=== PATIENT | male | born 1945 | race Hispanic/Latino ===

== ENCOUNTER 2017-05-14 04:53 | Inpatient (IN) | payer MEDICAID, OTHER ==
[2017-05-14] MEDS ORDERED: Sodium Chloride 0.9% 1,000 ML IV STA (05:19)
--- NOTE | 2017-05-14 05:25 | ED PDOC ---
Arrival/HPI - General Chief Complaint: Abdominal Pain Time Seen by Provider: 05/14/17 04:58 - History of Present Illness Narrative History of Present Illness (Text): 05/14/17 05:21 72 yo male, hx of htn, dm, stent, presetns witha bdominal pain x 2 weeks. son states pt visiting from [place]. pt was noticed to be jaundice. no fevers, no diarrhea, no urinary changes Past Medical History - Cardiac Hx Hypertension: Yes - Pulmonary Hx Respiratory Disorders: No - Neurological Hx Neurological Disorder: No - HEENT Hx HEENT Disorder: No - Renal Hx Renal Disorder: No - Endocrine/Metabolic Hx Diabetes Mellitus Type 2: Yes Other/Comment: goiter - Hematological/Oncological Hx Blood Disorders: No - Integumentary Hx Dermatological Disorder: No - Musculoskeletal/Rheumatological Hx Musculoskeletal Disorders: No - Gastrointestinal Hx Gastrointestinal Disorders: No - Genitourinary/Gynecological Hx Prostate Problems: Yes - Psychiatric Hx Psychophysiologic Disorder: No Hx Substance Use: No - Surgical History Hx Coronary Stent: Yes (x1 2011) Other/Comment: prostate Family/Social History - Physician Review Nursing Documentation Reviewed: Yes Family/Social History: Unknown Family HX Smoking Status: Never Smoked Hx Alcohol Use: No Hx Substance Use: No Allergies/Home Meds Allergies/Adverse Reactions: Allergies No Known Allergies Allergy (Verified 05/14/17 05:11) Home Medications: Home Meds Medication Instructions Recorded Confirmed Aspirin [Aspirin Chewable] 100 mg PO DAILY 05/14/17 05/14/17 Levothyroxine [Synthroid] 100 mcg PO DAILY 05/14/17 05/14/17 Review of Systems - Review of Systems Constitutional: Normal Eyes: Normal ENT: Normal Respiratory: Normal Cardiovascular: Normal Gastrointestinal: Abdominal Pain Genitourinary Male: Normal Musculoskeletal: Normal Skin: Other (jaundice) Neurological: Normal Endocrine: Normal Hemo/Lymphatic: Normal Psychiatric: Normal Physical Exam Vital Signs Temp Pulse Resp BP Pulse Ox 05/14/17 12:05 62 18 111/62 99 05/14/17 10:43 62 18 100/66 99 05/14/17 07:25 56 L 18 112/66 98 05/14/17 05:11 98.9 F 67 18 124/67 96 Temperature: Afebrile Blood Pressure: Normal Pulse: Regular Respiratory Rate: Normal Appearance: Positive for: Well-Appearing, Non-Toxic, Comfortable Pain Distress: None Mental Status: Positive for: Alert and Oriented X 3 - Systems Exam Head: Present: Atraumatic, Normocephalic Pupils: Present: PERRL Extroacular Muscles: Present: EOMI Conjunctiva: Present: Icteric Mouth: Present: Moist Mucous Membranes Neck: Present: Normal Range of Motion Respiratory/Chest: Present: Clear to Auscultation, Good Air Exchange. No: Respiratory Distress, Accessory Muscle Use Cardiovascular: Present: Regular Rate and Rhythm, Normal S1, S2. No: Murmurs Abdomen: Present: Tenderness (mild non focal, worse lower). No: Distention, Peritoneal Signs, Rebound, Guarding Back: Present: Normal Inspection Upper Extremity: Present: Normal Inspection. No: Cyanosis, Edema Lower Extremity: Present: Normal Inspection. No: Edema Neurological: Present: GCS=15, CN II-XII Intact, Speech Normal Skin: Present: Warm, Dry, Other (jaundice). No: Rashes Psychiatric: Present: Alert, Oriented x 3, Normal Insight, Normal Concentration Medical Decision Making ED Course and Treatment: 05/14/17 05:24 jaundice- suspect post post hepatic- r/o malcignacy, vs less likely prehepatic - hemolysis - Lab Interpretations Lab Results: 05/14/17 05:28 05/14/17 05:28 Lab Results 05/14/17 06:11: Urine Color Yellow, Urine Appearance Sl cloudy, Urine pH 6.5, Ur Specific [place] 1.010, Urine Protein Trace H, Urine Glucose (UA) Negative, Urine Ketones Negative, Urine Blood Negative, Urine Nitrate Positive H, Urine Bilirubin Large H, Urine Urobilinogen 0.2, Ur Leukocyte Esterase Small H, Urine RBC 0 - 2, Urine WBC 2 - 5, Ur Epithelial Cells 0 - 2, Urine Bacteria Many 05/14/17 05:28: PT 11.5, INR 1.00, APTT 25.4 05/14/17 05:28: WBC 10.0, RBC 4.24, Hgb 12.4 L, Hct 34.3 L, MCV 80.9, MCH 29.2, MCHC 36.2, RDW 16.9 H, Plt Count 265, MPV 10.2, Gran % 77.7 H, Lymph % (Auto) 12.9 L, [place] % (Auto) 8.5 H, Eos % (Auto) 0.8 L, Baso % (Auto) 0.1, Gran # 7.74 H, Lymph # (Auto) 1.3, [place] # (Auto) 0.9 H, Eos # (Auto) 0.1, Baso # (Auto) 0.01 05/14/17 05:28: Ammonia < 9 L 05/14/17 05:28: Sodium 136, Potassium 3.3 L, Chloride 99, Carbon Dioxide 27, Anion Gap 13, BUN 30 H, Creatinine 1.1, Est GFR ( Amer) > 60, Est GFR ( Non-Af Amer) > 60, Random Glucose 103, Calcium 9.5, Total Bilirubin 18.5 H*, Direct Bilirubin 16.4 H, AST 63 H, ALT 60 H, Alkaline Phosphatase 246 H, Total Protein 7.5, Albumin 3.7, Globulin 3.8, Albumin/Globulin Ratio 1.0 L, Lipase 451 H 05/14/17 05:00: Hepatitis A IgM Ab Negative, Hep Bs Antigen Negative, Hep B Core IgM Ab Negative, Hepatitis C Antibody Negative 05/14/17 05:00: Alpha Fetoprotein < 0.8 05/14/17 05:00: Procalcitonin 0.34 05/14/17 05:00: Magnesium 2.4 H - RAD Interpretation Radiology Orders: 05/14/17 05:59 ABD & PELVIS IV CONTRAST ONLY [CT] Stat - Medication Orders Current Medication Orders: Sodium Chloride (Sodium Chloride 0.9%) 1,000 mls @ 100 mls/hr IV .Q10H [facility] Last Admin: 05/14/17 11:23 Dose: 100 mls/hr eMAR Start Stop Document 05/14/17 11:23 [facility] (Rec: 05/14/17 11:24 [facility]-[id number]) Intravenous Solution Start Date 05/14/17 Start Time 11:23 Insulin Human Regular (Humulin R Low) 0 units SC Q6H NINA PRN Reason: Protocol Last Admin: 05/14/17 17:00 Dose: Not Given Non-Admin Reason: Blood Sugar Parameter MAR Blood Glucose Document 05/14/17 17:00 LMN (Rec: 05/14/17 18:43 [place]N [facility] [id number] Blood Glucose Finger Stick Blood Glucose (70-120) 56 Levothyroxine Sodium (Synthroid) 50 mcg IVP DAILY NINA Last Admin: 05/14/17 18:43 Dose: 50 mcg IVP Administration Document 05/14/17 18:43 LMN (Rec: 05/14/17 18:46 LMN [facility] [id number] Charges for Administration # of IVP Administrations 1 Pantoprazole Sodium (Protonix Inj) 40 mg IVP DAILY NINA Discontinued Medications Sodium Chloride (Sodium Chloride 0.9%) 1,000 mls @ 1,000 mls/hr IV .Q1H STA Stop: 05/14/17 06:18 Last Admin: 05/14/17 05:33 Dose: 1,000 mls/hr eMAR Start Stop Document 05/14/17 05:33 AD (Rec: 05/14/17 05:33 AD [id number]) Intravenous Solution Start Date 05/14/17 Start Time 05:33 Ceftriaxone Sodium (Rocephin 1 Gram Ivpb) 1 gm in 100 mls @ 100 mls/hr IVPB DAILY NINA PRN Reason: Protocol Last Admin: 05/14/17 11:22 Dose: 100 mls/hr eMAR Start Stop Document 05/14/17 11:22 INSTRUMENT REPAIR TECHNICIAN (Rec: 05/14/17 11:23 INSTRUMENT REPAIR TECHNICIAN [id number]) Intravenous Solution Start Date 05/14/17 Start Time 11:23 Potassium Chloride (K-Dur 20 Meq Er Tab) 40 meq PO STAT STA Stop: 05/14/17 06:02 Last Admin: 05/14/17 07:04 Dose: 40 meq Potassium Chloride (K-Dur 20 Meq Er Tab) 40 meq PO STAT STA Stop: 05/14/17 18:43 Disposition/Present on Arrival - Present on Arrival Any Indicators Present on Arrival: No History of DVT/PE: No History of Uncontrolled Diabetes: No Urinary Catheter: No History of Decub. Ulcer: No History Surgical Site Infection Following: None - Disposition Have Diagnosis and Disposition been Completed?: Yes Diagnosis: Liver mass, Hyperbilirubinemia, Hypokalemia Disposition: HOSPITALIZED Disposition Time: 07:00 Patient Problems: Current Active Problems Problem Status Onset Anemia Acute Hyperbilirubinemia Acute Hypokalemia Acute Liver mass Acute Condition: FAIR
[2017-05-14 05:56] LABS: PARTIAL THROMBOPLASTIN TIME 25.4 Seconds (25.1-36.5); PROTHROMBIN TIME 11.5 SECONDS (9.4-12.5)
[2017-05-14 05:58] LABS: ALT/SGPT 60 U/L (7-56); AST/SGOT 63 U/L (17-59); BILIRUBIN,DIRECT 16.4 mg/dL (0.0-0.4); BLOOD UREA NITROGEN 30 mg/dL (7-21); CALCIUM 9.5 mg/dL (8.4-10.5); GFR AFRICAN-AMERICAN > 60; GFR NON-AFRICAN AMERICAN > 60; LIPASE 451 U/L (23-300)
[2017-05-14] MEDS ORDERED: Potassium Chloride 20 mEq ER Tab PO STA ×3 (06:01→18:42)
[2017-05-14 06:12] LABS: BASO # 0.01 K/mm3 (0.0-2.0); BASO % 0.1 % (0.0-3.0); EOS # 0.1 (0.0-0.7); EOS % 0.8 % (1.5-5.0); GRAN # 7.74 (1.4-6.5); GRAN % 77.7 % (50.0-68.0); HEMOGLOBIN 12.4 g/dL (14.0-18.0); LYMPH # 1.3 (1.2-3.4); LYMPH % 12.9 % (22.0-35.0); MEAN CELL VOLUME 80.9 fl (80.0-105.0); MEAN CORPUSCULAR HEMOGLOBIN 29.2 pg (25.0-35.0); MEAN CORPUSCULAR HGB CONC 36.2 g/dl (31.0-37.0); MEAN PLATELET VOLUME 10.2 fl (7.0-11.0); MONO # 0.9 (0.1-0.6); MONO % 8.5 % (1.0-6.0); RBC 4.24 10^6/uL (3.5-6.1); RED CELL DISTRIBUTION WIDTH 16.9 % (11.5-14.5)
[2017-05-14 06:13] LABS: ALBUMIN 3.7 g/dL (3.0-4.8)
[2017-05-14 06:26] LABS: PH,URINE 6.5 (4.7-8.0); URINE BILIRUBIN LARGE (NEGATIVE); URINE BLOOD NEGATIVE (NEGATIVE); URINE GLUCOSE (UA) NEGATIVE (NEGATIVE); URINE LEUKOCYTE ESTERASE SMALL Leu/uL (NEGATIVE); URINE PROTEIN TRACE mg/dL (<30 mg/dL); URINE UROBILINOGEN 0.2 E.U./dL (<1 E.U./dL)
[2017-05-14] MEDS ORDERED: Iohexol 350 MG/100 ML VIAL ONE (06:29)
[2017-05-14 06:49] LABS: URINE COLOR YELLOW (YELLOW)
[2017-05-14 06:50] LABS: URINE APPEARANCE SL CLOUDY (CLEAR)
[2017-05-14 06:52] LABS: URINE BACTERIA MANY (NEG); URINE EPITHELIAL CELLS 0 - 2 /hpf (0-5); URINE RBC 0 - 2 /hpf (0-2)
--- NOTE | 2017-05-14 07:28 | ED PDOC ---
Physical Exam Vital Signs Temp Pulse Resp BP Pulse Ox 05/14/17 07:25 56 L 18 112/66 98 05/14/17 05:11 98.9 F 67 18 124/67 96 Medical Decision Making ED Course and Treatment: 05/14/17 07:13 Patient transferred to ms by Dr. Tarango. Patient awaiting follow-up CT scan and to be admitted. 05/14/2017 08:09 Abd/Pelvis CT IMPRESSION: 1. There is nodular airspace disease at the right lung base posteriorly. This could represent pneumonia. Followup imaging is recommended. 2. There is severe intrahepatic biliary dilatation. The common bile duct is not dilated which suggests an obstructing lesion in the region of the alfred hepatis. Surgical consultation is recommended. 3. There is a poorly defined mass in the right hepatic lobe bordering the falciform ligament concerning for malignancy. 4. There is nodularity and induration throughout the mesentery which may reflect peritoneal implants. 5. There is narrowing of the main portal vein. Minimal thrombus within the main portal vein cannot be excluded. Dictator: Rhett Shepard MD 05/14/17 09:[address] Morales, whom recommends Dr. Garcia for GI. Patient to be admitted to med surgical floor. 05/14/17 10:[address] Garcia, GI, who recommends an MRCP +/- contrast and an IR consult, Duarte Guerra. He will follow. Dr. Morales made aware and she will f /u with MRCP. - Lab Interpretations Lab Results: 05/14/17 05:28 05/14/17 05:28 Lab Results 05/14/17 06:11: Urine Color Yellow, Urine Appearance Sl cloudy, Urine pH 6.5, Ur Specific [place] 1.010, Urine Protein Trace H, Urine Glucose (UA) Negative, Urine Ketones Negative, Urine Blood Negative, Urine Nitrate Positive H, Urine Bilirubin Large H, Urine Urobilinogen 0.2, Ur Leukocyte Esterase Small H, Urine RBC 0 - 2, Urine WBC 2 - 5, Ur Epithelial Cells 0 - 2, Urine Bacteria Many 05/14/17 05:28: PT 11.5, INR 1.00, APTT 25.4 05/14/17 05:28: WBC 10.0, RBC 4.24, Hgb 12.4 L, Hct 34.3 L, MCV 80.9, MCH 29.2, MCHC 36.2, RDW 16.9 H, Plt Count 265, MPV 10.2, Gran % 77.7 H, Lymph % (Auto) 12.9 L, [place] % (Auto) 8.5 H, Eos % (Auto) 0.8 L, Baso % (Auto) 0.1, Gran # 7.74 H, Lymph # (Auto) 1.3, [place] # (Auto) 0.9 H, Eos # (Auto) 0.1, Baso # (Auto) 0.01 05/14/17 05:28: Ammonia < 9 L 05/14/17 05:28: Sodium 136, Potassium 3.3 L, Chloride 99, Carbon Dioxide 27, Anion Gap 13, BUN 30 H, Creatinine 1.1, Est GFR ( Amer) > 60, Est GFR ( Non-Af Amer) > 60, Random Glucose 103, Calcium 9.5, Total Bilirubin 18.5 H*, Direct Bilirubin 16.4 H, AST 63 H, ALT 60 H, Alkaline Phosphatase 246 H, Total Protein 7.5, Albumin 3.7, Globulin 3.8, Albumin/Globulin Ratio 1.0 L, Lipase 451 H - RAD Interpretation Radiology Orders: 05/14/17 05:59 ABD & PELVIS IV CONTRAST ONLY [CT] Stat - Medication Orders Current Medication Orders: Ceftriaxone Sodium (Rocephin 1 Gram Ivpb) 1 gm in 100 mls @ 100 mls/hr IVPB DAILY NINA PRN Reason: Protocol Discontinued Medications Sodium Chloride (Sodium Chloride 0.9%) 1,000 mls @ 1,000 mls/hr IV .Q1H STA Stop: 05/14/17 06:18 Last Admin: 05/14/17 05:33 Dose: 1,000 mls/hr eMAR Start Stop Document 05/14/17 05:33 AD (Rec: 05/14/17 05:33 AD [id number]) Intravenous Solution Start Date 05/14/17 Start Time 05:33 Potassium Chloride (K-Dur 20 Meq Er Tab) 40 meq PO STAT STA Stop: 05/14/17 06:02 Last Admin: 05/14/17 07:04 Dose: 40 meq - Scribe Statement The provider has reviewed the documentation as recorded by the Manuel Andrea Provider Scribe Attestation: All medical record entries made by the Scribe were at my direction and personally dictated by me. I have reviewed the chart and agree that the record accurately reflects my personal performance of the history, physical exam, medical decision making, and the department course for this patient. I have also personally directed, reviewed, and agree with the discharge instructions and disposition. Disposition/Present on Arrival - Present on Arrival Any Indicators Present on Arrival: No History of DVT/PE: No History of Uncontrolled Diabetes: No Urinary Catheter: No History of Decub. Ulcer: No History Surgical Site Infection Following: None - Disposition Have Diagnosis and Disposition been Completed?: Yes Diagnosis: Liver mass, Hyperbilirubinemia, Hypokalemia Disposition Time: 10:08 Condition: FAIR Referrals: PCP,NO [Primary Care Provider] - Follow up with primary Forms: [employer] (Slovak)
--- NOTE | 2017-05-14 08:09 | CT ---
EXAM: CT Abdomen and Pelvis With Intravenous Contrast CLINICAL HISTORY: 72 years old, male; Pain; Abdominal pain; Generalized; Additional info: Abd pain, jaundice TECHNIQUE: Axial computed tomography images of the abdomen and pelvis with intravenous contrast. All CT scans at this facility use one or more dose reduction techniques, viz.: automated exposure control; ma/kV adjustment per patient size (including targeted exams where dose is matched to indication; i.e. head); or iterative reconstruction technique. Coronal and sagittal reformatted images were created and reviewed. CONTRAST: 100 mL of [id number] administered intravenously. COMPARISON: No relevant prior studies available. FINDINGS: Lung bases: There is nodular airspace disease at the right lung base posteriorly. This could represent pneumonia. Followup imaging is recommended. ABDOMEN: Liver: There is a poorly defined mass in the right hepatic lobe bordering the falciform ligament concerning for malignancy. Gallbladder and bile ducts: There is severe intrahepatic biliary dilatation. The common bile duct is not dilated which suggests an obstructing lesion in the region of the alfred hepatis. Surgical consultation is recommended. Pancreas: Unremarkable. No mass. No ductal dilation. Spleen: Unremarkable. No splenomegaly. Adrenals: Unremarkable. No mass. Kidneys and ureters: There is moderate right-sided hydronephrosis. There is fullness of the left renal collecting system. Stomach and bowel: There is a moderate amount of stool throughout the colon. No obstruction. No mucosal thickening. Appendix: No findings to suggest acute appendicitis. PELVIS: Bladder: The urinary bladder is moderately distended, please correlate clinically. Reproductive: Unremarkable as visualized. ABDOMEN and PELVIS: Intraperitoneal space: There is nodularity and induration throughout the mesentery which may reflect peritoneal implants. No free air. No significant fluid collection. Bones/joints: No acute fracture. No dislocation. Soft tissues: Unremarkable. Vasculature: There is narrowing of the main portal vein. Minimal thrombus within the main portal vein cannot be excluded. There are calcified atherosclerotic changes of the aorta. No abdominal aortic aneurysm. Lymph nodes: Unremarkable. No enlarged lymph nodes. IMPRESSION: 1. There is nodular airspace disease at the right lung base posteriorly. This could represent pneumonia. Followup imaging is recommended. 2. There is severe intrahepatic biliary dilatation. The common bile duct is not dilated which suggests an obstructing lesion in the region of the alfred hepatis. Surgical consultation is recommended. 3. There is a poorly defined mass in the right hepatic lobe bordering the falciform ligament concerning for malignancy. 4. There is nodularity and induration throughout the mesentery which may reflect peritoneal implants. 5. There is narrowing of the main portal vein. Minimal thrombus within the main portal vein cannot be excluded.
[2017-05-14] MEDS ORDERED: cefTRIAXone 1 gm 1 GM/100 ML BAG IVPB SCH (10:00)
--- NOTE | 2017-05-14 10:12 | CP.PCM.CON ---
History of Present Illness - History of Present Illness History of Present Illness: General Surgery Consult: Dr Bright Re: liver mass, hyperbilirubinemia, jaundice Pt is a 72M with PMH of DM, HTN, and CAD s/p 1 stent. Pt is visiting his son from [place] and does not speak malaysian. Son is bedside to assist with translation. Pt reports that for the past 2 weeks he has been having worsening dull abdominal pain. His pain is diffuse with no specific location, non- radiating, not exarcerbated by movement, positioning or PO intake. He reports normal BMs throughout this time. Denies any N/V, f/c, hemoptysis, hematochezia. He does state that the yellowing of his skin has coincided with his abdominal pain. Pt denies any night sweats or significant recent weight loss PMH: DM2, HTN PSH: PCI (1 stent), ? of prostate biopsy non-smoker, no EtOH use Review of Systems - Review of Systems All systems: reviewed and no additional remarkable complaints except (as per hpi ) Past Patient History - Past Social History Smoking Status: Never Smoked - CARDIAC Hx Hypertension: Yes - PULMONARY Hx Respiratory Disorders: No - NEUROLOGICAL Hx Neurological Disorder: No - HEENT Hx HEENT Problems: No - RENAL Hx Chronic Kidney Disease: No - ENDOCRINE/METABOLIC Hx Diabetes Mellitus Type 2: Yes Other/Comment: goiter - HEMATOLOGICAL/ONCOLOGICAL Hx Blood Disorders: No - INTEGUMENTARY Hx Dermatological Problems: No - MUSCULOSKELETAL/RHEUMATOLOGICAL Hx Musculoskeletal Disorders: No - GASTROINTESTINAL Hx Gastrointestinal Disorders: No - GENITOURINARY/GYNECOLOGICAL Hx Prostate Problems: Yes - PSYCHIATRIC Hx Psychophysiologic Disorder: No Hx Substance Use: No - SURGICAL HISTORY Hx Coronary Stent: Yes (x1 2011) Other/Comment: prostate Meds Allergies/Adverse Reactions: Allergies Allergy/AdvReac Type Severity Reaction Status Date / Time No Known Allergies Allergy Verified 05/14/17 05:11 - Medications Medications: Current Medications Ceftriaxone Sodium (Rocephin 1 Gram Ivpb) 1 gm in 100 mls @ 100 mls/hr IVPB DAILY NINA PRN Reason: Protocol Physical Exam - Constitutional Appears: Non-toxic, No Acute Distress - Head Exam Head Exam: ATRAUMATIC - Eye Exam Eye Exam: Normal appearance, Scleral icterus Pupil Exam: NORMAL ACCOMODATION - ENT Exam ENT Exam: Mucous Membranes Moist - Neck Exam Neck exam: Positive for: Normal Inspection. Negative for: Lymphadenopathy, Tenderness - Respiratory Exam Respiratory Exam: NORMAL BREATHING PATTERN. absent: Accessory Muscle Use, Respiratory Distress - Cardiovascular Exam Cardiovascular Exam: REGULAR RHYTHM. absent: Tachycardia - GI/Abdominal Exam GI & Abdominal Exam: Distended, Soft. absent: Firm, Guarding, Hernia, Mass, Organomegaly, Pulsatile Mass, Rebound, Rigid, Tenderness (pt states pain has resolved after medication) - Rectal Exam Rectal Exam: Deferred - Extremities Exam Extremities exam: Negative for: pedal edema - Neurological Exam Neurological exam: Alert - Psychiatric Exam Psychiatric exam: Normal Affect, Normal Mood - Skin Skin Exam: Dry, Warm Additional comments: jaundice Results - Vital Signs Recent Vital Signs: Last Vital Signs Temp 98.9 F 05/14/17 05:11 Pulse 56 L 05/14/17 07:25 Resp 18 05/14/17 07:25 BP 112/66 05/14/17 07:25 Pulse Ox 98 05/14/17 07:25 - Labs Result Diagrams: 05/14/17 05:28 05/14/17 05:28 Assessment & Plan - Assessment and Plan (Free Text) Assessment: 72[address] evidence of obstructive liver mass w/ jaundice and hyperbilirubinemia Plan: MRCP of abdomen ordered f/u tumor markers and work-up Perc drainage with IR - possible biopsy simultaneously will f/u results initial CT with obstructive liver mass and peritoneal mets will d/w Dr Deangelo Stoner, PGY3
[2017-05-14] MEDS ORDERED: Sodium Chloride 0.9% 1,000 ML IV SCH (11:00)
[2017-05-14] MEDS ORDERED: Gadodiamide 287 MG/ML VIAL (15ML) IV ONE (13:33)
[2017-05-14 15:02] VITALS: BMI 24.0
--- NOTE | 2017-05-14 15:09 | MRI ---
PROCEDURE: MRI Abdomen with and without contrast plus MRCP imaging HISTORY: Elevated bili, liver mass, abdominal pain COMPARISON: None available. TECHNIQUE: Multisequence, multiplanar MR images of the abdomen with and without gadolinium contrast enhancement. 15 cc of Omniscan FINDINGS: LIVER: There is a 3 cm nonenhancing mass in the medial segment of the left lobe of the liver. GALLBLADDER: There is severe intrahepatic ductal dilatation. The level of obstruction is in the region of the alfred hepatis. This is most likely secondary to cholangiocarcinoma especially in considering the adjacent hepatic mass. The common duct is normal in caliber and there is no evidence of a pancreatic mass. . SPLEEN: Unremarkable. PANCREAS: Unremarkable. ADRENALS: Unremarkable. KIDNEYS: Unremarkable. AORTA: No aneurysm. ASCITES: None. PERITONEUM: Unremarkable. LYMPH NODES: Unremarkable. OTHER FINDINGS: None. IMPRESSION: There is severe intrahepatic ductal dilatation. The level of obstruction is in the region of the alfred hepatis. This is most likely secondary to cholangiocarcinoma especially in considering the adjacent hepatic mass. The common duct is normal in caliber and there is no evidence of a pancreatic mass. .
--- NOTE | 2017-05-14 15:17 | RAD ---
PROCEDURE: CHEST RADIOGRAPH, 1 VIEW HISTORY: r/o pneumonia COMPARISON: None available. FINDINGS: LUNGS: Clear. PLEURA: No pneumothorax or pleural fluid seen. CARDIOVASCULAR: Normal. OSSEOUS STRUCTURES: No significant abnormalities. VISUALIZED UPPER ABDOMEN: Normal. OTHER FINDINGS: None. IMPRESSION: No active disease.
--- NOTE | 2017-05-14 15:24 | CP.PCM.CON ---
<Rajesh Schrader - Last Filed: 05/14/17 17:14> History of Present Illness - History of Present Illness History of Present Illness: PGY4 Initial GI Consult Note Mark Lynch is a 72M w/ hx of HTN, DM, HL who presents to the ER for jaundice. Pt returned recently from [place] and his family noticed that he was turning yellow. His family states that it has been occurring for the past 2 weeks. Family also noticed that he was loosing weight, but cannot quantify. Pt also had abd pain, which started yesterday. He stated that it was in the epigastric area and radiated to the lower abdomen. He notes that the pain was at least a 7 out 10. He noted resolution of his pain after pain medication. Pt denies any fever, chills or diaphoresis. Denies any previous colonoscopy or endoscopy. He denies any BRBPR, melena, hematemesis or coffee-ground emesis PMH: DM2, HTN PSH: PCI (1 stent), ? of prostate biopsy non-smoker, no EtOH use Family hx: reviewed and denies any hx of colon ca, liver or cancreas Endo hx: none ROS: 12 point ROS conducted, neg other than above Past Patient History - Past Social History Smoking Status: Former Smoker - CARDIAC Hx Cardiac Disorders: Yes Hx Hypertension: Yes Hx Peripheral Edema: Yes (at times) - PULMONARY Hx Respiratory Disorders: No - NEUROLOGICAL Hx Neurological Disorder: No - HEENT Hx HEENT Problems: No - RENAL Hx Chronic Kidney Disease: No - ENDOCRINE/METABOLIC Other/Comment: hx of surgical removal of goiter. fasting glucose around 125 per son - HEMATOLOGICAL/ONCOLOGICAL Hx Blood Disorders: No - INTEGUMENTARY Hx Dermatological Problems: No - MUSCULOSKELETAL/RHEUMATOLOGICAL Hx Back Pain: Yes Hx Falls: No - GASTROINTESTINAL Hx Gastrointestinal Disorders: No Other/Comment: onset of abd pain 2 weeks ago - GENITOURINARY/GYNECOLOGICAL Hx Prostate Problems: Yes - PSYCHIATRIC Hx Substance Use: No - SURGICAL HISTORY Hx Surgeries: Yes Hx Cardiac Catheterization: Yes Hx Coronary Stent: Yes (2011) Other/Comment: surgery for goiter and prostate Meds Allergies/Adverse Reactions: Allergies Allergy/AdvReac Type Severity Reaction Status Date / Time No Known Allergies Allergy Verified 05/14/17 05:11 - Medications Medications: Current Medications Ceftriaxone Sodium (Rocephin 1 Gram Ivpb) 1 gm in 100 mls @ 100 mls/hr IVPB DAILY NINA PRN Reason: Protocol Last Admin: 05/14/17 11:22 Dose: 100 mls/hr Sodium Chloride (Sodium Chloride 0.9%) 1,000 mls @ 100 mls/hr IV .Q10H NINA Last Admin: 05/14/17 11:23 Dose: 100 mls/hr Insulin Human Regular (Humulin R Low) 0 units SC Q6H NINA PRN Reason: Protocol Levothyroxine Sodium (Synthroid) 50 mcg IVP DAILY NINA Pantoprazole Sodium (Protonix Inj) 40 mg IVP DAILY NINA Physical Exam - Constitutional Appears: Older Than Stated Age, Chronically Ill - Head Exam Head Exam: ATRAUMATIC, NORMOCEPHALIC - Eye Exam Eye Exam: Scleral icterus - ENT Exam ENT Exam: Mucous Membranes Moist, Normal Exam - Neck Exam Neck exam: Positive for: Normal Inspection - Respiratory Exam Respiratory Exam: Clear to Auscultation Bilateral, NORMAL BREATHING PATTERN. absent: Rales, Rhonchi, Wheezes, Respiratory Distress - Cardiovascular Exam Cardiovascular Exam: REGULAR RHYTHM, +S1, +S2 - GI/Abdominal Exam GI & Abdominal Exam: Normal Bowel Sounds, Soft. absent: Diminished Bowel Sounds , Distended, Firm, Guarding, Hernia, Organomegaly, Rebound, Rigid, Tenderness - Extremities Exam Extremities exam: Negative for: joint swelling, pedal edema - Back Exam Back exam: NORMAL INSPECTION - Neurological Exam Neurological exam: Alert, Oriented x3 - Psychiatric Exam Psychiatric exam: Normal Affect, Normal Mood - Skin Skin Exam: Dry, Intact, Normal Color, Warm Results - Vital Signs Recent Vital Signs: Last Vital Signs Temp 99.2 F 05/14/17 14:23 Pulse 60 05/14/17 14:23 Resp 20 05/14/17 14:23 BP 112/65 05/14/17 14:23 Pulse Ox 98 05/14/17 12:20 - Labs Result Diagrams: 05/14/17 05:28 05/14/17 05:28 Labs: Laboratory Results - last 24 hr 05/14/17 11:53 TSH 3rd Generation 1.59 Assessment & Plan - Assessment and Plan (Free Text) Assessment: Mark Lynch is a 72M w/ hx of DM, HTN, HL who presents to the ER with jd. MRI revealed a mass at the alfred hepatitis, and suspicion of cholangiocarcinoma. 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 Shankar (IR) and primary team, will try to setup procedure -surgery on board -send for viral hepatitis work-up, automimmine, CEA, Ca-19-9 D/W Dr. bennett <Dre Bennett - Last Filed: 05/14/17 19:23> Meds - Medications Medications: Current Medications Sodium Chloride (Sodium Chloride 0.9%) 1,000 mls @ 100 mls/hr IV .Q10H NINA Last Admin: 05/14/17 11:23 Dose: 100 mls/hr Insulin Human Regular (Humulin R Low) 0 units SC Q6H NINA PRN Reason: Protocol Last Admin: 05/14/17 17:00 Dose: Not Given Levothyroxine Sodium (Synthroid) 50 mcg IVP DAILY NINA Last Admin: 05/14/17 18:43 Dose: 50 mcg Pantoprazole Sodium (Protonix Inj) 40 mg IVP DAILY NINA Results - Vital Signs Recent Vital Signs: Last Vital Signs Temp 99.2 F 05/14/17 14:23 Pulse 60 05/14/17 14:23 Resp 20 05/14/17 14:23 BP 112/65 05/14/17 14:23 Pulse Ox 96 05/14/17 14:00 - Labs Result Diagrams: 05/14/17 05:28 05/14/17 05:28 Labs: Laboratory Results - last 24 hr 05/14/17 05/14/17 11:53 17:15 POC Glucose (mg/dL) 56 L TSH 3rd Generation 1.59 Attending/Attestation - Attestation I have personally seen and examined this patient.: Yes I have fully participated in the care of the patient.: Yes I have reviewed all pertinent clinical information: Yes Notes (Text): 05/14/17 19:22 72 year old male with DM, HTN who presents with jaundice found to have mine- hilar mass suspicious for cholangiocarcinoma. Recommend surgery evaluation. If patient is not a surgical candidate, which seems unlikely due to portal vein involvement and peritoneal implants, then would recommend IR guided biopsy and biliary drainage. Eval for chronic liver disease and tumor markers.
--- NOTE | 2017-05-14 15:54 | CP.PCM.HP ---
<Jak Mckinneynatalia - Last Filed: 05/14/17 16:11> History of Present Illness - History of Present Illness History of Present Illness: Medicine H/P note for Dr. Morales - Jak Mckinney DO, PGY - 1 Chief Complaint: Abdominal Pain HPI: 72 year old albanian speaking male with past medical history significant for hypertension, diabetes, hypothyroidism 2/2 thyroidectomy, CAD s/p stent in 2011 with completed plavix presents to [facility] two week duration of abdominal pain. Patient is originally from [place], came here to visit his family a week ago. 15 days ago, patient states that he went from his baseline of no pain to having severe abdominal pain. He went to his doctor in [facility], who did a RUQ abdominal ultrasound, which showed some obstruction but no gall bladder disease. Patient then came to the [place], where he began seeing changes in his urine color (dark) and stool (white stools). Throughout this time, patient was intermittently unable to tolerate PO intake, and was having nausea and vomiting. Patient's son noticed color changes (jaundice), and brought his father in today because the abdominal pain has become much more severe. Of note , patient has lost 12 kg (84 kg to 72 kg) over the last two weeks. Patient denies any other symptoms including chest pain, shortness of breath, diarrhea Past Surgical History: Oral surgery removing abscess; Prostate surgery with biopsy showing benign disease; Coronary stent; Thyroidectomy Past Medical History: Hypertension, Diabetes, Hypothyroidism, CAD Allergies: NKDA Social History: Quit smoking 25 years ago; Denies alcohol, illicits Hospitalizations: Recently in [place] with abdominal ultrasound for same complaint Family History: Patient denies Medications: Reviewed, See MAR Review of Systems: 12 point ROS obtained and negative, except as per HPI PMD: None, patient from [place] Present on Admission - Present on Admission Any Indicators Present on Admission: No Past Patient History - Past Social History Smoking Status: Former Smoker - CARDIAC Hx Cardiac Disorders: Yes Hx Hypertension: Yes Hx Peripheral Edema: Yes (at times) - PULMONARY Hx Respiratory Disorders: No - NEUROLOGICAL Hx Neurological Disorder: No - HEENT Hx HEENT Problems: No - RENAL Hx Chronic Kidney Disease: No - ENDOCRINE/METABOLIC Other/Comment: hx of surgical removal of goiter. fasting glucose around 125 per son - HEMATOLOGICAL/ONCOLOGICAL Hx Blood Disorders: No - INTEGUMENTARY Hx Dermatological Problems: No - MUSCULOSKELETAL/RHEUMATOLOGICAL Hx Back Pain: Yes Hx Falls: No - GASTROINTESTINAL Hx Gastrointestinal Disorders: No Other/Comment: onset of abd pain 2 weeks ago - GENITOURINARY/GYNECOLOGICAL Hx Prostate Problems: Yes - PSYCHIATRIC Hx Substance Use: No - SURGICAL HISTORY Hx Surgeries: Yes Hx Cardiac Catheterization: Yes Hx Coronary Stent: Yes (2011) Other/Comment: surgery for goiter and prostate Meds Allergies/Adverse Reactions: Allergies Allergy/AdvReac Type Severity Reaction Status Date / Time No Known Allergies Allergy Verified 05/14/17 05:11 Physical Exam - Constitutional Appears: Well - Head Exam Head Exam: ATRAUMATIC, NORMAL INSPECTION, NORMOCEPHALIC - Eye Exam Eye Exam: EOMI, Normal appearance, PERRL Pupil Exam: NORMAL ACCOMODATION, PERRL - ENT Exam ENT Exam: Mucous Membranes Moist, Normal Exam - Neck Exam Neck exam: Positive for: Normal Inspection - Respiratory Exam Respiratory Exam: Clear to Auscultation Bilateral, NORMAL BREATHING PATTERN - Cardiovascular Exam Cardiovascular Exam: REGULAR RHYTHM - GI/Abdominal Exam GI & Abdominal Exam: Normal Bowel Sounds, Soft. absent: Tenderness - Extremities Exam Extremities exam: Positive for: normal inspection - Back Exam Back exam: NORMAL INSPECTION - Neurological Exam Neurological exam: Alert, CN II-XII Intact, Normal Gait, Oriented x3, Reflexes Normal - Psychiatric Exam Psychiatric exam: Normal Affect, Normal Mood - Skin Skin Exam: Dry, Intact, Normal Color, Warm Results - Vital Signs Recent Vital Signs: Last Vital Signs Temp 99.2 F 05/14/17 14:23 Pulse 60 05/14/17 14:23 Resp 20 05/14/17 14:23 BP 112/65 05/14/17 14:23 Pulse Ox 98 05/14/17 12:20 - Labs Result Diagrams: 05/14/17 05:28 05/14/17 05:28 Labs: Laboratory Results - last 24 hr 05/14/17 11:53 TSH 3rd Generation 1.59 Assessment & Plan - Assessment and Plan (Free Text) Assessment: Assessment 72 year old albanian speaking male with past medical history significant for hypertension, diabetes, hypothyroidism 2/2 thyroidectomy, CAD s/p stent in 2011 with completed plavix presents to [facility] two week duration of abdominal pain. CT Abdomen pelvis shows mild dilation of common bile duct (not in official read) , and shows obstructing lesion in the region of the alfred hepatis as well as mass in the right hepatic lobe concerning for malignancy. Direct bilirubin and Total bilirubin are grossly elevated with elevation in Alk Phos; however, given CT Abdomen pelvis findings, less likely a picture of biliary sludge or gall bladder etiology and most likely hyperbilirubinemia due to obstruction by mass. Patient also has a UTI with pos nitrates and small leuk esterase. Plan Abdominal pain, possibly 2/2 to hepatic malignancy VS biliary obstruction - Surgery consult: Dr. Bright MRCP of abdomen ordered f/u tumor markers and work-up Perc drainage with IR - possible biopsy simultaneously - GI Consult: Dr. Garcia - CT Abd/Pelvis findings as above - Possible Percutaneous Transhepatic Cholangiography Hyperbilirubinemia, likely 2/2 Biliary Obstruction due to Hepatic malignancy - As above - Hepatitis panel, AFP, IGG, KAUSHIK IFA, Hep BE Ag, Mitochondrial Ab, Smooth Muscle Ab UTI - Rocephin History of CAD s/p Stents - Daily ASA History of Hypertension - Patient is normotensive right now - Patient takes medication from [place] - will address if patient's blood pressure changes History of Diabetes - RISS Low - Accuchecks History of Hypothyroidism - 50 mcg IVP GI and DVT Prophylaxis - Protonix, Heparin <Rangasamy,Ajantha - Last Filed: 05/15/17 14:00> Results - Vital Signs Recent Vital Signs: Last Vital Signs Temp 98.4 F 05/15/17 06:00 Pulse 68 05/15/17 06:00 Resp 20 05/15/17 06:00 BP 119/72 05/15/17 06:00 Pulse Ox 96 05/15/17 06:00 - Labs Result Diagrams: 05/15/17 06:45 05/15/17 07:00 Labs: Laboratory Results - last 24 hr 05/14/17 05/15/17 05/15/17 17:15 00:12 05:59 WBC RBC Hgb Hct MCV MCH MCHC RDW Plt Count MPV Gran % Lymph % (Auto) [place] % (Auto) Eos % (Auto) Baso % (Auto) Gran # Lymph # (Auto) [place] # (Auto) Eos # (Auto) Baso # (Auto) Retic Count Sodium Potassium Chloride Carbon Dioxide Anion Gap BUN Creatinine Est GFR ( Amer) Est GFR (Non-Af Amer) POC Glucose (mg/dL) 56 L 70 71 Random Glucose Calcium Ferritin Total Bilirubin Direct Bilirubin AST ALT Alkaline Phosphatase Total Protein Albumin Globulin Albumin/Globulin Ratio Carcinoembryonic Ag CA 19-9 Antigen Vitamin B12 Folate IgG Hepatitis A IgM Ab Hep Bs Antigen Hep B Core IgM Ab Hepatitis C Antibody 05/15/17 05/15/17 05/15/17 06:45 06:45 06:45 WBC RBC Hgb Hct MCV MCH MCHC RDW Plt Count MPV Gran % Lymph % (Auto) [place] % (Auto) Eos % (Auto) Baso % (Auto) Gran # Lymph # (Auto) [place] # (Auto) Eos # (Auto) Baso # (Auto) Retic Count Sodium Potassium Chloride Carbon Dioxide Anion Gap BUN Creatinine Est GFR ( Amer) Est GFR (Non-Af Amer) POC Glucose (mg/dL) Random Glucose Calcium Ferritin 235.0 Total Bilirubin Direct Bilirubin AST ALT Alkaline Phosphatase Total Protein Albumin Globulin Albumin/Globulin Ratio Carcinoembryonic Ag 7.4 H CA 19-9 Antigen 6510 H Vitamin B12 900 Folate 14.8 IgG 731.3 Hepatitis A IgM Ab Negative Hep Bs Antigen Negative Negative Hep B Core IgM Ab Negative Negative Hepatitis C Antibody Negative 05/15/17 05/15/17 05/15/17 06:45 06:45 07:00 WBC 6.2 D RBC 3.82 Hgb 10.9 L Hct 31.2 L MCV 81.7 MCH 28.5 MCHC 34.9 RDW 17.4 H Plt Count 284 MPV 10.6 Gran % 70.1 H Lymph % (Auto) 21.3 L [place] % (Auto) 6.5 H Eos % (Auto) 1.9 Baso % (Auto) 0.2 Gran # 4.34 Lymph # (Auto) 1.3 [place] # (Auto) 0.4 Eos # (Auto) 0.1 Baso # (Auto) 0.01 Retic Count 1.55 H Sodium 142 Potassium 4.2 Chloride 107 Carbon Dioxide 27 Anion Gap 13 BUN 18 Creatinine 0.8 Est GFR ( Amer) > 60 Est GFR (Non-Af Amer) > 60 POC Glucose (mg/dL) Random Glucose 81 Calcium 9.2 Ferritin Total Bilirubin 17.4 H Direct Bilirubin 15.4 H AST 91 H D ALT 65 H Alkaline Phosphatase 192 H D Total Protein 6.5 Albumin 3.1 Globulin 3.4 Albumin/Globulin Ratio 0.9 L Carcinoembryonic Ag CA 19-9 Antigen Vitamin B12 Folate IgG Hepatitis A IgM Ab Hep Bs Antigen Hep B Core IgM Ab Hepatitis C Antibody Attending/Attestation - Attestation I have personally seen and examined this patient.: Yes I have fully participated in the care of the patient.: Yes I have reviewed all pertinent clinical information: Yes Notes (Text): 05/15/17 13:52 Attending note; Patient seen and examined with resident in ER. Patient's son by the bedside helping with history. Patient is a 72 year old Russian speaking male from [place] with past medical history significant for hypertension, diabetes, hypothyroidism 2/2 thyroidectomy , CAD s/p stent in 2011 with completed plavix, recently diagnosed liver problem in [place] presents to [facility] with abdominal pain. Patient's son also noticed yellow skin. Patient also complaining of occasional nausea. Currently not in any acute distress. Apparently the patient was told by physician in [place] that he has a liver problem. Further information not available. Currently with obstructive jaundice. CT abdomen and pelvis showed dilated intra- ductal dilatation and liver mass and nodularity in the mesentery suggesting metastatic disease. MRCP is negative for CBD stone. 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 There is adjacent liver mass. Results reviewed with GI and surgery. Case discussed with oncology in detail. AFP is negative. CEA, CA 199 ordered. Case discussed with interventional radiologist in detail. Plan for biliary stent and liver biopsy tomorrow. 05/15/17 13:57
[2017-05-14 16:51] LABS: HEPATITIS B SURFACE AG Negative (NEGATIVE)
[2017-05-14 16:57] LABS: HEPATITIS A IGM NEGATIVE (NEGATIVE); HEPATITIS B CORE AB NEGATIVE (NEGATIVE)
[2017-05-14] MEDS: Insulin Reg-LOW-Coverage SC SCH (17:00)
[2017-05-14 17:09] LABS: HEPATITIS C ANTIBODY NEGATIVE (NEGATIVE)
--- NOTE | 2017-05-14 17:26 | CP.PCM.CON ---
History of Present Illness - History of Present Illness History of Present Illness: 72 year old male with a history of hypothyroid, cAD s/p stent, DM, HTN, admitted with obstructive jaundice secondary to liver mass. The patient recently traveled from [place]. He apparently was found to have a liver mass by ultrasound in his country. He does note to darkening of his skin and yellowing of his eyes. He denies fevers and chills. Imaging shows intrahepatic ductal dilatation, liver mass, and mesenteric nodularity suggestive of peritoneal implants. Past medical history: hypothyroid, cAD s/p stent, DM, HTN Past surgical history: Thyroidectomy Family history: Denies hematologic and oncologic problems Social history: Former tobacco abuse Allergies: NKA Review of systems: All remaining review of systems including HEENT, cardiovascular, respiratory, gastrointestinal, genitourinary, musculoskeletal, dermatologic, neurologic, and psychiatric are negative unless mentioned in the HPI. Past Patient History - Past Social History Smoking Status: Former Smoker - CARDIAC Hx Cardiac Disorders: Yes Hx Hypertension: Yes Hx Peripheral Edema: Yes (at times) - PULMONARY Hx Respiratory Disorders: No - NEUROLOGICAL Hx Neurological Disorder: No - HEENT Hx HEENT Problems: No - RENAL Hx Chronic Kidney Disease: No - ENDOCRINE/METABOLIC Other/Comment: hx of surgical removal of goiter. fasting glucose around 125 per son - HEMATOLOGICAL/ONCOLOGICAL Hx Blood Disorders: No - INTEGUMENTARY Hx Dermatological Problems: No - MUSCULOSKELETAL/RHEUMATOLOGICAL Hx Back Pain: Yes Hx Falls: No - GASTROINTESTINAL Hx Gastrointestinal Disorders: No Other/Comment: onset of abd pain 2 weeks ago - GENITOURINARY/GYNECOLOGICAL Hx Prostate Problems: Yes - PSYCHIATRIC Hx Substance Use: No - SURGICAL HISTORY Hx Surgeries: Yes Hx Cardiac Catheterization: Yes Hx Coronary Stent: Yes (2011) Other/Comment: surgery for goiter and prostate Meds Allergies/Adverse Reactions: Allergies Allergy/AdvReac Type Severity Reaction Status Date / Time No Known Allergies Allergy Verified 05/14/17 05:11 - Medications Medications: Current Medications Sodium Chloride (Sodium Chloride 0.9%) 1,000 mls @ 100 mls/hr IV .Q10H NINA Last Admin: 05/14/17 11:23 Dose: 100 mls/hr Insulin Human Regular (Humulin R Low) 0 units SC Q6H NINA PRN Reason: Protocol Levothyroxine Sodium (Synthroid) 50 mcg IVP DAILY NINA Pantoprazole Sodium (Protonix Inj) 40 mg IVP DAILY NINA Physical Exam - Head Exam Head Exam: ATRAUMATIC - Eye Exam Eye Exam: Scleral icterus - ENT Exam ENT Exam: Mucous Membranes Dry - Respiratory Exam Respiratory Exam: NORMAL BREATHING PATTERN - Cardiovascular Exam Cardiovascular Exam: +S1, +S2 - GI/Abdominal Exam GI & Abdominal Exam: Normal Bowel Sounds - Neurological Exam Neurological exam: Oriented x3 - Psychiatric Exam Psychiatric exam: Normal Affect, Normal Mood - Skin Skin Exam: Warm Results - Vital Signs Recent Vital Signs: Last Vital Signs Temp 99.2 F 05/14/17 14:23 Pulse 60 05/14/17 14:23 Resp 20 05/14/17 14:23 BP 112/65 05/14/17 14:23 Pulse Ox 96 05/14/17 14:00 - Labs Result Diagrams: 05/14/17 05:28 05/14/17 05:28 Labs: Laboratory Results - last 24 hr 05/14/17 05/14/17 11:53 17:15 POC Glucose (mg/dL) 56 L TSH 3rd Generation 1.59 Assessment & Plan (1) Liver mass Assessment and Plan: suspicious for malignancy ? cholangiocarcinoma AFP normal, will add CA 19-[address] chest to complete staging peritoneal implants on imaging suggestive of stage IV disease intervention for obstructive jaundice recommend liver lesion biopsy or brushing if ERCP to be done for pathologic determination Status: Acute (2) Anemia Assessment and Plan: will check ferritin, retic count, b12, folate to further characterize Thank you for this interesting consult. Status: Acute
[2017-05-14] MEDS: Levothyroxine 100 mcg (0.1 mg) Inj IVP SCH (18:43)
--- NOTE | 2017-05-14 19:09 | CARD ---
APPROVED REPORT EKG Measurement Heart [id number] <Conclusion> Sinus rhythm with 1st degree AV block Left anterior fascicular block Abnormal ECG
[2017-05-15] MEDS: Insulin Reg-LOW-Coverage SC SCH ×2 (00:27→06:23)
[2017-05-15] MEDS ORDERED: Morphine 2 mg/2 mL syringe IVP STA (03:09)
--- NOTE | 2017-05-15 07:08 | CP.PCM.PN ---
<RacielRajesh - Last Filed: 05/15/17 08:26> Subjective - Date & Time of Evaluation Date of Evaluation: 05/15/17 Time of Evaluation: 06:45 - Subjective Subjective: PGY4 GI Progress NOte Pt seen and examined bedside No complaints NPO denies any abd pain ROS: 12 point ROS conducted, neg other than above Objective - Vital Signs/Intake and Output Vital Signs (last 24 hours): Temp Pulse Resp BP Pulse Ox 99.8 F H 67 20 103/51 L 95 05/14/17 22:00 05/14/17 22:00 05/14/17 22:00 05/14/17 22:00 05/14/17 22:00 Intake and Output: 05/15/17 05/15/17 06:59 18:59 Intake Total 1740 Output Total 1150 Balance 590 - Medications Medications: Current Medications Sodium Chloride (Sodium Chloride 0.9%) 1,000 mls @ 100 mls/hr IV .Q10H [facility] Last Admin: 05/14/17 11:23 Dose: 100 mls/hr Insulin Human Regular (Humulin R Low) 0 units SC Q6H [facility] PRN Reason: Protocol Last Admin: 05/15/17 06:23 Dose: Not Given Levothyroxine Sodium (Synthroid) 50 mcg IVP DAILY [facility] Last Admin: 05/14/17 18:43 Dose: 50 mcg Pantoprazole Sodium (Protonix Inj) 40 mg IVP DAILY [facility] - Labs Labs: PT 11.5 SECONDS (9.4-12.5) 05/14/17 05:28 INR 1.00 (0.93-1.08) 05/14/17 05:28 APTT 25.4 Seconds (25.1-36.5) 05/14/17 05:28 - Constitutional Appears: Well, No Acute Distress - Head Exam Head Exam: ATRAUMATIC, NORMOCEPHALIC - Eye Exam Eye Exam: Scleral icterus - ENT Exam ENT Exam: Mucous Membranes Moist, Normal Exam - Neck Exam Neck Exam: Normal Inspection - Respiratory Exam Respiratory Exam: Clear to Ausculation Bilateral, NORMAL BREATHING PATTERN. absent: Rales, Rhonchi, Wheezes, Respiratory Distress - Cardiovascular Exam Cardiovascular Exam: REGULAR RHYTHM, +S1, +S2 - GI/Abdominal Exam GI & Abdominal Exam: Soft, Normal Bowel Sounds. absent: Firm, Guarding, Rigid, Tenderness, Mass, Organomegaly, Rebound - Extremities Exam Extremities Exam: absent: Joint Swelling, Pedal Edema - Neurological Exam Neurological Exam: Alert, Awake, Oriented x3 - Psychiatric Exam Psychiatric exam: Normal Affect, Normal Mood - Skin Skin Exam: Dry, Intact (juandiced), Warm Assessment and Plan - Assessment and Plan (Free Text) Assessment: Mark Lynch is a 72M w/ hx of DM, HTN, HL who presents to the ER with jd. MRI revealed a mass at the alfred hepatitis, and suspicion of cholangiocarcinoma. Jd Intrahepatic duct dilatation/obstruction Mass in the alfred hepatitis likely cholangiocarcinoma Plan: -oncology recommendations notes -will need a percutaneous drain, mass and liver biopsy -scheduled for procedure at [facility], transport plans pending -CEA: WNL -can add cholestyramine for purititis -surgery on board -send for viral hepatitis work-up, automimmine, Ca-19-9 Will D/W Dr. Dugan <Cristino Dugan - Last Filed: 05/15/17 09:26> Objective - Vital Signs/Intake and Output Vital Signs (last 24 hours): Temp Pulse Resp BP Pulse Ox 98.4 F 68 20 119/72 96 05/15/17 06:00 05/15/17 06:00 05/15/17 06:00 05/15/17 06:00 05/15/17 06:00 Intake and Output: 05/15/17 05/15/17 06:59 18:59 Intake Total 1740 Output Total 1150 Balance 590 - Medications Medications: Current Medications Cholestyramine Resin (Questran) 4 gm PO DAILY [facility] Dextrose/Sodium Chloride (Dextrose 5%/0.45% Ns 1000 Ml) 1,000 mls @ 100 mls/hr IV .Q10H [facility] Insulin Human Regular (Humulin R Low) 0 units SC Q6H [facility] PRN Reason: Protocol Last Admin: 05/15/17 06:23 Dose: Not Given Levothyroxine Sodium (Synthroid) 50 mcg IVP DAILY [facility] Last Admin: 05/14/17 18:43 Dose: 50 mcg Pantoprazole Sodium (Protonix Inj) 40 mg IVP DAILY [facility] - Labs Labs: 05/15/17 06:45 05/15/17 07:00 PT 11.5 SECONDS (9.4-12.5) 05/14/17 05:28 INR 1.00 (0.93-1.08) 05/14/17 05:28 APTT 25.4 Seconds (25.1-36.5) 05/14/17 05:28 Attending/Attestation - Attestation I have personally seen and examined this patient.: Yes I have fully participated in the care of the patient.: Yes I have reviewed all pertinent clinical information, including history, physical exam and plan: Yes Notes (Text): 05/15/17 09:23 I have seen and examined patient with GI fellow. No acute events overnight, patient resting in bed comfortably, son at bedside. He denies abdominal pain, nausea, vomiting, fever/chills. Tolerating PO diet without difficulty. 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 Overall poor patient prognosis. Will sign off case, please reconsult as necessary, thank you.
[2017-05-15 07:26] LABS: BASO # 0.01 K/mm3 (0.0-2.0); BASO % 0.2 % (0.0-3.0); EOS # 0.1 (0.0-0.7); EOS % 1.9 % (1.5-5.0); GRAN # 4.34 (1.4-6.5); GRAN % 70.1 % (50.0-68.0); HEMOGLOBIN 10.9 g/dL (14.0-18.0); LYMPH # 1.3 (1.2-3.4); LYMPH % 21.3 % (22.0-35.0); MEAN CELL VOLUME 81.7 fl (80.0-105.0); MEAN CORPUSCULAR HEMOGLOBIN 28.5 pg (25.0-35.0); MEAN CORPUSCULAR HGB CONC 34.9 g/dl (31.0-37.0); MEAN PLATELET VOLUME 10.6 fl (7.0-11.0); MONO # 0.4 (0.1-0.6); MONO % 6.5 % (1.0-6.0); RBC 3.82 10^6/uL (3.5-6.1); RED CELL DISTRIBUTION WIDTH 17.4 % (11.5-14.5); WHITE BLOOD COUNT 6.2 10^3/ul (4.5-11.0)
[2017-05-15] MEDS ORDERED: Iohexol 350 MG/100 ML VIAL ONE (07:26)
--- NOTE | 2017-05-15 07:37 | CP.PCM.PN ---
Subjective - Date & Time of Evaluation Date of Evaluation: 05/15/17 Time of Evaluation: 07:33 - Subjective Subjective: General Surgery: Dr Bright Pt S&E. Denies pain. LIBERTY per nursing. Pt is scheduled for procedure at [facility] today ( liver biopsy, liver mass biopsy, and percutaneous drain). Objective - Vital Signs/Intake and Output Vital Signs (last 24 hours): Temp Pulse Resp BP Pulse Ox 99.8 F H 67 20 103/51 L 95 05/14/17 22:00 05/14/17 22:00 05/14/17 22:00 05/14/17 22:00 05/14/17 22:00 Intake and Output: 05/15/17 05/15/17 06:59 18:59 Intake Total 1740 Output Total 1150 Balance 590 - Medications Medications: Current Medications Cholestyramine Resin (Questran) 4 gm PO DAILY [facility] Sodium Chloride (Sodium Chloride 0.9%) 1,000 mls @ 100 mls/hr IV .Q10H [facility] Last Admin: 05/14/17 11:23 Dose: 100 mls/hr Insulin Human Regular (Humulin R Low) 0 units SC Q6H [facility] PRN Reason: Protocol Last Admin: 05/15/17 06:23 Dose: Not Given Levothyroxine Sodium (Synthroid) 50 mcg IVP DAILY [facility] Last Admin: 05/14/17 18:43 Dose: 50 mcg Pantoprazole Sodium (Protonix Inj) 40 mg IVP DAILY [facility] - Labs Labs: 05/15/17 06:45 PT 11.5 SECONDS (9.4-12.5) 05/14/17 05:28 INR 1.00 (0.93-1.08) 05/14/17 05:28 APTT 25.4 Seconds (25.1-36.5) 05/14/17 05:28 - Constitutional Appears: Non-toxic, No Acute Distress - Eye Exam Eye Exam: Normal appearance, Scleral icterus - ENT Exam ENT Exam: Mucous Membranes Moist - Respiratory Exam Respiratory Exam: absent: Accessory Muscle Use, Respiratory Distress - Cardiovascular Exam Cardiovascular Exam: REGULAR RHYTHM. absent: Tachycardia - GI/Abdominal Exam GI & Abdominal Exam: Soft. absent: Distended, Firm, Tenderness, Hernia, Mass - Neurological Exam Neurological Exam: Alert, Awake - Psychiatric Exam Psychiatric exam: Normal Affect - Skin Skin Exam: Warm. absent: Normal Color (jaundice) Assessment and Plan - Assessment and Plan (Free Text) Assessment: 72M with obstructive jaundice highly suspicious for cholangiocarcinoma Plan: onc/GI recs noted agree with today's plan for biopsy/perc drainage/staging further recommendations to follow pending work-up will d/w Dr Deangelo Stoner, PGY3
[2017-05-15] MEDS ORDERED: Dextrose 5%/0.45% NS 1,000 ML IV SCH (08:30)
[2017-05-15 08:37] LABS: ALB/GLOB RATIO 0.9 (1.1-1.8); ALBUMIN 3.1 g/dL (3.0-4.8); ALT/SGPT 65 U/L (7-56); AST/SGOT 91 U/L (17-59); BILIRUBIN,DIRECT 15.4 mg/dL (0.0-0.4); BLOOD UREA NITROGEN 18 mg/dL (7-21); CALCIUM 9.2 mg/dL (8.4-10.5); GFR AFRICAN-AMERICAN > 60; GFR NON-AFRICAN AMERICAN > 60
[2017-05-15] MEDS: Cholestyramine 4 gm/Pkt UD PO SCH (10:47)
[2017-05-15] MEDS: Levothyroxine 100 mcg (0.1 mg) Inj IVP SCH (10:47)
[2017-05-15 11:51] LABS: IMMUNOGLOBULIN G 731.3 mg/dL (700.0-1600.0)
[2017-05-15 12:17] LABS: HEPATITIS B SURFACE AG Negative (NEGATIVE)
[2017-05-15 12:18] LABS: HEPATITIS B SURFACE AG Negative (NEGATIVE)
[2017-05-15 12:23] LABS: HEPATITIS A IGM NEGATIVE (NEGATIVE); HEPATITIS B CORE AB NEGATIVE (NEGATIVE)
[2017-05-15 12:35] LABS: HEPATITIS C ANTIBODY NEGATIVE (NEGATIVE)
[2017-05-15 12:52] LABS: FOLATE 14.8 ng/mL
--- NOTE | 2017-05-15 13:37 | CP.PCM.PN ---
<HankJak Benavidez - Last Filed: 05/15/17 13:28> Subjective - Date & Time of Evaluation Date of Evaluation: 05/15/17 Time of Evaluation: 13:37 - Subjective Subjective: Medicine progress note: Dr. Morales Patient seen and examined at bedside. Patient denies any complaints, son at bedside, is aware of the procedure today. States that pain is better today. Patient apparently had work up in [place] in which his doctor told him that he would have to get a drain and a tumor removal. Objective - Vital Signs/Intake and Output Vital Signs (last 24 hours): Temp Pulse Resp BP Pulse Ox 98.4 F 68 20 119/72 96 05/15/17 06:00 05/15/17 06:00 05/15/17 06:00 05/15/17 06:00 05/15/17 06:00 Intake and Output: 05/15/17 05/15/17 06:59 18:59 Intake Total 1740 Output Total 1150 Balance 590 - Medications Medications: Current Medications Cholestyramine Resin (Questran) 4 gm PO DAILY [facility] Last Admin: 05/15/17 10:47 Dose: Not Given Dextrose/Sodium Chloride (Dextrose 5%/0.45% Ns 1000 Ml) 1,000 mls @ 100 mls/hr IV .Q10H [facility] Last Admin: 05/15/17 10:45 Dose: 100 mls/hr Insulin Human Regular (Humulin R Low) 0 units SC Q6H [facility] PRN Reason: Protocol Last Admin: 05/15/17 06:23 Dose: Not Given Levothyroxine Sodium (Synthroid) 50 mcg IVP DAILY [facility] Last Admin: 05/15/17 10:47 Dose: 50 mcg Pantoprazole Sodium (Protonix Inj) 40 mg IVP DAILY [facility] Last Admin: 05/15/17 10:48 Dose: 40 mg - Labs Labs: 05/15/17 06:45 05/15/17 07:00 PT 11.5 SECONDS (9.4-12.5) 05/14/17 05:28 INR 1.00 (0.93-1.08) 05/14/17 05:28 APTT 25.4 Seconds (25.1-36.5) 05/14/17 05:28 - Constitutional Appears: Well - Head Exam Head Exam: ATRAUMATIC, NORMAL INSPECTION, NORMOCEPHALIC - Eye Exam Eye Exam: EOMI, Normal appearance, PERRL Pupil Exam: NORMAL ACCOMODATION, PERRL - ENT Exam ENT Exam: Mucous Membranes Moist, Normal Exam - Neck Exam Neck Exam: Full ROM, Normal Inspection. absent: Lymphadenopathy - Respiratory Exam Respiratory Exam: Clear to Ausculation Bilateral, NORMAL BREATHING PATTERN - Cardiovascular Exam Cardiovascular Exam: REGULAR RHYTHM, +S1, +S2. absent: Murmur - GI/Abdominal Exam GI & Abdominal Exam: Soft, Normal Bowel Sounds. absent: Tenderness - Extremities Exam Extremities Exam: Full ROM, Normal Capillary Refill, Normal Inspection. 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 CT Abdomen pelvis shows mild dilation of common bile duct (not in official read) , and shows obstructing lesion in the region of the alfred hepatis as well as mass in the right hepatic lobe concerning for malignancy. Direct bilirubin and Total bilirubin are grossly elevated with elevation in Alk Phos; however, given CT Abdomen pelvis findings, less likely a picture of biliary sludge or gall bladder etiology and most likely hyperbilirubinemia due to obstruction by mass. Patient also has a UTI with pos nitrates and small leuk esterase. Plan Abdominal pain, possibly 2/2 to hepatic malignancy VS biliary obstruction - Surgery consult: Dr. Bright MRCP of abdomen ordered f/u tumor markers and work-up - CEA highly elevated; CA 19-9 elevated. Likely CholangioCA Perc drainage with IR - possible biopsy simultaneously - GI Consult: Dr. Garcia - CT Abd/Pelvis findings as above - Percutaneous Transhepatic Cholangiography - Patient being transferred to [facility] for procedure, then will come back to [place] Hyperbilirubinemia, likely 2/2 Biliary Obstruction due to Hepatic malignancy - As above - Retic count: 1.55; - Hepatitis panel: negative - AFP, IGG, KAUSHIK IFA, Hep BE Ag, Mitochondrial Ab, Smooth Muscle Ab UTI - Rocephin History of CAD s/p Stents - Daily ASA History of Hypertension - Patient is normotensive right now - Patient takes medication from [place] - will address if patient's blood pressure changes History of Diabetes - RISS Low - Accuchecks History of Hypothyroidism - 50 mcg IVP GI and DVT Prophylaxis - Protonix, Heparin Dispo: Patient getting biopsy and PTC at [facility] <Gómez Morales - Last Filed: 05/15/17 17:38> Objective - Vital Signs/Intake and Output Vital Signs (last 24 hours): Temp Pulse Resp BP Pulse Ox 98.4 F 68 20 119/72 96 05/15/17 06:00 05/15/17 06:00 05/15/17 06:00 05/15/17 06:00 05/15/17 06:00 Intake and Output: 05/15/17 05/15/17 06:59 18:59 Intake Total 1740 Output Total 1150 Balance 590 - Medications Medications: Current Medications Cholestyramine Resin (Questran) 4 gm PO DAILY [facility] Last Admin: 05/15/17 10:47 Dose: Not Given Dextrose/Sodium Chloride (Dextrose 5%/0.45% Ns 1000 Ml) 1,000 mls @ 100 mls/hr IV .Q10H [facility] Last Admin: 05/15/17 10:45 Dose: 100 mls/hr Insulin Human Regular (Humulin R Low) 0 units SC Q6H [facility] PRN Reason: Protocol Last Admin: 05/15/17 06:23 Dose: Not Given Levothyroxine Sodium (Synthroid) 50 mcg IVP DAILY [facility] Last Admin: 05/15/17 10:47 Dose: 50 mcg Pantoprazole Sodium (Protonix Inj) 40 mg IVP DAILY [facility] Last Admin: 05/15/17 10:48 Dose: 40 mg - Labs Labs: 05/15/17 06:45 05/15/17 07:00 PT 11.5 SECONDS (9.4-12.5) 05/14/17 05:28 INR 1.00 (0.93-1.08) 05/14/17 05:28 APTT 25.4 Seconds (25.1-36.5) 05/14/17 05:28 Attending/Attestation - Attestation I have personally seen and examined this patient.: Yes I have fully participated in the care of the patient.: Yes I have reviewed all pertinent clinical information, including history, physical exam and plan: Yes Notes (Text): 05/15/17 17:36 Attending note; Patient seen and examined with resident. Patient's son by the bedside. 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 Currently with obstructive jaundice. CT abdomen and pelvis showed dilated intra- ductal dilatation and liver mass and nodularity in the mesentery suggesting metastatic disease. MRCP is negative for CBD stone. 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 There is adjacent liver mass. GI and surgery evaluation appreciated. Plan for biliary stent and liver biopsy today by DR. Shankar. Patient will be transferred to [facility] for the procedure. Case discussed with oncology in detail. AFP is negative. CEA is elevated. CA 19-9 is elevated. Follow up biopsy results. The diagnosis and follow-up plan discussed with patient and patient's son in detail.
[2017-05-16] MEDS: Insulin Reg-LOW-Coverage SC SCH ×5 (03:02→22:01)
[2017-05-16 07:58] LABS: GRAN # 8.05 (1.4-6.5); GRAN % 82.9 % (50.0-68.0); HEMOGLOBIN 10.5 g/dL (14.0-18.0); LYMPH % 10.5 % (22.0-35.0); MEAN CELL VOLUME 81.4 fl (80.0-105.0); MEAN CORPUSCULAR HEMOGLOBIN 28.7 pg (25.0-35.0); MEAN CORPUSCULAR HGB CONC 35.2 g/dl (31.0-37.0); MEAN PLATELET VOLUME 10.4 fl (7.0-11.0); MONO # 0.6 (0.1-0.6); MONO % 6.6 % (1.0-6.0); RBC 3.66 10^6/uL (3.5-6.1); RED CELL DISTRIBUTION WIDTH 17.8 % (11.5-14.5); WHITE BLOOD COUNT 9.7 10^3/ul (4.5-11.0)
[2017-05-16 08:15] LABS: ALB/GLOB RATIO 0.9 (1.1-1.8); ALBUMIN 3.3 g/dL (3.0-4.8); ALT/SGPT 592 U/L (7-56); BILIRUBIN,DIRECT 18.6 mg/dL (0.0-0.4); BLOOD UREA NITROGEN 25 mg/dL (7-21); CALCIUM 9.2 mg/dL (8.4-10.5); GFR AFRICAN-AMERICAN > 60; GFR NON-AFRICAN AMERICAN > 60
[2017-05-16 08:23] LABS: AST/SGOT 880 U/L (17-59)
[2017-05-16] MEDS: Levothyroxine 100 mcg (0.1 mg) Inj IVP SCH (09:35)
[2017-05-16] MEDS: Cholestyramine 4 gm/Pkt UD PO SCH (09:35)
[2017-05-16] MEDS ORDERED: Morphine 4 mg/ml ISec IVP PRN (10:09)
[2017-05-16] MEDS: Sodium Chloride 0.9% 1,000 ML IV SCH (10:30)
--- NOTE | 2017-05-16 12:23 | CP.PCM.PN ---
Subjective - Date & Time of Evaluation Date of Evaluation: 05/16/17 Time of Evaluation: 12:18 - Subjective Subjective: Surgery: DR. Bright Patient reports some discomfort at tube insertion site otherwise no complaints. Objective - Vital Signs/Intake and Output Vital Signs (last 24 hours): Temp Pulse Resp BP Pulse Ox 98.6 F 77 20 124/73 97 05/16/17 07:59 05/16/17 07:59 05/16/17 07:59 05/16/17 07:59 05/16/17 07:59 - Medications Medications: Current Medications Cholestyramine Resin (Questran) 4 gm PO DAILY [facility] Last Admin: 05/16/17 09:35 Dose: 4 gm Docusate Sodium (Colace) 100 mg PO DAILY [facility] Sodium Chloride (Sodium Chloride 0.9%) 1,000 mls @ 50 mls/hr IV .Q20H [facility] Last Admin: 05/16/17 10:30 Dose: 50 mls/hr Insulin Human Regular (Humulin R Low) 0 units SC A[facility]S [facility] PRN Reason: Protocol Last Admin: 05/16/17 11:54 Dose: 2 units Levothyroxine Sodium (Synthroid) 100 mcg PO ACB [facility] Morphine Sulfate (Morphine) 1 mg IVP Q4H [facility]N PRN Reason: Pain, moderate (4-7) Ondansetron HCl (Zofran Inj) 4 mg IVP Q6H PRN PRN Reason: Nausea/Vomiting Pantoprazole Sodium (Protonix Ec Tab) 40 mg PO 0600 [facility] - Labs Labs: 05/16/17 07:50 05/16/17 07:50 PT 11.5 SECONDS (9.4-12.5) 05/14/17 05:28 INR 1.00 (0.93-1.08) 05/14/17 05:28 APTT 25.4 Seconds (25.1-36.5) 05/14/17 05:28 - Constitutional Appears: Cachectic, Chronically Ill - Head Exam Head Exam: ATRAUMATIC, NORMOCEPHALIC - Eye Exam Eye Exam: Scleral icterus - ENT Exam ENT Exam: Mucous Membranes Moist - Respiratory Exam Respiratory Exam: absent: Respiratory Distress - Cardiovascular Exam Cardiovascular Exam: REGULAR RHYTHM. absent: Tachycardia - GI/Abdominal Exam GI & Abdominal Exam: Distended, Soft. absent: Tenderness - Skin Skin Exam: absent: Normal Color Additional comments: Jaundice Assessment and Plan - Assessment and Plan (Free Text) Assessment: 72 y/o male with biliary obstruction 2/2 mass, concern for cholangiocarcinoma Plan: -s/p PTC with drain placement and biopsies -review of CT scan shows nodularity through mesentery concerning for peritoneal implants- poor surgical candidate -f/u final pathology -ok for diet -no surgical intervention -recommending heme/onc evaluation -will follow peripherally -d/w Dr. Deangelo Headley PGY3
--- NOTE | 2017-05-16 15:41 | CP.PCM.PN ---
<Leonardo Allen - Last Filed: 05/16/17 15:19> Subjective - Date & Time of Evaluation Date of Evaluation: 05/16/17 Time of Evaluation: 15:19 - Subjective Subjective: Medicine Progress Note: Patient seen and assessed at bedside. Patient had PTC drain and tissue biopsy done at [facility] yesterday afternoon without complication. Patient returned overnight and complained of nausea multiple times overnight with resolution noted with PRN nausea medication. Patient is without further complaints at this time and denies fevers, chills, headache, changes in his vision, chest pain, SOB, cough, abdominal pain, V/D/C, changes in urinary color/ frequency, dysuria, or any numbness/tingling/weakness of any extremity. Objective - Vital Signs/Intake and Output Vital Signs (last 24 hours): Temp Pulse Resp BP Pulse Ox 98.6 F 77 20 124/73 97 05/16/17 07:59 05/16/17 07:59 05/16/17 07:59 05/16/17 07:59 05/16/17 07:59 - Medications Medications: Current Medications Cholestyramine Resin (Questran) 4 gm PO DAILY [facility] Last Admin: 05/16/17 09:35 Dose: 4 gm Docusate Sodium (Colace) 100 mg PO DAILY [facility] Sodium Chloride (Sodium Chloride 0.9%) 1,000 mls @ 50 mls/hr IV .Q20H [facility] Last Admin: 05/16/17 10:30 Dose: 50 mls/hr Insulin Human Regular (Humulin R Low) 0 units SC ACHS [facility] PRN Reason: Protocol Last Admin: 05/16/17 11:54 Dose: 2 units Levothyroxine Sodium (Synthroid) 100 mcg PO ACB [facility] Morphine Sulfate (Morphine) 1 mg IVP Q4H PRN PRN Reason: Pain, moderate (4-7) Ondansetron HCl (Zofran Inj) 4 mg IVP Q6H PRN PRN Reason: Nausea/Vomiting Pantoprazole Sodium (Protonix Ec Tab) 40 mg PO 0600 [facility] - Labs Labs: 05/16/17 07:50 05/16/17 07:50 PT 11.5 SECONDS (9.4-12.5) 05/14/17 05:28 INR 1.00 (0.93-1.08) 05/14/17 05:28 APTT 25.4 Seconds (25.1-36.5) 05/14/17 05:28 - Constitutional Appears: No Acute Distress - Head Exam Head Exam: ATRAUMATIC, NORMOCEPHALIC - Eye Exam Eye Exam: EOMI, PERRL Pupil Exam: NORMAL ACCOMODATION, PERRL - ENT Exam ENT Exam: Mucous Membranes Moist - Neck Exam Neck Exam: Full ROM, Normal Inspection. absent: Lymphadenopathy, Tenderness - Respiratory Exam Respiratory Exam: Clear to Ausculation Bilateral, NORMAL BREATHING PATTERN. absent: Rales, Rhonchi, Wheezes - Cardiovascular Exam Cardiovascular Exam: REGULAR RHYTHM - GI/Abdominal Exam GI & Abdominal Exam: Soft, Normal Bowel Sounds. absent: Distended, Firm, Guarding, Rigid, Tenderness, Rebound Additional comments: Wound dressings clean, dry and intact; PTC drainage of approximately 100mls of hemorrhagic fluid - Extremities Exam Extremities Exam: Full ROM, Normal Capillary Refill, Normal Inspection. absent : Calf Tenderness, Joint Swelling, Pedal Edema, Tenderness - Back Exam Back Exam: NORMAL INSPECTION - Neurological Exam Neurological Exam: Alert, Awake, Oriented x3 - Psychiatric Exam Psychiatric exam: Normal Affect, Normal Mood - Skin Skin Exam: Dry, Intact, Warm. absent: Normal Color (Jaundice) Assessment and Plan - Assessment and Plan (Free Text) Assessment: 72 year old male with a past medical history significant for DM2, HTN, and HLD who presented with juandice. An MRI revealed a mass at the alfred hepatitis. 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 Patient s/p PTC and tissue biopsies at [facility] on . GI, Surgery and Heme/Onc were consulted. Plan: 1. Alfred Hepatitis Mass suspicious for Cholangiocarcinoma -MRCP showed severe intrahepatic ductal dilatation secondary to obstructing cholangiocarcinoma with adjacent hepatic mass at the level of the alfred hepatitis and a normal caliber CBD -CT Abdomen/Pelvis showed findings suggestive of obstructive malignant mass of alfred hepatitis with peritoneal metastasis -S/P PTC placement at [facility] on 05/15/2017 with tissue biopsies pending -CA19-9 elevated at 6510 -Viral and Autoimmune Hepatitis work up pending -Continue Questran -Continue Morphine PRN for pain control -Continue Zofran PRN for N/V -Continue Normal Saline at 50mls/hr -Will need to obtain CT Chest for complete staging -GI, Surgery, and Heme/Onc consulted, all recommendations appreciated 2. History of Hypothyroidism -Continue home Synthroid 3. History of DM2 -ISS-Low and Accuchecks ACHS -Carbohydrate Consistent Diet 4. History of Constipation -Continue Colace GI Prophylaxis: Protonix DVT Prophylaxis: SCD's Diet: Heart Healthy (2gm Sodium and Carbohydrate Consistent) Patient seen and case discussed with attending, Dr. Morales. <Gómez Morales - Last Filed: 05/17/17 14:02> Objective - Vital Signs/Intake and Output Vital Signs (last 24 hours): Temp Pulse Resp BP Pulse Ox 98.6 F 77 20 124/73 97 05/16/17 07:59 05/16/17 07:59 05/16/17 07:59 05/16/17 07:59 05/16/17 07:59 - Medications Medications: Current Medications Cholestyramine Resin (Questran) 4 gm PO DAILY [facility] Last Admin: 05/16/17 09:35 Dose: 4 gm Docusate Sodium (Colace) 100 mg PO DAILY [facility] Sodium Chloride (Sodium Chloride 0.9%) 1,000 mls @ 50 mls/hr IV .Q20H [facility] Last Admin: 05/16/17 10:30 Dose: 50 mls/hr Insulin Human Regular (Humulin R Low) 0 units SC ACHS NINA PRN Reason: Protocol Last Admin: 05/16/17 11:54 Dose: 2 units Levothyroxine Sodium (Synthroid) 100 mcg PO ACB [facility] Morphine Sulfate (Morphine) 1 mg IVP Q4H PRN PRN Reason: Pain, moderate (4-7) Ondansetron HCl (Zofran Inj) 4 mg IVP Q6H PRN PRN Reason: Nausea/Vomiting Pantoprazole Sodium (Protonix Ec Tab) 40 mg PO 0600 [facility] - Labs Labs: 05/16/17 07:50 05/16/17 07:50 PT 11.5 SECONDS (9.4-12.5) 05/14/17 05:28 INR 1.00 (0.93-1.08) 05/14/17 05:28 APTT 25.4 Seconds (25.1-36.5) 05/14/17 05:28 Attending/Attestation - Attestation I have personally seen and examined this patient.: Yes I have fully participated in the care of the patient.: Yes I have reviewed all pertinent clinical information, including history, physical exam and plan: Yes Notes (Text): 05/16/17 16:33 Attending note; Patient seen and examined with resident. Patient's son by the bedside. Patient is a 72 year old Ukrainian speaking male from [place] with past medical history significant for hypertension, diabetes, hypothyroidism 2/2 thyroidectomy , CAD s/p stent in 2011 with completed plavix, recently diagnosed liver problem in [place] presents [place] [facility] with abdominal pain. Currently with obstructive jaundice. CT abdomen and pelvis showed dilated intra- ductal dilatation and liver mass and nodularity in the mesentery suggesting metastatic disease. MRCP is negative for CBD stone. 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 There is adjacent liver mass. GI and surgery evaluation appreciated. s/p biliary stent and liver biopsy today by DR. Shankar. Elevated LFTs and bilirubin post procedure. Monitor closely. Continue to monitor biliary output. Abdominal pain; continue IV morphine. Advance liquid diet to soft diet as tolerated. Case discussed with oncology in detail. AFP is negative. CEA is elevated. CA 19-9 is elevated. Follow up biopsy results. The diagnosis and follow-up plan discussed with patient and patient's son in detail.
[2017-05-17] MEDS: Sodium Chloride 0.9% 1,000 ML IV SCH (05:59)
[2017-05-17] MEDS: Pantoprazole 40 mg EC Tab PO SCH (05:59)
[2017-05-17 07:20] LABS: BASO # 0.01 K/mm3 (0.0-2.0); BASO % 0.1 % (0.0-3.0); EOS # 0.1 (0.0-0.7); EOS % 0.5 % (1.5-5.0); GRAN # 7.44 (1.4-6.5); GRAN % 76.8 % (50.0-68.0); LYMPH # 1.1 (1.2-3.4); LYMPH % 10.9 % (22.0-35.0); MEAN CELL VOLUME 80.5 fl (80.0-105.0); MEAN CORPUSCULAR HEMOGLOBIN 28.8 pg (25.0-35.0); MEAN CORPUSCULAR HGB CONC 35.7 g/dl (31.0-37.0); MEAN PLATELET VOLUME 10.1 fl (7.0-11.0); MONO # 1.1 (0.1-0.6); MONO % 11.7 % (1.0-6.0); RBC 3.13 10^6/uL (3.5-6.1); RED CELL DISTRIBUTION WIDTH 17.6 % (11.5-14.5); WHITE BLOOD COUNT 9.7 10^3/ul (4.5-11.0)
[2017-05-17 07:48] LABS: ALB/GLOB RATIO 0.9 (1.1-1.8); ALBUMIN 2.8 g/dL (3.0-4.8); ALT/SGPT 595 U/L (7-56); AST/SGOT 634 U/L (17-59); BLOOD UREA NITROGEN 20 mg/dL (7-21); CALCIUM 8.4 mg/dL (8.4-10.5); GFR AFRICAN-AMERICAN > 60; GFR NON-AFRICAN AMERICAN > 60
[2017-05-17] MEDS: Insulin Reg-LOW-Coverage SC SCH ×4 (08:52→21:51)
[2017-05-17] MEDS: Cholestyramine 4 gm/Pkt UD PO SCH (09:33)
[2017-05-17] MEDS: Levothyroxine 100 MCG TAB PO SCH (09:34)
--- NOTE | 2017-05-17 10:54 | CP.PCM.PN ---
<Leonardo Allen - Last Filed: 05/17/17 10:51> Subjective - Date & Time of Evaluation Date of Evaluation: 05/17/17 Time of Evaluation: 10:51 - Subjective Subjective: Medicine Progress Note: Patient seen and assessed at bedside. No acute events overnight noted by patient or nursing staff. Patient reports that he is tolerating his diet well and is currently without abdominal pain or nausea. He does endorse that he has had only one BM since admission. 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 Patient is without further complaints at this time and denies fevers , chills, headache, changes in his vision, chest pain, SOB, cough, abdominal pain, N/V/D, changes in urinary color/frequency, dysuria, or any numbness/ tingling/weakness of any extremity. Objective - Vital Signs/Intake and Output Vital Signs (last 24 hours): Temp Pulse Resp BP Pulse Ox 98 F 98 H 19 116/75 95 05/17/17 06:00 05/17/17 06:00 05/17/17 06:00 05/17/17 06:00 05/17/17 06:00 Intake and Output: 05/17/17 05/17/17 06:59 18:59 Intake Total 520 Output Total 1020 Balance -500 - Medications Medications: Current Medications Cholestyramine Resin (Questran) 4 gm PO DAILY [facility] Last Admin: 05/17/17 09:33 Dose: 4 gm Docusate Sodium (Colace) 100 mg PO DAILY [facility] Last Admin: 05/17/17 09:33 Dose: 100 mg Sodium Chloride (Sodium Chloride 0.9%) 1,000 mls @ 50 mls/hr IV .Q20H [facility] Last Admin: 05/17/17 05:59 Dose: 50 mls/hr Insulin Human Regular (Humulin R Low) 0 units SC ACHS NINA PRN Reason: Protocol Last Admin: 05/17/17 08:52 Dose: 1 units Levothyroxine Sodium (Synthroid) 100 mcg PO ACB [facility] Last Admin: 05/17/17 09:34 Dose: 100 mcg Ondansetron HCl (Zofran Inj) 4 mg IVP Q6H PRN PRN Reason: Nausea/Vomiting Pantoprazole Sodium (Protonix Ec Tab) 40 mg PO 0600 [facility] Last Admin: 05/17/17 05:59 Dose: 40 mg - Labs Labs: 05/17/17 07:00 05/17/17 07:00 PT 11.5 SECONDS (9.4-12.5) 05/14/17 05:28 INR 1.00 (0.93-1.08) 05/14/17 05:28 APTT 25.4 Seconds (25.1-36.5) 05/14/17 05:28 - Constitutional Appears: No Acute Distress - Head Exam Head Exam: ATRAUMATIC, NORMOCEPHALIC - Eye Exam Eye Exam: EOMI, Scleral icterus. absent: Normal appearance Pupil Exam: NORMAL ACCOMODATION, PERRL - ENT Exam ENT Exam: Mucous Membranes Moist, Normal Exam - Neck Exam Neck Exam: Full ROM, Normal Inspection. absent: Lymphadenopathy, Tenderness - Respiratory Exam Respiratory Exam: Clear to Ausculation Bilateral, NORMAL BREATHING PATTERN. absent: Accessory Muscle Use, Rales, Rhonchi, Wheezes - Cardiovascular Exam Cardiovascular Exam: REGULAR RHYTHM, RRR, +S1, +S2. absent: Bradycardia, Tachycardia, Clicks, Diastolic murmur, Gallop, Irregular Rhythm, JVD, Rubs, +S4 , Murmur - GI/Abdominal Exam GI & Abdominal Exam: Soft, Normal Bowel Sounds. absent: Distended, Firm, Guarding, Rigid, Tenderness, Rebound Additional comments: PTC wound dressings clean, dry and intact; PTC drain with approximately 50- 100mls of hemorrhagic drainage - Extremities Exam Extremities Exam: Full ROM, Normal Capillary Refill, Normal Inspection. absent : Calf Tenderness, Joint Swelling, Pedal Edema, Tenderness - Back Exam Back Exam: NORMAL INSPECTION - Neurological Exam Neurological Exam: Alert, Awake, CN II-XII Intact, Normal Gait, Oriented x3 - Psychiatric Exam Psychiatric exam: Normal Affect, Normal Mood - Skin Skin Exam: Dry, Intact, Warm Additional comments: Jaundiced Assessment and Plan - Assessment and Plan (Free Text) Assessment: 72 year old male with a past medical history significant for DM2, HTN, and HLD who presented with juandice. An MRI revealed a mass at the alfred hepatitis. 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 Patient s/p PTC and tissue biopsies at [facility] on . GI, Surgery and Heme/Onc were consulted. Plan: 1. Alfred Hepatitis Mass suspicious for Cholangiocarcinoma -MRCP showed severe intrahepatic ductal dilatation secondary to obstructing cholangiocarcinoma with adjacent hepatic mass at the level of the alfred hepatitis and a normal caliber CBD -CT Abdomen/Pelvis showed findings suggestive of obstructive malignant mass of alfred hepatitis with peritoneal metastasis -S/P PTC placement at [facility] on 05/15/2017 with tissue biopsies pending -Viral and Autoimmune Hepatitis work up negative -CA19-9 elevated at 6510 -Liver function tests elevated but continue to trend downwards -Started Oxycodone 5mg PO Q6H PRN for pain control -Continue Questran -Continue Zofran PRN for N/V -Continue Normal Saline at 50mls/hr -Will need to obtain CT Chest for complete staging -GI, Surgery, and Heme/Onc consulted, all recommendations appreciated 2. History of Hypothyroidism -Continue home Synthroid 3. History of DM2 -ISS-Low and Accuchecks ACHS -Carbohydrate Consistent Diet 4. History of Constipation -Started Lactulose 10mg PO daily PRN -Continue Colace GI Prophylaxis: Protonix DVT Prophylaxis: SCD's Diet: Heart Healthy (2gm Sodium and Carbohydrate Consistent) with Glucerna supplementation (2 per day) Patient seen and case discussed with attending, Dr. Morales. <Gómez Morales - Last Filed: 05/17/17 14:05> Objective - Vital Signs/Intake and Output Vital Signs (last 24 hours): Temp Pulse Resp BP Pulse Ox 98 F 98 H 19 116/75 95 05/17/17 06:00 05/17/17 06:00 05/17/17 06:00 05/17/17 06:00 05/17/17 06:00 Intake and Output: 05/17/17 05/17/17 06:59 18:59 Intake Total 520 Output Total 1020 Balance -500 - Medications Medications: Current Medications Cholestyramine Resin (Questran) 4 gm PO DAILY [facility] Last Admin: 05/17/17 09:33 Dose: 4 gm Docusate Sodium (Colace) 100 mg PO DAILY [facility] Last Admin: 05/17/17 09:33 Dose: 100 mg Sodium Chloride (Sodium Chloride 0.9%) 1,000 mls @ 50 mls/hr IV .Q20H [facility] Last Admin: 05/17/17 05:59 Dose: 50 mls/hr Insulin Human Regular (Humulin R Low) 0 units SC ACHS NINA PRN Reason: Protocol Last Admin: 05/17/17 12:48 Dose: 1 units Lactulose (Enulose) 10 gm PO DAILY PRN PRN Reason: Constipation Levothyroxine Sodium (Synthroid) 100 mcg PO ACB [facility] Last Admin: 05/17/17 09:34 Dose: 100 mcg Ondansetron HCl (Zofran Inj) 4 mg IVP Q6H PRN PRN Reason: Nausea/Vomiting Oxycodone HCl (Oxycodone Immediate Release Tab) 5 mg PO Q6H PRN PRN Reason: Pain, severe (8-10) Pantoprazole Sodium (Protonix Ec Tab) 40 mg PO 0600 [facility] Last Admin: 05/17/17 05:59 Dose: 40 mg - Labs Labs: 05/17/17 07:00 05/17/17 07:00 PT 11.5 SECONDS (9.4-12.5) 05/14/17 05:28 INR 1.00 (0.93-1.08) 05/14/17 05:28 APTT 25.4 Seconds (25.1-36.5) 05/14/17 05:28 Attending/Attestation - Attestation I have personally seen and examined this patient.: Yes I have fully participated in the care of the patient.: Yes I have reviewed all pertinent clinical information, including history, physical exam and plan: Yes Notes (Text): 05/17/17 14:02 Attending note; Patient seen and examined with resident. Patient is a 72 year old [place]dean speaking male from [place] with past medical history significant for hypertension, diabetes, hypothyroidism 2/2 thyroidectomy , CAD s/p stent in 2011 with completed plavix, recently diagnosed liver problem in [place] presents to [facility] with abdominal pain. Currently with obstructive jaundice. CT abdomen and pelvis showed dilated intra- ductal dilatation and liver mass and nodularity in the mesentery suggesting metastatic disease. MRCP is negative for CBD stone. 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 There is adjacent liver mass. GI and surgery evaluation appreciated. s/p biliary stent and liver biopsy by DR. Shankar. LFT and bilirubin improving. Drop in hemoglobin. Monitor closely. Continue to monitor biliary output. Abdominal pain; continue IV morphine. Started on by mouth oxycodone. Continue soft diet as tolerated. Case discussed with oncology in detail. AFP is negative. CEA is elevated. CA 19-9 is elevated. Follow up biopsy results. Possible discharge tomorrow with close follow-up with [facility] clinic. The diagnosis and follow-up plan discussed with patient and patient's son in detail. 05/17/17 14:04
[2017-05-18] MEDS: Sodium Chloride 0.9% 1,000 ML IV SCH (01:48)
[2017-05-18] MEDS: oxyCODONE 5 mg Immediate Release Tab PO PRN (05:18)
[2017-05-18] MEDS: Pantoprazole 40 mg EC Tab PO SCH (05:18)
[2017-05-18] MEDS: Insulin Reg-LOW-Coverage SC SCH ×3 (08:14→16:35)
[2017-05-18] MEDS: Levothyroxine 100 MCG TAB PO SCH (09:42)
[2017-05-18] MEDS: Cholestyramine 4 gm/Pkt UD PO SCH (09:43)
--- NOTE | 2017-05-18 11:39 | CP.PCM.PN ---
<Jaime Schrader - Last Filed: 05/18/17 11:27> Subjective - Date & Time of Evaluation Date of Evaluation: 05/18/17 Time of Evaluation: 10:40 - Subjective Subjective: Subjective: Patient seen and examined at beside. No acute events overnight. States abdominal pain has resolved. Tolerating diet. Offers no new complaints at this time. 12 point ROS negative except as indicated in HPI Physical Examination: - Constitutional Appears: No Acute Distress - Head Exam Head Exam: ATRAUMATIC, NORMOCEPHALIC - Eye Exam Eye Exam: EOMI, Scleral icterus. - ENT Exam ENT Exam: Mucous Membranes Moist, Normal Exam - Respiratory Exam Respiratory Exam: Clear to Ausculation Bilateral, NORMAL BREATHING PATTERN. absent: Accessory Muscle Use, Rales, Rhonchi, Wheezes - Cardiovascular Exam Cardiovascular Exam: REGULAR RHYTHM, RRR, +S1, +S2. - GI/Abdominal Exam GI & Abdominal Exam: Soft, Normal Bowel Sounds. absent: Distended, Firm, Guarding, Rigid, Tenderness, Rebound Additional comments: PTC wound dressings clean, dry and intact; PTC drain with approximately 50- 100mls of richard colored drainage - Extremities Exam Extremities Exam: Full ROM, Normal Capillary Refill, Normal Inspection. absent : Calf Tenderness, Joint Swelling, Pedal Edema, Tenderness - Neurological Exam Neurological Exam: Alert, Awake, Oriented x3 - Psychiatric Exam Psychiatric exam: Normal Affect, Normal Mood - Skin Skin Exam: Dry, Warm,Jaundiced Assessment and Plan: 72 year old male with a past medical history significant for DM2, HTN, and HLD who presented with juandice. An MRI revealed a mass at the alfred hepatitis. 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 Patient s/p PTC and tissue biopsies at [facility] on . GI, Surgery and Heme/Onc were consulted Alfred Hepatitis Mass suspicious for Cholangiocarcinoma -MRCP showed severe intrahepatic ductal dilatation secondary to obstructing cholangiocarcinoma with adjacent hepatic mass at the level of the alfred hepatitis and a normal caliber CBD -CT Abdomen/Pelvis showed findings suggestive of obstructive malignant mass of alfred hepatitis with peritoneal metastasis -S/P PTC placement at [facility] on 05/15/2017 with tissue biopsies pending , will consider palliative care consult pending biopsy results -Viral and Autoimmune Hepatitis work up negative -CA19-9 elevated at 6510, AFP WNL and CEA elevated -Liver function tests elevated but continue to trend downwards -c/w Oxycodone 5mg PO Q6H PRN for pain control -Continue Questran -Continue Zofran PRN for N/V -Continue Normal Saline at 50mls/hr -GI, Surgery, and Heme/Onc consulted, all recommendations appreciated History of Hypothyroidism -Continue home Synthroid History of DM2 -ISS-Low and Accuchecks ACHS -Carbohydrate Consistent Diet History of Constipation -Started Lactulose 10mg PO daily PRN -Continue Colace Prophylaxis - GI Prophylaxis: Protonix - DVT Prophylaxis: SCD's Patient seen, case reviewed with, and plan approved by attending physician, Dr. Coombs. Objective - Vital Signs/Intake and Output Vital Signs (last 24 hours): Temp Pulse Resp BP Pulse Ox 99.2 F 78 20 123/71 98 05/18/17 07:45 05/18/17 07:45 05/18/17 07:45 05/18/17 07:45 05/18/17 07:45 Intake and Output: 05/18/17 05/18/17 06:59 18:59 Intake Total 480 Output Total 240 Balance 240 - Medications Medications: Current Medications Cholestyramine Resin (Questran) 4 gm PO DAILY [facility] Last Admin: 05/18/17 09:43 Dose: 4 gm Docusate Sodium (Colace) 100 mg PO DAILY [facility] Last Admin: 05/18/17 09:42 Dose: 100 mg Sodium Chloride (Sodium Chloride 0.9%) 1,000 mls @ 50 mls/hr IV .Q20H [facility] Last Admin: 05/18/17 01:48 Dose: 50 mls/hr Insulin Human Regular (Humulin R Low) 0 units SC ACHS [facility] PRN Reason: Protocol Last Admin: 05/18/17 08:14 Dose: 1 units Lactulose (Enulose) 10 gm PO DAILY PRN PRN Reason: Constipation Levothyroxine Sodium (Synthroid) 100 mcg PO ACB [facility] Last Admin: 05/18/17 09:42 Dose: 100 mcg Ondansetron HCl (Zofran Inj) 4 mg IVP Q6H PRN PRN Reason: Nausea/Vomiting Oxycodone HCl (Oxycodone Immediate Release Tab) 5 mg PO Q6H PRN PRN Reason: Pain, severe (8-10) Last Admin: 05/18/17 05:18 Dose: 5 mg Pantoprazole Sodium (Protonix Ec Tab) 40 mg PO 0600 [facility] Last Admin: 05/18/17 05:18 Dose: 40 mg - Labs Labs: 05/17/17 07:00 05/17/17 07:00 PT 11.5 SECONDS (9.4-12.5) 05/14/17 05:28 INR 1.00 (0.93-1.08) 05/14/17 05:28 APTT 25.4 Seconds (25.1-36.5) 05/14/17 05:28 <Osvaldo Coombs - Last Filed: 05/18/17 17:29> Objective - Vital Signs/Intake and Output Vital Signs (last 24 hours): Temp Pulse Resp BP Pulse Ox 99.2 F 78 20 123/71 98 05/18/17 07:45 05/18/17 07:45 05/18/17 07:45 05/18/17 07:45 05/18/17 07:45 Intake and Output: 05/18/17 05/18/17 06:59 18:59 Intake Total 480 600 Output Total 240 Balance 240 600 - Medications Medications: Current Medications Cholestyramine Resin (Questran) 4 gm PO DAILY [facility] Last Admin: 05/18/17 09:43 Dose: 4 gm Docusate Sodium (Colace) 100 mg PO DAILY [facility] Last Admin: 05/18/17 09:42 Dose: 100 mg Sodium Chloride (Sodium Chloride 0.9%) 1,000 mls @ 50 mls/hr IV .Q20H [facility] Last Admin: 05/18/17 01:48 Dose: 50 mls/hr Insulin Human Regular (Humulin R Low) 0 units SC ACHS [facility] PRN Reason: Protocol Last Admin: 05/18/17 11:30 Dose: Not Given Lactulose (Enulose) 10 gm PO DAILY PRN PRN Reason: Constipation Last Admin: 05/18/17 15:19 Dose: 10 gm Levothyroxine Sodium (Synthroid) 100 mcg PO ACB [facility] Last Admin: 05/18/17 09:42 Dose: 100 mcg Ondansetron HCl (Zofran Inj) 4 mg IVP Q6H PRN PRN Reason: Nausea/Vomiting Oxycodone HCl (Oxycodone Immediate Release Tab) 5 mg PO Q6H PRN PRN Reason: Pain, severe (8-10) Last Admin: 05/18/17 05:18 Dose: 5 mg Pantoprazole Sodium (Protonix Ec Tab) 40 mg PO 0600 [facility] Last Admin: 05/18/17 05:18 Dose: 40 mg - Labs Labs: 05/17/17 07:00 05/17/17 07:00 PT 11.5 SECONDS (9.4-12.5) 05/14/17 05:28 INR 1.00 (0.93-1.08) 05/14/17 05:28 APTT 25.4 Seconds (25.1-36.5) 05/14/17 05:28 Attending/Attestation - Attestation I have personally seen and examined this patient.: Yes I have fully participated in the care of the patient.: Yes I have reviewed all pertinent clinical information, including history, physical exam and plan: Yes Notes (Text): I have seen and examined the patient at bedside. Agree with the above note with the following additions/ exceptions: Briefly this is 72 year old Malay speaking male from [place] with past medical history significant for hypertension, DM-2, hypothyroidism 2/2 thyroidectomy, CAD s/p stent in 2011 with completed plavix, recently diagnosed liver problem in [place] presents to [facility] with abdominal pain, obstructive jaundice, conjugate hyperbilirubinemia and transaminitis. CT abdomen and pelvis showed dilated intra-ductal dilatation and liver mass and nodularity in the mesentery suggesting metastatic disease. MRCP is negative for CBD stone. 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 There is adjacent liver mass. Patient is s/p biliary stent and liver biopsy by Dr. Shankar. LFT and bilirubin improving. Continue to monitor biliary output. Patient reports that abdominal pain has improved. Continue oxycodone. CEA and C19-9 elevated. AFP is negative. Follow up biopsy results. Possible discharge tomorrow. Upon discharge patient will follow up with Dr Pires. Dr Osvaldo Coombs
[2017-05-18] MEDS: POLYETHYLENE GLYCOL 3350 17 GM/Dose PACKET PO SCH (19:33)
[2017-05-19] MEDS: oxyCODONE 5 mg Immediate Release Tab PO PRN (00:11)
--- NOTE | 2017-05-19 04:52 | CP.PCM.PN ---
<Jaime Schrader - Last Filed: 05/19/17 09:36> Subjective - Date & Time of Evaluation Date of Evaluation: 05/19/17 Time of Evaluation: 08:50 - Subjective Subjective: Subjective: Patient seen and examined at beside. No acute events overnight. States abdominal pain has resolved. Tolerating diet. Ambulating without overt difficulty. Offers no new complaints at this time. 12 point ROS negative except as indicated in HPI Physical Examination: - Constitutional Appears: No Acute Distress - Head Exam Head Exam: ATRAUMATIC, NORMOCEPHALIC - Eye Exam Eye Exam: EOMI, Scleral icterus. - ENT Exam ENT Exam: Mucous Membranes Moist, Normal Exam - Respiratory Exam Respiratory Exam: Clear to Ausculation Bilateral, NORMAL BREATHING PATTERN. absent: Accessory Muscle Use, Rales, Rhonchi, Wheezes - Cardiovascular Exam Cardiovascular Exam: REGULAR RHYTHM, RRR, +S1, +S2. - GI/Abdominal Exam GI & Abdominal Exam: Soft, Normal Bowel Sounds. absent: Distended, Firm, Guarding, Rigid, Tenderness, Rebound Additional comments: PTC wound dressings clean, dry and intact; PTC drain with approximately 50- 100mls of richard colored drainage - Extremities Exam Extremities Exam: Full ROM, Normal Capillary Refill, Normal Inspection. absent : Calf Tenderness, Joint Swelling, Pedal Edema, Tenderness - Neurological Exam Neurological Exam: Alert, Awake, Oriented x3 - Psychiatric Exam Psychiatric exam: Normal Affect, Normal Mood - Skin Skin Exam: Dry, Warm,Jaundiced Assessment and Plan: 72 year old male with a past medical history significant for DM2, HTN, and HLD who presented with juandice. An MRI revealed a mass at the alfred hepatitis. 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 Patient s/p PTC and tissue biopsies at [facility] on . GI, Surgery and Heme/Onc were consulted Anemia - Hemoglobin reviewed, trended, and appreciated- downtrending - Iron, TIBC, ferritin - B12 and folate - Type and screen Alfred Hepatitis Mass suspicious for Cholangiocarcinoma -MRCP showed severe intrahepatic ductal dilatation secondary to obstructing cholangiocarcinoma with adjacent hepatic mass at the level of the alfred hepatitis and a normal caliber CBD -CT Abdomen/Pelvis showed findings suggestive of obstructive malignant mass of alfred hepatitis with peritoneal metastasis -S/P PTC placement at [facility] on 05/15/2017 with tissue biopsies pending , will consider palliative care consult pending biopsy results -Viral and Autoimmune Hepatitis work up negative -CA19-9 elevated at 6510, AFP WNL and CEA elevated -Liver function tests elevated but continue to trend downwards -c/w Oxycodone 5mg PO Q6H PRN for pain control -Continue Questran -Continue Zofran PRN for N/V -Continue Normal Saline at 50mls/hr -GI, Surgery, and Heme/Onc consulted, all recommendations appreciated -awaiting official path report History of Hypothyroidism -Continue home Synthroid History of DM2 -ISS-Low and Accuchecks ACHS -Carbohydrate Consistent Diet History of Constipation -Started Lactulose 10mg PO daily PRN -Continue Colace Prophylaxis - GI Prophylaxis: Protonix - DVT Prophylaxis: SCD's Patient seen, case reviewed with, and plan approved by attending physician, Dr. Coombs. Objective - Vital Signs/Intake and Output Vital Signs (last 24 hours): Temp Pulse Resp BP Pulse Ox 99.6 F 81 20 115/73 97 05/18/17 14:00 05/18/17 14:00 05/18/17 14:00 05/18/17 14:00 05/18/17 14:00 Intake and Output: 05/18/17 05/19/17 18:59 06:59 Intake Total 600 Balance 600 - Medications Medications: Current Medications Cholestyramine Resin (Questran) 4 gm PO DAILY [facility] Last Admin: 05/18/17 09:43 Dose: 4 gm Docusate Sodium (Colace) 100 mg PO DAILY [facility] Last Admin: 05/18/17 09:42 Dose: 100 mg Sodium Chloride (Sodium Chloride 0.9%) 1,000 mls @ 50 mls/hr IV .Q20H [facility] Last Admin: 05/18/17 01:48 Dose: 50 mls/hr Insulin Human Regular (Humulin R Low) 0 units SC ACHS [facility] PRN Reason: Protocol Last Admin: 05/18/17 16:35 Dose: Not Given Lactulose (Enulose) 10 gm PO DAILY PRN PRN Reason: Constipation Last Admin: 05/18/17 15:19 Dose: 10 gm Levothyroxine Sodium (Synthroid) 100 mcg PO ACB [facility] Last Admin: 05/18/17 09:42 Dose: 100 mcg Ondansetron HCl (Zofran Inj) 4 mg IVP Q6H PRN PRN Reason: Nausea/Vomiting Oxycodone HCl (Oxycodone Immediate Release Tab) 5 mg PO Q6H PRN PRN Reason: Pain, severe (8-10) Last Admin: 05/19/17 00:11 Dose: 5 mg Pantoprazole Sodium (Protonix Ec Tab) 40 mg PO 0600 [facility] Last Admin: 05/18/17 05:18 Dose: 40 mg Polyethylene Glycol (Miralax) 17 gm PO BID [facility] Last Admin: 05/18/17 19:33 Dose: 17 gm - Labs Labs: 05/17/17 07:00 05/17/17 07:00 PT 11.5 SECONDS (9.4-12.5) 05/14/17 05:28 INR 1.00 (0.93-1.08) 05/14/17 05:28 APTT 25.4 Seconds (25.1-36.5) 05/14/17 05:28 <Osvaldo Coombs - Last Filed: 05/20/17 17:33> Objective - Vital Signs/Intake and Output Vital Signs (last 24 hours): Temp Pulse Resp BP Pulse Ox 98.6 F 72 14 128/77 95 05/20/17 15:23 05/20/17 15:23 05/20/17 15:23 05/20/17 15:23 05/20/17 14:00 Intake and Output: 05/20/17 05/20/17 06:59 18:59 Intake Total 360 1075 Balance 360 1075 - Medications Medications: Current Medications Cholestyramine Resin (Questran) 4 gm PO DAILY [facility] Last Admin: 05/20/17 09:42 Dose: 4 gm Docusate Sodium (Colace) 100 mg PO DAILY [facility] Last Admin: 05/20/17 09:42 Dose: 100 mg Sodium Chloride (Sodium Chloride 0.9%) 1,000 mls @ 50 mls/hr IV .Q20H [facility] Last Admin: 05/18/17 01:48 Dose: 50 mls/hr Insulin Human Regular (Humulin R Low) 0 units SC ACHS [facility] PRN Reason: Protocol Last Admin: 05/20/17 11:50 Dose: 1 units Lactulose (Enulose) 10 gm PO DAILY PRN PRN Reason: Constipation Last Admin: 05/18/17 15:19 Dose: 10 gm Levothyroxine Sodium (Synthroid) 100 mcg PO ACB [facility] Last Admin: 05/20/17 08:18 Dose: 100 mcg Ondansetron HCl (Zofran Inj) 4 mg IVP Q6H PRN PRN Reason: Nausea/Vomiting Oxycodone HCl (Oxycodone Immediate Release Tab) 5 mg PO Q6H PRN PRN Reason: Pain, severe (8-10) Last Admin: 05/20/17 09:42 Dose: 5 mg Pantoprazole Sodium (Protonix Ec Tab) 40 mg PO 0600 [facility] Last Admin: 05/20/17 05:29 Dose: 40 mg Polyethylene Glycol (Miralax) 17 gm PO BID [facility] Last Admin: 05/20/17 09:42 Dose: 17 gm - Labs Labs: 05/20/17 06:45 05/20/17 06:45 PT 11.5 SECONDS (9.4-12.5) 05/14/17 05:28 INR 1.00 (0.93-1.08) 05/14/17 05:28 APTT 25.4 Seconds (25.1-36.5) 05/14/17 05:28 Attending/Attestation - Attestation I have personally seen and examined this patient.: Yes I have fully participated in the care of the patient.: Yes I have reviewed all pertinent clinical information, including history, physical exam and plan: Yes Notes (Text): I have seen and examined the patient at bedside. Agree with the above note with the following additions/ exceptions: Briefly this is 72 year old [place] speaking male from [place] with past medical history significant for hypertension, DM-2, hypothyroidism 2/2 thyroidectomy, CAD s/p stent in 2011 with completed plavix, recently diagnosed liver problem in [place] presents to [facility] with abdominal pain, obstructive jaundice, conjugate hyperbilirubinemia and transaminitis. CT abdomen and pelvis showed dilated intrahepatic-ductal dilatation and liver mass and nodularity in the mesentery suggesting metastatic disease. MRCP is negative for CBD stone. 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 There is adjacent liver mass. Patient is s/p biliary stent and liver biopsy by Dr. Shankar. LFT and bilirubin improving. Continue to monitor biliary output. Patient reports that abdominal pain has improved. CEA and C19-9 elevated. AFP is negative. Follow up biopsy results. Hemoglobin continues to drop. There is no obvious blood loss. Will do anemia work up. Possible discharge tomorrow. Upon discharge patient will follow up with Dr Pires. Dr Osvaldo Coombs
[2017-05-19] MEDS: Pantoprazole 40 mg EC Tab PO SCH (06:15)
[2017-05-19 08:01] LABS: BASO # 0.01 K/mm3 (0.0-2.0); BASO % 0.1 % (0.0-3.0); EOS # 0.2 (0.0-0.7); GRAN # 5.36 (1.4-6.5); GRAN % 72.7 % (50.0-68.0); HEMOGLOBIN 8.2 g/dL (14.0-18.0); LYMPH % 13.7 % (22.0-35.0); MEAN CELL VOLUME 82.3 fl (80.0-105.0); MEAN CORPUSCULAR HGB CONC 35.2 g/dl (31.0-37.0); MEAN PLATELET VOLUME 9.3 fl (7.0-11.0); MONO # 0.9 (0.1-0.6); MONO % 11.5 % (1.0-6.0); RBC 2.83 10^6/uL (3.5-6.1); RED CELL DISTRIBUTION WIDTH 18.1 % (11.5-14.5); WHITE BLOOD COUNT 7.4 10^3/ul (4.5-11.0)
[2017-05-19] MEDS: Insulin Reg-LOW-Coverage SC SCH ×3 (08:05→17:07)
[2017-05-19] MEDS: Levothyroxine 100 MCG TAB PO SCH (08:07)
[2017-05-19 08:14] LABS: ALB/GLOB RATIO 0.9 (1.1-1.8); ALBUMIN 2.8 g/dL (3.0-4.8); ALT/SGPT 269 U/L (7-56); AST/SGOT 125 U/L (17-59); BLOOD UREA NITROGEN 19 mg/dL (7-21); CALCIUM 8.3 mg/dL (8.4-10.5); GFR AFRICAN-AMERICAN > 60; GFR NON-AFRICAN AMERICAN > 60
[2017-05-19] MEDS: Cholestyramine 4 gm/Pkt UD PO SCH (09:28)
[2017-05-19] MEDS: POLYETHYLENE GLYCOL 3350 17 GM/Dose PACKET PO SCH ×2 (09:28→17:04)
[2017-05-19 10:40] LABS: IRON 22 ug/dL (45-180)
[2017-05-19 10:50] LABS: % IRON SATURATION 8 % (20-55); TOTAL IRON BINDING CAPACITY 277 ug/dL (261-462)
[2017-05-19 17:29] LABS: FOLATE 13.2 ng/mL
[2017-05-20] MEDS: Pantoprazole 40 mg EC Tab PO SCH (05:29)
[2017-05-20 07:23] LABS: BASO # 0.01 K/mm3 (0.0-2.0); BASO % 0.1 % (0.0-3.0); EOS # 0.1 (0.0-0.7); EOS % 1.5 % (1.5-5.0); GRAN # 5.4 (1.4-6.5); GRAN % 71.9 % (50.0-68.0); HEMOGLOBIN 7.8 g/dL (14.0-18.0); LYMPH % 12.9 % (22.0-35.0); MEAN CELL VOLUME 83.2 fl (80.0-105.0); MEAN CORPUSCULAR HEMOGLOBIN 29.1 pg (25.0-35.0); MEAN PLATELET VOLUME 10.5 fl (7.0-11.0); MONO % 13.6 % (1.0-6.0); RBC 2.68 10^6/uL (3.5-6.1); RED CELL DISTRIBUTION WIDTH 18.8 % (11.5-14.5); WHITE BLOOD COUNT 7.5 10^3/ul (4.5-11.0)
[2017-05-20 07:56] LABS: ALB/GLOB RATIO 0.8 (1.1-1.8); ALBUMIN 2.6 g/dL (3.0-4.8); ALT/SGPT 197 U/L (7-56); AST/SGOT 83 U/L (17-59); BLOOD UREA NITROGEN 17 mg/dL (7-21); CALCIUM 8.1 mg/dL (8.4-10.5); GFR AFRICAN-AMERICAN > 60; GFR NON-AFRICAN AMERICAN > 60
[2017-05-20] MEDS: Levothyroxine 100 MCG TAB PO SCH (08:18)
[2017-05-20] MEDS: Insulin Reg-LOW-Coverage SC SCH ×3 (09:36→17:56)
[2017-05-20] MEDS: oxyCODONE 5 mg Immediate Release Tab PO PRN (09:42)
[2017-05-20] MEDS: Cholestyramine 4 gm/Pkt UD PO SCH (09:42)
[2017-05-20] MEDS: POLYETHYLENE GLYCOL 3350 17 GM/Dose PACKET PO SCH ×2 (09:42→18:00)
--- NOTE | 2017-05-20 12:38 | CP.PCM.PN ---
<Jaime Schrader - Last Filed: 05/20/17 12:14> Subjective - Date & Time of Evaluation Date of Evaluation: 05/20/17 Time of Evaluation: 09:45 - Subjective Subjective: Subjective: Patient seen and examined at beside. No acute events overnight. Tolerating diet. Ambulating without overt difficulty. Offers no new complaints at this time. Spoke with son at beside. All questions were addressed. 12 point ROS negative except as indicated in HPI Physical Examination: - Constitutional Appears: No Acute Distress - Head Exam Head Exam: ATRAUMATIC, NORMOCEPHALIC - Eye Exam Eye Exam: EOMI, Scleral icterus. - ENT Exam ENT Exam: Mucous Membranes Moist, Normal Exam - Respiratory Exam Respiratory Exam: Clear to Ausculation Bilateral, NORMAL BREATHING PATTERN. absent: Accessory Muscle Use, Rales, Rhonchi, Wheezes - Cardiovascular Exam Cardiovascular Exam: REGULAR RHYTHM, RRR, +S1, +S2. - GI/Abdominal Exam GI & Abdominal Exam: Soft, Normal Bowel Sounds. absent: Distended, Firm, Guarding, Rigid, Tenderness, Rebound Additional comments: PTC wound dressings clean, dry and intact; PTC drain with approximately 50- 100mls of richard colored drainage - Extremities Exam Extremities Exam: Full ROM, Normal Capillary Refill, Normal Inspection. absent : Calf Tenderness, Joint Swelling, Pedal Edema, Tenderness - Neurological Exam Neurological Exam: Alert, Awake, Oriented x3 - Psychiatric Exam Psychiatric exam: Normal Affect, Normal Mood - Skin Skin Exam: Dry, Warm,Jaundiced Assessment and Plan: 72 year old male with a past medical history significant for DM2, HTN, and HLD who presented with [facility]. An MRI revealed a mass at the alfred hepatitis. 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 Patient s/p PTC and tissue biopsies at [facility] on . GI, Surgery and Heme/Onc were consulted Anemia - Hemoglobin reviewed, trended, and appreciated- downtrending - Iron, TIBC, ferritin reviewed- Iron supplementation started - Type and screen- transfusing 2 units pRBCs, repeat CBC 4 hours after 2nd unit completed Alfred Hepatitis Mass suspicious for Cholangiocarcinoma -MRCP showed severe intrahepatic ductal dilatation secondary to obstructing cholangiocarcinoma with adjacent hepatic mass at the level of the alfred hepatitis and a normal caliber CBD -CT Abdomen/Pelvis showed findings suggestive of obstructive malignant mass of alfred hepatitis with peritoneal metastasis -S/P PTC placement at [facility] on 05/15/2017 with tissue biopsies pending , will consider palliative care consult pending biopsy results -Viral and Autoimmune Hepatitis work up negative -CA19-9 elevated at 6510, AFP WNL and CEA elevated -Liver function tests elevated but continue to trend downwards -c/w Oxycodone 5mg PO Q6H PRN for pain control -Continue Questran -Continue Zofran PRN for N/V -Continue Normal Saline at 50mls/hr -GI, Surgery, and Heme/Onc consulted,- no acute intervention at this time, follow up in outpatient setting -awaiting official path report History of Hypothyroidism -Continue home Synthroid History of DM2 -ISS-Low and Accuchecks ACHS -Carbohydrate Consistent Diet History of Constipation -Started Lactulose 10mg PO daily PRN -Continue Colace Prophylaxis - GI Prophylaxis: Protonix - DVT Prophylaxis: SCD's Patient seen, case reviewed with, and plan approved by attending physician, Dr. Coombs. Objective - Vital Signs/Intake and Output Vital Signs (last 24 hours): Temp Pulse Resp BP Pulse Ox 98.1 F 76 20 120/80 95 05/20/17 06:00 05/20/17 06:00 05/20/17 06:00 05/20/17 06:00 05/20/17 06:00 Intake and Output: 05/20/17 05/20/17 06:59 18:59 Intake Total 360 Balance 360 - Medications Medications: Current Medications Cholestyramine Resin (Questran) 4 gm PO DAILY [facility] Last Admin: 05/20/17 09:42 Dose: 4 gm Docusate Sodium (Colace) 100 mg PO DAILY [facility] Last Admin: 05/20/17 09:42 Dose: 100 mg Sodium Chloride (Sodium Chloride 0.9%) 1,000 mls @ 50 mls/hr IV .Q20H [facility] Last Admin: 05/18/17 01:48 Dose: 50 mls/hr Insulin Human Regular (Humulin R Low) 0 units SC ACHS [facility] PRN Reason: Protocol Last Admin: 05/20/17 11:50 Dose: 1 units Lactulose (Enulose) 10 gm PO DAILY PRN PRN Reason: Constipation Last Admin: 05/18/17 15:19 Dose: 10 gm Levothyroxine Sodium (Synthroid) 100 mcg PO ACB [facility] Last Admin: 05/20/17 08:18 Dose: 100 mcg Ondansetron HCl (Zofran Inj) 4 mg IVP Q6H PRN PRN Reason: Nausea/Vomiting Oxycodone HCl (Oxycodone Immediate Release Tab) 5 mg PO Q6H PRN PRN Reason: Pain, severe (8-10) Last Admin: 05/20/17 09:42 Dose: 5 mg Pantoprazole Sodium (Protonix Ec Tab) 40 mg PO 0600 [facility] Last Admin: 05/20/17 05:29 Dose: 40 mg Polyethylene Glycol (Miralax) 17 gm PO BID [facility] Last Admin: 05/20/17 09:42 Dose: 17 gm - Labs Labs: 05/20/17 06:45 05/20/17 06:45 PT 11.5 SECONDS (9.4-12.5) 05/14/17 05:28 INR 1.00 (0.93-1.08) 05/14/17 05:28 APTT 25.4 Seconds (25.1-36.5) 05/14/17 05:28 <Osvaldo Coombs B - Last Filed: 05/21/17 13:14> Objective - Vital Signs/Intake and Output Vital Signs (last 24 hours): Temp Pulse Resp BP Pulse Ox 98.6 F 72 14 128/77 95 05/20/17 15:23 05/20/17 15:23 05/20/17 15:23 05/20/17 15:23 05/20/17 14:00 Intake and Output: 05/20/17 05/20/17 06:59 18:59 Intake Total 360 1075 Balance 360 1075 - Medications Medications: Current Medications Cholestyramine Resin (Questran) 4 gm PO DAILY [facility] Last Admin: 05/20/17 09:42 Dose: 4 gm Docusate Sodium (Colace) 100 mg PO DAILY [facility] Last Admin: 05/20/17 09:42 Dose: 100 mg Insulin Human Regular (Humulin R Low) 0 units SC ACHS [facility] PRN Reason: Protocol Last Admin: 05/20/17 11:50 Dose: 1 units Lactulose (Enulose) 10 gm PO DAILY PRN PRN Reason: Constipation Last Admin: 05/18/17 15:19 Dose: 10 gm Levothyroxine Sodium (Synthroid) 100 mcg PO ACB [facility] Last Admin: 05/20/17 08:18 Dose: 100 mcg Ondansetron HCl (Zofran Inj) 4 mg IVP Q6H PRN PRN Reason: Nausea/Vomiting Pantoprazole Sodium (Protonix Ec Tab) 40 mg PO 0600 [facility] Last Admin: 05/20/17 05:29 Dose: 40 mg Polyethylene Glycol (Miralax) 17 gm PO BID [facility] Last Admin: 05/20/17 09:42 Dose: 17 gm - Labs Labs: 05/20/17 06:45 05/20/17 06:45 PT 11.5 SECONDS (9.4-12.5) 05/14/17 05:28 INR 1.00 (0.93-1.08) 05/14/17 05:28 APTT 25.4 Seconds (25.1-36.5) 05/14/17 05:28 Attending/Attestation - Attestation I have personally seen and examined this patient.: Yes I have fully participated in the care of the patient.: Yes I have reviewed all pertinent clinical information, including history, physical exam and plan: Yes Notes (Text): I have seen and examined the patient at bedside. Agree with the above note with the following additions/ exceptions: Briefly this is 72 year old [place] speaking male from [place] with past medical history significant for hypertension, DM-2, hypothyroidism 2/2 thyroidectomy, CAD s/p stent in 2011 with completed plavix, recently diagnosed liver problem in [place] presents to [facility] with abdominal pain, obstructive jaundice, conjugate hyperbilirubinemia and transaminitis. CT abdomen and pelvis showed dilated intrahepatic-ductal dilatation and liver mass and nodularity in the mesentery suggesting metastatic disease. MRCP is negative for CBD stone. 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 There is adjacent liver mass. Patient is s/p biliary stent and liver biopsy by Dr. Shankar. LFT and bilirubin improving. Continue to monitor biliary output. Patient reports that abdominal pain has improved. CEA and C19-9 elevated. AFP is negative. Follow up biopsy results. Hemoglobin continues to drop. There is no obvious blood loss. Anemia work up pending. 2 units of prbc will be given. Upon discharge patient will follow up with Dr Pires. Dr Osvaldo Coombs
[2017-05-21 03:45] LABS: BASO # 0.02 K/mm3 (0.0-2.0); BASO % 0.3 % (0.0-3.0); EOS # 0.2 (0.0-0.7); EOS % 2.4 % (1.5-5.0); GRAN # 5.35 (1.4-6.5); GRAN % 68.1 % (50.0-68.0); LYMPH # 1.7 (1.2-3.4); LYMPH % 21.6 % (22.0-35.0); MEAN CORPUSCULAR HEMOGLOBIN 29.4 pg (25.0-35.0); MEAN CORPUSCULAR HGB CONC 35.4 g/dl (31.0-37.0); MEAN PLATELET VOLUME 9.8 fl (7.0-11.0); MONO # 0.6 (0.1-0.6); MONO % 7.6 % (1.0-6.0); RBC 3.47 10^6/uL (3.5-6.1); WHITE BLOOD COUNT 7.9 10^3/ul (4.5-11.0)
[2017-05-21] MEDS: Insulin Reg-LOW-Coverage SC SCH ×2 (03:54→12:04)
[2017-05-21 04:03] LABS: HEMOGLOBIN 10.2 g/dL (14.0-18.0)
[2017-05-21 04:47] LABS: ALB/GLOB RATIO 0.8 (1.1-1.8); ALBUMIN 2.6 g/dL (3.0-4.8); ALT/SGPT 154 U/L (7-56); AST/SGOT 62 U/L (17-59); BLOOD UREA NITROGEN 15 mg/dL (7-21); CALCIUM 8.4 mg/dL (8.4-10.5); GFR AFRICAN-AMERICAN > 60; GFR NON-AFRICAN AMERICAN > 60
--- NOTE | 2017-05-21 04:55 | CP.PCM.DIS ---
<Jaime Schrader - Last Filed: 05/21/17 16:00> Provider - Provider Date of Admission: 05/14/17 09:53 Attending physician: Osvaldo Coombs MD Primary care physician: NO PRIMARY CARE PROVIDER Time Spent in preparation of Discharge (in minutes): 45 Hospital Course - Lab Results Lab Results: Micro Results 05/14/17 11:35 Blood-Venous Blood Culture - Final NO GROWTH AFTER 5 DAYS 05/14/17 11:35 Blood-Venous Gram Stain - Final TEST NOT PERFORMED 05/14/17 11:00 Blood-Venous Blood Culture - Final NO GROWTH AFTER 5 DAYS 05/14/17 11:00 Blood-Venous Gram Stain - Final TEST NOT PERFORMED Most Recent Lab Values WBC 7.9 10^3/ul (4.5-11.0) 05/21/17 03:35 RBC 3.47 10^6/uL (3.5-6.1) L 05/21/17 03:35 Hgb 10.2 g/dL (14.0-18.0) L D 05/21/17 03:35 Hct 28.8 % (42.0-52.0) L 05/21/17 03:35 MCV 83.0 fl (80.0-105.0) 05/21/17 03:35 MCH 29.4 pg (25.0-35.0) 05/21/17 03:35 MCHC 35.4 g/dl (31.0-37.0) 05/21/17 03:35 RDW 18.0 % (11.5-14.5) H 05/21/17 03:35 Plt Count 308 10^3/uL (120.0-450.0) 05/21/17 03:35 MPV 9.8 fl (7.0-11.0) 05/21/17 03:35 Gran % 68.1 % (50.0-68.0) H 05/21/17 03:35 Lymph % (Auto) 21.6 % (22.0-35.0) L 05/21/17 03:35 Kane % (Auto) 7.6 % (1.0-6.0) H 05/21/17 03:35 Eos % (Auto) 2.4 % (1.5-5.0) 05/21/17 03:35 Baso % (Auto) 0.3 % (0.0-3.0) 05/21/17 03:35 Gran # 5.35 (1.4-6.5) 05/21/17 03:35 Lymph # (Auto) 1.7 (1.2-3.4) 05/21/17 03:35 Kane # (Auto) 0.6 (0.1-0.6) 05/21/17 03:35 Eos # (Auto) 0.2 (0.0-0.7) 05/21/17 03:35 Baso # (Auto) 0.02 K/mm3 (0.0-2.0) 05/21/17 03:35 Retic Count 1.55 % (0.5-1.5) H 05/15/17 06:45 PT 11.5 SECONDS (9.4-12.5) 05/14/17 05:28 INR 1.00 (0.93-1.08) 05/14/17 05:28 APTT 25.4 Seconds (25.1-36.5) 05/14/17 05:28 Sodium 138 mmol/L (132-148) 05/21/17 03:35 Potassium 4.1 mmol/L (3.6-5.0) 05/21/17 03:35 Chloride 105 mmol/L (98-107) 05/21/17 03:35 Carbon Dioxide 23 mmol/L (21-33) 05/21/17 03:35 Anion Gap 14 (10-20) 05/21/17 03:35 BUN 15 mg/dL (7-21) 05/21/17 03:35 Creatinine 0.8 mg/dl (0.8-1.5) 05/21/17 03:35 Est GFR ( Amer) > 60 05/21/17 03:35 Est GFR (Non-Af Amer) > 60 05/21/17 03:35 POC Glucose (mg/dL) 145 mg/dL (65-110) H 05/20/17 21:51 Random Glucose 138 mg/dL (70-110) H 05/21/17 03:35 Hemoglobin A1c 5.9 % (4.2-6.5) 05/19/17 06:45 Calcium 8.4 mg/dL (8.4-10.5) 05/21/17 03:35 Magnesium 2.4 mg/dL (1.7-2.2) H 05/14/17 05:00 Iron 22 ug/dL (45-180) L 05/19/17 10:00 TIBC 277 ug/dL (261-462) 05/19/17 10:00 % Saturation 8 % (20-55) L 05/19/17 10:00 Ferritin 335.0 ng/mL 05/19/17 09:50 Total Bilirubin 10.8 mg/dL (0.2-1.3) H 05/21/17 03:35 Direct Bilirubin 18.6 mg/dL (0.0-0.4) H 05/16/17 07:50 AST 62 U/L (17-59) H D 05/21/17 03:35 ALT 154 U/L (7-56) H 05/21/17 03:35 Alkaline Phosphatase 135 U/L (38-126) H 05/21/17 03:35 Ammonia < 9 umol/L (9-33) L 05/14/17 05:28 Total Protein 5.7 g/dL (5.8-8.3) L 05/21/17 03:35 Albumin 2.6 g/dL (3.0-4.8) L 05/21/17 03:35 Globulin 3.1 gm/dL 05/21/17 03:35 Albumin/Globulin Ratio 0.8 (1.1-1.8) L 05/21/17 03:35 Lipase 451 U/L (23-300) H 05/14/17 05:28 Alpha Fetoprotein < 0.8 ng/mL (0.0-7.5) 05/14/17 05:00 Carcinoembryonic Ag 7.4 ng/mL (0.0-3.0) H 05/15/17 06:45 CA 19-9 Antigen 6510 U/mL (0-37) H 05/15/17 06:45 Vitamin B12 985 pg/mL (239-931) H 05/19/17 09:50 Folate 13.2 ng/mL 05/19/17 09:50 Procalcitonin 0.34 NG/ML (0.19-0.49) 05/14/17 05:00 TSH 3rd Generation 1.59 mIU/mL (0.46-4.68) 05/14/17 11:53 Urine Color Yellow (YELLOW) 05/14/17 06:11 Urine Appearance Sl cloudy (CLEAR) 05/14/17 06:11 Urine pH 6.5 (4.7-8.0) 05/14/17 06:11 Ur Specific [place] 1.010 (1.005-1.035) 05/14/17 06:11 Urine Protein Trace mg/dL (<30 mg/dL) H 05/14/17 06:11 Urine Glucose (UA) Negative mg/dL (NEGATIVE) 05/14/17 06:11 Urine Ketones Negative mg/dL (NEGATIVE) 05/14/17 06:11 Urine Blood Negative (NEGATIVE) 05/14/17 06:11 Urine Nitrate Positive (NEGATIVE) H 05/14/17 06:11 Urine Bilirubin Large (NEGATIVE) H 05/14/17 06:11 Urine Urobilinogen 0.2 E.U./dL (<1 E.U./dL) 05/14/17 06:11 Ur Leukocyte Esterase Small Missy/uL (NEGATIVE) H 05/14/17 06:11 Urine RBC 0 - 2 /hpf (0-2) 05/14/17 06:11 Urine WBC 2 - 5 /hpf (0-6) 05/14/17 06:11 Ur Epithelial Cells 0 - 2 /hpf (0-5) 05/14/17 06:11 Urine Bacteria Many (NEG) 05/14/17 06:11 IgG 731.3 mg/dL (700.0-1600.0) 05/15/17 06:45 KAUSHIK Screen Negative (Negative) 05/15/17 06:45 KAUSHIK Titer TEST NOT PERFORMED 05/15/17 06:45 KAUSHIK Titer 2 TEST NOT PERFORMED 05/15/17 06:45 KAUSHIK Pattern TEST NOT PERFORMED 05/15/17 06:45 KAUSHIK Pattern 2 TEST NOT PERFORMED 05/15/17 06:45 Anti-Mitochondrial Ab Negative (Negative) 05/15/17 06:45 Smooth Muscle Ab Titer TEST NOT PERFORMED 05/15/17 06:45 Anti-Smooth Muscle Ab Negative (Negative) 05/15/17 06:45 Hepatitis A IgM Ab Negative (NEGATIVE) 05/15/17 06:45 Hep Bs Antigen Negative (NEGATIVE) 05/15/17 06:45 Hep B Core IgM Ab Negative (NEGATIVE) 05/15/17 06:45 Hepatitis Be Antigen Nonreactive (Nonreactive) 05/15/17 06:45 Hepatitis C Antibody Negative (NEGATIVE) 05/15/17 06:45 Blood Type B POSITIVE 05/19/17 10:10 Blood Type Confirm B POSITIVE 05/19/17 10:35 Antibody Screen Negative 05/19/17 10:10 Crossmatch See Detail 05/19/17 10:10 BBK History Checked No verified bt 05/19/17 10:10 - Hospital Course Hospital Course: Patient is a 72 year old male with a past medical history significant for DM2, HTN, and HLD who was admitted for evaluation and treatment of [facility]. With the use of physical examinations, lab work, and imaging the patient was diagnosed with and treated for cholangiocarcinoma along with the patients chronic medical conditions. During their hospital stay the patient was seen by gastroenterology (Dr. Dugan), surgery (Dr. Bright), and hematology/oncology ( Dr. Pires) and their recommendations were both appreciated and utilized in the care for this patient. During their hospital stay the patient underwent abdominal/pevlic CT, MRCP, and CXR which were reviewed, appreciated, and utilized in the management of the patients clinical course. Abdominal/pelvic CT revealed nodular airspace disease at the right lung base posteriorly, severe intrahepatic biliary dilatation, poorly defined mass in the right hepatic lobe bordering the falciform ligament concerning for malignancy, there is nodularity and induration throughout the mesentery which may reflect peritoneal implants, and narrowing of the main portal vein. MRCP revealed severe intrahepatic ductal dilatation with obstruction at the level of obstruction is in the region of the alfred hepatis most likely secondary to cholangiocarcinoma. 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 Patient is s/p PTC and tissue biopsies at [facility] on 05/15/17. Patient was treated with questran, lactulose, colace, synthroid amongst other empiric/ therapeutic medications. At this time the patient is medically stable for discharge. Patient understands and appreciates discharge plan. Patient instructed to follow up with primary care physicians and referrals within three to five days from discharge. Furthermore, the patient is instructed to take medications as prescribed and to return to emergency room for evaluation of intractable headache, fever, chills, dizziness, chest pain, shortness of breath , abdominal pain, nausea, vomiting, diarrhea, constipation, and urinary symptoms. This is a brief summary of the patients hospital course. Please see patient chart for full details. Discharge Exam - Head Exam Head Exam: ATRAUMATIC, NORMOCEPHALIC - Additional Findings Additional findings: - Constitutional Appears: No Acute Distress - Head Exam Head Exam: ATRAUMATIC, NORMOCEPHALIC - Eye Exam Eye Exam: EOMI, Scleral icterus. - ENT Exam ENT Exam: Mucous Membranes Moist, Normal Exam - Respiratory Exam Respiratory Exam: Clear to Ausculation Bilateral, NORMAL BREATHING PATTERN. absent: Accessory Muscle Use, Rales, Rhonchi, Wheezes - Cardiovascular Exam Cardiovascular Exam: REGULAR RHYTHM, RRR, +S1, +S2. - GI/Abdominal Exam GI & Abdominal Exam: Soft, Normal Bowel Sounds. absent: Distended, Firm, Guarding, Rigid, Tenderness, Rebound Additional comments: PTC wound dressings clean, dry and intact; PTC drain with richard colored drainage - Extremities Exam Extremities Exam: Full ROM, Normal Capillary Refill, Normal Inspection. absent : Calf Tenderness, Joint Swelling, Pedal Edema, Tenderness - Neurological Exam Neurological Exam: Alert, Awake, Oriented x3 - Psychiatric Exam Psychiatric exam: Normal Affect, Normal Mood - Skin Skin Exam: Dry, Warm,Jaundiced Discharge Plan - Discharge Medications Prescriptions: Cholestyramine [Questran] 4 gm PO DAILY #14 packet Ciprofloxacin [Cipro] 500 mg PO Q12 7 Days tab Docusate [Colace] 100 mg PO DAILY PRN #14 cap PRN Reason: Constipation Ferrous Sulfate [Feosol] 325 mg PO DAILY #14 tab Lactulose [Enulose] 10 gm PO DAILY PRN #14 udc PRN Reason: Constipation - Follow Up Plan Condition: FAIR Disposition: HOME/ ROUTINE Instructions: Liver Cancer, High Blood Pressure in Adults, Hypokalemia, Anemia of Chronic Disease (DC) Additional Instructions: Patient Instructions: Take medications as prescribed. Follow up with PMD and referrals within three to five days from discharge. Return to the emergency room for evaluation of intractable headache, fever, chills, dizziness, chest pain, shortness of breath, abdominal pain, nausea, vomiting, diarrhea, constipation, and urinary symptoms. Referrals: Rahul Oreilly MD [Medical Doctor] - Michael Headley MD [Staff Provider] - PCP,NO [Primary Care Provider] - <Osvaldo Coombs B - Last Filed: 05/21/17 17:22> Provider - Provider Date of Admission: 05/14/17 09:53 Attending physician: Osvaldo Coombs MD Primary care physician: OTTO PRIMARY CARE PROVIDER Hospital Course - Lab Results Lab Results: Micro Results 05/14/17 11:35 Blood-Venous Blood Culture - Final NO GROWTH AFTER 5 DAYS 05/14/17 11:35 Blood-Venous Gram Stain - Final TEST NOT PERFORMED 05/14/17 11:00 Blood-Venous Blood Culture - Final NO GROWTH AFTER 5 DAYS 05/14/17 11:00 Blood-Venous Gram Stain - Final TEST NOT PERFORMED Most Recent Lab Values WBC 7.9 10^3/ul (4.5-11.0) 05/21/17 03:35 RBC 3.47 10^6/uL (3.5-6.1) L 05/21/17 03:35 Hgb 10.2 g/dL (14.0-18.0) L D 05/21/17 03:35 Hct 28.8 % (42.0-52.0) L 05/21/17 03:35 MCV 83.0 fl (80.0-105.0) 05/21/17 03:35 MCH 29.4 pg (25.0-35.0) 05/21/17 03:35 MCHC 35.4 g/dl (31.0-37.0) 05/21/17 03:35 RDW 18.0 % (11.5-14.5) H 05/21/17 03:35 Plt Count 308 10^3/uL (120.0-450.0) 05/21/17 03:35 MPV 9.8 fl (7.0-11.0) 05/21/17 03:35 Gran % 68.1 % (50.0-68.0) H 05/21/17 03:35 Lymph % (Auto) 21.6 % (22.0-35.0) L 05/21/17 03:35 Kane % (Auto) 7.6 % (1.0-6.0) H 05/21/17 03:35 Eos % (Auto) 2.4 % (1.5-5.0) 05/21/17 03:35 Baso % (Auto) 0.3 % (0.0-3.0) 05/21/17 03:35 Gran # 5.35 (1.4-6.5) 05/21/17 03:35 Lymph # (Auto) 1.7 (1.2-3.4) 05/21/17 03:35 Kane # (Auto) 0.6 (0.1-0.6) 05/21/17 03:35 Eos # (Auto) 0.2 (0.0-0.7) 05/21/17 03:35 Baso # (Auto) 0.02 K/mm3 (0.0-2.0) 05/21/17 03:35 Retic Count 1.55 % (0.5-1.5) H 05/15/17 06:45 PT 11.5 SECONDS (9.4-12.5) 05/14/17 05:28 INR 1.00 (0.93-1.08) 05/14/17 05:28 APTT 25.4 Seconds (25.1-36.5) 05/14/17 05:28 Sodium 138 mmol/L (132-148) 05/21/17 03:35 Potassium 4.1 mmol/L (3.6-5.0) 05/21/17 03:35 Chloride 105 mmol/L (98-107) 05/21/17 03:35 Carbon Dioxide 23 mmol/L (21-33) 05/21/17 03:35 Anion Gap 14 (10-20) 05/21/17 03:35 BUN 15 mg/dL (7-21) 05/21/17 03:35 Creatinine 0.8 mg/dl (0.8-1.5) 05/21/17 03:35 Est GFR ( Amer) > 60 05/21/17 03:35 Est GFR (Non-Af Amer) > 60 05/21/17 03:35 POC Glucose (mg/dL) 110 mg/dL (65-110) 05/21/17 15:47 Random Glucose 138 mg/dL (70-110) H 05/21/17 03:35 Hemoglobin A1c 5.9 % (4.2-6.5) 05/19/17 06:45 Calcium 8.4 mg/dL (8.4-10.5) 05/21/17 03:35 Magnesium 2.4 mg/dL (1.7-2.2) H 05/14/17 05:00 Iron 22 ug/dL (45-180) L 05/19/17 10:00 TIBC 277 ug/dL (261-462) 05/19/17 10:00 % Saturation 8 % (20-55) L 05/19/17 10:00 Ferritin 335.0 ng/mL 05/19/17 09:50 Total Bilirubin 10.8 mg/dL (0.2-1.3) H 05/21/17 03:35 Direct Bilirubin 18.6 mg/dL (0.0-0.4) H 05/16/17 07:50 AST 62 U/L (17-59) H D 05/21/17 03:35 ALT 154 U/L (7-56) H 05/21/17 03:35 Alkaline Phosphatase 135 U/L (38-126) H 05/21/17 03:35 Ammonia < 9 umol/L (9-33) L 05/14/17 05:28 Total Protein 5.7 g/dL (5.8-8.3) L 05/21/17 03:35 Albumin 2.6 g/dL (3.0-4.8) L 05/21/17 03:35 Globulin 3.1 gm/dL 05/21/17 03:35 Albumin/Globulin Ratio 0.8 (1.1-1.8) L 05/21/17 03:35 Lipase 451 U/L (23-300) H 05/14/17 05:28 Alpha Fetoprotein < 0.8 ng/mL (0.0-7.5) 05/14/17 05:00 Carcinoembryonic Ag 7.4 ng/mL (0.0-3.0) H 05/15/17 06:45 CA 19-9 Antigen 6510 U/mL (0-37) H 05/15/17 06:45 Vitamin B12 985 pg/mL (239-931) H 05/19/17 09:50 Folate 13.2 ng/mL 05/19/17 09:50 Procalcitonin 0.34 NG/ML (0.19-0.49) 05/14/17 05:00 TSH 3rd Generation 1.59 mIU/mL (0.46-4.68) 05/14/17 11:53 Urine Color Dark yellow (YELLOW) 05/21/17 12:05 Urine Appearance Sl cloudy (CLEAR) 05/21/17 12:05 Urine pH 6.5 (4.7-8.0) 05/21/17 12:05 Ur Specific [place] 1.025 (1.005-1.035) 05/21/17 12:05 Urine Protein 30 mg/dL (<30 mg/dL) H 05/21/17 12:05 Urine Glucose (UA) 100 mg/dL (NEGATIVE) H 05/21/17 12:05 Urine Ketones 15 mg/dL (NEGATIVE) H 05/21/17 12:05 Urine Blood Negative (NEGATIVE) 05/21/17 12:05 Urine Nitrate Positive (NEGATIVE) H 05/21/17 12:05 Urine Bilirubin Large (NEGATIVE) H 05/21/17 12:05 Urine Urobilinogen 1.0 E.U./dL (<1 E.U./dL) H 05/21/17 12:05 Ur Leukocyte Esterase Trace Missy/uL (NEGATIVE) H 05/21/17 12:05 Urine RBC 0 - 2 /hpf (0-2) 05/21/17 12:05 Urine WBC 2 - 5 /hpf (0-6) 05/21/17 12:05 Ur Epithelial Cells None /hpf (0-5) 05/21/17 12:05 Urine Bacteria Many (NEG) 05/21/17 12:05 IgG 731.3 mg/dL (700.0-1600.0) 05/15/17 06:45 KAUSHIK Screen Negative (Negative) 05/15/17 06:45 KAUSHIK Titer TEST NOT PERFORMED 05/15/17 06:45 KAUSHIK Titer 2 TEST NOT PERFORMED 05/15/17 06:45 KAUSHIK Pattern TEST NOT PERFORMED 05/15/17 06:45 KAUSHIK Pattern 2 TEST NOT PERFORMED 05/15/17 06:45 Anti-Mitochondrial Ab Negative (Negative) 05/15/17 06:45 Smooth Muscle Ab Titer TEST NOT PERFORMED 05/15/17 06:45 Anti-Smooth Muscle Ab Negative (Negative) 05/15/17 06:45 Hepatitis A IgM Ab Negative (NEGATIVE) 05/15/17 06:45 Hep Bs Antigen Negative (NEGATIVE) 05/15/17 06:45 Hep B Core IgM Ab Negative (NEGATIVE) 05/15/17 06:45 Hepatitis Be Antigen Nonreactive (Nonreactive) 05/15/17 06:45 Hepatitis C Antibody Negative (NEGATIVE) 05/15/17 06:45 Blood Type B POSITIVE 05/19/17 10:10 Blood Type Confirm B POSITIVE 05/19/17 10:35 Antibody Screen Negative 05/19/17 10:10 Crossmatch See Detail 05/19/17 10:10 BBK History Checked No verified bt 05/19/17 10:10 Attending/Attestation - Attestation I have personally seen and examined this patient.: Yes I have fully participated in the care of the patient.: Yes I have reviewed all pertinent clinical information, including history, physical exam and plan: Yes Notes (Text): I have seen and examined the patient at bedside. Agree with the above note with the following additions/ exceptions: Briefly this is 72 year old [place] speaking male from [place] with past medical history significant for hypertension, DM-2, hypothyroidism 2/2 thyroidectomy, CAD s/p stent in 2011 with completed plavix, recently diagnosed liver problem in [place] presents to [facility] with abdominal pain, obstructive jaundice, conjugate hyperbilirubinemia and transaminitis. CT abdomen and pelvis showed dilated intrahepatic ductal dilatation and liver mass and nodularity in the mesentery suggesting metastatic disease. MRCP is negative for CBD stone. 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 There is adjacent liver mass. Patient is s/p biliary stent and liver biopsy by Dr. Shankar. LFT and bilirubin improving. Continue to monitor biliary output. Patient reports that abdominal pain has improved however he does have dysuria and frequency. UA suggestive of UTI. Will start cipro and f/u urine culture for sensitivities. CEA and C19-9 elevated. AFP is negative. Biopsy is suggestive of cholangio vs UGI vs pancreatic. Path results were relayed to Oncologist. Hemoglobin continued to drop until yesterday. There is no obvious source of bleeding. Drainage is brownish in color. Discussed with Dr Oreilly. Outpatient EGD and colonoscopy recommended. Upon discharge patient will follow up with Dr Pires and Dr Shankar (IR). Dr Osvaldo Coombs
[2017-05-21] MEDS: Pantoprazole 40 mg EC Tab PO SCH (05:54)
[2017-05-21] MEDS: Levothyroxine 100 MCG TAB PO SCH (08:27)
[2017-05-21] MEDS: POLYETHYLENE GLYCOL 3350 17 GM/Dose PACKET PO SCH (10:06)
[2017-05-21] MEDS: Cholestyramine 4 gm/Pkt UD PO SCH (10:06)
[2017-05-21 12:19] LABS: PH,URINE 6.5 (4.7-8.0); URINE BILIRUBIN LARGE (NEGATIVE); URINE BLOOD NEGATIVE (NEGATIVE); URINE GLUCOSE (UA) 100 mg/dL (NEGATIVE); URINE LEUKOCYTE ESTERASE TRACE Leu/uL (NEGATIVE); URINE PROTEIN 30 mg/dL (<30 mg/dL)
[2017-05-21 12:23] LABS: URINE APPEARANCE SL CLOUDY (CLEAR); URINE COLOR DARK YELLOW (YELLOW)
[2017-05-21 12:33] LABS: URINE BACTERIA MANY (NEG); URINE RBC 0 - 2 /hpf (0-2)
[2017-05-21 15:55] VITALS: BP 122/84; PULSE 80; RESP 18; TEMP 97.8; O2SAT 100
== END 2017-05-21 18:25 | disposition home or self-care (01) | DRG 435 ==
LOC: ED 04:53 → ERH 09:53 → 5RSO 13:07
PROVIDERS: ADMIT Internal Medicine; ATTEND Hospitalist
PROC: 30233N1 Transfusion of Nonautologous Red Blood Cells into Peripheral Vein, Percutaneous Approach (ICD-10-PCS; principal; 2017-05-20)
DX: C22.1 Intrahepatic bile duct carcinoma (principal); K83.1 Obstruction of bile duct; C78.6 Secondary malignant neoplasm of retroperitoneum and peritoneum; N39.0 Urinary tract infection, site not specified; I25.10 Atherosclerotic heart disease of native coronary artery without angina pectoris; I10 Essential (primary) hypertension; E89.0 Postprocedural hypothyroidism; K75.9 Inflammatory liver disease, unspecified; E11.9 Type 2 diabetes mellitus without complications; E78.5 Hyperlipidemia, unspecified; D64.9 Anemia, unspecified; E87.6 Hypokalemia; K59.00 Constipation, unspecified; Z95.5 Presence of coronary angioplasty implant and graft; Z87.891 Personal history of nicotine dependence

== ENCOUNTER 2017-05-21 20:39 | Emergency (ER) | payer MEDICAID, OTHER ==
[2017-05-21 20:50] VITALS: BMI 26.6
--- NOTE | 2017-05-22 00:04 | ED PDOC ---
Arrival/HPI - General Chief Complaint: Male Genitourinary Time Seen by Provider: 05/21/17 20:57 Historian: Patient - History of Present Illness Narrative History of Present Illness (Text): 05/21/17 23:58 A 72 year old male, whose past medical history includes hypertension, diabetes, and stents, CAD, obstructive jaundice, liver mass, intrahepatic ducal dilatation , s/p biliary stent, biliary drain in place presents to the emergency department with complaint of malfunctioning of the stop-cock of his drain. Patient has had to close the stop-cock because of leakage at the site of the drain. It is draining without any problem when opened. The patient denies fevers, chills, headache, dizziness, chest pain, shortness of breath, dyspnea on exertion, cough, abdominal pain, nausea, vomiting, diarrhea, back pain, neck pain, urinary/bowel changes, or any other complaint. Time/Duration: Other (Today) Symptom Onset: Sudden Symptom Course: Unchanged Activities at Onset: Rest, Light Context: Home Past Medical History - Provider Review Nursing Documentation Reviewed: Yes - Cardiac Hx Cardiac Disorders: Yes - Pulmonary Hx Respiratory Disorders: No - Neurological Hx Neurological Disorder: No - HEENT Hx HEENT Disorder: No - Renal Hx Renal Disorder: No - Endocrine/Metabolic Hx Diabetes Mellitus Type 2: Yes - Hematological/Oncological Hx Blood Disorders: No - Integumentary Hx Dermatological Disorder: No - Musculoskeletal/Rheumatological Hx Musculoskeletal Disorders: No - Gastrointestinal Hx Gastrointestinal Disorders: No - Genitourinary/Gynecological Hx Prostate Problems: Yes - Psychiatric Hx Psychophysiologic Disorder: No Hx Substance Use: No - Surgical History Hx Coronary Stent: Yes (x1 2011) Other/Comment: prostate Family/Social History - Physician Review Nursing Documentation Reviewed: Yes Family/Social History: No Known Family HX Smoking Status: Never Smoked Hx Alcohol Use: No Hx Substance Use: No Allergies/Home Meds Allergies/Adverse Reactions: Allergies No Known Allergies Allergy (Verified 05/21/17 20:50) Home Medications: Home Meds Medication Instructions Recorded Confirmed Aspirin [Aspirin Chewable] 100 mg PO DAILY 05/14/17 05/21/17 Levothyroxine [Synthroid] 100 mcg PO DAILY 05/14/17 05/21/17 Review of Systems - Physician Review All systems were reviewed & negative as marked: Yes - Review of Systems Constitutional: absent: Fevers, Night Sweats Respiratory: absent: SOB, Cough Cardiovascular: absent: Chest Pain Gastrointestinal: Other (Leaking from stop-cock site. ). absent: Abdominal Pain , Stool Changes, Diarrhea, Nausea, Vomiting Genitourinary Male: absent: Urinary Output Changes Musculoskeletal: absent: Back Pain, Neck Pain Neurological: absent: Headache, Dizziness Physical Exam Vital Signs Reviewed: Yes Vital Signs Temp Pulse Resp BP Pulse Ox 05/21/17 20:52 98.6 F 89 18 120/78 97 Temperature: Afebrile Blood Pressure: Normal Pulse: Regular Respiratory Rate: Normal Appearance: Positive for: Well-Appearing, Non-Toxic, Comfortable Pain Distress: None Mental Status: Positive for: Alert and Oriented X 3 - Systems Exam Head: Present: Atraumatic, Normocephalic Pupils: Present: PERRL Extroacular Muscles: Present: EOMI Conjunctiva: Present: Normal Mouth: Present: Moist Mucous Membranes Neck: Present: Normal Range of Motion Respiratory/Chest: Present: Clear to Auscultation, Good Air Exchange. No: Respiratory Distress, Accessory Muscle Use Cardiovascular: Present: Regular Rate and Rhythm, Normal S1, S2. No: Murmurs Abdomen: Present: Other (Right bilary draining in place on the right abdomen. Draining brown-like fluid. When the stop-cock is open, leakage at the site which needs to be replaced. The stop- cock is temporarily closed. ). No: Tenderness, Distention, Peritoneal Signs Back: Present: Normal Inspection Upper Extremity: Present: Normal Inspection. No: Cyanosis, Edema Lower Extremity: Present: Normal Inspection. No: Edema Neurological: Present: GCS=15, CN II-XII Intact, Speech Normal Skin: Present: Warm, Dry, Normal Color. No: Rashes Psychiatric: Present: Alert, Oriented x 3, Normal Insight, Normal Concentration Medical Decision Making ED Course and Treatment: 05/22/17 00:06 Impression: Patient present to the emergency department with complaint of drain not functioning. Fluid is leaking from stop-cock site. Plan: -- Reassess and disposition Progress Notes: - The drain is functioning when open. Because of leakage, it is currently closed and will need replacement from surgical supply. 05/22/17 01:26: Replacement was finally found for the patient's stop-cock replaced now functioning properly. - Scribe Statement The provider has reviewed the documentation as recorded by the Scribe Vesna Bravoz Provider Scribe Attestation: All medical record entries made by the Scribe were at my direction and personally dictated by me. I have reviewed the chart and agree that the record accurately reflects my personal performance of the history, physical exam, medical decision making, and the department course for this patient. I have also personally directed, reviewed, and agree with the discharge instructions and disposition. Disposition/Present on Arrival - Present on Arrival Any Indicators Present on Arrival: No History of DVT/PE: No History of Uncontrolled Diabetes: No Urinary Catheter: No History of Decub. Ulcer: No History Surgical Site Infection Following: None - Disposition Have Diagnosis and Disposition been Completed?: Yes Diagnosis: Equipment malfunction Disposition: HOME/ ROUTINE Disposition Time: 01:27 Patient Plan: Discharge Patient Problems: Current Active Problems Problem Status Onset Equipment malfunction Acute Condition: GOOD Additional Instructions: Follow up with your doctor this week Referrals: Lucina Encarnacion, [Primary Care Provider] - Follow up with primary Forms: [employer] (Turkish)
[2017-05-22 15:21] VITALS: BP 142/66; PULSE 82; RESP 16; TEMP 98; O2SAT 99
== END 2017-05-22 02:00 | disposition home or self-care (01) ==
LOC: ED 20:39
DX: T85.618A Breakdown (mechanical) of other specified internal prosthetic devices, implants and grafts, initial encounter (principal); E11.9 Type 2 diabetes mellitus without complications; I10 Essential (primary) hypertension; I25.10 Atherosclerotic heart disease of native coronary artery without angina pectoris

== ENCOUNTER 2017-06-11 23:09 | Inpatient (IN) | payer MEDICAID, OTHER ==
[2017-06-11 23:10] VITALS: BMI 22.4
--- NOTE | 2017-06-12 00:08 | ED PDOC ---
Arrival/HPI - General Chief Complaint: Medical Clearance Time Seen by Provider: 06/12/17 00:04 Historian: Family (Son) - History of Present Illness Narrative History of Present Illness (Text): 06/12/17 00:05 A 72 year old male, whose past medical history includes liver CA, hypertension, diabetes, and stents, CAD, obstructive jaundice, liver mass, intrahepatic ducal dilatation, s/p biliary drain placement, presents to the emergency department for evaluation of the drainage site. As per the son, the patient's biliary drain looks as if it is infected and has been pulled about about 1 cm. The patient's son states that the last time he checked the drain was 4-5 days ago. The drain was placed about 1 month ago. The patient denies fevers, chills, headache, dizziness, chest pain, shortness of breath, dyspnea on exertion, cough , abdominal pain, nausea, vomiting, diarrhea, back pain, neck pain, urinary/ bowel changes, or any other complaint. PMD: Dr. Headley Time/Duration: Other (Today) Symptom Onset: Sudden Symptom Course: Unchanged Activities at Onset: Rest, Light Context: Home Past Medical History - Provider Review Nursing Documentation Reviewed: Yes - Infectious Disease Hx of Infectious Diseases: None - Cardiac Hx Cardiac Disorders: Yes - Pulmonary Hx Respiratory Disorders: No - Neurological Hx Neurological Disorder: No - HEENT Hx HEENT Disorder: No - Renal Hx Renal Disorder: No - Endocrine/Metabolic Hx Diabetes Mellitus Type 2: Yes - Hematological/Oncological Hx Blood Disorders: No - Integumentary Hx Dermatological Disorder: No - Musculoskeletal/Rheumatological Hx Musculoskeletal Disorders: No - Gastrointestinal Hx Gastrointestinal Disorders: No - Genitourinary/Gynecological Hx Prostate Problems: Yes - Psychiatric Hx Psychophysiologic Disorder: No Hx Substance Use: No - Surgical History Hx Coronary Stent: Yes (x1 2011) Other/Comment: prostate Family/Social History - Physician Review Nursing Documentation Reviewed: Yes Family/Social History: No Known Family HX Smoking Status: Never Smoked Hx Alcohol Use: No Hx Substance Use: No Allergies/Home Meds Allergies/Adverse Reactions: Allergies No Known Allergies Allergy (Verified 06/11/17 23:34) Home Medications: Home Meds Medication Instructions Recorded Confirmed Aspirin [Aspirin Chewable] 81 mg PO DAILY 05/14/17 06/11/17 Levothyroxine [Synthroid] 100 mcg PO DAILY 05/14/17 06/11/17 Home Med [Home Med] 30 mg PO DAILY 06/04/17 06/11/17 Polyethylene Glycol 3350 [Miralax] 17 gm PO DAILY PRN 06/11/17 06/11/17 Review of Systems - Physician Review All systems were reviewed & negative as marked: Yes - Review of Systems Constitutional: absent: Fevers Gastrointestinal: absent: Abdominal Pain Physical Exam - Physical Exam Narrative Physical Exam (Text): 06/12/17 00:08 Constitutional: No acute distress. Head: Normocephalic. Atraumatic. Eyes: PERRL. ENT: Moist mucous membranes. Neck: Supple. Cardiovascular: Regular rate. Chest: No tenderness. Respiratory: Clear to auscultation bilaterally. GI: Soft. Nontender. Nondistended. Biliary drain in place. There is bloody puss and dark discoloration on the bandage. Back: No CVA tenderness. Musculoskeletal: No tenderness or swelling of extremities. Skin: No rash. Neurologic: Alert, no focal deficit. Vital Signs Reviewed: Yes Vital Signs Temp Pulse Resp BP Pulse Ox 06/12/17 04:17 73 18 135/83 99 06/11/17 23:30 98.6 F 79 18 143/88 98 Temperature: Afebrile Blood Pressure: Normal Pulse: Regular Respiratory Rate: Normal Appearance: Positive for: Well-Appearing, Non-Toxic, Comfortable Pain Distress: None Mental Status: Positive for: Alert and Oriented X 3 Medical Decision Making ED Course and Treatment: 06/12/17 00:09 Impression: A 72 year old male is brought into the emergency department by son for further evaluation of his biliary drainage site. Plan: -- Abdomen/Pelvis CT -- EKG -- Labs -- Urinalysis -- Urine Culture -- Reassess and disposition Prior Visits: Notes and results from previous visits were reviewed. Patient was last seen in the emergency department on 05/21/17. The patient was seen for the malfunctioning of the stop-cock of his drain. Progress Notes: 06/12/17 01:02 EKG: Ordered, reviewed, and independently interpreted the EKG. Rate : 77 BPM Rhythm : NSR Interpretation : No ST-T wave changes. CT Abdomen and Pelvis Without Intravenous Contrast EXAM DATE/TIME: 06/12/2017 12:07 AM Dictated and Authenticated by: Lyly Philip MD 06/12/2017 2:29 AM Eastern Time ([place] & [place]) IMPRESSION: New right pleural effusion with atelectasis. Percutaneous biliary catheter unchanged in position. Complex right hepatic fluid collection. Abscess cannot be excluded. Free fluid in the pelvis slightly increased. 06/12/17 03:20: Case discussed with medical science liaison. Dr. Plata accepts patient to hospitalist service. - Lab Interpretations Lab Results: 06/12/17 00:20 06/12/17 00:20 Lab Results 06/12/17 01:13: Urine Color Yellow, Urine Appearance Clear, Urine pH 6.0, Ur Specific [place] 1.025, Urine Protein Trace H, Urine Glucose (UA) Negative, Urine Ketones Negative, Urine Blood Negative, Urine Nitrate Negative, Urine Bilirubin Negative, Urine Urobilinogen 0.2, Ur Leukocyte Esterase Negative, Urine RBC 0 - 2, Urine WBC 0 - 2, Ur Epithelial Cells 0 - 2 06/12/17 00:20: PT 12.1, INR 1.06, APTT 24.8 L 06/12/17 00:20: WBC 7.6, RBC 3.72, Hgb 11.1 L, Hct 34.0 L, MCV 91.4, MCH 29.8, MCHC 32.6, RDW 16.7 H, Plt Count 346, MPV 9.3, Gran % 68.0, Lymph % (Auto) 20.9 L, [place] % (Auto) 9.6 H, Eos % (Auto) 1.4 L, Baso % (Auto) 0.1, Gran # 5.16, Lymph # (Auto) 1.6, [place] # (Auto) 0.7 H, Eos # (Auto) 0.1, Baso # (Auto) 0.01 06/12/17 00:20: Blood Type B POSITIVE, Antibody Screen Negative, BBK History Checked Patient has bt 06/12/17 00:20: Sodium 140, Potassium 4.0, Chloride 103, Carbon Dioxide 28, Anion Gap 14, BUN 26 H, Creatinine 1.0, Est GFR ( Amer) > 60, Est GFR ( Non-Af Amer) > 60, Random Glucose 104, Calcium 8.6, Total Bilirubin 3.0 H, Direct Bilirubin 2.7 H, AST 57, ALT 90 H, Alkaline Phosphatase 107, Total Protein 6.4, Albumin 3.4, Globulin 2.9, Albumin/Globulin Ratio 1.2, Lipase 507 H I have reviewed the lab results: Yes - RAD Interpretation Radiology Orders: 06/12/17 00:07 ABD & PELVIS W/O PO OR IV CONT [CT] Stat - EKG Interpretation Interpreted by ED Physician: Yes Type: 12 lead EKG - Scribe Statement The provider has reviewed the documentation as recorded by the Viktoriaibjohn Brambila Provider Scribe Attestation: All medical record entries made by the Viktoriaibjohn were at my direction and personally dictated by me. I have reviewed the chart and agree that the record accurately reflects my personal performance of the history, physical exam, medical decision making, and the department course for this patient. I have also personally directed, reviewed, and agree with the discharge instructions and disposition. Disposition/Present on Arrival - Present on Arrival Any Indicators Present on Arrival: No History of DVT/PE: No History of Uncontrolled Diabetes: No Urinary Catheter: No History of Decub. Ulcer: No History Surgical Site Infection Following: None - Disposition Have Diagnosis and Disposition been Completed?: Yes Diagnosis: Intraabdominal fluid collection, Biliary drain displacement Disposition: HOSPITALIZED Disposition Time: 02:59 Patient Plan: Observation Condition: FAIR
[2017-06-12 00:46] LABS: BASO # 0.01 K/mm3 (0.0-2.0); BASO % 0.1 % (0.0-3.0); EOS # 0.1 (0.0-0.7); EOS % 1.4 % (1.5-5.0); GRAN # 5.16 (1.4-6.5); HEMOGLOBIN 11.1 g/dL (14.0-18.0); LYMPH # 1.6 (1.2-3.4); LYMPH % 20.9 % (22.0-35.0); MEAN CELL VOLUME 91.4 fl (80.0-105.0); MEAN CORPUSCULAR HEMOGLOBIN 29.8 pg (25.0-35.0); MEAN CORPUSCULAR HGB CONC 32.6 g/dl (31.0-37.0); MEAN PLATELET VOLUME 9.3 fl (7.0-11.0); MONO # 0.7 (0.1-0.6); MONO % 9.6 % (1.0-6.0); RBC 3.72 10^6/uL (3.5-6.1); RED CELL DISTRIBUTION WIDTH 16.7 % (11.5-14.5); WHITE BLOOD COUNT 7.6 10^3/ul (4.5-11.0)
[2017-06-12 00:51] LABS: INR 1.06 (0.93-1.08); PARTIAL THROMBOPLASTIN TIME 24.8 Seconds (25.1-36.5); PROTHROMBIN TIME 12.1 SECONDS (9.4-12.5)
[2017-06-12 00:59] LABS: ALB/GLOB RATIO 1.2 (1.1-1.8); ALBUMIN 3.4 g/dL (3.0-4.8); ALT/SGPT 90 U/L (7-56); AST/SGOT 57 U/L (17-59); BILIRUBIN,DIRECT 2.7 mg/dL (0.0-0.4); BLOOD UREA NITROGEN 26 mg/dL (7-21); CALCIUM 8.6 mg/dL (8.4-10.5); GFR AFRICAN-AMERICAN > 60; GFR NON-AFRICAN AMERICAN > 60; LIPASE 507 U/L (23-300)
[2017-06-12 01:22] LABS: URINE BILIRUBIN NEGATIVE (NEGATIVE); URINE BLOOD NEGATIVE (NEGATIVE); URINE GLUCOSE (UA) NEGATIVE (NEGATIVE); URINE LEUKOCYTE ESTERASE NEGATIVE Leu/uL (NEGATIVE); URINE PROTEIN TRACE mg/dL (<30 mg/dL); URINE UROBILINOGEN 0.2 E.U./dL (<1 E.U./dL)
[2017-06-12 01:24] LABS: URINE COLOR YELLOW (YELLOW)
[2017-06-12 01:25] LABS: URINE APPEARANCE CLEAR (CLEAR)
[2017-06-12 01:35] LABS: URINE EPITHELIAL CELLS 0 - 2 /hpf (0-5); URINE RBC 0 - 2 /hpf (0-2); URINE WBC 0 - 2 /hpf (0-6)
--- NOTE | 2017-06-12 02:29 | CT ---
EXAM: CT Abdomen and Pelvis Without Intravenous Contrast EXAM DATE/TIME: 06/12/2017 12:07 AM CLINICAL HISTORY: 72 years old, male; Signs and symptoms; Other: Pus out of biliary drain; Prior surgery; Additional info: Biliary drain displaced, bleeding, pus from site TECHNIQUE: Axial computed tomography images of the abdomen and pelvis without intravenous contrast. All CT scans at this facility use one or more dose reduction techniques, viz.: automated exposure control; ma/kV adjustment per patient size (including targeted exams where dose is matched to indication; i.e. head); or iterative reconstruction technique. Coronal and sagittal reformatted images were created and reviewed. COMPARISON: CT - ABD PELVIS PO IV CONTRAST 2017-06-05 14:50 FINDINGS: There is a small right pleural effusion with associated compressive atelectasis both new since prior study. There is a percutaneous biliary catheter are unchanged in position. The previously seen pneumobilia has resolved. Otherwise, the biliary ducts appear unchanged. There is probable periportal edema. There is a complex appearing fluid collection along the posterior aspect of the right hepatic lobe. Evaluation is limited due to lack of contrast however there is a small amount of adjacent stranding suggesting ot may represent an abscess. The collection is similar in size measuring 9.5 x 5.5 cm. There are 2 hypoattenuating lesions (one in the posterior right lobe and the other in the regional left lobe) that are better seen on the prior to the administration of contrast. The appearance is concerning for metastatic disease. The spleen and pancreas are grossly normal on noncontrast study. Stable left renal cyst. Slight mass effect upon the right kidney by the right hepatic fluid collection. There is free fluid in the pelvis slightly increased since prior. It would be difficult to exclude a walled off component of the fluid without intravenous contrast. Moderate amount of stool throughout the colon. IMPRESSION: New right pleural effusion with atelectasis. Percutaneous biliary catheter unchanged in position. Complex right hepatic fluid collection. Abscess cannot be excluded. Free fluid in the pelvis slightly increased.
[2017-06-12] MEDS ORDERED: POLYETHYLENE GLYCOL 3350 17 GM/Dose PACKET PO PRN (04:26)
[2017-06-12] MEDS ORDERED: Sodium Chloride 0.9% 1,000 ML IV SCH ×2 (04:30→04:32)
[2017-06-12] MEDS ORDERED: Enoxaparin 40 mg Syringe SC STA (04:44)
--- NOTE | 2017-06-12 05:34 | CP.PCM.HP ---
<Jagdish Brooks - Last Filed: 06/12/17 07:18> History of Present Illness - History of Present Illness History of Present Illness: IM H&P for Hospitalist Service CC: yellow discharge in bandages of biliary drain This is a 72 yo Maltese-speaking M with PMH of cholangiocarcinoma with liver mets , hypertension, diabetes, CAD s/p stents, obstructive jaundice, liver mass, and intrahepatic ducal dilatation s/p biliary drain placement, presents to the emergency department for evaluation of the drainage site for possible purulent drainage. As per Son at bedside, he first noted drainage on the bandages covering the drain today when changing it. The bandage was light yellow with edge covering the site of suturing darkly discolored, scant serosanguinous fluids. Patient and son denies bloody discharge, kemar pus, warmth at site, or fevers/chills, nausea, emesis. Denies any other systemic symptoms, denies any pain. Does admit to chronic leg edema, unchanged from baseline, no asymmetrical swelling or pain. All other ROS in 12-system review negative. PMH: as above PSH: biliary stent/drain placement (~1 month prior), prostate surgery, thyroidectomy, cardiac stenting Fam Hx: Unknown Soc Hx: Lives with son, former smoker (quit > 25 yr ago), denies EtOH/IVDA/ illicits PMD: Dr. Headley Present on Admission - Present on Admission Any Indicators Present on Admission: No History of DVT/PE: No History of Uncontrolled Diabetes: No Urinary Catheter: No Review of Systems - Review of Systems All systems: reviewed and no additional remarkable complaints except (as per HPI ) Past Patient History - Infectious Disease Hx of Infectious Diseases: None - Past Social History Smoking Status: Never Smoked - CARDIAC Hx Cardiac Disorders: Yes - PULMONARY Hx Respiratory Disorders: No - NEUROLOGICAL Hx Neurological Disorder: No - HEENT Hx HEENT Problems: No - RENAL Hx Chronic Kidney Disease: No - ENDOCRINE/METABOLIC Hx Diabetes Mellitus Type 2: Yes - HEMATOLOGICAL/ONCOLOGICAL Hx Blood Disorders: No - INTEGUMENTARY Hx Dermatological Problems: No - MUSCULOSKELETAL/RHEUMATOLOGICAL Hx Musculoskeletal Disorders: No - GASTROINTESTINAL Hx Gastrointestinal Disorders: No - GENITOURINARY/GYNECOLOGICAL Hx Prostate Problems: Yes - PSYCHIATRIC Hx Psychophysiologic Disorder: No Hx Substance Use: No - SURGICAL HISTORY Hx Coronary Stent: Yes (x1 2011) Other/Comment: prostate - ANESTHESIA Hx Anesthesia: Yes Hx Anesthesia Reactions: Yes Hx Malignant Hyperthermia: No Meds Allergies/Adverse Reactions: Allergies Allergy/AdvReac Type Severity Reaction Status Date / Time No Known Allergies Allergy Verified 06/11/17 23:34 Physical Exam - Constitutional Appears: Well, Non-toxic, No Acute Distress - Head Exam Head Exam: ATRAUMATIC, NORMAL INSPECTION, NORMOCEPHALIC - Eye Exam Eye Exam: EOMI, Normal appearance, PERRL. absent: Conjunctival injection, Scleral icterus Pupil Exam: NORMAL ACCOMODATION, PERRL. absent: Fixed, Irregular, Unequal - ENT Exam ENT Exam: Mucous Membranes Moist, Normal Exam - Neck Exam Neck exam: Positive for: Full Rom, Normal Inspection - Respiratory Exam Respiratory Exam: Clear to Auscultation Bilateral, NORMAL BREATHING PATTERN. absent: Accessory Muscle Use, Chest Wall Tenderness, Decreased Breath Sounds, Rales, Rhonchi, Wheezes - Cardiovascular Exam Cardiovascular Exam: REGULAR RHYTHM, RRR, +S1, +S2. absent: Bradycardia, Tachycardia, Irregular Rhythm, JVD, +S4 - GI/Abdominal Exam GI & Abdominal Exam: Normal Bowel Sounds, Soft. absent: Diminished Bowel Sounds , Distended, Firm, Guarding, Hyperactive Bowel Sounds, Hypoactive Bowel Sounds, Rigid, Tenderness Additional comments: right upper quadrant has biliary drain (secured by stitch) emerging, light- yellow discharge staining dressing, no active bleeding from site, no expressed blood/pus/discharge with pressure at site. - Extremities Exam Extremities exam: Positive for: normal capillary refill, normal inspection, pedal pulses present. Negative for: calf tenderness, pedal edema, tenderness - Back Exam Back exam: absent: CVA tenderness (L), CVA tenderness (R) - Neurological Exam Neurological exam: Alert, Oriented x3 Additional comments: awake and alert, following all commands appropriately, motor appears grossly intact and equal - Psychiatric Exam Psychiatric exam: Normal Affect, Normal Mood - Skin Skin Exam: Dry, Intact, Normal Color, Warm Results - Vital Signs Recent Vital Signs: Last Vital Signs Temp 98.6 F 06/11/17 23:30 Pulse 73 06/12/17 04:17 Resp 18 06/12/17 04:17 BP 135/83 06/12/17 04:17 Pulse Ox 99 06/12/17 04:17 - Labs Result Diagrams: 06/12/17 00:20 06/12/17 00:20 Assessment & Plan - Assessment and Plan (Free Text) Assessment: This is a 72 yo Maltese-speaking M with PMH of cholangiocarcinoma with liver mets , hypertension, diabetes, CAD s/p stents, obstructive jaundice, liver mass, and intrahepatic ducal dilatation s/p biliary drain placement, presents to the emergency department for evaluation of the drainage site for possible purulent drainage. He also had CT abd/pelvis findings concerning for possible hepatic abscess.. Plan: 1) Suspected purulent drainage from biliary drain site -bile leak vs purulent discharge vs serosanguinous discharge -no induration or purulence appreciated at site of drain, clear/light yellow fluid staining inner portion of dressing, no bleed-through to other side of dressing -no expressed blood or discharge when applying pressure to site of drain insertion into abdomen, no fluctuance or induration appreciated at site, no fevers/chills, so less likely infectious process -lack of leukocytosis also suggestive of non-infectious process, although actively on chemo, so may be lack of leukocytosis 2/2 immunosuppresion -empirically covering with Zosyn, pending ID eval and recs -still draining actively into bag, reports emptying 3x per day 2) possible hepatic abscess -given lack of systemic symptoms, lack of fever/leukocytosis, stable mildly- elevated LFTs; unlikely hepatic abscess -prior CT with PO/IV contrast notable for hepatic mets, 6x10cm posterior right lobe; again noted on admission CT but read as possible abscess, still 6x10cm -empiric coverage with cefepime pending ID recs -IR consulted for possible tap of fluid collection vs abscess 3) Cholangiocarcinoma with liver mets -Heme-onc consulted, appreciate all recs 4) Hx Thyroidectomy -continue synthroid 5) DM -Lispro low sliding scale with ACHS Dispo: Med/Surg obs, pending ID/IR/Heme-onc eval and recs, continue IV abx FEN: NPO pending possible procedure, NS 75cc/hr Access: Peripheral IV, Biliary drain Consults: IR, ID, Heme-onc Ppx: Protonix for GI, SCD for DVT Patient seen, reviewed, and discussed with attending, Dr. Plata. Decision To Admit - Pt Status Changed To: Hospital Disposition Of: Observation - . Bed Request Type: Med/Surg <Gómez Morales - Last Filed: 06/13/17 15:01> Results - Vital Signs Recent Vital Signs: Last Vital Signs Temp 97.4 F L 06/13/17 07:45 Pulse 74 06/13/17 07:45 Resp 20 06/13/17 07:45 BP 130/77 06/13/17 07:45 Pulse Ox 98 06/13/17 07:45 - Labs Result Diagrams: 06/13/17 05:30 06/13/17 05:30 Labs: Laboratory Results - last 24 hr 06/12/17 06/12/17 06/12/17 16:33 17:38 21:24 WBC RBC Hgb Hct MCV MCH MCHC RDW Plt Count MPV Gran % Lymph % (Auto) [place] % (Auto) Eos % (Auto) Baso % (Auto) Gran # Lymph # (Auto) [place] # (Auto) Eos # (Auto) Baso # (Auto) Sodium Potassium Chloride Carbon Dioxide Anion Gap BUN Creatinine Est GFR ( Amer) Est GFR (Non-Af Amer) POC Glucose (mg/dL) 77 83 99 Random Glucose Calcium Total Bilirubin Direct Bilirubin AST ALT Alkaline Phosphatase Total Protein Albumin Globulin Albumin/Globulin Ratio 06/13/17 06/13/17 06/13/17 05:30 05:30 07:16 WBC 5.5 D RBC 3.85 Hgb 11.3 L Hct 34.9 L MCV 90.6 MCH 29.4 MCHC 32.4 RDW 16.5 H Plt Count 279 MPV 9.6 Gran % 68.7 H Lymph % (Auto) 23.6 [place] % (Auto) 6.2 H Eos % (Auto) 1.5 Baso % (Auto) 0.0 Gran # 3.76 Lymph # (Auto) 1.3 [place] # (Auto) 0.3 Eos # (Auto) 0.1 Baso # (Auto) 0.00 Sodium 142 Potassium 4.5 Chloride 109 H Carbon Dioxide 23 Anion Gap 15 BUN 18 Creatinine 0.8 Est GFR ( Amer) > 60 Est GFR (Non-Af Amer) > 60 POC Glucose (mg/dL) 102 Random Glucose 94 Calcium 8.4 Total Bilirubin 2.6 H Direct Bilirubin 2.2 H AST 85 H D ALT 78 H Alkaline Phosphatase 86 Total Protein 6.1 Albumin 3.1 Globulin 3.0 Albumin/Globulin Ratio 1.0 L 05/05/18 12:00 WBC RBC Hgb Hct MCV MCH MCHC RDW Plt Count MPV Gran % Lymph % (Auto) [place] % (Auto) Eos % (Auto) Baso % (Auto) Gran # Lymph # (Auto) [place] # (Auto) Eos # (Auto) Baso # (Auto) Sodium Potassium Chloride Carbon Dioxide Anion Gap BUN Creatinine Est GFR ( Amer) Est GFR (Non-Af Amer) POC Glucose (mg/dL) 79 Random Glucose Calcium Total Bilirubin Direct Bilirubin AST ALT Alkaline Phosphatase Total Protein Albumin Globulin Albumin/Globulin Ratio Attending/Attestation - Attestation I have personally seen and examined this patient.: Yes I have fully participated in the care of the patient.: Yes I have reviewed all pertinent clinical information: Yes Notes (Text): 06/13/17 14:44 Attending note; patient seen and examined with resident. This is a 72 year old Maltese-speaking [place] male with PMH of cholangiocarcinoma with liver mets, hypertension, diabetes, CAD s/p stents, obstructive jaundice, liver mass, and intrahepatic ducal dilatation s/p biliary drain placement is admitted for biliary drain leak. Denies any fevers, chills. Denies any nausea, vomiting. Patient is getting chemotherapy with cisplatin for the past 2 weeks.Last dose was 2 days ago. IR evaluation with Dr. Duarte Guerra requested. no signs of infection; continue IV Zosyn. Culture sent. The diagnosis and follow-up plan discussed with patient in detail.
[2017-06-12] MEDS: Piperacillin/Tazobact 3.375 gm 100 ML IVPB SCH ×3 (06:58→17:45)
[2017-06-12] MEDS: Levothyroxine 100 MCG TAB PO SCH (06:58)
[2017-06-12] MEDS: Pantoprazole 20 mg EC Tab PO SCH (06:58)
[2017-06-12 08:03] LABS: BASO # 0.01 K/mm3 (0.0-2.0); BASO % 0.1 % (0.0-3.0); EOS # 0.1 (0.0-0.7); EOS % 1.8 % (1.5-5.0); GRAN # 5.04 (1.4-6.5); GRAN % 65.5 % (50.0-68.0); HEMOGLOBIN 10.9 g/dL (14.0-18.0); LYMPH # 1.9 (1.2-3.4); LYMPH % 24.2 % (22.0-35.0); MEAN CELL VOLUME 90.6 fl (80.0-105.0); MEAN CORPUSCULAR HGB CONC 33.1 g/dl (31.0-37.0); MEAN PLATELET VOLUME 9.2 fl (7.0-11.0); MONO # 0.7 (0.1-0.6); MONO % 8.4 % (1.0-6.0); RBC 3.63 10^6/uL (3.5-6.1); RED CELL DISTRIBUTION WIDTH 16.5 % (11.5-14.5); WHITE BLOOD COUNT 7.7 10^3/ul (4.5-11.0)
[2017-06-12 08:15] LABS: ALB/GLOB RATIO 1.2 (1.1-1.8); ALT/SGPT 78 U/L (7-56); AST/SGOT 59 U/L (17-59); BILIRUBIN,DIRECT 2.3 mg/dL (0.0-0.4); BLOOD UREA NITROGEN 21 mg/dL (7-21); CALCIUM 8.3 mg/dL (8.4-10.5); GFR AFRICAN-AMERICAN > 60; GFR NON-AFRICAN AMERICAN > 60
[2017-06-12 08:18] LABS: INR 1.1 (0.93-1.08); PARTIAL THROMBOPLASTIN TIME 27.5 Seconds (25.1-36.5); PROTHROMBIN TIME 12.7 SECONDS (9.4-12.5)
[2017-06-12] MEDS: Insulin Lispro (humaLOG) LOW Coverage SC SCH ×3 (08:43→17:39)
--- NOTE | 2017-06-12 11:11 | CP.PCM.CON ---
History of Present Illness - History of Present Illness History of Present Illness: PGY-[address] Headley's service 72 yo [place]ian-speaking Male with PMH of cholangiocarcinoma with liver mets, hypertension, diabetes, CAD s/p stents, obstructive jaundice, and intrahepatic ducal dilatation s/p biliary drain placement, presents to the emergency department for evaluation of the drainage site for possible purulent drainage. Drainage was noted to be on the bandages covering the drain yesterday when family was changing it. Denies bloody discharge, kemar pus, warmth at site, or fevers/chills, nausea, emesis. Patient denies any abd pain or pain in other location. He admits to leg edema bilaterally. Patient was recent in infusion clinic for treatment with cicplatin and fosaprepitant and IV hydration. Recent triphasic liver protocol CT of abd and pelvis with oral and IV contrast reviewed , showed 3 cm lesion in the posterior segment of the right lobe and hypodense lesion in medical segment of left lobe, subcapsular fluid collection. PMH: cholangiocarcinoma with liver mets, hypertension, diabetes, CAD s/p stents , obstructive jaundice, and intrahepatic ducal dilatation PSH: biliary stent/drain placement (~1 month prior), prostate surgery, thyroidectomy, cardiac stenting Fam Hx: Unknown Soc Hx: Lives with son, former smoker (quit > 25 yr ago), denies alcohol, illicit drug use Review of Systems - Review of Systems All systems: reviewed and no additional remarkable complaints except Past Patient History - Infectious Disease Hx of Infectious Diseases: None - Past Social History Smoking Status: Never Smoked - CARDIAC Hx Cardiac Disorders: Yes Hx Cardia Arrhythmia: Yes Hx Circulatory Problems: Yes Hx Hypercholesterolemia: Yes Hx Hypertension: Yes Hx Peripheral Edema: Yes - PULMONARY Hx Respiratory Disorders: No - NEUROLOGICAL Hx Neurological Disorder: No - HEENT Hx HEENT Problems: Yes - RENAL Hx Chronic Kidney Disease: No - ENDOCRINE/METABOLIC Hx Endocrine Disorders: Yes Hx Diabetes Mellitus Type 2: Yes - HEMATOLOGICAL/ONCOLOGICAL Hx Cancer: Yes Hx Chemotherapy: Yes - INTEGUMENTARY Hx Dermatological Problems: No - MUSCULOSKELETAL/RHEUMATOLOGICAL Hx Musculoskeletal Disorders: Yes Hx Back Pain: Yes Hx Falls: No - GASTROINTESTINAL Hx Gastrointestinal Disorders: Yes Hx Liver Failure: Yes Other/Comment: Biliary Drain placed one month ago 05/2017 - GENITOURINARY/GYNECOLOGICAL Hx Prostate Problems: Yes - PSYCHIATRIC Hx Psychophysiologic Disorder: No Hx Substance Use: No - SURGICAL HISTORY Hx Surgeries: No Hx Cardiac Catheterization: Yes Hx Coronary Stent: Yes - ANESTHESIA Hx Anesthesia: Yes Hx Anesthesia Reactions: Yes Hx Malignant Hyperthermia: No Meds Allergies/Adverse Reactions: Allergies Allergy/AdvReac Type Severity Reaction Status Date / Time No Known Allergies Allergy Verified 06/11/17 23:34 - Medications Medications: Current Medications Ferrous Sulfate (Feosol) 324 mg PO DAILY [facility] Last Admin: 06/12/17 09:38 Dose: Not Given Piperacillin Sod/Tazobactam Sod (Zosyn 3.375 In Ns 100ml) 100 mls @ 200 mls/hr IVPB Q6 [facility] PRN Reason: Protocol Stop: 06/12/17 12:29 Last Admin: 06/12/17 06:58 Dose: 200 mls/hr Sodium Chloride (Sodium Chloride 0.9%) 1,000 mls @ 75 mls/hr IV .[id number] [facility] Last Admin: 06/12/17 05:20 Dose: 75 mls/hr Insulin Human Lispro (Humalog Low) 0 units SC ACHS [facility] PRN Reason: Protocol Last Admin: 06/12/17 08:43 Dose: Not Given Levothyroxine Sodium (Synthroid) 100 mcg PO 0600 [facility] Last Admin: 06/12/17 06:58 Dose: 100 mcg Ondansetron HCl (Zofran Inj) 4 mg IVP Q6H PRN PRN Reason: Nausea/Vomiting Pantoprazole Sodium (Protonix Ec Tab) 20 mg PO 0600 [facility] Last Admin: 06/12/17 06:58 Dose: 20 mg Polyethylene Glycol (Miralax) 17 gm PO DAILY PRN PRN Reason: Constipation Physical Exam - Constitutional Appears: No Acute Distress - Head Exam Head Exam: ATRAUMATIC, NORMOCEPHALIC - Eye Exam Eye Exam: EOMI, Normal appearance - Respiratory Exam Respiratory Exam: Clear to Auscultation Bilateral, NORMAL BREATHING PATTERN. absent: Decreased Breath Sounds, Rales, Rhonchi, Wheezes, Respiratory Distress - Cardiovascular Exam Cardiovascular Exam: REGULAR RHYTHM, +S1, +S2. absent: Bradycardia, Tachycardia , Systolic Murmur - GI/Abdominal Exam GI & Abdominal Exam: Normal Bowel Sounds, Soft. absent: Distended, Firm, Tenderness - Extremities Exam Additional comments: +1 pitting edema - Neurological Exam Neurological exam: Alert, Oriented x3 - Skin Skin Exam: Dry, Intact, Normal Color, Warm Results - Vital Signs Recent Vital Signs: Last Vital Signs Temp 98.4 F 06/12/17 08:43 Pulse 76 06/12/17 08:43 Resp 18 06/12/17 10:24 BP 142/92 H 06/12/17 08:43 Pulse Ox 98 06/12/17 08:43 - Labs Result Diagrams: 06/12/17 07:50 06/12/17 07:50 Labs: Laboratory Results - last 24 hr 06/12/17 06/12/17 06/12/17 07:50 07:50 07:50 WBC 7.7 RBC 3.63 Hgb 10.9 L Hct 32.9 L MCV 90.6 MCH 30.0 MCHC 33.1 RDW 16.5 H Plt Count 305 MPV 9.2 Gran % 65.5 Lymph % (Auto) 24.2 [place] % (Auto) 8.4 H Eos % (Auto) 1.8 Baso % (Auto) 0.1 Gran # 5.04 Lymph # (Auto) 1.9 [place] # (Auto) 0.7 H Eos # (Auto) 0.1 Baso # (Auto) 0.01 PT 12.7 H INR 1.10 H APTT 27.5 Sodium 139 Potassium 3.5 L Chloride 105 Carbon Dioxide 24 Anion Gap 13 BUN 21 Creatinine 0.9 Est GFR ( Amer) > 60 Est GFR (Non-Af Amer) > 60 Random Glucose 73 Calcium 8.3 L Phosphorus 3.5 Magnesium 1.9 Total Bilirubin 2.6 H Direct Bilirubin 2.3 H AST 59 ALT 78 H Alkaline Phosphatase 104 Total Protein 5.6 L Albumin 3.0 Globulin 2.6 Albumin/Globulin Ratio 1.2 Assessment & Plan - Assessment and Plan (Free Text) Assessment: 72 yo [place]ian-speaking M with PMH of cholangiocarcinoma with liver mets, hypertension, diabetes, CAD s/p stents, obstructive jaundice, and intrahepatic ducal dilatation s/p biliary drain placement, presents to the emergency department for evaluation of the drainage site for possible purulent drainage. Plan: Suspected purulent drainage from biliary drain site most likely bile leak afebrile without leukocytosis empirically treated with Zosyn pending ID eval and recs IR consulted for possible internalization of drain total bilirubin is trending down consider port cath placement as well continue synthroid Lispro low sliding scale with ACHS case reviewed, and discussed with Dr. Headley
[2017-06-12] MEDS ORDERED: Midazolam 2 MG/2 ML VIAL ONE ×2 (12:15→14:50)
[2017-06-12] MEDS ORDERED: Lidocaine 1% Inj (20ml) ONE (12:56)
[2017-06-12] MEDS ORDERED: Lidocaine 2% Inj (20ml) ONE (14:50)
[2017-06-12] MEDS ORDERED: Iodixanol 320 MG/ML 100 ML BOTTLE IV ONE (14:51)
--- NOTE | 2017-06-12 15:54 | CP.PCM.CON ---
History of Present Illness - History of Present Illness History of Present Illness: Infectious Disease Consultation: June 12, 2017 72 yo male with findings of yellow discharge on bandages around the biliary drain. His PMHx includes cholangiocarcinoma with liver mets, hypertension, diabetes, CAD s/p stents, obstructive jaundice, liver mass, and intrahepatic ducal dilatation s/p biliary drain placement. The patient with no fever or chills. Discharge was not bloody and did not appear to have pus. Site is NOT tender or erythematous. PMHx: cholangiocarcinoma with liver mets, hypertension, diabetes, CAD s/p stents, obstructive jaundice, liver mass, and intrahepatic ducal dilatation s/p biliary drain placement PSHx: Biliary drain placement by IR at [facility], Prostate surgery, Thyroidectomy, cardiac stenting Allergies: NKDA Social Hx: lives with son Ex-smoker stopped 25 years ago No EtOH or illicit drug use Active Medications Ferrous Sulfate (Feosol) 324 mg PO DAILY [facility] Last Admin: 06/12/17 09:38 Dose: Not Given Sodium Chloride (Sodium Chloride 0.9%) 1,000 mls @ 75 mls/hr IV .[id number] [facility] Last Admin: 06/12/17 05:20 Dose: 75 mls/hr Insulin Human Lispro (Humalog Low) 0 units SC ACHS [facility] PRN Reason: Protocol Last Admin: 06/12/17 11:30 Dose: Not Given Levothyroxine Sodium (Synthroid) 100 mcg PO 0600 [facility] Last Admin: 06/12/17 06:58 Dose: 100 mcg Ondansetron HCl (Zofran Inj) 4 mg IVP Q6H PRN PRN Reason: Nausea/Vomiting Pantoprazole Sodium (Protonix Ec Tab) 20 mg PO 0600 [facility] Last Admin: 06/12/17 06:58 Dose: 20 mg Polyethylene Glycol (Miralax) 17 gm PO DAILY PRN PRN Reason: Constipation Family Hx: none given ROS: No fevers, chills, nausea, vomiting, diarrhea, headaches, dizziness, chest pain , abdominal pain, melena, hematuria, hematemesis, hematochezia, depression, anxiety, diarrhea. Past Patient History - Infectious Disease Hx of Infectious Diseases: None - Past Social History Smoking Status: Never Smoked - CARDIAC Hx Cardiac Disorders: Yes Hx Cardia Arrhythmia: Yes Hx Circulatory Problems: Yes Hx Hypercholesterolemia: Yes Hx Hypertension: Yes Hx Peripheral Edema: Yes - PULMONARY Hx Respiratory Disorders: No - NEUROLOGICAL Hx Neurological Disorder: No - HEENT Hx HEENT Problems: Yes - RENAL Hx Chronic Kidney Disease: No - ENDOCRINE/METABOLIC Hx Endocrine Disorders: Yes Hx Diabetes Mellitus Type 2: Yes - HEMATOLOGICAL/ONCOLOGICAL Hx Cancer: Yes Hx Chemotherapy: Yes - INTEGUMENTARY Hx Dermatological Problems: No - MUSCULOSKELETAL/RHEUMATOLOGICAL Hx Musculoskeletal Disorders: Yes Hx Back Pain: Yes Hx Falls: No - GASTROINTESTINAL Hx Gastrointestinal Disorders: Yes Hx Liver Failure: Yes Other/Comment: Biliary Drain placed one month ago 05/2017 - GENITOURINARY/GYNECOLOGICAL Hx Prostate Problems: Yes - PSYCHIATRIC Hx Psychophysiologic Disorder: No Hx Substance Use: No - SURGICAL HISTORY Hx Surgeries: No Hx Cardiac Catheterization: Yes Hx Coronary Stent: Yes - ANESTHESIA Hx Anesthesia: Yes Hx Anesthesia Reactions: Yes Hx Malignant Hyperthermia: No Meds Allergies/Adverse Reactions: Allergies Allergy/AdvReac Type Severity Reaction Status Date / Time No Known Allergies Allergy Verified 06/11/17 23:34 - Medications Medications: Current Medications Ferrous Sulfate (Feosol) 324 mg PO DAILY [facility] Last Admin: 06/12/17 09:38 Dose: Not Given Sodium Chloride (Sodium Chloride 0.9%) 1,000 mls @ 75 mls/hr IV .[id number] [facility] Last Admin: 06/12/17 05:20 Dose: 75 mls/hr Insulin Human Lispro (Humalog Low) 0 units SC ACHS [facility] PRN Reason: Protocol Last Admin: 06/12/17 11:30 Dose: Not Given Levothyroxine Sodium (Synthroid) 100 mcg PO 0600 [facility] Last Admin: 06/12/17 06:58 Dose: 100 mcg Ondansetron HCl (Zofran Inj) 4 mg IVP Q6H PRN PRN Reason: Nausea/Vomiting Pantoprazole Sodium (Protonix Ec Tab) 20 mg PO 0600 [facility] Last Admin: 06/12/17 06:58 Dose: 20 mg Polyethylene Glycol (Miralax) 17 gm PO DAILY PRN PRN Reason: Constipation Physical Exam - Constitutional Appears: Non-toxic, No Acute Distress, Chronically Ill - Head Exam Head Exam: ATRAUMATIC, NORMOCEPHALIC - Eye Exam Eye Exam: EOMI, PERRL Pupil Exam: NORMAL ACCOMODATION, PERRL - ENT Exam ENT Exam: Mucous Membranes Moist, Normal External Ear Exam, TM's Normal Bilaterally - Neck Exam Neck exam: Positive for: Full Rom, Normal Inspection - Respiratory Exam Respiratory Exam: Clear to Auscultation Bilateral, NORMAL BREATHING PATTERN. absent: Rales, Rhonchi, Wheezes - Cardiovascular Exam Cardiovascular Exam: REGULAR RHYTHM, RRR, +S1, +S2 - GI/Abdominal Exam GI & Abdominal Exam: Normal Bowel Sounds, Soft. absent: Distended, Tenderness Additional comments: right upper quadrant has biliary drain (secured by stitch) emerging, light- yellow discharge staining dressing, no active bleeding from site, no expressed blood/pus/discharge with pressure at site. - Extremities Exam Extremities exam: Positive for: full ROM, normal inspection. Negative for: joint swelling, pedal edema - Neurological Exam Neurological exam: Alert, CN II-XII Intact, Oriented x3 - Psychiatric Exam Psychiatric exam: Normal Affect, Normal Mood - Skin Skin Exam: Intact, Normal Color Results - Vital Signs Recent Vital Signs: Last Vital Signs Temp 98.5 F 06/12/17 14:10 Pulse 65 06/12/17 14:10 Resp 14 06/12/17 14:10 BP 111/71 06/12/17 14:10 Pulse Ox 99 06/12/17 14:10 - Labs Result Diagrams: 06/12/17 07:50 06/12/17 07:50 Labs: Laboratory Results - last 24 hr 06/12/17 06/12/17 06/12/17 07:50 07:50 07:50 WBC 7.7 RBC 3.63 Hgb 10.9 L Hct 32.9 L MCV 90.6 MCH 30.0 MCHC 33.1 RDW 16.5 H Plt Count 305 MPV 9.2 Gran % 65.5 Lymph % (Auto) 24.2 [place] % (Auto) 8.4 H Eos % (Auto) 1.8 Baso % (Auto) 0.1 Gran # 5.04 Lymph # (Auto) 1.9 [place] # (Auto) 0.7 H Eos # (Auto) 0.1 Baso # (Auto) 0.01 PT 12.7 H INR 1.10 H APTT 27.5 Sodium 139 Potassium 3.5 L Chloride 105 Carbon Dioxide 24 Anion Gap 13 BUN 21 Creatinine 0.9 Est GFR ( Amer) > 60 Est GFR (Non-Af Amer) > 60 Random Glucose 73 Calcium 8.3 L Phosphorus 3.5 Magnesium 1.9 Total Bilirubin 2.6 H Direct Bilirubin 2.3 H AST 59 ALT 78 H Alkaline Phosphatase 104 Total Protein 5.6 L Albumin 3.0 Globulin 2.6 Albumin/Globulin Ratio 1.2 Procalcitonin 06/12/17 07:50 WBC RBC Hgb Hct MCV MCH MCHC RDW Plt Count MPV Gran % Lymph % (Auto) [place] % (Auto) Eos % (Auto) Baso % (Auto) Gran # Lymph # (Auto) [place] # (Auto) Eos # (Auto) Baso # (Auto) PT INR APTT Sodium Potassium Chloride Carbon Dioxide Anion Gap BUN Creatinine Est GFR ( Amer) Est GFR (Non-Af Amer) Random Glucose Calcium Phosphorus Magnesium Total Bilirubin Direct Bilirubin AST ALT Alkaline Phosphatase Total Protein Albumin Globulin Albumin/Globulin Ratio Procalcitonin 0.13 L Assessment & Plan - Assessment and Plan (Free Text) Assessment: 72 yo male with yellow drainage from biliary drain site. The patient denies any other symptoms that includes fevers, pain, chills, fatigue at this time. There is no leukocytosis. He is actively being treated with chemotherapy. Possible tap of a mass vs absces of the posterior right lobe of the liver. Started on Zosyn for antibiotic coverage at this time. Given lack of objective symptoms, would maintain on Zosyn for now. Cultures of the drainage with awareness that skin organism can growth from those cultures and would not necessarily mean that the patient has a fulminate infection. Monitor WBC. Noted that the patient's immune response can be altered as he is on chemotherapy. Supportive care. Thank you for allowing me to participate in the care of the this patient, we will follow with you.
--- NOTE | 2017-06-12 18:55 | CARD ---
APPROVED REPORT EKG Measurement Heart [id number] <Conclusion> Normal sinus rhythm Left axis deviation Abnormal ECG
--- NOTE | 2017-06-12 20:58 | CT ---
PROCEDURE: CT-guided hepatic abscess drainage. HISTORY: Cholangiocarcinoma. Biliary obstruction. Recent external drain placement. New subhepatic collection and perihepatic fluid. Evaluate for biloma-abscess PHYSICIAN(S): Duarte Guerra MD. TECHNIQUE: The relative risks and indications for the procedure were explained to the patient through an spanish interpreter/translator and informed consent obtained. The patient was placed in a slight left decubitus position on the CT scanner preliminary images the upper abdomen performed. This revealed a small amount of perihepatic fluid and a 5.5 x 9 cm fluid collection in the subhepatic fossa. A right lateral approach was selected the area prepped and draped usual sterile fashion. Conscious sedation monitoring were provided throughout the procedure by a nurse. A 19 gauge needle was advanced into the collection and 3 cc of bloody fluid aspirated. A 0.035 guidewire was coiled in the collection. Sequential dilatation was performed with subsequent placement of 14 Yoruba pigtail drain. Approximately 40 cc oval blood were aspirated. A specimen was sent for culture. IMPRESSION: 1. CT-guided subhepatic hematoma drainage. A specimen was sent for culture.
--- NOTE | 2017-06-12 21:02 | VASCULAR ---
PROCEDURE: 1. Biliary tube revision. HISTORY: Cholangiocarcinoma with biliary obstruction. Previously placed external biliary drain at outside institution. Bile leak with subhepatic hematoma. Change to internal/external biliary drain. PHYSICIAN(S): Duarte Guerra MD. TECHNIQUE: The relative risks and indications of the procedure were explained to the patient through an shirt folder and consent obtained. The patient was placed supine on the arteriogram table and the external biliary drain prepped and draped usual sterile fashion. Conscious sedation monitoring were provided throughout the procedure by a nurse. Contrast was injected via the external biliary drain a cholangiogram performed. A 0.035 glidewire was coiled in the intrahepatic biliary system. The old drain was removed. A 5 Indian bearing sting catheter advanced over the Glidewire. There is a malignant appearing obstruction 2-3 cm from the confluence. The obstruction is 2-3 cm in length. CBD is otherwise normal in appearance. The malleolus structure was crossed with angled glidewire and 5 Indian catheter. Exchange is made for 0.035 Amplatz wire in the duodenum. Sequential dilatation was performed with subsequent placement of a 14 Indian internal/external biliary drain. This extends from the right intrahepatic bile ducts to the duodenum. The catheter was flushed and secured. The patient tolerated the procedure well. FINDINGS: There is severe intrahepatic bile dilatation. A malignant obstruction 3 cm from the confluence is seen. This is short obstruction 2-3 cm in length. The CBD distally is normal. IMPRESSION: 1.Focal malignant obstruction 3 cm beneath the confluence. 2. Successful conversion to a 14 Indian internal/external biliary drain.
[2017-06-13] MEDS: Insulin Lispro (humaLOG) LOW Coverage SC SCH ×5 (00:02→21:33)
[2017-06-13] MEDS: Piperacillin/Tazobact 3.375 gm 100 ML IVPB SCH ×5 (00:11→23:01)
[2017-06-13] MEDS: Pantoprazole 20 mg EC Tab PO SCH (05:42)
[2017-06-13] MEDS: Levothyroxine 100 MCG TAB PO SCH (05:42)
[2017-06-13 06:57] LABS: EOS # 0.1 (0.0-0.7); EOS % 1.5 % (1.5-5.0); GRAN # 3.76 (1.4-6.5); GRAN % 68.7 % (50.0-68.0); HEMOGLOBIN 11.3 g/dL (14.0-18.0); LYMPH # 1.3 (1.2-3.4); LYMPH % 23.6 % (22.0-35.0); MEAN CELL VOLUME 90.6 fl (80.0-105.0); MEAN CORPUSCULAR HEMOGLOBIN 29.4 pg (25.0-35.0); MEAN CORPUSCULAR HGB CONC 32.4 g/dl (31.0-37.0); MEAN PLATELET VOLUME 9.6 fl (7.0-11.0); MONO # 0.3 (0.1-0.6); MONO % 6.2 % (1.0-6.0); RBC 3.85 10^6/uL (3.5-6.1); RED CELL DISTRIBUTION WIDTH 16.5 % (11.5-14.5); WHITE BLOOD COUNT 5.5 10^3/ul (4.5-11.0)
[2017-06-13 07:01] LABS: ALBUMIN 3.1 g/dL (3.0-4.8); ALT/SGPT 78 U/L (7-56); AST/SGOT 85 U/L (17-59); BILIRUBIN,DIRECT 2.2 mg/dL (0.0-0.4); BLOOD UREA NITROGEN 18 mg/dL (7-21); CALCIUM 8.4 mg/dL (8.4-10.5); GFR AFRICAN-AMERICAN > 60; GFR NON-AFRICAN AMERICAN > 60
[2017-06-13] MEDS ORDERED: HYDROmorphone 0.5 mg/0.5 ml ISec IVP PRN (08:19)
[2017-06-13] MEDS ORDERED: HYDROmorphone 0.5 mg/0.5 ml ISec IVP STA (08:21)
[2017-06-13] MEDS: Dextrose 5%/0.9% NS 1,000 ML IV SCH ×3 (08:41→20:00)
[2017-06-13] MEDS ORDERED: Enoxaparin 40 mg Syringe SC SCH (10:00)
--- NOTE | 2017-06-13 11:02 | CP.PCM.PN ---
<Howard Maddox - Last Filed: 06/13/17 10:59> Subjective - Date & Time of Evaluation Date of Evaluation: 06/13/17 Time of Evaluation: 10:59 - Subjective Subjective: Medicine Progress Note Pt seen and examined at bedside. No acute overnight events. Pt complaining of lower back pain. Pt had successful biliary tube revision yesterday. Pt denies CP , SOB, n/v/d, abdominal pain, fever, chills, HALL, or dizziness. Objective - Vital Signs/Intake and Output Vital Signs (last 24 hours): Temp Pulse Resp BP Pulse Ox 97.4 F L 74 20 130/77 98 06/13/17 07:45 06/13/17 07:45 06/13/17 07:45 06/13/17 07:45 06/13/17 07:45 Intake and Output: 06/13/17 06/13/17 06:59 18:59 Intake Total 0 Balance 0 - Medications Medications: Current Medications Ferrous Sulfate (Feosol) 324 mg PO DAILY [facility] Last Admin: 06/13/17 10:25 Dose: Not Given Hydromorphone HCl (Dilaudid) 1 mg IVP Q6H PRN PRN Reason: Pain, severe (8-10) Dextrose/Sodium Chloride (Dextrose 5%/0.9% Ns 1000 Ml) 1,000 mls @ 75 mls/hr IV .[id number] [facility] Last Admin: 06/13/17 08:44 Dose: 75 mls/hr Piperacillin Sod/Tazobactam Sod (Zosyn 3.375 In Ns 100ml) 100 mls @ 200 mls/hr IVPB Q6 [facility] PRN Reason: Protocol Last Admin: 06/13/17 05:42 Dose: 200 mls/hr Insulin Human Lispro (Humalog Low) 0 units SC ACHS [facility] PRN Reason: Protocol Last Admin: 06/13/17 08:42 Dose: Not Given Levothyroxine Sodium (Synthroid) 100 mcg PO 0600 [facility] Last Admin: 06/13/17 05:42 Dose: 100 mcg Ondansetron HCl (Zofran Inj) 4 mg IVP Q6H PRN PRN Reason: Nausea/Vomiting Pantoprazole Sodium (Protonix Ec Tab) 20 mg PO 0600 [facility] Last Admin: 06/13/17 05:42 Dose: 20 mg Polyethylene Glycol (Miralax) 17 gm PO DAILY PRN PRN Reason: Constipation - Labs Labs: 06/13/17 05:30 06/13/17 05:30 PT 12.7 SECONDS (9.4-12.5) H 06/12/17 07:50 INR 1.10 (0.93-1.08) H 06/12/17 07:50 APTT 27.5 Seconds (25.1-36.5) 06/12/17 07:50 - Constitutional Appears: No Acute Distress - Head Exam Head Exam: NORMAL INSPECTION - Eye Exam Eye Exam: Normal appearance - ENT Exam ENT Exam: Normal Exam - Neck Exam Neck Exam: Normal Inspection - Respiratory Exam Respiratory Exam: Clear to Ausculation Bilateral. absent: Rales, Rhonchi, Wheezes - Cardiovascular Exam Cardiovascular Exam: RRR, +S1, +S2. absent: Gallop, Rubs, Murmur - GI/Abdominal Exam GI & Abdominal Exam: Soft. absent: Distended, Guarding, Tenderness, Rebound Additional comments: right upper quadrant has biliary drain, no active bleed, hematoma, erythema, discharge, or tenderness to site - Extremities Exam Extremities Exam: Normal Inspection - Back Exam Back Exam: paraspinal tenderness - Neurological Exam Neurological Exam: Alert, Awake, Oriented x3 - Psychiatric Exam Psychiatric exam: Normal Affect, Normal Mood - Skin Skin Exam: Dry, Intact, Normal Color, Warm Assessment and Plan - Assessment and Plan (Free Text) Assessment: This is a 72 yo [place]-speaking M with PMH of cholangiocarcinoma with liver mets , hypertension, diabetes, CAD s/p stents, obstructive jaundice, liver mass, and intrahepatic ducal dilatation s/p biliary drain placement, presents to the emergency department for evaluation of the drainage site for possible purulent drainage. He also had CT abd/pelvis findings concerning for possible hepatic abscess. Plan: 1. Biliary drain site leak - bile leak vs purulent discharge vs serosanguinous discharge - given lack of systemic symptoms, lack of fever/leukocytosis, stable mildly- elevated LFTs; unlikely hepatic abscess - prior CT with PO/IV contrast notable for hepatic mets, 6x10cm posterior right lobe; again noted on admission CT but read as possible abscess, still 6x10cm - F/u cultures - IR consulted - CT guided drainage of hematoma and successful biliary tube revision - ID consulted - maintain Zosyn for now 2. Cholangiocarcinoma with liver mets - Heme-onc consulted, appreciate all recs 3. Lower back pain - Dilaudid prn 4. Hx Thyroidectomy - continue synthroid 5. DM - Lispro low sliding scale with ACHS GI/DVT PPx - Protonix - Lovenox Patient seen, reviewed, and discussed with attending, Dr. Morales. Oneil Maddox, PGY1 <Gómez Morales - Last Filed: 06/13/17 15:04> Objective - Vital Signs/Intake and Output Vital Signs (last 24 hours): Temp Pulse Resp BP Pulse Ox 97.4 F L 74 20 130/77 98 06/13/17 07:45 06/13/17 07:45 06/13/17 07:45 06/13/17 07:45 06/13/17 07:45 Intake and Output: 06/13/17 06/13/17 06:59 18:59 Intake Total 0 Output Total 600 Balance 0 -600 - Medications Medications: Current Medications Ferrous Sulfate (Feosol) 324 mg PO DAILY [facility] Last Admin: 06/13/17 10:25 Dose: Not Given Hydromorphone HCl (Dilaudid) 1 mg IVP Q6H PRN PRN Reason: Pain, severe (8-10) Dextrose/Sodium Chloride (Dextrose 5%/0.9% Ns 1000 Ml) 1,000 mls @ 75 mls/hr IV .[id number] [facility] Last Admin: 06/13/17 08:44 Dose: 75 mls/hr Piperacillin Sod/Tazobactam Sod (Zosyn 3.375 In Ns 100ml) 100 mls @ 200 mls/hr IVPB Q6 [facility] PRN Reason: Protocol Last Admin: 06/13/17 12:54 Dose: 200 mls/hr Insulin Human Lispro (Humalog Low) 0 units SC ACHS [facility] PRN Reason: Protocol Last Admin: 06/13/17 12:44 Dose: Not Given Levothyroxine Sodium (Synthroid) 100 mcg PO 0600 [facility] Last Admin: 06/13/17 05:42 Dose: 100 mcg Ondansetron HCl (Zofran Inj) 4 mg IVP Q6H PRN PRN Reason: Nausea/Vomiting Pantoprazole Sodium (Protonix Ec Tab) 20 mg PO 0600 [facility] Last Admin: 06/13/17 05:42 Dose: 20 mg Polyethylene Glycol (Miralax) 17 gm PO DAILY PRN PRN Reason: Constipation - Labs Labs: 06/13/17 05:30 06/13/17 05:30 PT 12.7 SECONDS (9.4-12.5) H 06/12/17 07:50 INR 1.10 (0.93-1.08) H 06/12/17 07:50 APTT 27.5 Seconds (25.1-36.5) 06/12/17 07:50 Attending/Attestation - Attestation I have personally seen and examined this patient.: Yes I have fully participated in the care of the patient.: Yes I have reviewed all pertinent clinical information, including history, physical exam and plan: Yes Notes (Text): 06/13/17 15:03 Attending note; patient seen and examined with resident. This is a 72 year old [place]-speaking [place] male with PMH of cholangiocarcinoma with liver mets, hypertension, diabetes, CAD s/p stents, obstructive jaundice, liver mass, and intrahepatic ducal dilatation s/p biliary drain placement is admitted for biliary drain leak. Denies any fevers, chills. Denies any nausea, vomiting. Patient is getting chemotherapy with cisplatin for the past 2 weeks.Last dose was 2 days ago. status post hematoma evacuation and drainage. Drain has reddish fluid. status post biliary stent replacement. drain has greenish bile. no signs of infection; continue IV Zosyn. Culture sent. ID evaluation appreciated. Pain; continue IV Dilaudid for pain management. Started on diet. Monitor closely. Prognosis poor. The diagnosis and follow-up plan discussed with patient in detail.
[2017-06-13] MEDS: HYDROmorphone 1 mg/ml ISec IVP PRN (17:42)
--- NOTE | 2017-06-13 20:14 | CP.PCM.PN ---
Subjective - Date & Time of Evaluation Date of Evaluation: 06/13/17 Time of Evaluation: 17:00 - Subjective Subjective: Infectious Disease Follow Up: June 13, 2017 72 yo male with findings of yellow discharge on bandages around the biliary drain. His PMHx includes cholangiocarcinoma with liver mets, hypertension, diabetes, CAD s/p stents, obstructive jaundice, liver mass, and intrahepatic ducal dilatation s/p biliary drain placement. The patient with no fever or chills. Discharge was not bloody and did not appear to have pus. Site is NOT tender or erythematous. Cultures taken to date negative at 24 hours. Patient appears comfortable currently. Objective - Vital Signs/Intake and Output Vital Signs (last 24 hours): Temp Pulse Resp BP Pulse Ox 98.1 F 47 L 20 121/76 99 06/13/17 16:00 06/13/17 16:00 06/13/17 16:00 06/13/17 16:00 06/13/17 16:00 Intake and Output: 06/13/17 06/14/17 18:59 06:59 Intake Total 680 Output Total 1000 Balance -320 - Medications Medications: Current Medications Ferrous Sulfate (Feosol) 324 mg PO DAILY [facility] Last Admin: 06/13/17 10:25 Dose: Not Given Hydromorphone HCl (Dilaudid) 1 mg IVP Q6H PRN PRN Reason: Pain, severe (8-10) Last Admin: 06/13/17 17:42 Dose: 1 mg Dextrose/Sodium Chloride (Dextrose 5%/0.9% Ns 1000 Ml) 1,000 mls @ 75 mls/hr IV .[id number] [facility] Last Admin: 06/13/17 08:44 Dose: 75 mls/hr Piperacillin Sod/Tazobactam Sod (Zosyn 3.375 In Ns 100ml) 100 mls @ 200 mls/hr IVPB Q6 [facility] PRN Reason: Protocol Last Admin: 06/13/17 17:36 Dose: 200 mls/hr Insulin Human Lispro (Humalog Low) 0 units SC ACHS [facility] PRN Reason: Protocol Last Admin: 06/13/17 17:13 Dose: Not Given Levothyroxine Sodium (Synthroid) 100 mcg PO 0600 [facility] Last Admin: 06/13/17 05:42 Dose: 100 mcg Ondansetron HCl (Zofran Inj) 4 mg IVP Q6H PRN PRN Reason: Nausea/Vomiting Pantoprazole Sodium (Protonix Ec Tab) 20 mg PO 0600 [facility] Last Admin: 06/13/17 05:42 Dose: 20 mg Polyethylene Glycol (Miralax) 17 gm PO DAILY PRN PRN Reason: Constipation - Labs Labs: 06/13/17 05:30 06/13/17 05:30 PT 12.7 SECONDS (9.4-12.5) H 06/12/17 07:50 INR 1.10 (0.93-1.08) H 06/12/17 07:50 APTT 27.5 Seconds (25.1-36.5) 06/12/17 07:50 - Constitutional Appears: Non-toxic, No Acute Distress, Chronically Ill - Head Exam Head Exam: ATRAUMATIC, NORMOCEPHALIC - Eye Exam Eye Exam: EOMI, PERRL Pupil Exam: NORMAL ACCOMODATION, PERRL - ENT Exam ENT Exam: Mucous Membranes Moist, Normal External Ear Exam, TM's Normal Bilaterally - Neck Exam Neck Exam: Full ROM, Normal Inspection - Respiratory Exam Respiratory Exam: Clear to Ausculation Bilateral, NORMAL BREATHING PATTERN. absent: Rales, Rhonchi, Wheezes - Cardiovascular Exam Cardiovascular Exam: REGULAR RHYTHM, RRR, +S1, +S2 - GI/Abdominal Exam GI & Abdominal Exam: Soft, Normal Bowel Sounds. absent: Distended, Tenderness Additional comments: right upper quadrant has biliary drain (secured by stitch) emerging, no active bleeding from site, no expressed blood/pus/discharge with pressure at site. - Extremities Exam Extremities Exam: Full ROM, Normal Inspection - Neurological Exam Neurological Exam: Alert, Awake, CN II-XII Intact, Oriented x3 - Psychiatric Exam Psychiatric exam: Normal Affect, Normal Mood - Skin Skin Exam: Intact, Normal Color Assessment and Plan - Assessment and Plan (Free Text) Assessment: 72 yo male with yellow drainage from biliary drain site. The patient denies any other symptoms that includes fevers, pain, chills, fatigue at this time. There is no leukocytosis. He is actively being treated with chemotherapy. Possible tap of a mass vs absces of the posterior right lobe of the liver. Started on Zosyn for antibiotic coverage at this time. Given lack of objective symptoms, would maintain on Zosyn for now. Cultures of the drainage with awareness that skin organism can growth from those cultures and would not necessarily mean that the patient has a fulminate infection. Monitor WBC. Noted that the patient's immune response can be altered as he is on chemotherapy. Subhepatic hematoma drainage by Dr. Duarte Guerra yesterday. Supportive care. Local wound care. Thank you for allowing me to participate in the care of the this patient, we will follow with you.
--- NOTE | 2017-06-14 00:29 | PN ---
DATE: 06/13/2017 ONCOLOGY PROGRESS NOTE LOCATION: The patient is in room 361, bed 2. SUBJECTIVE: A 72-year-old male, well known to us from prior visits to the office, has a diagnosis of metastatic locally-advanced cholangiocarcinoma with main disease in the common bile duct above the bifurcation in the hepatic duct with liver metastasis without any overt metastasis outside the liver in the intraabdominal cavity based on the CAT scan, had a drain which was inadequate and was leaking. The patient was admitted to the hospital to drain a subcapsular hematoma beneath the liver from the prior drain along with exchange of the drain that was there which was an 8-Russian catheter, was converted to an internal-external drain which was 14-Russian and bigger, larger with multiple holes so that drainage will be more appropriate and complete and allow us to continue to treat the patient and eventually cap off the external drain once it is draining completely internally. The patient is currently on outpatient chemotherapy with single agent nikolai. Plan is to add drugs such as gemcitabine plus or minus drug such as or oxaliplatin based upon his creatinine improving and more importantly his total bilirubin going down to less than 2.4. Objectively, the patient was thanking me profusely that he has been feeling better. He was examined at bedside. He had no acute events, still complains of some lower back pain, but he is feeling more comfortable with drains in place. Denies any chest pain, shortness of breath, nausea, vomiting, fevers, chills, headaches or dizziness. PHYSICAL EXAMINATION GENERAL: The patient is examined in bed. VITAL SIGNS: Stable. T-max is 97.4, pulse is 74, respirations 20, blood pressure 130/77, pulse ox is 98% on room air. HEENT: Head is normocephalic and atraumatic. Conjunctivae pale. Sclerae is icteric. Examination of the oropharynx reveals no oropharyngeal lesions. Tongue is coated and dry. NECK: Supple. There is no adenopathy. LUNGS: Clear to percussion and auscultation. CARDIOVASCULAR: Examination of cardiovascular system reveals S1, S2 to be normal. No gallop or murmurs heard. ABDOMEN: Soft, nontender. The patient has 2 drains coming out from the right upper quadrant, one is the drain which is the drain from where the subcapsular hematoma was with very minimal drainage. The other one is the internal-external drain with clear greenish biliary drainage at this time. No other masses are felt on abdominal exam. EXTREMITIES: Reveal no cyanosis, clubbing, or edema. Examination of the back reveals some paraspinal tenderness. NEUROLOGIC: Higher functions are normal. No focal deficits are noted on neurologic exam. SKIN: Skin turgor is normal. No skin lesions are noted. MEDICATIONS: The patient's medications were reviewed, is on iron, ferrous sulfate 324 mg daily, Dilaudid 1 mg every 6 hours p.r.n. He is on IV fluids of normal saline and D5 half normal saline at 75 mL/hour. He is on piperacillin as per protocol every 6 hours and insulin coverage. He is on Synthroid 100 mcg daily, Zofran 4 mg p.o. every 6 hours p.r.n., pantoprazole 20 mg p.o. once a day, MiraLax 17 g p.o. daily. LABORATORY DATA: Reveals a white count of 5.5, hemoglobin 11.3, hematocrit 34.9, platelet count of 279,000. Sodium is 142, K is 4.5, chloride is 109, CO2 is 23, BUN is 18, creatinine 0.9. Blood sugar is 94. PT INR within normal limits. ASSESSMENT NOTES AND PLAN: A 72-year-old Russian speaking [place] male with history of stage IV cholangiocarcinoma with liver metastasis, status post drainage of a subcapsular hematoma, status post conversion to a 14-gauge internal-external drain draining into the duodenum, coronary artery disease, status post stents, history of hypertension. He has now creatinine improving. Plan is to assess the patient for continuation of his chemotherapy as an outpatient. The patient has also been set up to see Dr. Murphy Barillas in the [facility], who is the head of Hepatology to see any other guidelines for the management of his metastatic hepatobiliary cancer. At this point in time, our plan is to continue nikolai, add gemcitabine plus or minus any of the other drugs that may be feasible including Erlotinib. We need to sent the tumor tissue for further testing for next generation sequencing including testing for small molecular inhibitor such as Imatinib to check for EGFR wild type mutation. I have discussed all findings in detail with the patient. I spoke to the family attending, Dr. Morales in detail as well. Will continue to follow the patient while the patient is in the hospital. Overall prognosis is guarded, but I am trying to be optimistic with the patient's family. Time spent with the patient greater than 45 minutes; correlating all the information,talking to the patient's son and reviewing all the images. Michael Headley MD
[2017-06-14] MEDS: HYDROmorphone 1 mg/ml ISec IVP PRN ×3 (03:56→21:04)
[2017-06-14] MEDS: Piperacillin/Tazobact 3.375 gm 100 ML IVPB SCH ×3 (05:28→17:51)
[2017-06-14] MEDS: Levothyroxine 100 MCG TAB PO SCH (05:28)
[2017-06-14] MEDS: Pantoprazole 20 mg EC Tab PO SCH (05:29)
[2017-06-14 08:26] LABS: BASO # 0.01 K/mm3 (0.0-2.0); BASO % 0.1 % (0.0-3.0); EOS # 0.1 (0.0-0.7); EOS % 1.4 % (1.5-5.0); GRAN # 7.24 (1.4-6.5); GRAN % 77.5 % (50.0-68.0); HEMOGLOBIN 11.5 g/dL (14.0-18.0); LYMPH # 1.4 (1.2-3.4); LYMPH % 15.2 % (22.0-35.0); MEAN CELL VOLUME 90.5 fl (80.0-105.0); MEAN CORPUSCULAR HEMOGLOBIN 29.5 pg (25.0-35.0); MEAN CORPUSCULAR HGB CONC 32.6 g/dl (31.0-37.0); MEAN PLATELET VOLUME 9.4 fl (7.0-11.0); MONO # 0.5 (0.1-0.6); MONO % 5.8 % (1.0-6.0); RBC 3.9 10^6/uL (3.5-6.1); RED CELL DISTRIBUTION WIDTH 16.4 % (11.5-14.5); WHITE BLOOD COUNT 9.3 10^3/ul (4.5-11.0)
[2017-06-14] MEDS: Insulin Lispro (humaLOG) LOW Coverage SC SCH ×4 (08:29→21:49)
[2017-06-14 08:50] LABS: ALBUMIN 2.9 g/dL (3.0-4.8); ALT/SGPT 84 U/L (7-56); AST/SGOT 52 U/L (17-59); BLOOD UREA NITROGEN 13 mg/dL (7-21); CALCIUM 8.3 mg/dL (8.4-10.5); GFR AFRICAN-AMERICAN > 60; GFR NON-AFRICAN AMERICAN > 60
[2017-06-14] MEDS: POLYETHYLENE GLYCOL 3350 17 GM/Dose PACKET PO SCH (09:36)
--- NOTE | 2017-06-14 12:20 | CP.PCM.PN ---
<Howard Maddox - Last Filed: 06/14/17 12:16> Subjective - Date & Time of Evaluation Date of Evaluation: 06/14/17 Time of Evaluation: 12:16 - Subjective Subjective: Medicine Progress Note Pt seen and examined at bedside. No acute overnight events. Patient states that back pain is improved with medications. Pt denied CP, SOB, n/v/d, abdominal pain , fever, chills, HALL, or dizziness. Objective - Vital Signs/Intake and Output Vital Signs (last 24 hours): Temp Pulse Resp BP Pulse Ox 98 F 85 20 114/76 97 06/14/17 07:36 06/14/17 07:36 06/14/17 07:36 06/14/17 07:36 06/14/17 07:36 Intake and Output: 06/14/17 06/14/17 06:59 18:59 Intake Total 240 Output Total 1625 Balance -1385 - Medications Medications: Current Medications Docusate Sodium (Colace) 100 mg PO BID [facility] Last Admin: 06/14/17 09:36 Dose: 100 mg Ferrous Sulfate (Feosol) 324 mg PO DAILY [facility] Last Admin: 06/14/17 09:36 Dose: 324 mg Hydromorphone HCl (Dilaudid) 1 mg IVP Q6H PRN PRN Reason: Pain, severe (8-10) Last Admin: 06/14/17 03:56 Dose: 1 mg Piperacillin Sod/Tazobactam Sod (Zosyn 3.375 In Ns 100ml) 100 mls @ 200 mls/hr IVPB Q6 [facility] PRN Reason: Protocol Last Admin: 06/14/17 05:28 Dose: 200 mls/hr Insulin Human Lispro (Humalog Low) 0 units SC ACHS [facility] PRN Reason: Protocol Last Admin: 06/14/17 08:29 Dose: Not Given Levothyroxine Sodium (Synthroid) 100 mcg PO 0600 [facility] Last Admin: 06/14/17 05:28 Dose: 100 mcg Ondansetron HCl (Zofran Inj) 4 mg IVP Q6H PRN PRN Reason: Nausea/Vomiting Oxycodone HCl (Oxycodone Immediate Release Tab) 5 mg PO Q6H PRN PRN Reason: Pain, moderate (4-7) Pantoprazole Sodium (Protonix Ec Tab) 20 mg PO 0600 [facility] Last Admin: 06/14/17 05:29 Dose: 20 mg Polyethylene Glycol (Miralax) 17 gm PO DAILY [facility] Last Admin: 06/14/17 09:36 Dose: 17 gm - Labs Labs: 06/14/17 08:22 06/14/17 08:22 PT 12.7 SECONDS (9.4-12.5) H 06/12/17 07:50 INR 1.10 (0.93-1.08) H 06/12/17 07:50 APTT 27.5 Seconds (25.1-36.5) 06/12/17 07:50 - Constitutional Appears: No Acute Distress, Chronically Ill - Head Exam Head Exam: NORMAL INSPECTION - Eye Exam Eye Exam: Normal appearance Pupil Exam: NORMAL ACCOMODATION - ENT Exam ENT Exam: Normal Exam - Neck Exam Neck Exam: Normal Inspection - Respiratory Exam Respiratory Exam: Clear to Ausculation Bilateral. absent: Decreased Breath Sounds, Rales, Rhonchi, Wheezes, Respiratory Distress - Cardiovascular Exam Cardiovascular Exam: RRR, +S1, +S2. absent: Gallop, Rubs, Murmur - GI/Abdominal Exam GI & Abdominal Exam: Soft. absent: Distended, Guarding, Tenderness, Rebound Additional comments: right upper quadrant has biliary drain, no active bleed, hematoma, erythema, discharge, or tenderness to site - Extremities Exam Extremities Exam: Normal Inspection - Back Exam Back Exam: NORMAL INSPECTION - Neurological Exam Neurological Exam: Alert, Awake, CN II-XII Intact, Oriented x3 - Psychiatric Exam Psychiatric exam: Normal Affect, Normal Mood - Skin Skin Exam: Dry, Intact, Normal Color, Warm Assessment and Plan - Assessment and Plan (Free Text) Assessment: This is a 72 yo Dominican-speaking M with PMH of cholangiocarcinoma with liver mets , hypertension, diabetes, CAD s/p stents, obstructive jaundice, liver mass, and intrahepatic ducal dilatation s/p biliary drain placement, presents to the emergency department for evaluation of the drainage site for possible purulent drainage. Plan: 1. Biliary drain site leak - bile leak vs purulent discharge vs serosanguinous discharge - given lack of systemic symptoms, lack of fever/leukocytosis, stable mildly- elevated LFTs; unlikely hepatic abscess - prior CT with PO/IV contrast notable for hepatic mets, 6x10cm posterior right lobe; again noted on admission CT but read as possible abscess, still 6x10cm - Cultures negative after 48 hrs - IR consulted - CT guided drainage of hematoma and successful biliary tube revision - ID consulted - maintain Zosyn for now 2. Cholangiocarcinoma with liver mets - Heme-onc consulted, appreciate all recs 3. Lower back pain - Dilaudid and oxycodone prn - Colace and Miralax 4. Hx Thyroidectomy - continue synthroid 5. DM - Lispro low sliding scale with ACHS GI/DVT PPx - Protonix - Lovenox Patient seen, reviewed, and discussed with attending, Dr. Morales. Oneil Maddox, PGY1 <Gómez Morales - Last Filed: 06/14/17 12:22> Objective - Vital Signs/Intake and Output Vital Signs (last 24 hours): Temp Pulse Resp BP Pulse Ox 98 F 85 20 114/76 97 06/14/17 07:36 06/14/17 07:36 06/14/17 07:36 06/14/17 07:36 06/14/17 07:36 Intake and Output: 06/14/17 06/14/17 06:59 18:59 Intake Total 240 Output Total 1625 Balance -1385 - Medications Medications: Current Medications Docusate Sodium (Colace) 100 mg PO BID [facility] Last Admin: 06/14/17 09:36 Dose: 100 mg Ferrous Sulfate (Feosol) 324 mg PO DAILY [facility] Last Admin: 06/14/17 09:36 Dose: 324 mg Hydromorphone HCl (Dilaudid) 1 mg IVP Q6H PRN PRN Reason: Pain, severe (8-10) Last Admin: 06/14/17 03:56 Dose: 1 mg Piperacillin Sod/Tazobactam Sod (Zosyn 3.375 In Ns 100ml) 100 mls @ 200 mls/hr IVPB Q6 [facility] PRN Reason: Protocol Last Admin: 06/14/17 05:28 Dose: 200 mls/hr Insulin Human Lispro (Humalog Low) 0 units SC ACHS [facility] PRN Reason: Protocol Last Admin: 06/14/17 08:29 Dose: Not Given Levothyroxine Sodium (Synthroid) 100 mcg PO 0600 [facility] Last Admin: 06/14/17 05:28 Dose: 100 mcg Ondansetron HCl (Zofran Inj) 4 mg IVP Q6H PRN PRN Reason: Nausea/Vomiting Oxycodone HCl (Oxycodone Immediate Release Tab) 5 mg PO Q6H PRN PRN Reason: Pain, moderate (4-7) Pantoprazole Sodium (Protonix Ec Tab) 20 mg PO 0600 [facility] Last Admin: 06/14/17 05:29 Dose: 20 mg Polyethylene Glycol (Miralax) 17 gm PO DAILY [facility] Last Admin: 06/14/17 09:36 Dose: 17 gm - Labs Labs: 06/14/17 08:22 06/14/17 08:22 PT 12.7 SECONDS (9.4-12.5) H 06/12/17 07:50 INR 1.10 (0.93-1.08) H 06/12/17 07:50 APTT 27.5 Seconds (25.1-36.5) 06/12/17 07:50 Attending/Attestation - Attestation I have personally seen and examined this patient.: Yes I have fully participated in the care of the patient.: Yes I have reviewed all pertinent clinical information, including history, physical exam and plan: Yes Notes (Text): 06/14/17 12:21 Attending note; patient seen and examined with resident. This is a 72 year old [place]-speaking [place] male with PMH of cholangiocarcinoma with liver mets, hypertension, diabetes, CAD s/p stents, obstructive jaundice, liver mass, and intrahepatic ducal dilatation s/p biliary drain placement is admitted for biliary drain leak status post hematoma evacuation and drainage. Drain has reddish fluid. status post biliary stent replacement. drain has greenish bile. blood culture, urine culture is negative. Culture from the biliary drain is negative. continue IV Zosyn. Culture sent. ID evaluation appreciated. Pain; continue IV Dilaudid for pain management. pain has improved significantly. started on by mouth oxycodone. Started on diet. Monitor closely. possible discharge home if clinically stable. Prognosis poor. The diagnosis and follow-up plan discussed with patient in detail.
--- NOTE | 2017-06-14 17:25 | CP.PCM.PN ---
Subjective - Date & Time of Evaluation Date of Evaluation: 06/14/17 Time of Evaluation: 12:00 - Subjective Subjective: Infectious Disease Follow Up: June 14, 2017 72 yo male with findings of yellow discharge on bandages around the biliary drain. His PMHx includes cholangiocarcinoma with liver mets, hypertension, diabetes, CAD s/p stents, obstructive jaundice, liver mass, and intrahepatic ducal dilatation s/p biliary drain placement. The patient with no fever or chills. Discharge was not bloody and did not appear to have pus. Site is NOT tender or erythematous. Cultures taken to date negative at 48 hours. Patient appears comfortable currently. Less back pain given medications. Objective - Vital Signs/Intake and Output Vital Signs (last 24 hours): Temp Pulse Resp BP Pulse Ox 99.2 F 82 20 108/59 L 97 06/14/17 16:00 06/14/17 16:00 06/14/17 16:00 06/14/17 16:00 06/14/17 16:00 Intake and Output: 06/14/17 06/14/17 06:59 18:59 Intake Total 240 1100 Output Total 1625 325 Balance -1385 775 - Medications Medications: Current Medications Docusate Sodium (Colace) 100 mg PO BID [facility] Last Admin: 06/14/17 09:36 Dose: 100 mg Ferrous Sulfate (Feosol) 324 mg PO DAILY [facility] Last Admin: 06/14/17 09:36 Dose: 324 mg Hydromorphone HCl (Dilaudid) 1 mg IVP Q6H PRN PRN Reason: Pain, severe (8-10) Last Admin: 06/14/17 13:24 Dose: 1 mg Piperacillin Sod/Tazobactam Sod (Zosyn 3.375 In Ns 100ml) 100 mls @ 200 mls/hr IVPB Q6 [facility] PRN Reason: Protocol Last Admin: 06/14/17 13:23 Dose: 200 mls/hr Insulin Human Lispro (Humalog Low) 0 units SC ACHS [facility] PRN Reason: Protocol Last Admin: 06/14/17 13:00 Dose: Not Given Levothyroxine Sodium (Synthroid) 100 mcg PO 0600 [facility] Last Admin: 06/14/17 05:28 Dose: 100 mcg Ondansetron HCl (Zofran Inj) 4 mg IVP Q6H PRN PRN Reason: Nausea/Vomiting Oxycodone HCl (Oxycodone Immediate Release Tab) 5 mg PO Q6H PRN PRN Reason: Pain, moderate (4-7) Pantoprazole Sodium (Protonix Ec Tab) 20 mg PO 0600 [facility] Last Admin: 06/14/17 05:29 Dose: 20 mg Polyethylene Glycol (Miralax) 17 gm PO DAILY [facility] Last Admin: 06/14/17 09:36 Dose: 17 gm - Labs Labs: 06/14/17 08:22 06/14/17 08:22 PT 12.7 SECONDS (9.4-12.5) H 06/12/17 07:50 INR 1.10 (0.93-1.08) H 06/12/17 07:50 APTT 27.5 Seconds (25.1-36.5) 06/12/17 07:50 - Constitutional Appears: Non-toxic, No Acute Distress, Chronically Ill - Head Exam Head Exam: ATRAUMATIC, NORMOCEPHALIC - Eye Exam Eye Exam: EOMI, PERRL Pupil Exam: NORMAL ACCOMODATION, PERRL - ENT Exam ENT Exam: Mucous Membranes Moist, Normal External Ear Exam, TM's Normal Bilaterally - Neck Exam Neck Exam: Full ROM, Normal Inspection - Respiratory Exam Respiratory Exam: Clear to Ausculation Bilateral, NORMAL BREATHING PATTERN. absent: Rales, Rhonchi, Wheezes - Cardiovascular Exam Cardiovascular Exam: REGULAR RHYTHM, RRR, +S1, +S2 - GI/Abdominal Exam GI & Abdominal Exam: Soft, Normal Bowel Sounds. absent: Distended, Tenderness Additional comments: right upper quadrant has biliary drain (secured by stitch) emerging, no active bleeding from site, no expressed blood/pus/discharge with pressure at site. Drain has been repaired. - Extremities Exam Extremities Exam: Full ROM, Normal Inspection - Neurological Exam Neurological Exam: Alert, Awake, CN II-XII Intact, Oriented x3 - Psychiatric Exam Psychiatric exam: Normal Affect, Normal Mood - Skin Skin Exam: Intact, Normal Color Assessment and Plan - Assessment and Plan (Free Text) Assessment: 72 yo male with yellow drainage from biliary drain site. The patient denies any other symptoms that includes fevers, pain, chills, fatigue at this time. There is no leukocytosis. He is actively being treated with chemotherapy. Possible tap of a mass vs absces of the posterior right lobe of the liver. Started on Zosyn for antibiotic coverage at this time. Given lack of objective symptoms, would maintain on Zosyn for now. Cultures of the drainage with awareness that skin organism can growth from those cultures and would not necessarily mean that the patient has a fulminate infection. Monitor WBC. Noted that the patient's immune response can be altered as he is on chemotherapy. Subhepatic hematoma drainage by Dr. Duarte Guerra. Supportive care. Local wound care. Remains on Zosyn IV. Cultures have been negative. Very poor usp survival. Thank you for allowing me to participate in the care of the this patient, we will follow with you.
[2017-06-15] MEDS: Piperacillin/Tazobact 3.375 gm 100 ML IVPB SCH ×4 (00:16→18:20)
[2017-06-15] MEDS: Levothyroxine 100 MCG TAB PO SCH (05:31)
[2017-06-15] MEDS: Pantoprazole 20 mg EC Tab PO SCH (05:31)
[2017-06-15 06:44] LABS: EOS # 0.2 (0.0-0.7); GRAN # 8.74 (1.4-6.5); GRAN % 81.3 % (50.0-68.0); LYMPH # 1.1 (1.2-3.4); LYMPH % 10.2 % (22.0-35.0); MEAN CELL VOLUME 89.2 fl (80.0-105.0); MEAN CORPUSCULAR HEMOGLOBIN 29.7 pg (25.0-35.0); MEAN CORPUSCULAR HGB CONC 33.3 g/dl (31.0-37.0); MEAN PLATELET VOLUME 9.8 fl (7.0-11.0); MONO # 0.7 (0.1-0.6); MONO % 6.5 % (1.0-6.0); RBC 3.7 10^6/uL (3.5-6.1); RED CELL DISTRIBUTION WIDTH 16.3 % (11.5-14.5); WHITE BLOOD COUNT 10.8 10^3/ul (4.5-11.0)
[2017-06-15 07:38] LABS: ALBUMIN 2.7 g/dL (3.0-4.8); ALT/SGPT 64 U/L (7-56); AST/SGOT 52 U/L (17-59); BILIRUBIN,DIRECT 1.7 mg/dL (0.0-0.4); BLOOD UREA NITROGEN 15 mg/dL (7-21); CALCIUM 7.9 mg/dL (8.4-10.5); GFR AFRICAN-AMERICAN > 60; GFR NON-AFRICAN AMERICAN > 60
[2017-06-15] MEDS ORDERED: Potassium Chloride 20 mEq ER Tab PO ONE (08:15)
[2017-06-15] MEDS: Insulin Lispro (humaLOG) LOW Coverage SC SCH ×4 (08:21→22:04)
[2017-06-15] MEDS: POLYETHYLENE GLYCOL 3350 17 GM/Dose PACKET PO SCH (09:08)
[2017-06-15] MEDS: oxyCODONE 5 mg Immediate Release Tab PO PRN ×3 (09:08→22:24)
--- NOTE | 2017-06-15 12:45 | CP.PCM.PN ---
<Gabrielle Cano - Last Filed: 06/15/17 12:42> Subjective - Date & Time of Evaluation Date of Evaluation: 06/15/17 Time of Evaluation: 12:42 - Subjective Subjective: IM progress note for Dr. Ha-Gabrielle Cano, PGY-1 Pt S & E at bedside at 0720. Pt w/o complaints. Per nursing - pt is very stoic, does not complain of pain much, given Dilaudid once overnight due to moaning. Denies CP, SOB, N & V, F & C, other complaints. Objective - Vital Signs/Intake and Output Vital Signs (last 24 hours): Temp Pulse Resp BP Pulse Ox 99 F 83 20 102/63 95 06/15/17 07:40 06/15/17 07:40 06/15/17 07:40 06/15/17 07:40 06/15/17 07:40 Intake and Output: 06/15/17 06/15/17 06:59 18:59 Intake Total 960 Output Total 625 Balance 335 - Medications Medications: Current Medications Docusate Sodium (Colace) 100 mg PO BID [facility] Last Admin: 06/15/17 09:07 Dose: 100 mg Ferrous Sulfate (Feosol) 324 mg PO DAILY [facility] Last Admin: 06/15/17 09:07 Dose: 324 mg Hydromorphone HCl (Dilaudid) 1 mg IVP Q6H PRN PRN Reason: Pain, severe (8-10) Last Admin: 06/14/17 21:04 Dose: 1 mg Piperacillin Sod/Tazobactam Sod (Zosyn 3.375 In Ns 100ml) 100 mls @ 200 mls/hr IVPB Q6 [facility] PRN Reason: Protocol Last Admin: 06/15/17 05:24 Dose: 200 mls/hr Insulin Human Lispro (Humalog Low) 0 units SC ACHS [facility] PRN Reason: Protocol Last Admin: 06/15/17 08:21 Dose: Not Given Levothyroxine Sodium (Synthroid) 100 mcg PO 0600 [facility] Last Admin: 06/15/17 05:31 Dose: 100 mcg Ondansetron HCl (Zofran Inj) 4 mg IVP Q6H PRN PRN Reason: Nausea/Vomiting Oxycodone HCl (Oxycodone Immediate Release Tab) 5 mg PO Q6H PRN PRN Reason: Pain, moderate (4-7) Last Admin: 06/15/17 09:08 Dose: 5 mg Pantoprazole Sodium (Protonix Ec Tab) 20 mg PO 0600 [facility] Last Admin: 06/15/17 05:31 Dose: 20 mg Polyethylene Glycol (Miralax) 17 gm PO DAILY [facility] Last Admin: 06/15/17 09:08 Dose: 17 gm - Labs Labs: 06/15/17 05:30 06/15/17 05:30 PT 12.7 SECONDS (9.4-12.5) H 06/12/17 07:50 INR 1.10 (0.93-1.08) H 06/12/17 07:50 APTT 27.5 Seconds (25.1-36.5) 06/12/17 07:50 - Constitutional Appears: Non-toxic, No Acute Distress, Cachectic - Head Exam Head Exam: ATRAUMATIC, NORMAL INSPECTION, NORMOCEPHALIC - Eye Exam Eye Exam: EOMI, Normal appearance - ENT Exam ENT Exam: Mucous Membranes Moist, Normal Exam - Neck Exam Neck Exam: Full ROM, Normal Inspection - Respiratory Exam Respiratory Exam: Clear to Ausculation Bilateral, NORMAL BREATHING PATTERN - Cardiovascular Exam Cardiovascular Exam: REGULAR RHYTHM, +S1, +S2 - GI/Abdominal Exam GI & Abdominal Exam: Soft, Normal Bowel Sounds. absent: Distended, Firm, Guarding, Rigid, Tenderness - Extremities Exam Extremities Exam: Normal Inspection. absent: Pedal Edema, Tenderness - Neurological Exam Neurological Exam: Alert, Awake, CN II-XII Intact, Oriented x3 - Psychiatric Exam Psychiatric exam: Normal Affect, Normal Mood - Skin Skin Exam: Dry, Intact, Normal Color, Warm Assessment and Plan - Assessment and Plan (Free Text) Assessment: 72 yo Indian-speaking M with PMH of cholangiocarcinoma with liver mets, HTN, DM , CAD s/p stents, obstructive jaundice, liver mass, and intrahepatic ducal dilatation s/p biliary drain placement, admitted for evaluation of purulent drainage from biliary drain Plan: Biliary drain site leak prior CT with PO/IV contrast notable for hepatic mets, 6x10cm posterior right lobe; again noted on admission CT but read as possible abscess, still 6x10cm Cultures negative x [address] guided hematom drain & biliary tube revision, recommended repeat CT for evaluation FU CT ab ID following- Zosyn in patient, Keflex out Cholangiocarcinoma with liver mets Heme-onc recs- consider portacath placement, continue diomede, add gemcitabine , &/- any other drugs including Erlotinib, need to sent tumor tissue for testing & genotyping- guarded prognosis Lower back pain Dilaudid and oxycodone prn Colace and Miralax Hx Thyroidectomy continue synthroid DM Lispro low sliding scale with ACHS GI/DVT PPx Protonix Lovenox Ambulate OOBTC DW attending Rachael, PGY-1 <Nieves Ha - Last Filed: 06/15/17 13:06> Objective - Vital Signs/Intake and Output Vital Signs (last 24 hours): Temp Pulse Resp BP Pulse Ox 99 F 83 20 102/63 95 06/15/17 07:40 06/15/17 07:40 06/15/17 07:40 06/15/17 07:40 06/15/17 07:40 Intake and Output: 06/15/17 06/15/17 06:59 18:59 Intake Total 960 Output Total 625 Balance 335 - Medications Medications: Current Medications Docusate Sodium (Colace) 100 mg PO BID [facility] Last Admin: 06/15/17 09:07 Dose: 100 mg Ferrous Sulfate (Feosol) 324 mg PO DAILY [facility] Last Admin: 06/15/17 09:07 Dose: 324 mg Hydromorphone HCl (Dilaudid) 1 mg IVP Q6H PRN PRN Reason: Pain, severe (8-10) Last Admin: 06/14/17 21:04 Dose: 1 mg Piperacillin Sod/Tazobactam Sod (Zosyn 3.375 In Ns 100ml) 100 mls @ 200 mls/hr IVPB Q6 [facility] PRN Reason: Protocol Last Admin: 06/15/17 12:50 Dose: 200 mls/hr Insulin Human Lispro (Humalog Low) 0 units SC ACHS [facility] PRN Reason: Protocol Last Admin: 06/15/17 12:49 Dose: 2 units Levothyroxine Sodium (Synthroid) 100 mcg PO 0600 [facility] Last Admin: 06/15/17 05:31 Dose: 100 mcg Ondansetron HCl (Zofran Inj) 4 mg IVP Q6H PRN PRN Reason: Nausea/Vomiting Oxycodone HCl (Oxycodone Immediate Release Tab) 5 mg PO Q6H PRN PRN Reason: Pain, moderate (4-7) Last Admin: 06/15/17 09:08 Dose: 5 mg Pantoprazole Sodium (Protonix Ec Tab) 20 mg PO 0600 [facility] Last Admin: 06/15/17 05:31 Dose: 20 mg Polyethylene Glycol (Miralax) 17 gm PO DAILY [facility] Last Admin: 06/15/17 09:08 Dose: 17 gm - Labs Labs: 06/15/17 05:30 06/15/17 05:30 PT 12.7 SECONDS (9.4-12.5) H 06/12/17 07:50 INR 1.10 (0.93-1.08) H 06/12/17 07:50 APTT 27.5 Seconds (25.1-36.5) 06/12/17 07:50 Attending/Attestation - Attestation I have personally seen and examined this patient.: Yes I have fully participated in the care of the patient.: Yes I have reviewed all pertinent clinical information, including history, physical exam and plan: Yes Notes (Text): 06/15/17 13:02 72 year old male with past medical history of cholangiocarcinoma with liver mets , hypertension, diabetes, CAD s/p stents, and intrahepatic ductal dilatation s/ p biliary drain placement presented with biliary drain leak. He was seen by IR and is s/p hematoma evacuation and drainage. He is also s/p biliary stent replacement. He is on iv antibiotics. ID and oncology are following the patient as well. Case was discussed with Dr. Guerra today; will repeat CT abd/ pelvis today. Nieves Ha MD Hospitalist.
--- NOTE | 2017-06-15 14:29 | CT ---
PROCEDURE: CT Abdomen and Pelvis without intravenous contrast HISTORY: evaluation COMPARISON: None. TECHNIQUE: Without contrast.. Contrast Dose: Radiation dose: Total exam DLP = Total exam DLP = 432 mGy-cm. This CT exam was performed using one or more of the following dose reduction techniques: Automated exposure control, adjustment of the mA and/or kV according to patient size, and/or use of iterative reconstruction technique. FINDINGS: LOWER THORAX: Small right pleural effusion LIVER: There is a pigtail drainage catheter in the posterior subcapsular fluid collection. The collection has decreased in size. There is a percutaneous biliary catheter that terminates in the duodenum GALLBLADDER AND BILE DUCTS: Unremarkable. PANCREAS: Unremarkable. No gross lesion or ductal dilatation. SPLEEN: Unremarkable. ADRENALS: Unremarkable. No mass. KIDNEYS AND URETERS: Unremarkable. No hydronephrosis. No solid mass. VASCULATURE: Unremarkable. No aortic aneurysm. BOWEL: Unremarkable. No obstruction. No gross mural thickening. APPENDIX: Unremarkable. Normal appendix. PERITONEUM: Unremarkable. No free fluid. No free air. There is subcutaneous edema. LYMPH NODES: Unremarkable. No enlarged lymph nodes. BLADDER: Unremarkable. REPRODUCTIVE: Unremarkable. BONES: No acute fracture. OTHER FINDINGS: None. IMPRESSION: Small right pleural effusion Drainage catheter in the right posterior subcapsular fluid collection. This has decreased in size. Percutaneous biliary drainage catheter terminating in the duodenum. There is decompression of the biliary tree
--- NOTE | 2017-06-15 18:18 | CP.PCM.PN ---
Subjective - Date & Time of Evaluation Date of Evaluation: 06/15/17 Time of Evaluation: 15:00 - Subjective Subjective: Infectious Disease Follow Up: June 15, 2017 72 yo male with findings of yellow discharge on bandages around the biliary drain. His PMHx includes cholangiocarcinoma with liver mets, hypertension, diabetes, CAD s/p stents, obstructive jaundice, liver mass, and intrahepatic ducal dilatation s/p biliary drain placement. The patient with no fever or chills. Discharge was not bloody and did not appear to have pus. Site is NOT tender or erythematous. Cultures taken are negative for growth. Patient appears comfortable currently. Less back pain given medications. No additional complaints. Awaiting Port-A-Cath placement. Objective - Vital Signs/Intake and Output Vital Signs (last 24 hours): Temp Pulse Resp BP Pulse Ox 98.3 F 81 20 102/65 99 06/15/17 16:22 06/15/17 16:22 06/15/17 16:22 06/15/17 16:22 06/15/17 16:22 Intake and Output: 06/15/17 06/15/17 06:59 18:59 Intake Total 960 420 Output Total 625 Balance 335 420 - Medications Medications: Current Medications Docusate Sodium (Colace) 100 mg PO BID [facility] Last Admin: 06/15/17 09:07 Dose: 100 mg Ferrous Sulfate (Feosol) 324 mg PO DAILY [facility] Last Admin: 06/15/17 09:07 Dose: 324 mg Hydromorphone HCl (Dilaudid) 1 mg IVP Q6H PRN PRN Reason: Pain, severe (8-10) Last Admin: 06/14/17 21:04 Dose: 1 mg Insulin Human Lispro (Humalog Low) 0 units SC ACHS [facility] PRN Reason: Protocol Last Admin: 06/15/17 16:36 Dose: Not Given Levothyroxine Sodium (Synthroid) 100 mcg PO 0600 [facility] Last Admin: 06/15/17 05:31 Dose: 100 mcg Ondansetron HCl (Zofran Inj) 4 mg IVP Q6H PRN PRN Reason: Nausea/Vomiting Oxycodone HCl (Oxycodone Immediate Release Tab) 5 mg PO Q6H PRN PRN Reason: Pain, moderate (4-7) Last Admin: 06/15/17 16:24 Dose: 5 mg Pantoprazole Sodium (Protonix Ec Tab) 20 mg PO 0600 [facility] Last Admin: 06/15/17 05:31 Dose: 20 mg Polyethylene Glycol (Miralax) 17 gm PO DAILY [facility] Last Admin: 06/15/17 09:08 Dose: 17 gm - Labs Labs: 06/15/17 05:30 06/15/17 05:30 PT 12.7 SECONDS (9.4-12.5) H 06/12/17 07:50 INR 1.10 (0.93-1.08) H 06/12/17 07:50 APTT 27.5 Seconds (25.1-36.5) 06/12/17 07:50 - Constitutional Appears: Non-toxic, No Acute Distress, Chronically Ill - Head Exam Head Exam: ATRAUMATIC, NORMOCEPHALIC - Eye Exam Eye Exam: EOMI, PERRL Pupil Exam: NORMAL ACCOMODATION, PERRL - ENT Exam ENT Exam: Mucous Membranes Moist, Normal External Ear Exam, TM's Normal Bilaterally - Neck Exam Neck Exam: Full ROM, Normal Inspection - Respiratory Exam Respiratory Exam: Clear to Ausculation Bilateral, NORMAL BREATHING PATTERN. absent: Rales, Rhonchi, Wheezes - Cardiovascular Exam Cardiovascular Exam: REGULAR RHYTHM, RRR, +S1, +S2 - GI/Abdominal Exam GI & Abdominal Exam: Soft, Normal Bowel Sounds. absent: Distended, Tenderness Additional comments: right upper quadrant has biliary drain (secured by stitch) emerging, no active bleeding from site, no expressed blood/pus/discharge with pressure at site. Drain has been repaired. - Extremities Exam Extremities Exam: Full ROM, Normal Inspection - Neurological Exam Neurological Exam: Alert, Awake, CN II-XII Intact, Oriented x3 - Psychiatric Exam Psychiatric exam: Normal Affect, Normal Mood - Skin Skin Exam: Intact, Normal Color Assessment and Plan - Assessment and Plan (Free Text) Assessment: 72 yo male with yellow drainage from biliary drain site. The patient denies any other symptoms that includes fevers, pain, chills, fatigue at this time. There is no leukocytosis. He is actively being treated with chemotherapy. Possible tap of a mass vs absces of the posterior right lobe of the liver. Started on Zosyn for antibiotic coverage at this time. Given lack of objective symptoms, would maintain on Zosyn for now. Cultures of the drainage with awareness that skin organism can growth from those cultures and would not necessarily mean that the patient has a fulminate infection. Monitor WBC. Noted that the patient's immune response can be altered as he is on chemotherapy. Subhepatic hematoma drainage by Dr. Duarte Guerra. Supportive care. Local wound care. Remains on Zosyn IV. Can convert to Keflex when ready for discharge. Cultures have been negative. 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 Patient awaiting Port-A-Cath placement. Thank you for allowing me to participate in the care of the this patient, we will follow with you.
[2017-06-16] MEDS: Piperacillin/Tazobact 3.375 gm 100 ML IVPB SCH ×4 (01:25→17:23)
[2017-06-16] MEDS: Pantoprazole 20 mg EC Tab PO SCH (06:41)
[2017-06-16] MEDS: Levothyroxine 100 MCG TAB PO SCH (06:41)
[2017-06-16 08:37] LABS: HEMOGLOBIN 11.6 g/dL (14.0-18.0); MEAN CELL VOLUME 89.1 fl (80.0-105.0); MEAN CORPUSCULAR HGB CONC 33.6 g/dl (31.0-37.0); MEAN PLATELET VOLUME 9.6 fl (7.0-11.0); RBC 3.87 10^6/uL (3.5-6.1); RED CELL DISTRIBUTION WIDTH 16.1 % (11.5-14.5); WHITE BLOOD COUNT 8.9 10^3/ul (4.5-11.0)
[2017-06-16] MEDS: Insulin Lispro (humaLOG) LOW Coverage SC SCH ×4 (08:39→21:20)
[2017-06-16 09:07] LABS: BLOOD UREA NITROGEN 14 mg/dL (7-21); GFR AFRICAN-AMERICAN > 60; GFR NON-AFRICAN AMERICAN > 60
[2017-06-16 09:08] LABS: ALBUMIN 3.1 g/dL (3.0-4.8); ALT/SGPT 77 U/L (7-56); AST/SGOT 58 U/L (17-59); CALCIUM 8.3 mg/dL (8.4-10.5)
--- NOTE | 2017-06-16 09:10 | CP.PCM.PN ---
Subjective - Date & Time of Evaluation Date of Evaluation: 06/16/17 Time of Evaluation: 08:00 - Subjective Subjective: Heme/Onc Progress Note - Dr. Headley Patient was seen and examined at bedside. Pt is swedish speaking. As per nursing staff, no acute or adverse events overnight. Pt denied fever, chills, shortness of breath, chest pains, abdominal pains, nausea, vomiting, diarrhea, constipation or dysuria. Objective - Vital Signs/Intake and Output Vital Signs (last 24 hours): Temp Pulse Resp BP Pulse Ox 98.8 F 77 18 119/72 97 06/16/17 07:44 06/16/17 07:44 06/16/17 07:44 06/16/17 07:44 06/16/17 07:44 Intake and Output: 06/16/17 06/16/17 06:59 18:59 Intake Total 520 Output Total 310 Balance 210 - Medications Medications: Current Medications Docusate Sodium (Colace) 100 mg PO BID [facility] Last Admin: 06/15/17 18:19 Dose: 100 mg Ferrous Sulfate (Feosol) 324 mg PO DAILY [facility] Last Admin: 06/15/17 09:07 Dose: 324 mg Hydromorphone HCl (Dilaudid) 1 mg IVP Q6H PRN PRN Reason: Pain, severe (8-10) Last Admin: 06/14/17 21:04 Dose: 1 mg Sodium Chloride (Sodium Chloride 0.45%) 1,000 mls @ 80 mls/hr IV .[id number] [facility] Stop: 06/18/17 08:00 Piperacillin Sod/Tazobactam Sod (Zosyn 3.375 In Ns 100ml) 100 mls @ 200 mls/hr IVPB Q6 [facility] PRN Reason: Protocol Stop: 06/19/17 23:59 Last Admin: 06/16/17 06:42 Dose: 200 mls/hr Insulin Human Lispro (Humalog Low) 0 units SC ACHS [facility] PRN Reason: Protocol Last Admin: 06/16/17 08:39 Dose: Not Given Levothyroxine Sodium (Synthroid) 100 mcg PO 0600 [facility] Last Admin: 06/16/17 06:41 Dose: 100 mcg Ondansetron HCl (Zofran Inj) 4 mg IVP Q6H PRN PRN Reason: Nausea/Vomiting Oxycodone HCl (Oxycodone Immediate Release Tab) 5 mg PO Q6H PRN PRN Reason: Pain, moderate (4-7) Last Admin: 06/15/17 22:24 Dose: 5 mg Pantoprazole Sodium (Protonix Ec Tab) 20 mg PO 0600 [facility] Last Admin: 06/16/17 06:41 Dose: 20 mg Polyethylene Glycol (Miralax) 17 gm PO DAILY [facility] Last Admin: 06/15/17 09:08 Dose: 17 gm Sucralfate (Carafate Oral Susp) 1 gm PO BID [facility] - Labs Labs: 06/16/17 07:59 06/15/17 05:30 PT 12.7 SECONDS (9.4-12.5) H 06/12/17 07:50 INR 1.10 (0.93-1.08) H 06/12/17 07:50 APTT 27.5 Seconds (25.1-36.5) 06/12/17 07:50 - Constitutional Appears: No Acute Distress - Head Exam Head Exam: ATRAUMATIC, NORMAL INSPECTION, NORMOCEPHALIC - Eye Exam Eye Exam: EOMI, Normal appearance, PERRL Pupil Exam: NORMAL ACCOMODATION, PERRL - ENT Exam ENT Exam: Mucous Membranes Moist, Normal Exam - Respiratory Exam Respiratory Exam: Clear to Ausculation Bilateral, NORMAL BREATHING PATTERN - Cardiovascular Exam Cardiovascular Exam: REGULAR RHYTHM, +S1, +S2. absent: Murmur - GI/Abdominal Exam GI & Abdominal Exam: Soft, Tenderness, Normal Bowel Sounds - Neurological Exam Neurological Exam: Alert, Awake, CN II-XII Intact, Normal Gait, Oriented x3 - Psychiatric Exam Psychiatric exam: Normal Affect, Normal Mood - Skin Skin Exam: Dry, Intact, Normal Color, Warm Assessment and Plan - Assessment and Plan (Free Text) Assessment: 72 M with a PMHx of stage 4 cholangiocarcinoma with liver mets, hypertension, diabetes, CAD s/p stents, obstructive jaundice, liver mass, and intrahepatic ducal dilatation s/p biliary drain placement admitted for evaluation of purulent drainage from biliary drain. ID Dr Rodriguez following, cultures taken are negative for growth. We will recommend consulting IR for internalized stent, will send specimen to [facility] for next gen sequencing. Chemotherapy planned for 11/26. Continue management as per medicine team.
[2017-06-16] MEDS: POLYETHYLENE GLYCOL 3350 17 GM/Dose PACKET PO SCH (09:52)
[2017-06-16] MEDS: Sucralfate 1 gm/10 ml Oral Susp UD PO SCH ×2 (09:52→17:22)
[2017-06-16] MEDS ORDERED: Bisacodyl 5mg EC Tab PO ONE (10:47)
[2017-06-16] MEDS ORDERED: Potassium Chloride 20 mEq ER Tab PO ONE (10:54)
--- NOTE | 2017-06-16 11:07 | CP.PCM.PN ---
<Gabrielle Cano - Last Filed: 06/16/17 11:04> Subjective - Date & Time of Evaluation Date of Evaluation: 06/16/17 Time of Evaluation: 11:04 - Subjective Subjective: IM progress note for Dr. Ha-Gabrielle Cano, PGY-1 Pt S & E at bedside at 0710. No acute events overnight per nursing. No pain. Spoke with son extensively yesterday regarding plan of care - need for portacath and CT evaluation with IR review for drain recommendations. Objective - Vital Signs/Intake and Output Vital Signs (last 24 hours): Temp Pulse Resp BP Pulse Ox 98.8 F 77 18 119/72 97 06/16/17 07:44 06/16/17 07:44 06/16/17 07:44 06/16/17 07:44 06/16/17 07:44 Intake and Output: 06/16/17 06/16/17 06:59 18:59 Intake Total 520 Output Total 310 Balance 210 - Medications Medications: Current Medications Docusate Sodium (Colace) 100 mg PO BID [facility] Last Admin: 06/16/17 09:52 Dose: 100 mg Ferrous Sulfate (Feosol) 324 mg PO DAILY [facility] Last Admin: 06/16/17 09:52 Dose: 324 mg Hydromorphone HCl (Dilaudid) 1 mg IVP Q6H PRN PRN Reason: Pain, severe (8-10) Last Admin: 06/14/17 21:04 Dose: 1 mg Sodium Chloride (Sodium Chloride 0.45%) 1,000 mls @ 80 mls/hr IV .[id number] [facility] Stop: 06/18/17 08:00 Piperacillin Sod/Tazobactam Sod (Zosyn 3.375 In Ns 100ml) 100 mls @ 200 mls/hr IVPB Q6 [facility] PRN Reason: Protocol Stop: 06/19/17 23:59 Last Admin: 06/16/17 06:42 Dose: 200 mls/hr Insulin Human Lispro (Humalog Low) 0 units SC ACHS [facility] PRN Reason: Protocol Last Admin: 06/16/17 08:39 Dose: Not Given Levothyroxine Sodium (Synthroid) 100 mcg PO 0600 [facility] Last Admin: 06/16/17 06:41 Dose: 100 mcg Ondansetron HCl (Zofran Inj) 4 mg IVP Q6H PRN PRN Reason: Nausea/Vomiting Oxycodone HCl (Oxycodone Immediate Release Tab) 5 mg PO Q6H PRN PRN Reason: Pain, moderate (4-7) Last Admin: 06/15/17 22:24 Dose: 5 mg Pantoprazole Sodium (Protonix Ec Tab) 20 mg PO 0600 [facility] Last Admin: 06/16/17 06:41 Dose: 20 mg Polyethylene Glycol (Miralax) 17 gm PO DAILY [facility] Last Admin: 06/16/17 09:52 Dose: 17 gm Sucralfate (Carafate Oral Susp) 1 gm PO BID [facility] Last Admin: 06/16/17 09:52 Dose: 1 gm - Labs Labs: 06/16/17 07:59 06/16/17 08:00 PT 12.7 SECONDS (9.4-12.5) H 06/12/17 07:50 INR 1.10 (0.93-1.08) H 06/12/17 07:50 APTT 27.5 Seconds (25.1-36.5) 06/12/17 07:50 - Constitutional Appears: Non-toxic, No Acute Distress, Cachectic, Chronically Ill - Head Exam Head Exam: ATRAUMATIC, NORMAL INSPECTION, NORMOCEPHALIC - Eye Exam Eye Exam: EOMI, Normal appearance - ENT Exam ENT Exam: Mucous Membranes Moist, Normal Exam - Neck Exam Neck Exam: Full ROM, Normal Inspection - Respiratory Exam Respiratory Exam: Clear to Ausculation Bilateral, NORMAL BREATHING PATTERN. absent: Rales, Rhonchi, Wheezes, Respiratory Distress - Cardiovascular Exam Cardiovascular Exam: REGULAR RHYTHM, +S1, +S2 - GI/Abdominal Exam GI & Abdominal Exam: Soft. absent: Distended, Firm, Guarding, Rigid, Tenderness Additional comments: Right flank with drains x 2; one with dark red output, the other with brownish yellow output; dressing in place- clean/dry/intact - Extremities Exam Extremities Exam: Pedal Edema (bilateral, mild) - Back Exam Back Exam: NORMAL INSPECTION - Neurological Exam Neurological Exam: Alert, Awake, CN II-XII Intact - Psychiatric Exam Psychiatric exam: Normal Affect, Normal Mood - Skin Skin Exam: Dry, Intact, Normal Color, Warm Assessment and Plan - Assessment and Plan (Free Text) Assessment: 72 yo [place]er-speaking M with PMH of cholangiocarcinoma with liver mets, HTN, DM , CAD s/p stents, obstructive jaundice, liver mass, and intrahepatic ducal dilatation s/p biliary drain placement, admitted for evaluation of purulent drainage from biliary drain Plan: Cholangiocarcinoma with liver mets & Cachexia Heme-onc recs- consider portacath placement, continue [place], add gemcitabine , &/- any other drugs including Erlotinib, need to sent tumor tissue for testing & genotyping- guarded prognosis FU IR for portcath placement 1/2 NS @80 per IR Sulcralfate as per Onc Supplements Biliary drain site leak prior CT with PO/IV contrast notable for hepatic mets, 6x10cm posterior right lobe; again noted on admission CT but read as possible abscess, still 6x10cm Cultures negative x [address] guided hematom drain & biliary tube revision, recommended repeat CT for evaluation CT ab w/small R pleural effusion, decreased right posterior subcapsular fluid collection, decompressed biliary system with drain in duodenum ID following- Zosyn in patient, Keflex upon discharge Dressing changes PRN by nursing Lower back pain Dilaudid and oxycodone prn Hx Thyroidectomy continue synthroid DM Lispro low sliding scale with ACHS Zofran PRN nausea Hx anemia Cont home med- Feosol Constipation Miralax Colace Dulcolax x 1 Monitor for bowel function Hypokalemia K 3.3 Replaced 60mEq Monitor GI/DVT PPx Protonix Lovenox Ambulate OOBTC PT DW attending Rachael, PGY-1 <Nieves Ha - Last Filed: 06/16/17 12:36> Objective - Vital Signs/Intake and Output Vital Signs (last 24 hours): Temp Pulse Resp BP Pulse Ox 98.8 F 77 18 119/72 97 06/16/17 07:44 06/16/17 07:44 06/16/17 07:44 06/16/17 07:44 06/16/17 07:44 Intake and Output: 06/16/17 06/16/17 06:59 18:59 Intake Total 520 Output Total 310 Balance 210 - Medications Medications: Current Medications Docusate Sodium (Colace) 100 mg PO BID [facility] Last Admin: 06/16/17 09:52 Dose: 100 mg Ferrous Sulfate (Feosol) 324 mg PO DAILY [facility] Last Admin: 05/08/18 09:52 Dose: 324 mg Hydromorphone HCl (Dilaudid) 1 mg IVP Q6H PRN PRN Reason: Pain, severe (8-10) Last Admin: 06/14/17 21:04 Dose: 1 mg Sodium Chloride (Sodium Chloride 0.45%) 1,000 mls @ 80 mls/hr IV .[id number] [facility] Stop: 06/18/17 08:00 Piperacillin Sod/Tazobactam Sod (Zosyn 3.375 In Ns 100ml) 100 mls @ 200 mls/hr IVPB Q6 [facility] PRN Reason: Protocol Stop: 06/19/17 23:59 Last Admin: 06/16/17 12:06 Dose: 200 mls/hr Insulin Human Lispro (Humalog Low) 0 units SC ACHS [facility] PRN Reason: Protocol Last Admin: 06/16/17 08:39 Dose: Not Given Levothyroxine Sodium (Synthroid) 100 mcg PO 0600 [facility] Last Admin: 06/16/17 06:41 Dose: 100 mcg Ondansetron HCl (Zofran Inj) 4 mg IVP Q6H PRN PRN Reason: Nausea/Vomiting Oxycodone HCl (Oxycodone Immediate Release Tab) 5 mg PO Q6H PRN PRN Reason: Pain, moderate (4-7) Last Admin: 06/15/17 22:24 Dose: 5 mg Pantoprazole Sodium (Protonix Ec Tab) 20 mg PO 0600 [facility] Last Admin: 06/16/17 06:41 Dose: 20 mg Polyethylene Glycol (Miralax) 17 gm PO DAILY [facility] Last Admin: 06/16/17 09:52 Dose: 17 gm Sucralfate (Carafate Oral Susp) 1 gm PO BID [facility] Last Admin: 06/16/17 09:52 Dose: 1 gm - Labs Labs: 06/16/17 07:59 06/16/17 08:00 PT 12.7 SECONDS (9.4-12.5) H 06/12/17 07:50 INR 1.10 (0.93-1.08) H 06/12/17 07:50 APTT 27.5 Seconds (25.1-36.5) 06/12/17 07:50 Attending/Attestation - Attestation I have personally seen and examined this patient.: Yes I have fully participated in the care of the patient.: Yes I have reviewed all pertinent clinical information, including history, physical exam and plan: Yes Notes (Text): 06/16/17 12:34 72 year old male with past medical history of cholangiocarcinoma with liver mets , hypertension, diabetes, CAD s/p stents, and intrahepatic ductal dilatation s/ p biliary drain placement presented with biliary drain leak. He was seen by IR and is s/p hematoma evacuation and drainage. He is also s/p biliary stent replacement. He is on iv antibiotics. Repeat CT abd/pelvis yesterday was reviewed. IR follow up requested for portacath placement as per hematology recommendations in addition to drain care recommendations after reviewing his CT. Will replete and repeat lytes. Nieves Ha MD Hospitalist.
--- NOTE | 2017-06-16 18:23 | CP.PCM.PN ---
Subjective - Date & Time of Evaluation Date of Evaluation: 06/16/17 Time of Evaluation: 16:00 - Subjective Subjective: Infectious Disease Follow Up: June 16, 2017 72 yo male with findings of yellow discharge on bandages around the biliary drain. His PMHx includes cholangiocarcinoma with liver mets, hypertension, diabetes, CAD s/p stents, obstructive jaundice, liver mass, and intrahepatic ducal dilatation s/p biliary drain placement. The patient with no fever or chills. Discharge was not bloody and did not appear to have pus. Site is NOT tender or erythematous. Cultures taken are negative for growth. Patient appears comfortable currently. Less back pain given medications. No additional complaints. Awaiting Port-A-Cath placement. For chemotherapy on . Objective - Vital Signs/Intake and Output Vital Signs (last 24 hours): Temp Pulse Resp BP Pulse Ox 98.8 F 77 18 119/72 97 06/16/17 07:44 06/16/17 07:44 06/16/17 07:44 06/16/17 07:44 06/16/17 07:44 Intake and Output: 06/16/17 06/16/17 06:59 18:59 Intake Total 520 950 Output Total 310 Balance 210 950 - Medications Medications: Current Medications Aspirin (Aspirin Chewable) 81 mg PO DAILY [facility] Last Admin: 06/16/17 17:22 Dose: 81 mg Docusate Sodium (Colace) 100 mg PO BID [facility] Last Admin: 06/16/17 17:22 Dose: 100 mg Ferrous Sulfate (Feosol) 324 mg PO DAILY [facility] Last Admin: 06/16/17 09:52 Dose: 324 mg Hydromorphone HCl (Dilaudid) 1 mg IVP Q6H PRN PRN Reason: Pain, severe (8-10) Last Admin: 06/14/17 21:04 Dose: 1 mg Sodium Chloride (Sodium Chloride 0.45%) 1,000 mls @ 80 mls/hr IV .[id number] [facility] Stop: 06/18/17 08:00 Piperacillin Sod/Tazobactam Sod (Zosyn 3.375 In Ns 100ml) 100 mls @ 200 mls/hr IVPB Q6 [facility] PRN Reason: Protocol Stop: 06/19/17 23:59 Last Admin: 06/16/17 17:23 Dose: 200 mls/hr Insulin Human Lispro (Humalog Low) 0 units SC ACHS [facility] PRN Reason: Protocol Last Admin: 06/16/17 17:09 Dose: Not Given Levothyroxine Sodium (Synthroid) 100 mcg PO 0600 [facility] Last Admin: 06/16/17 06:41 Dose: 100 mcg Ondansetron HCl (Zofran Inj) 4 mg IVP Q6H PRN PRN Reason: Nausea/Vomiting Oxycodone HCl (Oxycodone Immediate Release Tab) 5 mg PO Q6H PRN PRN Reason: Pain, moderate (4-7) Last Admin: 06/15/17 22:24 Dose: 5 mg Pantoprazole Sodium (Protonix Ec Tab) 20 mg PO 0600 [facility] Last Admin: 06/16/17 06:41 Dose: 20 mg Polyethylene Glycol (Miralax) 17 gm PO DAILY [facility] Last Admin: 06/16/17 09:52 Dose: 17 gm Sucralfate (Carafate Oral Susp) 1 gm PO BID [facility] Last Admin: 06/16/17 17:22 Dose: 1 gm - Labs Labs: 06/16/17 07:59 06/16/17 08:00 PT 12.7 SECONDS (9.4-12.5) H 06/12/17 07:50 INR 1.10 (0.93-1.08) H 06/12/17 07:50 APTT 27.5 Seconds (25.1-36.5) 06/12/17 07:50 - Constitutional Appears: Non-toxic, No Acute Distress, Chronically Ill - Head Exam Head Exam: ATRAUMATIC, NORMOCEPHALIC - Eye Exam Eye Exam: EOMI, PERRL Pupil Exam: NORMAL ACCOMODATION, PERRL - ENT Exam ENT Exam: Mucous Membranes Moist, Normal External Ear Exam, TM's Normal Bilaterally - Neck Exam Neck Exam: Full ROM, Normal Inspection - Respiratory Exam Respiratory Exam: Clear to Ausculation Bilateral, NORMAL BREATHING PATTERN. absent: Rales, Rhonchi, Wheezes - Cardiovascular Exam Cardiovascular Exam: REGULAR RHYTHM, RRR, +S1, +S2 - GI/Abdominal Exam GI & Abdominal Exam: Soft, Normal Bowel Sounds. absent: Distended, Tenderness Additional comments: right upper quadrant has biliary drain (secured by stitch) emerging, no active bleeding from site, no expressed blood/pus/discharge with pressure at site. Drain has been repaired. - Extremities Exam Extremities Exam: Full ROM, Normal Inspection - Neurological Exam Neurological Exam: Alert, Awake, CN II-XII Intact, Oriented x3 - Psychiatric Exam Psychiatric exam: Normal Affect, Normal Mood - Skin Skin Exam: Intact, Normal Color Assessment and Plan - Assessment and Plan (Free Text) Assessment: 72 yo male with yellow drainage from biliary drain site. The patient denies any other symptoms that includes fevers, pain, chills, fatigue at this time. There is no leukocytosis. He is actively being treated with chemotherapy. Possible tap of a mass vs absces of the posterior right lobe of the liver. Started on Zosyn for antibiotic coverage at this time. Given lack of objective symptoms, would maintain on Zosyn for now. Cultures of the drainage with awareness that skin organism can growth from those cultures and would not necessarily mean that the patient has a fulminate infection. Monitor WBC. Noted that the patient's immune response can be altered as he is on chemotherapy. Subhepatic hematoma drainage by Dr. Duarte Guerra. Supportive care. Local wound care. Remains on Zosyn IV. Can convert to Keflex when ready for discharge. Cultures have been negative. Very poor detention survival. Patient awaiting Port-A-Cath placement. To start chemotherapy on . Thank you for allowing me to participate in the care of the this patient, we will follow with you.
[2017-06-16] MEDS: Sodium Chloride 0.45% 1,000 ML IV SCH (19:51)
[2017-06-16] MEDS: oxyCODONE 5 mg Immediate Release Tab PO PRN (20:19)
[2017-06-17] MEDS: Piperacillin/Tazobact 3.375 gm 100 ML IVPB SCH ×5 (00:10→23:33)
[2017-06-17] MEDS: oxyCODONE 5 mg Immediate Release Tab PO PRN (02:30)
[2017-06-17] MEDS: Pantoprazole 20 mg EC Tab PO SCH (05:22)
[2017-06-17] MEDS: Levothyroxine 100 MCG TAB PO SCH (05:23)
[2017-06-17] MEDS ORDERED: Heparin 0 ML IV ONE (07:06)
[2017-06-17] MEDS ORDERED: Lidocaine 2% Inj (20ml) ONE (07:06)
[2017-06-17] MEDS ORDERED: Midazolam 2 MG/2 ML VIAL ONE (08:41)
[2017-06-17] MEDS: Insulin Lispro (humaLOG) LOW Coverage SC SCH ×4 (08:45→22:00)
[2017-06-17] MEDS ORDERED: Iodixanol 320 MG/ML 100 ML BOTTLE IV ONE (08:51)
--- NOTE | 2017-06-17 10:55 | VASCULAR ---
PROCEDURE: Ultrasound and fluoroscopic right internal jugular venous access port. CLINICAL HISTORY: Cholangiocarcinoma.Venous port for chemotherapy. PHYSICIAN(S): Duarte Guerra M.D. TECHNIQUE: The relative risks and indications of the procedure were explained to the patient through a sprigger and consent obtained. The patient was placed supine on the arteriogram table and the right neck and chest prepped and draped in the usual sterile fashion. Conscious sedation monitoring was provided throughout the procedure by a nurse. Antibiotics were given prior to the procedure. Under direct ultrasound guidance, the right internal jugular vein was punctured with a micro-puncture set. A 0.035 angled Glidewire was advanced into the IVC. A 4 cm incision was made below the right clavicle and the pocket blunted dissected. A 8 Maori single-lumen catheter, 23 cm long, was advanced to the SVC/RA junction. The catheter was trimmed and attached to the port. The port aspirates and injects easily. The port was placed in the pocket and closed in 2 layers. The patient tolerated the procedure well. IMPRESSION: Ultrasound and fluoroscopically placed right internal jugular venous access port.
[2017-06-17] MEDS ORDERED: Oxycodone/Acetaminophen 5/325 mg Tab ONE (11:20)
[2017-06-17] MEDS: Oxycodone/Acetaminophen 5/325 mg Tab PO PRN ×2 (11:25→20:19)
[2017-06-17] MEDS: Sucralfate 1 gm/10 ml Oral Susp UD PO SCH ×2 (12:23→18:08)
[2017-06-17] MEDS: POLYETHYLENE GLYCOL 3350 17 GM/Dose PACKET PO SCH (12:23)
[2017-06-17] MEDS: Sodium Chloride 0.45% 1,000 ML IV SCH (12:35)
--- NOTE | 2017-06-17 13:00 | CP.PCM.PN ---
<Gabrielle Cano - Last Filed: 06/17/17 12:57> Subjective - Date & Time of Evaluation Date of Evaluation: 06/17/17 Time of Evaluation: 12:58 - Subjective Subjective: IM progress note for Dr. Ha-Gabrielle Cano, PGY-1 Pt S & E at bedside at 1140. No acute events overnight per nursing. Pt just returned from having portacath placed and one drain removed by IR. Denies pain. Dressing saturated at bedside. Objective - Vital Signs/Intake and Output Vital Signs (last 24 hours): Temp Pulse Resp BP Pulse Ox 99.2 F 83 16 118/65 98 06/17/17 11:25 06/17/17 11:25 06/17/17 11:25 06/17/17 11:25 06/17/17 11:25 Intake and Output: 06/17/17 06/17/17 06:59 18:59 Intake Total 1050 120 Output Total 845 995 Balance 205 -875 - Medications Medications: Current Medications Acetaminophen (Tylenol 325mg Tab) 650 mg PO Q4 PRN PRN Reason: Pain, Mild (1-3) Aspirin (Aspirin Chewable) 81 mg PO DAILY [facility] Last Admin: 06/17/17 12:23 Dose: 81 mg Docusate Sodium (Colace) 100 mg PO BID [facility] Last Admin: 06/17/17 12:23 Dose: 100 mg Ferrous Sulfate (Feosol) 324 mg PO DAILY [facility] Last Admin: 06/17/17 12:23 Dose: 324 mg Sodium Chloride (Sodium Chloride 0.45%) 1,000 mls @ 80 mls/hr IV .[id number] [facility] Stop: 06/18/17 08:00 Last Admin: 06/17/17 12:35 Dose: 80 mls/hr Piperacillin Sod/Tazobactam Sod (Zosyn 3.375 In Ns 100ml) 100 mls @ 200 mls/hr IVPB Q6 [facility] PRN Reason: Protocol Stop: 06/19/17 23:59 Last Admin: 06/17/17 12:23 Dose: 200 mls/hr Insulin Human Lispro (Humalog Low) 0 units SC ACHS [facility] PRN Reason: Protocol Last Admin: 06/17/17 11:59 Dose: Not Given Levothyroxine Sodium (Synthroid) 100 mcg PO 0600 [facility] Last Admin: 06/17/17 05:23 Dose: 100 mcg Ondansetron HCl (Zofran Inj) 4 mg IVP Q6H PRN PRN Reason: Nausea/Vomiting Oxycodone/Acetaminophen (Percocet 5/325 Mg Tab) 1 tab PO Q4H PRN PRN Reason: Pain, moderate (4-7) Stop: 06/20/17 09:29 Last Admin: 06/17/17 11:25 Dose: 1 tab Pantoprazole Sodium (Protonix Ec Tab) 20 mg PO 0600 [facility] Last Admin: 06/17/17 05:22 Dose: 20 mg Polyethylene Glycol (Miralax) 17 gm PO DAILY [facility] Last Admin: 06/17/17 12:23 Dose: 17 gm Sucralfate (Carafate Oral Susp) 1 gm PO BID [facility] Last Admin: 06/17/17 12:23 Dose: 1 gm - Labs Labs: 06/16/17 07:59 06/16/17 08:00 PT 12.7 SECONDS (9.4-12.5) H 06/12/17 07:50 INR 1.10 (0.93-1.08) H 06/12/17 07:50 APTT 27.5 Seconds (25.1-36.5) 06/12/17 07:50 - Constitutional Appears: Non-toxic, No Acute Distress, Cachectic - Head Exam Head Exam: ATRAUMATIC, NORMAL INSPECTION, NORMOCEPHALIC - Eye Exam Eye Exam: EOMI, Normal appearance - ENT Exam ENT Exam: Mucous Membranes Moist, Normal Exam - Neck Exam Neck Exam: Full ROM, Normal Inspection - Respiratory Exam Respiratory Exam: Clear to Ausculation Bilateral, NORMAL BREATHING PATTERN. absent: Rales, Rhonchi, Wheezes, Respiratory Distress - Cardiovascular Exam Cardiovascular Exam: REGULAR RHYTHM, +S1, +S2 - GI/Abdominal Exam GI & Abdominal Exam: Soft, Normal Bowel Sounds. absent: Distended, Firm, Guarding, Tenderness Additional comments: Right flank with one drain in place- dressing saturated with serous output- changed at bedside. - Extremities Exam Extremities Exam: Normal Inspection - Back Exam Back Exam: NORMAL INSPECTION - Neurological Exam Neurological Exam: Alert, Awake, CN II-XII Intact - Psychiatric Exam Psychiatric exam: Normal Affect, Normal Mood - Skin Skin Exam: Dry, Intact, Normal Color, Warm Assessment and Plan - Assessment and Plan (Free Text) Assessment: 72 yo [place]-speaking M with PMH of cholangiocarcinoma with liver mets, HTN, DM , CAD s/p stents, obstructive jaundice, liver mass, and intrahepatic ducal dilatation s/p biliary drain placement, admitted for evaluation of purulent drainage from biliary drain, now also for portacath placement for chemo Plan: Cholangiocarcinoma with liver mets & Cachexia Heme-onc recs- consider portacath placement, continue lower [place], add gemcitabine , &/- any other drugs including Erlotinib, need to sent tumor tissue for testing & genotyping- guarded prognosis portcath placed Tylenol PRN 1/2 NS @80 per IR Sulcralfate as per Onc Supplements To have chemo tomorrow To be prehydrated today as per onc Biliary drain site leak prior CT with PO/IV contrast notable for hepatic mets, 6x10cm posterior right lobe; again noted on admission CT but read as possible abscess, still 6x10cm Cultures negative x [address] ab w/small R pleural effusion, decreased right posterior subcapsular fluid collection, decompressed biliary system with drain in duodenum ID following- Zosyn in patient, Keflex upon discharge Dressing changes PRN IR recs- d/c w/drain in place- may be ok to remove in 2-3 days Lower back pain Percocet prn Hx Thyroidectomy continue synthroid DM Lispro low sliding scale with ACHS Zofran PRN nausea Hx anemia Cont home med- Feosol Constipation Miralax Colace Will consider more dulcolax if not moving bowels Monitor Hypokalemia FU BMP Replaced PRN GI/DVT PPx Protonix Lovenox Ambulate OOBTC PT DW attending Rachael, PGY-1 <Nieves Ha - Last Filed: 06/17/17 16:46> Objective - Vital Signs/Intake and Output Vital Signs (last 24 hours): Temp Pulse Resp BP Pulse Ox 99.2 F 83 16 118/65 98 06/17/17 11:25 06/17/17 11:25 06/17/17 11:25 06/17/17 11:25 06/17/17 11:25 Intake and Output: 06/17/17 06/17/17 06:59 18:59 Intake Total 1050 480 Output Total 845 995 Balance 205 -515 - Medications Medications: Current Medications Acetaminophen (Tylenol 325mg Tab) 650 mg PO Q4 PRN PRN Reason: Pain, Mild (1-3) Aspirin (Aspirin Chewable) 81 mg PO DAILY [facility] Last Admin: 06/17/17 12:23 Dose: 81 mg Docusate Sodium (Colace) 100 mg PO BID [facility] Last Admin: 06/17/17 12:23 Dose: 100 mg Ferrous Sulfate (Feosol) 324 mg PO DAILY [facility] Last Admin: 06/17/17 12:23 Dose: 324 mg Sodium Chloride (Sodium Chloride 0.45%) 1,000 mls @ 80 mls/hr IV .[id number] [facility] Stop: 06/18/17 08:00 Last Admin: 06/17/17 12:35 Dose: 80 mls/hr Piperacillin Sod/Tazobactam Sod (Zosyn 3.375 In Ns 100ml) 100 mls @ 200 mls/hr IVPB Q6 [facility] PRN Reason: Protocol Stop: 06/19/17 23:59 Last Admin: 06/17/17 12:23 Dose: 200 mls/hr Insulin Human Lispro (Humalog Low) 0 units SC ACHS [facility] PRN Reason: Protocol Last Admin: 06/17/17 11:59 Dose: Not Given Levothyroxine Sodium (Synthroid) 100 mcg PO 0600 [facility] Last Admin: 06/17/17 05:23 Dose: 100 mcg Ondansetron HCl (Zofran Inj) 4 mg IVP Q6H PRN PRN Reason: Nausea/Vomiting Oxycodone/Acetaminophen (Percocet 5/325 Mg Tab) 1 tab PO Q4H PRN PRN Reason: Pain, moderate (4-7) Stop: 06/20/17 09:29 Last Admin: 06/17/17 11:25 Dose: 1 tab Pantoprazole Sodium (Protonix Ec Tab) 20 mg PO 0600 [facility] Last Admin: 06/17/17 05:22 Dose: 20 mg Polyethylene Glycol (Miralax) 17 gm PO DAILY [facility] Last Admin: 06/17/17 12:23 Dose: 17 gm Sucralfate (Carafate Oral Susp) 1 gm PO BID [facility] Last Admin: 06/17/17 12:23 Dose: 1 gm - Labs Labs: 06/16/17 07:59 06/17/17 13:00 PT 12.7 SECONDS (9.4-12.5) H 06/12/17 07:50 INR 1.10 (0.93-1.08) H 06/12/17 07:50 APTT 27.5 Seconds (25.1-36.5) 06/12/17 07:50 Attending/Attestation - Attestation I have personally seen and examined this patient.: Yes I have fully participated in the care of the patient.: Yes I have reviewed all pertinent clinical information, including history, physical exam and plan: Yes Notes (Text): 06/17/17 16:44 72 year old male with past medical history of cholangiocarcinoma with liver mets , hypertension, diabetes, CAD s/p stents, and intrahepatic ductal dilatation s/ p biliary drain placement presented with biliary drain leak. He was seen by IR and is s/p hematoma evacuation and drainage. He is also s/p biliary stent replacement. He is on iv antibiotics. Repeat CT abd/pelvis yesterday was reviewed. She was seen by IR today with one drain removed and also s/p portacath placement. Case discussed with Dr. Guerra who recommended to continue with drain flushes and possible discharge in 1-2 days with outpatient follow up. Patient to start chemotherapy soon as per oncology. Nieves Ha MD Hospitalist.
[2017-06-17 13:31] LABS: ALT/SGPT 66 U/L (7-56); AST/SGOT 49 U/L (17-59); BLOOD UREA NITROGEN 11 mg/dL (7-21); CALCIUM 8.3 mg/dL (8.4-10.5); GFR AFRICAN-AMERICAN > 60; GFR NON-AFRICAN AMERICAN > 60
--- NOTE | 2017-06-17 15:38 | CP.PCM.PN ---
Subjective - Date & Time of Evaluation Date of Evaluation: 06/17/17 Time of Evaluation: 14:00 - Subjective Subjective: Infectious Disease Follow Up: June 17, 2017 72 yo male with findings of yellow discharge on bandages around the biliary drain. His PMHx includes cholangiocarcinoma with liver mets, hypertension, diabetes, CAD s/p stents, obstructive jaundice, liver mass, and intrahepatic ducal dilatation s/p biliary drain placement. The patient with no fever or chills. Discharge was not bloody and did not appear to have pus. Site is NOT tender or erythematous. Cultures taken are negative for growth. Patient appears comfortable currently. Less back pain given medications. No additional complaints. Had Port-A-Cath placement today. For chemotherapy on . Objective - Vital Signs/Intake and Output Vital Signs (last 24 hours): Temp Pulse Resp BP Pulse Ox 99.2 F 83 16 118/65 98 06/17/17 11:25 06/17/17 11:25 06/17/17 11:25 06/17/17 11:25 06/17/17 11:25 Intake and Output: 06/17/17 06/17/17 06:59 18:59 Intake Total 1050 480 Output Total 845 995 Balance 205 -515 - Medications Medications: Current Medications Acetaminophen (Tylenol 325mg Tab) 650 mg PO Q4 PRN PRN Reason: Pain, Mild (1-3) Aspirin (Aspirin Chewable) 81 mg PO DAILY [facility] Last Admin: 06/17/17 12:23 Dose: 81 mg Docusate Sodium (Colace) 100 mg PO BID [facility] Last Admin: 06/17/17 12:23 Dose: 100 mg Ferrous Sulfate (Feosol) 324 mg PO DAILY [facility] Last Admin: 06/17/17 12:23 Dose: 324 mg Sodium Chloride (Sodium Chloride 0.45%) 1,000 mls @ 80 mls/hr IV .[id number] [facility] Stop: 06/18/17 08:00 Last Admin: 06/17/17 12:35 Dose: 80 mls/hr Piperacillin Sod/Tazobactam Sod (Zosyn 3.375 In Ns 100ml) 100 mls @ 200 mls/hr IVPB Q6 [facility] PRN Reason: Protocol Stop: 06/19/17 23:59 Last Admin: 06/17/17 12:23 Dose: 200 mls/hr Insulin Human Lispro (Humalog Low) 0 units SC ACHS [facility] PRN Reason: Protocol Last Admin: 06/17/17 11:59 Dose: Not Given Levothyroxine Sodium (Synthroid) 100 mcg PO 0600 [facility] Last Admin: 06/17/17 05:23 Dose: 100 mcg Ondansetron HCl (Zofran Inj) 4 mg IVP Q6H PRN PRN Reason: Nausea/Vomiting Oxycodone/Acetaminophen (Percocet 5/325 Mg Tab) 1 tab PO Q4H PRN PRN Reason: Pain, moderate (4-7) Stop: 06/20/17 09:29 Last Admin: 06/17/17 11:25 Dose: 1 tab Pantoprazole Sodium (Protonix Ec Tab) 20 mg PO 0600 [facility] Last Admin: 06/17/17 05:22 Dose: 20 mg Polyethylene Glycol (Miralax) 17 gm PO DAILY [facility] Last Admin: 06/17/17 12:23 Dose: 17 gm Sucralfate (Carafate Oral Susp) 1 gm PO BID [facility] Last Admin: 06/17/17 12:23 Dose: 1 gm - Labs Labs: 06/16/17 07:59 06/17/17 13:00 PT 12.7 SECONDS (9.4-12.5) H 06/12/17 07:50 INR 1.10 (0.93-1.08) H 06/12/17 07:50 APTT 27.5 Seconds (25.1-36.5) 06/12/17 07:50 - Constitutional Appears: Non-toxic, No Acute Distress, Chronically Ill - Head Exam Head Exam: ATRAUMATIC, NORMOCEPHALIC - Eye Exam Eye Exam: EOMI, PERRL Pupil Exam: NORMAL ACCOMODATION, PERRL - ENT Exam ENT Exam: Mucous Membranes Moist, Normal External Ear Exam, TM's Normal Bilaterally - Neck Exam Neck Exam: Full ROM, Normal Inspection - Respiratory Exam Respiratory Exam: Clear to Ausculation Bilateral, NORMAL BREATHING PATTERN. absent: Rales, Rhonchi, Wheezes - Cardiovascular Exam Cardiovascular Exam: REGULAR RHYTHM, RRR, +S1, +S2 - GI/Abdominal Exam GI & Abdominal Exam: Soft, Normal Bowel Sounds. absent: Distended, Tenderness Additional comments: right upper quadrant has biliary drain (secured by stitch) emerging, no active bleeding from site, no expressed blood/pus/discharge with pressure at site. Drain has been repaired. - Extremities Exam Extremities Exam: Full ROM, Normal Inspection - Neurological Exam Neurological Exam: Alert, Awake, CN II-XII Intact, Oriented x3 - Psychiatric Exam Psychiatric exam: Normal Affect, Normal Mood - Skin Skin Exam: Intact, Normal Color Assessment and Plan - Assessment and Plan (Free Text) Assessment: 72 yo male with yellow drainage from biliary drain site. The patient denies any other symptoms that includes fevers, pain, chills, fatigue at this time. There is no leukocytosis. He is actively being treated with chemotherapy. Possible tap of a mass vs absces of the posterior right lobe of the liver. Started on Zosyn for antibiotic coverage at this time. Given lack of objective symptoms, would maintain on Zosyn for now. Cultures of the drainage with awareness that skin organism can grow from those cultures and would not necessarily mean that the patient has a fulminate infection. Monitor WBC. Noted that the patient's immune response can be altered as he is on chemotherapy. Subhepatic hematoma drainage by Dr. Duarte Guerra. Supportive care. Local wound care. Remains on Zosyn IV. Can convert to Keflex when ready for discharge. Cultures have been negative. Very poor long term care administrator survival. Patient had Port-A-Cath placement. To start chemotherapy on . Thank you for allowing me to participate in the care of the this patient, we will follow with you.
--- NOTE | 2017-06-17 16:07 | CP.PCM.PN ---
Subjective - Date & Time of Evaluation Date of Evaluation: 06/17/17 Time of Evaluation: 10:00 - Subjective Subjective: Heme/Onc Progress Note - Dr. Headley Patient was seen and examined at bedside. Pt is uruguayan speaking. As per nursing staff, no acute or adverse events overnight. Pt denied fever, chills, shortness of breath, chest pains, abdominal pains, nausea, vomiting, diarrhea, constipation or dysuria. Objective - Vital Signs/Intake and Output Vital Signs (last 24 hours): Temp Pulse Resp BP Pulse Ox 99.2 F 83 16 118/65 98 06/17/17 11:25 06/17/17 11:25 06/17/17 11:25 06/17/17 11:25 06/17/17 11:25 Intake and Output: 06/17/17 06/17/17 06:59 18:59 Intake Total 1050 480 Output Total 845 995 Balance 205 -515 - Medications Medications: Current Medications Acetaminophen (Tylenol 325mg Tab) 650 mg PO Q4 PRN PRN Reason: Pain, Mild (1-3) Aspirin (Aspirin Chewable) 81 mg PO DAILY [facility] Last Admin: 06/17/17 12:23 Dose: 81 mg Docusate Sodium (Colace) 100 mg PO BID [facility] Last Admin: 06/17/17 12:23 Dose: 100 mg Ferrous Sulfate (Feosol) 324 mg PO DAILY [facility] Last Admin: 06/17/17 12:23 Dose: 324 mg Sodium Chloride (Sodium Chloride 0.45%) 1,000 mls @ 80 mls/hr IV .[id number] [facility] Stop: 06/18/17 08:00 Last Admin: 06/17/17 12:35 Dose: 80 mls/hr Piperacillin Sod/Tazobactam Sod (Zosyn 3.375 In Ns 100ml) 100 mls @ 200 mls/hr IVPB Q6 [facility] PRN Reason: Protocol Stop: 06/19/17 23:59 Last Admin: 06/17/17 12:23 Dose: 200 mls/hr Insulin Human Lispro (Humalog Low) 0 units SC ACHS [facility] PRN Reason: Protocol Last Admin: 06/17/17 11:59 Dose: Not Given Levothyroxine Sodium (Synthroid) 100 mcg PO 0600 [facility] Last Admin: 05/09/18 05:23 Dose: 100 mcg Ondansetron HCl (Zofran Inj) 4 mg IVP Q6H PRN PRN Reason: Nausea/Vomiting Oxycodone/Acetaminophen (Percocet 5/325 Mg Tab) 1 tab PO Q4H PRN PRN Reason: Pain, moderate (4-7) Stop: 06/20/17 09:29 Last Admin: 06/17/17 11:25 Dose: 1 tab Pantoprazole Sodium (Protonix Ec Tab) 20 mg PO 0600 [facility] Last Admin: 06/17/17 05:22 Dose: 20 mg Polyethylene Glycol (Miralax) 17 gm PO DAILY [facility] Last Admin: 06/17/17 12:23 Dose: 17 gm Sucralfate (Carafate Oral Susp) 1 gm PO BID [facility] Last Admin: 06/17/17 12:23 Dose: 1 gm - Labs Labs: 06/16/17 07:59 06/17/17 13:00 PT 12.7 SECONDS (9.4-12.5) H 06/12/17 07:50 INR 1.10 (0.93-1.08) H 06/12/17 07:50 APTT 27.5 Seconds (25.1-36.5) 06/12/17 07:50 - Constitutional Appears: No Acute Distress - Head Exam Head Exam: ATRAUMATIC, NORMAL INSPECTION, NORMOCEPHALIC - Eye Exam Eye Exam: EOMI, Normal appearance, PERRL Pupil Exam: NORMAL ACCOMODATION, PERRL - ENT Exam ENT Exam: Mucous Membranes Moist, Normal Exam - Respiratory Exam Respiratory Exam: Clear to Ausculation Bilateral, NORMAL BREATHING PATTERN - Cardiovascular Exam Cardiovascular Exam: REGULAR RHYTHM, +S1, +S2. absent: Murmur - GI/Abdominal Exam GI & Abdominal Exam: Soft, Normal Bowel Sounds. absent: Tenderness - Neurological Exam Neurological Exam: Alert, Awake, CN II-XII Intact, Normal Gait, Oriented x3 - Psychiatric Exam Psychiatric exam: Normal Affect, Normal Mood - Skin Skin Exam: Dry, Intact, Normal Color, Warm Assessment and Plan - Assessment and Plan (Free Text) Assessment: 72 M with a PMHx of stage 4 cholangiocarcinoma with liver mets, hypertension, diabetes, CAD s/p stents, obstructive jaundice, liver mass, and intrahepatic ducal dilatation s/p biliary drain placement admitted for evaluation of purulent drainage from biliary drain. ID Dr Michael vincent, cultures taken are negative for growth. We will recommend consulting IR for internalized stent, will send specimen to [facility] for next gen sequencing. Chemotherapy planned for 11/26. To be prehydrated today. Biliary drain site leak. Prior CT with PO/IV contrast notable for hepatic mets, 6x10cm posterior right lobe; again noted on admission CT but read as possible abscess, still 6x10cm Cultures negative x [address] ab w/small R pleural effusion, decreased right posterior subcapsular fluid collection, decompressed biliary system with drain in duodenum. ID following- Zosyn in patient, Keflex upon discharge. IR recs- d/ c w/drain in place- may be ok to remove in 2-3 days.
[2017-06-18] MEDS: Oxycodone/Acetaminophen 5/325 mg Tab PO PRN (00:35)
[2017-06-18] MEDS: Sodium Chloride 0.45% 1,000 ML IV SCH (02:21)
[2017-06-18] MEDS: Levothyroxine 100 MCG TAB PO SCH (05:40)
[2017-06-18] MEDS: Piperacillin/Tazobact 3.375 gm 100 ML IVPB SCH (05:40)
[2017-06-18] MEDS: Pantoprazole 20 mg EC Tab PO SCH (05:41)
[2017-06-18 07:46] VITALS: BP 117/78; PULSE 73; RESP 19; TEMP 98; O2SAT 99
[2017-06-18 08:15] LABS: BASO # 0.01 K/mm3 (0.0-2.0); BASO % 0.2 % (0.0-3.0); EOS # 0.1 (0.0-0.7); GRAN # 3.32 (1.4-6.5); GRAN % 71.1 % (50.0-68.0); LYMPH # 0.8 (1.2-3.4); LYMPH % 17.1 % (22.0-35.0); MEAN CELL VOLUME 89.8 fl (80.0-105.0); MEAN CORPUSCULAR HEMOGLOBIN 29.4 pg (25.0-35.0); MEAN CORPUSCULAR HGB CONC 32.7 g/dl (31.0-37.0); MEAN PLATELET VOLUME 9.5 fl (7.0-11.0); MONO # 0.4 (0.1-0.6); MONO % 8.6 % (1.0-6.0); RBC 3.74 10^6/uL (3.5-6.1); WHITE BLOOD COUNT 4.7 10^3/ul (4.5-11.0)
[2017-06-18 08:43] LABS: ALBUMIN 2.7 g/dL (3.0-4.8); ALT/SGPT 59 U/L (7-56); AST/SGOT 38 U/L (17-59); BLOOD UREA NITROGEN 9 mg/dL (7-21); CALCIUM 8.1 mg/dL (8.4-10.5); GFR AFRICAN-AMERICAN > 60; GFR NON-AFRICAN AMERICAN > 60
[2017-06-18] MEDS ORDERED: Potassium Chloride 40 mEq/30 ml LIQ UD PO ONE (08:57)
--- NOTE | 2017-06-18 13:47 | CP.PCM.PN ---
Subjective - Date & Time of Evaluation Date of Evaluation: 06/18/17 Time of Evaluation: 09:00 - Subjective Subjective: Infectious Disease Follow Up: June 18, 2017 72 yo male with findings of yellow discharge on bandages around the biliary drain. His PMHx includes cholangiocarcinoma with liver mets, hypertension, diabetes, CAD s/p stents, obstructive jaundice, liver mass, and intrahepatic ducal dilatation s/p biliary drain placement. The patient with no fever or chills. Discharge was not bloody and did not appear to have pus. Site is NOT tender or erythematous. Cultures taken are negative for growth. Patient appears comfortable currently. Less back pain given medications. No additional complaints. Had Port-A-Cath placement. Chemotherapy done on (today) in Infusion clinic. Objective - Vital Signs/Intake and Output Vital Signs (last 24 hours): Temp Pulse Resp BP Pulse Ox 98 F 73 19 117/78 99 06/18/17 07:46 06/18/17 07:46 06/18/17 07:46 06/18/17 07:46 06/18/17 07:46 Intake and Output: 06/18/17 06/18/17 06:59 18:59 Intake Total 1080 Output Total 1675 Balance -595 - Labs Labs: 06/18/17 08:00 06/18/17 08:00 PT 12.7 SECONDS (9.4-12.5) H 06/12/17 07:50 INR 1.10 (0.93-1.08) H 06/12/17 07:50 APTT 27.5 Seconds (25.1-36.5) 06/12/17 07:50 - Constitutional Appears: Non-toxic, No Acute Distress, Chronically Ill - Head Exam Head Exam: ATRAUMATIC, NORMOCEPHALIC - Eye Exam Eye Exam: EOMI, PERRL Pupil Exam: NORMAL ACCOMODATION, PERRL - ENT Exam ENT Exam: Mucous Membranes Moist, Normal External Ear Exam, TM's Normal Bilaterally - Neck Exam Neck Exam: Full ROM, Normal Inspection - Respiratory Exam Respiratory Exam: Clear to Ausculation Bilateral, NORMAL BREATHING PATTERN. absent: Rales, Rhonchi, Wheezes - Cardiovascular Exam Cardiovascular Exam: REGULAR RHYTHM, RRR, +S1, +S2 - GI/Abdominal Exam GI & Abdominal Exam: Soft, Normal Bowel Sounds. absent: Distended, Tenderness Additional comments: right upper quadrant has biliary drain (secured by stitch) emerging, no active bleeding from site, no expressed blood/pus/discharge with pressure at site. Drain has been repaired. - Extremities Exam Extremities Exam: Full ROM, Normal Inspection - Neurological Exam Neurological Exam: Alert, Awake, CN II-XII Intact, Oriented x3 - Psychiatric Exam Psychiatric exam: Normal Affect, Normal Mood - Skin Skin Exam: Intact, Normal Color Assessment and Plan - Assessment and Plan (Free Text) Assessment: 72 yo male with yellow drainage from biliary drain site. The patient denies any other symptoms that includes fevers, pain, chills, fatigue at this time. There is no leukocytosis. He is actively being treated with chemotherapy. Possible tap of a mass vs absces of the posterior right lobe of the liver. Started on Zosyn for antibiotic coverage at this time. Given lack of objective symptoms, would maintain on Zosyn for now. Cultures of the drainage with awareness that skin organism can grow from those cultures and would not necessarily mean that the patient has a fulminate infection. Monitor WBC. Noted that the patient's immune response can be altered as he is on chemotherapy. Subhepatic hematoma drainage by Dr. Duarte Guerra. Supportive care. Local wound care. Remains on Zosyn IV. Can convert to Keflex when ready for discharge. Cultures have been negative. Very poor jail survival. Patient had Port-A-Cath placement. To start chemotherapy on in infusion center. Thank you for allowing me to participate in the care of the this patient, we will follow with you.
--- NOTE | 2017-06-18 15:34 | CP.PCM.DIS ---
<Maynor Simpson - Last Filed: 06/18/17 15:24> Provider - Provider Date of Admission: 06/12/17 15:13 Attending physician: Nieves Ha MD Consults: Hem/Onc - Dr. Kayode HORVATH - Dr. Michael TOBIAS - Dr. Duarte Guerra Time Spent in preparation of Discharge (in minutes): 60 Hospital Course - Lab Results Lab Results: Most Recent Lab Values WBC 4.7 10^3/ul (4.5-11.0) D 06/18/17 08:00 RBC 3.74 10^6/uL (3.5-6.1) 06/18/17 08:00 Hgb 11.0 g/dL (14.0-18.0) L 06/18/17 08:00 Hct 33.6 % (42.0-52.0) L 06/18/17 08:00 MCV 89.8 fl (80.0-105.0) 06/18/17 08:00 MCH 29.4 pg (25.0-35.0) 06/18/17 08:00 MCHC 32.7 g/dl (31.0-37.0) 06/18/17 08:00 RDW 16.0 % (11.5-14.5) H 06/18/17 08:00 Plt Count 228 10^3/uL (120.0-450.0) 06/18/17 08:00 MPV 9.5 fl (7.0-11.0) 06/18/17 08:00 Gran % 71.1 % (50.0-68.0) H 06/18/17 08:00 Lymph % (Auto) 17.1 % (22.0-35.0) L 06/18/17 08:00 Har[place] % (Auto) 8.6 % (1.0-6.0) H 06/18/17 08:00 Eos % (Auto) 3.0 % (1.5-5.0) 06/18/17 08:00 Baso % (Auto) 0.2 % (0.0-3.0) 06/18/17 08:00 Gran # 3.32 (1.4-6.5) 06/18/17 08:00 Lymph # (Auto) 0.8 (1.2-3.4) L 06/18/17 08:00 Harlan # (Auto) 0.4 (0.1-0.6) 06/18/17 08:00 Eos # (Auto) 0.1 (0.0-0.7) 06/18/17 08:00 Baso # (Auto) 0.01 K/mm3 (0.0-2.0) 06/18/17 08:00 PT 12.7 SECONDS (9.4-12.5) H 06/12/17 07:50 INR 1.10 (0.93-1.08) H 06/12/17 07:50 APTT 27.5 Seconds (25.1-36.5) 06/12/17 07:50 Sodium 140 mmol/L (132-148) 06/18/17 08:00 Potassium 3.5 mmol/L (3.6-5.0) L 06/18/17 08:00 Chloride 105 mmol/L (98-107) 06/18/17 08:00 Carbon Dioxide 25 mmol/L (21-33) 06/18/17 08:00 Anion Gap 14 (10-20) 06/18/17 08:00 BUN 9 mg/dL (7-21) 06/18/17 08:00 Creatinine 0.9 mg/dl (0.8-1.5) 06/18/17 08:00 Est GFR ( Amer) > 60 06/18/17 08:00 Est GFR (Non-Af Amer) > 60 06/18/17 08:00 POC Glucose (mg/dL) 167 mg/dL (65-110) H 06/18/17 07:33 Random Glucose 177 mg/dL (70-110) H 06/18/17 08:00 Calcium 8.1 mg/dL (8.4-10.5) L 06/18/17 08:00 Phosphorus 2.7 mg/dL (2.5-4.5) 06/18/17 08:00 Magnesium 2.0 mg/dL (1.7-2.2) 06/18/17 08:00 Total Bilirubin 1.9 mg/dL (0.2-1.3) H 06/18/17 08:00 Direct Bilirubin 1.7 mg/dL (0.0-0.4) H 06/15/17 05:30 AST 38 U/L (17-59) 06/18/17 08:00 ALT 59 U/L (7-56) H 06/18/17 08:00 Alkaline Phosphatase 183 U/L (38-126) H 06/18/17 08:00 Total Protein 5.4 g/dL (5.8-8.3) L 06/18/17 08:00 Albumin 2.7 g/dL (3.0-4.8) L 06/18/17 08:00 Globulin 2.6 gm/dL 06/18/17 08:00 Albumin/Globulin Ratio 1.0 (1.1-1.8) L 06/18/17 08:00 Lipase 507 U/L (23-300) H 06/12/17 00:20 Procalcitonin 0.13 NG/ML (0.19-0.49) L 06/12/17 07:50 Urine Color Yellow (YELLOW) 06/12/17 01:13 Urine Appearance Clear (CLEAR) 06/12/17 01:13 Urine pH 6.0 (4.7-8.0) 06/12/17 01:13 Ur Specific [place] 1.025 (1.005-1.035) 06/12/17 01:13 Urine Protein Trace mg/dL (<30 mg/dL) H 06/12/17 01:13 Urine Glucose (UA) Negative mg/dL (NEGATIVE) 06/12/17 01:13 Urine Ketones Negative mg/dL (NEGATIVE) 06/12/17 01:13 Urine Blood Negative (NEGATIVE) 06/12/17 01:13 Urine Nitrate Negative (NEGATIVE) 06/12/17 01:13 Urine Bilirubin Negative (NEGATIVE) 06/12/17 01:13 Urine Urobilinogen 0.2 E.U./dL (<1 E.U./dL) 06/12/17 01:13 Ur Leukocyte Esterase Negative Missy/uL (NEGATIVE) 06/12/17 01:13 Urine RBC 0 - 2 /hpf (0-2) 06/12/17 01:13 Urine WBC 0 - 2 /hpf (0-6) 06/12/17 01:13 Ur Epithelial Cells 0 - 2 /hpf (0-5) 06/12/17 01:13 Blood Type B POSITIVE 06/12/17 00:20 Antibody Screen Negative 06/12/17 00:20 BBK History Checked Patient has bt 06/12/17 00:20 - Hospital Course Hospital Course: As per admission documentation 72 yo Czech-speaking M with PMH of cholangiocarcinoma with liver mets, hypertension, diabetes, CAD s/p stents, obstructive jaundice, liver mass, and intrahepatic ducal dilatation s/p biliary drain placement, presents to the emergency department for evaluation of the drainage site for possible purulent drainage. As per Son at bedside, he first noted drainage on the bandages covering the drain today when changing it. The bandage was light yellow with edge covering the site of suturing darkly discolored, scant serosanguinous fluids. Patient and son denies bloody discharge, kemar pus, warmth at site, or fevers/chills, nausea, emesis. Denies any other systemic symptoms, denies any pain. Does admit to chronic leg edema, unchanged from baseline, no asymmetrical swelling or pain. All other ROS in 12-system review negative. Hospital course Seen/evaluted by ID with recommendations for Antibiotics. Patient was treated with Zosyn IVPB while he was inpatient. He was discharged home on Keflex 500mg PO TID for 10 days. Pt seen/evaluted by oncology with recommendations for portacath. Pt seen/evaluted by IR with portacath insertion, revision of biliary tube and subsequent removal of secondary tube. He was instructed by IR to follow up within 2 to 3 days after discharge for re-evaluation and possible removal of primary biliary drain. Pt was stable and ready for discharge directly to chemotherapy on hospital day 6. Discharge Instructions 1. Follow up with Dr. Headley next week 2. Please change the drain dressing as needed - as instructed in person yesterday 3. Take medications as prescribed 4. Return to ED, if symptoms worsen 5. Please go to chemotherapy 6. follow up with Dr. Guerra in 2-3 days to evaluate whether the drain could be removed. Discharge Prescriptions Keflex 500mg PO TID x 10 days - disp 30 cap Colace 100mg PO BID prn - disp 10 cap Percocet 5/325mg PO q6h prn - disp 12 tab Protonix EC tab 20mg PO daily - disp 30 ect This is just a brief summary of the patient's hospital course. Please see EMR for complete detail of patient's hospital stay. Discharge Exam - Head Exam Head Exam: ATRAUMATIC, NORMOCEPHALIC - Eye Exam Eye Exam: EOMI, Normal appearance - ENT Exam ENT Exam: Mucous Membranes Moist - Neck Exam Neck exam: Full Rom, Normal Inspection - Respiratory Exam Respiratory Exam: Clear to PA & Lateral, NORMAL BREATHING PATTERN, UNREMARKABLE. absent: Accessory Muscle Use, Rales, Rhonchi, Wheezes, Respiratory Distress - Cardiovascular Exam Cardiovascular Exam: REGULAR RHYTHM, +S1, +S2. absent: JVD - GI/Abdominal Exam GI & Abdominal Exam: Normal Bowel Sounds, Soft. absent: Distended, Firm, Guarding, Rebound, Rigid, Tenderness Additional comments: Right flank with one drain in place - dressing c/d/i - Extremities Exam Extremities exam: normal inspection - Neurological Exam Neurological exam: Alert, Oriented x3 - Psychiatric Exam Psychiatric exam: Normal Affect, Normal Mood - Skin Skin Exam: Dry, Warm Discharge Plan - Discharge Medications Prescriptions: Cephalexin [Keflex] 500 mg PO TID #30 capsule Docusate [Colace] 100 mg PO BID PRN #10 cap PRN Reason: Constipation oxyCODONE [oxyCODONE Immediate Release Tab] 5 mg PO Q6H PRN #12 tab PRN Reason: Pain, Moderate (4-7) Pantoprazole [Protonix EC Tab] 20 mg PO DAILY #30 ect - Follow Up Plan Condition: FAIR Disposition: HOME/ ROUTINE Instructions: Percutaneous Transhepatic Cholangiogram (DC) Additional Instructions: 1. Follow up with Dr. Headley next week 2. Please change the drain dressing as needed - as instructed in person yesterday 3. Take medications as prescribed 4. Return to ED, if symptoms worsen 5. Please go to chemotherapy 6. follow up with Dr. Guerra in 2-3 days to evaluate whether the drain could be removed. Referrals: Michael Headley MD [Family Provider] - <Nieves Ha - Last Filed: 06/18/17 16:00> Provider - Provider Date of Admission: 06/12/17 15:13 Attending physician: Nieves Ha MD Hospital Course - Lab Results Lab Results: Most Recent Lab Values WBC 4.7 10^3/ul (4.5-11.0) D 06/18/17 08:00 RBC 3.74 10^6/uL (3.5-6.1) 06/18/17 08:00 Hgb 11.0 g/dL (14.0-18.0) L 06/18/17 08:00 Hct 33.6 % (42.0-52.0) L 06/18/17 08:00 MCV 89.8 fl (80.0-105.0) 06/18/17 08:00 MCH 29.4 pg (25.0-35.0) 06/18/17 08:00 MCHC 32.7 g/dl (31.0-37.0) 06/18/17 08:00 RDW 16.0 % (11.5-14.5) H 06/18/17 08:00 Plt Count 228 10^3/uL (120.0-450.0) 06/18/17 08:00 MPV 9.5 fl (7.0-11.0) 06/18/17 08:00 Gran % 71.1 % (50.0-68.0) H 06/18/17 08:00 Lymph % (Auto) 17.1 % (22.0-35.0) L 06/18/17 08:00 Harlan % (Auto) 8.6 % (1.0-6.0) H 06/18/17 08:00 Eos % (Auto) 3.0 % (1.5-5.0) 06/18/17 08:00 Baso % (Auto) 0.2 % (0.0-3.0) 06/18/17 08:00 Gran # 3.32 (1.4-6.5) 06/18/17 08:00 Lymph # (Auto) 0.8 (1.2-3.4) L 06/18/17 08:00 Harlan # (Auto) 0.4 (0.1-0.6) 06/18/17 08:00 Eos # (Auto) 0.1 (0.0-0.7) 06/18/17 08:00 Baso # (Auto) 0.01 K/mm3 (0.0-2.0) 06/18/17 08:00 PT 12.7 SECONDS (9.4-12.5) H 06/12/17 07:50 INR 1.10 (0.93-1.08) H 06/12/17 07:50 APTT 27.5 Seconds (25.1-36.5) 06/12/17 07:50 Sodium 140 mmol/L (132-148) 06/18/17 08:00 Potassium 3.5 mmol/L (3.6-5.0) L 06/18/17 08:00 Chloride 105 mmol/L (98-107) 06/18/17 08:00 Carbon Dioxide 25 mmol/L (21-33) 06/18/17 08:00 Anion Gap 14 (10-20) 06/18/17 08:00 BUN 9 mg/dL (7-21) 06/18/17 08:00 Creatinine 0.9 mg/dl (0.8-1.5) 06/18/17 08:00 Est GFR ( Amer) > 60 06/18/17 08:00 Est GFR (Non-Af Amer) > 60 06/18/17 08:00 POC Glucose (mg/dL) 167 mg/dL (65-110) H 06/18/17 07:33 Random Glucose 177 mg/dL (70-110) H 06/18/17 08:00 Calcium 8.1 mg/dL (8.4-10.5) L 06/18/17 08:00 Phosphorus 2.7 mg/dL (2.5-4.5) 06/18/17 08:00 Magnesium 2.0 mg/dL (1.7-2.2) 06/18/17 08:00 Total Bilirubin 1.9 mg/dL (0.2-1.3) H 06/18/17 08:00 Direct Bilirubin 1.7 mg/dL (0.0-0.4) H 06/15/17 05:30 AST 38 U/L (17-59) 06/18/17 08:00 ALT 59 U/L (7-56) H 06/18/17 08:00 Alkaline Phosphatase 183 U/L (38-126) H 06/18/17 08:00 Total Protein 5.4 g/dL (5.8-8.3) L 06/18/17 08:00 Albumin 2.7 g/dL (3.0-4.8) L 06/18/17 08:00 Globulin 2.6 gm/dL 06/18/17 08:00 Albumin/Globulin Ratio 1.0 (1.1-1.8) L 06/18/17 08:00 Lipase 507 U/L (23-300) H 06/12/17 00:20 Procalcitonin 0.13 NG/ML (0.19-0.49) L 06/12/17 07:50 Urine Color Yellow (YELLOW) 06/12/17 01:13 Urine Appearance Clear (CLEAR) 06/12/17 01:13 Urine pH 6.0 (4.7-8.0) 06/12/17 01:13 Ur Specific [place] 1.025 (1.005-1.035) 06/12/17 01:13 Urine Protein Trace mg/dL (<30 mg/dL) H 06/12/17 01:13 Urine Glucose (UA) Negative mg/dL (NEGATIVE) 06/12/17 01:13 Urine Ketones Negative mg/dL (NEGATIVE) 06/12/17 01:13 Urine Blood Negative (NEGATIVE) 06/12/17 01:13 Urine Nitrate Negative (NEGATIVE) 06/12/17 01:13 Urine Bilirubin Negative (NEGATIVE) 06/12/17 01:13 Urine Urobilinogen 0.2 E.U./dL (<1 E.U./dL) 06/12/17 01:13 Ur Leukocyte Esterase Negative Missy/uL (NEGATIVE) 06/12/17 01:13 Urine RBC 0 - 2 /hpf (0-2) 06/12/17 01:13 Urine WBC 0 - 2 /hpf (0-6) 06/12/17 01:13 Ur Epithelial Cells 0 - 2 /hpf (0-5) 06/12/17 01:13 Blood Type B POSITIVE 06/12/17 00:20 Antibody Screen Negative 06/12/17 00:20 BBK History Checked Patient has bt 06/12/17 00:20 Attending/Attestation - Attestation I have personally seen and examined this patient.: Yes I have fully participated in the care of the patient.: Yes I have reviewed all pertinent clinical information, including history, physical exam and plan: Yes Notes (Text): 06/18/17 15:58 72 year old male with past medical history of cholangiocarcinoma with liver mets , hypertension, diabetes, CAD s/p stents, and intrahepatic ductal dilatation s/ p biliary drain placement presented with biliary drain leak. He was seen by IR and is s/p hematoma evacuation and drainage. He is also s/p biliary stent replacement. He was on iv antibiotics. Repeat CT abd/pelvis showed decreased collection. He was seen by IR yesterday with one drain removal and also s/p portacath placement. Dr. Guerra recommended to continue with drain flushes and follow up in 2-3 days for possible drain removal. Patient is discharged home to follow up with her pmd. Follow up with hematology/oncology for chemotherapy. Follow up with IR for drain care / removal. Continue with po antibiotics as prescribed. Nieves Ha MD Hospitalist.
== END 2017-06-18 10:04 | disposition home or self-care (01) | DRG 919 ==
LOC: ED 23:09 → ERH 06-12 03:54 → 3RNO 06-12 08:56 → OBSVTOIN 06-12 15:13
PROVIDERS: ADMIT Internal Medicine; ATTEND Internal Medicine
PROC: 0F2BX0Z Change Drainage Device in Hepatobiliary Duct, External Approach (ICD-10-PCS; 2017-06-12)
PROC: 0F9030Z Drainage of Liver with Drainage Device, Percutaneous Approach (ICD-10-PCS; principal; 2017-06-12 12:00)
PROC: 0JH63WZ Insertion of Totally Implantable Vascular Access Device into Chest Subcutaneous Tissue and Fascia, Percutaneous Approach (ICD-10-PCS; 2017-06-17)
PROC: 05HM33Z Insertion of Infusion Device into Right Internal Jugular Vein, Percutaneous Approach (ICD-10-PCS; 2017-06-17)
PROC: B543ZZA Ultrasonography of Right Jugular Veins, Guidance (ICD-10-PCS; 2017-06-17)
DX: T85.638A Leakage of other specified internal prosthetic devices, implants and grafts, initial encounter (principal); K83.1 Obstruction of bile duct; C22.1 Intrahepatic bile duct carcinoma; C78.7 Secondary malignant neoplasm of liver and intrahepatic bile duct; J90 Pleural effusion, not elsewhere classified; J98.11 Atelectasis; R64 Cachexia; I25.10 Atherosclerotic heart disease of native coronary artery without angina pectoris; I10 Essential (primary) hypertension; E11.9 Type 2 diabetes mellitus without complications; E78.00 Pure hypercholesterolemia, unspecified; M54.5 Low back pain; D64.9 Anemia, unspecified; E87.6 Hypokalemia; K59.00 Constipation, unspecified; Y83.8 Other surgical procedures as the cause of abnormal reaction of the patient, or of later complication, without mention of misadventure at the time of the procedure; Z68.22 Body mass index [BMI] 22.0-22.9, adult; Z87.891 Personal history of nicotine dependence; Z95.5 Presence of coronary angioplasty implant and graft

== ENCOUNTER 2017-06-21 00:41 | Emergency (ER) | payer MEDICAID, OTHER ==
[2017-06-21 00:41] VITALS: BMI 22.4
[2017-06-21 01:00] VITALS: RESP 18; TEMP 97.8
--- NOTE | 2017-06-21 01:01 | ED PDOC ---
"Arrival/HPI <Stefano Cartwright - Last Filed: 06/21/17 03:40> - General Historian: Patient <Saroj Sargent - Last Filed: 06/22/17 00:15> - General Chief Complaint: Male Genitourinary Time Seen by Provider: 06/21/17 00:44 - History of Present Illness Narrative History of Present Illness (Text): 06/21/17 00:57 72yo male with PMhx of choleangiocarcinoma with liver mets, hypertension, Diabetes, CAD with stents, biliary dilatation who present with c/o b/l LE edema and genital swelling. the son states pain is currently getting chemotherapy and gets liver flush. States he usually gets retained fluid secondary to the flush for the liver mets, will get diuretics. Notes that the last time he had the flush was on Thursday and he was given Lasix for the LE edema. The son report that pt started complaining of worsening lower extremity edema with genital swelling. He denies pain to the legs and scrotum/penis. States he had lower back pain, which is chronic for him. He denies chest pain, SOB, diaphoresis, nausea, vomiting, any otehr complaint. (Saroj Sargent) Past Medical History - Provider Review Nursing Documentation Reviewed: Yes - Infectious Disease Hx of Infectious Diseases: None - Cardiac Hx Cardiac Disorders: Yes Hx Hypertension: Yes - Pulmonary Hx Respiratory Disorders: No - Neurological Hx Neurological Disorder: No - HEENT Hx HEENT Disorder: Yes - Renal Hx Renal Disorder: No - Endocrine/Metabolic Hx Diabetes Mellitus Type 2: Yes - Hematological/Oncological Hx Cancer: Yes Hx Chemotherapy: Yes - Integumentary Hx Dermatological Disorder: No - Musculoskeletal/Rheumatological Hx Musculoskeletal Disorders: Yes Hx Back Pain: Yes Hx Falls: No - Gastrointestinal Hx Gastrointestinal Disorders: Yes Hx Liver Failure: Yes Other/Comment: Biliary Drain placed one month ago 05/2017. Liver cancer- Chemotherapy - Genitourinary/Gynecological Hx Prostate Problems: Yes - Psychiatric Hx Psychophysiologic Disorder: No Hx Substance Use: No - Surgical History Hx Cardiac Catheterization: Yes Hx Coronary Stent: Yes - Anesthesia Hx Anesthesia: Yes Hx Anesthesia Reactions: Yes Hx Malignant Hyperthermia: No <Saroj Sargent - Last Filed: 06/22/17 00:15> Family/Social History - Physician Review Nursing Documentation Reviewed: Yes Family/Social History: Unknown Family HX Smoking Status: Never Smoked Hx Alcohol Use: No Hx Substance Use: No <Saroj Sargent A - Last Filed: 06/22/17 00:15> Allergies/Home Meds <Stefano Cartwright - Last Filed: 06/21/17 03:40> <Saroj Sargent A - Last Filed: 06/22/17 00:15> Allergies/Adverse Reactions: Allergies No Known Allergies Allergy (Verified 06/21/17 00:56) Home Medications: Home Meds Medication Instructions Recorded Confirmed Levothyroxine [Synthroid] 100 mcg PO DAILY 05/14/17 06/21/17 Home Med 30 mg PO DAILY 06/04/17 06/21/17 Review of Systems - Physician Review All systems were reviewed & negative as marked: Yes - Review of Systems Constitutional: Normal Eyes: Normal ENT: Normal Respiratory: Normal Cardiovascular: Edema. absent: Chest Pain, Palpitations, Calf Pain, ESCUDERO Gastrointestinal: Normal Genitourinary Male: Other (Genital swelling) Musculoskeletal: Normal Skin: Normal Neurological: Normal Endocrine: Normal Hemo/Lymphatic: Normal Psychiatric: Normal <Saroj Sargent A - Last Filed: 06/22/17 00:15> Physical Exam Vital Signs Reviewed: Yes Temperature: Afebrile Blood Pressure: Normal Pulse: Regular Respiratory Rate: Normal Appearance: Positive for: Well-Appearing, Non-Toxic, Comfortable Pain Distress: None Mental Status: Positive for: Alert and Oriented X 3 - Systems Exam Head: Present: Atraumatic, Normocephalic Pupils: Present: PERRL Extroacular Muscles: Present: EOMI Conjunctiva: Present: Normal Mouth: Present: Moist Mucous Membranes Neck: Present: Normal Range of Motion Respiratory/Chest: Present: Clear to Auscultation, Good Air Exchange. No: Respiratory Distress, Accessory Muscle Use Cardiovascular: Present: Regular Rate and Rhythm, Normal S1, S2. No: Murmurs Abdomen: No: Tenderness, Distention, Peritoneal Signs Genitourinary Male: Present: Penile Swelling, Testicle Swelling Back: Present: Normal Inspection Upper Extremity: Present: Normal Inspection. No: Cyanosis, Edema Lower Extremity: Present: Edema (4+ bipedal edema), Normal ROM. No: CALF TENDERNESS, Dominic's Sign, Tenderness Neurological: Present: GCS=15, CN II-XII Intact, Speech Normal Skin: Present: Warm, Dry, Normal Color. No: Rashes Psychiatric: Present: Alert, Oriented x 3, Normal Insight, Normal Concentration <Saroj Sargent A - Last Filed: 06/22/17 00:15> Vital Signs Temp Pulse Resp BP Pulse Ox 06/21/17 04:20 75 18 117/75 100 06/21/17 03:57 75 18 117/75 98 06/21/17 01:38 109/70 06/21/17 01:00 97.8 F 82 18 112/71 97 Medical Decision Making <Stefano Cartwright - Last Filed: 06/21/17 03:40> <Saroj Sargent A - Last Filed: 06/22/17 00:15> ED Course and Treatment: 06/21/17 01:39 Patient signed out to me by Saroj, pending blood work and ultrasound. Patient complaining of chronic back pain, usually takes Oxycodone. Patient given a dose of Oxycodone. 06/21/17 02:35 Ultrasound Scrotum reviewed, shows: Right testicle: Within normal limits in appearance. Measures 3.2 x 1.8 x 1.6 cm. Flow seen in the right testicle on color and Doppler imaging, with no evidence of torsion. Right epididymis: Within normal limits in appearance. Head measures 1.4 x 0.9 cm. Left testicle: Within normal limits in appearance. Measures 3.2 x 1.2 x 1.8 cm. Flow seen in the left testicle on color and Doppler imaging, with no evidence of torsion. Left epididymis: Within normal limits in appearance. Head measures 0.9 x 0.7 cm. Hydrocoele: Tiny right hydrocele. No significant left hydrocele. Varicocele: Left sided varicocele. Other findings: Diffuse edema/swelling of the scrotal soft tissues. Thickening of the scrotal skin. No definite focal fluid collection. IMPRESSION: GUERRERO ESCAMILLA | Final Radiology Report CONFIDENTIALITY STATEMENT This report is intended only for use by the referring physician, and only in accordance with law. If you received this in error, call [phone]. Page 2 of 2 Diffuse scrotal soft tissue edema. This could be due to cellulitis. Non- inflammatory causes of soft tissue edema could also have this appearance. Otherwise, no evidence of significant acute process. No evidence of testicular torsion or epididymitis. Left sided varicocele. Tiny right hydrocele. (Stefano Cartwright) 06/21/17 01:10 72yo male with history of choleangio carcinoma present with complaint of LE edema and genital swelling. Labs ordered Testes US and Lower Doppler US ordered Lasix 60mg ordered Case was DW Dr. Headley, pt's Oncologist. He notes that pt had Chemo on Thursday and thinks his edema is secondary to fluid overload from the chemo. He states patient usually gets Lasix after the chemo. States pt's LFT is improved from the last lab. Recommends Diuretic for the pt and US to r/o DVT. States pt should be DC home if US is negative with diuretics to f/u with his office next week. 06/21/17 01:37 Case was endorsed to Dr. Cartwright to f/u Labs, US and dispo pt accordingly. (Saroj Sargent) - Lab Interpretations Lab Results: 06/21/17 01:25 06/21/17 01:25 Lab Results 06/21/17 01:25: PT 12.0, INR 1.05, APTT 38.3 H 06/21/17 01:25: Sodium 138, Potassium 3.8, Chloride 103, Carbon Dioxide 27, Anion Gap 13, BUN 16, Creatinine 0.8, Est GFR ( Amer) > 60, Est GFR (Non- Af Amer) > 60, Random Glucose 142 H, Calcium 8.2 L, Total Bilirubin 1.6 H, AST 44, ALT 48, Alkaline Phosphatase 171 H, Total Protein 5.3 L, Albumin 2.7 L, Globulin 2.6, Albumin/Globulin Ratio 1.0 L 06/21/17 01:25: WBC 5.5 D, RBC 3.37 L, Hgb 10.2 L, Hct 30.6 L, MCV 90.8, MCH 30.3, MCHC 33.3, RDW 16.2 H, Plt Count 270, MPV 9.5, Gran % 67.1, Lymph % (Auto ) 21.1 L, [place] % (Auto) 9.4 H, Eos % (Auto) 2.2, Baso % (Auto) 0.2, Gran # 3.72 , Lymph # (Auto) 1.2, [place] # (Auto) 0.5, Eos # (Auto) 0.1, Baso # (Auto) 0.01 - RAD Interpretation Radiology Orders: 06/21/17 01:04 DUPLEX LOWER EXTRM VEIN BILAT [US] Stat TESTES DUPLEX COMPLETE [US] Stat - Medication Orders Current Medication Orders: Discontinued Medications Furosemide (Lasix) 60 mg IVP STAT STA Stop: 06/21/17 01:19 Last Admin: 06/21/17 01:38 Dose: 60 mg MAR Blood Pressure Document 06/21/17 01:38 AD (Rec: 06/21/17 01:39 AD [id number]) Blood Pressure Blood Pressure (100/60-150/90) 109/70 IVP Administration Document 06/21/17 01:38 AD (Rec: 06/21/17 01:39 AD [id number]) Charges for Administration # of IVP Administrations 1 Oxycodone/Acetaminophen (Percocet 5/325 Mg Tab) 1 tab PO STAT STA Stop: 06/21/17 01:38 Last Admin: 06/21/17 01:56 Dose: 1 tab MAR Pain Assessment Document 06/21/17 01:56 AD (Rec: 06/21/17 01:56 AD [id number]) Pain Reassessment Is this a pain reassessment? No Presence of Pain Presence of Pain Yes Pain Scale Used Pain Scale Used Numeric Location Upper or Lower Lower Pain Location Body Site Back Description Intensity of Pain at present 8 Pain Behavior Facial Grimacing - Scribe Statement The provider has reviewed the documentation as recorded by the Scribe <Stefano Cartwright - Last Filed: 06/21/17 03:40> <Saroj Sargent - Last Filed: 06/22/17 00:15> - Scribe Statement Ruth Farris All medical record entries made by the Scribe were at my direction and personally dictated by me. I have reviewed the chart and agree that the record accurately reflects my personal performance of the history, physical exam, medical decision making, and the department course for this patient. I have also personally directed, reviewed, and agree with the discharge instructions and disposition. (Stefano Cartwright) Disposition/Present on Arrival <Stefano Cartwright - Last Filed: 06/21/17 03:40> - Present on Arrival Any Indicators Present on Arrival: No History of DVT/PE: No History of Uncontrolled Diabetes: No Urinary Catheter: No History of Decub. Ulcer: No History Surgical Site Infection Following: None - Disposition Have Diagnosis and Disposition been Completed?: Yes Disposition Time: 03:10 <Saroj Sargent - Last Filed: 06/22/17 00:15> - Disposition Diagnosis: Leg swelling, Genital swelling Disposition: HOME/ ROUTINE Condition: IMPROVED Discharge Instructions (ExitCare): Dependent Edema (DC) Additional Instructions: Ms Escamilla, thank you for letting us take care of you today. Your provider was Dr. Cartwright. You were treated for Leg and Genital Skin Swelling. The emergency medical care you received today was directed at your acute symptoms. If you were prescribed any medication, please fill it and take as directed. It may take several days for your symptoms to resolve. Return to the Emergency Department if your symptoms worsen, do not improve, or if you have any other problems. Please contact your doctor or call one of the physicians/clinics you have been referred to that are listed on the Patient Visit Information form that is included in your discharge packet. Bring any paperwork you were given at discharge with you along with any medications you are taking to your follow up visit. Our treatment cannot replace ongoing medical care by a primary care provider (PCP) outside of the emergency department. Thank you for allowing the [facility] team to be part of your care today. If you had an X-Ray or CT scan: A Radiologist will review the ED reading if any change in treatment is needed we will contact you. If you had a blood, urine, or wound culture: It will take several days for the results, if any change in treatment is needed we will contact you. If you had an STI test: It will take 48 hours for the results. Please call after 1 week if you have not heard back. Prescriptions: Furosemide [Lasix] 20 mg PO DAILY #20 tab Referrals: Lucina Encarnacion, [Primary Care Provider] - Follow up with primary Michael Headley MD [Staff Provider] - Follow up with primary Forms: Undertone (And[place]ran), WORK NOTE"
[2017-06-21] MEDS ORDERED: Oxycodone/Acetaminophen 5/325 mg Tab PO STA (01:37)
[2017-06-21 01:46] LABS: BASO # 0.01 K/mm3 (0.0-2.0); BASO % 0.2 % (0.0-3.0); EOS # 0.1 (0.0-0.7); EOS % 2.2 % (1.5-5.0); GRAN # 3.72 (1.4-6.5); GRAN % 67.1 % (50.0-68.0); HEMOGLOBIN 10.2 g/dL (14.0-18.0); LYMPH # 1.2 (1.2-3.4); LYMPH % 21.1 % (22.0-35.0); MEAN CELL VOLUME 90.8 fl (80.0-105.0); MEAN CORPUSCULAR HEMOGLOBIN 30.3 pg (25.0-35.0); MEAN CORPUSCULAR HGB CONC 33.3 g/dl (31.0-37.0); MEAN PLATELET VOLUME 9.5 fl (7.0-11.0); MONO # 0.5 (0.1-0.6); MONO % 9.4 % (1.0-6.0); RBC 3.37 10^6/uL (3.5-6.1); RED CELL DISTRIBUTION WIDTH 16.2 % (11.5-14.5); WHITE BLOOD COUNT 5.5 10^3/ul (4.5-11.0)
[2017-06-21 02:00] LABS: INR 1.05 (0.93-1.08); PARTIAL THROMBOPLASTIN TIME 38.3 Seconds (25.1-36.5)
[2017-06-21 02:06] LABS: ALBUMIN 2.7 g/dL (3.0-4.8); ALT/SGPT 48 U/L (7-56); AST/SGOT 44 U/L (17-59); BLOOD UREA NITROGEN 16 mg/dL (7-21); CALCIUM 8.2 mg/dL (8.4-10.5); GFR AFRICAN-AMERICAN > 60; GFR NON-AFRICAN AMERICAN > 60
--- NOTE | 2017-06-21 02:30 | US ---
EXAM: US Scrotum EXAM DATE/TIME: 06/21/2017 1:04 AM CLINICAL HISTORY: 72 years old, male; Signs and symptoms; Swelling, testicles or scrotum; Additional info: Testicle swelling TECHNIQUE: Real-time ultrasound of the scrotum with color Doppler and image documentation. COMPARISON: No relevant prior studies available. FINDINGS: Right testicle: Within normal limits in appearance. Measures 3.2 x 1.8 x 1.6 cm. Flow seen in the right testicle on color and Doppler imaging, with no evidence of torsion. Right epididymis: Within normal limits in appearance. Head measures 1.4 x 0.9 cm. Left testicle: Within normal limits in appearance. Measures 3.2 x 1.2 x 1.8 cm. Flow seen in the left testicle on color and Doppler imaging, with no evidence of torsion. Left epididymis: Within normal limits in appearance. Head measures 0.9 x 0.7 cm. [place]: Tiny right hydrocele. No significant left hydrocele. Varicocele: Left sided varicocele. Other findings: Diffuse edema/swelling of the scrotal soft tissues. Thickening of the scrotal skin. No definite focal fluid collection. IMPRESSION: Diffuse scrotal soft tissue edema. This could be due to cellulitis. Non-inflammatory causes of soft tissue edema could also have this appearance. Otherwise, no evidence of significant acute process. No evidence of testicular torsion or epididymitis. Left sided varicocele. Tiny right hydrocele. See above for remaining findings.
[2017-06-21 03:58] VITALS: BP 117/75; PULSE 75
[2017-06-21 04:22] VITALS: O2SAT 100
--- NOTE | 2017-06-21 18:11 | US ---
HISTORY: Leg pain and swelling. Evaluate for DVT PHYSICIAN(S): Duarte uGerra MD. TECHNIQUE: Duplex sonography and color-flow Doppler with graded compression were used to evaluate the deep venous systems of both lower extremities. FINDINGS: The visualized deep venous systems of both lower extremities are sonographically normal and compressible. Normal wave forms and augmentation are seen. There is no sonographic evidence for deep venous thrombosis in the visualized segments of both lower extremities. IMPRESSION: No sonographic evidence for deep venous thrombosis in the visualized segments of both lower extremities.
== END 2017-06-21 04:22 | disposition home or self-care (01) ==
LOC: ED 00:41
DX: M79.89 Other specified soft tissue disorders (principal); N50.89 Other specified disorders of the male genital organs; E11.9 Type 2 diabetes mellitus without complications; I10 Essential (primary) hypertension; I25.10 Atherosclerotic heart disease of native coronary artery without angina pectoris
CPT/HCPCS: 80053; 85025; 85610; 85730; 93970; 93975; 96374; 99284; J1940

== ENCOUNTER 2017-07-08 16:17 | Inpatient (IN) | payer MEDICAID, OTHER ==
[2017-07-08 16:27] VITALS: BMI 25.2
--- NOTE | 2017-07-08 16:56 | ED PDOC ---
Arrival/HPI - General Chief Complaint: Abnormal Labs Time Seen by Provider: 07/08/17 16:38 Historian: Patient - History of Present Illness Narrative History of Present Illness (Text): 07/08/17 16:56 Patient is a 72 year old male, whose past medical history includes liver CA receiving chemotherapy, hypertension, diabetes, and biliary stents, CAD, obstructive jaundice, liver mass, intrahepatic ducal dilatation, s/p biliary drain placement, presents to the emergency department accompanied by son for generalized abdominal pain since this morning. As per son, patient has not moved his bowel since 8 days and had a sensation of fever and chills earlier this week. Son informs decreased appetite and informs patient has not eaten today. States that abdominal pain started this AM, diffuse. Patient also has had cough and shortness of breath over past several days. Denies chest pain. Patient has had swelling to legs for several weeks. No PMD Time/Duration: 4-6 hours Symptom Onset: Gradual Symptom Course: Unchanged Quality: Aching Activities at Onset: Light Context: Home Past Medical History - Provider Review Nursing Documentation Reviewed: Yes - Infectious Disease Hx of Infectious Diseases: None - Cardiac Hx Cardiac Disorders: Yes Hx Hypertension: Yes - Pulmonary Hx Respiratory Disorders: No - Neurological Hx Neurological Disorder: No - HEENT Hx HEENT Disorder: Yes - Renal Hx Renal Disorder: No - Endocrine/Metabolic Hx Diabetes Mellitus Type 2: Yes - Hematological/Oncological Hx Cancer: Yes Hx Chemotherapy: Yes - Integumentary Hx Dermatological Disorder: No - Musculoskeletal/Rheumatological Hx Musculoskeletal Disorders: Yes Hx Back Pain: Yes Hx Falls: No - Gastrointestinal Other/Comment: Biliary Drain placed one month ago 05/2017Liver cancer- Chemotherapy - Genitourinary/Gynecological Hx Prostate Problems: Yes - Psychiatric Hx Psychophysiologic Disorder: No Hx Substance Use: No - Surgical History Hx Cardiac Catheterization: Yes Hx Coronary Stent: Yes - Anesthesia Hx Anesthesia: Yes Hx Anesthesia Reactions: Yes Hx Malignant Hyperthermia: No Family/Social History - Physician Review Nursing Documentation Reviewed: Yes Family/Social History: No Known Family HX Smoking Status: Never Smoked Hx Alcohol Use: No Hx Substance Use: No Allergies/Home Meds Allergies/Adverse Reactions: Allergies No Known Allergies Allergy (Verified 06/21/17 00:56) Home Medications: Home Meds Medication Instructions Recorded Confirmed Levothyroxine [Synthroid] 100 mcg PO DAILY 05/14/17 07/07/17 Home Med 30 mg PO DAILY 06/04/17 07/03/17 Aluminum Hydroxide/Magnesium H 30 ml PO Q4 06/30/17 07/03/17 [Maalox 30 ml] Zaroxolyn mg PO MON 07/03/17 Zaroxolyn mg PO WM 07/03/17 Polyethylene Glycol 3350 [Miralax] 17 gm PO BID 07/08/17 07/08/17 Review of Systems - Physician Review All systems were reviewed & negative as marked: Yes - Review of Systems Constitutional: Fatigue, Weight Change, Fevers. absent: Night Sweats Eyes: absent: Vision Changes ENT: absent: Sore Throat Respiratory: SOB Cardiovascular: Edema, ESCUDERO. absent: Chest Pain Gastrointestinal: Abdominal Pain, Constipation, Appetite Changes (decreased appetite). absent: Diarrhea, Nausea, Vomiting Genitourinary Male: absent: Dysuria, Hematuria Musculoskeletal: Back Pain. absent: Neck Pain Skin: absent: Rash Neurological: absent: Headache, Dizziness, Focal Weakness Endocrine: absent: Polyuria Hemo/Lymphatic: absent: Easy Bleeding Psychiatric: absent: Depression Physical Exam - Physical Exam Narrative Physical Exam (Text): 07/08/17 17:04 Head: Atraumatic. Normocephalic. Eyes: PERRL. EOMI. Conjunctivae are pale. Anicteric ENT: Mucous membranes are dry. No pharyngeal erythema. Neck: Supple. Full ROM. No JVD. No lymphadenopathy. No meningeal signs. Cardiovascular: Regular rate. Regular rhythm. Systolic murmur. Pulmonary/Chest: No evidence of respiratory distress. Rhonchi/rales at right base. No accessory muscle usage. Abdominal: Distended. Diffuse pain, generalized. There is drainage tube noted in right upper quadrant with clear drainage noted, no erythema or purulence. Back: No CVA tenderness. Paraspinal tenderness. Extremities: Bilateral lower extremity edema, no calf pain. Skin: No erythema or streaking or cellulitis noted Neurological: Alert, awake, with no focal motor or sensory deficits. No slurred speech. No lethargy. Rectal: no melena or gross bleeding Psychiatric: Good eye contact. Normal interaction, affect, and behavior. Vital Signs Reviewed: Yes Vital Signs Temp Pulse Resp BP Pulse Ox 07/08/17 22:19 98.9 F 141 H 18 98/60 L 98 07/08/17 21:30 100.5 F H 07/08/17 18:04 100.5 F H 95 H 18 130/63 99 07/08/17 16:32 97.5 F L 07/08/17 16:30 92 H 18 110/58 L 100 Temperature: Afebrile Blood Pressure: Hypotensive Pulse: Tachycardic Respiratory Rate: Normal Appearance: Positive for: Ill-Appearing, Uncomfortable Pain Distress: Moderate Mental Status: Positive for: Alert and Oriented X 3 Medical Decision Making ED Course and Treatment: 07/08/17 17:03 Impression: 72 year old male presents to the emergency department for abdominal pain since this morning. Plan: -- EKG -- Abd/Pelvis CT -- Chest X-ray -- Labs -- Blood Culture -- Urine Culture -- Venous Blood Gas -- Urinalysis -- Reassess and disposition Progress Notes: Patient's history supplemented by son at bedside and I reviewed case with Dr. Headley. He has diffuse pain noted on abdominal exam, Given history of increased ascites suspect possible sbp. IV rocephin initiated. After pain medication on re-evaluation he is comfortable. CXR abnormal: 07/08/2017 18:43 Chest X-ray IMPRESSION: Right lower lobe infiltrate/right pleural effusion new findings compared to the prior Chest X-ray. Dictator: Natan Sotelo MD No respiratory distress noted. Patient will be treated for possible pneumonia. Given leg edema cannot exclude compressive phenomenon vs cardiac process. Hypokalemia noted, although heart rate and BP stable on initial ED evalatuion. IV kcl ordered. 07/08/2017 18:57 Abd/Pelvis CT IMPRESSION: Marked increase in intra-abdominal and pelvis ascites. Increase in right pleural effusion and compressive atelectasis. Stable tumor burden in the liver. Dictator: Natan Sotelo MD Case d/w Dr. Headley, requests admission to hospitalist. Accepted by Dr. Zuniga to telemetry bed. 07/08/17 23:25 Requested admitting physician to reassess patient as patient on floor admitted. Dr. Zuniga notified will evaluate patient - Lab Interpretations Microbiology Results: Microbiology Results 07/08/17 18:05 Blood Blood Culture - Final NO GROWTH AFTER 5 DAYS 07/08/17 17:35 Blood Blood Culture - Final NO GROWTH AFTER 5 DAYS 07/08/17 17:35 Blood Gram Stain - Final TEST NOT PERFORMED 07/08/17 17:35 Urine Urine Culture - Final No Growth (<1,000 CFU/ML) Lab Results: 07/08/17 17:35 07/08/17 17:35 Lab Results 07/08/17 17:35: Magnesium 1.9 07/08/17 17:35: Sodium 132, Chloride 95 L, Potassium 2.5 L* D, Carbon Dioxide 27 , Anion Gap 13, BUN 14, Creatinine 0.8, Est GFR ( Amer) > 60, Est GFR ( Non-Af Amer) > 60, Random Glucose 181 H, Calcium 7.9 L, Total Bilirubin 1.3, AST 39, ALT 51, Alkaline Phosphatase 287 H, Lactate Dehydrogenase 390, Total Creatine Kinase 41, Troponin I 0.02, NT-Pro-B Natriuret Pep 655 H, Total Protein 5.5 L, Albumin 2.7 L, Globulin 2.9, Albumin/Globulin Ratio 0.9 L 07/08/17 17:35: pO2 53, VBG pH 7.49 H, VBG pCO2 38.0 L, VBG HCO3 29.0 H, VBG Total CO2 30.2 H, VBG O2 Sat (Calc) 92.0 H, VBG Base Excess 5.4 H, VBG Potassium 2.3 L*, Sodium 132.0, Chloride 98.0, Glucose 191 H, Lactate 1.8, FiO2 21.0, Venous Blood Potassium 2.3 L* 07/08/17 17:35: Urine Color Yellow, Urine Appearance Clear, Urine pH 6.0, Ur Specific [place] 1.015, Urine Protein Negative, Urine Glucose (UA) Negative, Urine Ketones Negative, Urine Blood Negative, Urine Nitrate Negative, Urine Bilirubin Negative, Urine Urobilinogen 0.2, Ur Leukocyte Esterase Negative 07/08/17 17:35: PT 14.5 H, INR 1.27 H, APTT 27.0 07/08/17 17:35: WBC 3.0 L D, RBC 3.40 L, Hgb 10.3 L, Hct 29.8 L, MCV 87.6, MCH 30.3, MCHC 34.6, RDW 15.4 H, Plt Count 88 L, MPV 8.9, Gran % 79.3 H, Lymph % ( Auto) 18.0 L, [place] % (Auto) 2.7, Eos % (Auto) 0.0 L, Baso % (Auto) 0.0, Gran # 2.34, Lymph # (Auto) 0.5 L, [place] # (Auto) 0.1, Eos # (Auto) 0.0, Baso # (Auto) 0.00 I have reviewed the lab results: Yes - RAD Interpretation Radiology Orders: 07/08/17 17:10 ABD & PELVIS W/O PO OR IV CONT [CT] Stat CHEST PORTABLE [RAD] Stat - EKG Interpretation EKG Interpretation (Text): EKG at 18:20 normal sinus rhythm rate of 95 with low voltage qrs, left axis deviation Interpreted by ED Physician: Yes Type: 12 lead EKG - Medication Orders Current Medication Orders: Al Hydrox/Mg Hydrox/Simethicone (Maalox Plus 30 Ml) 30 ml PO Q4 [facility] Last Admin: 07/15/17 12:25 Dose: Not Given Non-Admin Reason: Diarrhea Aspirin (Ecotrin) 81 mg PO DAILY [facility] Last Admin: 07/15/17 09:22 Dose: 81 mg Diltiazem HCl (Cardizem) 30 mg PO BID [facility] Last Admin: 07/15/17 09:21 Dose: 30 mg MAR Pulse and Blood Pressure Document 07/15/17 09:21 VS (Rec: 07/15/17 09:21 VS [place] [id number]) Pulse Pulse Rate (60-90) 80 Blood Pressure Blood Pressure (100/60-150/90) 106/60 Enoxaparin Sodium (Lovenox) 70 mg SC Q12H [facility] PRN Reason: Protocol Last Admin: 07/14/17 21:29 Dose: 70 mg Subcutaneous Administrations Document 07/14/17 21:29 MV (Rec: 07/14/17 21:29 MV [id number]) Charges for Administration # of Subcutaneous Administrations 1 Furosemide (Lasix) 20 mg PO Q48H [facility] Last Admin: 07/14/17 11:36 Dose: 20 mg MAR Blood Pressure Document 07/14/17 11:36 SOUSV (Rec: 07/14/17 11:36 SOUSV [id number]) Blood Pressure Blood Pressure (100/60-150/90) 117/68 Piperacillin Sod/Tazobactam Sod (Zosyn 3.375 In Ns 100ml) 100 mls @ 200 mls/hr IVPB Q6 NINA PRN Reason: Protocol Stop: 07/15/17 18:29 Last Admin: 07/15/17 12:37 Dose: 200 mls/hr eMAR Start Stop Document 07/15/17 12:37 VS (Rec: 07/15/17 12:37 VS [id number]) Intravenous Solution Start Date 07/15/17 Start Time 12:37 End Date 07/15/17 End time 13:07 Total Infusion Time 30 Insulin Human Regular (Humulin R Low) 0 units SC ACHS NINA PRN Reason: Protocol Last Admin: 07/15/17 12:25 Dose: Not Given Non-Admin Reason: Blood Sugar Parameter [facility] Blood Glucose Document 07/15/17 12:25 VS (Rec: 07/15/17 12:25 VS [id number]) Blood Glucose Finger Stick Blood Glucose (70-120) 122 Levothyroxine Sodium (Synthroid) 100 mcg PO DAILY [facility] Last Admin: 07/15/17 09:20 Dose: 100 mcg Metoprolol Tartrate (Lopressor) 5 mg IVP Q6 PRN PRN Reason: Heart rate Morphine Sulfate (Morphine) 4 mg IVP Q6H [facility] Last Admin: 07/15/17 08:12 Dose: Morphine Sulfate (Morphine) 4 mg IVP Q3 PRN PRN Reason: Pain, severe (8-10) Last Admin: 07/15/17 06:08 Dose: 4 mg [facility] Pain Assessment Document 07/15/17 06:08 MV (Rec: 07/15/17 06:09 MV [id number]) Pain Reassessment Is this a pain reassessment? No Presence of Pain Presence of Pain Yes Pain Scale Used Pain Scale Used Numeric Location Pain Location Body Site Back Description Description Intermittent Intensity of Pain at present 9 Pain Behavior Moaning Irritability Facial Grimacing Alleviating Factors/Management Medication Techniques Alleviating Factors Medication IVP Administration Document 07/15/17 06:08 MV (Rec: 07/15/17 06:09 MV [id number]) Charges for Administration # of IVP Administrations 1 Re-Assess: [facility] Pain Assessment Document 07/15/17 07:08 VS (Rec: 07/15/17 08:12 VS [id number]) Pain Reassessment Is this a pain reassessment? Yes Sleep Is patient sleeping during reassessment? No Presence of Pain Presence of Pain No Polyethylene Glycol (Miralax) 17 gm PO BID [facility] Last Admin: 07/15/17 09:22 Dose: Not Given Non-Admin Reason: Diarrhea Senna/Docusate Sodium (Senokot S 50 Mg-8.6 Mg) 1 tab PO BID [facility] Last Admin: 07/15/17 09:24 Dose: Not Given Non-Admin Reason: Diarrhea Spironolactone (Aldactone) 12.5 mg PO DAILY [facility] Last Admin: 07/15/17 09:21 Dose: 12.5 mg Sucralfate (Carafate Oral Susp) 1 gm PO BID [facility] Last Admin: 07/15/17 09:22 Dose: 1 gm Warfarin Sodium (Coumadin) 10 mg PO 1800 [facility] PRN Reason: Protocol Last Admin: 07/14/17 17:36 Dose: 10 mg MAR INR Result Document 07/14/17 17:36 SOUSV (Rec: 07/14/17 17:37 SOUSV [id number]) INR INR 1.6 Discontinued Medications Acetaminophen (Tylenol 325mg Tab) 650 mg PO ONCE STA Stop: 07/08/17 20:12 Last Admin: 07/08/17 21:30 Dose: 650 mg MAR Pain/Vitals Document 07/08/17 21:30 RG (Rec: 07/08/17 21:30 RG [id number]) Vitals Temperature (97.6 F-99.6 F) 100.5 F Temperature Source Rectal Aspirin (Aspirin Chewable) 81 mg PO DAILY [facility] Last Admin: 07/11/17 08:36 Dose: Benzocaine/Menthol (Cepacol Sore Throat) 1 liliana MT Q2H PRN PRN Reason: Sore Throat Last Admin: 07/13/17 00:19 Dose: 1 liliana Digoxin (Lanoxin) 0.5 mg IVP ONCE ONE Stop: 07/09/17 02:12 Last Admin: 07/09/17 02:29 Dose: 0.5 mg MAR Apical Pulse Rate Document 07/09/17 02:29 RM (Rec: 07/09/17 02:30 RM [id number]) Apical Pulse Rate Apical Pulse Rate (60-90 beats/min) 143 IVP Administration Document 07/09/17 02:29 RM (Rec: 07/09/17 02:30 RM [id number]) Charges for Administration # of IVP Administrations 1 Docusate Sodium (Colace) 100 mg PO BID PRN PRN Reason: Constipation Last Admin: 07/12/17 09:09 Dose: 100 mg Enoxaparin Sodium (Lovenox) 40 mg SC DAILY NINA PRN Reason: Protocol Enoxaparin Sodium (Lovenox) 70 mg SC STAT STA PRN Reason: Protocol Stop: 07/09/17 15:40 Last Admin: 07/09/17 16:10 Dose: 70 mg Subcutaneous Administrations Document 07/09/17 16:10 BIR (Rec: 07/09/17 16:11 [id number]) Charges for Administration # of Subcutaneous Administrations 1 Enoxaparin Sodium (Lovenox) 70 mg SC STAT STA PRN Reason: Protocol Stop: 07/10/17 07:26 Last Admin: 07/10/17 07:42 Dose: 70 mg Subcutaneous Administrations Document 07/10/17 07:42 BIR (Rec: 07/10/17 07:42 [email or web address]) Charges for Administration # of Subcutaneous Administrations 1 Enoxaparin Sodium (Lovenox) 60 mg SC Q12H NINA PRN Reason: Protocol Last Admin: 07/10/17 13:53 Dose: Not Given Non-Admin Reason: Patient in OR/Vascular Enoxaparin Sodium (Lovenox) 60 mg SC Q12H NINA PRN Reason: Protocol Furosemide (Lasix) 20 mg IVP Q12 NINA Last Admin: 07/09/17 16:10 Dose: Furosemide (Lasix) 40 mg IVP ONCE ONE Stop: 07/09/17 01:13 Last Admin: 07/09/17 01:32 Dose: 40 mg MAR Blood Pressure Document 07/09/17 01:32 RM (Rec: 07/09/17 01:32 RM [id number]) Blood Pressure Blood Pressure (100/60-150/90) 96/68 IVP Administration Document 07/09/17 01:32 RM (Rec: 07/09/17 01:32 RM [id number]) Charges for Administration # of IVP Administrations 1 Hydromorphone HCl (Dilaudid) 1 mg IVP STAT STA Stop: 07/08/17 17:45 Last Admin: 07/08/17 17:57 Dose: 1 mg MAR Pain Assessment Document 07/08/17 17:57 LA (Rec: 07/08/17 17:58 LA [id number]) Pain Reassessment Is this a pain reassessment? No Sleep Is patient sleeping during reassessment? No Presence of Pain Presence of Pain Yes Pain Scale Used Pain Scale Used Numeric Description Description Constant IVP Administration Document 07/08/17 17:57 LA (Rec: 07/08/17 17:58 LA [id number]) Charges for Administration # of IVP Administrations 1 Re-Assess: MAR Pain Assessment Document 07/08/17 18:57 LA (Rec: 07/08/17 19:24 LA [id number]) Pain Reassessment Is this a pain reassessment? Yes Sleep Is patient sleeping during reassessment? Yes Hydromorphone HCl (Dilaudid) 0.5 mg IVP Q4H PRN PRN Reason: Pain, severe (8-10) Last Admin: 07/09/17 10:50 Dose: 0.5 mg MAR Pain Assessment Document 07/09/17 10:50 BIR (Rec: 07/09/17 10:50 BIR [place] [id number]) Pain Reassessment Is this a pain reassessment? No Sleep Is patient sleeping during reassessment? No Presence of Pain Presence of Pain Yes IVP Administration Document 07/09/17 10:50 BIR (Rec: 07/09/17 10:50 BIR [place] [id number]) Charges for Administration # of IVP Administrations 1 Potassium Chloride (Potassium Chloride 10 Meq/100 Ml) 10 meq in 100 mls @ 50 mls/hr IVPB Q2H NINA Stop: 07/08/17 22:44 Last Admin: 07/08/17 23:54 Dose: 50 mls/hr eMAR Start Stop Document 07/08/17 23:54 RM (Rec: 07/08/17 23:55 RM [id number]) Intravenous Solution Start Date 07/08/17 Start Time 23:55 End Date 07/09/17 End time 01:55 Total Infusion Time 120 Ceftriaxone Sodium (Rocephin 1 Gram Ivpb) 1 gm in 100 mls @ 200 mls/hr IVPB ONCE STA PRN Reason: Protocol Stop: 07/08/17 20:24 Last Admin: 07/08/17 21:31 Dose: 200 mls/hr eMAR Start Stop Document 07/08/17 21:31 RG (Rec: 07/08/17 21:31 RG [id number]) Intravenous Solution Start Date 07/08/17 Start Time 21:31 Azithromycin (Zithromax 500mg In Ns) 500 mg in 250 mls @ 166.667 mls/hr IVPB STAT STA PRN Reason: Protocol Stop: 07/08/17 21:24 Last Admin: 07/08/17 21:32 Dose: 166.667 mls/hr eMAR Start Stop Document 07/08/17 21:32 RG (Rec: 07/08/17 21:32 RG [id number]) Intravenous Solution Start Date 07/08/17 Start Time 21:32 Ceftriaxone Sodium (Rocephin 1 Gram Ivpb) 1 gm in 100 mls @ 100 mls/hr IVPB DAILY NINA PRN Reason: Protocol Last Admin: 07/10/17 09:14 Dose: 100 mls/hr eMAR Start Stop Document 07/10/17 09:14 BIR (Rec: 07/10/17 09:14 BIR [id number]) Intravenous Solution Start Date 07/10/17 Start Time 09:14 End Date 07/10/17 End time 10:30 Total Infusion Time 76 Azithromycin (Zithromax 500mg In Ns) 500 mg in 250 mls @ 167 mls/hr IVPB DAILY NINA PRN Reason: Protocol Last Admin: 07/12/17 09:10 Dose: 167 mls/hr eMAR Start Stop Document 07/12/17 09:10 VS (Rec: 07/12/17 09:10 VS [id number]) Intravenous Solution Start Date 07/12/17 Start Time 09:10 End Date 07/12/17 End time 10:40 Total Infusion Time 90 Lactated Ringer's (Lactated Ringer's) 1,000 mls @ 50 mls/hr IV .Q20H NINA Last Admin: 07/09/17 22:08 Dose: Potassium Chloride (Potassium Chloride 10 Meq/100 Ml) 10 meq in 100 mls @ 50 mls/hr IVPB Q1H NINA Stop: 07/09/17 10:44 Last Admin: 07/09/17 10:47 Dose: 50 mls/hr eMAR Start Stop Document 07/09/17 10:47 BIR (Rec: 07/09/17 10:48 BIR [id number]) Intravenous Solution Start Date 07/09/17 Start Time 13:00 End Date 07/09/17 End time 15:00 Total Infusion Time 120 Piperacillin Sod/Tazobactam Sod (Zosyn 3.375 In Ns 100ml) 100 mls @ 200 mls/hr IVPB Q6 NINA PRN Reason: Protocol Last Admin: 07/13/17 23:25 Dose: 200 mls/hr eMAR Start Stop Document 07/13/17 23:25 OLIVD (Rec: 07/13/17 23:26 OLIVD [id number]) Intravenous Solution Start Date 07/13/17 Start Time 23:25 End Date 07/13/17 End time 23:55 Total Infusion Time 30 Piperacillin Sod/Tazobactam Sod (Zosyn 3.375 In Ns 100ml) 100 mls @ 200 mls/hr IVPB Q6H NINA PRN Reason: Protocol Stop: 07/14/17 17:44 Last Admin: 07/14/17 17:42 Dose: 200 mls/hr eMAR Start Stop Document 07/14/17 17:42 SOUSV (Rec: 07/14/17 17:42 SOUSV [id number]) Intravenous Solution Start Date 07/14/17 Start Time 17:42 End Date 07/14/17 End time 18:12 Total Infusion Time 30 Lactulose (Enulose) 20 gm PO ONCE STA Stop: 07/08/17 21:01 Last Admin: 07/08/17 21:52 Dose: 20 gm Lactulose (Generlac) 200 gm SD ONCE ONE Stop: 07/09/17 00:00 Last Admin: 07/09/17 04:15 Dose: Methylnaltrexone [place] (Relistor) 8 mg SC ONCE ONE Stop: 07/09/17 04:05 Last Admin: 07/09/17 04:30 Dose: 8 mg Subcutaneous Administrations Document 07/09/17 04:30 RM (Rec: 07/09/17 05:06 RM [id number]) Charges for Administration # of Subcutaneous Administrations 1 Mineral Oil (Fleet Mineral Oil Enema) 135 ml RC ONCE ONE Stop: 07/09/17 03:21 Last Admin: 07/09/17 05:08 Dose: 135 ml Morphine Sulfate (Morphine) 2 mg IVP Q3H PRN PRN Reason: Pain, severe (8-10) Last Admin: 07/10/17 02:18 Dose: 2 mg IVP Administration Document 07/10/17 02:18 RM (Rec: 07/10/17 02:18 RM [id number]) Charges for Administration # of IVP Administrations 1 Morphine Sulfate (Morphine) 2 mg IVP STAT STA Stop: 07/10/17 03:29 Last Admin: 07/10/17 03:36 Dose: 2 mg IVP Administration Document 07/10/17 03:36 RM (Rec: 07/10/17 03:36 RM [id number]) Charges for Administration # of IVP Administrations 1 Morphine Sulfate (Morphine) 4 mg IVP Q3H PRN PRN Reason: Pain, severe (8-10) Last Admin: 07/10/17 08:41 Dose: 4 mg IVP Administration Document 07/10/17 08:41 BIR (Rec: 07/10/17 08:42 BIR [id number]) Charges for Administration # of IVP Administrations 2 Morphine Sulfate (Morphine) 4 mg IVP Q3H PRN PRN Reason: Pain, severe (8-10) Last Admin: 07/12/17 22:12 Dose: 4 mg [facility] Pain Assessment Document 07/12/17 22:12 MV (Rec: 07/12/17 22:13 MV [place] [id number]) Pain Reassessment Is this a pain reassessment? No Sleep Is patient sleeping during reassessment? No Presence of Pain Presence of Pain Yes Pain Scale Used Pain Scale Used Numeric Location Upper or Lower Lower Pain Location Body Site Back Description Intensity of Pain at present 8 Pain Behavior Moaning Irritability Facial Grimacing Aggravating Factors Changing Position Alleviating Factors/Management Medication Techniques Alleviating Factors Medication IVP Administration Document 07/12/17 22:12 MV (Rec: 07/12/17 22:13 MV [place] [id number]) Charges for Administration # of IVP Administrations 1 Re-Assess: [facility] Pain Assessment Document 07/12/17 23:12 MV (Rec: 07/13/17 00:30 MV [place] [id number]) Pain Reassessment Is this a pain reassessment? Yes Sleep Is patient sleeping during reassessment? Yes Non-Formulary Medication (Aluminum Hydroxide/Magnesium H [Maalox 30 Ml]) 30 ml PO Q4 NINA Potassium Chloride (K-Dur 20 Meq Er Tab) 40 meq PO Q6H NINA Stop: 07/08/17 21:01 Last Admin: 07/08/17 21:33 Dose: 40 meq Potassium Chloride (Potassium Chloride Oral Soln) 40 meq PO Q2H NINA Stop: 07/09/17 11:46 Last Admin: 07/09/17 10:50 Dose: 40 meq Potassium Chloride (Potassium Chloride Oral Soln) 40 meq PO ONCE ONE Stop: 07/12/17 10:50 Last Admin: 07/12/17 11:44 Dose: 40 meq Potassium Chloride (K-Dur 20 Meq Er Tab) 40 meq PO STAT STA Stop: 07/13/17 12:47 Last Admin: 07/13/17 13:03 Dose: 40 meq Potassium Chloride (K-Dur 20 Meq Er Tab) 20 meq PO ONCE ONE Stop: 07/13/17 16:01 Last Admin: 07/13/17 16:16 Dose: 20 meq Sodium Phosphate (Fleet Enema) 135 ml RC ONCE ONE Stop: 07/10/17 08:41 Last Admin: 07/10/17 09:17 Dose: 135 ml Spironolactone (Aldactone) 12.5 mg PO BID NINA Last Admin: 07/14/17 11:38 Dose: 12.5 mg Sucralfate (Carafate Oral Susp) 1 gm PO STAT STA Stop: 07/13/17 20:06 Last Admin: 07/14/17 02:01 Dose: 1 gm Warfarin Sodium (Coumadin) 5 mg PO 1800 NINA PRN Reason: Protocol Warfarin Sodium (Coumadin) 7.5 mg PO 1800 NINA PRN Reason: Protocol Last Admin: 07/13/17 17:21 Dose: 7.5 mg [facility] INR Result Document 07/13/17 17:21 CHRISTOPHER (Rec: 07/13/17 17:21 SABAS [id number]) INR INR 1.1 - Scribe Statement The provider has reviewed the documentation as recorded by the Manuel Garrido. All medical record entries made by the Manuel were at my direction and personally dictated by me. I have reviewed the chart and agree that the record accurately reflects my personal performance of the history, physical exam, medical decision making, and the department course for this patient. I have also personally directed, reviewed, and agree with the discharge instructions and disposition. Disposition/Present on Arrival - Present on Arrival Any Indicators Present on Arrival: No History of DVT/PE: No History of Uncontrolled Diabetes: No Urinary Catheter: No History of Decub. Ulcer: No History Surgical Site Infection Following: None - Disposition Have Diagnosis and Disposition been Completed?: Yes Diagnosis: Anemia, Hypokalemia, Fever, Ascites, Peritonitis, Pneumonia, Edema Disposition: HOSPITALIZED Disposition Time: 19:45 Patient Plan: Admission, Telemetry Patient Problems: Current Active Problems Problem Status Onset Anemia Acute Ascites Acute Edema Acute Fever Acute Hypokalemia Acute Peritonitis Acute Pneumonia Acute Condition: SERIOUS
[2017-07-08] MEDS ORDERED: Morphine 2 mg/ml ISec IVP STA (17:24)
[2017-07-08] MEDS ORDERED: Morphine 2 mg/2 mL syringe IVP STA (17:27)
[2017-07-08] MEDS ORDERED: HYDROmorphone 1 mg/ml ISec IVP STA (17:44)
[2017-07-08 18:07] LABS: GRAN # 2.34 (1.4-6.5); GRAN % 79.3 % (50.0-68.0); HEMOGLOBIN 10.3 g/dL (14.0-18.0); LYMPH # 0.5 (1.2-3.4); MEAN CELL VOLUME 87.6 fl (80.0-105.0); MEAN CORPUSCULAR HEMOGLOBIN 30.3 pg (25.0-35.0); MEAN CORPUSCULAR HGB CONC 34.6 g/dl (31.0-37.0); MEAN PLATELET VOLUME 8.9 fl (7.0-11.0); MONO # 0.1 (0.1-0.6); MONO % 2.7 % (1.0-6.0); RBC 3.4 10^6/uL (3.5-6.1); RED CELL DISTRIBUTION WIDTH 15.4 % (11.5-14.5); URINE BILIRUBIN NEGATIVE (NEGATIVE); URINE BLOOD NEGATIVE (NEGATIVE); URINE GLUCOSE (UA) NEGATIVE (NEGATIVE); URINE LEUKOCYTE ESTERASE NEGATIVE Leu/uL (NEGATIVE); URINE PROTEIN NEGATIVE mg/dL (<30 mg/dL); URINE UROBILINOGEN 0.2 E.U./dL (<1 E.U./dL); VENOUS BLOOD GAS BASE EXCESS 5.4 mmol/L (0.0-2.0); VENOUS BLOOD GAS PO2 53 mm/Hg (30-55); VENOUS BLOOD PH 7.49 (7.32-7.43)
[2017-07-08 18:10] LABS: URINE APPEARANCE CLEAR (CLEAR); URINE COLOR YELLOW (YELLOW)
[2017-07-08 18:25] LABS: INR 1.27 (0.93-1.08); PROTHROMBIN TIME 14.5 SECONDS (9.4-12.5)
[2017-07-08 18:28] LABS: B-TYPE NATRIURETIC PEPTIDE 655 pg/mL (0-450); TROPONIN I 0.02 ng/mL
[2017-07-08 18:31] LABS: ALB/GLOB RATIO 0.9 (1.1-1.8); ALBUMIN 2.7 g/dL (3.0-4.8); ALT/SGPT 51 U/L (7-56); AST/SGOT 39 U/L (17-59); BLOOD UREA NITROGEN 14 mg/dL (7-21); CALCIUM 7.9 mg/dL (8.4-10.5); GFR AFRICAN-AMERICAN > 60; GFR NON-AFRICAN AMERICAN > 60
--- NOTE | 2017-07-08 18:45 | RAD ---
HISTORY: Works and is is shortness of breath. COMPARISON: 05/14/2017. FINDINGS: LUNGS: New, extensive right lower lobe infiltrate. PLEURA: Associated right pleural effusion indistinguishable from the right lower lobe infiltrate. CARDIOVASCULAR: Venous access catheter in satisfactory position. OSSEOUS STRUCTURES: No significant abnormalities. VISUALIZED UPPER ABDOMEN: Normal. OTHER FINDINGS: None. IMPRESSION: Right lower lobe infiltrate/right pleural effusion new findings compared to the prior chest x-ray.
--- NOTE | 2017-07-08 18:58 | CT ---
PROCEDURE: CT Abdomen and Pelvis without intravenous contrast HISTORY: Abdominal pain, obstruction suspected Relevant medical history: Cholangiocarcinoma. COMPARISON: 06/15/2017 CT abdomen pelvis 06/24/2017 PET-CT scan abort TECHNIQUE: Unenhanced study. Neither oral nor intravenous contrast administered. Radiation dose: Total exam DLP = 568.40 mGy-cm. This CT exam was performed using one or more of the following dose reduction techniques: Automated exposure control, adjustment of the mA and/or kV according to patient size, and/or use of iterative reconstruction technique. FINDINGS: LOWER THORAX: Right pleural effusion is increased in size compared to the prior CT scan. Increase in compressive atelectasis right lower lobe. LIVER: Percutaneous transhepatic biliary stent catheter is in stable position. 2.2 cm mass right hepatic lobe likely metastatic disease. Mass in the posterior segment right hepatic lobe 3.8 x 4.4 cm and additional metastatic focus suspected. All GALLBLADDER AND BILE DUCTS: No evidence of bile duct dilatation, the catheter appears be in satisfactory position. PANCREAS: Unremarkable. No gross lesion or ductal dilatation. SPLEEN: Unremarkable. ADRENALS: Unremarkable. No mass. KIDNEYS AND URETERS: Unremarkable. No hydronephrosis. No solid mass. Stable simple cyst left kidney. VASCULATURE: Unremarkable. No aortic aneurysm. BOWEL: No evidence of mechanical bowel obstruction. Constipation/ fecal impaction identified. APPENDIX: Unremarkable. Normal appendix. PERITONEUM: Substantial increase in what is not large volume intra-abdominal and pelvic ascites. Stable anasarca. LYMPH NODES: Unremarkable. No enlarged lymph nodes. BLADDER: Unremarkable. REPRODUCTIVE: Unremarkable. BONES: No acute fracture. OTHER FINDINGS: None. IMPRESSION: Marked increase in intra-abdominal and pelvic ascites. Increase in right pleural effusion and compressive atelectasis. Stable tumor burden in the liver.
[2017-07-08] MEDS ORDERED: cefTRIAXone 1 gm 1 GM/100 ML BAG IVPB STA (19:55)
[2017-07-08] MEDS ORDERED: Azithromycin 500MG/NS 250ml 500 MG/250 ML BAG IVPB STA (19:55)
--- NOTE | 2017-07-08 20:49 | CP.PCM.HP ---
Addendum entered and electronically signed by Maddy Dailey DO 07/09/17 05:27 : Patient on BIPAP now; D-dimer elevated, CT PE protocol showed no pulmonary embolus. Patient NPO except for medicatons with tentative plan for paracentesis and thoracentesis. Surgery consulted, recommendations appreciated. Patient on aggressive bowel regiment for constipation. F/U procalcitonin, cultures, and order appropriate labs for any body fluid removed from patient. Original Note: <Maddy Dailey - Last Filed: 07/08/17 22:07> History of Present Illness - History of Present Illness History of Present Illness: 72 year old [place] male with a past medical history significant for cholangiocarcinoma with liver metastasis, status-post drainage of a subcapsular hematoma, status post conversion to a 14-gauge internal-external drain into the duodenum on sun'aq therapy with gemcitabine, hypertension, CAD with stents who presents to the ED for 8 days of constipation, worsening abdominal distension, and no PO intake for one day. The patient is Spanish and Occitan speaking. The son was contacted in order to corroborate the patient's history but was unable to be reached. The son, however, was present for the evaluation performed by the ED physician. With the use of Spanish translation service the patient complained of "worsening abdominal pain that extends to his bilateral flanks and constipation for eight days." He denies nausea, vomiting, fever, chills, chest pain, dyspnea, diarrhea, or unilateral weakness or numbness. PMH: cholangiocarcinoma, hypertension, CAD, possible DM Past Surgical History: biliary stenting,prostate surgery, thyroidectomy, cardiac stents Family History: Unknown Allergies: NKA Social History: Lives with son, former smoker, denies alcohol or llicit drug use Present on Admission - Present on Admission Any Indicators Present on Admission: No Review of Systems - Review of Systems All systems: reviewed and no additional remarkable complaints except (as per HPI ) Past Patient History - Infectious Disease Hx of Infectious Diseases: None - Past Social History Smoking Status: Never Smoked - CARDIAC Hx Cardiac Disorders: Yes Hx Hypertension: Yes - PULMONARY Hx Respiratory Disorders: No - NEUROLOGICAL Hx Neurological Disorder: No - HEENT Hx HEENT Problems: Yes - RENAL Hx Chronic Kidney Disease: No - ENDOCRINE/METABOLIC Hx Diabetes Mellitus Type 2: Yes - HEMATOLOGICAL/ONCOLOGICAL Hx Cancer: Yes Hx Chemotherapy: Yes - INTEGUMENTARY Hx Dermatological Problems: No - MUSCULOSKELETAL/RHEUMATOLOGICAL Hx Musculoskeletal Disorders: Yes Hx Back Pain: Yes Hx Falls: No - GASTROINTESTINAL Other/Comment: Biliary Drain placed one month ago 05/2017Liver cancer- Chemotherapy - GENITOURINARY/GYNECOLOGICAL Hx Prostate Problems: Yes - PSYCHIATRIC Hx Psychophysiologic Disorder: No Hx Substance Use: No - SURGICAL HISTORY Hx Cardiac Catheterization: Yes Hx Coronary Stent: Yes - ANESTHESIA Hx Anesthesia: Yes Hx Anesthesia Reactions: Yes Hx Malignant Hyperthermia: No Meds Allergies/Adverse Reactions: Allergies Allergy/AdvReac Type Severity Reaction Status Date / Time No Known Allergies Allergy Verified 06/21/17 00:56 Physical Exam - Constitutional Appears: Non-toxic - Head Exam Head Exam: ATRAUMATIC, NORMOCEPHALIC - Eye Exam Eye Exam: EOMI, Normal appearance - ENT Exam ENT Exam: Mucous Membranes Dry - Neck Exam Neck exam: Positive for: Normal Inspection - Respiratory Exam Respiratory Exam: absent: Accessory Muscle Use Additional comments: right lung sounds nearly absent - Cardiovascular Exam Cardiovascular Exam: RRR, +S1, +S2 - GI/Abdominal Exam GI & Abdominal Exam: Distended, Hypoactive Bowel Sounds, Tenderness (diffusely) Additional comments: hepatomegaly, biliary drain site clean, dry, and intact - Extremities Exam Extremities exam: Positive for: pedal edema Additional comments: 3/4 pitting edema - Neurological Exam Neurological exam: Alert, Oriented x3 - Psychiatric Exam Psychiatric exam: Normal Affect, Normal Mood - Skin Skin Exam: Dry, Intact, Normal Color, Warm Results - Vital Signs Recent Vital Signs: Last Vital Signs Temp 100.5 F H 07/08/17 18:04 Pulse 95 H 07/08/17 18:04 Resp 18 07/08/17 18:04 BP 130/63 07/08/17 18:04 Pulse Ox 99 07/08/17 18:04 - Labs Result Diagrams: 07/08/17 17:35 07/08/17 17:35 Assessment & Plan - Assessment and Plan (Free Text) Assessment: 72 year old [place] male with a past medical history significant for cholangiocarcinoma with liver metastasis, status-post drainage of a subcapsular hematoma, status post conversion to a 14-gauge internal-external drain into the duodenum on sun'aq therapy with gemcitabine, hypertension, CAD who presents with worsening abdominal pain, distention, constipation and was found to have an increase in right pleural effusion and compressive atelectasis, marked increase in intra-abdominal and pelvic ascites, and stable tumor burden. Plan: 1) Ascites, malignant - Duarte Guerra, IR, consulted - Dr. Headley consulted - Lasix 20-40 mg IVP BID 2) Constipation and abdominal pain - Trial of laxative enema - One dose of lactulose 30 mg PO - Miralax 17 grams BID - Colace 100 mg BID - Dilaudid 0.5 mg IVP q4h PRN for severe pain 3) Possible SBP and/or right sided pneumonia - Treat empirically with Rocephin and Azithromycin 4) Hypokalemia - Replete with PO K - Magnesium ordered - recheck electrolytes in Am 5) CAD - Aspirin 81 mg PO daily 6) Hypothyroidism - Levothyroxine 100 mcg daily 7) DVT/GI prophylaxis - Lovenox 40 mg SC - Protonix 20 mg PO daily Case reviewed and discussed with attending physician, Dr. Zuniga - Date & Time Date: 07/08/17 Time: 22:19 <Sulma Zuniga - Last Filed: 07/09/17 06:22> Results - Vital Signs Recent Vital Signs: Last Vital Signs Temp 97.6 F 07/09/17 01:20 Pulse 107 H 07/09/17 03:57 Resp 20 07/09/17 01:20 BP 113/79 07/09/17 03:00 Pulse Ox 99 07/09/17 01:20 - Labs Result Diagrams: 07/09/17 02:15 07/09/17 01:10 Labs: Laboratory Results - last 24 hr 07/09/17 07/09/17 07/09/17 01:10 01:10 02:15 Hgb 11.3 L Hct 32.9 L D-Dimer, Quantitative pCO2 pO2 HCO3 ABG pH ABG Total CO2 ABG O2 Saturation ABG Base Excess ABG Potassium Glucose Lactate FiO2 Sodium 134 Potassium 3.7 Chloride 95 L Carbon Dioxide 30 Anion Gap 13 BUN 17 Creatinine 0.9 Est GFR ( Amer) > 60 Est GFR (Non-Af Amer) > 60 Random Glucose 154 H Calcium 8.1 L Phosphorus 3.4 Troponin I 0.02 Amylase 73 Lipase 80 TSH 3rd Generation Arterial Blood Potassium 07/09/17 07/09/17 07/09/17 02:15 02:15 02:40 Hgb Hct D-Dimer, Quantitative 4615 H pCO2 31 L pO2 77.0 L HCO3 27.1 ABG pH 7.55 H ABG Total CO2 28.1 H ABG O2 Saturation 98.4 H ABG Base Excess 5.2 H ABG Potassium 2.9 L Glucose 168 H Lactate 1.5 FiO2 28.0 Sodium 133.0 Potassium Chloride 95.0 L Carbon Dioxide Anion Gap BUN Creatinine Est GFR ( Amer) Est GFR (Non-Af Amer) Random Glucose Calcium Phosphorus Troponin I Amylase Lipase TSH 3rd Generation 14.60 H Arterial Blood Potassium 2.9 L Attending/Attestation - Attestation I have personally seen and examined this patient.: Yes I have fully participated in the care of the patient.: Yes I have reviewed all pertinent clinical information: Yes Notes (Text): 07/09/17 06:21 Patient was seen when he was in bed # 11 in the ER . Agree with history , physical examination ,assessment and plan.
[2017-07-08] MEDS ORDERED: Potassium Chloride 20 mEq ER Tab PO STA (20:51)
[2017-07-08] MEDS ORDERED: HYDROmorphone 0.5 mg/0.5 ml ISec IVP PRN (20:59)
[2017-07-08] MEDS ORDERED: Potassium Chloride 20 mEq ER Tab PO SCH (21:00)
[2017-07-08] MEDS ORDERED: Lactulose 10 gm/15 ml (Rectal Use) PR ONE (23:59)
[2017-07-09] MEDS ORDERED: Albumin Human 25% (12.5 gm/50 ml) IV ONE (01:31)
[2017-07-09 01:49] LABS: BLOOD UREA NITROGEN 17 mg/dL (7-21); CALCIUM 8.1 mg/dL (8.4-10.5); GFR AFRICAN-AMERICAN > 60; GFR NON-AFRICAN AMERICAN > 60
[2017-07-09 01:54] LABS: TROPONIN I 0.02 ng/mL
[2017-07-09] MEDS ORDERED: Digoxin 500 mcg/2ml (0.5 mg/2ml) Inj IVP ONE (02:11)
[2017-07-09 02:32] VITALS: PULSE 143
[2017-07-09 02:32] LABS: HEMOGLOBIN 11.3 g/dL (14.0-18.0)
[2017-07-09 02:51] LABS: ARTERIAL BLOOD GAS HCO3 27.1 mmol/L (21-28); ARTERIAL BLOOD GAS O2 SAT 98.4 % (95-98); ARTERIAL BLOOD GAS PCO2 31 mm/Hg (35-45); ARTERIAL BLOOD GAS PH 7.55 (7.35-7.45); ARTERIAL BLOOD GAS TCO2 28.1 mmol.L (22-28)
[2017-07-09] MEDS ORDERED: Iodixanol 320 MG/ML 100 ML BOTTLE IV ONE (03:20)
[2017-07-09] MEDS ORDERED: Mineral Oil Enema 135 ml RC ONE (03:20)
--- NOTE | 2017-07-09 03:36 | CP.PCM.CON ---
History of Present Illness - History of Present Illness History of Present Illness: General surgery consult for Dr. Bright Consulted for abdominal pain and distention Patient HPI conducted via translation service in Persian Patient is a 72M with PMH of cholangiocarcinoma s/p percutaneous biliary stent by IR, with metastasis to the liver currently undergoing chemotherapy per Dr. Headley, pleural effusion, HTN, DM2, CAD s/p stenting who presented to the ED for worsening abdominal pain, distention, and constipation. Patient was found to have a low grade fever of 100.5 in the ER and developed tachycardia and mild hypotension in the ER, though his vitals were wnl at presentation. Patient states that his pain on the left side of this abdomen. Patient states he hasn't had a bowel movement for 8 days with worsening abdominal distention, but is passing gas, denies any melena or hematochezia, nausea, vomiting, fever, or chills, shortness of breath, or chest pain. Patient is on chronic narcotics at home for pain as well as colace and miralax for stool softeners. PMH: as above, hypothryoidism s/p thryoidectomy PSH: prostatectomy, thryoidectomy, percutaneous biliary stent, coronary artery stenting ALL: NKDA Social: former smoker for 32 years--quit 15 years ago, ETOH/drugs: denies Review of Systems - Review of Systems All systems: reviewed and no additional remarkable complaints except (as per HPI ) Past Patient History - Infectious Disease Hx of Infectious Diseases: None - Past Medical History & Family History Past Medical History?: Yes Past Family History: Reviewed and not pertinent - Past Social History Smoking Status: Former Smoker (quit in 2002, smoked for) Alcohol: None Drugs: Denies - CARDIAC Hx Cardiac Disorders: Yes Hx Hypertension: Yes - PULMONARY Hx Respiratory Disorders: No - NEUROLOGICAL Hx Neurological Disorder: No - HEENT Hx HEENT Problems: Yes - RENAL Hx Chronic Kidney Disease: No - ENDOCRINE/METABOLIC Hx Diabetes Mellitus Type 2: Yes - HEMATOLOGICAL/ONCOLOGICAL Hx Cancer: Yes Hx Chemotherapy: Yes - INTEGUMENTARY Hx Dermatological Problems: No - MUSCULOSKELETAL/RHEUMATOLOGICAL Hx Musculoskeletal Disorders: Yes Hx Back Pain: Yes Hx Falls: No - GASTROINTESTINAL Other/Comment: Biliary Drain placed one month ago 05/2017Liver cancer- Chemotherapy - GENITOURINARY/GYNECOLOGICAL Hx Prostate Problems: Yes - PSYCHIATRIC Hx Psychophysiologic Disorder: No Hx Substance Use: No - SURGICAL HISTORY Hx Cardiac Catheterization: Yes Hx Coronary Stent: Yes Hx Thyroidectomy: Yes Other/Comment: Biliary Drain placed 05/2017 - ANESTHESIA Hx Anesthesia: Yes Hx Anesthesia Reactions: Yes Hx Malignant Hyperthermia: No Meds Allergies/Adverse Reactions: Allergies Allergy/AdvReac Type Severity Reaction Status Date / Time No Known Allergies Allergy Verified 06/21/17 00:56 - Medications Medications: Current Medications Aspirin (Aspirin Chewable) 81 mg PO DAILY [facility] Docusate Sodium (Colace) 100 mg PO BID PRN PRN Reason: Constipation Enoxaparin Sodium (Lovenox) 40 mg SC DAILY [facility] PRN Reason: Protocol Furosemide (Lasix) 20 mg IVP Q12 [facility] Hydromorphone HCl (Dilaudid) 0.5 mg IVP Q4H PRN PRN Reason: Pain, severe (8-10) Ceftriaxone Sodium (Rocephin 1 Gram Ivpb) 1 gm in 100 mls @ 100 mls/hr IVPB DAILY [facility] PRN Reason: Protocol Azithromycin (Zithromax 500mg In Ns) 500 mg in 250 mls @ 167 mls/hr IVPB DAILY [facility] PRN Reason: Protocol Insulin Human Regular (Humulin R Low) 0 units SC ACHS [facility] PRN Reason: Protocol Levothyroxine Sodium (Synthroid) 100 mcg PO DAILY [facility] Mineral Oil (Fleet Mineral Oil Enema) 135 ml RC ONCE ONE Stop: 07/09/17 03:21 Pantoprazole Sodium (Protonix Ec Tab) 20 mg PO DAILY [facility] Polyethylene Glycol (Miralax) 17 gm PO BID [facility] Senna/Docusate Sodium (Senokot S 50 Mg-8.6 Mg) 1 tab PO BID [facility] Physical Exam - Constitutional Appears: Well, Non-toxic, No Acute Distress - Head Exam Head Exam: ATRAUMATIC, NORMOCEPHALIC - Eye Exam Eye Exam: Normal appearance. absent: Conjunctival injection, Scleral icterus - ENT Exam ENT Exam: Mucous Membranes Moist, Normal Oropharynx - Respiratory Exam Respiratory Exam: absent: Accessory Muscle Use, Wheezes, Respiratory Distress Additional comments: mild tachypnea when speaking - Cardiovascular Exam Cardiovascular Exam: Tachycardia, REGULAR RHYTHM - GI/Abdominal Exam GI & Abdominal Exam: Distended, Soft, Tenderness (LUQ, epigastrium). absent: Mass, Rebound - Rectal Exam Rectal Exam: absent: Bloody Stool, Hemorrhoids Additional comments: normal external exam, normal sphincter tone, soft brown stool without gross blood or melena in the rectal vault, unable to evacuate much. - Extremities Exam Extremities exam: Negative for: calf tenderness, pedal edema - Neurological Exam Neurological exam: Alert, Oriented x3 - Psychiatric Exam Psychiatric exam: Normal Affect, Normal Mood - Skin Skin Exam: Dry, Intact, Normal Color, Warm Results - Vital Signs Recent Vital Signs: Last Vital Signs Temp 97.6 F 07/09/17 01:20 Pulse 107 H 07/09/17 01:56 Resp 20 07/09/17 01:20 BP 103/70 07/09/17 01:56 Pulse Ox 99 07/09/17 01:20 - Labs Result Diagrams: 07/09/17 02:15 07/09/17 01:10 Labs: Laboratory Results - last 24 hr 07/09/17 07/09/17 07/09/17 01:10 01:10 02:15 Hgb 11.3 L Hct 32.9 L D-Dimer, Quantitative pCO2 pO2 HCO3 ABG pH ABG Total CO2 ABG O2 Saturation ABG Base Excess ABG Potassium Glucose Lactate FiO2 Sodium 134 Potassium 3.7 Chloride 95 L Carbon Dioxide 30 Anion Gap 13 BUN 17 Creatinine 0.9 Est GFR ( Amer) > 60 Est GFR (Non-Af Amer) > 60 Random Glucose 154 H Calcium 8.1 L Phosphorus 3.4 Troponin I 0.02 Amylase 73 Lipase 80 TSH 3rd Generation Arterial Blood Potassium 07/09/17 07/09/17 07/09/17 02:15 02:15 02:40 Hgb Hct D-Dimer, Quantitative 4615 H pCO2 31 L pO2 77.0 L HCO3 27.1 ABG pH 7.55 H ABG Total CO2 28.1 H ABG O2 Saturation 98.4 H ABG Base Excess 5.2 H ABG Potassium 2.9 L Glucose 168 H Lactate 1.5 FiO2 28.0 Sodium 133.0 Potassium Chloride 95.0 L Carbon Dioxide Anion Gap BUN Creatinine Est GFR ( Amer) Est GFR (Non-Af Amer) Random Glucose Calcium Phosphorus Troponin I Amylase Lipase TSH 3rd Generation 14.60 H Arterial Blood Potassium 2.9 L - Imaging and Cardiology CT scan - abdomen Status: Image reviewed by me Assessment & Plan - Assessment and Plan (Free Text) Assessment: 72M with cholangiocarcinoma with spread to the liver, worsening ascites, worsening right pleural effusion, constipation Plan: No surgical intervention indicated at this time--patient's symptoms likely due to constipation and increased ascites. Patient's tachycardia and hypotension likely not due to an intra-abdominal process. Not likely spontaneous bacterial peritonitis at this time but further workup recommended. Recommend IR consult for paracentesis with fluid analysis/culture for Spontaneous bacterial peritonitis and possible thoracentesis for right pleural effusion Keep patient NPO with meds Aggressive bowel regimen with PO miralax and sennakot, fleet and tap water enemas scheduled F/U cultures Trend CBC/CMP, monitoring electrolytes closely Strict intake and output--especially urine IVF--patient has mildly elevated BUN and tachycardia Encourage ambulation with PT when stable incentive spirometer DVT ppx F/U oncology recommendations Will continue to monitor closely Will discuss with Dr. Bright, further recs per him Santa Fay, PGY2
[2017-07-09] MEDS: Docusate-Senna 50 mg-8.6 mg Tab PO SCH ×3 (04:16→17:13)
[2017-07-09] MEDS ORDERED: Lactated Ringer's 1,000 ML IV SCH (04:30)
[2017-07-09] MEDS ORDERED: Dextrose 5%/Lactated Ringer's 1,000 ML IV SCH (04:30)
--- NOTE | 2017-07-09 04:35 | CT ---
EXAM: CT Angiography Chest With Intravenous Contrast CLINICAL HISTORY: 72 years old, male; Abnormal findings; Abnormal diagnostic tests; Elevated d-dimer; Additional info: SOB, elevated d-dimer TECHNIQUE: Axial computed tomographic angiography images of the chest with intravenous contrast using pulmonary embolism protocol. All CT scans at this facility use one or more dose reduction techniques, viz.: automated exposure control; ma/kV adjustment per patient size (including targeted exams where dose is matched to indication; i.e. head); or iterative reconstruction technique. 889 images are submitted. Axial images are submitted in lung and mediastinal windows. MIP reconstructed images were created and reviewed. Coronal and sagittal reformatted images were created and reviewed. Axial reformatted images were created and reviewed. CONTRAST: 96 mL of VISI 320 administered intravenously. COMPARISON: DX - CHEST PORTABLE 2017-07-08 18:40 FINDINGS: Artifacts: Limited due to motion and misregistration artifacts.Limited due to pulsation artifact. Pulmonary arteries: Unremarkable. No pulmonary embolism. Aorta: The aorta demonstrates calcified plaque and is mildly ectatic but normal in caliber. No thoracic aortic aneurysm. Lungs: Right lower lobe right middle lobe , left basilar and lingular nonspecific infiltrates and consolidation are present, consistent with atelectasis or pneumonia. Right lung base is excluded from the examination. The visualized portions of major airways are patent. Pleural space: Large right and trace left pleural effusion. No pneumothorax. Heart: Cardiomegaly. Small pericardial effusion. Left ventricular hypertrophy. Bones/joints: No acute fracture. No dislocation. Soft tissues: Unremarkable. Lymph nodes: Unremarkable. No enlarged lymph nodes. Adrenals: The adrenal glands and incompletely seen. Stomach and bowel: Large amount of stool in the colon in the area of splenic flexure of the colonic wall thickening. Correlation with patient's clinical history of constipation versus stool related colitis is recommended. Intraperitoneal space: Intra-abdominal free fluid. Perigastric fluid and infiltration. Tubes, lines and devices: There is a right chest wall MediPort with tip located in the right atrium. Artifact from a monitoring device lying to the right of the patient. There is a pigtail catheter drain centrally within the liver.There is a focal liver hypodensity that cannot be further characterized on the current examination. IMPRESSION: 1. Large right and trace left pleural effusion. 2. Right lower lobe right middle lobe , left basilar and lingular nonspecific infiltrates and consolidation are present, consistent with atelectasis or pneumonia. 3. No CT evidence for pulmonary embolus. The segmental and subsegmental branch pulmonary arteries are degraded by motion artifact. Correlation with internal medicine pulmonary history evaluation and further workup or followup as recommended by patient's clinical data.
[2017-07-09 07:07] LABS: EOS % 0.2 % (1.5-5.0); GRAN # 3.97 (1.4-6.5); GRAN % 84.3 % (50.0-68.0); HEMOGLOBIN 9.9 g/dL (14.0-18.0); LYMPH # 0.6 (1.2-3.4); LYMPH % 12.5 % (22.0-35.0); MEAN CELL VOLUME 87.7 fl (80.0-105.0); MEAN CORPUSCULAR HEMOGLOBIN 29.6 pg (25.0-35.0); MEAN CORPUSCULAR HGB CONC 33.8 g/dl (31.0-37.0); MEAN PLATELET VOLUME 9.3 fl (7.0-11.0); MONO # 0.1 (0.1-0.6); RBC 3.34 10^6/uL (3.5-6.1); RED CELL DISTRIBUTION WIDTH 15.4 % (11.5-14.5); WHITE BLOOD COUNT 4.7 10^3/ul (4.5-11.0)
[2017-07-09 07:20] LABS: INR 1.3 (0.93-1.08)
[2017-07-09 07:25] LABS: ALB/GLOB RATIO 0.9 (1.1-1.8); ALBUMIN 2.4 g/dL (3.0-4.8); ALT/SGPT 41 U/L (7-56); AST/SGOT 30 U/L (17-59); BLOOD UREA NITROGEN 18 mg/dL (7-21); CALCIUM 7.9 mg/dL (8.4-10.5); GFR AFRICAN-AMERICAN > 60; GFR NON-AFRICAN AMERICAN > 60
--- NOTE | 2017-07-09 07:25 | CP.PCM.PN ---
Objective - Vital Signs/Intake and Output Vital Signs (last 24 hours): Temp Pulse Resp BP Pulse Ox 97.6 F 111 H 20 113/79 99 07/09/17 01:20 07/09/17 06:00 07/09/17 01:20 07/09/17 03:00 07/09/17 01:20 Intake and Output: 07/09/17 07/09/17 06:59 18:59 Intake Total 120 Output Total 600 Balance -480 - Medications Medications: Current Medications Aspirin (Aspirin Chewable) 81 mg PO DAILY [facility] Docusate Sodium (Colace) 100 mg PO BID PRN PRN Reason: Constipation Enoxaparin Sodium (Lovenox) 40 mg SC DAILY [facility] PRN Reason: Protocol Furosemide (Lasix) 20 mg IVP Q12 [facility] Hydromorphone HCl (Dilaudid) 0.5 mg IVP Q4H PRN PRN Reason: Pain, severe (8-10) Ceftriaxone Sodium (Rocephin 1 Gram Ivpb) 1 gm in 100 mls @ 100 mls/hr IVPB DAILY [facility] PRN Reason: Protocol Azithromycin (Zithromax 500mg In Ns) 500 mg in 250 mls @ 167 mls/hr IVPB DAILY [facility] PRN Reason: Protocol Lactated Ringer's (Lactated Ringer's) 1,000 mls @ 50 mls/hr IV .Q20H [facility] Insulin Human Regular (Humulin R Low) 0 units SC ACHS [facility] PRN Reason: Protocol Levothyroxine Sodium (Synthroid) 100 mcg PO DAILY [facility] Pantoprazole Sodium (Protonix Ec Tab) 20 mg PO DAILY [facility] Polyethylene Glycol (Miralax) 17 gm PO BID [facility] Senna/Docusate Sodium (Senokot S 50 Mg-8.6 Mg) 1 tab PO BID [facility] Last Admin: 07/09/17 04:16 Dose: Not Given - Labs Labs: 07/09/17 06:48 07/09/17 06:48 PT 15.0 SECONDS (9.4-12.5) H 07/09/17 06:48 INR 1.30 (0.93-1.08) H 07/09/17 06:48 APTT 27.0 Seconds (25.1-36.5) 07/08/17 17:35
--- NOTE | 2017-07-09 08:36 | CP.PCM.CON ---
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 Headley on Gemcitabin, HTN, hypothryoidism s/p thryoidectomy, DM2, CAD s/p stenting who presented to the ED for worsening abdominal pain, distention, and constipation. Patient states that his pain on the left side of this abdomen. Patient states he hasn't had a bowel movement for 8 days with worsening abdominal distention, but is passing gas, denies any melena or hematochezia, nausea, vomiting, fever, or chills, shortness of breath, or chest pain. Patient does take pain medication at home for pain and is on colace and miralax as a bowel regimen. CT imaging showing increased ascites and abdominal distention, and right pleural effusion with underlying PNA. No prior colonoscopy or EGD. ROS: A 12pt ROS was negative except as above. PMH: As stated above PSH: prostatectomy, thryoidectomy, percutaneous biliary stent, coronary artery stenting Social: former smoker for 32 years--quit 15 years ago, ETOH/drugs: denies FHx: denies liver or colon cancer Past Patient History - Infectious Disease Hx of Infectious Diseases: None - Past Medical History & Family History Past Medical History?: Yes Past Family History: Reviewed and not pertinent - Past Social History Smoking Status: Former Smoker (quit in 2002, smoked for) Alcohol: None Drugs: Denies - CARDIAC Hx Cardiac Disorders: Yes Hx Hypertension: Yes - PULMONARY Hx Respiratory Disorders: No - NEUROLOGICAL Hx Neurological Disorder: No - HEENT Hx HEENT Problems: Yes - RENAL Hx Chronic Kidney Disease: No - ENDOCRINE/METABOLIC Hx Diabetes Mellitus Type 2: Yes - HEMATOLOGICAL/ONCOLOGICAL Hx Cancer: Yes Hx Chemotherapy: Yes - INTEGUMENTARY Hx Dermatological Problems: No - MUSCULOSKELETAL/RHEUMATOLOGICAL Hx Musculoskeletal Disorders: Yes Hx Back Pain: Yes Hx Falls: No - GASTROINTESTINAL Other/Comment: Biliary Drain placed one month ago 05/2017Liver cancer- Chemotherapy - GENITOURINARY/GYNECOLOGICAL Hx Prostate Problems: Yes - PSYCHIATRIC Hx Psychophysiologic Disorder: No Hx Substance Use: No - SURGICAL HISTORY Hx Cardiac Catheterization: Yes Hx Coronary Stent: Yes Hx Thyroidectomy: Yes Other/Comment: Biliary Drain placed 05/2017 - ANESTHESIA Hx Anesthesia: Yes Hx Anesthesia Reactions: Yes Hx Malignant Hyperthermia: No Meds Allergies/Adverse Reactions: Allergies Allergy/AdvReac Type Severity Reaction Status Date / Time No Known Allergies Allergy Verified 06/21/17 00:56 - Medications Medications: Current Medications Aspirin (Aspirin Chewable) 81 mg PO DAILY NINA Docusate Sodium (Colace) 100 mg PO BID PRN PRN Reason: Constipation Enoxaparin Sodium (Lovenox) 40 mg SC DAILY [facility]INA PRN Reason: Protocol Furosemide (Lasix) 20 mg IVP Q12 NINA Hydromorphone HCl (Dilaudid) 0.5 mg IVP Q4H PRN PRN Reason: Pain, severe (8-10) Ceftriaxone Sodium (Rocephin 1 Gram Ivpb) 1 gm in 100 mls @ 100 mls/hr IVPB DAILY [facility] PRN Reason: Protocol Azithromycin (Zithromax 500mg In Ns) 500 mg in 250 mls @ 167 mls/hr IVPB DAILY [facility] PRN Reason: Protocol Lactated Ringer's (Lactated Ringer's) 1,000 mls @ 50 mls/hr IV .Q20H NINA Potassium Chloride (Potassium Chloride 10 Meq/100 Ml) 10 meq in 100 mls @ 50 mls/hr IVPB Q1H [facility] Stop: 07/09/17 10:44 Insulin Human Regular (Humulin R Low) 0 units SC ACHS [facility] PRN Reason: Protocol Levothyroxine Sodium (Synthroid) 100 mcg PO DAILY NINA Polyethylene Glycol (Miralax) 17 gm PO BID NINA Potassium Chloride (Potassium Chloride Oral Soln) 40 meq PO Q2H [facility] Stop: 07/09/17 11:46 Senna/Docusate Sodium (Senokot S 50 Mg-8.6 Mg) 1 tab PO BID [facility] Last Admin: 07/09/17 04:16 Dose: Not Given Physical Exam - Constitutional Appears: Non-toxic, No Acute Distress, Cachectic, Chronically Ill - Head Exam Head Exam: ATRAUMATIC, NORMAL INSPECTION, NORMOCEPHALIC - Eye Exam Eye Exam: EOMI, Normal appearance, PERRL Pupil Exam: PERRL - ENT Exam ENT Exam: Mucous Membranes Dry - Neck Exam Neck exam: Positive for: Full Rom - Respiratory Exam Respiratory Exam: Decreased Breath Sounds, NORMAL BREATHING PATTERN - Cardiovascular Exam Cardiovascular Exam: RRR, +S1, +S2 - GI/Abdominal Exam GI & Abdominal Exam: Distended, Normal Bowel Sounds, Soft, Tenderness. absent: Guarding, Organomegaly Additional comments: PC stent - Rectal Exam Rectal Exam: Deferred - Extremities Exam Extremities exam: Positive for: pedal edema - Neurological Exam Neurological exam: Alert, Oriented x3 - Psychiatric Exam Psychiatric exam: Normal Affect, Normal Mood - Skin Skin Exam: Dry, Intact, Normal Color, Warm Results - Vital Signs Recent Vital Signs: Last Vital Signs Temp 98.0 F 07/09/17 06:00 Pulse 108 H 07/09/17 06:00 Resp 21 07/09/17 06:00 BP 102/67 07/09/17 06:00 Pulse Ox 100 07/09/17 06:00 - Labs Result Diagrams: 07/09/17 06:48 07/09/17 13:16 Labs: Laboratory Results - last 24 hr 07/09/17 07/09/17 07/09/17 01:10 01:10 02:15 WBC RBC Hgb 11.3 L Hct 32.9 L MCV MCH MCHC RDW Plt Count MPV Gran % Lymph % (Auto) [place] % (Auto) Eos % (Auto) Baso % (Auto) Gran # Lymph # (Auto) [place] # (Auto) Eos # (Auto) Baso # (Auto) PT INR D-Dimer, Quantitative pCO2 pO2 HCO3 ABG pH ABG Total CO2 ABG O2 Saturation ABG Base Excess ABG Potassium Glucose Lactate FiO2 Sodium 134 Potassium 3.7 Chloride 95 L Carbon Dioxide 30 Anion Gap 13 BUN 17 Creatinine 0.9 Est GFR ( Amer) > 60 Est GFR (Non-Af Amer) > 60 POC Glucose (mg/dL) Random Glucose 154 H Calcium 8.1 L Phosphorus 3.4 Total Bilirubin AST ALT Alkaline Phosphatase Troponin I 0.02 Total Protein Albumin Globulin Albumin/Globulin Ratio Amylase 73 Lipase 80 TSH 3rd Generation Arterial Blood Potassium 07/09/17 07/09/17 07/09/17 02:15 02:15 02:40 WBC RBC Hgb Hct MCV MCH MCHC RDW Plt Count MPV Gran % Lymph % (Auto) [place] % (Auto) Eos % (Auto) Baso % (Auto) Gran # Lymph # (Auto) [place] # (Auto) Eos # (Auto) Baso # (Auto) PT INR D-Dimer, Quantitative 4615 H pCO2 31 L pO2 77.0 L HCO3 27.1 ABG pH 7.55 H ABG Total CO2 28.1 H ABG O2 Saturation 98.4 H ABG Base Excess 5.2 H ABG Potassium 2.9 L Glucose 168 H Lactate 1.5 FiO2 28.0 Sodium 133.0 Potassium Chloride 95.0 L Carbon Dioxide Anion Gap BUN Creatinine Est GFR ( Amer) Est GFR (Non-Af Amer) POC Glucose (mg/dL) Random Glucose Calcium Phosphorus Total Bilirubin AST ALT Alkaline Phosphatase Troponin I Total Protein Albumin Globulin Albumin/Globulin Ratio Amylase Lipase TSH 3rd Generation 14.60 H Arterial Blood Potassium 2.9 L 07/09/17 07/09/17 07/09/17 06:48 06:48 06:48 WBC 4.7 D RBC 3.34 L Hgb 9.9 L Hct 29.3 L MCV 87.7 MCH 29.6 MCHC 33.8 RDW 15.4 H Plt Count 78 L MPV 9.3 Gran % 84.3 H Lymph % (Auto) 12.5 L [place] % (Auto) 3.0 Eos % (Auto) 0.2 L Baso % (Auto) 0.0 Gran # 3.97 Lymph # (Auto) 0.6 L [place] # (Auto) 0.1 Eos # (Auto) 0.0 Baso # (Auto) 0.00 PT 15.0 H INR 1.30 H D-Dimer, Quantitative pCO2 pO2 HCO3 ABG pH ABG Total CO2 ABG O2 Saturation ABG Base Excess ABG Potassium Glucose Lactate FiO2 Sodium 136 Potassium 2.8 L* D Chloride 96 L Carbon Dioxide 30 Anion Gap 13 BUN 18 Creatinine 0.8 Est GFR ( Amer) > 60 Est GFR (Non-Af Amer) > 60 POC Glucose (mg/dL) Random Glucose 173 H Calcium 7.9 L Phosphorus Total Bilirubin 1.1 AST 30 ALT 41 Alkaline Phosphatase 236 H Troponin I Total Protein 5.2 L Albumin 2.4 L Globulin 2.8 Albumin/Globulin Ratio 0.9 L Amylase Lipase TSH 3rd Generation Arterial Blood Potassium 07/09/17 07:06 WBC RBC Hgb Hct MCV MCH MCHC RDW Plt Count MPV Gran % Lymph % (Auto) [place] % (Auto) Eos % (Auto) Baso % (Auto) Gran # Lymph # (Auto) [place] # (Auto) Eos # (Auto) Baso # (Auto) PT INR D-Dimer, Quantitative pCO2 pO2 HCO3 ABG pH ABG Total CO2 ABG O2 Saturation ABG Base Excess ABG Potassium Glucose Lactate FiO2 Sodium Potassium Chloride Carbon Dioxide Anion Gap BUN Creatinine Est GFR ( Amer) Est GFR (Non-Af Amer) POC Glucose (mg/dL) 180 H Random Glucose Calcium Phosphorus Total Bilirubin AST ALT Alkaline Phosphatase Troponin I Total Protein Albumin Globulin Albumin/Globulin Ratio Amylase Lipase TSH 3rd Generation Arterial Blood Potassium Assessment & Plan - Assessment and Plan (Free Text) Assessment: This is a 72yM recent diagnosis of 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 Headley on Gemcitabin, HTN, hypothryoidism s/p thryoidectomy, DM2, CAD s/p stenting who presented to the ED for worsening abdominal pain and constipation. 1. Ascites 2. Cholangiocarcinoma with metastatic disease 3. Constipation 4. Right pleural effusion 5. HCAP 6. Anasarca Plan: -Continue supportive care with pain control and antiemetics -Ascites plan for paracentesis and fluid analysis to r/o SBP -Right pleural effusion recommend thoracentesis -HCAP, abx per primary team -Pt with percutantious biliary stent, LFTs wnl, no obstruction -Cholangiocarcinoma on chemotherapy per Oncology -Bowel regimen with miralax bid -Continue lasix, monitor BUN/Cr -Advance diet as tolerated -Further medical treatment per primary team -No plan for any GI intervention at this time -Please call with any questions or concerns <Dre Garcia - Last Filed: 07/09/17 15:55> Meds - Medications Medications: Current Medications Aspirin (Aspirin Chewable) 81 mg PO DAILY NINA Docusate Sodium (Colace) 100 mg PO BID PRN PRN Reason: Constipation Enoxaparin Sodium (Lovenox) 70 mg SC Q12H NINA PRN Reason: Protocol Furosemide (Lasix) 20 mg IVP Q12 NINA Ceftriaxone Sodium (Rocephin 1 Gram Ivpb) 1 gm in 100 mls @ 100 mls/hr IVPB DAILY [facility] PRN Reason: Protocol Last Admin: 07/09/17 09:29 Dose: 100 mls/hr Azithromycin (Zithromax 500mg In Ns) 500 mg in 250 mls @ 167 mls/hr IVPB DAILY [facility] PRN Reason: Protocol Last Admin: 07/09/17 09:30 Dose: 167 mls/hr Lactated Ringer's (Lactated Ringer's) 1,000 mls @ 50 mls/hr IV .Q20H [facility] Insulin Human Regular (Humulin R Low) 0 units SC ACHS NINA PRN Reason: Protocol Last Admin: 07/09/17 12:19 Dose: Not Given Levothyroxine Sodium (Synthroid) 100 mcg PO DAILY [facility] Last Admin: 07/09/17 09:30 Dose: 100 mcg Morphine Sulfate (Morphine) 2 mg IVP Q3H PRN PRN Reason: Pain, severe (8-10) Polyethylene Glycol (Miralax) 17 gm PO BID [facility] Last Admin: 07/09/17 09:26 Dose: 17 gm Senna/Docusate Sodium (Senokot S 50 Mg-8.6 Mg) 1 tab PO BID [facility] Last Admin: 07/09/17 09:29 Dose: 1 tab Results - Vital Signs Recent Vital Signs: Last Vital Signs Temp 98.0 F 07/09/17 06:00 Pulse 100 H 07/09/17 10:00 Resp 21 07/09/17 06:00 BP 102/67 07/09/17 06:00 Pulse Ox 100 07/09/17 06:00 - Labs Result Diagrams: 07/09/17 06:48 07/09/17 13:16 Labs: Laboratory Results - last 24 hr 07/09/17 07/09/17 07/09/17 01:10 01:10 02:15 WBC RBC Hgb 11.3 L Hct 32.9 L MCV MCH MCHC RDW Plt Count MPV Gran % Lymph % (Auto) [place] % (Auto) Eos % (Auto) Baso % (Auto) Gran # Lymph # (Auto) [place] # (Auto) Eos # (Auto) Baso # (Auto) PT INR D-Dimer, Quantitative pCO2 pO2 HCO3 ABG pH ABG Total CO2 ABG O2 Saturation ABG Base Excess ABG Potassium Glucose Lactate FiO2 Sodium 134 Potassium 3.7 Chloride 95 L Carbon Dioxide 30 Anion Gap 13 BUN 17 Creatinine 0.9 Est GFR ( Amer) > 60 Est GFR (Non-Af Amer) > 60 POC Glucose (mg/dL) Random Glucose 154 H Calcium 8.1 L Phosphorus 3.4 Magnesium Total Bilirubin AST ALT Alkaline Phosphatase Troponin I 0.02 Total Protein Albumin Globulin Albumin/Globulin Ratio Amylase 73 Lipase 80 Procalcitonin Free T4 Total T3 TSH 3rd Generation Arterial Blood Potassium 07/09/17 07/09/17 07/09/17 02:15 02:15 02:15 WBC RBC Hgb Hct MCV MCH MCHC RDW Plt Count MPV Gran % Lymph % (Auto) [place] % (Auto) Eos % (Auto) Baso % (Auto) Gran # Lymph # (Auto) [place] # (Auto) Eos # (Auto) Baso # (Auto) PT INR D-Dimer, Quantitative 4615 H pCO2 pO2 HCO3 ABG pH ABG Total CO2 ABG O2 Saturation ABG Base Excess ABG Potassium Glucose Lactate FiO2 Sodium Potassium Chloride Carbon Dioxide Anion Gap BUN Creatinine Est GFR ( Amer) Est GFR (Non-Af Amer) POC Glucose (mg/dL) Random Glucose Calcium Phosphorus Magnesium Total Bilirubin AST ALT Alkaline Phosphatase Troponin I Total Protein Albumin Globulin Albumin/Globulin Ratio Amylase Lipase Procalcitonin 1.60 H Free T4 Total T3 TSH 3rd Generation 14.60 H Arterial Blood Potassium 07/09/17 07/09/17 07/09/17 02:40 06:48 06:48 WBC 4.7 D RBC 3.34 L Hgb 9.9 L Hct 29.3 L MCV 87.7 MCH 29.6 MCHC 33.8 RDW 15.4 H Plt Count 78 L MPV 9.3 Gran % 84.3 H Lymph % (Auto) 12.5 L [place] % (Auto) 3.0 Eos % (Auto) 0.2 L Baso % (Auto) 0.0 Gran # 3.97 Lymph # (Auto) 0.6 L [place] # (Auto) 0.1 Eos # (Auto) 0.0 Baso # (Auto) 0.00 PT 15.0 H INR 1.30 H D-Dimer, Quantitative pCO2 31 L pO2 77.0 L HCO3 27.1 ABG pH 7.55 H ABG Total CO2 28.1 H ABG O2 Saturation 98.4 H ABG Base Excess 5.2 H ABG Potassium 2.9 L Glucose 168 H Lactate 1.5 FiO2 28.0 Sodium 133.0 Potassium Chloride 95.0 L Carbon Dioxide Anion Gap BUN Creatinine Est GFR ( Amer) Est GFR (Non-Af Amer) POC Glucose (mg/dL) Random Glucose Calcium Phosphorus Magnesium Total Bilirubin AST ALT Alkaline Phosphatase Troponin I Total Protein Albumin Globulin Albumin/Globulin Ratio Amylase Lipase Procalcitonin Free T4 Total T3 TSH 3rd Generation Arterial Blood Potassium 2.9 L 07/09/17 07/09/17 07/09/17 06:48 07:06 11:13 WBC RBC Hgb Hct MCV MCH MCHC RDW Plt Count MPV Gran % Lymph % (Auto) [place] % (Auto) Eos % (Auto) Baso % (Auto) Gran # Lymph # (Auto) [place] # (Auto) Eos # (Auto) Baso # (Auto) PT INR D-Dimer, Quantitative pCO2 pO2 HCO3 ABG pH ABG Total CO2 ABG O2 Saturation ABG Base Excess ABG Potassium Glucose Lactate FiO2 Sodium 136 Potassium 2.8 L* D Chloride 96 L Carbon Dioxide 30 Anion Gap 13 BUN 18 Creatinine 0.8 Est GFR ( Amer) > 60 Est GFR (Non-Af Amer) > 60 POC Glucose (mg/dL) 180 H 141 H Random Glucose 173 H Calcium 7.9 L Phosphorus Magnesium Total Bilirubin 1.1 AST 30 ALT 41 Alkaline Phosphatase 236 H Troponin I Total Protein 5.2 L Albumin 2.4 L Globulin 2.8 Albumin/Globulin Ratio 0.9 L Amylase Lipase Procalcitonin Free T4 Total T3 TSH 3rd Generation Arterial Blood Potassium 07/09/17 07/09/17 13:16 13:16 WBC RBC Hgb Hct MCV MCH MCHC RDW Plt Count MPV Gran % Lymph % (Auto) [place] % (Auto) Eos % (Auto) Baso % (Auto) Gran # Lymph # (Auto) [place] # (Auto) Eos # (Auto) Baso # (Auto) PT INR D-Dimer, Quantitative pCO2 pO2 HCO3 ABG pH ABG Total CO2 ABG O2 Saturation ABG Base Excess ABG Potassium Glucose Lactate FiO2 Sodium 135 Potassium 4.1 Chloride 97 L Carbon Dioxide 30 Anion Gap 12 BUN 17 Creatinine 0.7 L Est GFR ( Amer) > 60 Est GFR (Non-Af Amer) > 60 POC Glucose (mg/dL) Random Glucose 154 H Calcium 8.0 L Phosphorus Magnesium 1.8 Total Bilirubin AST ALT Alkaline Phosphatase Troponin I Total Protein Albumin Globulin Albumin/Globulin Ratio Amylase Lipase Procalcitonin Free T4 1.00 Total T3 0.44 L TSH 3rd Generation Arterial Blood Potassium Attending/Attestation - Attestation I have personally seen and examined this patient.: Yes I have fully participated in the care of the patient.: Yes I have reviewed all pertinent clinical information: Yes Notes (Text): 07/09/17 15:54 72 year old male with hilar cholangiocarcinoma s/p PTC c/b perihepatic fluid collection s/p drainage, s/p I/E biliary drain admitted with ascites and pleural effusion. Recommend paracentesis. Send fluid for cell count, diff, culture, albumin, TP, bilirubin. Recommend empiric abx for now. Recommend thoracentesis. Adjust diuretics per cardiology.
[2017-07-09] MEDS: Insulin Reg-LOW-Coverage SC SCH ×4 (09:25→22:06)
[2017-07-09] MEDS: POLYETHYLENE GLYCOL 3350 17 GM/Dose PACKET PO SCH ×2 (09:26→17:12)
[2017-07-09] MEDS: Potassium Chloride 40 mEq/30 ml LIQ UD PO SCH ×2 (09:28→10:50)
[2017-07-09] MEDS: cefTRIAXone 1 gm 1 GM/100 ML BAG IVPB SCH (09:29)
[2017-07-09] MEDS: Azithromycin 500MG/NS 250ml 500 MG/250 ML BAG IVPB SCH (09:30)
[2017-07-09] MEDS: Levothyroxine 100 MCG TAB PO SCH (09:30)
--- NOTE | 2017-07-09 09:45 | CP.PCM.CON ---
History of Present Illness - History of Present Illness History of Present Illness: Palliative consult requested by Dr Skyla Morales Reason: Goals of care and advance care planning 72 year old male with history of metastatic cholangiocarcinoma, s/p percutaneous billairy stent who presented on 07/08 with abdominal distention, left sided abdominal pain,constipation and low grade fever. The patient reported that he had not had a bowel movement in 8 days, but was still passing gas. He denied fever, chills, nausea, vomiting and shortness of breath. PMHx;DM, hypothyroidism, cholangeocarcinoma metastatic to liver currently receiving chemotherapy with Platinol and Gemzar one week ago PSH: prostatectomy, thyroidectomy, billiary stent, CAD stent. Social History:Former smoker, no alcohol or drug use. Lives with son Family History: Non contributory. Advance Care Planning: The patient does not have an Advanced Directive> Review of Systems: Past Patient History - Infectious Disease Hx of Infectious Diseases: None - Past Medical History & Family History Past Medical History?: Yes Past Family History: Reviewed and not pertinent - Past Social History Smoking Status: Former Smoker (quit in 2002, smoked for) Alcohol: None Drugs: Denies - CARDIAC Hx Cardiac Disorders: Yes Hx Hypertension: Yes - PULMONARY Hx Respiratory Disorders: No - NEUROLOGICAL Hx Neurological Disorder: No - HEENT Hx HEENT Problems: Yes - RENAL Hx Chronic Kidney Disease: No - ENDOCRINE/METABOLIC Hx Diabetes Mellitus Type 2: Yes - HEMATOLOGICAL/ONCOLOGICAL Hx Cancer: Yes Hx Chemotherapy: Yes - INTEGUMENTARY Hx Dermatological Problems: No - MUSCULOSKELETAL/RHEUMATOLOGICAL Hx Musculoskeletal Disorders: Yes Hx Back Pain: Yes Hx Falls: No - GASTROINTESTINAL Other/Comment: Biliary Drain placed one month ago 05/2017Liver cancer- Chemotherapy - GENITOURINARY/GYNECOLOGICAL Hx Prostate Problems: Yes - PSYCHIATRIC Hx Psychophysiologic Disorder: No Hx Substance Use: No - SURGICAL HISTORY Hx Cardiac Catheterization: Yes Hx Coronary Stent: Yes Hx Thyroidectomy: Yes Other/Comment: Biliary Drain placed 05/2017 - ANESTHESIA Hx Anesthesia: Yes Hx Anesthesia Reactions: Yes Hx Malignant Hyperthermia: No Meds Allergies/Adverse Reactions: Allergies Allergy/AdvReac Type Severity Reaction Status Date / Time No Known Allergies Allergy Verified 06/21/17 00:56 - Medications Medications: Current Medications Aspirin (Aspirin Chewable) 81 mg PO DAILY [facility] Docusate Sodium (Colace) 100 mg PO BID PRN PRN Reason: Constipation Enoxaparin Sodium (Lovenox) 40 mg SC DAILY [facility] PRN Reason: Protocol Furosemide (Lasix) 20 mg IVP Q12 [facility] Hydromorphone HCl (Dilaudid) 0.5 mg IVP Q4H PRN PRN Reason: Pain, severe (8-10) Ceftriaxone Sodium (Rocephin 1 Gram Ivpb) 1 gm in 100 mls @ 100 mls/hr IVPB DAILY [facility] PRN Reason: Protocol Last Admin: 07/09/17 09:29 Dose: 100 mls/hr Azithromycin (Zithromax 500mg In Ns) 500 mg in 250 mls @ 167 mls/hr IVPB DAILY [facility] PRN Reason: Protocol Last Admin: 07/09/17 09:30 Dose: 167 mls/hr Lactated Ringer's (Lactated Ringer's) 1,000 mls @ 50 mls/hr IV .Q20H [facility] Potassium Chloride (Potassium Chloride 10 Meq/100 Ml) 10 meq in 100 mls @ 50 mls/hr IVPB Q1H [facility] Stop: 07/09/17 10:44 Last Admin: 07/09/17 09:27 Dose: 50 mls/hr Insulin Human Regular (Humulin R Low) 0 units SC ACHS [facility] PRN Reason: Protocol Last Admin: 07/09/17 09:25 Dose: Not Given Levothyroxine Sodium (Synthroid) 100 mcg PO DAILY [facility] Last Admin: 07/09/17 09:30 Dose: 100 mcg Polyethylene Glycol (Miralax) 17 gm PO BID [facility] Last Admin: 07/09/17 09:26 Dose: 17 gm Potassium Chloride (Potassium Chloride Oral Soln) 40 meq PO Q2H [facility] Stop: 07/09/17 11:46 Last Admin: 07/09/17 09:28 Dose: 40 meq Senna/Docusate Sodium (Senokot S 50 Mg-8.6 Mg) 1 tab PO BID [facility] Last Admin: 07/09/17 09:29 Dose: 1 tab Physical Exam - Constitutional Appears: Cachectic, Chronically Ill - Head Exam Head Exam: NORMAL INSPECTION - Eye Exam Eye Exam: Normal appearance, PERRL - ENT Exam ENT Exam: Mucous Membranes Moist - Neck Exam Neck exam: Positive for: Normal Inspection - Respiratory Exam Respiratory Exam: Decreased Breath Sounds, NORMAL BREATHING PATTERN - Cardiovascular Exam Cardiovascular Exam: REGULAR RHYTHM, +S1, +S2 - GI/Abdominal Exam GI & Abdominal Exam: Diminished Bowel Sounds, Distended, Firm Additional comments: RUQ duodenal drain - Extremities Exam Additional comments: 2+ edema of both lower extremities - Skin Skin Exam: Dry, Pallor Results - Vital Signs Recent Vital Signs: Last Vital Signs Temp 98.0 F 07/09/17 06:00 Pulse 108 H 07/09/17 06:00 Resp 21 07/09/17 06:00 BP 102/67 07/09/17 06:00 Pulse Ox 100 07/09/17 06:00 - Labs Result Diagrams: 07/09/17 06:48 07/09/17 13:16 Labs: Laboratory Results - last 24 hr 07/09/17 07/09/17 07/09/17 01:10 01:10 02:15 WBC RBC Hgb 11.3 L Hct 32.9 L MCV MCH MCHC RDW Plt Count MPV Gran % Lymph % (Auto) Winston % (Auto) Eos % (Auto) Baso % (Auto) Gran # Lymph # (Auto) Winston # (Auto) Eos # (Auto) Baso # (Auto) PT INR D-Dimer, Quantitative pCO2 pO2 HCO3 ABG pH ABG Total CO2 ABG O2 Saturation ABG Base Excess ABG Potassium Glucose Lactate FiO2 Sodium 134 Potassium 3.7 Chloride 95 L Carbon Dioxide 30 Anion Gap 13 BUN 17 Creatinine 0.9 Est GFR ( Amer) > 60 Est GFR (Non-Af Amer) > 60 POC Glucose (mg/dL) Random Glucose 154 H Calcium 8.1 L Phosphorus 3.4 Total Bilirubin AST ALT Alkaline Phosphatase Troponin I 0.02 Total Protein Albumin Globulin Albumin/Globulin Ratio Amylase 73 Lipase 80 TSH 3rd Generation Arterial Blood Potassium 07/09/17 07/09/17 07/09/17 02:15 02:15 02:40 WBC RBC Hgb Hct MCV MCH MCHC RDW Plt Count MPV Gran % Lymph % (Auto) Winston % (Auto) Eos % (Auto) Baso % (Auto) Gran # Lymph # (Auto) Winston # (Auto) Eos # (Auto) Baso # (Auto) PT INR D-Dimer, Quantitative 4615 H pCO2 31 L pO2 77.0 L HCO3 27.1 ABG pH 7.55 H ABG Total CO2 28.1 H ABG O2 Saturation 98.4 H ABG Base Excess 5.2 H ABG Potassium 2.9 L Glucose 168 H Lactate 1.5 FiO2 28.0 Sodium 133.0 Potassium Chloride 95.0 L Carbon Dioxide Anion Gap BUN Creatinine Est GFR ( Amer) Est GFR (Non-Af Amer) POC Glucose (mg/dL) Random Glucose Calcium Phosphorus Total Bilirubin AST ALT Alkaline Phosphatase Troponin I Total Protein Albumin Globulin Albumin/Globulin Ratio Amylase Lipase TSH 3rd Generation 14.60 H Arterial Blood Potassium 2.9 L 07/09/17 07/09/17 07/09/17 06:48 06:48 06:48 WBC 4.7 D RBC 3.34 L Hgb 9.9 L Hct 29.3 L MCV 87.7 MCH 29.6 MCHC 33.8 RDW 15.4 H Plt Count 78 L MPV 9.3 Gran % 84.3 H Lymph % (Auto) 12.5 L Winston % (Auto) 3.0 Eos % (Auto) 0.2 L Baso % (Auto) 0.0 Gran # 3.97 Lymph # (Auto) 0.6 L Winston # (Auto) 0.1 Eos # (Auto) 0.0 Baso # (Auto) 0.00 PT 15.0 H INR 1.30 H D-Dimer, Quantitative pCO2 pO2 HCO3 ABG pH ABG Total CO2 ABG O2 Saturation ABG Base Excess ABG Potassium Glucose Lactate FiO2 Sodium 136 Potassium 2.8 L* D Chloride 96 L Carbon Dioxide 30 Anion Gap 13 BUN 18 Creatinine 0.8 Est GFR ( Amer) > 60 Est GFR (Non-Af Amer) > 60 POC Glucose (mg/dL) Random Glucose 173 H Calcium 7.9 L Phosphorus Total Bilirubin 1.1 AST 30 ALT 41 Alkaline Phosphatase 236 H Troponin I Total Protein 5.2 L Albumin 2.4 L Globulin 2.8 Albumin/Globulin Ratio 0.9 L Amylase Lipase TSH 3rd Generation Arterial Blood Potassium 07/09/17 07:06 WBC RBC Hgb Hct MCV MCH MCHC RDW Plt Count MPV Gran % Lymph % (Auto) Winston % (Auto) Eos % (Auto) Baso % (Auto) Gran # Lymph # (Auto) Winston # (Auto) Eos # (Auto) Baso # (Auto) PT INR D-Dimer, Quantitative pCO2 pO2 HCO3 ABG pH ABG Total CO2 ABG O2 Saturation ABG Base Excess ABG Potassium Glucose Lactate FiO2 Sodium Potassium Chloride Carbon Dioxide Anion Gap BUN Creatinine Est GFR ( Amer) Est GFR (Non-Af Amer) POC Glucose (mg/dL) 180 H Random Glucose Calcium Phosphorus Total Bilirubin AST ALT Alkaline Phosphatase Troponin I Total Protein Albumin Globulin Albumin/Globulin Ratio Amylase Lipase TSH 3rd Generation Arterial Blood Potassium Assessment & Plan - Assessment and Plan (Free Text) Assessment: 72 year old Citizen Of [place] speaking male with history of DM, metastatic cholangiocarcinoma who is admitted with abdominal pain, ascites, bilateral DVT' s common femoral vein bifurcations, thrombocytopenia, right pleural effusion and constipation. I spoke at length with patients son,Lewis. Son understands that his father has advanced cancer. Son states that his father intends to continue treatment. Advance care planning regarding resuscitation with CPR/ and intubation was also discussed. Benefits and burdens of aggressive resuscitation explained, specifically burdens in patient with advanced disease. Son states that he has not had this conversation with his father. Son intends to speak with his father about resuscitation wishes. Time spent in goals of care and advance care planning with patients son, 20 minutes Plan: Goals of care and advance care planning Constipation: Fleet enema/ Relistor given> passed soft BM. Maintain bowel regimen Senna/Docusate /Miralax daily. Pain: Dilaudid 0.5 mg IV very 4 hours as needed. Thrombocytopenia: Monitor, patient s/p chemotherapy 1 week ago Ascites/pleural effusion: IR consulted for paracentisis/thoracentisis.
[2017-07-09] MEDS ORDERED: Pantoprazole 20 mg EC Tab PO SCH (10:00)
[2017-07-09] MEDS ORDERED: Enoxaparin 40 mg Syringe SC SCH (10:00)
--- NOTE | 2017-07-09 11:48 | CP.PCM.PN ---
Addendum entered and electronically signed by Gabrielle Cano DO 07/09/17 15:41: Duplex U/S pos for B/L common femoral vein DVT, started on therapeutic lovenox Original Note: <Gabrielle Cano - Last Filed: 07/09/17 13:08> Subjective - Date & Time of Evaluation Date of Evaluation: 07/09/17 Time of Evaluation: 13:02 - Subjective Subjective: IM progress note for Dr. Morales-Gabrielle Cano, PGY-1 Pt S & E at bedside at 0750 and 1050. Interview using MyRoll, interpretor Angela Flores #[id number] Pt reports that his severe abdominal pain is resolved. He is not currently having any problems. Per nursing, pt had one small soft BM overnight. Objective - Vital Signs/Intake and Output Vital Signs (last 24 hours): Temp Pulse Resp BP Pulse Ox 98.0 F 108 H 21 102/67 100 07/09/17 06:00 07/09/17 06:00 07/09/17 06:00 07/09/17 06:00 07/09/17 06:00 Intake and Output: 07/09/17 07/09/17 06:59 18:59 Intake Total 120 Output Total 600 Balance -480 - Medications Medications: Current Medications Aspirin (Aspirin Chewable) 81 mg PO DAILY [facility] Docusate Sodium (Colace) 100 mg PO BID PRN PRN Reason: Constipation Enoxaparin Sodium (Lovenox) 40 mg SC DAILY [facility] PRN Reason: Protocol Furosemide (Lasix) 20 mg IVP Q12 [facility] Hydromorphone HCl (Dilaudid) 0.5 mg IVP Q4H [facility]N PRN Reason: Pain, severe (8-10) Last Admin: 07/09/17 10:50 Dose: 0.5 mg Ceftriaxone Sodium (Rocephin 1 Gram Ivpb) 1 gm in 100 mls @ 100 mls/hr IVPB DAILY [facility] PRN Reason: Protocol Last Admin: 07/09/17 09:29 Dose: 100 mls/hr Azithromycin (Zithromax 500mg In Ns) 500 mg in 250 mls @ 167 mls/hr IVPB DAILY [facility] PRN Reason: Protocol Last Admin: 07/09/17 09:30 Dose: 167 mls/hr Lactated Ringer's (Lactated Ringer's) 1,000 mls @ 50 mls/hr IV .Q20H [facility] Insulin Human Regular (Humulin R Low) 0 units SC ACHS [facility] PRN Reason: Protocol Last Admin: 07/09/17 09:25 Dose: Not Given Levothyroxine Sodium (Synthroid) 100 mcg PO DAILY [facility] Last Admin: 07/09/17 09:30 Dose: 100 mcg Polyethylene Glycol (Miralax) 17 gm PO BID [facility] Last Admin: 07/09/17 09:26 Dose: 17 gm Senna/Docusate Sodium (Senokot S 50 Mg-8.6 Mg) 1 tab PO BID [facility] Last Admin: 07/09/17 09:29 Dose: 1 tab - Labs Labs: 07/09/17 06:48 07/09/17 06:48 PT 15.0 SECONDS (9.4-12.5) H 07/09/17 06:48 INR 1.30 (0.93-1.08) H 07/09/17 06:48 APTT 27.0 Seconds (25.1-36.5) 07/08/17 17:35 - Constitutional Appears: Non-toxic, No Acute Distress, Cachectic - Head Exam Head Exam: ATRAUMATIC, NORMAL INSPECTION, NORMOCEPHALIC - Eye Exam Eye Exam: EOMI, Normal appearance - ENT Exam ENT Exam: Mucous Membranes Moist, Normal Exam - Neck Exam Neck Exam: Full ROM, Normal Inspection - Respiratory Exam Respiratory Exam: Clear to Ausculation Bilateral, NORMAL BREATHING PATTERN - Cardiovascular Exam Cardiovascular Exam: REGULAR RHYTHM, +S1, +S2 - GI/Abdominal Exam GI & Abdominal Exam: Distended (moderately), Soft, Normal Bowel Sounds. absent : Guarding, Rigid, Tenderness Additional comments: RUQ w/blue drain in place- capped - Extremities Exam Extremities Exam: Pedal Edema (Bilateral, 3+ pitting edema, R>L, RLE with skin darkening). absent: Normal Inspection - Neurological Exam Neurological Exam: Alert, Awake, CN II-XII Intact, Oriented x3 - Psychiatric Exam Psychiatric exam: Normal Affect, Normal Mood - Skin Skin Exam: Dry, Intact, Normal Color, Warm Additional comments: RLE distal skin darkened Assessment and Plan - Assessment and Plan (Free Text) Assessment: 72M [place] w/PMH sig for stage 4 cholangiocarcinoma s/p chemo (2 rounds), s/ p IR drain of subcapsular hematoma, s/p conversion to external drain into duodenum on, CAD admitted for ab pain, distention, constipation w/Right pleural effusion, compressive atelectasis, with stable tumor burden. Plan: Ab pain/distention in setting of stage 4 cholangiocarcinoma on chemo (2 rounds) Rocephin for SBP ppx Dilaudid NPO FU procalc FU blood cx FU urine cx ID consulted GI consulted - no intervention, ADAT IR consulted- for paracentesis/thoracentesis Surgery consulted- no sx intervention at this time, bowel regimen Onc consulted Constipation Colace [place] Miralax Monitor Pleural effusion/consolidation Azithromycin CTA-neg for PE Thoracentesis Bipap Encourage incentive spirometer use FU echo FU body fluid cell count ID consulted Cardio consulted Severe hypokalemia K 2.8 Replaced FU BMP & Mag at 2pm Hypothyroidism home med: synthroid FT4 DM ISS Accuchecks LE edema FU Duplex U/S CTA neg for PE CAD ASA Lasix Cards consulted GI/DVT ppx Lovenox Protonix Dispo Pallative care PT Paracentesis DW attending Rachael, PGY-1 <Gómez Morales - Last Filed: 07/10/17 14:19> Objective - Vital Signs/Intake and Output Vital Signs (last 24 hours): Temp Pulse Resp BP Pulse Ox 98.2 F 62 20 125/76 97 07/10/17 06:00 07/10/17 06:00 07/10/17 06:00 07/10/17 06:00 07/10/17 06:00 Intake and Output: 07/10/17 07/10/17 06:59 18:59 Intake Total 420 0 Output Total 400 200 Balance 20 -200 - Medications Medications: Current Medications Aspirin (Aspirin Chewable) 81 mg PO DAILY [facility] Last Admin: 07/09/17 17:11 Dose: Not Given Docusate Sodium (Colace) 100 mg PO BID PRN PRN Reason: Constipation Enoxaparin Sodium (Lovenox) 60 mg SC Q12H [facility] PRN Reason: Protocol Last Admin: 07/10/17 13:53 Dose: Not Given Ceftriaxone Sodium (Rocephin 1 Gram Ivpb) 1 gm in 100 mls @ 100 mls/hr IVPB DAILY [facility] PRN Reason: Protocol Last Admin: 07/10/17 09:14 Dose: 100 mls/hr Azithromycin (Zithromax 500mg In Ns) 500 mg in 250 mls @ 167 mls/hr IVPB DAILY [facility] PRN Reason: Protocol Last Admin: 07/10/17 09:14 Dose: 167 mls/hr Insulin Human Regular (Humulin R Low) 0 units SC ACHS [facility] PRN Reason: Protocol Last Admin: 07/10/17 12:04 Dose: Not Given Levothyroxine Sodium (Synthroid) 100 mcg PO DAILY [facility] Last Admin: 07/10/17 09:14 Dose: 100 mcg Metoprolol Tartrate (Lopressor) 5 mg IVP Q6 PRN PRN Reason: Heart rate Morphine Sulfate (Morphine) 4 mg IVP Q3H [facility]N PRN Reason: Pain, severe (8-10) Polyethylene Glycol (Miralax) 17 gm PO BID [facility] Last Admin: 07/10/17 09:13 Dose: 17 gm Senna/Docusate Sodium (Senokot S 50 Mg-8.6 Mg) 1 tab PO BID [facility] Last Admin: 07/10/17 09:14 Dose: 1 tab - Labs Labs: 07/10/17 06:18 07/10/17 06:18 PT 12.2 SECONDS (9.4-12.5) 07/10/17 06:18 INR 1.06 (0.93-1.08) 07/10/17 06:18 APTT 27.0 Seconds (25.1-36.5) 07/08/17 17:35 Attending/Attestation - Attestation I have personally seen and examined this patient.: Yes I have fully participated in the care of the patient.: Yes I have reviewed all pertinent clinical information, including history, physical exam and plan: Yes Notes (Text): 07/10/17 14:03 attending note; Patient seen and examined with resident. Patient is a 72 year old male with past medical history of cholangiocarcinoma with liver mets, hypertension, diabetes, CAD,and intrahepatic ductal dilatation s/p biliary drain placement presented with abdominal pain. Found to have ascites and right-sided pleural effusion. patient also has consolidations on the right side. started on Rocephin and Zithromax. Patient is currently afebrile and nontoxic. ID evaluation requested Patient has episodes of tachycardia. Hypotension resolved. cardiology evaluation appreciated. Echocardiogrm ordered. Possibly secondary to effusion/pain. Currently on IV Dilaudid. Increased dose as needed. Case discussed with IR for possible paracentesis/thoracentesis. Bilateral lower extremity DVT. Started on subcutaneous Lovenox. Follow-up with oncology closely. Patient recently had treatment with cisplatin and gemcitabine. prognosis is poor. Palliative care evaluation requested. Case discussed with son in detail. 07/10/17 14:19
[2017-07-09] MEDS ORDERED: Morphine 2 mg/2 mL syringe IVP PRN (13:21)
[2017-07-09 13:36] LABS: BLOOD UREA NITROGEN 17 mg/dL (7-21); GFR AFRICAN-AMERICAN > 60; GFR NON-AFRICAN AMERICAN > 60
[2017-07-09 14:10] LABS: T3 0.44 ng/mL (0.97-1.69)
--- NOTE | 2017-07-09 14:33 | US ---
HISTORY: Leg pain and swelling. Evaluate for DVT cholangiocarcinoma. PHYSICIAN(S): Duarte Guerra MD. TECHNIQUE: Duplex sonography and color-flow Doppler with graded compression were used to evaluate the deep venous systems of both lower extremities. FINDINGS: There is occlusive thrombus at the right common femoral vein bifurcation extending into the proximal right femoral vein and right profunda femoral vein. The mid to distal right femoral vein is patent and compressible. The right popliteal vein is patent and compressible. No tibial thrombus is appreciated. There is focal adherent partially occlusive thrombus in the left common femoral vein bifurcation. Otherwise the left femoral vein, popliteal vein and visualized left tibial veins are patent and compressible. IMPRESSION: Focal, localized bilateral DVT at the common femoral vein bifurcations.
[2017-07-09] MEDS ORDERED: Enoxaparin 80 mg Syringe SC STA (15:39)
--- NOTE | 2017-07-09 19:52 | CP.PCM.CON ---
History of Present Illness - History of Present Illness History of Present Illness: Consult Note for Dr. Headley, [facility] Onc 72 south [place]orean speaking M with a PMHx of cholangiocarcinoma with liver mets, hypertension, diabetes, CAD s/p stents, obstructive jaundice, and intrahepatic ducal dilatation s/p biliary drain placement, presents to the emergency department for 8 days of constipation, worsening abdominal distension and tenderness specifically on the left quadrants. Patient admitted to constipation upon admission for approximately a week however was able to have a small bm this morning. CT abdomen demonstrated increased ascites and abdominal distention , and right pleural effusion with underlying PNA. No prior colonoscopy or EGD. Patient was seen and examined at bedside. Patient states his abdominal pain has improved. He has persistent complaints of lower extremity swelling and tenderness. Patient denied fever, chills, shortness of breath, chest pains, abdominal pains, nausea, vomiting, diarrhea, dysuria. PMH: cholangiocarcinoma with liver mets, hypertension, diabetes, CAD s/p stents , obstructive jaundice, and intrahepatic ducal dilatation PSH: prostatectomy, thryoidectomy, percutaneous biliary stent, coronary artery stenting Fam Hx: Denied Soc Hx: Lives with son, former smoker (quit > 25 yr ago), denies alcohol, illicit drug use Meds: MAR Reviewed Allergies: NKDA Review of Systems - Review of Systems Review of Systems: as per HPI otherwise negative Past Patient History - Infectious Disease Hx of Infectious Diseases: None - Past Medical History & Family History Past Medical History?: Yes Past Family History: Reviewed and not pertinent - Past Social History Smoking Status: Former Smoker (quit in 2002, smoked for) Alcohol: None Drugs: Denies - CARDIAC Hx Cardiac Disorders: Yes Hx Hypertension: Yes - PULMONARY Hx Respiratory Disorders: No - NEUROLOGICAL Hx Neurological Disorder: No - HEENT Hx HEENT Problems: Yes - RENAL Hx Chronic Kidney Disease: No - ENDOCRINE/METABOLIC Hx Diabetes Mellitus Type 2: Yes - HEMATOLOGICAL/ONCOLOGICAL Hx Cancer: Yes Hx Chemotherapy: Yes - INTEGUMENTARY Hx Dermatological Problems: No - MUSCULOSKELETAL/RHEUMATOLOGICAL Hx Musculoskeletal Disorders: Yes Hx Back Pain: Yes Hx Falls: No - GASTROINTESTINAL Other/Comment: Biliary Drain placed one month ago 05/2017Liver cancer- Chemotherapy - GENITOURINARY/GYNECOLOGICAL Hx Prostate Problems: Yes - PSYCHIATRIC Hx Psychophysiologic Disorder: No Hx Substance Use: No - SURGICAL HISTORY Hx Cardiac Catheterization: Yes Hx Coronary Stent: Yes Hx Thyroidectomy: Yes Other/Comment: Biliary Drain placed 05/2017 - ANESTHESIA Hx Anesthesia: Yes Hx Anesthesia Reactions: Yes Hx Malignant Hyperthermia: No Meds Allergies/Adverse Reactions: Allergies Allergy/AdvReac Type Severity Reaction Status Date / Time No Known Allergies Allergy Verified 06/21/17 00:56 - Medications Medications: Current Medications Aspirin (Aspirin Chewable) 81 mg PO DAILY [facility] Last Admin: 07/09/17 17:11 Dose: Not Given Docusate Sodium (Colace) 100 mg PO BID PRN PRN Reason: Constipation Enoxaparin Sodium (Lovenox) 70 mg SC Q12H [facility] PRN Reason: Protocol Ceftriaxone Sodium (Rocephin 1 Gram Ivpb) 1 gm in 100 mls @ 100 mls/hr IVPB DAILY [facility] PRN Reason: Protocol Last Admin: 07/09/17 09:29 Dose: 100 mls/hr Azithromycin (Zithromax 500mg In Ns) 500 mg in 250 mls @ 167 mls/hr IVPB DAILY [facility] PRN Reason: Protocol Last Admin: 07/09/17 09:30 Dose: 167 mls/hr Lactated Ringer's (Lactated Ringer's) 1,000 mls @ 50 mls/hr IV .Q20H [facility] Insulin Human Regular (Humulin R Low) 0 units SC ACHS [facility] PRN Reason: Protocol Last Admin: 07/09/17 17:12 Dose: Not Given Levothyroxine Sodium (Synthroid) 100 mcg PO DAILY [facility] Last Admin: 07/09/17 09:30 Dose: 100 mcg Morphine Sulfate (Morphine) 2 mg IVP Q3H PRN PRN Reason: Pain, severe (8-10) Polyethylene Glycol (Miralax) 17 gm PO BID [facility] Last Admin: 07/09/17 17:12 Dose: 17 gm Senna/Docusate Sodium (Senokot S 50 Mg-8.6 Mg) 1 tab PO BID [facility] Last Admin: 07/09/17 17:13 Dose: 1 tab Physical Exam - Constitutional Appears: No Acute Distress - Head Exam Head Exam: ATRAUMATIC, NORMAL INSPECTION, NORMOCEPHALIC - Eye Exam Eye Exam: EOMI, Normal appearance, PERRL Pupil Exam: NORMAL ACCOMODATION, PERRL - ENT Exam ENT Exam: Mucous Membranes Moist, Normal Exam - Respiratory Exam Respiratory Exam: Decreased Breath Sounds - Cardiovascular Exam Cardiovascular Exam: REGULAR RHYTHM, +S1, +S2 - GI/Abdominal Exam GI & Abdominal Exam: Normal Bowel Sounds, Soft. absent: Tenderness - Extremities Exam Extremities exam: Positive for: pedal edema (+4) - Neurological Exam Neurological exam: Alert, CN II-XII Intact, Oriented x3, Reflexes Normal - Psychiatric Exam Psychiatric exam: Normal Affect, Normal Mood - Skin Skin Exam: Dry, Intact, Normal Color, Warm Results - Vital Signs Recent Vital Signs: Last Vital Signs Temp 98.1 F 07/09/17 16:39 Pulse 108 H 07/09/17 18:00 Resp 20 07/09/17 16:39 BP 105/68 07/09/17 16:39 Pulse Ox 99 07/09/17 16:39 - Labs Result Diagrams: 07/09/17 06:48 07/09/17 13:16 Labs: Laboratory Results - last 24 hr 07/09/17 07/09/17 07/09/17 01:10 01:10 02:15 WBC RBC Hgb 11.3 L Hct 32.9 L MCV MCH MCHC RDW Plt Count MPV Gran % Lymph % (Auto) [place] % (Auto) Eos % (Auto) Baso % (Auto) Gran # Lymph # (Auto) [place] # (Auto) Eos # (Auto) Baso # (Auto) PT INR D-Dimer, Quantitative pCO2 pO2 HCO3 ABG pH ABG Total CO2 ABG O2 Saturation ABG Base Excess ABG Potassium Glucose Lactate FiO2 Sodium 134 Potassium 3.7 Chloride 95 L Carbon Dioxide 30 Anion Gap 13 BUN 17 Creatinine 0.9 Est GFR ( Amer) > 60 Est GFR (Non-Af Amer) > 60 POC Glucose (mg/dL) Random Glucose 154 H Calcium 8.1 L Phosphorus 3.4 Magnesium Total Bilirubin AST ALT Alkaline Phosphatase Troponin I 0.02 Total Protein Albumin Globulin Albumin/Globulin Ratio Amylase 73 Lipase 80 Procalcitonin Free T4 Total T3 TSH 3rd Generation Arterial Blood Potassium 07/09/17 07/09/17 07/09/17 02:15 02:15 02:15 WBC RBC Hgb Hct MCV MCH MCHC RDW Plt Count MPV Gran % Lymph % (Auto) [place] % (Auto) Eos % (Auto) Baso % (Auto) Gran # Lymph # (Auto) [place] # (Auto) Eos # (Auto) Baso # (Auto) PT INR D-Dimer, Quantitative 4615 H pCO2 pO2 HCO3 ABG pH ABG Total CO2 ABG O2 Saturation ABG Base Excess ABG Potassium Glucose Lactate FiO2 Sodium Potassium Chloride Carbon Dioxide Anion Gap BUN Creatinine Est GFR ( Amer) Est GFR (Non-Af Amer) POC Glucose (mg/dL) Random Glucose Calcium Phosphorus Magnesium Total Bilirubin AST ALT Alkaline Phosphatase Troponin I Total Protein Albumin Globulin Albumin/Globulin Ratio Amylase Lipase Procalcitonin 1.60 H Free T4 Total T3 TSH 3rd Generation 14.60 H Arterial Blood Potassium 07/09/17 07/09/17 07/09/17 02:40 06:48 06:48 WBC 4.7 D RBC 3.34 L Hgb 9.9 L Hct 29.3 L MCV 87.7 MCH 29.6 MCHC 33.8 RDW 15.4 H Plt Count 78 L MPV 9.3 Gran % 84.3 H Lymph % (Auto) 12.5 L [place] % (Auto) 3.0 Eos % (Auto) 0.2 L Baso % (Auto) 0.0 Gran # 3.97 Lymph # (Auto) 0.6 L [place] # (Auto) 0.1 Eos # (Auto) 0.0 Baso # (Auto) 0.00 PT 15.0 H INR 1.30 H D-Dimer, Quantitative pCO2 31 L pO2 77.0 L HCO3 27.1 ABG pH 7.55 H ABG Total CO2 28.1 H ABG O2 Saturation 98.4 H ABG Base Excess 5.2 H ABG Potassium 2.9 L Glucose 168 H Lactate 1.5 FiO2 28.0 Sodium 133.0 Potassium Chloride 95.0 L Carbon Dioxide Anion Gap BUN Creatinine Est GFR ( Amer) Est GFR (Non-Af Amer) POC Glucose (mg/dL) Random Glucose Calcium Phosphorus Magnesium Total Bilirubin AST ALT Alkaline Phosphatase Troponin I Total Protein Albumin Globulin Albumin/Globulin Ratio Amylase Lipase Procalcitonin Free T4 Total T3 TSH 3rd Generation Arterial Blood Potassium 2.9 L 07/09/17 07/09/17 07/09/17 06:48 07:06 11:13 WBC RBC Hgb Hct MCV MCH MCHC RDW Plt Count MPV Gran % Lymph % (Auto) [place] % (Auto) Eos % (Auto) Baso % (Auto) Gran # Lymph # (Auto) [place] # (Auto) Eos # (Auto) Baso # (Auto) PT INR D-Dimer, Quantitative pCO2 pO2 HCO3 ABG pH ABG Total CO2 ABG O2 Saturation ABG Base Excess ABG Potassium Glucose Lactate FiO2 Sodium 136 Potassium 2.8 L* D Chloride 96 L Carbon Dioxide 30 Anion Gap 13 BUN 18 Creatinine 0.8 Est GFR ( Amer) > 60 Est GFR (Non-Af Amer) > 60 POC Glucose (mg/dL) 180 H 141 H Random Glucose 173 H Calcium 7.9 L Phosphorus Magnesium Total Bilirubin 1.1 AST 30 ALT 41 Alkaline Phosphatase 236 H Troponin I Total Protein 5.2 L Albumin 2.4 L Globulin 2.8 Albumin/Globulin Ratio 0.9 L Amylase Lipase Procalcitonin Free T4 Total T3 TSH 3rd Generation Arterial Blood Potassium 07/09/17 07/09/17 07/09/17 13:16 13:16 16:36 WBC RBC Hgb Hct MCV MCH MCHC RDW Plt Count MPV Gran % Lymph % (Auto) [place] % (Auto) Eos % (Auto) Baso % (Auto) Gran # Lymph # (Auto) [place] # (Auto) Eos # (Auto) Baso # (Auto) PT INR D-Dimer, Quantitative pCO2 pO2 HCO3 ABG pH ABG Total CO2 ABG O2 Saturation ABG Base Excess ABG Potassium Glucose Lactate FiO2 Sodium 135 Potassium 4.1 Chloride 97 L Carbon Dioxide 30 Anion Gap 12 BUN 17 Creatinine 0.7 L Est GFR ( Amer) > 60 Est GFR (Non-Af Amer) > 60 POC Glucose (mg/dL) 134 H Random Glucose 154 H Calcium 8.0 L Phosphorus Magnesium 1.8 Total Bilirubin AST ALT Alkaline Phosphatase Troponin I Total Protein Albumin Globulin Albumin/Globulin Ratio Amylase Lipase Procalcitonin Free T4 1.00 Total T3 0.44 L TSH 3rd Generation Arterial Blood Potassium Assessment & Plan - Assessment and Plan (Free Text) Assessment: 72 M with a PMHx of cholangiocarcinoma with metastasis to the liver s/p percutaneous biliary stent, currently on chemotherapy of [place] and Gemcitabin , pending ytterium evaluation admitted with progressively worsening abdominal pain constipation and distention. Pt found to have large ascites. IR consulted for paracentesis/thoracentesis fu cytology of fluid analysis, On empiric abx for SBP. Patient on diuretics at home however questionable compliance. Hold lasix on account of electrolyte imbalance. Supplement potassium for hypokalemia. Pt found to have b/l DVT, on therapeutic lovenox. Will adjust pain management from dilaudid to morphine 2mg q3h. Aggressive bowel regimen. PT/OT, OOB
--- NOTE | 2017-07-09 19:58 | CARD ---
APPROVED REPORT EXAM: Two-dimensional and M-mode echocardiogram with Doppler and color Doppler. INDICATION Dyspnea Cardiac Disease: CAD 2D DIMENSIONS Left Atrium (2D)4.0 (1.6-4.0cm)IVSd0.9 (0.7-1.1cm) LVDd4.1 (3.9-5.9cm)PWd1.1 (0.7-1.1cm) LVDs2.9 (2.5-4.0cm)FS (%) 29.2 % LVEF (%)56.5 (>50%) M-Mode DIMENSIONS Aortic Root3.30 (2.2-3.7cm)Aortic Cusp Exc.1.90 (1.5-2.0cm) Aortic Valve AoV Peak Qkmleglx250.0cm/Tara Peak GR.10mmHg Mitral Valve MV E Cknrixjt27.8cm/sMV A Epmboelq91.1cm/sE/A ratio0.6 TDI Lateral E' Peak V13.10cm/sMedial E' Peak V10.40cm/sE/Lateral E'4.0 E/Medial E'5.0 Pulmonary Valve PV Peak Okpcsljv899.0cm/sPV Peak Grad.4mmHg Tricuspid Valve TR Peak [id number]/sRAP [id number] Peak Gr.37mmHg [id number] LEFT VENTRICLE The left ventricle is normal size. There is normal left ventricular wall thickness. The left ventricular ejection fraction is within the normal range. Mild septal hypokinesis No left ventricle thrombus noted on this study. RIGHT VENTRICLE The right ventricle is normal size. There is normal right ventricular wall thickness. The right ventricular systolic function is normal. ATRIA The left atrium size is normal. The right atrium size is normal. AORTIC VALVE The aortic valve is mildly thickened. No aortic regurgitation is present. There is no aortic valvular stenosis. MITRAL VALVE The mitral valve is mildly thickened. Mitral regurgitation is mild. TRICUSPID VALVE There is mild to moderate pulmonary hypertension. GREAT VESSELS The aortic root is normal in size. The IVC is normal in size and collapses >50% with inspiration. PERICARDIAL EFFUSION There is a small circumferential pericardial effusion. <Conclusion> The left ventricle is normal size. There is normal left ventricular wall thickness. The left ventricular ejection fraction is within the normal range. Mild septal hypokinesis Mitral regurgitation is mild. There is mild to moderate pulmonary hypertension.
--- NOTE | 2017-07-09 20:26 | CP.PCM.CON ---
History of Present Illness - History of Present Illness History of Present Illness: Infectious Disease Consultation: July 09, 2017 72 khmer speaking Citizen Of [place] male with a PMHx of cholangiocarcinoma with liver mets, hypertension, diabetes, CAD s/p stents, obstructive jaundice, and intrahepatic ducal dilatation s/p biliary drain placement, presents to the emergency department for 8 days of constipation, worsening abdominal distension and tenderness specifically on the left quadrants. Patient admitted to constipation upon admission for approximately a week however was able to have a small bm this morning. Poor PO intake for one day prior to admission. CT abdomen demonstrated increased ascites and abdominal distention, and right pleural effusion with underlying PNA. Patient was seen and examined at bedside. Patient stating now that his abdominal pain has improved. History of lower extremity swelling and tenderness. Patient denies fever, chills, shortness of breath, chest pains, abdominal pains, nausea, vomiting, diarrhea, dysuria. He is awaiting IR evaluation for paracentesis/thoracentesis. On Ceftriaxone and Azithromycin for antibiotic coverage. PMHx: cholangiocarcinoma with liver mets, hypertension, diabetes, CAD s/p stents, obstructive jaundice, liver mass, and intrahepatic ducal dilatation s/p biliary drain placement PSHx: Biliary drain placement by IR at [facility], Prostate surgery, Thyroidectomy, cardiac stenting Allergies: NKDA Social Hx: lives with son Ex-smoker stopped 25 years ago No EtOH or illicit drug use Active Medications Aspirin (Aspirin Chewable) 81 mg PO DAILY [facility] Last Admin: 07/09/17 17:11 Dose: Not Given Docusate Sodium (Colace) 100 mg PO BID PRN PRN Reason: Constipation Enoxaparin Sodium (Lovenox) 70 mg SC Q12H [facility] PRN Reason: Protocol Ceftriaxone Sodium (Rocephin 1 Gram Ivpb) 1 gm in 100 mls @ 100 mls/hr IVPB DAILY [facility] PRN Reason: Protocol Last Admin: 07/09/17 09:29 Dose: 100 mls/hr Azithromycin (Zithromax 500mg In Ns) 500 mg in 250 mls @ 167 mls/hr IVPB DAILY [facility] PRN Reason: Protocol Last Admin: 07/09/17 09:30 Dose: 167 mls/hr Lactated Ringer's (Lactated Ringer's) 1,000 mls @ 50 mls/hr IV .Q20H [facility] Insulin Human Regular (Humulin R Low) 0 units SC ACHS [facility] PRN Reason: Protocol Last Admin: 07/09/17 17:12 Dose: Not Given Levothyroxine Sodium (Synthroid) 100 mcg PO DAILY [facility] Last Admin: 07/09/17 09:30 Dose: 100 mcg Morphine Sulfate (Morphine) 2 mg IVP Q3H PRN PRN Reason: Pain, severe (8-10) Polyethylene Glycol (Miralax) 17 gm PO BID [facility] Last Admin: 07/09/17 17:12 Dose: 17 gm Senna/Docusate Sodium (Senokot S 50 Mg-8.6 Mg) 1 tab PO BID [facility] Last Admin: 07/09/17 17:13 Dose: 1 tab Family Hx: none given ROS: No fevers, chills, nausea, vomiting, diarrhea, headaches, dizziness, chest pain , abdominal pain, melena, hematuria, hematemesis, hematochezia, depression, anxiety, diarrhea. Past Patient History - Infectious Disease Hx of Infectious Diseases: None - Past Medical History & Family History Past Medical History?: Yes Past Family History: Reviewed and not pertinent - Past Social History Smoking Status: Former Smoker (quit in 2002, smoked for) Alcohol: None Drugs: Denies - CARDIAC Hx Cardiac Disorders: Yes Hx Hypertension: Yes - PULMONARY Hx Respiratory Disorders: No - NEUROLOGICAL Hx Neurological Disorder: No - HEENT Hx HEENT Problems: Yes - RENAL Hx Chronic Kidney Disease: No - ENDOCRINE/METABOLIC Hx Diabetes Mellitus Type 2: Yes - HEMATOLOGICAL/ONCOLOGICAL Hx Cancer: Yes Hx Chemotherapy: Yes - INTEGUMENTARY Hx Dermatological Problems: No - MUSCULOSKELETAL/RHEUMATOLOGICAL Hx Musculoskeletal Disorders: Yes Hx Back Pain: Yes Hx Falls: No - GASTROINTESTINAL Other/Comment: Biliary Drain placed one month ago 05/2017Liver cancer- Chemotherapy - GENITOURINARY/GYNECOLOGICAL Hx Prostate Problems: Yes - PSYCHIATRIC Hx Psychophysiologic Disorder: No Hx Substance Use: No - SURGICAL HISTORY Hx Cardiac Catheterization: Yes Hx Coronary Stent: Yes Hx Thyroidectomy: Yes Other/Comment: Biliary Drain placed 05/2017 - ANESTHESIA Hx Anesthesia: Yes Hx Anesthesia Reactions: Yes Hx Malignant Hyperthermia: No Meds Allergies/Adverse Reactions: Allergies Allergy/AdvReac Type Severity Reaction Status Date / Time No Known Allergies Allergy Verified 06/21/17 00:56 - Medications Medications: Current Medications Aspirin (Aspirin Chewable) 81 mg PO DAILY [facility] Last Admin: 07/09/17 17:11 Dose: Not Given Docusate Sodium (Colace) 100 mg PO BID PRN PRN Reason: Constipation Enoxaparin Sodium (Lovenox) 70 mg SC Q12H [facility] PRN Reason: Protocol Ceftriaxone Sodium (Rocephin 1 Gram Ivpb) 1 gm in 100 mls @ 100 mls/hr IVPB DAILY [facility] PRN Reason: Protocol Last Admin: 07/09/17 09:29 Dose: 100 mls/hr Azithromycin (Zithromax 500mg In Ns) 500 mg in 250 mls @ 167 mls/hr IVPB DAILY [facility] PRN Reason: Protocol Last Admin: 07/09/17 09:30 Dose: 167 mls/hr Lactated Ringer's (Lactated Ringer's) 1,000 mls @ 50 mls/hr IV .Q20H [facility] Insulin Human Regular (Humulin R Low) 0 units SC ACHS [facility] PRN Reason: Protocol Last Admin: 07/09/17 17:12 Dose: Not Given Levothyroxine Sodium (Synthroid) 100 mcg PO DAILY [facility] Last Admin: 07/09/17 09:30 Dose: 100 mcg Morphine Sulfate (Morphine) 2 mg IVP Q3H PRN PRN Reason: Pain, severe (8-10) Polyethylene Glycol (Miralax) 17 gm PO BID [facility] Last Admin: 07/09/17 17:12 Dose: 17 gm Senna/Docusate Sodium (Senokot S 50 Mg-8.6 Mg) 1 tab PO BID [facility] Last Admin: 07/09/17 17:13 Dose: 1 tab Physical Exam - Constitutional Appears: Non-toxic, No Acute Distress, Chronically Ill - Head Exam Head Exam: ATRAUMATIC, NORMOCEPHALIC - Eye Exam Eye Exam: EOMI, PERRL Pupil Exam: NORMAL ACCOMODATION, PERRL - ENT Exam ENT Exam: Mucous Membranes Moist, Normal External Ear Exam, TM's Normal Bilaterally - Neck Exam Neck exam: Positive for: Full Rom, Normal Inspection - Respiratory Exam Respiratory Exam: Clear to Auscultation Bilateral, NORMAL BREATHING PATTERN. absent: Rales, Rhonchi, Wheezes - Cardiovascular Exam Cardiovascular Exam: REGULAR RHYTHM, RRR, +S1, +S2 - GI/Abdominal Exam GI & Abdominal Exam: Normal Bowel Sounds, Soft. absent: Distended, Tenderness - Extremities Exam Extremities exam: Positive for: joint swelling, pedal edema (+3-4) - Neurological Exam Neurological exam: Alert, CN II-XII Intact, Oriented x3 - Psychiatric Exam Psychiatric exam: Normal Affect, Normal Mood - Skin Skin Exam: Dry, Intact, Normal Color, Warm Results - Vital Signs Recent Vital Signs: Last Vital Signs Temp 98.1 F 07/09/17 16:39 Pulse 108 H 07/09/17 18:00 Resp 20 07/09/17 16:39 BP 105/68 07/09/17 16:39 Pulse Ox 99 07/09/17 16:39 - Labs Result Diagrams: 07/09/17 06:48 07/09/17 13:16 Labs: Laboratory Results - last 24 hr 07/09/17 07/09/17 07/09/17 01:10 01:10 02:15 WBC RBC Hgb 11.3 L Hct 32.9 L MCV MCH MCHC RDW Plt Count MPV Gran % Lymph % (Auto) [place] % (Auto) Eos % (Auto) Baso % (Auto) Gran # Lymph # (Auto) [place] # (Auto) Eos # (Auto) Baso # (Auto) PT INR D-Dimer, Quantitative pCO2 pO2 HCO3 ABG pH ABG Total CO2 ABG O2 Saturation ABG Base Excess ABG Potassium Glucose Lactate FiO2 Sodium 134 Potassium 3.7 Chloride 95 L Carbon Dioxide 30 Anion Gap 13 BUN 17 Creatinine 0.9 Est GFR ( Amer) > 60 Est GFR (Non-Af Amer) > 60 POC Glucose (mg/dL) Random Glucose 154 H Calcium 8.1 L Phosphorus 3.4 Magnesium Total Bilirubin AST ALT Alkaline Phosphatase Troponin I 0.02 Total Protein Albumin Globulin Albumin/Globulin Ratio Amylase 73 Lipase 80 Procalcitonin Free T4 Total T3 TSH 3rd Generation Arterial Blood Potassium 07/09/17 07/09/17 07/09/17 02:15 02:15 02:15 WBC RBC Hgb Hct MCV MCH MCHC RDW Plt Count MPV Gran % Lymph % (Auto) [place] % (Auto) Eos % (Auto) Baso % (Auto) Gran # Lymph # (Auto) [place] # (Auto) Eos # (Auto) Baso # (Auto) PT INR D-Dimer, Quantitative 4615 H pCO2 pO2 HCO3 ABG pH ABG Total CO2 ABG O2 Saturation ABG Base Excess ABG Potassium Glucose Lactate FiO2 Sodium Potassium Chloride Carbon Dioxide Anion Gap BUN Creatinine Est GFR ( Amer) Est GFR (Non-Af Amer) POC Glucose (mg/dL) Random Glucose Calcium Phosphorus Magnesium Total Bilirubin AST ALT Alkaline Phosphatase Troponin I Total Protein Albumin Globulin Albumin/Globulin Ratio Amylase Lipase Procalcitonin 1.60 H Free T4 Total T3 TSH 3rd Generation 14.60 H Arterial Blood Potassium 07/09/17 07/09/17 07/09/17 02:40 06:48 06:48 WBC 4.7 D RBC 3.34 L Hgb 9.9 L Hct 29.3 L MCV 87.7 MCH 29.6 MCHC 33.8 RDW 15.4 H Plt Count 78 L MPV 9.3 Gran % 84.3 H Lymph % (Auto) 12.5 L [place] % (Auto) 3.0 Eos % (Auto) 0.2 L Baso % (Auto) 0.0 Gran # 3.97 Lymph # (Auto) 0.6 L [place] # (Auto) 0.1 Eos # (Auto) 0.0 Baso # (Auto) 0.00 PT 15.0 H INR 1.30 H D-Dimer, Quantitative pCO2 31 L pO2 77.0 L HCO3 27.1 ABG pH 7.55 H ABG Total CO2 28.1 H ABG O2 Saturation 98.4 H ABG Base Excess 5.2 H ABG Potassium 2.9 L Glucose 168 H Lactate 1.5 FiO2 28.0 Sodium 133.0 Potassium Chloride 95.0 L Carbon Dioxide Anion Gap BUN Creatinine Est GFR ( Amer) Est GFR (Non-Af Amer) POC Glucose (mg/dL) Random Glucose Calcium Phosphorus Magnesium Total Bilirubin AST ALT Alkaline Phosphatase Troponin I Total Protein Albumin Globulin Albumin/Globulin Ratio Amylase Lipase Procalcitonin Free T4 Total T3 TSH 3rd Generation Arterial Blood Potassium 2.9 L 07/09/17 07/09/17 07/09/17 06:48 07:06 11:13 WBC RBC Hgb Hct MCV MCH MCHC RDW Plt Count MPV Gran % Lymph % (Auto) [place] % (Auto) Eos % (Auto) Baso % (Auto) Gran # Lymph # (Auto) [place] # (Auto) Eos # (Auto) Baso # (Auto) PT INR D-Dimer, Quantitative pCO2 pO2 HCO3 ABG pH ABG Total CO2 ABG O2 Saturation ABG Base Excess ABG Potassium Glucose Lactate FiO2 Sodium 136 Potassium 2.8 L* D Chloride 96 L Carbon Dioxide 30 Anion Gap 13 BUN 18 Creatinine 0.8 Est GFR ( Amer) > 60 Est GFR (Non-Af Amer) > 60 POC Glucose (mg/dL) 180 H 141 H Random Glucose 173 H Calcium 7.9 L Phosphorus Magnesium Total Bilirubin 1.1 AST 30 ALT 41 Alkaline Phosphatase 236 H Troponin I Total Protein 5.2 L Albumin 2.4 L Globulin 2.8 Albumin/Globulin Ratio 0.9 L Amylase Lipase Procalcitonin Free T4 Total T3 TSH 3rd Generation Arterial Blood Potassium 07/09/17 07/09/17 07/09/17 13:16 13:16 16:36 WBC RBC Hgb Hct MCV MCH MCHC RDW Plt Count MPV Gran % Lymph % (Auto) [place] % (Auto) Eos % (Auto) Baso % (Auto) Gran # Lymph # (Auto) [place] # (Auto) Eos # (Auto) Baso # (Auto) PT INR D-Dimer, Quantitative pCO2 pO2 HCO3 ABG pH ABG Total CO2 ABG O2 Saturation ABG Base Excess ABG Potassium Glucose Lactate FiO2 Sodium 135 Potassium 4.1 Chloride 97 L Carbon Dioxide 30 Anion Gap 12 BUN 17 Creatinine 0.7 L Est GFR ( Amer) > 60 Est GFR (Non-Af Amer) > 60 POC Glucose (mg/dL) 134 H Random Glucose 154 H Calcium 8.0 L Phosphorus Magnesium 1.8 Total Bilirubin AST ALT Alkaline Phosphatase Troponin I Total Protein Albumin Globulin Albumin/Globulin Ratio Amylase Lipase Procalcitonin Free T4 1.00 Total T3 0.44 L TSH 3rd Generation Arterial Blood Potassium Assessment & Plan - Assessment and Plan (Free Text) Assessment: 72 yo Citizen Of [place] male with history of cholangiocarcinoma with liver metastasis being currently treated with Gemcitabin and [place]. He is currently being evaluated for Ytterium treatment. Awaiting IR evaluation. No leukocytosis. Supportive care. Procalcitonin of 1.6... this is of unclear significance given cholangiocarcinoma. Given that the procalcitonin was normal earlier in the month, the current procalcitonin level would support that an infective process is present. The patient is on Rocephin and Azithromycin. May need to expand antibiotic coverage further with Cefepime IV however, Zosyn has better anaerobic coverage. Fitzpatrick cultures pending. Trend procalcitonin levels. Case discussed with medical team. Supportive care. Thank you for allowing me to participate in the care of the patient, we will follow with you.
--- NOTE | 2017-07-09 20:43 | CON ---
DATE: 07/09/2017 CARDIOLOGY CONSULTATION REASON FOR CONSULTATION: Sinus tachycardia. HISTORY OF PRESENT ILLNESS: The patient is a 72-year-old male originally from [place] who has a history of bile duct carcinoma, receiving chemotherapy. The patient stated that he did receive a total of three courses and currently undergoing his fourth cycle of chemotherapy. The patient has a history of biliary stent. Presented to the emergency room accompanied by his son for generalized abdominal pain and constipation as well as sense of fever and chills. The patient also has poor appetite. There was no chest pain. The patient was noticed to be tachycardic in 140s overnight and there is no sinus tachycardia on the monitor. The patient denies any history of heart attack in the past. SOCIAL HISTORY: The patient is a former smoker. He lives with his family. MEDICATIONS: Aspirin 81 mg once a day, Colace 100 mg twice a day, Dilaudid 0.5 mg intravenously every 4 hours p.r.n., Lasix 20 mg intravenously twice a day, Lovenox 40 mg subcutaneous once a day, potassium chloride solution 40 mEq p.o., and Synthroid 100 mcg once a day. REVIEW OF SYSTEMS: The patient did report fever and chills. He denies any hematemesis or melena. PHYSICAL EXAMINATION: GENERAL: The patient is an elderly male, who does not appear to be in acute distress. VITAL SIGNS: Blood pressure 102/67, heart rate 108, temperature 98, respirations 21. HEENT: Pale conjunctivae. CHEST: Diminished breath sounds over the bases. HEART: S1 and S2 regular. ABDOMEN: Mild ascites. EXTREMITIES: A 1+ pitting edema. LABORATORY DATA: Today's hemoglobin and hematocrit 9.9 and 29.3, white count is 4.7, platelet count is 78,000. Today's SMA-7: Sodium 136, potassium 2.8, chloride 96, CO2 of 30, glucose 173, BUN 18, creatinine 0.8. TSH level is 14.6. Amylase and lipase actually are within normal limits. Chest CT angio, no evidence of pulmonary embolus. Large right pleural effusion. Right middle lobe infiltrate and consolidation. Abdominal and pelvis CT scan, markedly increase in intraabdominal and pelvic ascites, increase in the right pleural effusion and compression atelectasis, stable tumor burden in the liver. Chest x-ray reveals elevated right hemidiaphragm with right lower lobe infiltrate and prominent bronchovascular markings. EKG revealed sinus rhythm at rate of 96. Low voltage QRS complex. Cannot rule out anterior infarct. ASSESSMENT: 1. Liver cancer and ascites. 2. Sinus tachycardia is physiologic, response to the patient's current clinical condition. 3. Improving leukopenia. 4. Hypokalemia. 5. Thrombocytopenia. 6. Right lower, middle lobe pneumonia and right pleural effusion. RECOMMENDATIONS: Continue current aspirin, Dilaudid, IV Lasix, prophylactic subcutaneous Lovenox, IV Rocephin and IV Zithromax, oral potassium replacement, obtain an echocardiogram. Yash Harrison MD
--- NOTE | 2017-07-09 23:45 | CARD ---
APPROVED REPORT EKG Measurement Heart [id number] <Conclusion> Sinus tachycardia Left axis deviation Low voltage QRS Cannot rule out Anterior infarct, age undetermined Abnormal ECG
--- NOTE | 2017-07-09 23:51 | CARD ---
APPROVED REPORT EKG Measurement Heart [id number] ID [id number] <Conclusion> Normal sinus rhythm Left axis deviation Low voltage QRS Cannot rule out Anterior infarct, age undetermined Abnormal ECG
[2017-07-10] MEDS ORDERED: Morphine 2 mg/2 mL syringe IVP STA (03:28)
--- NOTE | 2017-07-10 03:29 | CON ---
DATE: HISTORY OF PRESENT ILLNESS: I saw Mark as part of the Internal Medicine Service with Crys Chang. Presently, the patient is being offered palliative care, but I do not believe he has accepted it as of yet. The note that was written in my name was discussed and I agree. I personally examined the patient, discussed with the resident, and agreed with the history and physical. He is speaking in Welsh. The patient's pain is mostly resolved. I would suggest paracentesis, but I am not planning surgical intervention, nor do I think it is appropriate. We will follow peripherally. Please recall as necessary. Bakari Bright MD
[2017-07-10] MEDS ORDERED: Enoxaparin 80 mg Syringe SC SCH (04:00)
[2017-07-10 07:12] LABS: EOS # 0.1 (0.0-0.7); EOS % 1.3 % (1.5-5.0); GRAN # 5.52 (1.4-6.5); GRAN % 79.3 % (50.0-68.0); HEMOGLOBIN 9.8 g/dL (14.0-18.0); LYMPH % 14.7 % (22.0-35.0); MEAN CELL VOLUME 88.9 fl (80.0-105.0); MEAN CORPUSCULAR HEMOGLOBIN 29.5 pg (25.0-35.0); MEAN CORPUSCULAR HGB CONC 33.2 g/dl (31.0-37.0); MEAN PLATELET VOLUME 9.9 fl (7.0-11.0); MONO # 0.3 (0.1-0.6); MONO % 4.7 % (1.0-6.0); RBC 3.32 10^6/uL (3.5-6.1); RED CELL DISTRIBUTION WIDTH 15.5 % (11.5-14.5)
[2017-07-10 07:16] LABS: ALB/GLOB RATIO 0.9 (1.1-1.8); ALBUMIN 2.4 g/dL (3.0-4.8); ALT/SGPT 39 U/L (7-56); AST/SGOT 31 U/L (17-59); BLOOD UREA NITROGEN 18 mg/dL (7-21); CALCIUM 8.1 mg/dL (8.4-10.5); GFR AFRICAN-AMERICAN > 60; GFR NON-AFRICAN AMERICAN > 60
[2017-07-10 07:21] LABS: INR 1.06 (0.93-1.08); PROTHROMBIN TIME 12.2 SECONDS (9.4-12.5)
[2017-07-10] MEDS ORDERED: Enoxaparin 80 mg Syringe SC STA (07:25)
[2017-07-10] MEDS ORDERED: Morphine 2 mg/2 mL syringe IVP PRN (07:28)
--- NOTE | 2017-07-10 07:36 | CP.PCM.PN ---
<Nathaly Harkins - Last Filed: 07/10/17 07:33> Subjective - Date & Time of Evaluation Date of Evaluation: 07/10/17 Time of Evaluation: 06:30 - Subjective Subjective: GI Fellow PGY4 Progress Note Pt seen and evaluated at bedside, pt with alot of abdominal and lumbar pain overnight, per nursing required multiple doses of pain medication to feel comfortable. +BM x2 yesterday. Plan for paracentesis today. ROS: A 12pt ROS was negative except as above Objective - Vital Signs/Intake and Output Vital Signs (last 24 hours): Temp Pulse Resp BP Pulse Ox 98.2 F 92 H 18 106/70 100 07/10/17 00:00 07/10/17 06:00 07/10/17 00:00 07/10/17 00:00 07/10/17 00:00 Intake and Output: 07/10/17 07/10/17 06:59 18:59 Intake Total 420 Output Total 400 Balance 20 - Medications Medications: Current Medications Aspirin (Aspirin Chewable) 81 mg PO DAILY [facility] Last Admin: 07/09/17 17:11 Dose: Not Given Docusate Sodium (Colace) 100 mg PO BID PRN PRN Reason: Constipation Ceftriaxone Sodium (Rocephin 1 Gram Ivpb) 1 gm in 100 mls @ 100 mls/hr IVPB DAILY [facility] PRN Reason: Protocol Last Admin: 07/09/17 09:29 Dose: 100 mls/hr Azithromycin (Zithromax 500mg In Ns) 500 mg in 250 mls @ 167 mls/hr IVPB DAILY [facility] PRN Reason: Protocol Last Admin: 07/09/17 09:30 Dose: 167 mls/hr Lactated Ringer's (Lactated Ringer's) 1,000 mls @ 50 mls/hr IV .Q20H [facility] Last Admin: 07/09/17 22:08 Dose: Not Given Insulin Human Regular (Humulin R Low) 0 units SC ACHS [facility] PRN Reason: Protocol Last Admin: 07/09/17 22:06 Dose: Not Given Levothyroxine Sodium (Synthroid) 100 mcg PO DAILY [facility] Last Admin: 07/09/17 09:30 Dose: 100 mcg Morphine Sulfate (Morphine) 4 mg IVP Q3H PRN PRN Reason: Pain, severe (8-10) Polyethylene Glycol (Miralax) 17 gm PO BID [facility] Last Admin: 07/09/17 17:12 Dose: 17 gm Senna/Docusate Sodium (Senokot S 50 Mg-8.6 Mg) 1 tab PO BID [facility] Last Admin: 07/09/17 17:13 Dose: 1 tab - Labs Labs: 07/09/17 06:48 07/10/17 06:18 PT 12.2 SECONDS (9.4-12.5) 07/10/17 06:18 INR 1.06 (0.93-1.08) 07/10/17 06:18 APTT 27.0 Seconds (25.1-36.5) 07/08/17 17:35 - Constitutional Appears: Non-toxic, No Acute Distress, Cachectic, Chronically Ill - Head Exam Head Exam: ATRAUMATIC, NORMAL INSPECTION, NORMOCEPHALIC - Eye Exam Eye Exam: EOMI, Normal appearance, PERRL - ENT Exam ENT Exam: Mucous Membranes Dry - Neck Exam Neck Exam: Full ROM, Normal Inspection - Respiratory Exam Respiratory Exam: Decreased Breath Sounds, NORMAL BREATHING PATTERN - Cardiovascular Exam Cardiovascular Exam: REGULAR RHYTHM - GI/Abdominal Exam GI & Abdominal Exam: Distended, Soft, Tenderness, Normal Bowel Sounds. 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 Headley on Gemcitabin, HTN, hypothryoidism s/p thryoidectomy, DM2, CAD s/p stenting who presented to the ED for worsening abdominal pain and constipation. 1. Ascites 2. Cholangiocarcinoma with metastatic disease 3. Constipation 4. Right pleural effusion 5. HCAP 6. Anasarca 7. DVT Plan: -Continue supportive care with pain control and antiemetics -Ascites plan for paracentesis and fluid analysis to r/o SBP -Right pleural effusion recommend thoracentesis -HCAP, abx per primary team -Pt with percutantious biliary stent, LFTs wnl, no obstruction -Cholangiocarcinoma on chemotherapy per Oncology -Bowel regimen with miralax bid -Continue lasix, monitor BUN/Cr -Advance diet as tolerated -Lovenox for DVT -Further medical treatment per primary team -No plan for any GI intervention at this time -Will continue to follow closely <Dre Garcia - Last Filed: 07/10/17 08:37> Objective - Vital Signs/Intake and Output Vital Signs (last 24 hours): Temp Pulse Resp BP Pulse Ox 98.2 F 62 20 125/76 97 07/10/17 06:00 07/10/17 06:00 07/10/17 06:00 07/10/17 06:00 07/10/17 06:00 Intake and Output: 07/10/17 07/10/17 06:59 18:59 Intake Total 420 Output Total 400 Balance 20 - Medications Medications: Current Medications Aspirin (Aspirin Chewable) 81 mg PO DAILY [facility] Last Admin: 07/09/17 17:11 Dose: Not Given Docusate Sodium (Colace) 100 mg PO BID PRN PRN Reason: Constipation Ceftriaxone Sodium (Rocephin 1 Gram Ivpb) 1 gm in 100 mls @ 100 mls/hr IVPB DAILY [facility] PRN Reason: Protocol Last Admin: 07/09/17 09:29 Dose: 100 mls/hr Azithromycin (Zithromax 500mg In Ns) 500 mg in 250 mls @ 167 mls/hr IVPB DAILY [facility] PRN Reason: Protocol Last Admin: 07/09/17 09:30 Dose: 167 mls/hr Lactated Ringer's (Lactated Ringer's) 1,000 mls @ 50 mls/hr IV .Q20H [facility] Last Admin: 07/09/17 22:08 Dose: Not Given Insulin Human Regular (Humulin R Low) 0 units SC ACHS [facility] PRN Reason: Protocol Last Admin: 07/10/17 07:42 Dose: Not Given Levothyroxine Sodium (Synthroid) 100 mcg PO DAILY [facility] Last Admin: 07/09/17 09:30 Dose: 100 mcg Morphine Sulfate (Morphine) 4 mg IVP Q3H PRN PRN Reason: Pain, severe (8-10) Polyethylene Glycol (Miralax) 17 gm PO BID [facility] Last Admin: 07/09/17 17:12 Dose: 17 gm Senna/Docusate Sodium (Senokot S 50 Mg-8.6 Mg) 1 tab PO BID [facility] Last Admin: 07/09/17 17:13 Dose: 1 tab - Labs Labs: 07/10/17 06:18 07/10/17 06:18 PT 12.2 SECONDS (9.4-12.5) 07/10/17 06:18 INR 1.06 (0.93-1.08) 07/10/17 06:18 APTT 27.0 Seconds (25.1-36.5) 07/08/17 17:35 Attending/Attestation - Attestation I have personally seen and examined this patient.: Yes I have fully participated in the care of the patient.: Yes I have reviewed all pertinent clinical information, including history, physical exam and plan: Yes Notes (Text): 07/10/17 08:36 72 year old male with h/o hilar cholangiocarcinoma s/p PTC c/b perihepatic fluid collection s/p drainage, s/p I/E drain admitted with ascites, pleural effusion, now found to have DVT. Recommend thoracentesis/paracentesis. AC for DVT. Supportive care with pain control.
[2017-07-10] MEDS: Insulin Reg-LOW-Coverage SC SCH ×4 (07:42→21:36)
--- NOTE | 2017-07-10 09:09 | CP.PCM.PN ---
Subjective - Date & Time of Evaluation Date of Evaluation: 07/10/17 Time of Evaluation: 07:00 - Subjective Subjective: PGY-1 surgery progress note for Dr. Bright Patient seen and examined. Patient denies any abdominal pain at this time but complains of mild dyspnea intermittently. Patient did not get the paracentesis done yesterday. Denies any BMs despite receiving enemas yesterday. Objective - Vital Signs/Intake and Output Vital Signs (last 24 hours): Temp Pulse Resp BP Pulse Ox 98.2 F 62 20 125/76 97 07/10/17 06:00 07/10/17 06:00 07/10/17 06:00 07/10/17 06:00 07/10/17 06:00 Intake and Output: 07/10/17 07/10/17 06:59 18:59 Intake Total 420 Output Total 400 Balance 20 - Medications Medications: Current Medications Aspirin (Aspirin Chewable) 81 mg PO DAILY [facility] Last Admin: 07/09/17 17:11 Dose: Not Given Docusate Sodium (Colace) 100 mg PO BID PRN PRN Reason: Constipation Ceftriaxone Sodium (Rocephin 1 Gram Ivpb) 1 gm in 100 mls @ 100 mls/hr IVPB DAILY [facility] PRN Reason: Protocol Last Admin: 07/09/17 09:29 Dose: 100 mls/hr Azithromycin (Zithromax 500mg In Ns) 500 mg in 250 mls @ 167 mls/hr IVPB DAILY [facility] PRN Reason: Protocol Last Admin: 07/09/17 09:30 Dose: 167 mls/hr Lactated Ringer's (Lactated Ringer's) 1,000 mls @ 50 mls/hr IV .Q20H [facility] Last Admin: 07/09/17 22:08 Dose: Not Given Insulin Human Regular (Humulin R Low) 0 units SC ACHS [facility] PRN Reason: Protocol Last Admin: 07/10/17 07:42 Dose: Not Given Levothyroxine Sodium (Synthroid) 100 mcg PO DAILY [facility] Last Admin: 07/09/17 09:30 Dose: 100 mcg Morphine Sulfate (Morphine) 4 mg IVP Q3H PRN PRN Reason: Pain, severe (8-10) Last Admin: 07/10/17 08:41 Dose: 4 mg Polyethylene Glycol (Miralax) 17 gm PO BID [facility] Last Admin: 07/09/17 17:12 Dose: 17 gm Senna/Docusate Sodium (Senokot S 50 Mg-8.6 Mg) 1 tab PO BID [facility] Last Admin: 07/09/17 17:13 Dose: 1 tab - Labs Labs: 07/10/17 06:18 07/10/17 06:18 PT 12.2 SECONDS (9.4-12.5) 07/10/17 06:18 INR 1.06 (0.93-1.08) 07/10/17 06:18 APTT 27.0 Seconds (25.1-36.5) 07/08/17 17:35 - Constitutional Appears: No Acute Distress - Head Exam Head Exam: ATRAUMATIC, NORMOCEPHALIC - Eye Exam Eye Exam: EOMI, Normal appearance - ENT Exam ENT Exam: Mucous Membranes Moist - Respiratory Exam Respiratory Exam: NORMAL BREATHING PATTERN. absent: Respiratory Distress - Cardiovascular Exam Cardiovascular Exam: +S1, +S2 - GI/Abdominal Exam GI & Abdominal Exam: Distended, Soft. absent: Guarding, Tenderness Additional comments: biliary drain in place - Extremities Exam Extremities Exam: absent: Pedal Edema - Neurological Exam Neurological Exam: Alert, Awake - Psychiatric Exam Psychiatric exam: Normal Affect, Normal Mood - Skin Skin Exam: Dry, Warm Assessment and Plan - Assessment and Plan (Free Text) Assessment: This is a 72 year old male with cholangiocarcinoma metastasized to the liver, worsening ascites, worsening right pleural effusion, constipation Plan: Awaiting paracentesis with fluid analysis/culture for Spontaneous bacterial peritonitis and possible thoracentesis for right pleural effusion Continue Aggressive bowel regimen Encourage ambulation with PT when stable incentive spirometer No surgical intervention indicated at this time. Please reconsult as needed Further recs per Dr. Deangelo Hickey PGY-1
[2017-07-10] MEDS: POLYETHYLENE GLYCOL 3350 17 GM/Dose PACKET PO SCH ×2 (09:13→17:55)
[2017-07-10] MEDS: Azithromycin 500MG/NS 250ml 500 MG/250 ML BAG IVPB SCH (09:14)
[2017-07-10] MEDS: Levothyroxine 100 MCG TAB PO SCH (09:14)
[2017-07-10] MEDS: cefTRIAXone 1 gm 1 GM/100 ML BAG IVPB SCH (09:14)
[2017-07-10] MEDS: Docusate-Senna 50 mg-8.6 mg Tab PO SCH ×2 (09:14→17:56)
[2017-07-10] MEDS ORDERED: Metoprolol 1 mg/ml Inj IVP PRN (11:06)
[2017-07-10] MEDS ORDERED: Enoxaparin 60 mg Syringe SC SCH ×2 (11:15→19:25)
--- NOTE | 2017-07-10 12:15 | CP.PCM.PN ---
Subjective - Date & Time of Evaluation Date of Evaluation: 07/10/17 Time of Evaluation: 12:00 - Subjective Subjective: Alert, oriented. Complains of palpations, denies chest pain Objective - Vital Signs/Intake and Output Vital Signs (last 24 hours): Temp Pulse Resp BP Pulse Ox 98.2 F 62 20 125/76 97 07/10/17 06:00 07/10/17 06:00 07/10/17 06:00 07/10/17 06:00 07/10/17 06:00 Intake and Output: 07/10/17 07/10/17 06:59 18:59 Intake Total 420 Output Total 400 Balance 20 - Medications Medications: Current Medications Aspirin (Aspirin Chewable) 81 mg PO DAILY [facility] Last Admin: 07/09/17 17:11 Dose: Not Given Docusate Sodium (Colace) 100 mg PO BID PRN PRN Reason: Constipation Enoxaparin Sodium (Lovenox) 60 mg SC Q12H [facility] PRN Reason: Protocol Ceftriaxone Sodium (Rocephin 1 Gram Ivpb) 1 gm in 100 mls @ 100 mls/hr IVPB DAILY [facility] PRN Reason: Protocol Last Admin: 07/10/17 09:14 Dose: 100 mls/hr Azithromycin (Zithromax 500mg In Ns) 500 mg in 250 mls @ 167 mls/hr IVPB DAILY [facility] PRN Reason: Protocol Last Admin: 07/10/17 09:14 Dose: 167 mls/hr Insulin Human Regular (Humulin R Low) 0 units SC ACHS [facility] PRN Reason: Protocol Last Admin: 07/10/17 07:42 Dose: Not Given Levothyroxine Sodium (Synthroid) 100 mcg PO DAILY [facility] Last Admin: 07/10/17 09:14 Dose: 100 mcg Metoprolol Tartrate (Lopressor) 5 mg IVP Q6 PRN PRN Reason: Heart rate Morphine Sulfate (Morphine) 4 mg IVP Q3H PRN PRN Reason: Pain, severe (8-10) Polyethylene Glycol (Miralax) 17 gm PO BID [facility] Last Admin: 07/10/17 09:13 Dose: 17 gm Senna/Docusate Sodium (Senokot S 50 Mg-8.6 Mg) 1 tab PO BID [facility] Last Admin: 07/10/17 09:14 Dose: 1 tab - Labs Labs: 07/10/17 06:18 07/10/17 06:18 PT 12.2 SECONDS (9.4-12.5) 07/10/17 06:18 INR 1.06 (0.93-1.08) 07/10/17 06:18 APTT 27.0 Seconds (25.1-36.5) 07/08/17 17:35 - Constitutional Appears: Chronically Ill - Eye Exam Eye Exam: Normal appearance, PERRL - ENT Exam ENT Exam: Mucous Membranes Moist, Normal Oropharynx - Neck Exam Neck Exam: Normal Inspection - Respiratory Exam Respiratory Exam: Decreased Breath Sounds, NORMAL BREATHING PATTERN - Cardiovascular Exam Cardiovascular Exam: Tachycardia, +S1, +S2 - GI/Abdominal Exam GI & Abdominal Exam: Distended, Firm, Normal Bowel Sounds - Extremities Exam Additional comments: 2+ bilateral lower extremity edema - Back Exam Back Exam: NORMAL INSPECTION - Neurological Exam Neurological Exam: Alert, Oriented x3 - Skin Skin Exam: Dry, Pallor Assessment and Plan - Assessment and Plan (Free Text) Assessment: 72 year old male with history of metastatic cholangiocarcinoma, billiary stent, DM who is admitted with bilateral femoral DVT's, ascites, abdominal pain and tachycardia Venu HERNANDEZ Dr Roberge and I conversed with patient in [place]ian with interpreting device. He ias alert and oriented. He complains of palpitations, denies chest pain or shortness of breath. His abdomen is distended. He is asking when he will have procedure to remove fluid from his belly. Explained that it would be necessary to get his heart rate stabilized before doing procedure. Advance care planning discussion ensued. Benefits and burdens of CPR/ intubation explained. Ramification of CPr/intubation in patients with medical problems such as his were also explained. Questions answered. Patient is hesitant to make decision. He wants to speak with his son, Lewis before doing so. The patient named his son Lewis as baron care surrogate. Time spent with patient in goals of care and advance care planning, 30 minutes Plan: Goals of care and advance care planning
--- NOTE | 2017-07-10 13:22 | PN ---
DATE: 07/10/2017 FOLLOWUP SUBJECTIVE: The patient denies any chest pain. He is currently in SVT. PHYSICAL EXAMINATION: VITAL SIGNS: Blood pressure 125/76; heart rate earlier 62, currently 134; temperature 98.2; respirations 20. HEENT: Pale conjunctivae. CHEST: Diminished breath sounds over the bases. HEART: S1 and S2 regular. EXTREMITIES: 2+ pitting edema. LABORATORY DATA: Hemoglobin and hematocrit 9.8 and 29.5, white count 7, platelet count 104,000. Today's SMA-7 is within normal limit. Calcium is 8.1. Venous Doppler of the lower extremity reports focal localized bilateral DVT at the common femoral vein bifurcation. Echocardiogram study revealed normal left ventricular size, wall thickness, ejection fraction with mild septal hypokinesis and [id number] pulmonary hypertension. 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 ASSESSMENT: 1. Liver carcinoma. 2. Bilateral deep venous thrombosis, rule out pulmonary embolism. 3. [id number] pulmonary hypertension. 4. Anemia. RECOMMENDATIONS: Start therapeutic subcutaneous Lovenox. Obtain CT angio of the chest to rule out pulmonary embolism and consider an IVC filter placement. Yash Harrison MD
--- NOTE | 2017-07-10 13:45 | CP.PCM.CON ---
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 ICU was consulted due to pleural effusion and abdominal ascites (suspected to be 2/2 malignancy but not yet tapped for assessment). After admission, he underwent a CTA chest that was negative for PE, but was just found to have bilateral DVT on LE duplex. Of concern to primary team, patient was intermittently hypotensive overnight to 90's systolic, with intermittent tachycardia up to 130s. Patient seen and examined at bedside on floors. Prior to exam, he was speaking (via [place] humanities and languages professor Wm Givens #[id number]) with Palliative service and Case Management regarding goals of care and code status. Currently, he wishes to remain full code, pending additional discussions with his son, whom he lives with. Denies current shortness of breath. Reports home shortness of breath as difficulty with taking full breaths, but denies shortness of breath at rest or pain with respiration. Does note worsening abdominal swelling, and constipation, but denies current abdominal pain. Has bilateral LE edema, but he reports chronic LE swelling, and denies current LE pain at rest or with ambulation. Denies emesis, choking, sensation of airway closing, or hemoptysis. All other ROS in 12-system review negative. PMH: as above PSH: prostatectomy, thryoidectomy, percutaneous biliary stent, coronary artery stenting Fam Hx: Denies fam hx of cancer, pulmonary or cardiac disease Soc Hx: Lives with son, former smoker (unable to quantify average amount smoked previously, quit > 25 yr ago), denies alcohol, illicit drug use PMD: None Heme-onc: [place] Review of Systems - Review of Systems All systems: reviewed and no additional remarkable complaints except (as per HPI ) Past Patient History - Infectious Disease Hx of Infectious Diseases: None - Past Medical History & Family History Past Medical History?: Yes Past Family History: Reviewed and not pertinent - Past Social History Smoking Status: Former Smoker (quit in 2002, smoked for) Alcohol: None Drugs: Denies - CARDIAC Hx Cardiac Disorders: Yes Hx Hypertension: Yes - PULMONARY Hx Respiratory Disorders: No - NEUROLOGICAL Hx Neurological Disorder: No - HEENT Hx HEENT Problems: Yes - RENAL Hx Chronic Kidney Disease: No - ENDOCRINE/METABOLIC Hx Diabetes Mellitus Type 2: Yes - HEMATOLOGICAL/ONCOLOGICAL Hx Cancer: Yes Hx Chemotherapy: Yes - INTEGUMENTARY Hx Dermatological Problems: No - MUSCULOSKELETAL/RHEUMATOLOGICAL Hx Musculoskeletal Disorders: Yes Hx Back Pain: Yes Hx Falls: No - GASTROINTESTINAL Other/Comment: Biliary Drain placed one month ago 05/2017Liver cancer- Chemotherapy - GENITOURINARY/GYNECOLOGICAL Hx Prostate Problems: Yes - PSYCHIATRIC Hx Psychophysiologic Disorder: No Hx Substance Use: No - SURGICAL HISTORY Hx Cardiac Catheterization: Yes Hx Coronary Stent: Yes Hx Thyroidectomy: Yes Other/Comment: Biliary Drain placed 05/2017 - ANESTHESIA Hx Anesthesia: Yes Hx Anesthesia Reactions: Yes Hx Malignant Hyperthermia: No Meds Allergies/Adverse Reactions: Allergies Allergy/AdvReac Type Severity Reaction Status Date / Time No Known Allergies Allergy Verified 06/21/17 00:56 - Medications Medications: Current Medications Aspirin (Aspirin Chewable) 81 mg PO DAILY [facility] Last Admin: 07/09/17 17:11 Dose: Not Given Docusate Sodium (Colace) 100 mg PO BID PRN PRN Reason: Constipation Enoxaparin Sodium (Lovenox) 60 mg SC Q12H [facility] PRN Reason: Protocol Ceftriaxone Sodium (Rocephin 1 Gram Ivpb) 1 gm in 100 mls @ 100 mls/hr IVPB DAILY [facility] PRN Reason: Protocol Last Admin: 07/10/17 09:14 Dose: 100 mls/hr Azithromycin (Zithromax 500mg In Ns) 500 mg in 250 mls @ 167 mls/hr IVPB DAILY [facility] PRN Reason: Protocol Last Admin: 07/10/17 09:14 Dose: 167 mls/hr Insulin Human Regular (Humulin R Low) 0 units SC ACHS [facility] PRN Reason: Protocol Last Admin: 07/10/17 12:04 Dose: Not Given Levothyroxine Sodium (Synthroid) 100 mcg PO DAILY [facility] Last Admin: 07/10/17 09:14 Dose: 100 mcg Metoprolol Tartrate (Lopressor) 5 mg IVP Q6 PRN PRN Reason: Heart rate Morphine Sulfate (Morphine) 4 mg IVP Q3H PRN PRN Reason: Pain, severe (8-10) Polyethylene Glycol (Miralax) 17 gm PO BID [facility] Last Admin: 07/10/17 09:13 Dose: 17 gm Senna/Docusate Sodium (Senokot S 50 Mg-8.6 Mg) 1 tab PO BID [facility] Last Admin: 07/10/17 09:14 Dose: 1 tab Physical Exam - Constitutional Appears: Non-toxic, No Acute Distress - Head Exam Head Exam: ATRAUMATIC, NORMAL INSPECTION, NORMOCEPHALIC - Eye Exam Eye Exam: EOMI, Normal appearance. absent: Conjunctival injection, Scleral icterus Pupil Exam: absent: Fixed, Irregular - ENT Exam ENT Exam: Mucous Membranes Moist - Neck Exam Neck exam: Positive for: Normal Inspection Additional comments: no JVD - Respiratory Exam Additional comments: -Normal breathing pattern, not grossly tachypnic, able to take slow deep breaths appropriately on command -Shifting dullness to percussion along right lateral chest wall, gravity dependant, does not cross midline; normal left sided percussion -Decreased breath sounds along right base, most prominent on posterior and then lateral aspects of chest, more prominent at base when sitting upright -Clear to auscultation on left side in all dueñas auscultated -no kemar cyanosis of extremities or lips appreciated - Cardiovascular Exam Cardiovascular Exam: REGULAR RHYTHM, RRR, +S1, +S2. absent: Bradycardia, Tachycardia, Irregular Rhythm, JVD, +S4 - GI/Abdominal Exam Additional comments: Abdomen distended but not rigid, soft anteriorly, more firm along bilateral flanks Shifting dullness with position changes, gravity dependant No palpable splenomegaly - Extremities Exam Additional comments: -grossly edematous bilateral LE, +3 pitting from Feet to mid-shins, +2 pitting from mid-shins to patellar region, not grossly edematous above knees -no tenderness to palpation at any section of bilateral LE -+2 radials bilaterally, +1 popliteals bilaterally, unable to palpate b/l dorsalis pedis or posterior tibials through LE edema -no gross erythema or appreciable temperature abnormalities on exam, no gross asymmetry appreciated - Neurological Exam Additional comments: awake and alert, oriented to self/location/year, follows all commands appropriately, moving all extremities spontaneously and freely 4/5 strength in all extremities, 5/5 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 - Psychiatric Exam Additional comments: appropriate mood and affect, not overly anxious but confused/concerned regarding his diagnosis and long-term prognosis - Skin Skin Exam: Dry, Intact, Normal Color, Warm Results - Vital Signs Recent Vital Signs: Last Vital Signs Temp 98.2 F 07/10/17 06:00 Pulse 62 07/10/17 06:00 Resp 20 07/10/17 06:00 BP 125/76 07/10/17 06:00 Pulse Ox 97 07/10/17 06:00 - Labs Result Diagrams: 07/10/17 06:18 07/10/17 06:18 Labs: Laboratory Results - last 24 hr 07/09/17 07/09/17 07/09/17 02:15 13:16 13:16 WBC RBC Hgb Hct MCV MCH MCHC RDW Plt Count MPV Gran % Lymph % (Auto) Real % (Auto) Eos % (Auto) Baso % (Auto) Gran # Lymph # (Auto) Real # (Auto) Eos # (Auto) Baso # (Auto) PT INR Sodium 135 Potassium 4.1 Chloride 97 L Carbon Dioxide 30 Anion Gap 12 BUN 17 Creatinine 0.7 L Est GFR ( Amer) > 60 Est GFR (Non-Af Amer) > 60 POC Glucose (mg/dL) Random Glucose 154 H Calcium 8.0 L Phosphorus Magnesium 1.8 Total Bilirubin AST ALT Alkaline Phosphatase Total Protein Albumin Globulin Albumin/Globulin Ratio Procalcitonin 1.60 H Free T4 1.00 Total T3 0.44 L 07/09/17 07/09/17 07/10/17 16:36 21:35 06:18 WBC 7.0 D RBC 3.32 L Hgb 9.8 L Hct 29.5 L MCV 88.9 MCH 29.5 MCHC 33.2 RDW 15.5 H Plt Count 104 L MPV 9.9 Gran % 79.3 H Lymph % (Auto) 14.7 L Real % (Auto) 4.7 Eos % (Auto) 1.3 L Baso % (Auto) 0.0 Gran # 5.52 Lymph # (Auto) 1.0 L Real # (Auto) 0.3 Eos # (Auto) 0.1 Baso # (Auto) 0.00 PT INR Sodium Potassium Chloride Carbon Dioxide Anion Gap BUN Creatinine Est GFR ( Amer) Est GFR (Non-Af Amer) POC Glucose (mg/dL) 134 H 126 H Random Glucose Calcium Phosphorus Magnesium Total Bilirubin AST ALT Alkaline Phosphatase Total Protein Albumin Globulin Albumin/Globulin Ratio Procalcitonin Free T4 Total T3 07/10/17 07/10/17 07/10/17 06:18 06:18 07:04 WBC RBC Hgb Hct MCV MCH MCHC RDW Plt Count MPV Gran % Lymph % (Auto) Real % (Auto) Eos % (Auto) Baso % (Auto) Gran # Lymph # (Auto) Real # (Auto) Eos # (Auto) Baso # (Auto) PT 12.2 INR 1.06 Sodium 136 Potassium 3.7 Chloride 99 Carbon Dioxide 30 Anion Gap 12 BUN 18 Creatinine 0.8 Est GFR ( Amer) > 60 Est GFR (Non-Af Amer) > 60 POC Glucose (mg/dL) 110 Random Glucose 110 Calcium 8.1 L Phosphorus 2.6 Magnesium 1.9 Total Bilirubin 0.9 AST 31 ALT 39 Alkaline Phosphatase 216 H Total Protein 5.2 L Albumin 2.4 L Globulin 2.8 Albumin/Globulin Ratio 0.9 L Procalcitonin Free T4 Total T3 07/10/17 11:07 WBC RBC Hgb Hct MCV MCH MCHC RDW Plt Count MPV Gran % Lymph % (Auto) Real % (Auto) Eos % (Auto) Baso % (Auto) Gran # Lymph # (Auto) Real # (Auto) Eos # (Auto) Baso # (Auto) PT INR Sodium Potassium Chloride Carbon Dioxide Anion Gap BUN Creatinine Est GFR ( Amer) Est GFR (Non-Af Amer) POC Glucose (mg/dL) 107 Random Glucose Calcium Phosphorus Magnesium Total Bilirubin AST ALT Alkaline Phosphatase Total Protein Albumin Globulin Albumin/Globulin Ratio Procalcitonin Free T4 Total T3 Assessment & Plan - Assessment and Plan (Free Text) Assessment: This is a 72 yo M with PMH of 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 ICU was consulted due to pleural effusion and abdominal ascites (suspected to be 2/2 malignancy but not yet tapped for assessment). Plan: At this time, given that the patient remains hemodynamically stable (BP 100-120/ 70's at time of exam), heart rate RRR (60's at time of exam), satting 95-100% on 2L NC O2, and given his poor prognosis from Stage IV cholangiocarcinoma with liver mets, patient is not a candidate for ICU placement. If his pleural effusion is confirmed to be a malignant effusion, and his prognosis is < 6 months to live, could consider pleurex catheter placement for symptom management /quality of life improvement. Additional management as per primary team. Thank you for this consult. Patient seen, reviewed, and discussed with attending, Dr. Lund. <Curt Lund - Last Filed: 07/10/17 16:29> Meds - Medications Medications: Current Medications Aspirin (Aspirin Chewable) 81 mg PO DAILY [facility] Last Admin: 07/09/17 17:11 Dose: Not Given Docusate Sodium (Colace) 100 mg PO BID PRN PRN Reason: Constipation Enoxaparin Sodium (Lovenox) 70 mg SC Q12H [facility] PRN Reason: Protocol Ceftriaxone Sodium (Rocephin 1 Gram Ivpb) 1 gm in 100 mls @ 100 mls/hr IVPB DAILY [facility] PRN Reason: Protocol Last Admin: 07/10/17 09:14 Dose: 100 mls/hr Azithromycin (Zithromax 500mg In Ns) 500 mg in 250 mls @ 167 mls/hr IVPB DAILY [facility] PRN Reason: Protocol Last Admin: 07/10/17 09:14 Dose: 167 mls/hr Insulin Human Regular (Humulin R Low) 0 units SC ACHS [facility] PRN Reason: Protocol Last Admin: 07/10/17 12:04 Dose: Not Given Levothyroxine Sodium (Synthroid) 100 mcg PO DAILY [facility] Last Admin: 07/10/17 09:14 Dose: 100 mcg Metoprolol Tartrate (Lopressor) 5 mg IVP Q6 PRN PRN Reason: Heart rate Morphine Sulfate (Morphine) 4 mg IVP Q3H PRN PRN Reason: Pain, severe (8-10) Polyethylene Glycol (Miralax) 17 gm PO BID [facility] Last Admin: 07/10/17 09:13 Dose: 17 gm Senna/Docusate Sodium (Senokot S 50 Mg-8.6 Mg) 1 tab PO BID [facility] Last Admin: 07/10/17 09:14 Dose: 1 tab Results - Vital Signs Recent Vital Signs: Last Vital Signs Temp 98.2 F 07/10/17 06:00 Pulse 98 H 07/10/17 14:00 Resp 20 07/10/17 06:00 BP 125/76 07/10/17 06:00 Pulse Ox 97 07/10/17 06:00 - Labs Result Diagrams: 07/10/17 06:18 07/10/17 06:18 Labs: Laboratory Results - last 24 hr 07/09/17 07/09/17 07/10/17 16:36 21:35 06:18 WBC 7.0 D RBC 3.32 L Hgb 9.8 L Hct 29.5 L MCV 88.9 MCH 29.5 MCHC 33.2 RDW 15.5 H Plt Count 104 L MPV 9.9 Gran % 79.3 H Lymph % (Auto) 14.7 L Real % (Auto) 4.7 Eos % (Auto) 1.3 L Baso % (Auto) 0.0 Gran # 5.52 Lymph # (Auto) 1.0 L Real # (Auto) 0.3 Eos # (Auto) 0.1 Baso # (Auto) 0.00 PT INR Sodium Potassium Chloride Carbon Dioxide Anion Gap BUN Creatinine Est GFR ( Amer) Est GFR (Non-Af Amer) POC Glucose (mg/dL) 134 H 126 H Random Glucose Calcium Phosphorus Magnesium Total Bilirubin AST ALT Alkaline Phosphatase Total Protein Albumin Globulin Albumin/Globulin Ratio 07/10/17 07/10/17 07/10/17 06:18 06:18 07:04 WBC RBC Hgb Hct MCV MCH MCHC RDW Plt Count MPV Gran % Lymph % (Auto) Real % (Auto) Eos % (Auto) Baso % (Auto) Gran # Lymph # (Auto) Real # (Auto) Eos # (Auto) Baso # (Auto) PT 12.2 INR 1.06 Sodium 136 Potassium 3.7 Chloride 99 Carbon Dioxide 30 Anion Gap 12 BUN 18 Creatinine 0.8 Est GFR ( Amer) > 60 Est GFR (Non-Af Amer) > 60 POC Glucose (mg/dL) 110 Random Glucose 110 Calcium 8.1 L Phosphorus 2.6 Magnesium 1.9 Total Bilirubin 0.9 AST 31 ALT 39 Alkaline Phosphatase 216 H Total Protein 5.2 L Albumin 2.4 L Globulin 2.8 Albumin/Globulin Ratio 0.9 L 07/10/17 11:07 WBC RBC Hgb Hct MCV MCH MCHC RDW Plt Count MPV Gran % Lymph % (Auto) Real % (Auto) Eos % (Auto) Baso % (Auto) Gran # Lymph # (Auto) Real # (Auto) Eos # (Auto) Baso # (Auto) PT INR Sodium Potassium Chloride Carbon Dioxide Anion Gap BUN Creatinine Est GFR ( Amer) Est GFR (Non-Af Amer) POC Glucose (mg/dL) 107 Random Glucose Calcium Phosphorus Magnesium Total Bilirubin AST ALT Alkaline Phosphatase Total Protein Albumin Globulin Albumin/Globulin Ratio Attending/Attestation - Attestation I have personally seen and examined this patient.: Yes I have fully participated in the care of the patient.: Yes I have reviewed all pertinent clinical information: Yes Notes (Text): 07/10/17 16:22 72 yo male with stage 4 cholangiocarcinoma. Mets to liver. Ascites, pleural effusion. I would recommend to treat treatable conditions and consider focusing more on less invasive interventions. abx, fluid removal from pleural and peritoneal space may provide some symptomatic relief. Would consider end of life discussion with oncology service involved and based on evidence based prognostication data for stage 4 cholangiocarcinoma. Meanwhile, hemodynamically stable, respiratory waddell stable and comfortable, able to protect airways-->no need for MICU at present time. If clinical situation change, please call for icu re-eval ccm time 40 min
--- NOTE | 2017-07-10 15:30 | CP.PCM.PN ---
Subjective - Date & Time of Evaluation Date of Evaluation: 07/10/17 Time of Evaluation: 08:15 - Subjective Subjective: Heme Onc Progress Note for Dr Headley Patient was seen and examined at bedside. Patient states his abdominal pain has improved. He has persistent complaints of lower extremity swelling. He states his abdomen is less distended today. Patient denied fever, chills, shortness of breath, chest pains, abdominal pains, nausea, vomiting, diarrhea, dysuria. Objective - Vital Signs/Intake and Output Vital Signs (last 24 hours): Temp Pulse Resp BP Pulse Ox 98.2 F 62 20 125/76 97 07/10/17 06:00 07/10/17 06:00 07/10/17 06:00 07/10/17 06:00 07/10/17 06:00 Intake and Output: 07/10/17 07/10/17 06:59 18:59 Intake Total 420 0 Output Total 400 400 Balance 20 -400 - Medications Medications: Current Medications Aspirin (Aspirin Chewable) 81 mg PO DAILY [facility] Last Admin: 07/09/17 17:11 Dose: Not Given Docusate Sodium (Colace) 100 mg PO BID PRN PRN Reason: Constipation Enoxaparin Sodium (Lovenox) 70 mg SC Q12H [facility] PRN Reason: Protocol Ceftriaxone Sodium (Rocephin 1 Gram Ivpb) 1 gm in 100 mls @ 100 mls/hr IVPB DAILY [facility] PRN Reason: Protocol Last Admin: 07/10/17 09:14 Dose: 100 mls/hr Azithromycin (Zithromax 500mg In Ns) 500 mg in 250 mls @ 167 mls/hr IVPB DAILY [facility] PRN Reason: Protocol Last Admin: 07/10/17 09:14 Dose: 167 mls/hr Insulin Human Regular (Humulin R Low) 0 units SC ACHS [facility] PRN Reason: Protocol Last Admin: 07/10/17 12:04 Dose: Not Given Levothyroxine Sodium (Synthroid) 100 mcg PO DAILY [facility] Last Admin: 07/10/17 09:14 Dose: 100 mcg Metoprolol Tartrate (Lopressor) 5 mg IVP Q6 PRN PRN Reason: Heart rate Morphine Sulfate (Morphine) 4 mg IVP Q3H PRN PRN Reason: Pain, severe (8-10) Polyethylene Glycol (Miralax) 17 gm PO BID [facility] Last Admin: 07/10/17 09:13 Dose: 17 gm Senna/Docusate Sodium (Senokot S 50 Mg-8.6 Mg) 1 tab PO BID [facility] Last Admin: 07/10/17 09:14 Dose: 1 tab - Labs Labs: 07/10/17 06:18 07/10/17 06:18 PT 12.2 SECONDS (9.4-12.5) 07/10/17 06:18 INR 1.06 (0.93-1.08) 07/10/17 06:18 APTT 27.0 Seconds (25.1-36.5) 07/08/17 17:35 - Constitutional Appears: No Acute Distress, Chronically Ill - Head Exam Head Exam: ATRAUMATIC, NORMAL INSPECTION, NORMOCEPHALIC - Eye Exam Eye Exam: EOMI, Normal appearance, PERRL Pupil Exam: NORMAL ACCOMODATION, PERRL - ENT Exam ENT Exam: Mucous Membranes Moist, Normal Exam - Respiratory Exam Respiratory Exam: Decreased Breath Sounds, NORMAL BREATHING PATTERN - Cardiovascular Exam Cardiovascular Exam: Tachycardia, +S1, +S2. absent: Murmur - GI/Abdominal Exam GI & Abdominal Exam: Distended, Soft, Normal Bowel Sounds. absent: Tenderness - Extremities Exam Extremities Exam: Pedal Edema (+4) - Neurological Exam Neurological Exam: Alert, Awake, CN II-XII Intact, Oriented x3 - Psychiatric Exam Psychiatric exam: Normal Affect, Normal Mood - Skin Skin Exam: Dry, Intact, Normal Color, Warm Assessment and Plan - Assessment and Plan (Free Text) Assessment: 72 M with a PMHx of cholangiocarcinoma with metastasis to the liver s/p percutaneous biliary stent, currently on chemotherapy of tolowa dee-ni' and Gemcitabin , pending ytterium evaluation admitted with progressively worsening abdominal pain constipation and distention. Pt found to have large ascites. IR consulted for paracentesis/thoracentesis fu cytology of fluid analysis, On empiric abx for SBP. Patient on diuretics at home however questionable compliance. Hold lasix on account of electrolyte imbalance. Supplement potassium for hypokalemia. Pt found to have b/l DVT, on therapeutic lovenox. CTA negative for PE. Will hold paracentesis on account of improved symptoms and tachycardia and lovenox admin in AM. Will adjust pain management from morphine 2mg q3h to 4mg Q3. Aggressive bowel regimen. PT/OT,OOB
--- NOTE | 2017-07-10 16:06 | CP.PCM.PN ---
<Roma Barker - Last Filed: 07/10/17 16:06> Subjective - Date & Time of Evaluation Date of Evaluation: 07/10/17 Time of Evaluation: 10:00 - Subjective Subjective: PGY-[address] Morales Got fleet enema, then soft BM, then abdominal pain much improves. Objective - Vital Signs/Intake and Output Vital Signs (last 24 hours): Temp Pulse Resp BP Pulse Ox 98.2 F 62 20 125/76 97 07/10/17 06:00 07/10/17 06:00 07/10/17 06:00 07/10/17 06:00 07/10/17 06:00 Intake and Output: 07/10/17 07/10/17 06:59 18:59 Intake Total 420 0 Output Total 400 400 Balance 20 -400 - Medications Medications: Current Medications Aspirin (Aspirin Chewable) 81 mg PO DAILY [facility] Last Admin: 07/09/17 17:11 Dose: Not Given Docusate Sodium (Colace) 100 mg PO BID PRN PRN Reason: Constipation Enoxaparin Sodium (Lovenox) 70 mg SC Q12H [facility] PRN Reason: Protocol Ceftriaxone Sodium (Rocephin 1 Gram Ivpb) 1 gm in 100 mls @ 100 mls/hr IVPB DAILY [facility] PRN Reason: Protocol Last Admin: 07/10/17 09:14 Dose: 100 mls/hr Azithromycin (Zithromax 500mg In Ns) 500 mg in 250 mls @ 167 mls/hr IVPB DAILY [facility] PRN Reason: Protocol Last Admin: 07/10/17 09:14 Dose: 167 mls/hr Insulin Human Regular (Humulin R Low) 0 units SC ACHS [facility] PRN Reason: Protocol Last Admin: 07/10/17 12:04 Dose: Not Given Levothyroxine Sodium (Synthroid) 100 mcg PO DAILY [facility] Last Admin: 07/10/17 09:14 Dose: 100 mcg Metoprolol Tartrate (Lopressor) 5 mg IVP Q6 PRN PRN Reason: Heart rate Morphine Sulfate (Morphine) 4 mg IVP Q3H PRN PRN Reason: Pain, severe (8-10) Polyethylene Glycol (Miralax) 17 gm PO BID [facility] Last Admin: 07/10/17 09:13 Dose: 17 gm Senna/Docusate Sodium (Senokot S 50 Mg-8.6 Mg) 1 tab PO BID [facility] Last Admin: 07/10/17 09:14 Dose: 1 tab - Labs Labs: 07/10/17 06:18 07/10/17 06:18 PT 12.2 SECONDS (9.4-12.5) 07/10/17 06:18 INR 1.06 (0.93-1.08) 07/10/17 06:18 APTT 27.0 Seconds (25.1-36.5) 07/08/17 17:35 - Constitutional Appears: No Acute Distress - Head Exam Head Exam: ATRAUMATIC, NORMAL INSPECTION, NORMOCEPHALIC - Eye Exam Eye Exam: EOMI, Normal appearance, PERRL. absent: Scleral icterus Pupil Exam: NORMAL ACCOMODATION - ENT Exam ENT Exam: Mucous Membranes Moist - Neck Exam Additional comments: supple - Respiratory Exam Respiratory Exam: Decreased Breath Sounds (Right lung bases > left lung bases), Clear to Ausculation Bilateral. absent: Rales, Rhonchi, Wheezes - Cardiovascular Exam Cardiovascular Exam: REGULAR RHYTHM, +S1, +S2 - GI/Abdominal Exam GI & Abdominal Exam: Distended, Soft, Tenderness (mild), Normal Bowel Sounds. absent: Guarding, Rigid - Neurological Exam Neurological Exam: Alert, Awake - Psychiatric Exam Psychiatric exam: Normal Affect, Normal Mood - Skin Skin Exam: Dry, Warm Assessment and Plan - Assessment and Plan (Free Text) Plan: Mr Lynch, 72M [place]ic speaking [place] with PMH CAD with stents, stage 4 cholangiocarcinoma s/p Cisplatin/Gemcitabin (2 rounds), s/p IR drain of subcapsular hematoma, currently with a percutanous biliary drain into duodenum, admitted for abdominal pain, distention, constipation w/ Right pleural effusion , compressive atelectasis, with stable tumor burden. He was found to have ascites and right-sided pleural effusion with consolidations on the right side. He had brief episodes of sinus tachycardia at 130s today (BP, RR stable), questionable due to compressive effect of large pleural effusion (RVSP 47, Right arterial pressure 10, EF 56). Abdominal pain/distension - worse last night, much improved after bowel movement Likely multifactorial: due to constipation, ascites, stage 4 cholangiocarcinoma - Morphine 4q3 PRN - Had BM today with fleet enema - Miralax BID, Senokot 50-8.6 BID Tachycardia 130s. Hypotension resolved. Questionable from compression due to pleural effusion R/O infectious cause - Lopressor 5 IV PRN HR > 130, allowable by BP - Blood culture - peripheral (07/07) - neg x 2d - Blood culture - Port (07/07) - neg x 2d - Blood culture (07/08) - neg x 1d - Urine culture (07/08) - neg - IR thoracentesis this afternoon. May also do paracentesis RLL, RML Pneumonia, CAP vs HAP - Procalc 1.60 (high) - Azithromycin and ceftriazone (day 2) - Per ID, if needed, upgrade to cefepime and zosyn. So far, no fever or leukocytosis, but patient is immunocompromised New DVT LE b/l @ femeral vein bifurcation - Lovenox 70 BID Tachycardia 130s. Hypotension resolved. Questionable SIRS due to pleural effusion R/O infectious cause - Lopressor 5 IV PRN HR > 130, allowable by BP - Blood culture - peripheral (07/07) - neg x 2d - Blood culture - Port (07/07) - neg x 2d - Blood culture (07/08) - neg x 1d - Urine culture (07/08) - neg - IR thoracentesis this afternoon. May also do paracentesis - Echocardiogram Pleural effusion - IR: therapeutic thoracentesis - Bipap PRN - Encourage incentive spirometer use Cholangiocarcinoma with liver mets, stage 4 - Currently being evaluated for liver Ytterium treatment - Cisplatin/Gemcitabin (2 rounds) - Granix 480 mcg SC daily x 6 days - morphine 4q3 Severe hypokalemia - resolved Hypothyroidism - Home synthroid DM - A1C, ISS, Accuchecks CAD - ASA (on hold for procedure); Lasix PRN GI/DVT ppx - therapeutic Lovenox; Protonix Dispo plan - Pallative care consult - PT - follow up with Dr. Caldwell, and Dr Murphy Barillas, Consumer Insight Manager, [facility] s[facility]d/w Dr. Morales <Gómez Morales - Last Filed: 07/10/17 16:57> Objective - Vital Signs/Intake and Output Vital Signs (last 24 hours): Temp Pulse Resp BP Pulse Ox 98.2 F 98 H 20 125/76 97 07/10/17 06:00 07/10/17 14:00 07/10/17 06:00 07/10/17 06:00 07/10/17 06:00 Intake and Output: 07/10/17 07/10/17 06:59 18:59 Intake Total 420 0 Output Total 400 400 Balance 20 -400 - Medications Medications: Current Medications Aspirin (Aspirin Chewable) 81 mg PO DAILY [facility] Last Admin: 07/09/17 17:11 Dose: Not Given Docusate Sodium (Colace) 100 mg PO BID PRN PRN Reason: Constipation Enoxaparin Sodium (Lovenox) 70 mg SC Q12H [facility] PRN Reason: Protocol Ceftriaxone Sodium (Rocephin 1 Gram Ivpb) 1 gm in 100 mls @ 100 mls/hr IVPB DAILY [facility] PRN Reason: Protocol Last Admin: 07/10/17 09:14 Dose: 100 mls/hr Azithromycin (Zithromax 500mg In Ns) 500 mg in 250 mls @ 167 mls/hr IVPB DAILY [facility] PRN Reason: Protocol Last Admin: 07/10/17 09:14 Dose: 167 mls/hr Insulin Human Regular (Humulin R Low) 0 units SC ACHS [facility] PRN Reason: Protocol Last Admin: 07/10/17 12:04 Dose: Not Given Levothyroxine Sodium (Synthroid) 100 mcg PO DAILY [facility] Last Admin: 07/10/17 09:14 Dose: 100 mcg Metoprolol Tartrate (Lopressor) 5 mg IVP Q6 PRN PRN Reason: Heart rate Morphine Sulfate (Morphine) 4 mg IVP Q3H PRN PRN Reason: Pain, severe (8-10) Polyethylene Glycol (Miralax) 17 gm PO BID [facility] Last Admin: 07/10/17 09:13 Dose: 17 gm Senna/Docusate Sodium (Senokot S 50 Mg-8.6 Mg) 1 tab PO BID [facility] Last Admin: 07/10/17 09:14 Dose: 1 tab - Labs Labs: 07/10/17 06:18 07/10/17 06:18 PT 12.2 SECONDS (9.4-12.5) 07/10/17 06:18 INR 1.06 (0.93-1.08) 07/10/17 06:18 APTT 27.0 Seconds (25.1-36.5) 07/08/17 17:35 Attending/Attestation - Attestation I have personally seen and examined this patient.: Yes I have fully participated in the care of the patient.: Yes I have reviewed all pertinent clinical information, including history, physical exam and plan: Yes Notes (Text): 07/10/17 16:53 attending note; Patient seen and examined with resident. Patient is a 72 year old male with past medical history of cholangiocarcinoma with liver mets, hypertension, diabetes, CAD,and intrahepatic ductal dilatation s/p biliary drain placement presented with abdominal pain. Found to have ascites and right-sided pleural effusion. patient also has consolidations on the right side. started on Rocephin and Zithromax. Patient is currently afebrile and nontoxic. ID evaluation appreciated. Patient has episodes of tachycardia. cardiology evaluation appreciated. Echocardiogrm with normal ejection fracion. Started on IV metoprolol. ICU evaluation appreciated. Case discussed with Dr. Garvin in detail. Constipation; resolved with enema. Continue MiraLAX. abdominal pain resolved. Tolerating liquid diet. pain management;. Currently on IV Morphine. Case discussed with IR for possible paracentesis/thoracentesis today. CAT scan reviewed with Dr. Duarte Guerra. Bilateral lower extremity DVT. Started on subcutaneous Lovenox. Patient recently had treatment with cisplatin and gemcitabine. prognosis is poor. Palliative care evaluation appreciated. Had a long conversation with patient's son in detail. Patient is full code for now. patient's son Would wait for Cytology results from paracentesis or thoracentesis. time spent over 1 over discussing with family and other constants on board.
[2017-07-10 17:40] LABS: BODY FLUID TYPE PERITONEAL/ASCITES
--- NOTE | 2017-07-10 17:42 | CP.PCM.PN ---
Subjective - Date & Time of Evaluation Date of Evaluation: 07/10/17 Time of Evaluation: 16:30 - Subjective Subjective: Infectious Disease Follow Up: July 10, 2017 72 czech speaking [place] male with a PMHx of cholangiocarcinoma with liver mets, hypertension, diabetes, CAD s/p stents, obstructive jaundice, and intrahepatic ducal dilatation s/p biliary drain placement, presents to the emergency department for 8 days of constipation, worsening abdominal distension and tenderness specifically on the left quadrants. Patient admitted to constipation upon admission for approximately a week however was able to have a small bm this morning. Poor PO intake for one day prior to admission. CT abdomen demonstrated increased ascites and abdominal distention, and right pleural effusion with underlying PNA. Patient was seen and examined at bedside. Patient stating now that his abdominal pain has improved. History of lower extremity swelling and tenderness. Patient denies fever, chills, shortness of breath, chest pains, abdominal pains, nausea, vomiting, diarrhea, dysuria. He is awaiting IR evaluation for paracentesis/thoracentesis. On Ceftriaxone and Azithromycin for antibiotic coverage. Objective - Vital Signs/Intake and Output Vital Signs (last 24 hours): Temp Pulse Resp BP Pulse Ox 98.2 F 98 H 20 125/76 97 07/10/17 06:00 07/10/17 14:00 07/10/17 06:00 07/10/17 06:00 07/10/17 06:00 Intake and Output: 07/10/17 07/10/17 06:59 18:59 Intake Total 420 0 Output Total 400 400 Balance 20 -400 - Medications Medications: Current Medications Aspirin (Aspirin Chewable) 81 mg PO DAILY [facility] Last Admin: 07/09/17 17:11 Dose: Not Given Docusate Sodium (Colace) 100 mg PO BID PRN PRN Reason: Constipation Enoxaparin Sodium (Lovenox) 70 mg SC Q12H [facility] PRN Reason: Protocol Ceftriaxone Sodium (Rocephin 1 Gram Ivpb) 1 gm in 100 mls @ 100 mls/hr IVPB DAILY [facility] PRN Reason: Protocol Last Admin: 07/10/17 09:14 Dose: 100 mls/hr Azithromycin (Zithromax 500mg In Ns) 500 mg in 250 mls @ 167 mls/hr IVPB DAILY [facility] PRN Reason: Protocol Last Admin: 06/01/18 09:14 Dose: 167 mls/hr Insulin Human Regular (Humulin R Low) 0 units SC ACHS [facility] PRN Reason: Protocol Last Admin: 07/10/17 12:04 Dose: Not Given Levothyroxine Sodium (Synthroid) 100 mcg PO DAILY [facility] Last Admin: 07/10/17 09:14 Dose: 100 mcg Metoprolol Tartrate (Lopressor) 5 mg IVP Q6 PRN PRN Reason: Heart rate Morphine Sulfate (Morphine) 4 mg IVP Q3H PRN PRN Reason: Pain, severe (8-10) Polyethylene Glycol (Miralax) 17 gm PO BID [facility] Last Admin: 07/10/17 09:13 Dose: 17 gm Senna/Docusate Sodium (Senokot S 50 Mg-8.6 Mg) 1 tab PO BID [facility] Last Admin: 07/10/17 09:14 Dose: 1 tab - Labs Labs: 07/10/17 06:18 07/10/17 06:18 PT 12.2 SECONDS (9.4-12.5) 07/10/17 06:18 INR 1.06 (0.93-1.08) 07/10/17 06:18 APTT 27.0 Seconds (25.1-36.5) 18 17:35 - Constitutional Appears: Non-toxic, No Acute Distress, Chronically Ill - Head Exam Head Exam: ATRAUMATIC, NORMOCEPHALIC - Eye Exam Eye Exam: EOMI, PERRL Pupil Exam: NORMAL ACCOMODATION, PERRL - ENT Exam ENT Exam: Mucous Membranes Moist, Normal External Ear Exam, TM's Normal Bilaterally - Neck Exam Neck Exam: Full ROM, Normal Inspection - Respiratory Exam Respiratory Exam: Clear to Ausculation Bilateral, NORMAL BREATHING PATTERN. absent: Rales, Rhonchi, Wheezes - Cardiovascular Exam Cardiovascular Exam: REGULAR RHYTHM, RRR, +S1, +S2 - GI/Abdominal Exam GI & Abdominal Exam: Distended, Soft, Normal Bowel Sounds. absent: Tenderness Additional comments: Ascites - Extremities Exam Extremities Exam: Joint Swelling (+3-4 edema), Pedal Edema - Neurological Exam Neurological Exam: Alert, Awake, CN II-XII Intact, Oriented x3 - Psychiatric Exam Psychiatric exam: Normal Affect, Normal Mood - Skin Skin Exam: Intact, Normal Color, Warm Assessment and Plan - Assessment and Plan (Free Text) Assessment: 72 yo [place] male with history of cholangiocarcinoma with liver metastasis being currently treated with Gemcitabin and [place]. He is currently being evaluated for Ytterium treatment. Awaiting IR evaluation. No leukocytosis. Supportive care. Procalcitonin of 1.6... this is of unclear significance given cholangiocarcinoma. Given that the procalcitonin was normal earlier in the month, the current procalcitonin level would support that an infective process may be present. Monitor procalcitonin levels. The patient is on Rocephin and Azithromycin. May need to expand antibiotic coverage further with Cefepime IV however, Zosyn has better anaerobic coverage. Fitzpatrick cultures pending. Trend procalcitonin levels. Case discussed with medical team. Supportive care. Thank you for allowing me to participate in the care of the patient, we will follow with you.
[2017-07-10 18:01] LABS: BF GROSS APPEARANCE CLOUDY (CLEAR)
[2017-07-10 18:02] LABS: BODY FLUID TOTAL COUNT 100 (0-0)
--- NOTE | 2017-07-10 18:38 | US ---
PROCEDURE: Ultrasound guided right thoracentesis. CLINICAL HISTORY: Cholangiocarcinoma. Large right pleural effusion with shortness of breath. Thoracentesis. PHYSICIAN(S): Duarte Guerra MD. TECHNIQUE: The relative risks and indications of the procedure were explained to the patient and his son and consent obtained. The patient was placed in a sitting position on the stretcher and sonography of the right chest performed. This revealed a large non loculated rightpleural effusion. A right posterolateral intercostal approach was selected and the area prepped and draped usual sterile fashion. 1% Xylocaine was used to anesthetize the skin and soft tissues. A 7 [place] thoracentesis catheter was trocared into the right pleural cavity and 2000 ccof slightly turbid yellow fluid aspirated. A cytology specimen was sent IMPRESSION: 1. Ultrasound guided right thoracentesis. 2000 cc of slightly turbid yellow fluid aspirated. A cytology specimen was sent
--- NOTE | 2017-07-10 18:39 | US ---
PROCEDURE: Ultrasound guided paracentesis. HISTORY: Cholangiocarcinoma. Enlarging ascites. Needs paracentesis. PHYSICIAN(S): Duarte Guerra MD. TECHNIQUE: The relative risks and indications for the procedure were explained to the patient and his son and informed written consent obtained. Sonography of the abdomen was performed in a supine position. This revealed a moderate amount of non-loculated ascites, greatest in the right lower quadrant. A puncture site was selected and the area was prepped and draped in the usual sterile fashion. 1% Xylocaine was used to anesthetize the skin and soft tissues. A 7 [place]riot paracentesis catheter was trocared into the right lower quadrantand 3000 cc of slightly turbid yellow fluid aspirated. The appropriate labs were sent. IMPRESSION: Ultrasound-guided paracentesis in the right lower quadrant. 3000 cc of slightly turbid yellow fluid were aspirated. The appropriate labs were sent.
--- NOTE | 2017-07-10 18:54 | CARD ---
APPROVED REPORT EKG Measurement Heart [id number] <Conclusion> Supraventricular tachycardia Low voltage QRS Left anterior fascicular block Inferior infarct, age undetermined Cannot rule out Anterior infarct, age undetermined Abnormal ECG
[2017-07-10] MEDS: Enoxaparin 80 mg Syringe SC SCH (20:34)
[2017-07-10] MEDS: Morphine 4 mg/ml ISec IVP PRN (20:35)
[2017-07-11] MEDS: Piperacillin/Tazobact 3.375 gm 100 ML IVPB SCH ×5 (00:44→23:34)
[2017-07-11] MEDS: Morphine 4 mg/ml ISec IVP PRN (05:51)
[2017-07-11 06:15] LABS: BASO # 0.02 K/mm3 (0.0-2.0); BASO % 0.5 % (0.0-3.0); EOS # 0.2 (0.0-0.7); EOS % 3.9 % (1.5-5.0); GRAN # 2.31 (1.4-6.5); GRAN % 60.5 % (50.0-68.0); HEMOGLOBIN 9.6 g/dL (14.0-18.0); LYMPH # 1.1 (1.2-3.4); LYMPH % 29.1 % (22.0-35.0); MEAN CELL VOLUME 88.7 fl (80.0-105.0); MEAN CORPUSCULAR HEMOGLOBIN 30.1 pg (25.0-35.0); MEAN CORPUSCULAR HGB CONC 33.9 g/dl (31.0-37.0); MONO # 0.2 (0.1-0.6); RBC 3.19 10^6/uL (3.5-6.1); RED CELL DISTRIBUTION WIDTH 15.4 % (11.5-14.5); WHITE BLOOD COUNT 3.8 10^3/ul (4.5-11.0)
[2017-07-11 06:36] LABS: ALB/GLOB RATIO 0.9 (1.1-1.8); ALBUMIN 2.2 g/dL (3.0-4.8); ALT/SGPT 40 U/L (7-56); AST/SGOT 27 U/L (17-59); BLOOD UREA NITROGEN 15 mg/dL (7-21); CALCIUM 7.7 mg/dL (8.4-10.5); GFR AFRICAN-AMERICAN > 60; GFR NON-AFRICAN AMERICAN > 60
[2017-07-11] MEDS: Insulin Reg-LOW-Coverage SC SCH ×4 (07:43→22:03)
[2017-07-11 08:14] LABS: INR 1.02 (0.93-1.08); PROTHROMBIN TIME 11.6 SECONDS (9.4-12.5)
--- NOTE | 2017-07-11 08:14 | CP.PCM.PN ---
<Rajesh Schrader - Last Filed: 07/11/17 13:19> Subjective - Date & Time of Evaluation Date of Evaluation: 07/11/17 Time of Evaluation: 07:00 - Subjective Subjective: PGY4 GI Follow-up Pt seen and examined bedside No complaints Minimal appetite as per RN +Bm yesterday Denies any abd pain, nausea, or vomiting ROS: 12 point ROS conducted, neg other than above Objective - Vital Signs/Intake and Output Vital Signs (last 24 hours): Temp Pulse Resp BP Pulse Ox 98.2 F 72 18 109/73 97 07/10/17 18:00 07/11/17 06:00 07/10/17 18:00 07/10/17 18:00 07/10/17 18:00 Intake and Output: 07/11/17 07/11/17 06:59 18:59 Output Total 450 Balance -450 - Medications Medications: Current Medications Aspirin (Aspirin Chewable) 81 mg PO DAILY [facility] Last Admin: 07/09/17 17:11 Dose: Not Given Docusate Sodium (Colace) 100 mg PO BID PRN PRN Reason: Constipation Enoxaparin Sodium (Lovenox) 70 mg SC Q12H [facility] PRN Reason: Protocol Last Admin: 07/10/17 20:34 Dose: 70 mg Azithromycin (Zithromax 500mg In Ns) 500 mg in 250 mls @ 167 mls/hr IVPB DAILY [facility] PRN Reason: Protocol Last Admin: 07/10/17 09:14 Dose: 167 mls/hr Piperacillin Sod/Tazobactam Sod (Zosyn 3.375 In Ns 100ml) 100 mls @ 200 mls/hr IVPB Q6 NINA PRN Reason: Protocol Last Admin: 07/11/17 05:41 Dose: 200 mls/hr Insulin Human Regular (Humulin R Low) 0 units SC ACHS NINA PRN Reason: Protocol Last Admin: 07/11/17 07:43 Dose: Not Given Levothyroxine Sodium (Synthroid) 100 mcg PO DAILY [facility] Last Admin: 07/10/17 09:14 Dose: 100 mcg Metoprolol Tartrate (Lopressor) 5 mg IVP Q6 PRN PRN Reason: Heart rate Morphine Sulfate (Morphine) 4 mg IVP Q3H PRN PRN Reason: Pain, severe (8-10) Last Admin: 07/11/17 05:51 Dose: 4 mg Polyethylene Glycol (Miralax) 17 gm PO BID [facility] Last Admin: 07/10/17 17:55 Dose: 17 gm Senna/Docusate Sodium (Senokot S 50 Mg-8.6 Mg) 1 tab PO BID [facility] Last Admin: 07/10/17 17:56 Dose: 1 tab - Labs Labs: 07/11/17 06:00 07/11/17 06:00 PT 12.2 SECONDS (9.4-12.5) 07/10/17 06:18 INR 1.06 (0.93-1.08) 07/10/17 06:18 APTT 27.0 Seconds (25.1-36.5) 07/08/17 17:35 - Constitutional Appears: Well, No Acute Distress - Head Exam Head Exam: ATRAUMATIC, NORMOCEPHALIC - Eye Exam Eye Exam: Normal appearance - ENT Exam ENT Exam: Mucous Membranes Moist, Normal Exam - Neck Exam Neck Exam: Normal Inspection - Respiratory Exam Respiratory Exam: Decreased Breath Sounds (right lung base). absent: Rales, Rhonchi, Wheezes, Respiratory Distress - GI/Abdominal Exam GI & Abdominal Exam: Soft, Normal Bowel Sounds. absent: Distended, Firm, Guarding, Rigid, Tenderness, Diminished Bowel Sounds, Organomegaly Additional comments: RUQ Percutaneous drain - Extremities Exam Extremities Exam: Pedal Edema. absent: Joint Swelling - Neurological Exam Neurological Exam: Alert, Awake, Oriented x3 - Psychiatric Exam Psychiatric exam: Normal Affect, Normal Mood - Skin Skin Exam: Dry, Intact, Normal Color, Warm Assessment and Plan - Assessment and Plan (Free Text) Assessment: This is a 72yM recent diagnosis of 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 Headley on Gemcitabin, HTN, hypothryoidism s/p thryoidectomy, DM2, CAD s/p stenting who presented to the ED for worsening abdominal pain and constipation. S/P abd paracentesis 3L and thoracentesis 2L; PMN>250 Presumed SBP, waiting on SAAG and culture Ascites Cholangiocarcinoma with metastatic disease Constipation Right pleural effusion HCAP Anasarca DVT Plan: -Continue supportive care with pain control and antiemetics -Presumed SBP based on fluid analysis, recommend continuing zosyn, may have to add Vancomycin for broader coverage; may need to consider removing percutaneous drain -awaiting final culture, gram stain initially revealed gram neg jose g -HCAP, abx per primary team -Cholangiocarcinoma on chemotherapy per Oncology -Bowel regimen with miralax bid -Continue lasix, monitor BUN/Cr -Advance diet as tolerated -Lovenox for DVT -Further medical treatment per primary team -No plan for any GI intervention at this time D/W Dr. Oreilly <Rahul Oreilly - Last Filed: 07/11/17 18:53> Objective - Vital Signs/Intake and Output Vital Signs (last 24 hours): Temp Pulse Resp BP Pulse Ox 98 F 99 H 16 115/80 98 07/11/17 12:00 07/11/17 14:00 07/11/17 12:00 07/11/17 12:00 07/11/17 08:18 Intake and Output: 07/11/17 07/11/17 06:59 18:59 Intake Total 1200 Output Total 450 225 Balance -450 975 - Medications Medications: Current Medications Aspirin (Ecotrin) 81 mg PO DAILY [facility] Last Admin: 07/11/17 18:18 Dose: 81 mg Diltiazem HCl (Cardizem) 30 mg PO BID [facility] Last Admin: 07/11/17 17:50 Dose: 30 mg Docusate Sodium (Colace) 100 mg PO BID PRN PRN Reason: Constipation Last Admin: 07/11/17 11:53 Dose: 100 mg Enoxaparin Sodium (Lovenox) 70 mg SC Q12H [facility] PRN Reason: Protocol Last Admin: 07/11/17 08:36 Dose: 70 mg Azithromycin (Zithromax 500mg In Ns) 500 mg in 250 mls @ 167 mls/hr IVPB DAILY [facility] PRN Reason: Protocol Last Admin: 07/11/17 11:55 Dose: 167 mls/hr Piperacillin Sod/Tazobactam Sod (Zosyn 3.375 In Ns 100ml) 100 mls @ 200 mls/hr IVPB Q6 NINA PRN Reason: Protocol Last Admin: 07/11/17 17:51 Dose: 200 mls/hr Insulin Human Regular (Humulin R Low) 0 units SC ACHS NINA PRN Reason: Protocol Last Admin: 07/11/17 16:37 Dose: Not Given Levothyroxine Sodium (Synthroid) 100 mcg PO DAILY [facility] Last Admin: 07/11/17 11:53 Dose: 100 mcg Metoprolol Tartrate (Lopressor) 5 mg IVP Q6 PRN PRN Reason: Heart rate Morphine Sulfate (Morphine) 4 mg IVP Q3H PRN PRN Reason: Pain, severe (8-10) Last Admin: 07/11/17 05:51 Dose: 4 mg Polyethylene Glycol (Miralax) 17 gm PO BID [facility] Last Admin: 07/11/17 17:51 Dose: 17 gm Senna/Docusate Sodium (Senokot S 50 Mg-8.6 Mg) 1 tab PO BID [facility] Last Admin: 07/11/17 17:51 Dose: 1 tab Warfarin Sodium (Coumadin) 5 mg PO 1800 NINA PRN Reason: Protocol - Labs Labs: 07/11/17 06:00 07/11/17 06:00 PT 11.6 SECONDS (9.4-12.5) 07/11/17 06:00 INR 1.02 (0.93-1.08) 07/11/17 06:00 APTT 27.0 Seconds (25.1-36.5) 07/08/17 17:35 Attending/Attestation - Attestation I have personally seen and examined this patient.: Yes I have fully participated in the care of the patient.: Yes I have reviewed all pertinent clinical information, including history, physical exam and plan: Yes Notes (Text): 07/11/17 18:51 Patient seen with GI fellow at bedside. This is a 72 year old male with h/o hilar cholangiocarcinoma s/p PTC c/b perihepatic fluid collection s/p drainage, s/p I/E drain admitted with ascites, pleural effusion, now found to have DVT. He is s/p thoracentesis/paracentesis. AC for DVT. Supportive care with pain control. Has a percutaneous biliary drain which may be nidus of infection. Ascitic fluid with SBP and cutures growing GNR. Antibiotics as per ID. No other GI work up required. Thank you for letting us participate in the care of your patient
[2017-07-11] MEDS: Enoxaparin 80 mg Syringe SC SCH ×2 (08:36→21:21)
--- NOTE | 2017-07-11 11:27 | RAD ---
HISTORY: Right thoracentesis COMPARISON: Comparison chest 07/08/2017 theNo prior. TECHNIQUE: Chest PA and lateral FINDINGS: No change right IJ MediPort with tip in the SVC LUNGS: Residual right-sided pleural effusion moderate-sized with suspected mild right basilar atelectasis and or. Small left-sided effusion with minimal left atelectasis. PLEURA: As above. No pneumothorax apparent. CARDIOVASCULAR: Normal. OSSEOUS STRUCTURES: No significant abnormalities. VISUALIZED UPPER ABDOMEN: Re- demonstrated is a percutaneous transhepatic biliary stent catheter again noted right upper abdomen. OTHER FINDINGS: None. IMPRESSION: Residual right-sided pleural effusion moderate-sized with mild right basilar atelectasis the. Small left-sided effusion with minimal left atelectasis.
[2017-07-11] MEDS: Docusate-Senna 50 mg-8.6 mg Tab PO SCH ×2 (11:53→17:51)
[2017-07-11] MEDS: Levothyroxine 100 MCG TAB PO SCH (11:53)
[2017-07-11] MEDS: POLYETHYLENE GLYCOL 3350 17 GM/Dose PACKET PO SCH ×2 (11:54→17:51)
[2017-07-11] MEDS: Azithromycin 500MG/NS 250ml 500 MG/250 ML BAG IVPB SCH (11:55)
--- NOTE | 2017-07-11 13:15 | CP.PCM.PN ---
<Maynor Simpson - Last Filed: 07/11/17 13:05> Subjective - Date & Time of Evaluation Date of Evaluation: 07/11/17 Time of Evaluation: 08:00 - Subjective Subjective: PGY1 Medicine Note for Dr. Morales Patient seen and examined at bedside this morning. Patient is s/p thoracentesis and paracentesis. He is breathing easier today. No complaints at this time. Objective - Vital Signs/Intake and Output Vital Signs (last 24 hours): Temp Pulse Resp BP Pulse Ox 97.7 F 87 20 114/69 98 07/11/17 08:18 07/11/17 08:18 07/11/17 08:18 07/11/17 08:18 07/11/17 08:18 Intake and Output: 07/11/17 07/11/17 06:59 18:59 Output Total 450 Balance -450 - Medications Medications: Current Medications Aspirin (Aspirin Chewable) 81 mg PO DAILY [facility] Last Admin: 07/11/17 08:36 Dose: Not Given Diltiazem HCl (Cardizem) 30 mg PO BID [facility] Docusate Sodium (Colace) 100 mg PO BID PRN PRN Reason: Constipation Last Admin: 07/11/17 11:53 Dose: 100 mg Enoxaparin Sodium (Lovenox) 70 mg SC Q12H NINA PRN Reason: Protocol Last Admin: 07/11/17 08:36 Dose: 70 mg Azithromycin (Zithromax 500mg In Ns) 500 mg in 250 mls @ 167 mls/hr IVPB DAILY [facility] PRN Reason: Protocol Last Admin: 07/11/17 11:55 Dose: 167 mls/hr Piperacillin Sod/Tazobactam Sod (Zosyn 3.375 In Ns 100ml) 100 mls @ 200 mls/hr IVPB Q6 NINA PRN Reason: Protocol Last Admin: 07/11/17 11:57 Dose: 200 mls/hr Insulin Human Regular (Humulin R Low) 0 units SC ACHS NINA PRN Reason: Protocol Last Admin: 07/11/17 11:54 Dose: Not Given Levothyroxine Sodium (Synthroid) 100 mcg PO DAILY [facility] Last Admin: 07/11/17 11:53 Dose: 100 mcg Metoprolol Tartrate (Lopressor) 5 mg IVP Q6 PRN PRN Reason: Heart rate Morphine Sulfate (Morphine) 4 mg IVP Q3H PRN PRN Reason: Pain, severe (8-10) Last Admin: 07/11/17 05:51 Dose: 4 mg Polyethylene Glycol (Miralax) 17 gm PO BID [facility] Last Admin: 07/11/17 11:54 Dose: 17 gm Senna/Docusate Sodium (Senokot S 50 Mg-8.6 Mg) 1 tab PO BID [facility] Last Admin: 07/11/17 11:53 Dose: 1 tab - Labs Labs: 07/11/17 06:00 07/11/17 06:00 PT 11.6 SECONDS (9.4-12.5) 07/11/17 06:00 INR 1.02 (0.93-1.08) 07/11/17 06:00 APTT 27.0 Seconds (25.1-36.5) 07/08/17 17:35 - Constitutional Appears: No Acute Distress - Head Exam Head Exam: ATRAUMATIC, NORMOCEPHALIC - Eye Exam Eye Exam: Normal appearance - ENT Exam ENT Exam: Mucous Membranes Moist - Respiratory Exam Respiratory Exam: Decreased Breath Sounds (right base), NORMAL BREATHING PATTERN. absent: Accessory Muscle Use, Chest Wall Tenderness, Rales, Rhonchi, Wheezes - Cardiovascular Exam Cardiovascular Exam: REGULAR RHYTHM, +S1 - GI/Abdominal Exam GI & Abdominal Exam: Soft. absent: Distended, Firm, Guarding, Rigid, Tenderness Additional comments: RUQ percutaneous drain, dressing c/d/i - Extremities Exam Extremities Exam: Pedal Edema. absent: Calf Tenderness - Neurological Exam Neurological Exam: Alert, Awake, Oriented x3 - Psychiatric Exam Psychiatric exam: Normal Affect, Normal Mood - Skin Skin Exam: Dry, Warm Assessment and Plan - Assessment and Plan (Free Text) Assessment: This is a 72yM recent diagnosis of 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 Headley on Gemcitabin, HTN, hypothryoidism s/p thryoidectomy, DM2, CAD s/p stenting who presented to the ED for worsening abdominal pain and constipation. S/P abd paracentesis 3L and thoracentesis 2L; PMN>250 Plan: Ab pain/distention in setting of stage 4 cholangiocarcinoma on chemo (2 rounds) Azithromycin 500mg IVPB daily (started 07/09) Morphine 4mg IVP q3h prn procalc 1.60 blood cx - no growth at 48 hours x2 urine cx - no growth bile fluid cx - Gram Negative Wilfred; Gram Negative Wilfred #2 * Zosyn 3.375g IVPB q6h (started on 07/11) s/p paracentesis 07/10: 3L drained * no growth s/p thoracenesis 07/10: 2L drained ID consulted GI consulted - no intervention, ADAT IR consulted- for paracentesis/thoracentesis Surgery consulted- no sx intervention at this time, bowel regimen Onc consulted LE edema 03/13 acute DVT Duplex U/S - Focal, localized bilateral DVT at the common femoral vein bifurcations CTA neg for PE Lovenox 70mg SC q12h Pleural effusion/consolidation Zosyn 3.375g IVPB q6h CTA - neg for PE Thoracentesis Bipap Encourage incentive spirometer use echo 07/09- EF ~ 56%, mild septal hypokinesis, mild MR, mild to mod pulmonary HTN body fluid cell count - pending ID consulted Cardio consulted Constipation Colace Sennakot Miralax Monitor Severe hypokalemia - removed K 3.6 Continue monitor Hypothyroidism home med: synthroid 100mcg PO daily FT4 DM ISS Accuchecks CAD ASA - on hold Cardizem 30mg PO BID Metoprolol 5mg IVP q6h prn Cardio consulted GI/DVT ppx Lovenox Diet: Liquid diet Case Discussed with Dr. Andrew Mcguire Tatiana PGY1 <Gómez Morales - Last Filed: 07/11/17 17:15> Objective - Vital Signs/Intake and Output Vital Signs (last 24 hours): Temp Pulse Resp BP Pulse Ox 98 F 99 H 16 115/80 98 07/11/17 12:00 07/11/17 14:00 07/11/17 12:00 07/11/17 12:00 07/11/17 08:18 Intake and Output: 07/11/17 07/11/17 06:59 18:59 Intake Total 1200 Output Total 450 225 Balance -450 975 - Medications Medications: Current Medications Aspirin (Aspirin Chewable) 81 mg PO DAILY [facility] Last Admin: 07/11/17 08:36 Dose: Not Given Diltiazem HCl (Cardizem) 30 mg PO BID [facility] Docusate Sodium (Colace) 100 mg PO BID PRN PRN Reason: Constipation Last Admin: 07/11/17 11:53 Dose: 100 mg Enoxaparin Sodium (Lovenox) 70 mg SC Q12H [facility]INA PRN Reason: Protocol Last Admin: 07/11/17 08:36 Dose: 70 mg Azithromycin (Zithromax 500mg In Ns) 500 mg in 250 mls @ 167 mls/hr IVPB DAILY [facility] PRN Reason: Protocol Last Admin: 07/11/17 11:55 Dose: 167 mls/hr Piperacillin Sod/Tazobactam Sod (Zosyn 3.375 In Ns 100ml) 100 mls @ 200 mls/hr IVPB Q6 [facility] PRN Reason: Protocol Last Admin: 07/11/17 11:57 Dose: 200 mls/hr Insulin Human Regular (Humulin R Low) 0 units SC ACHS [facility] PRN Reason: Protocol Last Admin: 07/11/17 16:37 Dose: Not Given Levothyroxine Sodium (Synthroid) 100 mcg PO DAILY [facility] Last Admin: 07/11/17 11:53 Dose: 100 mcg Metoprolol Tartrate (Lopressor) 5 mg IVP Q6 PRN PRN Reason: Heart rate Morphine Sulfate (Morphine) 4 mg IVP Q3H PRN PRN Reason: Pain, severe (8-10) Last Admin: 07/11/17 05:51 Dose: 4 mg Polyethylene Glycol (Miralax) 17 gm PO BID [facility] Last Admin: 07/11/17 11:54 Dose: 17 gm Senna/Docusate Sodium (Senokot S 50 Mg-8.6 Mg) 1 tab PO BID [facility] Last Admin: 07/11/17 11:53 Dose: 1 tab - Labs Labs: 07/11/17 06:00 07/11/17 06:00 PT 11.6 SECONDS (9.4-12.5) 07/11/17 06:00 INR 1.02 (0.93-1.08) 07/11/17 06:00 APTT 27.0 Seconds (25.1-36.5) 07/08/17 17:35 Attending/Attestation - Attestation I have personally seen and examined this patient.: Yes I have fully participated in the care of the patient.: Yes I have reviewed all pertinent clinical information, including history, physical exam and plan: Yes Notes (Text): 07/11/17 17:12 attending note; Patient seen and examined with resident. Patient is a 72 year old male with past medical history of cholangiocarcinoma with liver mets, hypertension, diabetes, CAD,and intrahepatic ductal dilatation s/p biliary drain placement presented with abdominal pain. Found to have ascites and right-sided pleural effusion. patient also has consolidations on the right side. currently on IV Zosyn and Zithromax. Patient is currently afebrile and nontoxic. ID evaluation appreciated. Constipation; resolved with enema. Continue MiraLAX. abdominal pain resolved. Tolerating liquid diet. advance to regular diet. pain management;. Currently on IV Morphine. status post paracentesis/thoracentesis yesterday. Ascitic fluid culture is negative so far. Bile culture is growing gram-negative rods. Follow-up identification . Case discussed with ID in detail. Bilateral lower extremity DVT. Started on subcutaneous Lovenox. we'll follow up with oncology. prognosis is poor.
--- NOTE | 2017-07-11 15:49 | CP.PCM.PN ---
Subjective - Date & Time of Evaluation Date of Evaluation: 07/11/17 Time of Evaluation: 14:30 - Subjective Subjective: Infectious Disease Follow Up: July 11, 2017 72 uzbek speaking [place] male with a PMHx of cholangiocarcinoma with liver mets, hypertension, diabetes, CAD s/p stents, obstructive jaundice, and intrahepatic ducal dilatation s/p biliary drain placement, presents to the emergency department for 8 days of constipation, worsening abdominal distension and tenderness specifically on the left quadrants. Patient admitted to constipation upon admission for approximately a week however was able to have a small bm this morning. Poor PO intake for one day prior to admission. CT abdomen demonstrated increased ascites and abdominal distention, and right pleural effusion with underlying PNA. Patient was seen and examined at bedside. Patient stating now that his abdominal pain has improved. History of lower extremity swelling and tenderness. Patient denies fever, chills, shortness of breath, chest pains, abdominal pains, nausea, vomiting, diarrhea, dysuria. He is awaiting IR evaluation for paracentesis/thoracentesis. On Ceftriaxone and Azithromycin for antibiotic coverage. S/P Thoracentesis and Paracentesis. 5 L removed. Noted that bile fluid was sent for culture. Unclear if any significance. Bile fluid often contains aerobic gram negative bacilli that can be grown out on cultures. A positive bile culture would not have any significance depending of the clinical picture of the patient especially relating to the GI issues. Objective - Vital Signs/Intake and Output Vital Signs (last 24 hours): Temp Pulse Resp BP Pulse Ox 98 F 99 H 16 115/80 98 07/11/17 12:00 07/11/17 14:00 07/11/17 12:00 07/11/17 12:00 07/11/17 08:18 Intake and Output: 07/11/17 07/11/17 06:59 18:59 Intake Total 1200 Output Total 450 225 Balance -450 975 - Medications Medications: Current Medications Aspirin (Aspirin Chewable) 81 mg PO DAILY [facility] Last Admin: 07/11/17 08:36 Dose: Not Given Diltiazem HCl (Cardizem) 30 mg PO BID [facility] Docusate Sodium (Colace) 100 mg PO BID PRN PRN Reason: Constipation Last Admin: 07/11/17 11:53 Dose: 100 mg Enoxaparin Sodium (Lovenox) 70 mg SC Q12H [facility] PRN Reason: Protocol Last Admin: 07/11/17 08:36 Dose: 70 mg Azithromycin (Zithromax 500mg In Ns) 500 mg in 250 mls @ 167 mls/hr IVPB DAILY [facility] PRN Reason: Protocol Last Admin: 07/11/17 11:55 Dose: 167 mls/hr Piperacillin Sod/Tazobactam Sod (Zosyn 3.375 In Ns 100ml) 100 mls @ 200 mls/hr IVPB Q6 [facility] PRN Reason: Protocol Last Admin: 07/11/17 11:57 Dose: 200 mls/hr Insulin Human Regular (Humulin R Low) 0 units SC ACHS [facility] PRN Reason: Protocol Last Admin: 07/11/17 11:54 Dose: Not Given Levothyroxine Sodium (Synthroid) 100 mcg PO DAILY [facility] Last Admin: 07/11/17 11:53 Dose: 100 mcg Metoprolol Tartrate (Lopressor) 5 mg IVP Q6 PRN PRN Reason: Heart rate Morphine Sulfate (Morphine) 4 mg IVP Q3H PRN PRN Reason: Pain, severe (8-10) Last Admin: 07/11/17 05:51 Dose: 4 mg Polyethylene Glycol (Miralax) 17 gm PO BID [facility] Last Admin: 07/11/17 11:54 Dose: 17 gm Senna/Docusate Sodium (Senokot S 50 Mg-8.6 Mg) 1 tab PO BID [facility] Last Admin: 07/11/17 11:53 Dose: 1 tab - Labs Labs: 07/11/17 06:00 07/11/17 06:00 PT 11.6 SECONDS (9.4-12.5) 07/11/17 06:00 INR 1.02 (0.93-1.08) 07/11/17 06:00 APTT 27.0 Seconds (25.1-36.5) 07/08/17 17:35 - Constitutional Appears: Non-toxic, No Acute Distress, Chronically Ill - Head Exam Head Exam: ATRAUMATIC, NORMOCEPHALIC - Eye Exam Eye Exam: EOMI, PERRL Pupil Exam: NORMAL ACCOMODATION, PERRL - ENT Exam ENT Exam: Mucous Membranes Moist, Normal External Ear Exam, TM's Normal Bilaterally - Neck Exam Neck Exam: Full ROM, Normal Inspection - Respiratory Exam Respiratory Exam: Clear to Ausculation Bilateral, NORMAL BREATHING PATTERN. absent: Rales, Rhonchi, Wheezes - Cardiovascular Exam Cardiovascular Exam: REGULAR RHYTHM, RRR, +S1, +S2 - GI/Abdominal Exam GI & Abdominal Exam: Distended, Soft Additional comments: Ascites - s/p paracentesis, there is reduction of the abdominal distension. - Extremities Exam Extremities Exam: Joint Swelling, Pedal Edema Additional comments: +3-4 edema. - Neurological Exam Neurological Exam: Alert, Awake, CN II-XII Intact, Oriented x3 - Psychiatric Exam Psychiatric exam: Normal Affect, Normal Mood - Skin Skin Exam: Intact, Normal Color, Warm Assessment and Plan - Assessment and Plan (Free Text) Assessment: 72 yo [place] male with history of cholangiocarcinoma with liver metastasis being currently treated with Gemcitabin and kluti kaah. He is currently being evaluated for Ytterium treatment. Awaiting IR evaluation. No leukocytosis. Supportive care. Procalcitonin of 1.6... this is of unclear significance given cholangiocarcinoma. Given that the procalcitonin was normal earlier in the month, the current procalcitonin level would support that an infective process may be present. Monitor procalcitonin levels. The patient is on Rocephin and Azithromycin. May need to expand antibiotic coverage further with Cefepime IV however, Zosyn has better anaerobic coverage. Fitzpatrick cultures pending. Trend procalcitonin levels. Down to 0.40 now. Unclear why Bile fluid sent for culture. Presence of gram negative bacilli can be normal from bile fluid. Case discussed with medical team. Supportive care. Thank you for allowing me to participate in the care of the patient, we will follow with you.
[2017-07-12] MEDS: Piperacillin/Tazobact 3.375 gm 100 ML IVPB SCH ×3 (06:10→17:25)
[2017-07-12 06:47] LABS: BASO # 0.02 K/mm3 (0.0-2.0); BASO % 0.4 % (0.0-3.0); EOS # 0.2 (0.0-0.7); EOS % 3.3 % (1.5-5.0); GRAN # 2.37 (1.4-6.5); GRAN % 52.1 % (50.0-68.0); LYMPH # 1.5 (1.2-3.4); LYMPH % 32.3 % (22.0-35.0); MEAN CELL VOLUME 89.2 fl (80.0-105.0); MEAN CORPUSCULAR HEMOGLOBIN 29.9 pg (25.0-35.0); MEAN CORPUSCULAR HGB CONC 33.6 g/dl (31.0-37.0); MEAN PLATELET VOLUME 9.4 fl (7.0-11.0); MONO # 0.5 (0.1-0.6); MONO % 11.9 % (1.0-6.0); RBC 3.34 10^6/uL (3.5-6.1); RED CELL DISTRIBUTION WIDTH 15.5 % (11.5-14.5); WHITE BLOOD COUNT 4.6 10^3/ul (4.5-11.0)
[2017-07-12 06:55] LABS: INR 1.05 (0.93-1.08); PROTHROMBIN TIME 12.1 SECONDS (9.4-12.5)
[2017-07-12 07:32] LABS: ALB/GLOB RATIO 0.9 (1.1-1.8); ALBUMIN 2.4 g/dL (3.0-4.8); ALT/SGPT 37 U/L (7-56); AST/SGOT 41 U/L (17-59); BLOOD UREA NITROGEN 12 mg/dL (7-21); GFR AFRICAN-AMERICAN > 60; GFR NON-AFRICAN AMERICAN > 60
[2017-07-12] MEDS: Morphine 4 mg/ml ISec IVP PRN ×2 (07:34→22:12)
[2017-07-12] MEDS: Morphine 4 mg/ml ISec IVP SCH ×3 (07:41→20:26)
[2017-07-12] MEDS: Insulin Reg-LOW-Coverage SC SCH ×4 (07:48→21:42)
[2017-07-12] MEDS: Levothyroxine 100 MCG TAB PO SCH (09:06)
[2017-07-12] MEDS: POLYETHYLENE GLYCOL 3350 17 GM/Dose PACKET PO SCH ×2 (09:07→17:25)
[2017-07-12] MEDS: Docusate-Senna 50 mg-8.6 mg Tab PO SCH ×2 (09:09→17:24)
[2017-07-12] MEDS: Enoxaparin 80 mg Syringe SC SCH ×2 (09:09→20:19)
[2017-07-12] MEDS: Azithromycin 500MG/NS 250ml 500 MG/250 ML BAG IVPB SCH (09:10)
--- NOTE | 2017-07-12 10:47 | CP.PCM.PN ---
<Maynor Simpson - Last Filed: 07/12/17 12:16> Subjective - Date & Time of Evaluation Date of Evaluation: 07/12/17 Time of Evaluation: 08:00 - Subjective Subjective: PGY1 Medicine Note for Dr. Morales Patient seen and examined at bedside this morning. Patient experienced strong back pains last night. He is currently sitting in the chair next to his bed leaning on the table in front of him because it is the most comfortable position for him. He has been tolerating his liquid diet at this time. His breathing is normal and only complains of severe back pain. Patient reports his breathing still feels normal today. Denies fevers, chills, nausea, vomiting, diarrhea, constipation, chest pain, shortness of breath, abdominal pain, numbness or tingling. Objective - Vital Signs/Intake and Output Vital Signs (last 24 hours): Temp Pulse Resp BP Pulse Ox 97.9 F 86 20 104/62 98 07/12/17 07:35 07/12/17 09:09 07/12/17 07:35 07/12/17 09:09 07/12/17 07:35 Intake and Output: 07/12/17 07/12/17 06:59 18:59 Intake Total 120 Output Total 575 Balance -455 - Medications Medications: Current Medications Aspirin (Ecotrin) 81 mg PO DAILY REPLACED BY [facility] Last Admin: 07/12/17 09:09 Dose: 81 mg Diltiazem HCl (Cardizem) 30 mg PO BID REPLACED BY [facility] Last Admin: 07/12/17 09:09 Dose: 30 mg Docusate Sodium (Colace) 100 mg PO BID PRN PRN Reason: Constipation Last Admin: 07/12/17 09:09 Dose: 100 mg Enoxaparin Sodium (Lovenox) 70 mg SC Q12H [facility] PRN Reason: Protocol Last Admin: 07/12/17 09:09 Dose: 70 mg Piperacillin Sod/Tazobactam Sod (Zosyn 3.375 In Ns 100ml) 100 mls @ 200 mls/hr IVPB Q6 [facility] PRN Reason: Protocol Last Admin: 07/12/17 06:10 Dose: 200 mls/hr Insulin Human Regular (Humulin R Low) 0 units SC ACHS [facility] PRN Reason: Protocol Last Admin: 07/12/17 07:48 Dose: Not Given Levothyroxine Sodium (Synthroid) 100 mcg PO DAILY REPLACED BY [facility] Last Admin: 07/12/17 09:06 Dose: 100 mcg Metoprolol Tartrate (Lopressor) 5 mg IVP Q6 PRN PRN Reason: Heart rate Morphine Sulfate (Morphine) 4 mg IVP Q3H PRN PRN Reason: Pain, severe (8-10) Last Admin: 07/12/17 07:34 Dose: 4 mg Morphine Sulfate (Morphine) 4 mg IVP Q6H REPLACED BY [facility] Last Admin: 07/12/17 07:41 Dose: Not Given Polyethylene Glycol (Miralax) 17 gm PO BID REPLACED BY [facility] Last Admin: 07/12/17 09:07 Dose: 17 gm Senna/Docusate Sodium (Senokot S 50 Mg-8.6 Mg) 1 tab PO BID REPLACED BY [facility] Last Admin: 07/12/17 09:09 Dose: 1 tab Warfarin Sodium (Coumadin) 5 mg PO 1800 REPLACED BY [facility] PRN Reason: Protocol - Labs Labs: 07/12/17 06:30 07/12/17 06:30 PT 12.1 SECONDS (9.4-12.5) 07/12/17 06:30 INR 1.05 (0.93-1.08) 07/12/17 06:30 APTT 27.0 Seconds (25.1-36.5) 07/08/17 17:35 - Constitutional Appears: Non-toxic, Cachectic, Chronically Ill, Other (appears in pain) - Head Exam Head Exam: ATRAUMATIC - Eye Exam Eye Exam: EOMI, Normal appearance - ENT Exam ENT Exam: Mucous Membranes Moist - Neck Exam Neck Exam: absent: Lymphadenopathy - Respiratory Exam Respiratory Exam: Clear to Ausculation Bilateral, NORMAL BREATHING PATTERN. absent: Accessory Muscle Use, Rales, Rhonchi, Wheezes, Respiratory Distress - Cardiovascular Exam Cardiovascular Exam: REGULAR RHYTHM, +S1, +S2 - GI/Abdominal Exam GI & Abdominal Exam: Soft. absent: Distended, Firm, Guarding, Rigid, Tenderness Additional comments: RUQ percutaneous drain, dressing c/d/i - Extremities Exam Extremities Exam: Pedal Edema (3+ b/l up to knees). absent: Calf Tenderness - Back Exam Back Exam: vertebral tenderness (lumbar region tender to palpation and has baseline constant pain now.). 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 Headley on Gemcitabin, HTN, hypothryoidism s/p thryoidectomy, DM2, CAD s/p stenting who presented to the ED for worsening abdominal pain and constipation. S/P abd paracentesis 3L and thoracentesis 2L; PMN>250 Plan: Ab pain/distention in setting of stage 4 cholangiocarcinoma on chemo (2 rounds) Azithromycin 500mg IVPB daily (started 07/09) Morphine 4mg IVP q6h nancy Morphine 4mg IVP q3h prn Granix 480mcg SC daily (total of 7 doses, last dose on 07/15) procalc 1.60 blood cx - no growth at 3 days x2 urine cx - no growth bile fluid cx - E. Coli (goetz sensitive) and Stenotrophomonas Maltophilia (no sensitivities yet) * Zosyn 3.375g IVPB q6h (started on 07/11) s/p paracentesis 07/10: 3L drained * no growth * body fluid cell count (peritoneal fluid) - 100 (netro 71.4; Lymph 28.6) * fluid studies pending s/p thoracenesis 07/10: 2L drained * fluid studies pending ID consulted GI consulted - no intervention, ADAT IR consulted- for paracentesis/thoracentesis Surgery consulted- no sx intervention at this time, bowel regimen Onc consulted Lumbar Back Pain - r/o mets Lumbar Spine CT w/o 07/12: No evidence of suspicious lytic or blastic lesions within the lumbosacral spine or visualized lower upper thoracic segments. Large right-sided effusion. Abdominal ascites. In situ percutaneous transhepatic biliary stent. Morphine 4mg IVP q6h nancy Morphine 4mg IVP q3h prn continue to monitor LE edema 2/2 acute DVT Duplex U/S - Focal, localized bilateral DVT at the common femoral vein bifurcations CTA neg for PE Lovenox 70mg SC q12h - Starting transition to Coumadin today. Start Coumadin 5mg PO daily - f/u INR daily until therapeutic Pleural effusion/consolidation Zosyn 3.375g IVPB q6h CTA 07/09- 1. Large right and trace left pleural effusion. 2. Right lower lobe right middle lobe , left basilar and lingular nonspecific infiltrates and consolidation are present, consistent with atelectasis or pneumonia. 3. No CT evidence for pulmonary embolus. The segmental and subsegmental branch pulmonary arteries are degraded by motion artifact. Thoracentesis - drained 2L Bipap Encourage incentive spirometer use ECHO 07/09- EF ~ 56%, mild septal hypokinesis, mild MR, mild to mod pulmonary HTN Fluids studies pending ID consulted Cardio consulted Constipation Colace Sennakot Miralax Monitor Hypokalemia K 3.3 repleted Continue monitor Hypothyroidism home med: synthroid 100mcg PO daily FT4 DM ISS Accuchecks CAD ASA 81mg PO daily Cardizem 30mg PO BID Metoprolol 5mg IVP q6h prn Cardio consulted GI/DVT ppx Lovenox - transition to coumadin - 5mg PO daily starting today Diet: Regular soft diet, 6 small meals Case Discussed with Dr. Andrew Mcguire Tatiana PGY1 <Gómez Morales - Last Filed: 07/12/17 15:13> Objective - Vital Signs/Intake and Output Vital Signs (last 24 hours): Temp Pulse Resp BP Pulse Ox 98.6 F 81 20 104/62 98 07/12/17 10:00 07/12/17 10:00 07/12/17 10:00 07/12/17 10:00 07/12/17 10:00 Intake and Output: 07/12/17 07/12/17 06:59 18:59 Intake Total 120 1080 Output Total 575 500 Balance -455 580 - Medications Medications: Current Medications Aspirin (Ecotrin) 81 mg PO DAILY REPLACED BY [facility] Last Admin: 07/12/17 09:09 Dose: 81 mg Diltiazem HCl (Cardizem) 30 mg PO BID REPLACED BY [facility] Last Admin: 07/12/17 09:09 Dose: 30 mg Docusate Sodium (Colace) 100 mg PO BID PRN PRN Reason: Constipation Last Admin: 07/12/17 09:09 Dose: 100 mg Enoxaparin Sodium (Lovenox) 70 mg SC Q12H [facility] PRN Reason: Protocol Last Admin: 07/12/17 09:09 Dose: 70 mg Piperacillin Sod/Tazobactam Sod (Zosyn 3.375 In Ns 100ml) 100 mls @ 200 mls/hr IVPB Q6 [facility] PRN Reason: Protocol Last Admin: 07/12/17 11:44 Dose: 200 mls/hr Insulin Human Regular (Humulin R Low) 0 units SC ACHS [facility] PRN Reason: Protocol Last Admin: 07/12/17 11:36 Dose: Not Given Levothyroxine Sodium (Synthroid) 100 mcg PO DAILY REPLACED BY [facility] Last Admin: 07/12/17 09:06 Dose: 100 mcg Metoprolol Tartrate (Lopressor) 5 mg IVP Q6 PRN PRN Reason: Heart rate Morphine Sulfate (Morphine) 4 mg IVP Q3H PRN PRN Reason: Pain, severe (8-10) Last Admin: 07/12/17 07:34 Dose: 4 mg Morphine Sulfate (Morphine) 4 mg IVP Q6H REPLACED BY [facility] Last Admin: 07/12/17 07:41 Dose: Not Given Polyethylene Glycol (Miralax) 17 gm PO BID REPLACED BY [facility] Last Admin: 07/12/17 09:07 Dose: 17 gm Senna/Docusate Sodium (Senokot S 50 Mg-8.6 Mg) 1 tab PO BID REPLACED BY [facility] Last Admin: 07/12/17 09:09 Dose: 1 tab Warfarin Sodium (Coumadin) 5 mg PO 1800 REPLACED BY [facility] PRN Reason: Protocol - Labs Labs: 07/12/17 06:30 07/12/17 06:30 PT 12.1 SECONDS (9.4-12.5) 07/12/17 06:30 INR 1.05 (0.93-1.08) 07/12/17 06:30 APTT 27.0 Seconds (25.1-36.5) 07/08/17 17:35 Attending/Attestation - Attestation I have personally seen and examined this patient.: Yes I have fully participated in the care of the patient.: Yes I have reviewed all pertinent clinical information, including history, physical exam and plan: Yes Notes (Text): 07/12/17 15:06 attending note; Patient seen and examined with resident. Patient is a 72 year old male with past medical history of cholangiocarcinoma with liver mets, hypertension, diabetes, CAD,and intrahepatic ductal dilatation s/p biliary drain placement presented with abdominal pain. Found to have ascites and right-sided pleural effusion. patient also has consolidations on the right side. currently on IV Zosyn. Patient is currently afebrile and nontoxic. ID evaluation appreciated. status post paracentesis/thoracentesis. Ascitic fluid culture is negative so far. Biliary drain fluid is positive for Escherichia coli. Constipation; resolved with enema. Continue MiraLAX. abdominal pain resolved. Tolerating liquid diet. advance to regular diet. pain management;. Currently on IV Morphine. Bilateral lower extremity DVT. Started on subcutaneous Lovenox. Started on Coumadin. Case discussed with oncology in detail. Back pain; lumbosacral spine CT is negative for metastatic disease. prognosis is poor.
[2017-07-12] MEDS ORDERED: Potassium Chloride 40 mEq/30 ml LIQ UD PO ONE (10:49)
--- NOTE | 2017-07-12 11:32 | CT ---
PROCEDURE: CT lumbar spine. HISTORY: Back pain; rule out metastasis. . Include lower T-spine. COMPARISON: Comparison made with CTA chest dated 07/12/2017 which image the thoracic spine in 3 planes. Comparison also made with CT scan abdomen pelvis and PET-CT scan dated 05/14/2017 and 06/24/2017 respectively. TECHNIQUE: Helical/ transaxial sections were obtained of the lumbar spine from the mid to lower T11 through the coccyx without the use of intravenous contrast. Coronal and sagittal reformatted images were created and reviewed. Radiation dose: Total exam DLP = 848.08 mGy-cm. This CT exam was performed using one or more of the following dose reduction techniques: Automated exposure control, adjustment of the mA and/or kV according to patient size, and/or use of iterative reconstruction technique. . FINDINGS: VERTEBRAE: The at current study reveals no acute compression fractures no retropulsed fragments. The vertebral bodies exhibit normal stature. There is mild levoscoliosis. Vertebral bodies otherwise exhibit normal alignment. . . There are no suspicious lytic or blastic lesions. . DISCS/SPINAL CANAL/NEURAL FORAMINA: Mild multilevel degenerative spondylosis. . At the L5-S1 level, there is minor posterior disc space narrowing. Small broad-based bulge ridge complex extends slightly into the inferior margins of both exit foramina. Facet joints are mild to moderately hypertrophic. . Central canal appears appears marginal to minimally narrowed. Exit foramina adequate. At the L4-L5 level, there is also mild posterior disc space narrowing. Small broad-based bulge ridge complex results in some flattening of the ventral surface of the thecal sac. Facets are hypertrophic. Central canal is adequate. Exit foramina on proximal exit foramina appear mildly narrowed. At the L3-L4 level, there is also minor posterior disc space narrowing. Moderate-sized broad-based disc bulge ridge complex extends into the proximal margins of both exit foramina more so on the left side. There is moderate flattening of the ventral surface of the thecal sac and. Mild canal narrowing. Facet joints also hypertrophic. Exit foramina appear marginal to adequate. At the L2-L3 level, there is disc space narrowing, more so along the posterior disc margin with small broad-based disc ridge complex that also extends slightly into the proximal inferior margins of both exit foramina. There is some flattening the ventral surface of thecal sac however the overall central canal appears adequate. Facets are hypertrophic. Exit foramina adequate. PARASPINAL SOFT TISSUES: Unremarkable. Paraspinal soft tissues unremarkable. OTHER FINDINGS: Large right-sided pleural effusion and abdominal ascites again noted. . Prominent left renal cyst again seen as well. IMPRESSION: No evidence of suspicious lytic or blastic lesions within the lumbosacral spine or visualized lower upper thoracic segments Large right-sided effusion. Abdominal ascites. In situ percutaneous transhepatic biliary stent.
--- NOTE | 2017-07-12 17:40 | PN ---
DATE: 07/12/2017 SUBJECTIVE: The patient is in good spirits. He denies any palpitations or dizziness. No reported SVT. He is in sinus rhythm on the monitor. PHYSICAL EXAMINATION: VITAL SIGNS: Blood pressure 104/62, heart rate 84, temperature 98.6, respirations 20. HEENT: Normocephalic. CHEST: Bilateral rhonchi. HEART: S1, S2 regular. LABORATORY DATA: Hemoglobin and hematocrit 10 and 29.8, white count and platelet count today are within normal limits. Today's SMA-7 is within normal limits except for potassium of 3.3, calcium is 8. Lumbar spine CT scan, no evidence of lytic or blastic lesions in the lumbosacral spine, right-sided pleural effusion, abdominal ascites and in situ percutaneous transhepatic biliary stent. ASSESSMENT: 1. Liver cancer. 2. Supraventricular tachycardia. 3. Bilateral deep venous thrombosis. RECOMMENDATIONS: Continue Cardizem 30 mg twice a day, Coumadin was initiated today at 5 mg daily. Continue aspirin 81 mg once a day, therapeutic subcutaneous Lovenox at 70 mg twice a day, and Synthroid 100 mcg once a day. Yash Harrison MD
--- NOTE | 2017-07-12 17:47 | CP.PCM.PN ---
Subjective - Date & Time of Evaluation Date of Evaluation: 07/12/17 Time of Evaluation: 15:45 - Subjective Subjective: Infectious Disease Follow Up: July 12, 2017 72 latvian speaking Citizen Of [place] male with a PMHx of cholangiocarcinoma with liver mets, hypertension, diabetes, CAD s/p stents, obstructive jaundice, and intrahepatic ducal dilatation s/p biliary drain placement, presents to the emergency department for 8 days of constipation, worsening abdominal distension and tenderness specifically on the left quadrants. Patient admitted to constipation upon admission for approximately a week however was able to have a small bm this morning. Poor PO intake for one day prior to admission. CT abdomen demonstrated increased ascites and abdominal distention, and right pleural effusion with underlying PNA. Patient was seen and examined at bedside. Patient stating now that his abdominal pain has improved. History of lower extremity swelling and tenderness. Patient denies fever, chills, shortness of breath, chest pains, abdominal pains, nausea, vomiting, diarrhea, dysuria. He is awaiting IR evaluation for paracentesis/thoracentesis. On Ceftriaxone and Azithromycin for antibiotic coverage. S/P Thoracentesis and Paracentesis. 5 L removed in total. Noted that bile fluid was sent for culture. Unclear if any significance. Bile fluid often contains aerobic gram negative bacilli that can be grown out on cultures. A positive bile culture would not have any significance depending of the clinical picture of the patient especially relating to the GI issues. Growth of E. coli and Stenotrophomonas Maltophilia. Common organisms in bile duct fluid and GI tract. The patient is breathing better since thoracentesis and paracentesis. His biggest complaint is of back pain right now. Objective - Vital Signs/Intake and Output Vital Signs (last 24 hours): Temp Pulse Resp BP Pulse Ox 98.6 F 80 20 104/68 98 07/12/17 10:00 07/12/17 17:24 07/12/17 10:00 07/12/17 17:24 07/12/17 10:00 Intake and Output: 07/12/17 07/12/17 06:59 18:59 Intake Total 120 1080 Output Total 575 500 Balance -455 580 - Medications Medications: Current Medications Aspirin (Ecotrin) 81 mg PO DAILY [facility] Last Admin: 07/12/17 09:09 Dose: 81 mg Diltiazem HCl (Cardizem) 30 mg PO BID [facility] Last Admin: 07/12/17 17:24 Dose: 30 mg Docusate Sodium (Colace) 100 mg PO BID PRN PRN Reason: Constipation Last Admin: 07/12/17 09:09 Dose: 100 mg Enoxaparin Sodium (Lovenox) 70 mg SC Q12H [facility] PRN Reason: Protocol Last Admin: 07/12/17 09:09 Dose: 70 mg Piperacillin Sod/Tazobactam Sod (Zosyn 3.375 In Ns 100ml) 100 mls @ 200 mls/hr IVPB Q6 [facility] PRN Reason: Protocol Last Admin: 07/12/17 17:25 Dose: 200 mls/hr Insulin Human Regular (Humulin R Low) 0 units SC ACHS [facility] PRN Reason: Protocol Last Admin: 07/12/17 17:08 Dose: Not Given Levothyroxine Sodium (Synthroid) 100 mcg PO DAILY [facility] Last Admin: 07/12/17 09:06 Dose: 100 mcg Metoprolol Tartrate (Lopressor) 5 mg IVP Q6 PRN PRN Reason: Heart rate Morphine Sulfate (Morphine) 4 mg IVP Q3H PRN PRN Reason: Pain, severe (8-10) Last Admin: 07/12/17 07:34 Dose: 4 mg Morphine Sulfate (Morphine) 4 mg IVP Q6H [facility] Last Admin: 07/12/17 15:45 Dose: Not Given Polyethylene Glycol (Miralax) 17 gm PO BID [facility] Last Admin: 07/12/17 17:25 Dose: 17 gm Senna/Docusate Sodium (Senokot S 50 Mg-8.6 Mg) 1 tab PO BID [facility] Last Admin: 07/12/17 17:24 Dose: 1 tab Warfarin Sodium (Coumadin) 7.5 mg PO 1800 [facility] PRN Reason: Protocol Last Admin: 07/12/17 17:24 Dose: 7.5 mg - Labs Labs: 07/12/17 06:30 07/12/17 06:30 PT 12.1 SECONDS (9.4-12.5) 07/12/17 06:30 INR 1.05 (0.93-1.08) 07/12/17 06:30 APTT 27.0 Seconds (25.1-36.5) 07/08/17 17:35 - Constitutional Appears: Non-toxic, No Acute Distress, Chronically Ill - Head Exam Head Exam: ATRAUMATIC, NORMOCEPHALIC - Eye Exam Eye Exam: EOMI, PERRL Pupil Exam: NORMAL ACCOMODATION, PERRL - ENT Exam ENT Exam: Mucous Membranes Moist, Normal External Ear Exam, TM's Normal Bilaterally - Neck Exam Neck Exam: Full ROM, Normal Inspection - Respiratory Exam Respiratory Exam: Clear to Ausculation Bilateral, NORMAL BREATHING PATTERN. absent: Rales, Rhonchi, Wheezes - Cardiovascular Exam Cardiovascular Exam: REGULAR RHYTHM, RRR, +S1, +S2 - GI/Abdominal Exam GI & Abdominal Exam: Distended, Soft Additional comments: Ascites - s/p paracentesis, there is reduction of the abdominal distension. - Extremities Exam Extremities Exam: Joint Swelling, Pedal Edema Additional comments: +2-3 edema - Neurological Exam Neurological Exam: Alert, Awake, CN II-XII Intact, Oriented x3 - Psychiatric Exam Psychiatric exam: Normal Affect, Normal Mood - Skin Skin Exam: Intact, Normal Color Assessment and Plan - Assessment and Plan (Free Text) Assessment: 72 yo Citizen Of [place] male with history of cholangiocarcinoma with liver metastasis being currently treated with Gemcitabin and circle. He is currently being evaluated for Ytterium treatment. Awaiting IR evaluation. No leukocytosis. Supportive care. Procalcitonin of 1.6... this is of unclear significance given cholangiocarcinoma. Given that the procalcitonin was normal earlier in the month, the current procalcitonin level would support that an infective process may be present. Monitor procalcitonin levels. The patient is on Rocephin and Azithromycin. May need to expand antibiotic coverage further with Cefepime IV however, Zosyn has better anaerobic coverage. Fitzpatrick cultures pending. Trend procalcitonin levels. Down to 0.40 now. Unclear why Bile fluid sent for culture. Presence of gram negative bacilli can be normal from bile fluid. E. coli and Stenotrophomonas are normal bacteria in GI tract. Case discussed with medical team. Extensive discussion with patient's son. Supportive care. Thank you for allowing me to participate in the care of the patient, we will follow with you.
[2017-07-13] MEDS ORDERED: Benzocaine/Menthol (Cepacol) Lozenge MT PRN (00:10)
[2017-07-13] MEDS: Piperacillin/Tazobact 3.375 gm 100 ML IVPB SCH ×5 (00:19→23:25)
[2017-07-13] MEDS: Morphine 4 mg/ml ISec IVP SCH ×4 (02:00→20:00)
[2017-07-13 07:27] LABS: BASO # 0.05 K/mm3 (0.0-2.0); BASO % 0.6 % (0.0-3.0); EOS # 0.2 (0.0-0.7); EOS % 2.4 % (1.5-5.0); GRAN # 4.41 (1.4-6.5); GRAN % 56.8 % (50.0-68.0); HEMOGLOBIN 9.6 g/dL (14.0-18.0); LYMPH % 25.9 % (22.0-35.0); MEAN CORPUSCULAR HGB CONC 33.3 g/dl (31.0-37.0); MEAN PLATELET VOLUME 10.3 fl (7.0-11.0); MONO # 1.1 (0.1-0.6); MONO % 14.3 % (1.0-6.0); RBC 3.2 10^6/uL (3.5-6.1); RED CELL DISTRIBUTION WIDTH 15.7 % (11.5-14.5); WHITE BLOOD COUNT 7.8 10^3/ul (4.5-11.0)
[2017-07-13 07:37] LABS: ALB/GLOB RATIO 0.8 (1.1-1.8); ALBUMIN 2.2 g/dL (3.0-4.8); ALT/SGPT 31 U/L (7-56); AST/SGOT 27 U/L (17-59); BLOOD UREA NITROGEN 8 mg/dL (7-21); CALCIUM 7.6 mg/dL (8.4-10.5); GFR AFRICAN-AMERICAN > 60; GFR NON-AFRICAN AMERICAN > 60
[2017-07-13] MEDS: Insulin Reg-LOW-Coverage SC SCH ×3 (07:56→16:30)
[2017-07-13] MEDS: Enoxaparin 80 mg Syringe SC SCH (08:13)
[2017-07-13 08:49] LABS: INR 1.13 (0.93-1.08); PARTIAL THROMBOPLASTIN TIME 26.6 Seconds (25.1-36.5)
[2017-07-13] MEDS: POLYETHYLENE GLYCOL 3350 17 GM/Dose PACKET PO SCH ×3 (09:55→17:30)
[2017-07-13] MEDS: Docusate-Senna 50 mg-8.6 mg Tab PO SCH ×3 (09:55→17:30)
[2017-07-13] MEDS: Levothyroxine 100 MCG TAB PO SCH (09:55)
[2017-07-13] MEDS ORDERED: Potassium Chloride 20 mEq ER Tab PO STA (12:46)
--- NOTE | 2017-07-13 13:22 | CP.PCM.PN ---
<Salud Rowe - Last Filed: 07/13/17 13:04> Subjective - Date & Time of Evaluation Date of Evaluation: 07/13/17 Time of Evaluation: 13:04 - Subjective Subjective: Salud Rowe, PGY1, Medicine Progress Note for Dr Morales: Patient seen and examined at bedside. No acute events overnight. Pt reports large BM yesterday. States that his back pain is better. Denies leg pain, sob, cp, cough, abdominal pain. Objective - Vital Signs/Intake and Output Vital Signs (last 24 hours): Temp Pulse Resp BP Pulse Ox 97.7 F 84 20 105/69 99 07/13/17 07:42 07/13/17 10:00 07/13/17 07:42 07/13/17 09:55 07/13/17 07:42 Intake and Output: 07/13/17 07/13/17 06:59 18:59 Intake Total 120 Output Total 725 Balance -605 - Medications Medications: Current Medications Aspirin (Ecotrin) 81 mg PO DAILY [facility] Last Admin: 07/13/17 09:55 Dose: 81 mg Diltiazem HCl (Cardizem) 30 mg PO BID [facility] Last Admin: 07/13/17 09:55 Dose: 30 mg Enoxaparin Sodium (Lovenox) 70 mg SC Q12H [facility] PRN Reason: Protocol Last Admin: 07/13/17 08:13 Dose: 70 mg Piperacillin Sod/Tazobactam Sod (Zosyn 3.375 In Ns 100ml) 100 mls @ 200 mls/hr IVPB Q6 [facility] PRN Reason: Protocol Last Admin: 07/13/17 05:10 Dose: 200 mls/hr Insulin Human Regular (Humulin R Low) 0 units SC ACHS [facility] PRN Reason: Protocol Last Admin: 07/13/17 11:24 Dose: Not Given Levothyroxine Sodium (Synthroid) 100 mcg PO DAILY [facility] Last Admin: 07/13/17 09:55 Dose: 100 mcg Metoprolol Tartrate (Lopressor) 5 mg IVP Q6 PRN PRN Reason: Heart rate Morphine Sulfate (Morphine) 4 mg IVP Q6H [facility] Last Admin: 07/13/17 09:54 Dose: Not Given Polyethylene Glycol (Miralax) 17 gm PO BID [facility] Last Admin: 07/13/17 09:55 Dose: 17 gm Potassium Chloride (K-Dur 20 Meq Er Tab) 20 meq PO ONCE ONE Stop: 07/13/17 16:01 Senna/Docusate Sodium (Senokot S 50 Mg-8.6 Mg) 1 tab PO BID [facility] Last Admin: 07/13/17 09:55 Dose: 1 tab Warfarin Sodium (Coumadin) 7.5 mg PO 1800 [facility] PRN Reason: Protocol Last Admin: 07/12/17 17:24 Dose: 7.5 mg - Labs Labs: 07/13/17 06:00 07/13/17 06:00 PT 13.0 SECONDS (9.4-12.5) H 07/13/17 08:20 INR 1.13 (0.93-1.08) H 07/13/17 08:20 APTT 26.6 Seconds (25.1-36.5) 07/13/17 08:20 - Constitutional Appears: Non-toxic, Chronically Ill - Head Exam Head Exam: ATRAUMATIC, NORMOCEPHALIC - Eye Exam Eye Exam: EOMI, PERRL. absent: Conjunctival injection, Nystagmus, Scleral icterus Pupil Exam: NORMAL ACCOMODATION, PERRL. absent: Fixed, Irregular, Unequal - ENT Exam ENT Exam: Mucous Membranes Moist - Neck Exam Neck Exam: Full ROM - Respiratory Exam Respiratory Exam: Decreased Breath Sounds - Cardiovascular Exam Cardiovascular Exam: RRR, +S1, +S2. absent: Murmur - GI/Abdominal Exam GI & Abdominal Exam: Soft, Normal Bowel Sounds. absent: Distended, Firm, Guarding, Rigid, Tenderness, Mass, Organomegaly - Extremities Exam Extremities Exam: Pedal Edema. absent: Calf Tenderness - Back Exam Back Exam: NORMAL INSPECTION - Neurological Exam Neurological Exam: Alert, Awake, Oriented x3 - Psychiatric Exam Psychiatric exam: Normal Affect, Normal Mood - Skin Skin Exam: Dry, Normal Color, Warm Assessment and Plan - Assessment and Plan (Free Text) Assessment: 72 year old male with recent diagnosis of cholangiocarcinoma with metastasis to the liver s/p percutaneous biliary stent (internal and external) by IR - currently on chemotherapy with Dr. Headley on Gemcitabin, HTN, hypothryoidism s/ p thryoidectomy, DM2, CAD s/p stent who presented to the ED for worsening abdominal pain and constipation, s/p abd paracentesis 3L and thoracentesis 2L; PMN>250, awaiting ascitic fluid culture results: Abd pain/distention in setting of stage 4 cholangiocarcinoma on chemo (2 rounds) Zosyn Morphine 4mg IVP q6h nancy Granix 480mcg SC daily (total of 7 doses, last dose on 07/15) procalc 1.60, downtrended to 0.4. blood cx (2/2) NTD urine cx - no growth bile fluid cx - E. Coli (goetz sensitive) and Stenotrophomonas Maltophilia (no sensitivities yet) - taken from external drain, no need for treatment as per ID. s/p paracentesis 07/10: 3L drained * no growth * body fluid cell count (peritoneal fluid) - 100 (netro 71.4; Lymph 28.6) * fluid studies pending s/p thoracenesis 07/10: 2L drained * fluid studies pending ID consulted. appreciate recs. GI consulted - no intervention, [facility] IR on board. Will discuss the need to possibly remove external drain prior to discharge. Surgery consulted- no sx intervention at this time, bowel regimen Onc consulted Lumbar Back Pain - 2/2 degenerative disease, ruled out mets Lumbar Spine CT w/o 07/12: No evidence of suspicious lytic or blastic lesions within the lumbosacral spine or visualized lower upper thoracic segments. Large right-sided effusion. Abdominal ascites. In situ percutaneous transhepatic biliary stent. Morphine 4mg IVP q6h nancy continue to monitor LE edema 2/2 acute DVT Duplex U/S - Focal, localized bilateral DVT at the common femoral vein bifurcations CTA neg for PE Lovenox 70mg SC q12h - started bridging to Coumadin. monitor daily INR until therapeutic. Pleural effusion/consolidation Zosyn 3.375g IVPB q6h CTA 07/09- 1. Large right and trace left pleural effusion. 2. Right lower lobe right middle lobe , left basilar and lingular nonspecific infiltrates and consolidation are present, consistent with atelectasis or pneumonia. 3. No CT evidence for pulmonary embolus. The segmental and subsegmental branch pulmonary arteries are degraded by motion artifact. Thoracentesis - drained 2L NC Encourage incentive spirometer use ECHO 07/09- EF ~ 56%, mild septal hypokinesis, mild MR, mild to mod pulmonary HTN Fluids studies pending ID consulted Cardio consulted Constipation Colace S[place] Miralax Monitor Hypokalemia K 3.5 repleted Continue monitor Hypothyroidism Hx of thyroidectomy home med: synthroid 100mcg PO daily TSH elevated, FT4 normal. Monitor outpatient DM ISS Accuchecks CAD ASA 81mg PO daily Cardizem 30mg PO BID Metoprolol 5mg IVP q6h prn Cardio consulted GI/DVT ppx Lovenox - transition to coumadin - 7.5 mg PO daily Diet: Regular soft diet, 6 small meals Case Discussed with Dr. Morales. Salud Rowe, PGY1 <Gómez Morales - Last Filed: 07/13/17 16:10> Objective - Vital Signs/Intake and Output Vital Signs (last 24 hours): Temp Pulse Resp BP Pulse Ox 97.7 F 83 20 105/69 99 07/13/17 07:42 07/13/17 14:00 07/13/17 07:42 07/13/17 09:55 07/13/17 07:42 Intake and Output: 07/13/17 07/13/17 06:59 18:59 Intake Total 120 840 Output Total 725 Balance -605 840 - Medications Medications: Current Medications Aspirin (Ecotrin) 81 mg PO DAILY [facility] Last Admin: 07/13/17 09:55 Dose: 81 mg Diltiazem HCl (Cardizem) 30 mg PO BID [facility] Last Admin: 07/13/17 09:55 Dose: 30 mg Enoxaparin Sodium (Lovenox) 70 mg SC Q12H [facility] PRN Reason: Protocol Last Admin: 07/13/17 08:13 Dose: 70 mg Piperacillin Sod/Tazobactam Sod (Zosyn 3.375 In Ns 100ml) 100 mls @ 200 mls/hr IVPB Q6 [facility] PRN Reason: Protocol Last Admin: 07/13/17 13:03 Dose: 200 mls/hr Insulin Human Regular (Humulin R Low) 0 units SC ACHS [facility] PRN Reason: Protocol Last Admin: 07/13/17 11:24 Dose: Not Given Levothyroxine Sodium (Synthroid) 100 mcg PO DAILY [facility] Last Admin: 07/13/17 09:55 Dose: 100 mcg Metoprolol Tartrate (Lopressor) 5 mg IVP Q6 PR[facility] PRN Reason: Heart rate Morphine Sulfate (Morphine) 4 mg IVP Q6H [facility] Last Admin: 07/13/17 14:40 Dose: Not Given Polyethylene Glycol (Miralax) 17 gm PO BID [facility] Last Admin: 07/13/17 09:55 Dose: 17 gm Senna/Docusate Sodium (Senokot S 50 Mg-8.6 Mg) 1 tab PO BID [facility] Last Admin: 07/13/17 09:55 Dose: 1 tab Warfarin Sodium (Coumadin) 7.5 mg PO 1800 [facility] PRN Reason: Protocol Last Admin: 07/12/17 17:24 Dose: 7.5 mg - Labs Labs: 07/13/17 06:00 07/13/17 06:00 PT 13.0 SECONDS (9.4-12.5) H 07/13/17 08:20 INR 1.13 (0.93-1.08) H 07/13/17 08:20 APTT 26.6 Seconds (25.1-36.5) 07/13/17 08:20 Attending/Attestation - Attestation I have personally seen and examined this patient.: Yes I have fully participated in the care of the patient.: Yes I have reviewed all pertinent clinical information, including history, physical exam and plan: Yes Notes (Text): 07/13/17 16:08 attending note; Patient seen and examined with resident. Patient is a 72 year old male with past medical history of cholangiocarcinoma with liver mets, hypertension, diabetes, CAD,and intrahepatic ductal dilatation s/p biliary drain placement presented with abdominal pain. Found to have ascites and right-sided pleural effusion. patient also has consolidations on the right side. currently on IV Zosyn. Patient is currently afebrile and nontoxic. ID evaluation appreciated. status post paracentesis/thoracentesis. Ascitic fluid culture is negative so far. Cytology results pending. Biliary drain fluid is positive for Escherichia coli. Constipation; resolved with enema. Continue MiraLAX. abdominal pain resolved. Tolerating liquid diet. advance to regular diet. pain management;. Currently on IV Morphine. Bilateral lower extremity DVT. Started on subcutaneous Lovenox. Started on Coumadin. INR is 1.13. Case discussed with oncology in detail. Possible discharge home once INR is therapeutic. Patient will follow-up with [facility] hepatology clinic. Back pain; lumbosacral spine CT is negative for metastatic disease. PT evaluation requested. prognosis is poor.
[2017-07-13] MEDS ORDERED: Potassium Chloride 20 mEq ER Tab PO ONE (16:00)
[2017-07-13] MEDS: Morphine 4 mg/ml ISec IVP PRN (16:51)
--- NOTE | 2017-07-13 18:22 | CP.PCM.PN ---
Subjective - Date & Time of Evaluation Date of Evaluation: 07/13/17 Time of Evaluation: 15:30 - Subjective Subjective: Infectious Disease Follow Up: July 13, 2017 72 khmer speaking Mac[place] male with a PMHx of cholangiocarcinoma with liver mets, hypertension, diabetes, CAD s/p stents, obstructive jaundice, and intrahepatic ducal dilatation s/p biliary drain placement, presents to the emergency department for 8 days of constipation, worsening abdominal distension and tenderness specifically on the left quadrants. Patient admitted to constipation upon admission for approximately a week however was able to have a small bm this morning. Poor PO intake for one day prior to admission. CT abdomen demonstrated increased ascites and abdominal distention, and right pleural effusion with underlying PNA. Patient was seen and examined at bedside. Patient stating now that his abdominal pain has improved. History of lower extremity swelling and tenderness. Patient denies fever, chills, shortness of breath, chest pains, abdominal pains, nausea, vomiting, diarrhea, dysuria. He is awaiting IR evaluation for paracentesis/thoracentesis. On Ceftriaxone and Azithromycin for antibiotic coverage. S/P Thoracentesis and Paracentesis. 5 L removed in total. Noted that bile fluid was sent for culture. Unclear if any significance. Bile fluid often contains aerobic gram negative bacilli that can be grown out on cultures. A positive bile culture would not have any significance depending of the clinical picture of the patient especially relating to the GI issues. Growth of E. coli and Stenotrophomonas Maltophilia. Common organisms in bile duct fluid and GI tract. Would consider these cultures to be same as colonization and would not base treatment decisions on this culture. The patient is breathing better since thoracentesis and paracentesis. His biggest complaint is of back pain right now. Objective - Vital Signs/Intake and Output Vital Signs (last 24 hours): Temp Pulse Resp BP Pulse Ox 98.1 F 94 H 20 103/63 97 07/13/17 17:21 07/13/17 17:21 07/13/17 17:21 07/13/17 17:21 07/13/17 17:21 Intake and Output: 07/13/17 07/13/17 06:59 18:59 Intake Total 120 840 Output Total 725 Balance -605 840 - Medications Medications: Current Medications Aspirin (Ecotrin) 81 mg PO DAILY [facility] Last Admin: 07/13/17 09:55 Dose: 81 mg Diltiazem HCl (Cardizem) 30 mg PO BID [facility] Last Admin: 07/13/17 17:21 Dose: 30 mg Enoxaparin Sodium (Lovenox) 70 mg SC Q12H [facility] PRN Reason: Protocol Last Admin: 07/13/17 08:13 Dose: 70 mg Piperacillin Sod/Tazobactam Sod (Zosyn 3.375 In Ns 100ml) 100 mls @ 200 mls/hr IVPB Q6 [facility] PRN Reason: Protocol Last Admin: 07/13/17 17:18 Dose: 200 mls/hr Insulin Human Regular (Humulin R Low) 0 units SC ACHS [facility] PRN Reason: Protocol Last Admin: 07/13/17 16:30 Dose: Not Given Levothyroxine Sodium (Synthroid) 100 mcg PO DAILY [facility] Last Admin: 07/13/17 09:55 Dose: 100 mcg Metoprolol Tartrate (Lopressor) 5 mg IVP Q6 [facility] PRN Reason: Heart rate Morphine Sulfate (Morphine) 4 mg IVP Q6H [facility] Last Admin: 07/13/17 14:40 Dose: Not Given Morphine Sulfate (Morphine) 4 mg IVP Q3 PRN PRN Reason: Pain, severe (8-10) Last Admin: 07/13/17 16:51 Dose: 4 mg Polyethylene Glycol (Miralax) 17 gm PO BID [facility] Last Admin: 07/13/17 17:30 Dose: Not Given Senna/Docusate Sodium (Senokot S 50 Mg-8.6 Mg) 1 tab PO BID [facility] Last Admin: 07/13/17 17:30 Dose: Not Given Warfarin Sodium (Coumadin) 7.5 mg PO 1800 [facility] PRN Reason: Protocol Last Admin: 07/13/17 17:21 Dose: 7.5 mg - Labs Labs: 07/13/17 06:00 07/13/17 06:00 PT 13.0 SECONDS (9.4-12.5) H 07/13/17 08:20 INR 1.13 (0.93-1.08) H 07/13/17 08:20 APTT 26.6 Seconds (25.1-36.5) 07/13/17 08:20 - Constitutional Appears: Non-toxic, No Acute Distress, Chronically Ill - Head Exam Head Exam: ATRAUMATIC, NORMOCEPHALIC - Eye Exam Eye Exam: EOMI, PERRL Pupil Exam: NORMAL ACCOMODATION, PERRL - ENT Exam ENT Exam: Mucous Membranes Moist, Normal External Ear Exam, TM's Normal Bilaterally - Neck Exam Neck Exam: Full ROM, Normal Inspection - Respiratory Exam Respiratory Exam: Clear to Ausculation Bilateral, NORMAL BREATHING PATTERN. absent: Rales, Rhonchi, Wheezes - Cardiovascular Exam Cardiovascular Exam: REGULAR RHYTHM, RRR, +S1, +S2 - GI/Abdominal Exam GI & Abdominal Exam: Distended, Soft Additional comments: Ascites - s/p paracentesis, there is reduction of the abdominal distension. - Extremities Exam Extremities Exam: Joint Swelling, Pedal Edema Additional comments: +2-3 edema - Neurological Exam Neurological Exam: Alert, Awake, CN II-XII Intact, Oriented x3 - Psychiatric Exam Psychiatric exam: Normal Affect, Normal Mood - Skin Skin Exam: Intact, Normal Color Assessment and Plan - Assessment and Plan (Free Text) Assessment: 72 yo [place] male with history of cholangiocarcinoma with liver metastasis being currently treated with Gemcitabin and [place]. He is currently being evaluated for Ytterium treatment. Awaiting IR evaluation. No leukocytosis. Supportive care. Procalcitonin of 1.6... this is of unclear significance given cholangiocarcinoma. Given that the procalcitonin was normal earlier in the month, the current procalcitonin level would support that an infective process may be present. Monitor procalcitonin levels. The patient is on Rocephin and Azithromycin. May need to expand antibiotic coverage further with Cefepime IV however, Zosyn has better anaerobic coverage. Fitzpatrick cultures pending. Trend procalcitonin levels. Down to 0.40 now. Unclear why Bile fluid sent for culture. Presence of gram negative bacilli can be normal from bile fluid. E. coli and Stenotrophomonas are normal bacteria in GI tract. Case discussed with medical team. Extensive discussion with patient's son. Supportive care. Thank you for allowing me to participate in the care of the patient, we will follow with you.
[2017-07-13] MEDS ORDERED: Sucralfate 1 gm/10 ml Oral Susp UD PO STA (20:05)
[2017-07-14] MEDS: Morphine 4 mg/ml ISec IVP SCH ×4 (02:10→18:46)
[2017-07-14] MEDS: Morphine 4 mg/ml ISec IVP PRN (03:12)
[2017-07-14 07:05] LABS: BASO # 0.07 K/mm3 (0.0-2.0); BASO % 0.4 % (0.0-3.0); EOS # 0.2 (0.0-0.7); EOS % 1.1 % (1.5-5.0); GRAN # 14.83 (1.4-6.5); GRAN % 75.8 % (50.0-68.0); HEMOGLOBIN 9.8 g/dL (14.0-18.0); LYMPH # 2.3 (1.2-3.4); LYMPH % 11.6 % (22.0-35.0); MEAN CELL VOLUME 90.9 fl (80.0-105.0); MEAN CORPUSCULAR HEMOGLOBIN 29.8 pg (25.0-35.0); MEAN CORPUSCULAR HGB CONC 32.8 g/dl (31.0-37.0); MEAN PLATELET VOLUME 10.1 fl (7.0-11.0); MONO # 2.2 (0.1-0.6); MONO % 11.1 % (1.0-6.0); RBC 3.29 10^6/uL (3.5-6.1); RED CELL DISTRIBUTION WIDTH 16.3 % (11.5-14.5); WHITE BLOOD COUNT 19.5 10^3/ul (4.5-11.0)
[2017-07-14 07:14] LABS: INR 1.65 (0.93-1.08); PARTIAL THROMBOPLASTIN TIME 28.9 Seconds (25.1-36.5); PROTHROMBIN TIME 19.2 SECONDS (9.4-12.5)
[2017-07-14 07:48] LABS: ALB/GLOB RATIO 0.8 (1.1-1.8); ALBUMIN 2.3 g/dL (3.0-4.8); ALT/SGPT 32 U/L (7-56); AST/SGOT 34 U/L (17-59); BLOOD UREA NITROGEN 8 mg/dL (7-21); CALCIUM 7.8 mg/dL (8.4-10.5); GFR AFRICAN-AMERICAN > 60; GFR NON-AFRICAN AMERICAN > 60
--- NOTE | 2017-07-14 08:02 | CP.PCM.PN ---
Subjective - Date & Time of Evaluation Date of Evaluation: 07/14/17 Time of Evaluation: 14:19 - Subjective Subjective: Heme-Onc Progress note for Dr. Headley Patient seen and examined OOB to chair this AM. Nursing reported no acute events overnight. Patient admitted to some reflux in the AM and slight back pain but denied acute complaints of fever, chills, headache, dizziness, chest pain, palpitations, SOB, cough, abd pain, nausea, vomiting, bowel/bladder complaints, pain/swelling in his legs bilaterally. Patient is tolerating PO diet and working with PT. Objective - Vital Signs/Intake and Output Vital Signs (last 24 hours): Temp Pulse Resp BP Pulse Ox 97.9 F 82 20 117/68 97 07/14/17 07:56 07/14/17 07:56 07/14/17 07:56 07/14/17 07:56 07/14/17 07:56 Intake and Output: 07/14/17 07/14/17 06:59 18:59 Intake Total 200 Output Total 600 Balance -400 - Medications Medications: Current Medications Aspirin (Ecotrin) 81 mg PO DAILY [facility] Last Admin: 07/13/17 09:55 Dose: 81 mg Diltiazem HCl (Cardizem) 30 mg PO BID [facility] Last Admin: 07/13/17 17:21 Dose: 30 mg Enoxaparin Sodium (Lovenox) 70 mg SC Q12H [facility] PRN Reason: Protocol Last Admin: 07/13/17 08:13 Dose: 70 mg Insulin Human Regular (Humulin R Low) 0 units SC ACHS [facility] PRN Reason: Protocol Last Admin: 07/13/17 16:30 Dose: Not Given Levothyroxine Sodium (Synthroid) 100 mcg PO DAILY [facility] Last Admin: 07/13/17 09:55 Dose: 100 mcg Metoprolol Tartrate (Lopressor) 5 mg IVP Q6 PRN PRN Reason: Heart rate Morphine Sulfate (Morphine) 4 mg IVP Q6H [facility] Last Admin: 07/14/17 02:10 Dose: Not Given Morphine Sulfate (Morphine) 4 mg IVP Q3 PRN PRN Reason: Pain, severe (8-10) Last Admin: 07/14/17 03:12 Dose: 4 mg Polyethylene Glycol (Miralax) 17 gm PO BID [facility] Last Admin: 07/13/17 17:30 Dose: Not Given Senna/Docusate Sodium (Senokot S 50 Mg-8.6 Mg) 1 tab PO BID [facility] Last Admin: 07/13/17 17:30 Dose: Not Given Sucralfate (Carafate Oral Susp) 1 gm PO BID [facility] Warfarin Sodium (Coumadin) 7.5 mg PO 1800 [facility] PRN Reason: Protocol Last Admin: 07/13/17 17:21 Dose: 7.5 mg - Labs Labs: 07/14/17 06:45 07/14/17 06:45 PT 19.2 SECONDS (9.4-12.5) H 07/14/17 06:45 INR 1.65 (0.93-1.08) H 07/14/17 06:45 APTT 28.9 Seconds (25.1-36.5) 07/14/17 06:45 - Constitutional Appears: No Acute Distress, Chronically Ill - Head Exam Head Exam: ATRAUMATIC, NORMAL INSPECTION, NORMOCEPHALIC - Eye Exam Eye Exam: EOMI, Normal appearance, PERRL. absent: Conjunctival injection, Scleral icterus - ENT Exam ENT Exam: Mucous Membranes Moist - Respiratory Exam Respiratory Exam: Decreased Breath Sounds, NORMAL BREATHING PATTERN - Cardiovascular Exam Cardiovascular Exam: Tachycardia, +S1, +S2 - GI/Abdominal Exam GI & Abdominal Exam: Soft - Extremities Exam Extremities Exam: Pedal Edema - Neurological Exam Neurological Exam: Alert, Awake, CN II-XII Intact, Oriented x3 - Psychiatric Exam Psychiatric exam: Normal Affect, Normal Mood - Skin Skin Exam: Dry, Intact, Normal Color, Warm Assessment and Plan - Assessment and Plan (Free Text) Assessment: 72yo male with PMHx 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 Pt found to have large ascites. Patient is s/p paracentesis draining 3L [no growth, body fluid cell count (peritoneal fluid) - 100 (netro 71.4; Lymph 28.6), fluid studies pending] and thoracentesis draining 2L (fluid studies pending). Bile fluid culture grew E. Coli (goetz sensitive) and Stenotrophomonas Maltophilia- taken from external drain an no need to treat as per ID. Patient on empiric abx for SBP and diuretics at home with questionable compliance. Pt found to have b/l DVT, on therapeutic lovenox bridging to coumadin. INR 1.65 this AM. CTA negative for PE. Pain well controlled on current regimen. Patient has an appointment with Dr. Guerra on . Continue aggressive bowel regimen. PT/OT/OOB. Continue management as per primary Discussed with Dr. Kayode Rebolledo PGY2
[2017-07-14] MEDS: Insulin Reg-LOW-Coverage SC SCH ×4 (08:30→21:29)
[2017-07-14] MEDS: POLYETHYLENE GLYCOL 3350 17 GM/Dose PACKET PO SCH ×2 (09:16→17:36)
[2017-07-14] MEDS: Sucralfate 1 gm/10 ml Oral Susp UD PO SCH ×2 (09:17→17:37)
[2017-07-14] MEDS: Docusate-Senna 50 mg-8.6 mg Tab PO SCH ×2 (09:18→17:36)
[2017-07-14] MEDS: Enoxaparin 80 mg Syringe SC SCH ×2 (09:18→21:29)
[2017-07-14] MEDS: Levothyroxine 100 MCG TAB PO SCH (09:18)
[2017-07-14] MEDS: Piperacillin/Tazobact 3.375 gm 100 ML IVPB SCH ×2 (11:36→17:42)
[2017-07-14] MEDS: Alum-Mag Hydrox-Simethicone Susp (30 mL) PO SCH ×3 (11:38→21:29)
--- NOTE | 2017-07-14 14:36 | CP.PCM.PN ---
<Salud Rowe - Last Filed: 07/14/17 16:02> Subjective - Date & Time of Evaluation Date of Evaluation: 07/14/17 Time of Evaluation: 14:34 - Subjective Subjective: Salud Rowe, PGY1, Progress Note for Dr Crump: Patient seen and examined at bedside. No acute events overnight. Pt denies back pain, abdominal pain, cp, sob, cough. States that he feels well. Objective - Vital Signs/Intake and Output Vital Signs (last 24 hours): Temp Pulse Resp BP Pulse Ox 97.9 F 106 H 20 117/68 97 07/14/17 07:56 07/14/17 10:00 07/14/17 07:56 07/14/17 11:36 07/14/17 07:56 Intake and Output: 07/14/17 07/14/17 06:59 18:59 Intake Total 200 Output Total 600 Balance -400 - Medications Medications: Current Medications Al Hydrox/Mg Hydrox/Simethicone (Maalox Plus 30 Ml) 30 ml PO Q4 [facility] Last Admin: 07/14/17 11:38 Dose: 30 ml Aspirin (Ecotrin) 81 mg PO DAILY [facility] Last Admin: 07/14/17 09:18 Dose: 81 mg Diltiazem HCl (Cardizem) 30 mg PO BID [facility] Last Admin: 07/14/17 09:17 Dose: 30 mg Enoxaparin Sodium (Lovenox) 70 mg SC Q12H [facility] PRN Reason: Protocol Last Admin: 07/14/17 09:18 Dose: 70 mg Furosemide (Lasix) 20 mg PO Q48H [facility] Last Admin: 07/14/17 11:36 Dose: 20 mg Piperacillin Sod/Tazobactam Sod (Zosyn 3.375 In Ns 100ml) 100 mls @ 200 mls/hr IVPB Q6H [facility] PRN Reason: Protocol Stop: 07/14/17 17:44 Last Admin: 07/14/17 11:36 Dose: 200 mls/hr Insulin Human Regular (Humulin R Low) 0 units SC ACHS [facility]Y PRN Reason: Protocol Last Admin: 07/14/17 13:03 Dose: Not Given Levothyroxine Sodium (Synthroid) 100 mcg PO DAILY [facility] Last Admin: 07/14/17 09:18 Dose: 100 mcg Metoprolol Tartrate (Lopressor) 5 mg IVP Q6 PRN PRN Reason: Heart rate Morphine Sulfate (Morphine) 4 mg IVP Q6H [facility] Last Admin: 07/14/17 09:27 Dose: Not Given Morphine Sulfate (Morphine) 4 mg IVP Q3 PRN PRN Reason: Pain, severe (8-10) Last Admin: 07/14/17 03:12 Dose: 4 mg Polyethylene Glycol (Miralax) 17 gm PO BID [facility] Last Admin: 07/14/17 09:16 Dose: 17 gm Senna/Docusate Sodium (Senokot S 50 Mg-8.6 Mg) 1 tab PO BID [facility] Last Admin: 07/14/17 09:18 Dose: 1 tab Spironolactone (Aldactone) 12.5 mg PO DAILY [facility] Sucralfate (Carafate Oral Susp) 1 gm PO BID [facility] Last Admin: 07/14/17 09:17 Dose: 1 gm Warfarin Sodium (Coumadin) 10 mg PO 1800 [facility] PRN Reason: Protocol - Labs Labs: 07/14/17 06:45 07/14/17 06:45 PT 19.2 SECONDS (9.4-12.5) H 07/14/17 06:45 INR 1.65 (0.93-1.08) H 07/14/17 06:45 APTT 28.9 Seconds (25.1-36.5) 07/14/17 06:45 - Additional Findings Additional findings: - Constitutional Appears: Non-toxic, Chronically Ill - Head Exam Head Exam: ATRAUMATIC, NORMOCEPHALIC - Eye Exam Eye Exam: EOMI, PERRL. absent: Conjunctival injection, Nystagmus, Scleral icterus Pupil Exam: NORMAL ACCOMODATION, PERRL. absent: Fixed, Irregular, Unequal - ENT Exam ENT Exam: Mucous Membranes Moist - Neck Exam Neck Exam: Full ROM - Respiratory Exam Respiratory Exam: Decreased Breath Sounds - Cardiovascular Exam Cardiovascular Exam: RRR, +S1, +S2. absent: Murmur - GI/Abdominal Exam GI & Abdominal Exam: Soft, Normal Bowel Sounds. absent: Distended, Firm, Guarding, Rigid, Tenderness, Mass, Organomegaly - Extremities Exam Extremities Exam: Pedal Edema. absent: Calf Tenderness - Back Exam Back Exam: NORMAL INSPECTION - Neurological Exam Neurological Exam: Alert, Awake, Oriented x3 - Psychiatric Exam Psychiatric exam: Normal Affect, Normal Mood - Skin Skin Exam: Dry, Normal Color, Warm Assessment and Plan - Assessment and Plan (Free Text) Assessment: 72 year old male with recent diagnosis of cholangiocarcinoma with metastasis to the liver s/p percutaneous biliary stent (internal and external) by IR - currently on chemotherapy with Dr. Headley on Gemcitabin, HTN, hypothryoidism s/ p thryoidectomy, DM2, CAD s/p stent who presented to the ED for worsening abdominal pain and constipation, s/p abd paracentesis 3L and thoracentesis 2L, awaiting ascitic fluid culture results: Abd pain/distention in setting of stage 4 cholangiocarcinoma on chemo (2 rounds) Zosyn Morphine 4mg IVP q6h nancy Granix 480mcg SC daily (total of 7 doses, last dose on 07/15) procalc 1.60, downtrended to 0.4. blood cx (03/13) NTD urine cx - no growth bile fluid cx - E. Coli (goetz sensitive) and Stenotrophomonas Maltophilia (no sensitivities yet) - taken from external drain, no need for treatment as per ID. s/p paracentesis 07/10: 3L drained * no growth * body fluid cell count (peritoneal fluid) - 100 (netro 71.4; Lymph 28.6) * fluid studies pending s/p thoracenesis 07/10: 2L drained * fluid studies pending Lasix and aldactone ID consulted. appreciate recs. GI consulted - no intervention, [facility] IR on board. Will discuss the need to possibly remove external drain prior to discharge. Surgery consulted- no sx intervention at this time, bowel regimen Onc consulted Lumbar Back Pain - 2/2 degenerative disease, ruled out mets Lumbar Spine CT w/o 07/12: No evidence of suspicious lytic or blastic lesions within the lumbosacral spine or visualized lower upper thoracic segments. Large right-sided effusion. Abdominal ascites. In situ percutaneous transhepatic biliary stent. Morphine 4mg IVP q6h nancy continue to monitor LE edema 2/2 acute DVT Duplex U/S - Focal, localized bilateral DVT at the common femoral vein bifurcations CTA neg for PE Lovenox 70mg SC q12h - bridging to Coumadin. monitor daily INR until therapeutic. Pleural effusion/consolidation Zosyn 3.375g IVPB q6h CTA 07/09- 1. Large right and trace left pleural effusion. 2. Right lower lobe right middle lobe , left basilar and lingular nonspecific infiltrates and consolidation are present, consistent with atelectasis or pneumonia. 3. No CT evidence for pulmonary embolus. The segmental and subsegmental branch pulmonary arteries are degraded by motion artifact. Thoracentesis - drained 2L NC Encourage incentive spirometer use ECHO 07/09- EF ~ 56%, mild septal hypokinesis, mild MR, mild to mod pulmonary HTN Fluids studies pending ID consulted Cardio consulted Constipation Colace Sennakot Miralax Monitor Hypokalemia K 3.5 repleted Continue monitor Hypothyroidism Hx of thyroidectomy home med: synthroid 100mcg PO daily TSH elevated, FT4 normal. Monitor outpatient DM ISS Accuchecks CAD ASA 81mg PO daily Cardizem 30mg PO BID Metoprolol 5mg IVP q6h prn Cardio consulted GI/DVT ppx Lovenox - transition to coumadin - increased to 10 mg PO daily Diet: Regular soft diet, 6 small meals Case Discussed with Dr. Crump. Salud Rowe, PGY1 <Ricardo Crump - Last Filed: 07/15/17 17:19> Objective - Vital Signs/Intake and Output Vital Signs (last 24 hours): Temp Pulse Resp BP Pulse Ox 97.6 F 94 H 20 106/60 98 07/15/17 06:00 07/15/17 13:27 07/15/17 06:00 07/15/17 09:21 07/15/17 06:00 Intake and Output: 07/15/17 07/15/17 06:59 18:59 Intake Total 540 480 Output Total 1 Balance 539 480 - Labs Labs: 07/15/17 06:15 07/15/17 06:15 PT 32.2 SECONDS (9.4-12.5) H 07/15/17 06:15 INR 2.74 (0.93-1.08) H 07/15/17 06:15 APTT 35.5 Seconds (25.1-36.5) 07/15/17 06:15 Attending/Attestation - Attestation I have personally seen and examined this patient.: Yes I have fully participated in the care of the patient.: Yes I have reviewed all pertinent clinical information, including history, physical exam and plan: Yes Notes (Text): 72 year old male with recent diagnosis of cholangiocarcinoma with metastasis to the liver s/p percutaneous biliary stent (internal and external) by IR - currently on chemotherapy with Dr. 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
--- NOTE | 2017-07-14 19:17 | CP.PCM.PN ---
Subjective - Date & Time of Evaluation Date of Evaluation: 07/14/17 Time of Evaluation: 17:00 - Subjective Subjective: Infectious Disease Follow Up: July 14, 2017 72 mohawk speaking [place] male with a PMHx of cholangiocarcinoma with liver mets, hypertension, diabetes, CAD s/p stents, obstructive jaundice, and intrahepatic ducal dilatation s/p biliary drain placement, presents to the emergency department for 8 days of constipation, worsening abdominal distension and tenderness specifically on the left quadrants. Patient admitted to constipation upon admission for approximately a week however was able to have a small bm this morning. Poor PO intake for one day prior to admission. CT abdomen demonstrated increased ascites and abdominal distention, and right pleural effusion with underlying PNA. Patient was seen and examined at bedside. Patient stating now that his abdominal pain has improved. History of lower extremity swelling and tenderness. Patient denies fever, chills, shortness of breath, chest pains, abdominal pains, nausea, vomiting, diarrhea, dysuria. He is awaiting IR evaluation for paracentesis/thoracentesis. On Ceftriaxone and Azithromycin for antibiotic coverage. S/P Thoracentesis and Paracentesis. 5 L removed in total. Noted that bile fluid was sent for culture. Unclear if any significance. Bile fluid often contains aerobic gram negative bacilli that can be grown out on cultures. A positive bile culture would not have any significance depending of the clinical picture of the patient especially relating to the GI issues. Growth of E. coli and Stenotrophomonas Maltophilia. Common organisms in bile duct fluid and GI tract. Would consider these cultures to be same as colonization and would not base treatment decisions on this culture. The patient is breathing better since thoracentesis and paracentesis. His biggest complaint is of back pain right now. No major current complaints at this time. Objective - Vital Signs/Intake and Output Vital Signs (last 24 hours): Temp Pulse Resp BP Pulse Ox 97.9 F 87 20 100/62 97 07/14/17 07:56 07/14/17 18:00 07/14/17 07:56 07/14/17 17:36 07/14/17 07:56 Intake and Output: 07/14/17 07/14/17 06:59 18:59 Intake Total 200 500 Output Total 600 150 Balance -400 350 - Medications Medications: Current Medications Al Hydrox/Mg Hydrox/Simethicone (Maalox Plus 30 Ml) 30 ml PO Q4 [facility] Last Admin: 07/14/17 17:36 Dose: Not Given Aspirin (Ecotrin) 81 mg PO DAILY [facility] Last Admin: 07/14/17 09:18 Dose: 81 mg Diltiazem HCl (Cardizem) 30 mg PO BID [facility] Last Admin: 07/14/17 17:36 Dose: 30 mg Enoxaparin Sodium (Lovenox) 70 mg SC Q12H [facility] PRN Reason: Protocol Last Admin: 07/14/17 09:18 Dose: 70 mg Furosemide (Lasix) 20 mg PO Q48H [facility] Last Admin: 07/14/17 11:36 Dose: 20 mg Insulin Human Regular (Humulin R Low) 0 units SC ACHS [facility] PRN Reason: Protocol Last Admin: 07/14/17 16:19 Dose: Not Given Levothyroxine Sodium (Synthroid) 100 mcg PO DAILY [facility] Last Admin: 07/14/17 09:18 Dose: 100 mcg Metoprolol Tartrate (Lopressor) 5 mg IVP Q6 PRN PRN Reason: Heart rate Morphine Sulfate (Morphine) 4 mg IVP Q6H [facility] Last Admin: 07/14/17 18:46 Dose: 4 mg Morphine Sulfate (Morphine) 4 mg IVP Q3 PRN PRN Reason: Pain, severe (8-10) Last Admin: 07/14/17 03:12 Dose: 4 mg Polyethylene Glycol (Miralax) 17 gm PO BID [facility] Last Admin: 07/14/17 17:36 Dose: Not Given Senna/Docusate Sodium (Senokot S 50 Mg-8.6 Mg) 1 tab PO BID [facility] Last Admin: 07/14/17 17:36 Dose: 1 tab Spironolactone (Aldactone) 12.5 mg PO DAILY [facility] Sucralfate (Carafate Oral Susp) 1 gm PO BID [facility] Last Admin: 07/14/17 17:37 Dose: 1 gm Warfarin Sodium (Coumadin) 10 mg PO 1800 [facility] PRN Reason: Protocol Last Admin: 07/14/17 17:36 Dose: 10 mg - Labs Labs: 07/14/17 06:45 07/14/17 06:45 PT 19.2 SECONDS (9.4-12.5) H 07/14/17 06:45 INR 1.65 (0.93-1.08) H 07/14/17 06:45 APTT 28.9 Seconds (25.1-36.5) 07/14/17 06:45 - Constitutional Appears: Non-toxic, No Acute Distress, Chronically Ill - Head Exam Head Exam: ATRAUMATIC, NORMOCEPHALIC - Eye Exam Eye Exam: EOMI, PERRL Pupil Exam: NORMAL ACCOMODATION, PERRL - ENT Exam ENT Exam: Mucous Membranes Moist, Normal External Ear Exam, TM's Normal Bilaterally - Neck Exam Neck Exam: Full ROM, Normal Inspection - Respiratory Exam Respiratory Exam: Clear to Ausculation Bilateral, NORMAL BREATHING PATTERN. absent: Rales, Rhonchi, Wheezes - Cardiovascular Exam Cardiovascular Exam: REGULAR RHYTHM, RRR, +S1, +S2 - GI/Abdominal Exam GI & Abdominal Exam: Distended, Soft, Normal Bowel Sounds. absent: Tenderness Additional comments: Ascites - s/p paracentesis, there is reduction of the abdominal distension. - Extremities Exam Extremities Exam: Joint Swelling, Pedal Edema Additional comments: +2-3 edema - Neurological Exam Neurological Exam: Alert, Awake, CN II-XII Intact, Oriented x3 - Psychiatric Exam Psychiatric exam: Normal Affect, Normal Mood - Skin Skin Exam: Intact, Normal Color Assessment and Plan - Assessment and Plan (Free Text) Assessment: 72 yo [place] male with history of cholangiocarcinoma with liver metastasis being currently treated with Gemcitabin and seneca. He is currently being evaluated for Ytterium treatment. Awaiting IR evaluation. No leukocytosis. Supportive care. Procalcitonin of 1.6... this is of unclear significance given cholangiocarcinoma. Given that the procalcitonin was normal earlier in the month, the current procalcitonin level would support that an infective process may be present. Monitor procalcitonin levels. The patient is on Rocephin and Azithromycin. May need to expand antibiotic coverage further with Cefepime IV however, Zosyn has better anaerobic coverage. Fitzpatrick cultures pending. Trend procalcitonin levels. Down to 0.40 now. Unclear why Bile fluid sent for culture. Presence of gram negative bacilli can be normal from bile fluid. E. coli and Stenotrophomonas are normal bacteria in GI tract. Case discussed with medical team. Extensive discussion with patient's son. Supportive care. Thank you for allowing me to participate in the care of the patient, we will follow with you.
[2017-07-14 23:00] LABS: LDH PERITONEAL FLUID 93 U/L (<63); TOTAL PROTEIN PERITONEAL FLUID <3.0 g/dL
[2017-07-15] MEDS: Alum-Mag Hydrox-Simethicone Susp (30 mL) PO SCH ×4 (00:30→12:25)
[2017-07-15] MEDS: Morphine 4 mg/ml ISec IVP SCH ×2 (02:00→08:12)
[2017-07-15] MEDS: Morphine 4 mg/ml ISec IVP PRN (06:08)
[2017-07-15 06:46] LABS: BASO # 0.05 K/mm3 (0.0-2.0); BASO % 0.2 % (0.0-3.0); EOS # 0.2 (0.0-0.7); EOS % 0.7 % (1.5-5.0); GRAN # 23.87 (1.4-6.5); GRAN % 81.2 % (50.0-68.0); HEMOGLOBIN 9.5 g/dL (14.0-18.0); LYMPH # 3.1 (1.2-3.4); LYMPH % 10.5 % (22.0-35.0); MEAN CELL VOLUME 90.6 fl (80.0-105.0); MEAN CORPUSCULAR HEMOGLOBIN 29.8 pg (25.0-35.0); MEAN CORPUSCULAR HGB CONC 32.9 g/dl (31.0-37.0); MEAN PLATELET VOLUME 10.2 fl (7.0-11.0); MONO # 2.2 (0.1-0.6); MONO % 7.4 % (1.0-6.0); RBC 3.19 10^6/uL (3.5-6.1); RED CELL DISTRIBUTION WIDTH 16.6 % (11.5-14.5)
[2017-07-15 06:55] LABS: WHITE BLOOD COUNT 29.4 10^3/ul (4.5-11.0)
[2017-07-15 06:56] LABS: INR 2.74 (0.93-1.08); PARTIAL THROMBOPLASTIN TIME 35.5 Seconds (25.1-36.5); PROTHROMBIN TIME 32.2 SECONDS (9.4-12.5)
[2017-07-15 07:16] VITALS: RESP 20; TEMP 97.6; O2SAT 98
[2017-07-15 07:21] LABS: ALB/GLOB RATIO 0.8 (1.1-1.8); ALBUMIN 2.2 g/dL (3.0-4.8); ALT/SGPT 39 U/L (7-56); AST/SGOT 48 U/L (17-59); BLOOD UREA NITROGEN 9 mg/dL (7-21); CALCIUM 7.7 mg/dL (8.4-10.5); GFR AFRICAN-AMERICAN > 60; GFR NON-AFRICAN AMERICAN > 60
[2017-07-15] MEDS: Insulin Reg-LOW-Coverage SC SCH ×2 (08:08→12:25)
[2017-07-15] MEDS: Levothyroxine 100 MCG TAB PO SCH (09:20)
[2017-07-15] MEDS: Sucralfate 1 gm/10 ml Oral Susp UD PO SCH (09:22)
[2017-07-15] MEDS: POLYETHYLENE GLYCOL 3350 17 GM/Dose PACKET PO SCH (09:22)
[2017-07-15] MEDS: Docusate-Senna 50 mg-8.6 mg Tab PO SCH (09:24)
[2017-07-15 09:26] VITALS: BP 106/60
--- NOTE | 2017-07-15 09:46 | RAD ---
HISTORY: elevated wbcs COMPARISON: Chest radiographs 07/11/2017. FINDINGS: LUNGS: Right MediPort unchanged in position. Underlying airspace disease not excluded the right base with none apparent at the left. PLEURA: [id number] right pleural effusion persists with trace left pleural effusion evident blunting the left costophrenic sulcus. No pneumothorax bilaterally. CARDIOVASCULAR: Normal. OSSEOUS STRUCTURES: No significant abnormalities. VISUALIZED UPPER ABDOMEN: Incidental biliary drainage catheter again identified in position. OTHER FINDINGS: None. IMPRESSION: Mild chronic right pleural effusion persists with underlying airspace disease not excluded at the right base. Trace left pleural effusion noted.
[2017-07-15] MEDS ORDERED: Piperacillin/Tazobact 3.375 gm 100 ML IVPB SCH (12:00)
[2017-07-15 13:27] VITALS: PULSE 94
--- NOTE | 2017-07-15 14:14 | CP.PCM.DIS ---
Provider - Provider Date of Admission: 07/08/17 20:12 Attending physician: Gómez Morales MD Primary care physician: Michael Headley MD Consults: Kayode Groves [facility] Deangelo meza Time Spent in preparation of Discharge (in minutes): 90 Diagnosis - Discharge Diagnosis (1) DVT (deep venous thrombosis) Status: Acute (2) Ascites Status: Acute (3) Pneumonia Status: Acute (4) Pleural effusion Status: Acute Hospital Course - Lab Results Lab Results: Micro Results 07/10/17 17:15 Ascitic Fluid Body Fluid Culture - Final No growth. 07/10/17 06:27 Bile Body Fluid Culture - Final Escherichia Coli Stenotrophomonas Maltophilia Most Recent Lab Values WBC 29.4 10^3/ul (4.5-11.0) H* D 07/15/17 06:15 RBC 3.19 10^6/uL (3.5-6.1) L 07/15/17 06:15 Hgb 9.5 g/dL (14.0-18.0) L 07/15/17 06:15 Hct 28.9 % (42.0-52.0) L 07/15/17 06:15 MCV 90.6 fl (80.0-105.0) 07/15/17 06:15 MCH 29.8 pg (25.0-35.0) 07/15/17 06:15 MCHC 32.9 g/dl (31.0-37.0) 07/15/17 06:15 RDW 16.6 % (11.5-14.5) H 07/15/17 06:15 Plt Count 320 10^3/uL (120.0-450.0) 07/15/17 06:15 MPV 10.2 fl (7.0-11.0) 07/15/17 06:15 Gran % 81.2 % (50.0-68.0) H 07/15/17 06:15 Lymph % (Auto) 10.5 % (22.0-35.0) L 07/15/17 06:15 [place] % (Auto) 7.4 % (1.0-6.0) H 07/15/17 06:15 Eos % (Auto) 0.7 % (1.5-5.0) L 07/15/17 06:15 Baso % (Auto) 0.2 % (0.0-3.0) 07/15/17 06:15 Gran # 23.87 (1.4-6.5) H 07/15/17 06:15 Lymph # (Auto) 3.1 (1.2-3.4) 07/15/17 06:15 [place] # (Auto) 2.2 (0.1-0.6) H 07/15/17 06:15 Eos # (Auto) 0.2 (0.0-0.7) 07/15/17 06:15 Baso # (Auto) 0.05 K/mm3 (0.0-2.0) 07/15/17 06:15 PT 32.2 SECONDS (9.4-12.5) H 07/15/17 06:15 INR 2.74 (0.93-1.08) H 07/15/17 06:15 APTT 35.5 Seconds (25.1-36.5) 07/15/17 06:15 D-Dimer, Quantitative 4615 ng/mL (0-243) H 07/09/17 02:15 pCO2 31 mm/Hg (35-45) L 07/09/17 02:40 pO2 77.0 mm/Hg (80-100) L 07/09/17 02:40 HCO3 27.1 mmol/L (21-28) 07/09/17 02:40 ABG pH 7.55 (7.35-7.45) H 07/09/17 02:40 ABG Total CO2 28.1 mmol.L (22-28) H 07/09/17 02:40 ABG O2 Saturation 98.4 % (95-98) H 07/09/17 02:40 ABG Base Excess 5.2 mmol/L (-2.0-3.0) H 07/09/17 02:40 ABG Potassium 2.9 mmol/L (3.6-5.2) L 07/09/17 02:40 VBG pH 7.49 (7.32-7.43) H 07/08/17 17:35 VBG pCO2 38.0 (40-60) L 07/08/17 17:35 VBG HCO3 29.0 mmol/l (21-28) H 07/08/17 17:35 VBG Total CO2 30.2 mmol.L (22-28) H 07/08/17 17:35 VBG O2 Sat (Calc) 92.0 % (40-65) H 07/08/17 17:35 VBG Base Excess 5.4 mmol/L (0.0-2.0) H 07/08/17 17:35 VBG Potassium 2.3 mmol/L (3.6-5.2) L* 07/08/17 17:35 Sodium 133.0 mmol/L (132-148) 07/09/17 02:40 Chloride 95.0 mmol/L (98-107) L 07/09/17 02:40 Glucose 168 mg/dl (75-110) H 07/09/17 02:40 Lactate 1.5 mmol/L (0.7-2.1) 07/09/17 02:40 FiO2 28.0 % 07/09/17 02:40 Sodium 139 mmol/L (132-148) 07/15/17 06:15 Potassium 3.8 mmol/L (3.6-5.0) 07/15/17 06:15 Chloride 105 mmol/L (98-107) 07/15/17 06:15 Carbon Dioxide 26 mmol/L (21-33) 07/15/17 06:15 Anion Gap 12 (10-20) 07/15/17 06:15 BUN 9 mg/dL (7-21) 07/15/17 06:15 Creatinine 0.9 mg/dl (0.8-1.5) 07/15/17 06:15 Est GFR ( Amer) > 60 07/15/17 06:15 Est GFR (Non-Af Amer) > 60 07/15/17 06:15 POC Glucose (mg/dL) 122 mg/dL (65-110) H 07/15/17 11:53 Random Glucose 111 mg/dL (70-110) H 07/15/17 06:15 Calcium 7.7 mg/dL (8.4-10.5) L 07/15/17 06:15 Phosphorus 2.7 mg/dL (2.5-4.5) 07/11/17 06:00 Magnesium 1.9 mg/dL (1.7-2.2) 07/11/17 06:00 Total Bilirubin 0.6 mg/dL (0.2-1.3) 07/15/17 06:15 AST 48 U/L (17-59) 07/15/17 06:15 ALT 39 U/L (7-56) 07/15/17 06:15 Alkaline Phosphatase 280 U/L (38-126) H D 07/15/17 06:15 Lactate Dehydrogenase 390 U/L (333-699) 07/08/17 17:35 Total Creatine Kinase 41 U/L (35-230) 07/08/17 17:35 Troponin I 0.02 ng/mL 07/09/17 01:10 NT-Pro-B Natriuret Pep 655 pg/mL (0-450) H 07/08/17 17:35 Total Protein 5.0 g/dL (5.8-8.3) L 07/15/17 06:15 Albumin 2.2 g/dL (3.0-4.8) L 07/15/17 06:15 Globulin 2.9 gm/dL 07/15/17 06:15 Albumin/Globulin Ratio 0.8 (1.1-1.8) L 07/15/17 06:15 Amylase 73 U/L (35-125) 07/09/17 01:10 Lipase 80 U/L (23-300) 07/09/17 01:10 Procalcitonin 0.38 NG/ML (0.19-0.49) 07/15/17 06:00 Free T4 1.00 ng/dL (0.78-2.19) 07/09/17 13:16 Total T3 0.44 ng/mL (0.97-1.69) L 07/09/17 13:16 TSH 3rd Generation 22.80 mIU/mL (0.46-4.68) H 07/11/17 06:00 Arterial Blood Potassium 2.9 mmol/L (3.6-5.2) L 07/09/17 02:40 Venous Blood Potassium 2.3 mmol/L (3.6-5.2) L* 07/08/17 17:35 Urine Color Yellow (YELLOW) 07/08/17 17:35 Urine Appearance Clear (CLEAR) 07/08/17 17:35 Urine pH 6.0 (4.7-8.0) 07/08/17 17:35 Ur Specific Ewen 1.015 (1.005-1.035) 07/08/17 17:35 Urine Protein Negative mg/dL (<30 mg/dL) 07/08/17 17:35 Urine Glucose (UA) Negative mg/dL (NEGATIVE) 07/08/17 17:35 Urine Ketones Negative mg/dL (NEGATIVE) 07/08/17 17:35 Urine Blood Negative (NEGATIVE) 07/08/17 17:35 Urine Nitrate Negative (NEGATIVE) 07/08/17 17:35 Urine Bilirubin Negative (NEGATIVE) 07/08/17 17:35 Urine Urobilinogen 0.2 E.U./dL (<1 E.U./dL) 07/08/17 17:35 Ur Leukocyte Esterase Negative Missy/uL (NEGATIVE) 07/08/17 17:35 Fluid Source Peritoneal/ascites 07/10/17 17:15 Fluid Appearance Cloudy (CLEAR) 07/10/17 17:15 Fluid WBC 2722.0 /uL (0.0-300.0) H 07/10/17 17:15 Fluid RBC 631.0 /uL (0.0-0.0) H 07/10/17 17:15 Fluid Tot Cell Count 100 (0-0) H 07/10/17 17:15 Fluid Neutrophils 71.4 % (0-0) H 07/10/17 17:15 Fluid Lymphocytes 28.6 % (0-0) H 07/10/17 17:15 Fld Monocyte/Macrophag TEST NOT PERFORMED 07/10/17 17:15 Fluid Comment Yellow 07/10/17 17:15 Peritoneal Tot Protein <3.0 g/dL 07/10/17 17:00 Peritoneal LDH 93 U/L (<63) H 07/10/17 17:00 - Hospital Course Hospital Course: 72 year old male with recent diagnosis of cholangiocarcinoma with metastasis to the liver s/p percutaneous biliary stent (internal and external) by IR - currently on chemotherapy with Dr. Headley on Gemcitabin, HTN, hypothryoidism s/ p thryoidectomy, DM2, CAD s/p stent who presented to the ED for worsening abdominal pain and constipation, found to have new ascites and right sided pleural effusion. Pt underwent abdominal paracentesis (with removal of 3L) and thoracentesis 2L. Fluid negative for SBP. Pt also found to have HCAP and bilateral lower extremity DVT. Biliary drain fluid positive for E coli, but deemed as part of normal biliary reema as per ID. Pt treated with IV antibiotics adequately for HCAP. Pt was also started on bowel regimen for his constipation, with daily regular bowel movements. For bilateral DVT, pt started on therapeutic Lovenox and bridged to Coumadin (as patient does not have insurance - pt was offered Lovenox as it is first line treatment). Once INR was therapeutic, pt was discharged home with reduced dose Coumadin with close follow up at [facility] clinic at [facility] [place] (made an appointment on Thursday for INR check). Pt also has a follow up appt with [facility] hepatology clinic tomorrow. During the hospital course, pt also complained of back pain, CT spine showed degenerative disease (neg for metastatic disease). Pt's biliary drain discussed with Dr Guerra, told to change it every 3-4 months with IR and do daily 10 ml flushes at home. Pt and son taught the technique at bedside by nurse. Pt ambulating well in hallway, room. Pt tolerating PO diet well. Further discharge instructions explained to patient, son - discussed with Dr Headley as well. Pt to follow up with [facility] on thursday - appointment made. For more detailed account of hospital course, please access the entire hospital course. Case seen and discussed with Dr Paredes. Salud Rowe, PGY1 Discharge Exam - Head Exam Head Exam: ATRAUMATIC, NORMOCEPHALIC - Eye Exam Eye Exam: EOMI, PERRL. absent: Conjunctival injection, Nystagmus, Scleral icterus Pupil Exam: NORMAL ACCOMODATION, PERRL. absent: Fixed, Irregular, Unequal - ENT Exam ENT Exam: Mucous Membranes Moist - Neck Exam Neck exam: Full Rom - Respiratory Exam Respiratory Exam: Decreased Breath Sounds, NORMAL BREATHING PATTERN. absent: Accessory Muscle Use, Chest Wall Tenderness, Respiratory Distress, Stridor - Cardiovascular Exam Cardiovascular Exam: RRR, +S1, +S2. absent: Systolic Murmur - GI/Abdominal Exam GI & Abdominal Exam: Firm, Normal Bowel Sounds, Soft. absent: Distended, Mass, Rebound, Tenderness - Extremities Exam Extremities exam: pedal edema - Back Exam Back exam: NORMAL INSPECTION - Neurological Exam Neurological exam: Alert, Oriented x3 - Psychiatric Exam Psychiatric exam: Normal Affect, Normal Mood - Skin Skin Exam: Dry, Normal Color, Warm Discharge Plan - Discharge Medications Prescriptions: Aluminum Hydroxide/Magnesium H [Maalox 30 ml] 30 ml PO Q4 30 Days udc Aspirin [Aspirin Chewable] 81 mg PO DAILY #30 chew Docusate [Colace] 100 mg PO BID PRN 30 Days cap PRN Reason: Constipation Furosemide [Lasix] 20 mg PO Q48H #30 tab oxyCODONE [oxyCODONE Immediate Release Tab] 5 mg PO Q6 3 Days tab Pantoprazole [Protonix EC Tab] 20 mg PO DAILY #30 ect Polyethylene Glycol 3350 [Miralax] 17 gm PO BID PRN 30 Days powd.pack PRN Reason: Constipation Spironolactone [Aldactone] 12.5 mg PO DAILY #30 tab Warfarin [Coumadin] 2 mg PO 1800 1 Days tab Warfarin [Coumadin] 4 mg PO 1800 #4 tab - Follow Up Plan Condition: SERIOUS Disposition: HOME/ ROUTINE Instructions: Deep Vein Thrombosis (Blood Clots in the Legs), Vitamin K Diet Additional Instructions: - Follow up with [facility] as scheduled tomorrow - Take Coumadin 4mg po daily for 4 days, then 2 mg on Thursday. please follow up with outpatient [facility] - ground floor for INR check this Thursday. Phone number: [phone] - External biliary drain - f/u with IR every 3-4 months to be changes. Flush daily with 10 cc flushes at home. discussed with son and patient. - Please follow up with Dr Headley - Take Lasix 20 mg daily and aldactone 12.5 mg twice a day. - Take other meds as prescribed. - Please follow up with Interventional radiologist in 3 months to evaluate the biliary stent. Referrals: [facility] at [facility] [place] [Outside] (Thursday ) Randy Guerra MD [Medical Doctor] - 07/16/17 Michael Headley MD [Primary Care Provider] - Duarte Guerra MD [Staff Provider] - (3 months)
--- NOTE | 2017-07-15 23:30 | CP.PCM.PN ---
Subjective - Date & Time of Evaluation Date of Evaluation: 07/15/17 Time of Evaluation: 14:00 - Subjective Subjective: Infectious Disease Follow Up: July 15, 2017 72 romanian speaking [place] male with a PMHx of cholangiocarcinoma with liver mets, hypertension, diabetes, CAD s/p stents, obstructive jaundice, and intrahepatic ducal dilatation s/p biliary drain placement, presents to the emergency department for 8 days of constipation, worsening abdominal distension and tenderness specifically on the left quadrants. Patient admitted to constipation upon admission for approximately a week however was able to have a small bm this morning. Poor PO intake for one day prior to admission. CT abdomen demonstrated increased ascites and abdominal distention, and right pleural effusion with underlying PNA. Patient was seen and examined at bedside. Patient stating now that his abdominal pain has improved. History of lower extremity swelling and tenderness. Patient denies fever, chills, shortness of breath, chest pains, abdominal pains, nausea, vomiting, diarrhea, dysuria. He is awaiting IR evaluation for paracentesis/thoracentesis. On Ceftriaxone and Azithromycin for antibiotic coverage. S/P Thoracentesis and Paracentesis. 5 L removed in total. Noted that bile fluid was sent for culture. Unclear if any significance. Bile fluid often contains aerobic gram negative bacilli that can be grown out on cultures. A positive bile culture would not have any significance depending of the clinical picture of the patient especially relating to the GI issues. Growth of E. coli and Stenotrophomonas Maltophilia. Common organisms in bile duct fluid and GI tract. Would consider these cultures to be same as colonization and would not base treatment decisions on this culture. The patient is breathing better since thoracentesis and paracentesis. His biggest complaint is of back pain right now. No major current complaints at this time. Objective - Vital Signs/Intake and Output Vital Signs (last 24 hours): Temp Pulse Resp BP Pulse Ox 97.6 F 94 H 20 106/60 98 07/15/17 06:00 07/15/17 13:27 07/15/17 06:00 07/15/17 09:21 07/15/17 06:00 Intake and Output: 07/15/17 07/16/17 18:59 06:59 Intake Total 480 Balance 480 - Labs Labs: 07/15/17 06:15 07/15/17 06:15 PT 32.2 SECONDS (9.4-12.5) H 06/06/18 06:15 INR 2.74 (0.93-1.08) H 07/15/17 06:15 APTT 35.5 Seconds (25.1-36.5) 07/15/17 06:15 - Constitutional Appears: Non-toxic, No Acute Distress, Chronically Ill - Head Exam Head Exam: ATRAUMATIC, NORMOCEPHALIC - Eye Exam Eye Exam: EOMI, PERRL Pupil Exam: NORMAL ACCOMODATION, PERRL - ENT Exam ENT Exam: Mucous Membranes Moist, Normal External Ear Exam, TM's Normal Bilaterally - Respiratory Exam Respiratory Exam: Clear to Ausculation Bilateral, NORMAL BREATHING PATTERN. absent: Rales, Rhonchi, Wheezes - Cardiovascular Exam Cardiovascular Exam: REGULAR RHYTHM, RRR, +S1, +S2 - GI/Abdominal Exam GI & Abdominal Exam: Distended, Soft, Normal Bowel Sounds. absent: Tenderness Additional comments: Ascites - s/p paracentesis, there is reduction of the abdominal distension. - Extremities Exam Extremities Exam: Joint Swelling, Pedal Edema Additional comments: +2-3 edema - Neurological Exam Neurological Exam: Alert, Awake, CN II-XII Intact, Oriented x3 - Psychiatric Exam Psychiatric exam: Normal Affect, Normal Mood - Skin Skin Exam: Intact, Normal Color Assessment and Plan - Assessment and Plan (Free Text) Assessment: 72 yo [place] male with history of cholangiocarcinoma with liver metastasis being currently treated with Gemcitabin and [place]. He is currently being evaluated for Ytterium treatment. Awaiting IR evaluation. No leukocytosis. Supportive care. Procalcitonin of 1.6... this is of unclear significance given cholangiocarcinoma. Given that the procalcitonin was normal earlier in the month, the current procalcitonin level would support that an infective process may be present. Monitor procalcitonin levels. The patient is on Rocephin and Azithromycin. May need to expand antibiotic coverage further with Cefepime IV however, Zosyn has better anaerobic coverage. Fitzpatrick cultures pending. Trend procalcitonin levels. Down to 0.40 now. Unclear why Bile fluid sent for culture. Presence of gram negative bacilli can be normal from bile fluid. E. coli and Stenotrophomonas are normal bacteria in GI tract. Case discussed with medical team. Extensive discussion with patient's son. Supportive care. Thank you for allowing me to participate in the care of the patient, we will follow with you.
== END 2017-07-15 15:32 | disposition home or self-care (01) | DRG 477 ==
LOC: ED 16:17 → ERH 20:12 → 3RNO 22:57
PROVIDERS: ADMIT Internal Medicine; ATTEND Internal Medicine
PROC: 5A09357 Assistance with Respiratory Ventilation, Less than 24 Consecutive Hours, Continuous Positive Airway Pressure (ICD-10-PCS; principal; 2017-07-09)
PROC: 0W993ZX Drainage of Right Pleural Cavity, Percutaneous Approach, Diagnostic (ICD-10-PCS; 2017-07-09)
PROC: 0W9G3ZX Drainage of Peritoneal Cavity, Percutaneous Approach, Diagnostic (ICD-10-PCS; 2017-07-10)
DX: J18.9 Pneumonia, unspecified organism (principal); K65.9 Peritonitis, unspecified; I82.413 Acute embolism and thrombosis of femoral vein, bilateral; C22.1 Intrahepatic bile duct carcinoma; C78.7 Secondary malignant neoplasm of liver and intrahepatic bile duct; J91.8 Pleural effusion in other conditions classified elsewhere; E87.6 Hypokalemia; R18.8 Other ascites; D69.6 Thrombocytopenia, unspecified; J98.11 Atelectasis; I27.20 Pulmonary hypertension, unspecified; I25.10 Atherosclerotic heart disease of native coronary artery without angina pectoris; I10 Essential (primary) hypertension; E89.0 Postprocedural hypothyroidism; E11.9 Type 2 diabetes mellitus without complications; I47.1 Supraventricular tachycardia; D64.9 Anemia, unspecified; M51.36 Other intervertebral disc degeneration, lumbar region; K59.00 Constipation, unspecified; Z79.891 Long term (current) use of opiate analgesic; Z87.891 Personal history of nicotine dependence; Z79.899 Other long term (current) drug therapy; Z95.5 Presence of coronary angioplasty implant and graft; Z79.82 Long term (current) use of aspirin

== ENCOUNTER 2017-07-23 05:38 | Inpatient (IN) | payer MEDICAID, SELFPAY ==
[2017-07-23 05:39] VITALS: PULSE 143; BMI 25.2
--- NOTE | 2017-07-23 05:58 | ED PDOC ---
Arrival/HPI - General Chief Complaint: Fever Time Seen by Provider: 07/23/17 05:47 Historian: Patient, Family (Son) - History of Present Illness Narrative History of Present Illness (Text): 07/23/17 05:58 Mark Lynch is a 72 year old male, whose past medical history includes cholangiocarcinoma with liver metasteses, subcapsular hematoma, DVT on anti- coagulation, hypertension, CAD with stents, who present the Emergency department status post near-syncopal episode. Son states patient was walking to the kitchen when patient slumped forward and caught himself against their counter. Son notes patient hit his head on the counter and patient states he felt near-syncopal during the incident. Son reports associated subjective fever , dizziness, and generalized weakness. Son notes patient has not had a bowel movement in 1 week and was recently underwent a paracentesis for ascites during his last hospital stay. Patient denies any chest pain, shortness of breath, abdominal pain,nausea, vomiting, headache, or any other complaints. Heme/Onc: Dr. Headley Symptom Onset: Sudden Symptom Course: Unchanged Activities at Onset: Light Context: Walking, Home Past Medical History - Provider Review Nursing Documentation Reviewed: Yes - Infectious Disease Hx of Infectious Diseases: None - Cardiac Hx Cardiac Disorders: Yes Hx Hypertension: Yes - Pulmonary Hx Respiratory Disorders: No - Neurological Hx Neurological Disorder: No - HEENT Hx HEENT Disorder: Yes - Renal Hx Renal Disorder: No - Endocrine/Metabolic Hx Diabetes Mellitus Type 2: Yes - Hematological/Oncological Hx Cancer: Yes Hx Chemotherapy: Yes - Integumentary Hx Dermatological Disorder: No - Musculoskeletal/Rheumatological Hx Musculoskeletal Disorders: Yes Hx Back Pain: Yes Hx Falls: No - Gastrointestinal Other/Comment: Biliary Drain placed one month ago 05/2017Liver cancer- Chemotherapy - Genitourinary/Gynecological Hx Prostate Problems: Yes - Psychiatric Hx Psychophysiologic Disorder: No Hx Substance Use: No - Surgical History Hx Cardiac Catheterization: Yes Hx Coronary Stent: Yes - Anesthesia Hx Anesthesia: Yes Hx Anesthesia Reactions: Yes Hx Malignant Hyperthermia: No Family/Social History - Physician Review Nursing Documentation Reviewed: Yes Family/Social History: Unknown Family HX Smoking Status: Former Smoker Hx Alcohol Use: No Hx Substance Use: No Allergies/Home Meds Allergies/Adverse Reactions: Allergies No Known Allergies Allergy (Verified 06/21/17 00:56) Home Medications: Home Meds Medication Instructions Recorded Confirmed Levothyroxine [Synthroid] 100 mcg PO DAILY 05/14/17 07/07/17 Home Med 30 mg PO DAILY 06/04/17 07/03/17 Zaroxolyn mg PO MON 07/03/17 Zaroxolyn mg PO WM 07/03/17 Review of Systems - Physician Review All systems were reviewed & negative as marked: Yes - Review of Systems Constitutional: Fevers Eyes: Normal ENT: Normal Respiratory: Normal. absent: SOB, Cough Cardiovascular: Normal. absent: Chest Pain Genitourinary Male: Normal Musculoskeletal: Normal Skin: Normal Neurological: Dizziness Endocrine: Normal Hemo/Lymphatic: Normal Psychiatric: Normal Physical Exam Vital Signs Reviewed: Yes Vital Signs Temp Pulse Resp BP Pulse Ox 07/23/17 06:35 96 H 17 103/58 L 97 07/23/17 06:02 102.7 F H 07/23/17 05:45 101.8 F H 112 H 20 106/65 91 L Temperature: Febrile Blood Pressure: Normal Pulse: Tachycardic Respiratory Rate: Normal Appearance: Positive for: Non-Toxic, Comfortable Pain Distress: None Mental Status: Positive for: Alert and Oriented X 3 - Systems Exam Head: Present: Atraumatic, Normocephalic Pupils: Present: PERRL Extroacular Muscles: Present: EOMI Conjunctiva: Present: Icteric Ears: Present: Normal, NORMAL TM, Normal Canal. No: Erythema, TM Bulging, Fluid , TM Perf Mouth: Present: Moist Mucous Membranes Pharnyx: Present: Normal. No: ERYTHEMA, EXUDATE, TONSILS ENLARGED, Peritonsilar Swelling, Uvular Deviation, Muffled/Hoarse Voice, Strider, Soft Palate/Uvular Edema Nose (External): Present: Atraumatic Nose (Internal): Present: Normal Inspection Neck: Present: Normal Range of Motion. No: Meningeal Signs, MIDLINE TENDERNESS , Paraspinal Tenderness Respiratory/Chest: Present: Good Air Exchange, Decreased Breath Sounds (right base), Rhonchi. No: Respiratory Distress, Accessory Muscle Use Cardiovascular: Present: Regular Rate and Rhythm, Normal S1, S2, Tachycardic. No: Murmurs Abdomen: Present: Distention (Distended and tympanic abdomen), Normal Bowel Sounds, Peritoneal Signs, Other (biliary drain in place). No: Tenderness Upper Extremity: Present: Normal Inspection. No: Cyanosis, Edema Lower Extremity: Present: Edema (2+ pitting edema) Neurological: Present: GCS=15, CN II-XII Intact, Speech Normal Skin: Present: Warm, Dry, Normal Color. No: Rashes Psychiatric: Present: Alert, Oriented x 3, Normal Insight, Normal Concentration Medical Decision Making ED Course and Treatment: 07/23/17 05:58 Impression: 72 year old male brought in for near-syncope, fever, dizziness, and generalized weakness. Plan: -- CT Head w/o contrast -- CT Abdomen and Pelvis -- EKG -- Chest X-Ray -- Labs, VBG, cardiac enzymes, blood cultures -- Urinalysis, urine cultures -- IV fluids -- Tylenol -- Reassess and disposition Progress Notes: Reviewed EKG, sinus tachycardia at 109 bpm. Inferior infarct. Anterolateral infarct. Non-specific ST/T wave changes. 07/23/17 06:42 Case endorsed to /pending labs/ct scan head/abdomen/reassess/final disposition - Lab Interpretations Lab Results: Lab Results 07/23/17 06:20: pO2 85 H, VBG pH 7.50 H, VBG pCO2 32.0 L, VBG HCO3 25.0, VBG Total CO2 26.0, VBG O2 Sat (Calc) 99.2 H, VBG Base Excess 2.4 H, VBG Potassium 2.6 L, Sodium 133.0, Chloride 103.0, Glucose 97, Lactate 1.3, FiO2 21.0, Venous Blood Potassium 2.6 L 07/23/17 06:20: PT 27.4 H, INR 2.34 H, APTT 32.2 - RAD Interpretation Narrative RAD Interpretations (Text): 07/23/17 06:51 CXR- Right pleural effusion Radiology Orders: 07/23/17 06:00 CHEST PORTABLE [RAD] Stat 07/23/17 06:10 ABD & PELVIS IV CONTRAST ONLY [CT] Stat HEAD W/O CONTRAST [CT] Stat Supervisor Show Operations: ED Physician - Medication Orders Current Medication Orders: Ceftriaxone Sodium (Rocephin 1 Gram Ivpb) 1 gm in 100 mls @ 200 mls/hr IV ONCE STA PRN Reason: Protocol Stop: 07/23/17 07:05 Last Admin: 07/23/17 06:48 Dose: 200 mls/hr eMAR Start Stop Document 07/23/17 06:48 CNR (Rec: 07/23/17 06:49 CNR [id number]) Intravenous Solution Start Date 07/23/17 Start Time 06:49 End Date 07/23/17 End time 07:19 Total Infusion Time 30 Azithromycin (Zithromax 500mg In Ns) 500 mg in 250 mls @ 166.667 mls/hr IV STAT STA PRN Reason: Protocol Stop: 07/23/17 08:05 Discontinued Medications Acetaminophen (Tylenol 650 Mg Supp) 650 mg RC STAT STA Stop: 07/23/17 06:04 Last Admin: 07/23/17 06:28 Dose: 650 mg Sodium Chloride (Sodium Chloride 0.9%) 1,000 mls @ 2,000 mls/hr IV .Q30M ONE Stop: 07/23/17 06:29 Last Admin: 07/23/17 06:28 Dose: 2,000 mls/hr eMAR Start Stop Document 07/23/17 06:28 CNR (Rec: 07/23/17 06:28 CNR [id number]) Intravenous Solution Start Date 07/23/17 Start Time 06:28 - Scribe Statement The provider has reviewed the documentation as recorded by the Scribe Tabitha Luong All medical record entries made by the Scribe were at my direction and personally dictated by me. I have reviewed the chart and agree that the record accurately reflects my personal performance of the history, physical exam, medical decision making, and the department course for this patient. I have also personally directed, reviewed, and agree with the discharge instructions and disposition. Disposition/Present on Arrival - Present on Arrival Any Indicators Present on Arrival: No History of DVT/PE: No History of Uncontrolled Diabetes: No Urinary Catheter: No History of Decub. Ulcer: No History Surgical Site Infection Following: None - Disposition Have Diagnosis and Disposition been Completed?: No Diagnosis: Fever, Ascites, Pneumonia, Pleural effusion, Near syncope Disposition Time: 07:00 Patient Problems: Current Active Problems Problem Status Onset Ascites Acute Fever Acute Near syncope Acute Pleural effusion Acute Pneumonia Acute Condition: STABLE Referrals: Michael Headley MD [Primary Care Provider] - Follow up with primary Forms: Plink (Malagasy)
[2017-07-23] MEDS ORDERED: Sodium Chloride 0.9% 1,000 ML IV ONE (06:00)
[2017-07-23] MEDS ORDERED: Azithromycin 500MG/NS 250ml 500 MG/250 ML BAG IV STA (06:36)
[2017-07-23] MEDS ORDERED: cefTRIAXone 1 gm 1 GM/100 ML BAG IV STA (06:36)
[2017-07-23 06:38] LABS: VENOUS BLOOD GAS BASE EXCESS 2.4 mmol/L (0.0-2.0); VENOUS BLOOD GAS PO2 85 mm/Hg (30-55)
[2017-07-23 06:45] LABS: GRAN # 8.41 (1.4-6.5); GRAN % 92.6 % (50.0-68.0); HEMOGLOBIN 9.9 g/dL (14.0-18.0); LYMPH # 0.4 (1.2-3.4); LYMPH % 4.2 % (22.0-35.0); MEAN CELL VOLUME 88.6 fl (80.0-105.0); MEAN CORPUSCULAR HEMOGLOBIN 29.6 pg (25.0-35.0); MEAN CORPUSCULAR HGB CONC 33.4 g/dl (31.0-37.0); MEAN PLATELET VOLUME 9.4 fl (7.0-11.0); MONO # 0.3 (0.1-0.6); MONO % 3.2 % (1.0-6.0); PLATELET COUNT 411 10^3/uL (120.0-450.0); RBC 3.34 10^6/uL (3.5-6.1); WHITE BLOOD COUNT 9.1 10^3/ul (4.5-11.0)
[2017-07-23 06:56] LABS: INR 2.34 (0.93-1.08); PARTIAL THROMBOPLASTIN TIME 32.2 Seconds (25.1-36.5); PROTHROMBIN TIME 27.4 SECONDS (9.4-12.5)
[2017-07-23 07:00] LABS: TROPONIN I 0.04 ng/mL
[2017-07-23 07:18] LABS: ALB/GLOB RATIO 0.8 (1.1-1.8); ALBUMIN 2.6 g/dL (3.0-4.8); ALT/SGPT 149 U/L (7-56); AST/SGOT 251 U/L (17-59); BLOOD UREA NITROGEN 19 mg/dL (7-21); CALCIUM 7.8 mg/dL (8.4-10.5); GFR AFRICAN-AMERICAN > 60; GFR NON-AFRICAN AMERICAN > 60
[2017-07-23] MEDS ORDERED: Iohexol 350 MG/100 ML VIAL ONE (07:43)
[2017-07-23] MEDS ORDERED: Piperacillin/Tazobact 3.375 gm 100 ML IVPB STA (07:48)
[2017-07-23] MEDS ORDERED: Morphine 4 mg/ml ISec IVP STA (08:07)
[2017-07-23 08:09] LABS: BAND 3 % (0-2); LYMPHOCYTE 4 % (22.0-35.0); MONOCYTE 1 % (1.0-6.0); NEUTROPHIL 92 % (50.0-70.0); PLATELET ESTIMATE NORMAL (NORMAL)
--- NOTE | 2017-07-23 08:19 | RAD ---
HISTORY: Sepsis Patient COMPARISON: 07/15/2017 FINDINGS: LUNGS: No active pulmonary disease. PLEURA: Small bilateral pleural effusion. No pneumothorax. CARDIOVASCULAR: Right central venous infusion port, unchanged. Normal heart size. No congestive change. OSSEOUS STRUCTURES: No significant abnormalities. VISUALIZED UPPER ABDOMEN: Normal. OTHER FINDINGS: None. IMPRESSION: Small bilateral pleural effusion.
--- NOTE | 2017-07-23 09:02 | CT ---
PROCEDURE: CT HEAD WITHOUT CONTRAST. HISTORY: injury/near syncope COMPARISON: None available. TECHNIQUE: Axial computed tomography images were obtained through the head/brain without intravenous contrast. Radiation dose: Total exam DLP = 854.21 mGy-cm. This CT exam was performed using one or more of the following dose reduction techniques: Automated exposure control, adjustment of the mA and/or kV according to patient size, and/or use of iterative reconstruction technique. FINDINGS: HEMORRHAGE: No intracranial hemorrhage. BRAIN: No mass effect or edema. Mild diffuse age-appropriate cerebral atrophy. Mild periventricular white matter lucency consistent with chronic microvascular ischemic change. No evidence of acute infarct. VENTRICLES: Unremarkable. No hydrocephalus. CALVARIUM: Unremarkable. PARANASAL SINUSES: Unremarkable as visualized. No significant inflammatory changes. MASTOID AIR CELLS: Unremarkable as visualized. No inflammatory changes. OTHER FINDINGS: None. IMPRESSION: No intracranial mass, hemorrhage or evidence of acute infarct. Mild chronic involutional change.
--- NOTE | 2017-07-23 09:11 | CT ---
PROCEDURE: CT Abdomen and Pelvis with contrast HISTORY: fever/abdominal distension COMPARISON: None. TECHNIQUE: Contrast dose: 100 mL Omnipaque 350 Radiation dose: Total exam DLP = 806.04 mGy-cm. This CT exam was performed using one or more of the following dose reduction techniques: Automated exposure control, adjustment of the mA and/or kV according to patient size, and/or use of iterative reconstruction technique. FINDINGS: LOWER THORAX: Moderate right and small left pleural effusion. Bilateral lower lobe compressive atelectasis. LIVER: Smooth contour. Normal size. Extensive intrahepatic biliary ductal dilatation. PTC catheter noted. Ill-defined 4.7 cm mass in the inferior right hepatic lobe, poorly appreciated on prior noncontrast CT. There is a peripheral somewhat flattened mass in the inferior right hepatic lobe, roughly 1.5 x 6.7 cm. Questionable mass versus subcapsular collection. No change from prior. 2.1 cm mass in the inferior right hepatic lobe. No other discrete mass identified. GALLBLADDER AND BILE DUCTS: Some status post cholecystectomy. PANCREAS: Unremarkable. No gross lesion or ductal dilatation. SPLEEN: Unremarkable. ADRENALS: Unremarkable. No mass. KIDNEYS AND URETERS: Left lower pole cortical cyst, 3.9 cm. No change. No calculus or hydronephrosis. VASCULATURE: Unremarkable. No aortic aneurysm. BOWEL: No evidence of bowel obstruction. APPENDIX: Not identified. PERITONEUM: Massive ascites. Suspected omental metastasis mid anterior abdomen (series 3, images 74 through 95. LYMPH NODES: Unremarkable. No enlarged lymph nodes. BLADDER: Unremarkable. REPRODUCTIVE: Unremarkable prostate BONES: No acute fracture. OTHER FINDINGS: None. IMPRESSION: Massive ascites. Probable omental metastasis. Hepatic neoplasm, multifocal. Questionable subcapsular collection inferior right hepatic lobe. See above. PTC catheter. Extensive intrahepatic biliary ductal dilatation. Bilateral pleural effusion and compressive atelectasis, right greater than left.
[2017-07-23] MEDS ORDERED: Potassium Chloride 40 mEq/30 ml LIQ UD PO ONE ×2 (11:07→13:00)
--- NOTE | 2017-07-23 12:07 | ED PDOC ---
Physical Exam Vital Signs Reviewed: Yes Vital Signs Temp Pulse Resp BP Pulse Ox 07/23/17 11:52 124 H 18 91/60 L 97 07/23/17 10:00 115 H 17 107/64 97 07/23/17 07:46 87 18 112/67 98 07/23/17 07:30 110 H 18 110/62 96 07/23/17 06:35 96 H 17 103/58 L 97 07/23/17 06:02 102.7 F H 07/23/17 05:45 101.8 F H 112 H 20 106/65 91 L Temperature: Febrile Blood Pressure: Normal Pulse: Tachycardic Respiratory Rate: Normal Appearance: Positive for: Ill-Appearing Pain Distress: Mild Mental Status: Positive for: Lethargic - Systems Exam Head: Present: Atraumatic, Normocephalic Extroacular Muscles: Present: EOMI Conjunctiva: Present: Icteric Mouth: Present: Dry Nose (Internal): Present: Normal Inspection Respiratory/Chest: Present: Good Air Exchange Cardiovascular: Present: Normal S1, S2 Abdomen: Present: Tenderness, Other (fluid wave present, distended, right intrabdominal catheter) Upper Extremity: Present: Normal Inspection Lower Extremity: Present: Normal Inspection Neurological: Present: Speech Normal Skin: Present: Warm, Dry Psychiatric: Present: Alert Medical Decision Making ED Course and Treatment: 07/23/17 12:02 Patient endorsed from overnight ED physician. Son is at bedside. Discussed goals of care and intent to admit patient for further management. POA is in agreement. Patient covered with zosyn in addition to rocpehin and azithromycin given overnight. In addition to blood culture and urine culture, a catheter tip culture was ordered. Potassium was repleted and serum magnesium was ordered. Patient case discussed with hospitalist team who has accepted patient for admission under med/surg status. 07/23/17 12:12 - Lab Interpretations Lab Results: 07/23/17 06:20 07/23/17 06:20 Lab Results 07/23/17 06:20: Sodium 131 L, Chloride 92 L, Potassium 3.0 L, Carbon Dioxide 29 , Anion Gap 13, BUN 19, Creatinine 0.8, Est GFR ( Amer) > 60, Est GFR ( Non-Af Amer) > 60, Random Glucose 113 H, Calcium 7.8 L, Phosphorus 2.4 L, Magnesium 1.8, Total Bilirubin 3.5 H, AST 251 H D, ALT 149 H, Alkaline Phosphatase 983 H D, Lactate Dehydrogenase 770 H, Total Creatine Kinase 94, Troponin I 0.04 D, Total Protein 5.9, Albumin 2.6 L, Globulin 3.3, Albumin/ Globulin Ratio 0.8 L 07/23/17 06:20: pO2 85 H, VBG pH 7.50 H, VBG pCO2 32.0 L, VBG HCO3 25.0, VBG Total CO2 26.0, VBG O2 Sat (Calc) 99.2 H, VBG Base Excess 2.4 H, VBG Potassium 2.6 L, Sodium 133.0, Chloride 103.0, Glucose 97, Lactate 1.3, FiO2 21.0, Venous Blood Potassium 2.6 L 07/23/17 06:20: PT 27.4 H, INR 2.34 H, APTT 32.2 07/23/17 06:20: WBC 9.1, RBC 3.34 L, Hgb 9.9 L, Hct 29.6 L, MCV 88.6, MCH 29.6, MCHC 33.4, RDW 18.0 H, Plt Count 411, MPV 9.4, Gran % 92.6 H, Lymph % (Auto) 4.2 L, [place] % (Auto) 3.2, Eos % (Auto) 0.0 L, Baso % (Auto) 0.0, Gran # 8.41 H, Lymph # (Auto) 0.4 L, [place] # (Auto) 0.3, Eos # (Auto) 0.0, Baso # (Auto) 0.00, Neutrophils % (Manual) 92 H, Band Neutrophils % 3 H, Lymphocytes % (Manual) 4 L , Monocytes % (Manual) 1, Platelet Evaluation Normal - RAD Interpretation Radiology Orders: 07/23/17 06:00 CHEST PORTABLE [RAD] Stat 07/23/17 06:10 ABD & PELVIS IV CONTRAST ONLY [CT] Stat HEAD W/O CONTRAST [CT] Stat - Medication Orders Current Medication Orders: Discontinued Medications Acetaminophen (Tylenol 650 Mg Supp) 650 mg RC STAT STA Stop: 07/23/17 06:04 Last Admin: 07/23/17 06:28 Dose: 650 mg Sodium Chloride (Sodium Chloride 0.9%) 1,000 mls @ 2,000 mls/hr IV .Q30M ONE Stop: 07/23/17 06:29 Last Admin: 07/23/17 06:28 Dose: 2,000 mls/hr eMAR Start Stop Document 07/23/17 06:28 CNR (Rec: 07/23/17 06:28 CNR [id number]) Intravenous Solution Start Date 07/23/17 Start Time 06:28 Ceftriaxone Sodium (Rocephin 1 Gram Ivpb) 1 gm in 100 mls @ 200 mls/hr IV ONCE STA PRN Reason: Protocol Stop: 07/23/17 07:05 Last Admin: 07/23/17 06:48 Dose: 200 mls/hr eMAR Start Stop Document 07/23/17 06:48 CNR (Rec: 07/23/17 06:49 CNR [id number]) Intravenous Solution Start Date 07/23/17 Start Time 06:49 End Date 07/23/17 End time 07:19 Total Infusion Time 30 Azithromycin (Zithromax 500mg In Ns) 500 mg in 250 mls @ 166.667 mls/hr IV STAT STA PRN Reason: Protocol Stop: 07/23/17 08:05 Last Admin: 07/23/17 07:46 Dose: 166.667 mls/hr eMAR Start Stop Document 07/23/17 07:46 [facility] (Rec: 07/23/17 07:46 [facility] [id number]) Intravenous Solution Start Date 07/23/17 Start Time 07:46 End Date 07/23/17 End time 09:16 Total Infusion Time 90 Piperacillin Sod/Tazobactam Sod (Zosyn 3.375 In Ns 100ml) 100 mls @ 200 mls/hr IVPB STAT STA PRN Reason: Protocol Stop: 07/23/17 08:17 Last Admin: 07/23/17 11:56 Dose: 200 mls/hr eMAR Start Stop Document 07/23/17 11:56 [facility] (Rec: 07/23/17 11:56 [facility] [id number]) Intravenous Solution Start Date 07/23/17 Start Time 11:56 End Date 07/23/17 End time 12:30 Total Infusion Time 34 Morphine Sulfate (Morphine) 4 mg IVP STAT STA Stop: 07/23/17 08:08 Last Admin: 07/23/17 08:18 Dose: 4 mg MAR Pain Assessment Document 07/23/17 08:18 [facility] (Rec: 07/23/17 08:18 [facility] [id number]) Pain Reassessment Is this a pain reassessment? Yes Sleep Is patient sleeping during reassessment? No Presence of Pain Presence of Pain Yes Pain Scale Used Pain Scale Used Numeric Location Pain Location Body Site Generalized Description Intensity of Pain at present 8 IVP Administration Document 07/23/17 08:18 [facility] (Rec: 07/23/17 08:18 [facility] [id number]) Charges for Administration # of IVP Administrations 1 Ondansetron HCl (Zofran Inj) 4 mg IVP STAT STA Stop: 07/23/17 08:08 Last Admin: 07/23/17 08:17 Dose: 4 mg IVP Administration Document 07/23/17 08:17 [facility] (Rec: 07/23/17 08:17 [facility] [id number]) Charges for Administration # of IVP Administrations 1 Potassium Chloride (Potassium Chloride Oral Soln) 40 meq PO ONCE ONE Stop: 07/23/17 11:08 Last Admin: 07/23/17 11:55 Dose: 40 meq Disposition/Present on Arrival - Present on Arrival Any Indicators Present on Arrival: No History of DVT/PE: No History of Uncontrolled Diabetes: No Urinary Catheter: No History of Decub. Ulcer: No History Surgical Site Infection Following: None - Disposition Have Diagnosis and Disposition been Completed?: Yes Diagnosis: Fever, Ascites, Pneumonia, Pleural effusion, Near syncope Disposition: HOSPITALIZED Disposition Time: 11:50 Patient Problems: Current Active Problems Problem Status Onset Ascites Acute Fever Acute Near syncope Acute Pleural effusion Acute Pneumonia Acute Condition: GUARDED
[2017-07-23] MEDS ORDERED: POLYETHYLENE GLYCOL 3350 17 GM/Dose PACKET PO PRN (12:19)
[2017-07-23] MEDS ORDERED: Magnesium Citrate Oral SOL (300 ml) PO ONE (12:21)
[2017-07-23] MEDS ORDERED: Sodium Chloride 0.9% 1,000 ML IV SCH ×2 (12:45→13:40)
--- NOTE | 2017-07-23 12:47 | CP.PCM.HP ---
<Salud Rowe - Last Filed: 07/23/17 15:02> History of Present Illness - History of Present Illness History of Present Illness: Salud Rowe, PGY1, Progress Note for Dr Morales: CC: weakness, constipation, abdominal distention 72 year old male with PMH cholangiocarcinoma with liver metasteses, bilateral DVTs, subcapsular hematoma, DVT on anti-coagulation, hypertension, CAD with stents, presents for generalized weakness for past few days. Pt also reports abdominal distention, constipation for past 8 days. Pt also reports near- syncopal episode due to weakness, denies LOC, confusion. Pt recently was hospitalized at [facility], 07/08-07/15, for similar complaints s/p paracentesis and thoracentesis. Report fever in ED, denies chills, shortness of breath, abdominal pain,nausea, vomiting, headache, urinary complaints. In ED, pt febrile 102.7, tachycardic 115, BP 112/64, imaging showed massive ascites and b/l pleural effusions. Given rectal tylenol, 2L NS bolus, azithro and zosyn. 12 point ROS obtained and negative, except as per HPI. Heme/Onc: Dr. Headley PMH: cholangiocarcinoma, hypertension, CAD, possible DM, bilateral DVTs on Warfarin Past Surgical History: biliary stenting,prostate surgery, thyroidectomy, cardiac stents Family History: Unknown Allergies: NKA Social History: Lives with son, former smoker, denies alcohol or llicit drug use Present on Admission - Present on Admission Any Indicators Present on Admission: No History of DVT/PE: Yes History of Uncontrolled Diabetes: No Urinary Catheter: No Decubitus Ulcer Present: No Review of Systems - Review of Systems All systems: reviewed and no additional remarkable complaints except Review of Systems: as per HPI Past Patient History - Infectious Disease Hx of Infectious Diseases: None - Past Medical History & Family History Past Medical History?: Yes - Past Social History Smoking Status: Former Smoker - CARDIAC Hx Cardiac Disorders: Yes Hx Hypertension: Yes - PULMONARY Hx Respiratory Disorders: No - NEUROLOGICAL Hx Neurological Disorder: No - HEENT Hx HEENT Problems: Yes - RENAL Hx Chronic Kidney Disease: No - ENDOCRINE/METABOLIC Hx Diabetes Mellitus Type 2: Yes - HEMATOLOGICAL/ONCOLOGICAL Hx Cancer: Yes Hx Chemotherapy: Yes - INTEGUMENTARY Hx Dermatological Problems: No - MUSCULOSKELETAL/RHEUMATOLOGICAL Hx Musculoskeletal Disorders: Yes Hx Back Pain: Yes Hx Falls: No - GASTROINTESTINAL Other/Comment: Biliary Drain placed one month ago 05/2017Liver cancer- Chemotherapy - GENITOURINARY/GYNECOLOGICAL Hx Prostate Problems: Yes - PSYCHIATRIC Hx Psychophysiologic Disorder: No Hx Substance Use: No - SURGICAL HISTORY Hx Cardiac Catheterization: Yes Hx Coronary Stent: Yes - ANESTHESIA Hx Anesthesia: Yes Hx Anesthesia Reactions: Yes Hx Malignant Hyperthermia: No Meds Allergies/Adverse Reactions: Allergies Allergy/AdvReac Type Severity Reaction Status Date / Time No Known Allergies Allergy Verified 06/21/17 00:56 Physical Exam - Constitutional Appears: No Acute Distress, Chronically Ill - Head Exam Head Exam: ATRAUMATIC, NORMOCEPHALIC - Eye Exam Eye Exam: EOMI, PERRL. absent: Conjunctival injection, Scleral icterus Pupil Exam: NORMAL ACCOMODATION, PERRL. absent: Fixed, Irregular, Miosis, Unequal - ENT Exam ENT Exam: Mucous Membranes Dry - Neck Exam Neck exam: Positive for: Full Rom - Respiratory Exam Respiratory Exam: Decreased Breath Sounds (at bilateral bases). absent: Chest Wall Tenderness, Wheezes, Respiratory Distress, Stridor Additional comments: mild bibasilar crackles - Cardiovascular Exam Cardiovascular Exam: Tachycardia, +S1, +S2. absent: Systolic Murmur - GI/Abdominal Exam GI & Abdominal Exam: Distended, Normal Bowel Sounds. absent: Firm, Guarding, Rebound, Rigid - Extremities Exam Extremities exam: Positive for: pedal edema (2-3+ bilaterally), pedal pulses present. Negative for: calf tenderness - Back Exam Back exam: NORMAL INSPECTION. absent: CVA tenderness (L), CVA tenderness (R) - Neurological Exam Neurological exam: Alert, Oriented x3 - Psychiatric Exam Psychiatric exam: Normal Affect, Normal Mood - Skin Skin Exam: Dry, Normal Color, Warm Results - Vital Signs Recent Vital Signs: Last Vital Signs Temp 102.7 F H 07/23/17 06:02 Pulse 120 H 07/23/17 11:52 Resp 18 07/23/17 11:52 BP 104/63 07/23/17 11:52 Pulse Ox 97 07/23/17 11:52 - Labs Result Diagrams: 07/23/17 06:20 07/23/17 06:20 Assessment & Plan - Assessment and Plan (Free Text) Assessment: 72 year old Italian male with PMH metastatic cholangiocarcinoma with liver mets , status-post drainage of a subcapsular hematoma, status post conversion to a 14 -gauge internal-external drain into the duodenum on table [place] therapy with gemcitabine, hypertension, CAD, presents for fever, worsening abdominal distention, constipation, generalized weakness, found to have massive ascites and bilateral pleural effusions: Abdominal distention: 2/2 massive ascites vs SBP vs constipation - CT abdomen/pelvis shows massive ascites. probable omental metastasis. Hepatic neoplasm, multifocal. ? subscapular collection inferior right hepatic lobe. PTC catheter. Extensive intrahepatic biliary ductal dilatation. B/l pleural effusion , R>L, compressive atelectasis R>L. - IR consulted. Appreciate recs. Scheduled for paracentesis and biliary stent change tomorrow. - Heme-Onc and GI consulted. F/u recs. - Colace tid, miralax bid. Mag citrate x1. - Zosyn - BP on low side. Consider Lasix once BP stable. - NS@100/h Bilateral pleural effusion: - saturating well - monitor Hypokalemia: - hold home aldactone - repleted Hyponatremia: - workup ordered - NS@100 - will monitor History of bilateral DVTs: - Hold home warfarin - INR 2.34 - scheduled for 1 unit FFPs tomorrow AM. History of anemia: - Hgb 9.9 (baseline 9.8) - iron studies. B12, folate - Monitor - daily cbc History of CAD: - ASA 81 mg daily Hx of DM: - ISS low Hx of hypothyroidism: - Levothyroxine 100 mcg daily PPX: protonix, Lovenox sq Case seen and examined with Dr Morales. Salud Rowe, PGY1 - Date & Time Date: 07/23/17 Time: 15:38 <Gómez Morales - Last Filed: 07/23/17 17:09> Results - Vital Signs Recent Vital Signs: Last Vital Signs Temp 102.7 F H 07/23/17 06:02 Pulse 120 H 07/23/17 14:56 Resp 22 07/23/17 14:56 BP 91/60 L 07/23/17 14:56 Pulse Ox 97 07/23/17 11:52 - Labs Result Diagrams: 07/23/17 06:20 07/23/17 06:20 Labs: Laboratory Results - last 24 hr 07/23/17 07/23/17 12:50 14:30 Serum Osmolality 269 L Blood Type B POSITIVE Antibody Screen Negative BBK History Checked Patient has bt Attending/Attestation - Attestation I have personally seen and examined this patient.: Yes I have fully participated in the care of the patient.: Yes I have reviewed all pertinent clinical information: Yes Notes (Text): 07/23/17 17:00 Attending note ; Patient seen and examined with resident in ER . Patient is a 72 year old Italian male with PMH of metastatic cholangiocarcinoma with liver mets, status-post drainage of a subcapsular hematoma, status post biliary drain placement, s/p chemotherapy with cisplatin and gemcitabine, bilateral lower extremity DVT is admitted with fever, worsening abdominal distention, constipation, generalized weakness, found to have massive ascites and bilateral pleural effusions. Patient apparently had a fall. No injury. CT head is negative. Generalized deconditioning secondary to advanced cancer. CT chest abdomen and pelvis showed massive ascites, probable omental metastasis with bilateral pleural effusion and atelectasis. CT reviewed with Dr. Duarte Guerra in detail. Plan for biliary drain change and paracentesis tomorrow. Bilateral lower extremity DVT; on Coumadin. INR is 2.3. Will order 1 unit of FFP before procedure. Fever; panculture ordered. Started on IV Zosyn. One dose of vancomycin given .ID evaluation requested. Cholangiocarcinoma; case discussed with oncologist in detail. Patient was already evaluated by [facility] hepatology team. Prognosis is poor. Upon discharge patient will be referred to [facility] clinic. 07/23/17 17:09
[2017-07-23] MEDS: Pantoprazole 40 mg EC Tab PO SCH (14:19)
[2017-07-23] MEDS: Piperacillin/Tazobact 3.375 gm 100 ML IVPB SCH ×2 (14:19→20:03)
[2017-07-23] MEDS: Levothyroxine 100 MCG TAB PO SCH (14:19)
[2017-07-23] MEDS ORDERED: Enoxaparin 40 mg Syringe SC SCH (15:00)
[2017-07-23] MEDS ORDERED: Vancomycin 1gm in NS 250ml 1 GM/250 ML BAG IVPB STA (17:08)
[2017-07-23] MEDS: Insulin Lispro (humaLOG) LOW Coverage SC SCH ×2 (17:57→23:18)
[2017-07-23] MEDS: Potassium & Sodium Phosphate PO SCH (17:59)
[2017-07-23] MEDS ORDERED: Alum-Mag Hydrox-Simethicone Susp (30 mL) PO PRN (18:08)
[2017-07-23 18:22] LABS: IRON 16 ug/dL (45-180)
[2017-07-23 18:31] LABS: % IRON SATURATION 7 % (20-55); TOTAL IRON BINDING CAPACITY 247 ug/dL (261-462)
--- NOTE | 2017-07-23 19:55 | CP.PCM.CON ---
History of Present Illness - History of Present Illness History of Present Illness: Infectious Disease Consultation: July 23, 2017 72 turkish speaking Marshallese male with a PMHx of cholangiocarcinoma with liver mets, hypertension, diabetes, CAD s/p stents, obstructive jaundice, and intrahepatic ducal dilatation s/p biliary drain placement, presents to the emergency department for several days of constipation, worsening abdominal distension and tenderness specifically on the left quadrants, near syncopal episode, and occasional SOB. Patient was recently admitted to [facility] and discharged 8 days ago. Poor PO intake is becoming the patient's normal as per the son. CT abdomen done on current hospitalization is now showing massive ascites, possible omental metastasis, and multifocal hepatic neoplasm. Patient was seen and examined at bedside. History of lower extremity swelling and tenderness. Patient denies chills, chest pains, nausea, vomiting, diarrhea, dysuria. Restarted on Zosyn for antibiotic coverage. Fever of 102.7 F on admission. PMHx: cholangiocarcinoma with liver mets, hypertension, diabetes, CAD s/p stents, obstructive jaundice, liver mass, and intrahepatic ducal dilatation s/p biliary drain placement PSHx: Biliary drain placement by IR at [facility], Prostate surgery, Thyroidectomy, cardiac stenting Allergies: NKDA Social Hx: lives with son Ex-smoker stopped 25 years ago No EtOH or illicit drug use Active Medications Al Hydrox/Mg Hydrox/Simethicone (Maalox Plus 30 Ml) 30 ml PO Q4 PRN PRN Reason: INDIGESTION Docusate Sodium (Colace) 100 mg PO TID [facility] Last Admin: 07/23/17 17:59 Dose: 100 mg Piperacillin Sod/Tazobactam Sod (Zosyn 3.375 In Ns 100ml) 100 mls @ 200 mls/hr IVPB Q6H NINA PRN Reason: Protocol Stop: 07/23/17 19:29 Last Admin: 07/23/17 14:19 Dose: 200 mls/hr Sodium Chloride (Sodium Chloride 0.9%) 1,000 mls @ 100 mls/hr IV .Q10H [facility] Insulin Human Lispro (Humalog Low) 0 units SC ACHS NINA PRN Reason: Protocol Last Admin: 07/23/17 17:57 Dose: Not Given Levothyroxine Sodium (Synthroid) 100 mcg PO DAILY [facility] Last Admin: 07/23/17 14:19 Dose: 100 mcg Morphine Sulfate (Morphine) 2 mg IVP Q4H PRN PRN Reason: Pain, moderate (4-7) Ondansetron HCl (Zofran Inj) 4 mg IVP Q4H PRN PRN Reason: Nausea/Vomiting Pantoprazole Sodium (Protonix Ec Tab) 40 mg PO DAILY [facility] Last Admin: 07/23/17 14:19 Dose: 40 mg Polyethylene Glycol (Miralax) 17 gm PO BID PRN PRN Reason: Constipation Potassium Phos/Sodium Phos (Neutra-Phos) 1 pkt PO BID [facility] Stop: 07/26/17 18:01 Last Admin: 07/23/17 17:59 Dose: 1 pkt Family Hx: none given ROS: No fevers, chills, nausea, vomiting, diarrhea, headaches, dizziness, chest pain , abdominal pain, melena, hematuria, hematemesis, hematochezia, depression, anxiety, diarrhea. Past Patient History - Infectious Disease Hx of Infectious Diseases: None - Past Medical History & Family History Past Medical History?: Yes - Past Social History Smoking Status: Former Smoker - CARDIAC Hx Cardiac Disorders: Yes Hx Hypertension: Yes - PULMONARY Hx Respiratory Disorders: No - NEUROLOGICAL Hx Neurological Disorder: No - HEENT Hx HEENT Problems: Yes - RENAL Hx Chronic Kidney Disease: No - ENDOCRINE/METABOLIC Hx Diabetes Mellitus Type 2: Yes - HEMATOLOGICAL/ONCOLOGICAL Hx Cancer: Yes Hx Chemotherapy: Yes - INTEGUMENTARY Hx Dermatological Problems: No - MUSCULOSKELETAL/RHEUMATOLOGICAL Hx Musculoskeletal Disorders: Yes Hx Back Pain: Yes Hx Falls: No - GASTROINTESTINAL Other/Comment: Biliary Drain placed one month ago 05/2017Liver cancer- Chemotherapy - GENITOURINARY/GYNECOLOGICAL Hx Prostate Problems: Yes - PSYCHIATRIC Hx Psychophysiologic Disorder: No Hx Substance Use: No - SURGICAL HISTORY Hx Cardiac Catheterization: Yes Hx Coronary Stent: Yes - ANESTHESIA Hx Anesthesia: Yes Hx Anesthesia Reactions: Yes Hx Malignant Hyperthermia: No Meds Allergies/Adverse Reactions: Allergies Allergy/AdvReac Type Severity Reaction Status Date / Time No Known Allergies Allergy Verified 06/21/17 00:56 - Medications Medications: Current Medications Al Hydrox/Mg Hydrox/Simethicone (Maalox Plus 30 Ml) 30 ml PO Q4 PRN PRN Reason: INDIGESTION Docusate Sodium (Colace) 100 mg PO TID [facility] Last Admin: 07/23/17 17:59 Dose: 100 mg Piperacillin Sod/Tazobactam Sod (Zosyn 3.375 In Ns 100ml) 100 mls @ 200 mls/hr IVPB Q6H [facility] PRN Reason: Protocol Stop: 07/23/17 19:29 Last Admin: 07/23/17 14:19 Dose: 200 mls/hr Sodium Chloride (Sodium Chloride 0.9%) 1,000 mls @ 100 mls/hr IV .Q10H [facility] Insulin Human Lispro (Humalog Low) 0 units SC ACHS [facility] PRN Reason: Protocol Last Admin: 07/23/17 17:57 Dose: Not Given Levothyroxine Sodium (Synthroid) 100 mcg PO DAILY [facility] Last Admin: 07/23/17 14:19 Dose: 100 mcg Morphine Sulfate (Morphine) 2 mg IVP Q4H PRN PRN Reason: Pain, moderate (4-7) Ondansetron HCl (Zofran Inj) 4 mg IVP Q4H PRN PRN Reason: Nausea/Vomiting Pantoprazole Sodium (Protonix Ec Tab) 40 mg PO DAILY [facility] Last Admin: 07/23/17 14:19 Dose: 40 mg Polyethylene Glycol (Miralax) 17 gm PO BID PRN PRN Reason: Constipation Potassium Phos/Sodium Phos (Neutra-Phos) 1 pkt PO BID [facility] Stop: 07/26/17 18:01 Last Admin: 07/23/17 17:59 Dose: 1 pkt Physical Exam - Constitutional Appears: Non-toxic, No Acute Distress, Chronically Ill - Head Exam Head Exam: ATRAUMATIC, NORMOCEPHALIC - Eye Exam Eye Exam: EOMI, PERRL Pupil Exam: NORMAL ACCOMODATION, PERRL - ENT Exam ENT Exam: Mucous Membranes Moist, Normal External Ear Exam, TM's Normal Bilaterally - Neck Exam Neck exam: Positive for: Full Rom, Normal Inspection - Respiratory Exam Respiratory Exam: Decreased Breath Sounds, Rhonchi. absent: Rales, Wheezes Additional comments: crackles. - Cardiovascular Exam Cardiovascular Exam: REGULAR RHYTHM, RRR, +S1, +S2 - GI/Abdominal Exam GI & Abdominal Exam: Distended, Normal Bowel Sounds, Soft Additional comments: ascites. - Extremities Exam Extremities exam: Positive for: full ROM Additional comments: general weakness and moderate lower body edema. - Neurological Exam Neurological exam: Alert, CN II-XII Intact, Oriented x3 - Psychiatric Exam Psychiatric exam: Normal Affect, Normal Mood - Skin Skin Exam: Intact, Normal Color Results - Vital Signs Recent Vital Signs: Last Vital Signs Temp 102.7 F H 07/23/17 06:02 Pulse 120 H 07/23/17 14:56 Resp 22 07/23/17 14:56 BP 91/60 L 07/23/17 14:56 Pulse Ox 97 07/23/17 11:52 - Labs Result Diagrams: 07/23/17 06:20 07/23/17 06:20 Labs: Laboratory Results - last 24 hr 07/23/17 07/23/17 07/23/17 12:50 14:30 18:07 Serum Osmolality 269 L Iron 16 L TIBC 247 L % Saturation 7 L Blood Type B POSITIVE Antibody Screen Negative BBK History Checked Patient has bt Assessment & Plan - Assessment and Plan (Free Text) Assessment: 72 yo Marshallese male with significant abdominal distension, SOB, difficulty ambulating, and near syncopal episodes. CT of abdomen showing possible omental metastasis. Rapid accumulation of ascitic fluid given paracentesis and thoracentesis. Given CT scan of the abdomen, it appears the patient's cholangiocarcinoma is worsening with increased metastasis. Fevers could be secondary to malignancy. There are small bilateral pleural effusions bilaterally. Zosyn given for a potential pneumonia. The patient does not have leukocytosis. Could check procalcitonin and if significantly elevated, case for pneumonia can be made. Case discussed with Dr. Morales. Case discussed with patient's son. Thank you for allowing me to participate in the care of the patient, we will follow with you.
[2017-07-23] MEDS: Morphine 2 mg/2 mL syringe IVP PRN (20:03)
--- NOTE | 2017-07-23 23:46 | CARD ---
APPROVED REPORT EKG Measurement Heart [id number] <Conclusion> Sinus tachycardia Left axis deviation Low voltage QRS Inferior infarct, age undetermined Possible Anterolateral infarct, age undetermined Abnormal ECG
--- NOTE | 2017-07-24 01:12 | CON ---
DATE: 07/23/2017 HOSPITAL CONSULT This is [facility] consult on the medical floor. For Dr. Headley. CHIEF COMPLAINT: Near syncope as per his son. HISTORY OF PRESENT ILLNESS: The patient is a 72-year-old male with known cholangiocarcinoma with liver metastasis, subcapsular hematoma, on anticoagulation with Coumadin for DVT, coronary artery disease with stenting with near syncopal episode as per his son. The patient almost fell in his kitchen when he slumped forward and almost hitting the counter with possible head trauma. The patient did have a paracentesis in the past with no bowel movement for a few days as per his son. At present, the patient is resting comfortably, reporting that he has abdominal discomfort and requests something for pain, which will be given. ALLERGIES: NO KNOWN ALLERGIES. MEDICATIONS: Include mag citrate, which was given earlier today; insulin sliding scale; Colace; MiraLax; morphine; potassium; Protonix; Rocephin; Synthroid; vancomycin; azithromycin; Zofran and piperacillin and tazobactam. PAST MEDICAL HISTORY: The past medical history for this patient is significant for cholangiocarcinoma with liver metastasis, hypertension, diabetes, coronary artery disease with stenting and obstructive jaundice with ascites. PAST SURGICAL HISTORY: Thyroidectomy, percutaneous biliary stent, coronary artery stenting, prostatectomy. FAMILY HISTORY AND SOCIAL HISTORY: Former smoker, quit 25 years ago. Denies alcohol use. Lives with his son. Otherwise, noncontributory. REVIEW OF SYSTEMS: Twelve-point review of systems was done, which was negative to questioning except for items mentioned in the history of present illness. OBJECTIVE PHYSICAL EXAMINATION: VITAL SIGNS: Temperature 102.7 rectal, pulse 124 with pain, blood pressure 91/60, pulse ox of 97%, respiratory rate 22. HEENT: Sclerae mildly icteric. Tongue is moist. NECK: Supple. HEART: Tachy rate. Regular rhythm. LUNGS: Decreased breath sounds at the bases. ABDOMEN: Distended with positive ascitic fluid wave with minimal tenderness to gentle palpation. EXTREMITIES: +1 edema of the feet bilaterally. NEUROLOGIC: The patient is awake and alert with equal belt loop maker. SKIN: Warm, dry. LABORATORY DATA: The patient's labs were done. White blood cell count of 9.1, hemoglobin of 9.9, hematocrit 29.6, platelet count of 411,000 with iron percent saturation of 7%, potassium 3, INR 2.34. Sodium of 131, chloride of 92 with a T bili of 3.5, AST of 251, ALT of 149, LDH of 770 with an alk phos of 983. The patient did have a CAT scan of his head, which was read as essentially negative. CT scan of his abdomen and pelvis was significant for massive ascites, probable omental metastasis, hepatic neoplasm, multifocal. Questionable subcapsular collection, inferior right hepatic lobe. PTC catheter, extensive intrahepatic biliary ductal dilatation, bilateral pleural effusion, compressive atelectasis, right greater than left. An EKG was done, it has not been read. He had a chest x-ray done earlier today, which was read as small bilateral pleural effusion. ASSESSMENT: The assessment for this patient is that of impending sepsis with elevated temperature, known cholangiocarcinoma with liver metastasis, hypertension, diabetes, coronary artery disease with stent, obstructive jaundice, pleural effusions, ascites, also status post fall, history of deep venous thrombosis, on Coumadin, also history of constipation. PLAN: The plan for this patient after conversation with Dr. Headley is to continue present medical regimen with Coumadin on hold for now with paracentesis planned for. We will continue his analgesics as per his primary doctor with consult with Dr. Dugan, gastrointestinal and Dr. Rodriguez, Infectious Diseases; with Dr. Duarte Guerra for paracentesis. There is also consideration for fresh frozen plasma to be given. As the paracentesis as indicated, it is on hold with vitamin K also to be given should it be necessary to reverse the Coumadin effect and to lower his INR. We will monitor clinically with labs. Prognosis for this patient is guarded. This is a complex patient with a comprehensive medically necessary and appropriate visit carried out in excess of 20 minutes [id number] time with the patient. As he is from [place] with poor grasp of Danish, his history of gleaned from previous admissions and from discussion with nursing and examining the patient with minimal Danish appreciated by the patient. Prognosis for this patient is guarded with consideration for consult with Crys Chang for a hospice care as indicated. Rhett Mendez MD [facility] # [id number]
[2017-07-24 06:28] LABS: BASO # 0.01 K/mm3 (0.0-2.0); BASO % 0.1 % (0.0-3.0); EOS % 0.1 % (1.5-5.0); GRAN # 7.47 (1.4-6.5); GRAN % 79.3 % (50.0-68.0); HEMOGLOBIN 9.8 g/dL (14.0-18.0); LYMPH # 1.1 (1.2-3.4); LYMPH % 11.5 % (22.0-35.0); MEAN CELL VOLUME 89.3 fl (80.0-105.0); MEAN CORPUSCULAR HEMOGLOBIN 30.1 pg (25.0-35.0); MEAN CORPUSCULAR HGB CONC 33.7 g/dl (31.0-37.0); MEAN PLATELET VOLUME 9.4 fl (7.0-11.0); MONO # 0.9 (0.1-0.6); RBC 3.26 10^6/uL (3.5-6.1); RED CELL DISTRIBUTION WIDTH 18.2 % (11.5-14.5); WHITE BLOOD COUNT 9.4 10^3/ul (4.5-11.0)
[2017-07-24 06:52] LABS: INR 2.52 (0.93-1.08); PROTHROMBIN TIME 29.5 SECONDS (9.4-12.5)
[2017-07-24 07:15] LABS: ALB/GLOB RATIO 0.8 (1.1-1.8); ALBUMIN 2.5 g/dL (3.0-4.8); ALT/SGPT 98 U/L (7-56); AST/SGOT 104 U/L (17-59); BLOOD UREA NITROGEN 18 mg/dL (7-21); CALCIUM 7.5 mg/dL (8.4-10.5); GFR AFRICAN-AMERICAN > 60; GFR NON-AFRICAN AMERICAN > 60
--- NOTE | 2017-07-24 07:18 | CP.PCM.CON ---
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 The patient was walking in his kitchen, felt weak and nearly collapsed. The patients son reported that his father had not had a bowel movement in approximately 1 week. Patient admits to worsened abdominal distention and CT shows large volume ascites. No endoscopic records for review. 12 system ROS performed and negative except where stated PMHx: See HPI PSHx: TURP, thyroidectomy, percutaneous biliary stent placement, PCI FHx: Denies family history of GI malignancies Social: Former tobacco use (~32 years, quit 15 years ago), denies EtOH or illicit drug use Past Patient History - Infectious Disease Hx of Infectious Diseases: None - Past Medical History & Family History Past Medical History?: Yes - Past Social History Smoking Status: Former Smoker - CARDIAC Hx Cardiac Disorders: Yes Hx Hypertension: Yes - PULMONARY Hx Respiratory Disorders: No - NEUROLOGICAL Hx Neurological Disorder: No - HEENT Hx HEENT Problems: Yes - RENAL Hx Chronic Kidney Disease: No - ENDOCRINE/METABOLIC Hx Diabetes Mellitus Type 2: Yes - HEMATOLOGICAL/ONCOLOGICAL Hx Cancer: Yes Hx Chemotherapy: Yes - INTEGUMENTARY Hx Dermatological Problems: No - MUSCULOSKELETAL/RHEUMATOLOGICAL Hx Musculoskeletal Disorders: Yes Hx Back Pain: Yes Hx Falls: No - GASTROINTESTINAL Other/Comment: Biliary Drain placed one month ago 05/2017Liver cancer- Chemotherapy - GENITOURINARY/GYNECOLOGICAL Hx Prostate Problems: Yes - PSYCHIATRIC Hx Psychophysiologic Disorder: No Hx Substance Use: No - SURGICAL HISTORY Hx Cardiac Catheterization: Yes Hx Coronary Stent: Yes - ANESTHESIA Hx Anesthesia: Yes Hx Anesthesia Reactions: Yes Hx Malignant Hyperthermia: No Meds Allergies/Adverse Reactions: Allergies Allergy/AdvReac Type Severity Reaction Status Date / Time No Known Allergies Allergy Verified 06/21/17 00:56 - Medications Medications: Current Medications Al Hydrox/Mg Hydrox/Simethicone (Maalox Plus 30 Ml) 30 ml PO Q4 PRN PRN Reason: INDIGESTION Albumin Human (Albumin Human 25% (12.5 Gm/50 Ml)) 12.5 gm IV Q8 [facility] Stop: 07/25/17 22:00 Docusate Sodium (Colace) 100 mg PO TID [facility] Last Admin: 07/23/17 17:59 Dose: 100 mg Sodium Chloride (Sodium Chloride 0.9%) 1,000 mls @ 100 mls/hr IV .Q10H [facility] Insulin Human Lispro (Humalog Low) 0 units SC ACHS [facility] PRN Reason: Protocol Last Admin: 07/23/17 23:18 Dose: Not Given Levothyroxine Sodium (Synthroid) 100 mcg PO DAILY [facility] Last Admin: 07/23/17 14:19 Dose: 100 mcg Morphine Sulfate (Morphine) 2 mg IVP Q4H PRN PRN Reason: Pain, moderate (4-7) Last Admin: 07/23/17 20:03 Dose: 2 mg Ondansetron HCl (Zofran Inj) 4 mg IVP Q4H PRN PRN Reason: Nausea/Vomiting Last Admin: 07/23/17 20:02 Dose: 4 mg Pantoprazole Sodium (Protonix Ec Tab) 40 mg PO DAILY [facility] Last Admin: 07/23/17 14:19 Dose: 40 mg Polyethylene Glycol (Miralax) 17 gm PO BID PRN PRN Reason: Constipation Potassium Phos/Sodium Phos (Neutra-Phos) 1 pkt PO BID [facility] Stop: 07/26/17 18:01 Last Admin: 07/23/17 17:59 Dose: 1 pkt Physical Exam - Constitutional Appears: Non-toxic, No Acute Distress - Eye Exam Eye Exam: EOMI, PERRL - ENT Exam ENT Exam: Mucous Membranes Moist - Respiratory Exam Respiratory Exam: Rales. absent: Clear to Auscultation Bilateral, Rhonchi, Wheezes - Cardiovascular Exam Cardiovascular Exam: RRR, +S1, +S2 - GI/Abdominal Exam GI & Abdominal Exam: Distended, Firm, Normal Bowel Sounds, Tenderness (diffusely ). absent: Guarding, Rigid, Soft - Extremities Exam Extremities exam: Positive for: pedal edema. Negative for: normal inspection Additional comments: B/L 2+ LE edema - Neurological Exam Neurological exam: Alert, Oriented x3 - Psychiatric Exam Psychiatric exam: Anxious - Skin Skin Exam: Dry, Warm Results - Vital Signs Recent Vital Signs: Last Vital Signs Temp 102.7 F H 07/23/17 06:02 Pulse 120 H 07/23/17 14:56 Resp 22 07/23/17 14:56 BP 91/60 L 07/23/17 14:56 Pulse Ox 97 07/23/17 11:52 - Labs Result Diagrams: 07/24/17 06:06 07/24/17 06:06 Labs: Laboratory Results - last 24 hr 07/23/17 07/23/17 07/23/17 12:50 14:30 18:07 WBC RBC Hgb Hct MCV MCH MCHC RDW Plt Count MPV Gran % Lymph % (Auto) Cowley % (Auto) Eos % (Auto) Baso % (Auto) Gran # Lymph # (Auto) Cowley # (Auto) Eos # (Auto) Baso # (Auto) PT INR Sodium Potassium Chloride Carbon Dioxide Anion Gap BUN Creatinine Est GFR ( Amer) Est GFR (Non-Af Amer) Random Glucose Serum Osmolality 269 L Calcium Phosphorus Magnesium Iron 16 L TIBC 247 L % Saturation 7 L Total Bilirubin AST ALT Alkaline Phosphatase Total Protein Albumin Globulin Albumin/Globulin Ratio Blood Type B POSITIVE Antibody Screen Negative BBK History Checked Patient has bt 07/24/17 07/24/17 07/24/17 06:06 06:06 06:06 WBC 9.4 RBC 3.26 L Hgb 9.8 L Hct 29.1 L MCV 89.3 MCH 30.1 MCHC 33.7 RDW 18.2 H Plt Count 424 MPV 9.4 Gran % 79.3 H Lymph % (Auto) 11.5 L Cowley % (Auto) 9.0 H Eos % (Auto) 0.1 L Baso % (Auto) 0.1 Gran # 7.47 H Lymph # (Auto) 1.1 L Cowley # (Auto) 0.9 H Eos # (Auto) 0.0 Baso # (Auto) 0.01 PT 29.5 H INR 2.52 H Sodium 134 Potassium 3.9 Chloride 97 L Carbon Dioxide 30 Anion Gap 11 BUN 18 Creatinine 0.8 Est GFR ( Amer) > 60 Est GFR (Non-Af Amer) > 60 Random Glucose 110 Serum Osmolality Calcium 7.5 L Phosphorus 2.3 L Magnesium 2.3 H Iron TIBC % Saturation Total Bilirubin 1.7 H AST 104 H D ALT 98 H Alkaline Phosphatase 736 H D Total Protein 5.6 L Albumin 2.5 L Globulin 3.1 Albumin/Globulin Ratio 0.8 L Blood Type Antibody Screen BBK History Checked Assessment & Plan - Assessment and Plan (Free Text) Assessment: Patient is a 72yo Serbian-speaking male with PMHX significant for 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 s/p PTC with IR complicated by perihepatic fluid collection s/p drainage later with placement of an internal/external biliary drainage catheter, currently on chemotherapy ( Gemcitabine) with Dr Headley, recurrent malignant ascites, DVT on anticoagulation, HTN, acquired hypothyroidism, DM2, CAD s/p PCI who presented to the hospital yesterday following near syncopal episode -Hilar cholangiocarcinoma with metastatic disease -Malignant ascites -Hyperbilirubinemia -Febrile illness (TMax 102.7F) -Constipation -B/L DVT Plan: -Patient is s/p IR revision of biliary drain and paracentesis with 3L removed -Recommend cell count/culture to R/O SBP -If SBP present, patent would benefit from Albumin and directed antibiotic coverage -On broad spectrum antibiotics - ID following -Miralax 17g PO BID -Enemas as needed -Diet as tolerated - Date & Time Date: 07/24/17 Time: 06:50 <Cristino Dugan - Last Filed: 07/24/17 11:38> Meds - Medications Medications: Current Medications Al Hydrox/Mg Hydrox/Simethicone (Maalox Plus 30 Ml) 30 ml PO Q4 PRN PRN Reason: INDIGESTION Albumin Human (Albumin Human 25% (12.5 Gm/50 Ml)) 12.5 gm IV Q8 [facility] Stop: 07/25/17 22:00 Last Admin: 07/24/17 11:11 Dose: 12.5 gm Docusate Sodium (Colace) 100 mg PO TID [facility] Last Admin: 07/24/17 11:12 Dose: 100 mg Sodium Chloride (Sodium Chloride 0.9%) 1,000 mls @ 100 mls/hr IV .Q10H [facility] Insulin Human Lispro (Humalog Low) 0 units SC ACHS [facility] PRN Reason: Protocol Last Admin: 07/24/17 11:15 Dose: Not Given Levothyroxine Sodium (Synthroid) 100 mcg PO DAILY [facility] Last Admin: 07/24/17 11:16 Dose: 100 mcg Morphine Sulfate (Morphine) 2 mg IVP Q4H PRN PRN Reason: Pain, moderate (4-7) Last Admin: 07/23/17 20:03 Dose: 2 mg Ondansetron HCl (Zofran Inj) 4 mg IVP Q4H PRN PRN Reason: Nausea/Vomiting Last Admin: 07/23/17 20:02 Dose: 4 mg Pantoprazole Sodium (Protonix Ec Tab) 40 mg PO DAILY [facility] Last Admin: 07/24/17 11:16 Dose: 40 mg Polyethylene Glycol (Miralax) 17 gm PO BID [facility] Last Admin: 07/24/17 11:15 Dose: 17 gm Potassium Phos/Sodium Phos (Neutra-Phos) 1 pkt PO BID [facility] Stop: 07/26/17 18:01 Last Admin: 07/24/17 11:16 Dose: 1 pkt Results - Vital Signs Recent Vital Signs: Last Vital Signs Temp 97.4 F L 07/24/17 10:03 Pulse 88 07/24/17 10:03 Resp 16 07/24/17 10:03 BP 95/61 L 07/24/17 10:03 Pulse Ox 99 07/24/17 10:03 - Labs Result Diagrams: 07/24/17 06:06 07/24/17 06:06 Labs: Laboratory Results - last 24 hr 07/23/17 07/23/17 07/23/17 12:50 14:30 18:07 WBC RBC Hgb Hct MCV MCH MCHC RDW Plt Count MPV Gran % Lymph % (Auto) Cowley % (Auto) Eos % (Auto) Baso % (Auto) Gran # Lymph # (Auto) Cowley # (Auto) Eos # (Auto) Baso # (Auto) PT INR Sodium Potassium Chloride Carbon Dioxide Anion Gap BUN Creatinine Est GFR ( Amer) Est GFR (Non-Af Amer) Random Glucose Serum Osmolality 269 L Calcium Phosphorus Magnesium Iron 16 L TIBC 247 L % Saturation 7 L Total Bilirubin AST ALT Alkaline Phosphatase Total Protein Albumin Globulin Albumin/Globulin Ratio Blood Type B POSITIVE Antibody Screen Negative BBK History Checked Patient has bt 07/24/17 07/24/17 07/24/17 06:06 06:06 06:06 WBC 9.4 RBC 3.26 L Hgb 9.8 L Hct 29.1 L MCV 89.3 MCH 30.1 MCHC 33.7 RDW 18.2 H Plt Count 424 MPV 9.4 Gran % 79.3 H Lymph % (Auto) 11.5 L Cowley % (Auto) 9.0 H Eos % (Auto) 0.1 L Baso % (Auto) 0.1 Gran # 7.47 H Lymph # (Auto) 1.1 L Cowley # (Auto) 0.9 H Eos # (Auto) 0.0 Baso # (Auto) 0.01 PT 29.5 H INR 2.52 H Sodium 134 Potassium 3.9 Chloride 97 L Carbon Dioxide 30 Anion Gap 11 BUN 18 Creatinine 0.8 Est GFR ( Amer) > 60 Est GFR (Non-Af Amer) > 60 Random Glucose 110 Serum Osmolality Calcium 7.5 L Phosphorus 2.3 L Magnesium 2.3 H Iron TIBC % Saturation Total Bilirubin 1.7 H AST 104 H D ALT 98 H Alkaline Phosphatase 736 H D Total Protein 5.6 L Albumin 2.5 L Globulin 3.1 Albumin/Globulin Ratio 0.8 L Blood Type Antibody Screen BBK History Checked Attending/Attestation - Attestation I have personally seen and examined this patient.: Yes I have fully participated in the care of the patient.: Yes I have reviewed all pertinent clinical information: Yes Notes (Text): 07/24/17 11:31 I have seen and examined patient with GI fellow. Agree with above documentation with the following additions. In brief, this is a 72 year old male with history of cholangiocarcinoma, metastatic to liver and peritoneum on palliative chemotherapy, recurrent malignant ascites, DVT, HTN, DM, CAD who presents to hospital with complaint of near syncopal episode. GI called for evaluation of worsening ascites. Patient reports diffuse abdominal pain but denies nausea, vomiting, or change in bowel habits. On arrival to hospital patient noted to have fever with Tmax of 102.7. Additional physical examination: + hepatomegaly Hilar cholangiocarcinoma, metastatic to liver/peritoneum on palliative chemotherapy DVT HTN / DM CAD Fever, ascites - s/p biliary drain exchange and paracentesis by IR today, monitor LFTs - Continue with antibiotic therapy, awaiting cell count from ascitic fluid to rule out SBP - Low sodium diet as tolerated - Follow up oncology recommendations - No planned GI intervention given patient with advanced disease, will continue to monitor clinical course
[2017-07-24] MEDS ORDERED: Lidocaine 2% Inj (20ml) ONE (08:26)
[2017-07-24] MEDS ORDERED: Midazolam 2 MG/2 ML VIAL ONE ×2 (08:27→08:53)
[2017-07-24] MEDS ORDERED: Iodixanol 320 MG/ML 100 ML BOTTLE IV ONE (08:28)
[2017-07-24] MEDS ORDERED: Iodixanol 320 MG/ML 200 ML BOTTLE IV ONE (08:28)
[2017-07-24] MEDS: Albumin Human 25% (12.5 gm/50 ml) IV SCH ×3 (11:11→22:01)
[2017-07-24] MEDS: Insulin Lispro (humaLOG) LOW Coverage SC SCH ×3 (11:15→17:37)
[2017-07-24] MEDS: POLYETHYLENE GLYCOL 3350 17 GM/Dose PACKET PO SCH ×2 (11:15→17:37)
[2017-07-24] MEDS: Pantoprazole 40 mg EC Tab PO SCH (11:16)
[2017-07-24] MEDS: Levothyroxine 100 MCG TAB PO SCH (11:16)
[2017-07-24] MEDS: Potassium & Sodium Phosphate PO SCH ×2 (11:16→17:37)
[2017-07-24] MEDS: Morphine 2 mg/2 mL syringe IVP PRN (11:35)
--- NOTE | 2017-07-24 12:20 | CP.PCM.PN ---
<Salud Rowe - Last Filed: 07/24/17 12:08> Subjective - Date & Time of Evaluation Date of Evaluation: 07/24/17 Time of Evaluation: 12:08 - Subjective Subjective: Salud Rowe, PGY1, Medicine Progress Note for Dr Morales: Patient seen and examined at bedside. No acute events overnight. Denies fever, chills, nausea, vomiting, overt bleeding, abdominal pain. Objective - Vital Signs/Intake and Output Vital Signs (last 24 hours): Temp Pulse Resp BP Pulse Ox 97.4 F L 88 16 95/61 L 99 07/24/17 10:03 07/24/17 10:03 07/24/17 10:03 07/24/17 10:03 07/24/17 10:03 Intake and Output: 07/24/17 07/24/17 06:59 18:59 Intake Total 0 Output Total 200 Balance -200 - Medications Medications: Current Medications Al Hydrox/Mg Hydrox/Simethicone (Maalox Plus 30 Ml) 30 ml PO Q4 PRN PRN Reason: INDIGESTION Albumin Human (Albumin Human 25% (12.5 Gm/50 Ml)) 12.5 gm IV Q8 [facility] Stop: 07/25/17 22:00 Last Admin: 07/24/17 11:11 Dose: 12.5 gm Docusate Sodium (Colace) 100 mg PO TID [facility] Last Admin: 07/24/17 11:12 Dose: 100 mg Sodium Chloride (Sodium Chloride 0.9%) 1,000 mls @ 100 mls/hr IV .Q10H [facility] Insulin Human Lispro (Humalog Low) 0 units SC ACHS [facility] PRN Reason: Protocol Last Admin: 07/24/17 11:50 Dose: Not Given Levothyroxine Sodium (Synthroid) 100 mcg PO DAILY [facility] Last Admin: 07/24/17 11:16 Dose: 100 mcg Morphine Sulfate (Morphine) 2 mg IVP Q4H PRN PRN Reason: Pain, moderate (4-7) Last Admin: 07/24/17 11:35 Dose: 2 mg Ondansetron HCl (Zofran Inj) 4 mg IVP Q4H PRN PRN Reason: Nausea/Vomiting Last Admin: 07/23/17 20:02 Dose: 4 mg Pantoprazole Sodium (Protonix Ec Tab) 40 mg PO DAILY [facility] Last Admin: 07/24/17 11:16 Dose: 40 mg Polyethylene Glycol (Miralax) 17 gm PO BID [facility] Last Admin: 07/24/17 11:15 Dose: 17 gm Potassium Phos/Sodium Phos (Neutra-Phos) 1 pkt PO BID [facility] Stop: 07/26/17 18:01 Last Admin: 07/24/17 11:16 Dose: 1 pkt - Labs Labs: 07/24/17 06:06 07/24/17 06:06 PT 29.5 SECONDS (9.4-12.5) H 07/24/17 06:06 INR 2.52 (0.93-1.08) H 07/24/17 06:06 APTT 32.2 Seconds (25.1-36.5) 07/23/17 06:20 - Additional Findings Additional findings: - Constitutional Appears: No Acute Distress, Chronically Ill - Head Exam Head Exam: ATRAUMATIC, NORMOCEPHALIC - Eye Exam Eye Exam: EOMI, PERRL. absent: Conjunctival injection, Scleral icterus Pupil Exam: NORMAL ACCOMODATION, PERRL. absent: Fixed, Irregular, Miosis, Unequal - ENT Exam ENT Exam: Mucous Membranes Moist - Neck Exam Neck exam: Positive for: Full Rom - Respiratory Exam Respiratory Exam: Decreased Breath Sounds (at bilateral bases). absent: Chest Wall Tenderness, Wheezes, Respiratory Distress, Stridor Additional comments: - Cardiovascular Exam Cardiovascular Exam: +S1, +S2. absent: Systolic Murmur - GI/Abdominal Exam GI & Abdominal Exam: Distended, Normal Bowel Sounds. absent: Firm, Guarding, Rebound, Rigid - Extremities Exam Extremities exam: Positive for: pedal edema (2-3+ bilaterally), pedal pulses present. Negative for: calf tenderness - Back Exam Back exam: NORMAL INSPECTION. absent: CVA tenderness (L), CVA tenderness (R) - Neurological Exam Neurological exam: Alert, Oriented x3 - Psychiatric Exam Psychiatric exam: Normal Affect, Normal Mood - Skin Skin Exam: Dry, Normal Color, Warm Assessment and Plan - Assessment and Plan (Free Text) Assessment: 72 year old Egyptian male with PMH metastatic cholangiocarcinoma with liver mets , status-post drainage of a subcapsular hematoma, status post conversion to a 14 -gauge internal-external drain into the duodenum on [place] therapy with gemcitabine, hypertension, CAD, presents for fever, worsening abdominal distention, constipation, generalized weakness, found to have massive ascites and bilateral pleural effusions, s/p paracentesis and biliary stent exchange: Abdominal distention: 2/2 massive ascites vs SBP vs constipation - CT abdomen/pelvis shows massive ascites. probable omental metastasis. Hepatic neoplasm, multifocal. ? subscapular collection inferior right hepatic lobe. PTC catheter. Extensive intrahepatic biliary ductal dilatation. B/l pleural effusion , R>L, compressive atelectasis R>L. - IR consulted. Appreciate recs. S/p paracentesis and biliary stent change tomorrow. - Heme-Onc and GI consulted. F/u recs. - Colace tid, miralax bid. s/p Mag citrate - Zosyn - BP on low side. Consider Lasix once BP stable. - NS@100/h Bilateral pleural effusion: - saturating well - monitor Hypokalemia: - resolved - hold home aldactone - repleted Hyponatremia: - resolved - NS@100 - will monitor History of bilateral DVTs: - Hold home warfarin - INR 2.52 - s/p 1 unit FFPs today History of anemia: - Hgb 9.9 (baseline 9.8) - iron studies. B12, folate - Monitor - daily cbc History of CAD: - ASA 81 mg daily Hx of DM: - ISS low Hx of hypothyroidism: - Levothyroxine 100 mcg daily PPX: protonix, Lovenox sq Case seen and examined with Dr Morales. Salud Rowe, PGY1 <Gómez Morales - Last Filed: 07/24/17 17:24> Objective - Vital Signs/Intake and Output Vital Signs (last 24 hours): Temp Pulse Resp BP Pulse Ox 97.4 F L 88 16 95/61 L 99 07/24/17 10:03 07/24/17 10:03 07/24/17 10:03 07/24/17 10:03 07/24/17 10:03 Intake and Output: 07/24/17 07/24/17 06:59 18:59 Intake Total 0 Output Total 200 Balance -200 - Medications Medications: Current Medications Al Hydrox/Mg Hydrox/Simethicone (Maalox Plus 30 Ml) 30 ml PO Q4 PRN PRN Reason: INDIGESTION Albumin Human (Albumin Human 25% (12.5 Gm/50 Ml)) 12.5 gm IV Q8 [facility] Stop: 07/25/17 22:00 Last Admin: 07/24/17 14:22 Dose: Not Given Docusate Sodium (Colace) 100 mg PO TID [facility] Last Admin: 07/24/17 14:24 Dose: 100 mg Sodium Chloride (Sodium Chloride 0.9%) 1,000 mls @ 100 mls/hr IV .Q10H [facility] Insulin Human Lispro (Humalog Low) 0 units SC ACHS [facility] PRN Reason: Protocol Last Admin: 07/24/17 11:50 Dose: Not Given Levothyroxine Sodium (Synthroid) 100 mcg PO DAILY [facility] Last Admin: 07/24/17 11:16 Dose: 100 mcg Morphine Sulfate (Morphine) 2 mg IVP Q4H PRN PRN Reason: Pain, moderate (4-7) Last Admin: 07/24/17 11:35 Dose: 2 mg Ondansetron HCl (Zofran Inj) 4 mg IVP Q4H PRN PRN Reason: Nausea/Vomiting Last Admin: 07/23/17 20:02 Dose: 4 mg Pantoprazole Sodium (Protonix Ec Tab) 40 mg PO DAILY [facility] Last Admin: 07/24/17 11:16 Dose: 40 mg Polyethylene Glycol (Miralax) 17 gm PO BID [facility] Last Admin: 07/24/17 11:15 Dose: 17 gm Potassium Phos/Sodium Phos (Neutra-Phos) 1 pkt PO BID [facility] Stop: 07/26/17 18:01 Last Admin: 07/24/17 11:16 Dose: 1 pkt - Labs Labs: 07/24/17 06:06 07/24/17 06:06 PT 29.5 SECONDS (9.4-12.5) H 07/24/17 06:06 INR 2.52 (0.93-1.08) H 07/24/17 06:06 APTT 32.2 Seconds (25.1-36.5) 07/23/17 06:20 Attending/Attestation - Attestation I have personally seen and examined this patient.: Yes I have fully participated in the care of the patient.: Yes I have reviewed all pertinent clinical information, including history, physical exam and plan: Yes Notes (Text): 07/24/17 17:17 Attending note: Patient seen and examined with resident. Patient is a 72 year old Egyptian male with PMH of metastatic cholangiocarcinoma with liver mets, status-post drainage of a subcapsular hematoma, status post biliary drain placement, s/p chemotherapy with cisplatin and gemcitabine, bilateral lower extremity DVT is admitted with fever, worsening abdominal distention, constipation, generalized weakness, found to have massive ascites and bilateral pleural effusions. Generalized deconditioning secondary to advanced cancer. CT chest abdomen and pelvis showed massive ascites, probable omental metastasis with bilateral pleural effusion and atelectasis. CT reviewed with Dr. Duarte Guerra in detail. s/p biliary drain change and paracentesis today. Bilateral lower extremity DVT; on Coumadin. INR is 2.5. Follow-up INR in a.m. start Coumadin tomorrow. Fever; resolved. Blood culture is negative. Case discussed with ID in detail. Started on IV cefepime. Cholangiocarcinoma; case discussed with oncologist in detail. Patient was already evaluated by [facility] hepatology team. Prognosis is poor. Palliative care evaluation requested. Upon discharge patient will be referred to [facility] clinic.
--- NOTE | 2017-07-24 12:32 | VASCULAR ---
PROCEDURE: Internal/external biliary tube change Ultrasound-guided paracentesis HISTORY: Metastatic cholangiocarcinoma. Needs tube change. PHYSICIAN(S): Duarte Guerra MD. TECHNIQUE: The relative risks and indications of the procedure were explained the patient were substation wireman consent obtained. Patient placed supine on the arteriogram table in the biliary drain prepped and draped usual sterile fashion. Conscious sedation monitoring were provided throughout the procedure by a nurse. Contrast was injected a cholangiogram performed. 0.035 glidewire was advanced in the duodenum. The old tube was removed. A new 14 [place] internal/external biliary drain was advanced over the guidewire. Sideholes were carefully positioned. The catheter was secured. The catheter was flushed and its position confirmed with injection of contrast. FINDINGS: There is a malignant obstruction near the hilum. No para contrast enters the duodenum. A new 14 [place] internal/external drain was positioned with contrast entering the duodenum. IMPRESSION: 1. Percutaneous change of the patient's internal/external biliary drain. 2. Ultrasound-guided paracentesis. 3000 cc of bilious clear yellow fluid were removed. No labs were sent due to the recent paracentesis
[2017-07-24] MEDS ORDERED: Enoxaparin 40 mg Syringe SC SCH (15:00)
[2017-07-24] MEDS: Cefepime 1gm in NS 100ml 1 GM/100 ML BAG IVPB SCH ×2 (17:40→22:10)
[2017-07-24] MEDS ORDERED: Piperacillin/Tazobact 3.375 gm 100 ML IVPB SCH (18:00)
--- NOTE | 2017-07-24 18:56 | CT ---
PROCEDURE: CT Abdomen and Pelvis with and without intravenous contrast HISTORY: cholangioca COMPARISON: None. TECHNIQUE: Axial images of the abdomen were obtained in the pre contrast, hepatic arterial and portal venous phases of enhancement. Coronal and sagittal reformats were generated. Contrast dose: 150 mL Omnipaque 350 Radiation dose: Total exam DLP = 1186.70 mGy-cm. This CT exam was performed using one or more of the following dose reduction techniques: Automated exposure control, adjustment of the mA and/or kV according to patient size, and/or use of iterative reconstruction technique. FINDINGS: LOWER THORAX: Moderate right and small left pleural effusion. Small right pneumothorax. Recommend correlation with chest radiography. This constitutes right hydro pneumothorax. Consider evaluation with CT chest. Right lower lobe segmental atelectasis secondary to pleural effusion. Left lower lobe subsegmental atelectasis. LIVER: Normal size. Ill-defined mass in the inferior right hepatic lobe, 4.6 x 4.9 x 5.6 cm. Heterogeneous attenuation. Consistent with stated diagnosis of cholangiocarcinoma. However, features are not specific. There is a low-attenuation mass in the lateral right hepatic lobe, 2.1 cm diameter. Predominantly low attenuation with a thin rim. Several other very small low-attenuation masses are identified. Previously identified extensive biliary ductal dilatation has resolved. There is some gas seen within the left hepatic lobe bile ducts. Percutaneous biliary catheter is seen extending to the duodenum. Flattened low-attenuation lesion along the posterior inferior right hepatic lobe, roughly 1.7 x 5.9 x 6.6 cm. . Possible subcapsular collection. Cannot rule out abscess. Doubt neoplasm. GALLBLADDER AND BILE DUCTS: Unremarkable. PANCREAS: Unremarkable. No gross lesion or ductal dilatation. SPLEEN: Unremarkable. ADRENALS: Unremarkable. No mass. KIDNEYS AND URETERS: 3.5 cm left upper pole renal cortical cyst. Please note that this was incorrectly described as a lower pole cyst on prior CT examination. VASCULATURE: Unremarkable. No aortic aneurysm. BOWEL: Unremarkable. No obstruction. No gross mural thickening. APPENDIX: Not identified. PERITONEUM: Extensive ascites. Probable omental metastasis in the anterior upper abdomen. LYMPH NODES: Unremarkable. No enlarged lymph nodes. BLADDER: Poorly distended. No gross abnormality. REPRODUCTIVE: Normal prostate BONES: No acute fracture. OTHER FINDINGS: None. IMPRESSION: Right hydro pneumothorax. Recommend further evaluation. See above. Small left pleural effusion. Right lower lobe segmental atelectasis. Resolved intrahepatic biliary dilatation. Percutaneous biliary drainage catheter. Intrahepatic biliary gas in left hepatic lobe. Multiple hepatic masses. Unchanged from 07/23/2017. Possible subcapsular collection along posterior inferior border of right hepatic lobe. Cannot rule out abscess. Extensive ascites. Omental metastasis suspected. The presence of the right hydro pneumothorax was discussed by telephone with the patient's nurse, Melisa, at 6:50 p.m. on 07/24/2017.
[2017-07-24] MEDS ORDERED: Sodium Chloride 0.9% 1,000 ML IV SCH (19:26)
--- NOTE | 2017-07-24 19:43 | CP.PCM.PN ---
<Pacheco Bullard - Last Filed: 07/24/17 19:43> Subjective - Date & Time of Evaluation Date of Evaluation: 07/24/17 Time of Evaluation: 19:39 - Subjective Subjective: Call received from patient's nurse Melisa stating radiology called for findings of patient's CT liver which revealed right hydro pneumothorax. Patient was examined at bedside in no acute distress seen laying comfortably in bed. States he does not have pain in his abdomen but admits to pain in his back. Vitals are stable. CT of chest was ordered and general surgery was consulted regarding finding of right hydropneumothorax for further evaluation. Discussed with Dr. Andrew Bullard PGY1 Objective - Vital Signs/Intake and Output Vital Signs (last 24 hours): Temp Pulse Resp BP Pulse Ox 98.4 F 109 H 20 107/70 97 07/24/17 18:00 07/24/17 18:00 07/24/17 18:00 07/24/17 18:00 07/24/17 18:00 - Medications Medications: Current Medications Al Hydrox/Mg Hydrox/Simethicone (Maalox Plus 30 Ml) 30 ml PO Q4 PRN PRN Reason: INDIGESTION Albumin Human (Albumin Human 25% (12.5 Gm/50 Ml)) 12.5 gm IV Q8 [facility] Stop: 07/25/17 22:00 Last Admin: 07/24/17 14:22 Dose: Not Given Docusate Sodium (Colace) 100 mg PO TID [facility] Last Admin: 07/24/17 17:36 Dose: 100 mg Cefepime HCl (Maxipime 1gm) 1 gm in 100 mls @ 100 mls/hr IVPB Q8 [facility] PRN Reason: Protocol Last Admin: 07/24/17 17:40 Dose: 100 mls/hr Sodium Chloride (Sodium Chloride 0.9%) 1,000 mls @ 50 mls/hr IV .Q20H [facility] Insulin Human Lispro (Humalog Low) 0 units SC ACHS [facility] PRN Reason: Protocol Last Admin: 07/24/17 17:37 Dose: Not Given Levothyroxine Sodium (Synthroid) 100 mcg PO DAILY [facility] Last Admin: 07/24/17 11:16 Dose: 100 mcg Morphine Sulfate (Morphine) 3 mg IVP Q4H PRN PRN Reason: Pain, severe (8-10) Ondansetron HCl (Zofran Inj) 4 mg IVP Q4H PRN PRN Reason: Nausea/Vomiting Last Admin: 07/23/17 20:02 Dose: 4 mg Pantoprazole Sodium (Protonix Ec Tab) 40 mg PO DAILY [facility] Last Admin: 07/24/17 11:16 Dose: 40 mg Polyethylene Glycol (Miralax) 17 gm PO BID [facility] Last Admin: 07/24/17 17:37 Dose: 17 gm Potassium Phos/Sodium Phos (Neutra-Phos) 1 pkt PO BID [facility] Stop: 07/26/17 18:01 Last Admin: 07/24/17 17:37 Dose: 1 pkt - Labs Labs: 07/24/17 06:06 07/24/17 06:06 PT 29.5 SECONDS (9.4-12.5) H 07/24/17 06:06 INR 2.52 (0.93-1.08) H 07/24/17 06:06 APTT 32.2 Seconds (25.1-36.5) 07/23/17 06:20 <Gómez Morales - Last Filed: 07/25/17 15:16> Objective - Vital Signs/Intake and Output Vital Signs (last 24 hours): Temp Pulse Resp BP Pulse Ox 99.6 F 91 H 24 100/68 98 07/25/17 07:46 07/25/17 07:46 07/25/17 07:46 07/25/17 11:14 07/25/17 07:46 Intake and Output: 07/25/17 07/25/17 06:59 18:59 Intake Total 660 840 Output Total 300 250 Balance 360 590 - Medications Medications: Current Medications Al Hydrox/Mg Hydrox/Simethicone (Maalox Plus 30 Ml) 30 ml PO Q4 PRN PRN Reason: INDIGESTION Albumin Human (Albumin Human 25% (12.5 Gm/50 Ml)) 12.5 gm IV Q8 [facility] Stop: 07/25/17 22:00 Last Admin: 07/25/17 13:23 Dose: 12.5 gm Docusate Sodium (Colace) 100 mg PO TID [facility] Last Admin: 07/25/17 13:22 Dose: 100 mg Cefepime HCl (Maxipime 1gm) 1 gm in 100 mls @ 100 mls/hr IVPB Q8 [facility] PRN Reason: Protocol Last Admin: 07/25/17 13:22 Dose: 100 mls/hr Iron Sucrose 100 mg/ Sodium (Chloride) 105 mls @ 210 mls/hr IVPB DAILY [facility] Stop: 07/26/17 11:00 Last Admin: 07/25/17 11:18 Dose: 210 mls/hr Insulin Human Lispro (Humalog Low) 0 units SC ACHS [facility] PRN Reason: Protocol Last Admin: 07/25/17 12:37 Dose: Not Given Levothyroxine Sodium (Synthroid) 100 mcg PO DAILY [facility] Last Admin: 07/25/17 11:18 Dose: 100 mcg Morphine Sulfate (Morphine) 3 mg IVP Q4H PRN PRN Reason: Pain, severe (8-10) Last Admin: 07/25/17 11:17 Dose: 3 mg Ondansetron HCl (Zofran Inj) 4 mg IVP Q4H PRN PRN Reason: Nausea/Vomiting Last Admin: 07/23/17 20:02 Dose: 4 mg Pantoprazole Sodium (Protonix Ec Tab) 40 mg PO DAILY [facility] Last Admin: 07/25/17 11:18 Dose: 40 mg Polyethylene Glycol (Miralax) 17 gm PO BID [facility] Last Admin: 07/25/17 11:17 Dose: 17 gm Potassium Phos/Sodium Phos (Neutra-Phos) 1 pkt PO BID [facility] Stop: 07/26/17 18:01 Last Admin: 07/25/17 11:17 Dose: 1 pkt Warfarin Sodium (Coumadin) 4 mg PO 1800 [facility] PRN Reason: Protocol - Labs Labs: 07/25/17 06:28 07/25/17 06:28 PT 21.9 SECONDS (9.4-12.5) H 07/25/17 06:28 INR 1.88 (0.93-1.08) H 07/25/17 06:28 APTT 32.2 Seconds (25.1-36.5) 07/23/17 06:20 Attending/Attestation - Attestation I have personally seen and examined this patient.: Yes I have fully participated in the care of the patient.: Yes I have reviewed all pertinent clinical information, including history, physical exam and plan: Yes Notes (Text): 07/25/17 15:10 Attending note: Patient seen and examined with resident. Patient is a 72 year old [place]ian male with PMH of metastatic cholangiocarcinoma with liver mets, status-post drainage of a subcapsular hematoma, status post biliary drain placement, s/p chemotherapy with cisplatin and gemcitabine, bilateral lower extremity DVT is admitted with fever, worsening abdominal distention, constipation, generalized weakness, found to have massive ascites and bilateral pleural effusions. Generalized deconditioning secondary to advanced cancer. CT chest abdomen and pelvis showed massive ascites, probable omental metastasis with bilateral pleural effusion and atelectasis. CT reviewed with Dr. Duarte Guerra in detail. s/p biliary drain change and paracentesis. right pneumohemothorax. Patient is clinically stable. No hypoxia. Surgery evaluation appreciated. Bilateral lower extremity DVT; on Coumadin. INR is 1.88. continue Coumadin. Fever; resolved. Blood culture is negative. Case discussed with ID in detail. Started on IV cefepime. Prognosis is poor. case discussed with patient's son in detail Regarding patient's general medical condition/recurrent ascites and pneumohydrothorax. patient is full code for now. Patient's family will discuss with oncology for further treatment options/ prognosis. Upon discharge patient will be referred to [facility]. 07/25/17 15:14
[2017-07-24] MEDS: Morphine 4 mg/ml ISec IVP PRN (21:01)
--- NOTE | 2017-07-24 22:07 | CP.PCM.CON ---
History of Present Illness - History of Present Illness History of Present Illness: General surgery consult note for Dr. Everett Cano, PGY-1 Pt S & E at bedside at 0850. History as per EMR and pt via [facility] and safety representative -Kelly Wynn #[id number] 72 yo Morrocan Italian & Indonesian speaking male w/PMH sig for 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 s/p PTC with IR complicated by perihepatic fluid collection s/p drainage later with placement of an internal/external biliary drainage catheter & recurrent ascites consulted for right hydropneumothorax s/p paracentesis and exchange of biliary catheter with IR on day of evaluation. Pt reports back pain, lower abdominal pain, some "shortness of breath" due to "lots of mucus in his throat" and "inability to walk for the past 14 days". Admits to lower extremity swelling, constipation. Denies chest pain, N & V, F & C. CT chest s/p IR intervention with findings positive for hydropneumothorax of right lung- pending official report PMH: 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 s/p PTC with IR complicated by perihepatic fluid collection s/p drainage later with placement of an internal/external biliary drainage catheter, HTN, DM, CAD s/p stents, obstructive jaundice, possible DM, bilateral DVTs on Warfarin PSHx: TURP, thyroidectomy, percutaneous biliary stent placement, PCI All: NKDA SH: Former tobacco use (~32 years, quit 15 years ago), denies EtOH or illicit drug use Review of Systems - Review of Systems All systems: reviewed and no additional remarkable complaints except - Constitutional Constitutional: absent: Chills, Fever - Cardiovascular Cardiovascular: Leg Edema. absent: Chest Pain - Respiratory Respiratory: Excessive Mucous Production. absent: Cough, Stridor - Gastrointestinal Gastrointestinal: Abdominal Pain, Constipation. absent: Nausea, Vomiting - Genitourinary Genitourinary: absent: Change in Urinary Stream - Musculoskeletal Musculoskeletal: Back Pain (lower) - Integumentary Integumentary: absent: New Lesions Past Patient History - Infectious Disease Hx of Infectious Diseases: None - Past Medical History & Family History Past Medical History?: Yes - Past Social History Smoking Status: Former Smoker - CARDIAC Hx Cardiac Disorders: Yes Hx Hypertension: Yes - PULMONARY Hx Respiratory Disorders: No - NEUROLOGICAL Hx Neurological Disorder: No - HEENT Hx HEENT Problems: Yes - RENAL Hx Chronic Kidney Disease: No - ENDOCRINE/METABOLIC Hx Diabetes Mellitus Type 2: Yes - HEMATOLOGICAL/ONCOLOGICAL Hx Cancer: Yes Hx Chemotherapy: Yes - INTEGUMENTARY Hx Dermatological Problems: No - MUSCULOSKELETAL/RHEUMATOLOGICAL Hx Musculoskeletal Disorders: Yes Hx Back Pain: Yes Hx Falls: No - GASTROINTESTINAL Other/Comment: Biliary Drain placed one month ago 05/2017Liver cancer- Chemotherapy - GENITOURINARY/GYNECOLOGICAL Hx Prostate Problems: Yes - PSYCHIATRIC Hx Psychophysiologic Disorder: No Hx Substance Use: No - SURGICAL HISTORY Hx Cardiac Catheterization: Yes Hx Coronary Stent: Yes - ANESTHESIA Hx Anesthesia: Yes Hx Anesthesia Reactions: Yes Hx Malignant Hyperthermia: No Meds Allergies/Adverse Reactions: Allergies Allergy/AdvReac Type Severity Reaction Status Date / Time No Known Allergies Allergy Verified 06/21/17 00:56 - Medications Medications: Current Medications Al Hydrox/Mg Hydrox/Simethicone (Maalox Plus 30 Ml) 30 ml PO Q4 PRN PRN Reason: INDIGESTION Albumin Human (Albumin Human 25% (12.5 Gm/50 Ml)) 12.5 gm IV Q8 [facility] Stop: 07/25/17 22:00 Last Admin: 07/24/17 14:22 Dose: Not Given Docusate Sodium (Colace) 100 mg PO TID [facility] Last Admin: 07/24/17 17:36 Dose: 100 mg Furosemide (Lasix) 20 mg IVP ONCE ONE Stop: 07/25/17 08:01 Cefepime HCl (Maxipime 1gm) 1 gm in 100 mls @ 100 mls/hr IVPB Q8 [facility] PRN Reason: Protocol Last Admin: 07/24/17 17:40 Dose: 100 mls/hr Iron Sucrose 100 mg/ Sodium (Chloride) 105 mls @ 210 mls/hr IVPB DAILY [facility] Stop: 07/26/17 11:00 Insulin Human Lispro (Humalog Low) 0 units SC ACHS [facility] PRN Reason: Protocol Last Admin: 07/24/17 17:37 Dose: Not Given Levothyroxine Sodium (Synthroid) 100 mcg PO DAILY [facility] Last Admin: 07/24/17 11:16 Dose: 100 mcg Morphine Sulfate (Morphine) 3 mg IVP Q4H PRN PRN Reason: Pain, severe (8-10) Last Admin: 07/24/17 21:01 Dose: 3 mg Ondansetron HCl (Zofran Inj) 4 mg IVP Q4H PRN PRN Reason: Nausea/Vomiting Last Admin: 07/23/17 20:02 Dose: 4 mg Pantoprazole Sodium (Protonix Ec Tab) 40 mg PO DAILY [facility] Last Admin: 07/24/17 11:16 Dose: 40 mg Polyethylene Glycol (Miralax) 17 gm PO BID [facility] Last Admin: 07/24/17 17:37 Dose: 17 gm Potassium Phos/Sodium Phos (Neutra-Phos) 1 pkt PO BID [facility] Stop: 07/26/17 18:01 Last Admin: 07/24/17 17:37 Dose: 1 pkt Physical Exam - Constitutional Appears: Non-toxic, Cachectic, Chronically Ill - Head Exam Head Exam: ATRAUMATIC, NORMAL INSPECTION, NORMOCEPHALIC - Eye Exam Eye Exam: EOMI, Normal appearance - ENT Exam ENT Exam: Mucous Membranes Moist, Normal Exam - Neck Exam Neck exam: Positive for: Full Rom, Normal Inspection - Respiratory Exam Respiratory Exam: Decreased Breath Sounds (right lung bases). absent: Accessory Muscle Use, Chest Wall Tenderness, Clear to Auscultation Bilateral, Prolonged Expiratory Phase, Rales, Rhonchi, Wheezes, Respiratory Distress, Stridor Additional comments: right chest wall with port in place - Cardiovascular Exam Cardiovascular Exam: Tachycardia, +S1, +S2 - GI/Abdominal Exam GI & Abdominal Exam: Distended (mildly), Hypoactive Bowel Sounds, Tenderness ( lower quadrants). absent: Firm, Guarding, Hernia, Rebound, Rigid - Extremities Exam Extremities exam: Positive for: pedal edema (2+ pitting edema bilaterally) - Neurological Exam Neurological exam: Alert, CN II-XII Intact, Oriented x3 - Psychiatric Exam Psychiatric exam: Normal Affect, Normal Mood - Skin Skin Exam: Dry, Intact, Normal Color, Warm Results - Vital Signs Recent Vital Signs: Last Vital Signs Temp 98.4 F 07/24/17 18:00 Pulse 109 H 07/24/17 18:00 Resp 20 07/24/17 18:00 BP 107/70 07/24/17 18:00 Pulse Ox 97 07/24/17 18:00 - Labs Result Diagrams: 07/24/17 06:06 07/24/17 06:06 Labs: Laboratory Results - last 24 hr 07/24/17 07/24/17 07/24/17 06:06 06:06 06:06 WBC 9.4 RBC 3.26 L Hgb 9.8 L Hct 29.1 L MCV 89.3 MCH 30.1 MCHC 33.7 RDW 18.2 H Plt Count 424 MPV 9.4 Gran % 79.3 H Lymph % (Auto) 11.5 L Catron % (Auto) 9.0 H Eos % (Auto) 0.1 L Baso % (Auto) 0.1 Gran # 7.47 H Lymph # (Auto) 1.1 L Catron # (Auto) 0.9 H Eos # (Auto) 0.0 Baso # (Auto) 0.01 PT 29.5 H INR 2.52 H Sodium 134 Potassium 3.9 Chloride 97 L Carbon Dioxide 30 Anion Gap 11 BUN 18 Creatinine 0.8 Est GFR ( Amer) > 60 Est GFR (Non-Af Amer) > 60 POC Glucose (mg/dL) Random Glucose 110 Calcium 7.5 L Phosphorus 2.3 L Magnesium 2.3 H Ferritin 992.0 Total Bilirubin 1.7 H AST 104 H D ALT 98 H Alkaline Phosphatase 736 H D Total Protein 5.6 L Albumin 2.5 L Globulin 3.1 Albumin/Globulin Ratio 0.8 L Vitamin B12 > 1000 H Folate 12.0 07/24/17 07/24/17 15:56 21:24 WBC RBC Hgb Hct MCV MCH MCHC RDW Plt Count MPV Gran % Lymph % (Auto) Catron % (Auto) Eos % (Auto) Baso % (Auto) Gran # Lymph # (Auto) Catron # (Auto) Eos # (Auto) Baso # (Auto) PT INR Sodium Potassium Chloride Carbon Dioxide Anion Gap BUN Creatinine Est GFR ( Amer) Est GFR (Non-Af Amer) POC Glucose (mg/dL) 154 H 126 H Random Glucose Calcium Phosphorus Magnesium Ferritin Total Bilirubin AST ALT Alkaline Phosphatase Total Protein Albumin Globulin Albumin/Globulin Ratio Vitamin B12 Folate Assessment & Plan - Assessment and Plan (Free Text) Assessment: 72M w/PMH sig for 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 s/p PTC with IR complicated by perihepatic fluid collection s/p drainage later with placement of an internal/external biliary drainage catheter & recurrent ascites consulted for right hydropneumothorax s/p paracentesis and exchange of biliary catheter with IR Plan: pt currently stable O2 saturation over 97-98% No respiratory distress at this time Monitor breathing status May need chest tube if in respiratory distress Pt consented for chest tube - consent in chart Son informed of possible chest tube placement Will monitor Further recs pending attending evaluation MIHAELA attending Rachael, PGY-1 - Date & Time Date: 07/24/17 Time: 21:00
--- NOTE | 2017-07-24 23:01 | CP.PCM.PN ---
Subjective - Date & Time of Evaluation Date of Evaluation: 07/24/17 Time of Evaluation: 12:30 - Subjective Subjective: Infectious Disease Follow Up: July 24, 2017 72 singaporean speaking Bhutanese male with a PMHx of cholangiocarcinoma with liver mets, hypertension, diabetes, CAD s/p stents, obstructive jaundice, and intrahepatic ducal dilatation s/p biliary drain placement, presents to the emergency department for several days of constipation, worsening abdominal distension and tenderness specifically on the left quadrants, near syncopal episode, and occasional SOB. Patient was recently admitted to [facility] and discharged 8 days ago. Poor PO intake is becoming the patient's normal as per the son. CT abdomen done on current hospitalization is now showing massive ascites, possible omental metastasis, and multifocal hepatic neoplasm. Patient was seen and examined at bedside. History of lower extremity swelling and tenderness. Patient denies chills, chest pains, nausea, vomiting, diarrhea, dysuria. Restarted on Zosyn for antibiotic coverage. Fever of 102.7 F on admission. Cultures negative to date. On Cefepime IV. Temperature as low as 97.4. Objective - Vital Signs/Intake and Output Vital Signs (last 24 hours): Temp Pulse Resp BP Pulse Ox 98.4 F 109 H 20 107/70 97 07/24/17 18:00 07/24/17 18:00 07/24/17 18:00 07/24/17 18:00 07/24/17 18:00 Intake and Output: 07/24/17 07/25/17 18:59 06:59 Intake Total 660 Output Total 300 Balance 360 - Medications Medications: Current Medications Al Hydrox/Mg Hydrox/Simethicone (Maalox Plus 30 Ml) 30 ml PO Q4 PRN PRN Reason: INDIGESTION Albumin Human (Albumin Human 25% (12.5 Gm/50 Ml)) 12.5 gm IV Q8 [facility] Stop: 07/25/17 22:00 Last Admin: 07/24/17 22:01 Dose: 12.5 gm Docusate Sodium (Colace) 100 mg PO TID [facility] Last Admin: 07/24/17 17:36 Dose: 100 mg Furosemide (Lasix) 20 mg IVP ONCE ONE Stop: 07/25/17 08:01 Cefepime HCl (Maxipime 1gm) 1 gm in 100 mls @ 100 mls/hr IVPB Q8 [facility] PRN Reason: Protocol Last Admin: 07/24/17 22:10 Dose: 100 mls/hr Iron Sucrose 100 mg/ Sodium (Chloride) 105 mls @ 210 mls/hr IVPB DAILY [facility] Stop: 07/26/17 11:00 Insulin Human Lispro (Humalog Low) 0 units SC ACHS [facility] PRN Reason: Protocol Last Admin: 07/24/17 17:37 Dose: Not Given Levothyroxine Sodium (Synthroid) 100 mcg PO DAILY [facility] Last Admin: 07/24/17 11:16 Dose: 100 mcg Morphine Sulfate (Morphine) 3 mg IVP Q4H PRN PRN Reason: Pain, severe (8-10) Last Admin: 07/24/17 21:01 Dose: 3 mg Ondansetron HCl (Zofran Inj) 4 mg IVP Q4H PRN PRN Reason: Nausea/Vomiting Last Admin: 07/23/17 20:02 Dose: 4 mg Pantoprazole Sodium (Protonix Ec Tab) 40 mg PO DAILY [facility] Last Admin: 07/24/17 11:16 Dose: 40 mg Polyethylene Glycol (Miralax) 17 gm PO BID [facility] Last Admin: 07/24/17 17:37 Dose: 17 gm Potassium Phos/Sodium Phos (Neutra-Phos) 1 pkt PO BID [facility] Stop: 07/26/17 18:01 Last Admin: 07/24/17 17:37 Dose: 1 pkt - Labs Labs: 07/24/17 06:06 07/24/17 06:06 PT 29.5 SECONDS (9.4-12.5) H 07/24/17 06:06 INR 2.52 (0.93-1.08) H 07/24/17 06:06 APTT 32.2 Seconds (25.1-36.5) 07/23/17 06:20 - Constitutional Appears: Non-toxic, No Acute Distress, Chronically Ill - Head Exam Head Exam: ATRAUMATIC, NORMOCEPHALIC - Eye Exam Eye Exam: EOMI, PERRL Pupil Exam: NORMAL ACCOMODATION, PERRL - ENT Exam ENT Exam: Mucous Membranes Moist, Normal External Ear Exam, TM's Normal Bilaterally - Neck Exam Neck Exam: Full ROM, Normal Inspection - Respiratory Exam Respiratory Exam: Decreased Breath Sounds. absent: Rales, Rhonchi, Wheezes Additional comments: crackles - Cardiovascular Exam Cardiovascular Exam: REGULAR RHYTHM, RRR, +S1, +S2 - GI/Abdominal Exam GI & Abdominal Exam: Distended, Soft Additional comments: ascites - Extremities Exam Extremities Exam: Full ROM Additional comments: general weakness and moderate lower body edema. - Neurological Exam Neurological Exam: Alert, Awake, CN II-XII Intact, Oriented x3 - Psychiatric Exam Psychiatric exam: Normal Affect, Normal Mood - Skin Additional comments: jaundiced. Assessment and Plan - Assessment and Plan (Free Text) Assessment: 72 yo [place] male with significant abdominal distension, SOB, difficulty ambulating, and near syncopal episodes. CT of abdomen showing possible omental metastasis. Rapid accumulation of ascitic fluid given paracentesis and thoracentesis. Given CT scan of the abdomen, it appears the patient's cholangiocarcinoma is worsening with increased metastasis. Fevers could be secondary to malignancy. There are small bilateral pleural effusions bilaterally. Zosyn given for a potential pneumonia. The patient does not have leukocytosis. Could check procalcitonin and if significantly elevated, case for pneumonia can be made. Continue on Cefepime IV. Case discussed with Dr. Morales. Case discussed with patient's son. Thank you for allowing me to participate in the care of the patient, we will follow with you.
--- NOTE | 2017-07-25 01:21 | PN ---
DATE: 07/24/[address] Headley: SUBJECTIVE: Patient is a 72-year-old male seen lying awake in bed, reporting 5/10 pain to the right upper quadrant. He is status post paracentesis today, approximately 3 liters of fluid with the patient pointing at the pain scale chart on the wall as he does not speak Luxembourger, with minimal Luxembourger, with his son as the break up worker. The son was at Dr. Headley's office earlier today with conversation held regarding followup with Dr. Guerra for possible surgery in the future with recommendations for a triple-phase liver scan, which was done. Patient is now off Coumadin despite a therapeutic INR of 2.5 with restart to be considered as he has a history of DVT with the patient also now being given albumin as per Dr. Dugan's recommendation. Saline at 100 mL an hour was being given and this has since been discontinued, with the patient's recent hospital stay evaluated with a TSH noted to be 46 on 07/20/2017; with Synthroid being given, we will repeat his TSH. It should be noted that the patient refused to have his IV fluids continue since yesterday, pointing to his legs as they were swollen. We will now discontinue his IV fluids as the patient refuses them in any event. He does appear more alert this visit. PHYSICAL EXAMINATION: VITAL SIGNS: Temperature 98.4, pulse 109, respirations 20, blood pressure 107/70, pulse ox 97%. HEENT: Icteric sclerae. Tongue is dry. NECK: Supple. HEART: Regular rate. Occasional ectopic beats. LUNGS: Decreased breath sounds at the bases. ABDOMEN: Distended status post paracentesis 3 liters today with dressing dry and intact. Minimal tenderness to general palpation, right upper quadrant. EXTREMITIES: +1 edema of the feet bilaterally. NEUROLOGIC: Awake and alert. SKIN: Warm and dry. LABORATORY DATA: Patient's labs were done. White blood cell count of 9.4, hemoglobin 9.8, hematocrit 29.1, platelet count 424,000. His INR today was 2.5. Fresh frozen plasma was given prior to his paracentesis. His comprehensive metabolic panel showed a potassium of 3.9, corrected from 3 yesterday with a calcium of 7.5, phosphorus of 2.3, percent iron saturation of 7%, T bili of 1.7 down from 3.5 yesterday with an AST of 104 down from 251 yesterday, ALT of 98 down from 149 yesterday. His folate is normal at 12 with a B12 greater than a 1000, also within normal range. The patient's triple-phase liver CT was done earlier today. It was read as right hydropneumothorax, recommend further evaluation, see above. Small left pleural effusion, right lower lobe segmental atelectasis, resolved intrahepatic biliary dilatation, percutaneous biliary drain catheter, intrahepatic biliary gas in the left hepatic lobe, multiple hepatic masses unchanged from 07/23/2017, possible subcapsular collection along the posterior inferior border of the right hepatic lobe, cannot rule out an abscess, extensive ascites, omental metastasis suspected. Presence of a right hydropneumothorax was discussed the patient's nurse. Patient is also status post catheterization of his heart with finding significant for . This will be reviewed. Patient did have an exchange of his internal and external biliary tube with Dr. Duarte Guerra earlier today with a paracentesis of 3000 mL afterwards. ASSESSMENT: For this patient is that of cholangiocarcinoma with liver metastases, elevated temperature - rule out sepsis, hypertension, diabetes, atherosclerotic cardiovascular disease with stent, obstructive jaundice, pleural effusion, ascites, history of fall, deep vein thrombosis, new right hydropneumothorax. PLAN: For this patient, after conversation with Dr. Haedley, is to continue his present medical regimen as above with further evaluation for pneumothorax as indicated with continuation of his present medical regimen. We will increase his morphine to 3 mg IV every 4 hours p.r.n. severe pain. We will consider giving Lasix after the albumen as was ordered every 8 hours until tomorrow as per Dr. Morales. Continue his IV antibiotics as per Dr. Rodriguez. We will discontinue his IV fluids, recheck his thyroid, TSH, and consider restarting Coumadin with considerations for IV iron for his anemic indices. This is a complex patient with a comprehensive medically necessary and appropriate visit carried out in excess of 30 minutes [id number] time. Also, with patient's son's questions answered to his satisfaction with consideration for eventual followup with possible surgery in the future as indicated. Prognosis for this patient is guarded. Rhett MD Vanessa
[2017-07-25] MEDS: Insulin Lispro (humaLOG) LOW Coverage SC SCH ×5 (01:33→23:31)
--- NOTE | 2017-07-25 06:05 | CP.PCM.PN ---
<TorinNathaly - Last Filed: 07/25/17 11:50> Subjective - Date & Time of Evaluation Date of Evaluation: 07/25/17 Time of Evaluation: 08:00 - Subjective Subjective: GI Fellow PGY4 Progress Note Pt seen and evaluated at bedside, pt with right hydropneumothorax seen on CT Liver s/p paracentesis. Pt hemodynamically stable. Abdominal pain a little better after paracentesis. Pt afebrile since 07/23. ROS: A 12pt ROS was negative except as above. Objective - Vital Signs/Intake and Output Vital Signs (last 24 hours): Temp Pulse Resp BP Pulse Ox 98.4 F 109 H 20 107/70 97 07/24/17 18:00 07/24/17 18:00 07/24/17 18:00 07/24/17 18:00 07/24/17 18:00 Intake and Output: 07/24/17 07/25/17 18:59 06:59 Intake Total 660 Output Total 300 Balance 360 - Medications Medications: Current Medications Al Hydrox/Mg Hydrox/Simethicone (Maalox Plus 30 Ml) 30 ml PO Q4 PRN PRN Reason: INDIGESTION Albumin Human (Albumin Human 25% (12.5 Gm/50 Ml)) 12.5 gm IV Q8 [facility] Stop: 07/25/17 22:00 Last Admin: 07/24/17 22:01 Dose: 12.5 gm Docusate Sodium (Colace) 100 mg PO TID [facility] Last Admin: 07/24/17 17:36 Dose: 100 mg Furosemide (Lasix) 20 mg IVP ONCE ONE Stop: 07/25/17 08:01 Cefepime HCl (Maxipime 1gm) 1 gm in 100 mls @ 100 mls/hr IVPB Q8 [facility] PRN Reason: Protocol Last Admin: 07/24/17 22:10 Dose: 100 mls/hr Iron Sucrose 100 mg/ Sodium (Chloride) 105 mls @ 210 mls/hr IVPB DAILY [facility] Stop: 07/26/17 11:00 Insulin Human Lispro (Humalog Low) 0 units SC ACHS [facility]INA PRN Reason: Protocol Last Admin: 07/25/17 01:33 Dose: Not Given Levothyroxine Sodium (Synthroid) 100 mcg PO DAILY [facility] Last Admin: 06/15/18 11:16 Dose: 100 mcg Morphine Sulfate (Morphine) 3 mg IVP Q4H PRN PRN Reason: Pain, severe (8-10) Last Admin: 07/24/17 21:01 Dose: 3 mg Ondansetron HCl (Zofran Inj) 4 mg IVP Q4H PRN PRN Reason: Nausea/Vomiting Last Admin: 07/23/17 20:02 Dose: 4 mg Pantoprazole Sodium (Protonix Ec Tab) 40 mg PO DAILY [facility] Last Admin: 07/24/17 11:16 Dose: 40 mg Polyethylene Glycol (Miralax) 17 gm PO BID [facility] Last Admin: 07/24/17 17:37 Dose: 17 gm Potassium Phos/Sodium Phos (Neutra-Phos) 1 pkt PO BID [facility] Stop: 07/26/17 18:01 Last Admin: 07/24/17 17:37 Dose: 1 pkt - Labs Labs: 07/24/17 06:06 07/24/17 06:06 PT 29.5 SECONDS (9.4-12.5) H 07/24/17 06:06 INR 2.52 (0.93-1.08) H 07/24/17 06:06 APTT 32.2 Seconds (25.1-36.5) 07/23/17 06:20 - Constitutional Appears: Cachectic, Chronically Ill - Head Exam Head Exam: ATRAUMATIC, NORMAL INSPECTION, NORMOCEPHALIC - Eye Exam Eye Exam: EOMI, Normal appearance, PERRL - ENT Exam ENT Exam: Mucous Membranes Dry - Neck Exam Neck Exam: Normal Inspection - Respiratory Exam Respiratory Exam: Decreased Breath Sounds, NORMAL BREATHING PATTERN - Cardiovascular Exam Cardiovascular Exam: REGULAR RHYTHM, +S1, +S2 - GI/Abdominal Exam GI & Abdominal Exam: Distended, Soft, Tenderness, Normal Bowel Sounds Additional comments: biliary drain - Extremities Exam Extremities Exam: Pedal Edema - Neurological Exam Neurological Exam: Alert, Awake - Psychiatric Exam Psychiatric exam: Normal Affect, Normal Mood - Skin Skin Exam: Dry, Intact, Normal Color, Warm Assessment and Plan - Assessment and Plan (Free Text) Assessment: This is a 72yo male with PMHX significant for 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 1. Hilar cholangiocarcinoma with metastatic disease 2. Malignant ascites 3. Hyperbilirubinemia-improved 4. Febrile illness (TMax 102.7F)-improved 5. Constipation 6. B/L DVT 7. Hydropneumothorax Plan: -Continue supportive care with pain control and anti-emetcis -Patient is s/p IR percutaneous exchange of internal/external biliary drain and paracentesis with 3L removed -NO cell count/culture SENT BY IR to R/O SBP -On broad spectrum antibiotics - ID following, abefrible>24hrs, maybe due to malignancy -Miralax 17g PO BID -Enemas as needed -Diet as tolerated -Hydropneumothorax s/p paracentesis, surgery following -No plan for any GI intervention at this time -Please call with any questions or concerns <Rahul Oreilly - Last Filed: 07/25/17 12:27> Objective - Vital Signs/Intake and Output Vital Signs (last 24 hours): Temp Pulse Resp BP Pulse Ox 99.6 F 91 H 24 100/68 98 07/25/17 07:46 07/25/17 07:46 07/25/17 07:46 07/25/17 11:14 07/25/17 07:46 Intake and Output: 07/25/17 07/25/17 06:59 18:59 Intake Total 660 Output Total 300 Balance 360 - Medications Medications: Current Medications Al Hydrox/Mg Hydrox/Simethicone (Maalox Plus 30 Ml) 30 ml PO Q4 PRN PRN Reason: INDIGESTION Albumin Human (Albumin Human 25% (12.5 Gm/50 Ml)) 12.5 gm IV Q8 [facility] Stop: 07/25/17 22:00 Last Admin: 07/25/17 06:32 Dose: 12.5 gm Docusate Sodium (Colace) 100 mg PO TID [facility] Last Admin: 07/25/17 11:14 Dose: 100 mg Cefepime HCl (Maxipime 1gm) 1 gm in 100 mls @ 100 mls/hr IVPB Q8 [facility] PRN Reason: Protocol Last Admin: 06/16/18 06:34 Dose: 100 mls/hr Iron Sucrose 100 mg/ Sodium (Chloride) 105 mls @ 210 mls/hr IVPB DAILY [facility] Stop: 07/26/17 11:00 Last Admin: 07/25/17 11:18 Dose: 210 mls/hr Insulin Human Lispro (Humalog Low) 0 units SC ACHS [facility] PRN Reason: Protocol Last Admin: 07/25/17 09:18 Dose: Not Given Levothyroxine Sodium (Synthroid) 100 mcg PO DAILY [facility] Last Admin: 07/25/17 11:18 Dose: 100 mcg Morphine Sulfate (Morphine) 3 mg IVP Q4H PRN PRN Reason: Pain, severe (8-10) Last Admin: 07/25/17 11:17 Dose: 3 mg Ondansetron HCl (Zofran Inj) 4 mg IVP Q4H PRN PRN Reason: Nausea/Vomiting Last Admin: 07/23/17 20:02 Dose: 4 mg Pantoprazole Sodium (Protonix Ec Tab) 40 mg PO DAILY [facility] Last Admin: 07/25/17 11:18 Dose: 40 mg Polyethylene Glycol (Miralax) 17 gm PO BID [facility] Last Admin: 07/25/17 11:17 Dose: 17 gm Potassium Phos/Sodium Phos (Neutra-Phos) 1 pkt PO BID [facility] Stop: 07/26/17 18:01 Last Admin: 07/25/17 11:17 Dose: 1 pkt - Labs Labs: 07/25/17 06:28 07/25/17 06:28 PT 21.9 SECONDS (9.4-12.5) H 07/25/17 06:28 INR 1.88 (0.93-1.08) H 07/25/17 06:28 APTT 32.2 Seconds (25.1-36.5) 07/23/17 06:20 Attending/Attestation - Attestation I have personally seen and examined this patient.: Yes I have fully participated in the care of the patient.: Yes I have reviewed all pertinent clinical information, including history, physical exam and plan: Yes Notes (Text): 07/25/17 12:25 I have seen and examined patient with GI fellow. In brief, this is a 72 year old male with history of cholangiocarcinoma, metastatic to liver and peritoneum on palliative chemotherapy, recurrent malignant ascites, DVT, HTN, DM, CAD who presents to hospital with complaint of near syncopal episode. GI called for evaluation of worsening ascites. s/p biliary drain exchange and paracentesis by IR yesterday of 3 lts. No fluid sent to the lab to rule out SBP. Continue antibiotics. Low sodium diet. Follow oncology recommendations. - No planned GI intervention given patient with advanced disease - Thank you for letting us partcipate in the care of your patient
--- NOTE | 2017-07-25 06:12 | CP.PCM.PN ---
Subjective - Date & Time of Evaluation Date of Evaluation: 07/25/17 Time of Evaluation: 08:23 - Subjective Subjective: General surgery progress note for Dr Everett Cano, PGY-1 Pt S & E at bedside at 0750. Ondemand Luxem[place]ish intrepretor used at bedside. Pt c/o of biliary drain dressing frequently saturated - was informed to ask nursing to change dressing as needed. Pt reports continued lower abdominal pain /low back pain. Denies Chest pain, SOB, problems breathing. Is sitting up in chair, resting comfortably. Was monitored closely overnight for respiratory distress/poor O2 saturation - pt consistently saturating 97-98% overnight, no distress. Objective - Vital Signs/Intake and Output Vital Signs (last 24 hours): Temp Pulse Resp BP Pulse Ox 98.4 F 109 H 20 107/70 97 07/24/17 18:00 07/24/17 18:00 07/24/17 18:00 07/24/17 18:00 07/24/17 18:00 Intake and Output: 07/24/17 07/25/17 18:59 06:59 Intake Total 660 Output Total 300 Balance 360 - Medications Medications: Current Medications Al Hydrox/Mg Hydrox/Simethicone (Maalox Plus 30 Ml) 30 ml PO Q4 PRN PRN Reason: INDIGESTION Albumin Human (Albumin Human 25% (12.5 Gm/50 Ml)) 12.5 gm IV Q8 [facility] Stop: 07/25/17 22:00 Last Admin: 07/24/17 22:01 Dose: 12.5 gm Docusate Sodium (Colace) 100 mg PO TID [facility] Last Admin: 07/24/17 17:36 Dose: 100 mg Furosemide (Lasix) 20 mg IVP ONCE ONE Stop: 07/25/17 08:01 Cefepime HCl (Maxipime 1gm) 1 gm in 100 mls @ 100 mls/hr IVPB Q8 [facility] PRN Reason: Protocol Last Admin: 07/24/17 22:10 Dose: 100 mls/hr Iron Sucrose 100 mg/ Sodium (Chloride) 105 mls @ 210 mls/hr IVPB DAILY [facility] Stop: 07/26/17 11:00 Insulin Human Lispro (Humalog Low) 0 units SC ACHS [facility] PRN Reason: Protocol Last Admin: 07/25/17 01:33 Dose: Not Given Levothyroxine Sodium (Synthroid) 100 mcg PO DAILY [facility] Last Admin: 07/24/17 11:16 Dose: 100 mcg Morphine Sulfate (Morphine) 3 mg IVP Q4H PRN PRN Reason: Pain, severe (8-10) Last Admin: 07/24/17 21:01 Dose: 3 mg Ondansetron HCl (Zofran Inj) 4 mg IVP Q4H PRN PRN Reason: Nausea/Vomiting Last Admin: 07/23/17 20:02 Dose: 4 mg Pantoprazole Sodium (Protonix Ec Tab) 40 mg PO DAILY [facility] Last Admin: 07/24/17 11:16 Dose: 40 mg Polyethylene Glycol (Miralax) 17 gm PO BID [facility] Last Admin: 07/24/17 17:37 Dose: 17 gm Potassium Phos/Sodium Phos (Neutra-Phos) 1 pkt PO BID [facility] Stop: 07/26/17 18:01 Last Admin: 07/24/17 17:37 Dose: 1 pkt - Labs Labs: 07/24/17 06:06 07/24/17 06:06 PT 29.5 SECONDS (9.4-12.5) H 07/24/17 06:06 INR 2.52 (0.93-1.08) H 07/24/17 06:06 APTT 32.2 Seconds (25.1-36.5) 07/23/17 06:20 - Constitutional Appears: Non-toxic, No Acute Distress - Head Exam Head Exam: ATRAUMATIC, NORMAL INSPECTION, NORMOCEPHALIC - Eye Exam Eye Exam: EOMI, Normal appearance - ENT Exam ENT Exam: Mucous Membranes Moist, Normal Exam - Neck Exam Neck Exam: Full ROM, Normal Inspection - Respiratory Exam Respiratory Exam: Decreased Breath Sounds (right lung bases), NORMAL BREATHING PATTERN. absent: Clear to Ausculation Bilateral, Rales, Rhonchi, Wheezes, Respiratory Distress, Stridor Additional comments: Right chest wall with port in place- no erythema or drainage - Cardiovascular Exam Cardiovascular Exam: REGULAR RHYTHM, +S1, +S2 - GI/Abdominal Exam GI & Abdominal Exam: Distended (mildly), Soft, Tenderness (lower quadrants, mild ). 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 s/p PTC with IR complicated by perihepatic fluid collection s/p drainage later with placement of an internal/external biliary drainage catheter & recurrent ascites consulted for right hydropneumothorax s/p paracentesis and exchange of biliary catheter with IR, stable overnight- no respiratory distress Plan: O2 saturation over 97-98% overnight No respiratory distress at this time Continue to monitor breathing status Will place a chest tube if indicated Consent in chart Change biliary dressing as needed Recommend IR for pigtail chest tube if does not resolve Further recs pending attending evaluation MIHAELA attending Rachael, PGY-1
[2017-07-25] MEDS: Albumin Human 25% (12.5 gm/50 ml) IV SCH ×3 (06:32→22:07)
[2017-07-25] MEDS: Cefepime 1gm in NS 100ml 1 GM/100 ML BAG IVPB SCH ×3 (06:34→21:31)
[2017-07-25 06:46] LABS: BASO # 0.01 K/mm3 (0.0-2.0); BASO % 0.1 % (0.0-3.0); EOS % 0.1 % (1.5-5.0); GRAN # 11.82 (1.4-6.5); GRAN % 87.9 % (50.0-68.0); HEMOGLOBIN 10.3 g/dL (14.0-18.0); LYMPH # 0.9 (1.2-3.4); LYMPH % 6.4 % (22.0-35.0); MEAN CELL VOLUME 90.4 fl (80.0-105.0); MEAN CORPUSCULAR HGB CONC 33.2 g/dl (31.0-37.0); MONO # 0.7 (0.1-0.6); MONO % 5.5 % (1.0-6.0); RBC 3.43 10^6/uL (3.5-6.1); RED CELL DISTRIBUTION WIDTH 18.1 % (11.5-14.5); WHITE BLOOD COUNT 13.5 10^3/ul (4.5-11.0)
[2017-07-25 06:52] LABS: ALB/GLOB RATIO 0.9 (1.1-1.8); ALBUMIN 2.9 g/dL (3.0-4.8); ALT/SGPT 71 U/L (7-56); AST/SGOT 54 U/L (17-59); BLOOD UREA NITROGEN 19 mg/dL (7-21); CALCIUM 7.8 mg/dL (8.4-10.5); GFR AFRICAN-AMERICAN > 60; GFR NON-AFRICAN AMERICAN > 60
[2017-07-25 06:56] LABS: INR 1.88 (0.93-1.08); PROTHROMBIN TIME 21.9 SECONDS (9.4-12.5)
--- NOTE | 2017-07-25 10:50 | RAD ---
PROCEDURE: CHEST RADIOGRAPH, 1 VIEW HISTORY: Evaluation of pneumothorax COMPARISON: Correlation made with concurrent CT scan chest. Comparison also made with prior chest radiograph dated 07/23/2017. FINDINGS: LUNGS: Re- demonstrated is a large right-sided effusion right basilar atelectasis and small to medium size right-sided pneumothorax. . Small left-sided effusion. PLEURA: Re- demonstrated is a large right-sided effusion right basilar atelectasis and small to medium size right-sided pneumothorax. . Small left-sided effusion. CARDIOVASCULAR: Heart appears borderline enlarged. OSSEOUS STRUCTURES: No significant abnormalities. VISUALIZED UPPER ABDOMEN: In situ PTC catheter again noted OTHER FINDINGS: None. IMPRESSION: Re- demonstrated is a large right-sided effusion right basilar atelectasis and small to medium size right-sided pneumothorax. . Small left-sided effusion.
[2017-07-25] MEDS: Morphine 4 mg/ml ISec IVP PRN ×2 (11:17→20:19)
[2017-07-25] MEDS: POLYETHYLENE GLYCOL 3350 17 GM/Dose PACKET PO SCH ×2 (11:17→18:06)
[2017-07-25] MEDS: Potassium & Sodium Phosphate PO SCH ×2 (11:17→18:07)
[2017-07-25] MEDS: Levothyroxine 100 MCG TAB PO SCH (11:18)
[2017-07-25] MEDS: Pantoprazole 40 mg EC Tab PO SCH (11:18)
--- NOTE | 2017-07-25 12:18 | CP.PCM.PN ---
<Salud Rowe - Last Filed: 07/25/17 12:14> Subjective - Date & Time of Evaluation Date of Evaluation: 07/25/17 Time of Evaluation: 12:14 - Subjective Subjective: Salud Rowe, PGY1, Medicine Progress Note for Dr Morales: Patient seen and examined at bedside. Yesterday, pt's liver CT showed right sided hydropneumothorax. No acute events overnight. Pt c/o leaking from biliary stent site, dressing changed as per nursing. Denies fever, chills, nausea, vomiting, overt bleeding, abdominal pain. Objective - Vital Signs/Intake and Output Vital Signs (last 24 hours): Temp Pulse Resp BP Pulse Ox 99.6 F 91 H 24 100/68 98 07/25/17 07:46 07/25/17 07:46 07/25/17 07:46 07/25/17 11:14 07/25/17 07:46 Intake and Output: 07/25/17 07/25/17 06:59 18:59 Intake Total 660 Output Total 300 Balance 360 - Medications Medications: Current Medications Al Hydrox/Mg Hydrox/Simethicone (Maalox Plus 30 Ml) 30 ml PO Q4 PRN PRN Reason: INDIGESTION Albumin Human (Albumin Human 25% (12.5 Gm/50 Ml)) 12.5 gm IV Q8 [facility] Stop: 07/25/17 22:00 Last Admin: 07/25/17 06:32 Dose: 12.5 gm Docusate Sodium (Colace) 100 mg PO TID [facility] Last Admin: 07/25/17 11:14 Dose: 100 mg Cefepime HCl (Maxipime 1gm) 1 gm in 100 mls @ 100 mls/hr IVPB Q8 [facility] PRN Reason: Protocol Last Admin: 07/25/17 06:34 Dose: 100 mls/hr Iron Sucrose 100 mg/ Sodium (Chloride) 105 mls @ 210 mls/hr IVPB DAILY [facility] Stop: 07/26/17 11:00 Last Admin: 07/25/17 11:18 Dose: 210 mls/hr Insulin Human Lispro (Humalog Low) 0 units SC ACHS [facility] PRN Reason: Protocol Last Admin: 07/25/17 09:18 Dose: Not Given Levothyroxine Sodium (Synthroid) 100 mcg PO DAILY [facility] Last Admin: 07/25/17 11:18 Dose: 100 mcg Morphine Sulfate (Morphine) 3 mg IVP Q4H PRN PRN Reason: Pain, severe (8-10) Last Admin: 07/25/17 11:17 Dose: 3 mg Ondansetron HCl (Zofran Inj) 4 mg IVP Q4H PRN PRN Reason: Nausea/Vomiting Last Admin: 07/23/17 20:02 Dose: 4 mg Pantoprazole Sodium (Protonix Ec Tab) 40 mg PO DAILY [facility] Last Admin: 07/25/17 11:18 Dose: 40 mg Polyethylene Glycol (Miralax) 17 gm PO BID [facility] Last Admin: 07/25/17 11:17 Dose: 17 gm Potassium Phos/Sodium Phos (Neutra-Phos) 1 pkt PO BID [facility] Stop: 07/26/17 18:01 Last Admin: 07/25/17 11:17 Dose: 1 pkt - Labs Labs: 07/25/17 06:28 07/25/17 06:28 PT 21.9 SECONDS (9.4-12.5) H 07/25/17 06:28 INR 1.88 (0.93-1.08) H 07/25/17 06:28 APTT 32.2 Seconds (25.1-36.5) 07/23/17 06:20 - Additional Findings Additional findings: - Constitutional Appears: No Acute Distress, Chronically Ill - Head Exam Head Exam: ATRAUMATIC, NORMOCEPHALIC - Eye Exam Eye Exam: EOMI, PERRL. absent: Conjunctival injection, Scleral icterus Pupil Exam: NORMAL ACCOMODATION, PERRL. absent: Fixed, Irregular, Miosis, Unequal - ENT Exam ENT Exam: Mucous Membranes Moist - Neck Exam Neck exam: Positive for: Full Rom - Respiratory Exam Respiratory Exam: Decreased Breath Sounds (at bilateral bases, R>L). absent: Chest Wall Tenderness, Wheezes, Respiratory Distress, Stridor Additional comments: - Cardiovascular Exam Cardiovascular Exam: +S1, +S2. absent: Systolic Murmur - GI/Abdominal Exam GI & Abdominal Exam: soft, Normal Bowel Sounds. + biliary tube draining bilious fluid. absent: Firm, Guarding, Rebound, Rigid. - Extremities Exam Extremities exam: Positive for: pedal edema (2-3+ bilaterally), pedal pulses present. Negative for: calf tenderness - Back Exam Back exam: NORMAL INSPECTION. absent: CVA tenderness (L), CVA tenderness (R) - Neurological Exam Neurological exam: Alert, Oriented x3 - Psychiatric Exam Psychiatric exam: Normal Affect, Normal Mood - Skin Skin Exam: Dry, Normal Color, Warm Assessment and Plan - Assessment and Plan (Free Text) Assessment: 72 year old [place] male with PMH metastatic cholangiocarcinoma with liver mets , status-post drainage of a subcapsular hematoma, status post conversion to a 14 -gauge internal-external drain into the duodenum on [place] therapy with gemcitabine, hypertension, CAD, presents for fever, worsening abdominal distention, constipation, generalized weakness, found to have massive ascites and bilateral pleural effusions, s/p paracentesis 3L and biliary stent exchange. Pt also found to have right sided hydropneumothorax: Right sided hydropneumothorax: - Surgery consulted. Recommends IR. No emergent chest tube indicated at this time. - Will discuss with IR regarding chest tube placement. - saturating well - monitor Massive ascite s/p paracentesis: - received albumin - CT abdomen/pelvis shows massive ascites. probable omental metastasis. Hepatic neoplasm, multifocal. ? subscapular collection inferior right hepatic lobe. PTC catheter. Extensive intrahepatic biliary ductal dilatation. B/l pleural effusion , R>L, compressive atelectasis R>L. - IR consulted. Appreciate recs. S/p paracentesis and biliary stent change tomorrow. - Heme-Onc and GI consulted. F/u recs. - Colace tid, miralax bid. s/p Mag citrate - Cefepime Bilateral pleural effusion: - saturating well - monitor Hypokalemia: - resolved - hold home aldactone - repleted Hyponatremia: - resolved - will monitor History of bilateral DVTs: - home warfarin - monitor INR History of anemia: 2/2 anemia of chronic disease - Hgb 10.3 (baseline 9.8) - Monitor - daily cbc History of CAD: - ASA 81 mg daily Hx of DM: - ISS low Hx of hypothyroidism: - Levothyroxine 100 mcg daily PPX: protonix, Lovenox sq Case seen and examined with Dr Morales. Salud Rowe, PGY1 <Gómez Morales - Last Filed: 07/25/17 15:17> Objective - Vital Signs/Intake and Output Vital Signs (last 24 hours): Temp Pulse Resp BP Pulse Ox 99.6 F 91 H 24 100/68 98 07/25/17 07:46 07/25/17 07:46 07/25/17 07:46 07/25/17 11:14 07/25/17 07:46 Intake and Output: 07/25/17 07/25/17 06:59 18:59 Intake Total 660 840 Output Total 300 250 Balance 360 590 - Medications Medications: Current Medications Al Hydrox/Mg Hydrox/Simethicone (Maalox Plus 30 Ml) 30 ml PO Q4 PRN PRN Reason: INDIGESTION Albumin Human (Albumin Human 25% (12.5 Gm/50 Ml)) 12.5 gm IV Q8 [facility] Stop: 07/25/17 22:00 Last Admin: 07/25/17 13:23 Dose: 12.5 gm Docusate Sodium (Colace) 100 mg PO TID [facility] Last Admin: 07/25/17 13:22 Dose: 100 mg Cefepime HCl (Maxipime 1gm) 1 gm in 100 mls @ 100 mls/hr IVPB Q8 [facility] PRN Reason: Protocol Last Admin: 07/25/17 13:22 Dose: 100 mls/hr Iron Sucrose 100 mg/ Sodium (Chloride) 105 mls @ 210 mls/hr IVPB DAILY [facility] Stop: 07/26/17 11:00 Last Admin: 07/25/17 11:18 Dose: 210 mls/hr Insulin Human Lispro (Humalog Low) 0 units SC ACHS [facility] PRN Reason: Protocol Last Admin: 07/25/17 12:37 Dose: Not Given Levothyroxine Sodium (Synthroid) 100 mcg PO DAILY [facility] Last Admin: 07/25/17 11:18 Dose: 100 mcg Morphine Sulfate (Morphine) 3 mg IVP Q4H PRN PRN Reason: Pain, severe (8-10) Last Admin: 07/25/17 11:17 Dose: 3 mg Ondansetron HCl (Zofran Inj) 4 mg IVP Q4H PRN PRN Reason: Nausea/Vomiting Last Admin: 07/23/17 20:02 Dose: 4 mg Pantoprazole Sodium (Protonix Ec Tab) 40 mg PO DAILY [facility] Last Admin: 07/25/17 11:18 Dose: 40 mg Polyethylene Glycol (Miralax) 17 gm PO BID [facility] Last Admin: 07/25/17 11:17 Dose: 17 gm Potassium Phos/Sodium Phos (Neutra-Phos) 1 pkt PO BID [facility] Stop: 07/26/17 18:01 Last Admin: 07/25/17 11:17 Dose: 1 pkt Warfarin Sodium (Coumadin) 4 mg PO 1800 [facility] PRN Reason: Protocol - Labs Labs: 07/25/17 06:28 07/25/17 06:28 PT 21.9 SECONDS (9.4-12.5) H 07/25/17 06:28 INR 1.88 (0.93-1.08) H 07/25/17 06:28 APTT 32.2 Seconds (25.1-36.5) 07/23/17 06:20 Attending/Attestation - Attestation I have personally seen and examined this patient.: Yes I have fully participated in the care of the patient.: Yes I have reviewed all pertinent clinical information, including history, physical exam and plan: Yes Notes (Text): 07/25/17 15:17 Attending note: Patient seen and examined with resident. Patient is a 72 year old [place] male with PMH of metastatic cholangiocarcinoma with liver mets, status-post drainage of a subcapsular hematoma, status post biliary drain placement, s/p chemotherapy with cisplatin and gemcitabine, bilateral lower extremity DVT is admitted with fever, worsening abdominal distention, constipation, generalized weakness, found to have massive ascites and bilateral pleural effusions. Generalized deconditioning secondary to advanced cancer. CT chest abdomen and pelvis showed massive ascites, probable omental metastasis with bilateral pleural effusion and atelectasis. CT reviewed with Dr. Duarte Guerra in detail. s/p biliary drain change and paracentesis. right pneumohemothorax. Patient is clinically stable. No hypoxia. Surgery evaluation appreciated. no intervention needed at this time. Bilateral lower extremity DVT; on Coumadin. INR is 1.88. continue Coumadin. Fever; resolved. Blood culture is negative. Case discussed with ID in detail. Started on IV cefepime. Prognosis is poor. case discussed with patient's son in detail Regarding patient's general medical condition/recurrent ascites and pneumohydrothorax. patient is full code for now. Patient's family will discuss with oncology for further treatment options/ prognosis. Upon discharge patient [place] [facility] [place]
--- NOTE | 2017-07-25 12:53 | CT ---
PROCEDURE: CT chest dated 07/24/2017 HISTORY: Right-sided hydro pneumothorax COMPARISON: Comparison made with CT scan abdomen pelvis 07/23/2017 which imaged both lung bases. TECHNIQUE: The the Contiguous helical/transaxial images were obtained through the chest without intravenous contrast enhancement. Sagittal and coronal reconstructions were performed. Radiation dose (DLP): 526.91 mGy-cm. This CT exam was performed using one or more of the following dose reduction techniques: Automated exposure control, adjustment of the mA and/or kV according to patient size, and/or use of iterative reconstruction technique. FINDINGS: LUNGS: There is a moderate-sized pneumothorax associated with a large right-sided effusion (hydropneumothorax). Atelectasis right lower lobe as well as to a lesser degree middle and upper lobes. The changes result in mild right to left-sided mediastinal shift. Small left-sided effusion. . Mild minor passive atelectasis left lung base. . Small nodular density right anterior upper lung field MEDIASTINUM: Mediastinum is shifted slightly to the left side by the large left-sided effusion and pneumothorax (hydropneumothorax). The heart size is upper limits - borderline enlarged and there is a small pericardial effusion. No evidence of aortic aneurysm. . . There appears to be a few small nonspecific mediastinal lymph nodes. Evaluation for hilar adenopathy is limited the due to the lack of circulating intravenous contrast material. Central airways are midline and patent. No large central endoluminal lesions. In situ right IJ MediPort unchanged PLEURA: As above BONES: Minor multilevel degenerative spondylosis of the thoracic spine. No acute compression fractures nor retropulsed fragments UPPER ABDOMEN: Re- demonstrated is an in situ PTC. . There is mild pneumobilia likely due to the presence of the PTC. Scattered hepatic metastases less well seen on this study as compared to prior exam due to the lack of circulating intravenous contrast. Abdominal ascites present. The stomach is markedly distended with liquid and air. . Please refer to CT scan of the abdomen pelvis obtained earlier same day for additional details of the abdomen OTHER FINDINGS: None. IMPRESSION: Moderate moderate-sized pneumothorax associated with a large right-sided effusion (hydropneumothorax). Atelectasis right lower lobe as well as to a lesser degree middle and upper lobes. . These changes result in mild right to left-sided mediastinal shift. Small left-sided effusion. . Mild minor passive atelectasis left lung base. . Small nodular density left anterior upper lobe. Small pericardial effusion See above discussion for additional details. Please refer to CT scan abdomen pelvis obtained earlier same day regarding findings in the upper abdomen
--- NOTE | 2017-07-25 18:04 | CP.PCM.PN ---
Subjective - Date & Time of Evaluation Date of Evaluation: 07/25/17 Time of Evaluation: 17:00 - Subjective Subjective: Infectious Disease Follow Up: July 25, 2017 72 [place] male with a PMHx of cholangiocarcinoma with liver mets, hypertension, diabetes, CAD s/p stents, obstructive jaundice, and intrahepatic ducal dilatation s/p biliary drain placement, presents to the emergency department for several days of constipation, worsening abdominal distension and tenderness specifically on the left quadrants, near syncopal episode, and occasional SOB. Patient was recently admitted to [facility] [place] and discharged 8 days ago. Poor PO intake is becoming the patient's normal as per the son. CT abdomen done on current hospitalization is now showing massive ascites, possible omental metastasis, and multifocal hepatic neoplasm. Patient was seen and examined at bedside. History of lower extremity swelling and tenderness. Patient denies chills, chest pains, nausea, vomiting, diarrhea, dysuria. Restarted on Zosyn for antibiotic coverage. Fever of 102.7 F on admission. Cultures negative to date. On Cefepime IV. Temperature as low as 97.4 F yesterday. Afebrile so far today. Had prolonged discussion with the patient's son in room. Objective - Vital Signs/Intake and Output Vital Signs (last 24 hours): Temp Pulse Resp BP Pulse Ox 99.6 F 91 H 24 100/68 98 07/25/17 07:46 07/25/17 07:46 07/25/17 07:46 07/25/17 11:14 07/25/17 07:46 Intake and Output: 07/25/17 07/25/17 06:59 18:59 Intake Total 660 840 Output Total 300 250 Balance 360 590 - Medications Medications: Current Medications Al Hydrox/Mg Hydrox/Simethicone (Maalox Plus 30 Ml) 30 ml PO Q4 PRN PRN Reason: INDIGESTION Albumin Human (Albumin Human 25% (12.5 Gm/50 Ml)) 12.5 gm IV Q8 [facility] Stop: 07/25/17 22:00 Last Admin: 07/25/17 13:23 Dose: 12.5 gm Docusate Sodium (Colace) 100 mg PO TID [facility] Last Admin: 07/25/17 13:22 Dose: 100 mg Cefepime HCl (Maxipime 1gm) 1 gm in 100 mls @ 100 mls/hr IVPB Q8 [facility] PRN Reason: Protocol Last Admin: 07/25/17 13:22 Dose: 100 mls/hr Iron Sucrose 100 mg/ Sodium (Chloride) 105 mls @ 210 mls/hr IVPB DAILY [facility] Stop: 07/26/17 11:00 Last Admin: 07/25/17 11:18 Dose: 210 mls/hr Insulin Human Lispro (Humalog Low) 0 units SC ACHS [facility] PRN Reason: Protocol Last Admin: 07/25/17 12:37 Dose: Not Given Levothyroxine Sodium (Synthroid) 100 mcg PO DAILY [facility] Last Admin: 07/25/17 11:18 Dose: 100 mcg Morphine Sulfate (Morphine) 3 mg IVP Q4H PRN PRN Reason: Pain, severe (8-10) Last Admin: 07/25/17 11:17 Dose: 3 mg Ondansetron HCl (Zofran Inj) 4 mg IVP Q4H PRN PRN Reason: Nausea/Vomiting Last Admin: 07/23/17 20:02 Dose: 4 mg Pantoprazole Sodium (Protonix Ec Tab) 40 mg PO DAILY [facility] Last Admin: 07/25/17 11:18 Dose: 40 mg Polyethylene Glycol (Miralax) 17 gm PO BID [facility] Last Admin: 07/25/17 11:17 Dose: 17 gm Potassium Phos/Sodium Phos (Neutra-Phos) 1 pkt PO BID [facility] Stop: 07/26/17 18:01 Last Admin: 07/25/17 11:17 Dose: 1 pkt Warfarin Sodium (Coumadin) 4 mg PO 1800 [facility] PRN Reason: Protocol - Labs Labs: 07/25/17 06:28 07/25/17 06:28 PT 21.9 SECONDS (9.4-12.5) H 07/25/17 06:28 INR 1.88 (0.93-1.08) H 07/25/17 06:28 APTT 32.2 Seconds (25.1-36.5) 07/23/17 06:20 - Constitutional Appears: Non-toxic, No Acute Distress, Chronically Ill - Head Exam Head Exam: ATRAUMATIC, NORMOCEPHALIC - Eye Exam Eye Exam: EOMI, PERRL Pupil Exam: NORMAL ACCOMODATION, PERRL - ENT Exam ENT Exam: Mucous Membranes Moist, Normal External Ear Exam, TM's Normal Bilaterally - Neck Exam Neck Exam: Full ROM, Normal Inspection - Respiratory Exam Respiratory Exam: Decreased Breath Sounds. absent: Rales, Rhonchi, Wheezes Additional comments: bibasilar crackles. - Cardiovascular Exam Cardiovascular Exam: REGULAR RHYTHM, RRR, +S1, +S2 - GI/Abdominal Exam GI & Abdominal Exam: Distended, Soft. absent: Tenderness Additional comments: Ascites. - Extremities Exam Extremities Exam: Full ROM Additional comments: general weakness and moderate lower body edema. - Neurological Exam Neurological Exam: Alert, Awake, CN II-XII Intact, Oriented x3 - Psychiatric Exam Psychiatric exam: Normal Affect, Normal Mood - Skin Additional comments: Jaundiced. Assessment and Plan - Assessment and Plan (Free Text) Assessment: 72 yo [place] male with significant abdominal distension, SOB, difficulty ambulating, and near syncopal episodes. CT of abdomen showing possible omental metastasis. Rapid accumulation of ascitic fluid given paracentesis and thoracentesis. Given CT scan of the abdomen, it appears the patient's cholangiocarcinoma is worsening with increased metastasis. Fevers could be secondary to malignancy. There are small bilateral pleural effusions bilaterally. Zosyn given for a potential pneumonia. The patient does not have leukocytosis. Could check procalcitonin and if significantly elevated, case for pneumonia can be made. Continue on Cefepime IV. Very poor overall prognosis... especially with possible omental metastasis. Case discussed with Dr. Morales. Case discussed in detail with patient's son. Thank you for allowing me to participate in the care of the patient, we will follow with you.
[2017-07-26 05:40] LABS: INR 1.27 (0.93-1.08); PROTHROMBIN TIME 14.6 SECONDS (9.4-12.5)
[2017-07-26 05:46] LABS: ALT/SGPT 57 U/L (7-56); AST/SGOT 34 U/L (17-59); BLOOD UREA NITROGEN 23 mg/dL (7-21); CALCIUM 8.1 mg/dL (8.4-10.5); GFR AFRICAN-AMERICAN > 60; GFR NON-AFRICAN AMERICAN > 60
[2017-07-26 06:07] LABS: BASO # 0.01 K/mm3 (0.0-2.0); BASO % 0.1 % (0.0-3.0); EOS # 0.1 (0.0-0.7); EOS % 0.9 % (1.5-5.0); GRAN # 8.07 (1.4-6.5); GRAN % 83.5 % (50.0-68.0); HEMOGLOBIN 9.3 g/dL (14.0-18.0); LYMPH # 0.7 (1.2-3.4); LYMPH % 7.5 % (22.0-35.0); MEAN CORPUSCULAR HEMOGLOBIN 30.1 pg (25.0-35.0); MEAN CORPUSCULAR HGB CONC 33.5 g/dl (31.0-37.0); MEAN PLATELET VOLUME 9.9 fl (7.0-11.0); MONO # 0.8 (0.1-0.6); RBC 3.09 10^6/uL (3.5-6.1); RED CELL DISTRIBUTION WIDTH 17.9 % (11.5-14.5); WHITE BLOOD COUNT 9.7 10^3/ul (4.5-11.0)
[2017-07-26] MEDS: Morphine 4 mg/ml ISec IVP PRN ×2 (06:17→21:31)
[2017-07-26] MEDS ORDERED: Enoxaparin 80 mg Syringe SC SCH (08:45)
[2017-07-26] MEDS: Insulin Lispro (humaLOG) LOW Coverage SC SCH ×4 (08:53→21:48)
--- NOTE | 2017-07-26 09:13 | CP.PCM.PN ---
Subjective - Date & Time of Evaluation Date of Evaluation: 07/26/17 Time of Evaluation: 07:30 - Subjective Subjective: General Surgery Pt Seen and examined. Pt c/o of biliary drain dressing frequently saturated. No new complaints. Denies Chest pain, SOB, problems breathing. Monitored overnight for respiratory distress/poor O2 saturation, pt consistently saturating 97-100% overnight, no distress. Objective - Vital Signs/Intake and Output Vital Signs (last 24 hours): Temp Pulse Resp BP Pulse Ox 97.7 F 100 H 22 113/75 99 07/26/17 08:01 07/26/17 08:01 07/26/17 08:01 07/26/17 08:01 07/26/17 08:01 Intake and Output: 07/26/17 07/26/17 06:59 18:59 Output Total 150 Balance -150 - Medications Medications: Current Medications Al Hydrox/Mg Hydrox/Simethicone (Maalox Plus 30 Ml) 30 ml PO Q4 PRN PRN Reason: INDIGESTION Docusate Sodium (Colace) 100 mg PO TID [facility] Last Admin: 07/25/17 18:04 Dose: 100 mg Enoxaparin Sodium (Lovenox) 70 mg SC Q12H [facility] PRN Reason: Protocol Cefepime HCl (Maxipime 1gm) 1 gm in 100 mls @ 100 mls/hr IVPB Q8 [facility] PRN Reason: Protocol Last Admin: 07/25/17 21:31 Dose: 100 mls/hr Iron Sucrose 100 mg/ Sodium (Chloride) 105 mls @ 210 mls/hr IVPB DAILY [facility] Stop: 07/26/17 11:00 Last Admin: 07/25/17 11:18 Dose: 210 mls/hr Insulin Human Lispro (Humalog Low) 0 units SC ACHS [facility] PRN Reason: Protocol Last Admin: 07/26/17 08:53 Dose: 1 unit Levothyroxine Sodium (Synthroid) 100 mcg PO DAILY [facility] Last Admin: 07/25/17 11:18 Dose: 100 mcg Morphine Sulfate (Morphine) 3 mg IVP Q4H PRN PRN Reason: Pain, severe (8-10) Last Admin: 07/26/17 06:17 Dose: 3 mg Ondansetron HCl (Zofran Inj) 4 mg IVP Q4H PRN PRN Reason: Nausea/Vomiting Last Admin: 07/23/17 20:02 Dose: 4 mg Pantoprazole Sodium (Protonix Ec Tab) 40 mg PO DAILY [facility] Last Admin: 07/25/17 11:18 Dose: 40 mg Polyethylene Glycol (Miralax) 17 gm PO BID [facility] Last Admin: 07/25/17 18:06 Dose: 17 gm Potassium Phos/Sodium Phos (Neutra-Phos) 1 pkt PO BID [facility] Stop: 07/26/17 18:01 Last Admin: 07/25/17 18:07 Dose: 1 pkt - Labs Labs: 07/26/17 05:10 07/26/17 05:10 PT 14.6 SECONDS (9.4-12.5) H 07/26/17 05:10 INR 1.27 (0.93-1.08) H 07/26/17 05:10 APTT 32.2 Seconds (25.1-36.5) 07/23/17 06:20 - Constitutional Appears: Non-toxic, No Acute Distress - Head Exam Head Exam: ATRAUMATIC, NORMOCEPHALIC - Eye Exam Eye Exam: EOMI - ENT Exam ENT Exam: Mucous Membranes Moist - Respiratory Exam Respiratory Exam: NORMAL BREATHING PATTERN. absent: Respiratory Distress - Cardiovascular Exam Cardiovascular Exam: absent: Bradycardia - GI/Abdominal Exam GI & Abdominal Exam: Soft. absent: Distended, Tenderness Additional comments: Drain in place with bile stained dressing - Neurological Exam Neurological Exam: Alert, Awake - Skin Skin Exam: Dry, Warm Assessment and Plan - Assessment and Plan (Free Text) Assessment: 72M w/PMH sig for 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 s/p PTC with IR complicated by perihepatic fluid collection s/p drainage later with placement of an internal/external biliary drainage catheter & recurrent ascites consulted for right hydropneumothorax s/p paracentesis and exchange of biliary catheter with IR, stable overnight- no respiratory distress Plan: No respiratory distress at this time Continue to monitor breathing status Will place a chest tube if indicated Consent in chart Change biliary dressing as needed Recommend IR for pigtail chest tube if does not resolve Will D/W Dr. Deangelo Vanessa PGY4
--- NOTE | 2017-07-26 09:31 | RAD ---
HISTORY: Hydropneumothorax COMPARISON: July 24, 2017 single-view chest. July 24, 2017 CT thorax FINDINGS: LUNGS: Stable right lower lobe right middle lobe compressive atelectasis. PLEURA: Very small apical pneumothorax. Gaurav remarked Stable large pleural effusion. CARDIOVASCULAR: No radiographic findings to suggest acute or significant cardiovascular disease.Venous access catheter in stable, satisfactory position. OSSEOUS STRUCTURES: No significant abnormalities. VISUALIZED UPPER ABDOMEN: Normal. OTHER FINDINGS: None. IMPRESSION: No significant interval change compared to the prior examination(s).
--- NOTE | 2017-07-26 10:34 | CP.PCM.PN ---
<Salud Rowe - Last Filed: 07/26/17 10:19> Subjective - Date & Time of Evaluation Date of Evaluation: 07/26/17 Time of Evaluation: 10:19 - Subjective Subjective: Salud Rowe, PGY1, Medicine Progress Note for Dr Morales: Patient seen and examined at bedside. No acute events overnight. Denies sob, cp , pleurisy, fever, chills, nausea, vomiting, excessive, overt bleeding, abdominal pain. Pt complains of constipation despite being on colace and miralax in hospital, and requests dulcolax. Objective - Vital Signs/Intake and Output Vital Signs (last 24 hours): Temp Pulse Resp BP Pulse Ox 97.7 F 100 H 22 113/75 99 07/26/17 08:01 07/26/17 08:01 07/26/17 08:01 07/26/17 08:01 07/26/17 08:01 Intake and Output: 07/26/17 07/26/17 06:59 18:59 Output Total 150 Balance -150 - Medications Medications: Current Medications Al Hydrox/Mg Hydrox/Simethicone (Maalox Plus 30 Ml) 30 ml PO Q4 PRN PRN Reason: INDIGESTION Docusate Sodium (Colace) 100 mg PO TID [facility] Last Admin: 07/25/17 18:04 Dose: 100 mg Enoxaparin Sodium (Lovenox) 70 mg SC Q12H [facility] PRN Reason: Protocol Cefepime HCl (Maxipime 1gm) 1 gm in 100 mls @ 100 mls/hr IVPB Q8 [facility] PRN Reason: Protocol Last Admin: 07/25/17 21:31 Dose: 100 mls/hr Iron Sucrose 100 mg/ Sodium (Chloride) 105 mls @ 210 mls/hr IVPB DAILY [facility] Stop: 07/26/17 11:00 Last Admin: 07/25/17 11:18 Dose: 210 mls/hr Insulin Human Lispro (Humalog Low) 0 units SC ACHS [facility] PRN Reason: Protocol Last Admin: 07/26/17 08:53 Dose: 1 unit Levothyroxine Sodium (Synthroid) 100 mcg PO DAILY [facility] Last Admin: 07/25/17 11:18 Dose: 100 mcg Morphine Sulfate (Morphine) 3 mg IVP Q4H PRN PRN Reason: Pain, severe (8-10) Last Admin: 07/26/17 06:17 Dose: 3 mg Ondansetron HCl (Zofran Inj) 4 mg IVP Q4H PRN PRN Reason: Nausea/Vomiting Last Admin: 07/23/17 20:02 Dose: 4 mg Pantoprazole Sodium (Protonix Ec Tab) 40 mg PO DAILY [facility] Last Admin: 07/25/17 11:18 Dose: 40 mg Polyethylene Glycol (Miralax) 17 gm PO BID [facility] Last Admin: 07/25/17 18:06 Dose: 17 gm Potassium Phos/Sodium Phos (Neutra-Phos) 1 pkt PO BID [facility] Stop: 07/26/17 18:01 Last Admin: 07/25/17 18:07 Dose: 1 pkt - Labs Labs: 07/26/17 05:10 07/26/17 05:10 PT 14.6 SECONDS (9.4-12.5) H 07/26/17 05:10 INR 1.27 (0.93-1.08) H 07/26/17 05:10 APTT 32.2 Seconds (25.1-36.5) 07/23/17 06:20 - Additional Findings Additional findings: - Constitutional Appears: No Acute Distress, Chronically Ill - Head Exam Head Exam: ATRAUMATIC, NORMOCEPHALIC - Eye Exam Eye Exam: EOMI, PERRL. absent: Conjunctival injection, Scleral icterus Pupil Exam: NORMAL ACCOMODATION, PERRL. absent: Fixed, Irregular, Miosis, Unequal - ENT Exam ENT Exam: Mucous Membranes Moist - Neck Exam Neck exam: Positive for: Full Rom - Respiratory Exam Respiratory Exam: Decreased Breath Sounds (at bilateral bases, R>L). Dullness to percussion on right lower lung base. absent: Chest Wall Tenderness, Wheezes, Respiratory Distress, Stridor Additional comments: - Cardiovascular Exam Cardiovascular Exam: +S1, +S2. absent: Systolic Murmur - GI/Abdominal Exam GI & Abdominal Exam: soft, Normal Bowel Sounds. + biliary tube draining bilious fluid. absent: Firm, Guarding, Rebound, Rigid. - Extremities Exam Extremities exam: Positive for: pedal edema (2-3+ bilaterally), pedal pulses present. Negative for: calf tenderness - Back Exam Back exam: NORMAL INSPECTION. absent: CVA tenderness (L), CVA tenderness (R) - Neurological Exam Neurological exam: Alert, Oriented x3 - Psychiatric Exam Psychiatric exam: Normal Affect, Normal Mood - Skin Skin Exam: Dry, Normal Color, Warm Assessment and Plan - Assessment and Plan (Free Text) Assessment: 72 year old [place]ian male with PMH metastatic cholangiocarcinoma with liver mets , status-post drainage of a subcapsular hematoma, status post conversion to a 14 -gauge internal-external drain into the duodenum on [place] therapy with gemcitabine, hypertension, CAD, presents for fever, worsening abdominal distention, constipation, generalized weakness, found to have massive ascites and bilateral pleural effusions, s/p paracentesis 3L and biliary stent exchange. Pt also found to have right sided hydropneumothorax, currently stable: Right sided hydropneumothorax: - Surgery consulted. Recommends IR. No emergent chest tube indicated at this time. - Informed IR regarding pneumothroax s/p biliary stent procedure. - saturating well - CXR today unchanged from yesterday - monitor Massive ascite s/p paracentesis: - paracentesis 3L drained. No fluid sent for analysis due recent drainage. - received albumin - CT abdomen/pelvis shows massive ascites. probable omental metastasis. Hepatic neoplasm, multifocal. ? subscapular collection inferior right hepatic lobe. PTC catheter. Extensive intrahepatic biliary ductal dilatation. B/l pleural effusion , R>L, compressive atelectasis R>L. - IR consulted. Appreciate recs. S/p paracentesis and biliary stent change tomorrow. - Heme-Onc and GI consulted. F/u recs. - Colace tid, miralax bid. s/p Mag citrate - Cefepime Bilateral pleural effusion: - saturating well - monitor Hypokalemia: - resolved - repleted Hyponatremia: - resolved - will monitor History of bilateral DVTs: - Lovenox 70 mg sq q12 - monitor INR History of anemia: 2/2 anemia of chronic disease - Hgb stable - Monitor - daily cbc History of CAD: - ASA 81 mg daily Hx of DM: - ISS low Hx of hypothyroidism: - Levothyroxine 100 mcg daily PPX: protonix, Lovenox sq Case seen and examined with Dr Morales. Salud Rowe, PGY1 <Gómez Morales - Last Filed: 06/17/18 12:26> Objective - Vital Signs/Intake and Output Vital Signs (last 24 hours): Temp Pulse Resp BP Pulse Ox 97.7 F 100 H 22 113/75 99 07/26/17 08:01 07/26/17 08:01 07/26/17 08:01 07/26/17 08:01 07/26/17 08:01 Intake and Output: 07/26/17 07/26/17 06:59 18:59 Output Total 150 Balance -150 - Medications Medications: Current Medications Al Hydrox/Mg Hydrox/Simethicone (Maalox Plus 30 Ml) 30 ml PO Q4 PRN PRN Reason: INDIGESTION Bisacodyl (Dulcolax) 10 mg RC DAILY [facility] Last Admin: 07/26/17 11:36 Dose: 10 mg Docusate Sodium (Colace) 100 mg PO TID [facility] Last Admin: 07/26/17 11:34 Dose: 100 mg Cefepime HCl (Maxipime 1gm) 1 gm in 100 mls @ 100 mls/hr IVPB Q8 [facility] PRN Reason: Protocol Last Admin: 07/25/17 21:31 Dose: 100 mls/hr Insulin Human Lispro (Humalog Low) 0 units SC ACHS [facility] PRN Reason: Protocol Last Admin: 07/26/17 12:20 Dose: Not Given Levothyroxine Sodium (Synthroid) 100 mcg PO DAILY [facility] Last Admin: 07/26/17 11:34 Dose: 100 mcg Morphine Sulfate (Morphine) 3 mg IVP Q4H PRN PRN Reason: Pain, severe (8-10) Last Admin: 07/26/17 06:17 Dose: 3 mg Ondansetron HCl (Zofran Inj) 4 mg IVP Q4H PRN PRN Reason: Nausea/Vomiting Last Admin: 07/23/17 20:02 Dose: 4 mg Pantoprazole Sodium (Protonix Ec Tab) 40 mg PO DAILY [facility] Last Admin: 07/26/17 11:34 Dose: 40 mg Polyethylene Glycol (Miralax) 17 gm PO BID [facility] Last Admin: 07/26/17 11:34 Dose: 17 gm Potassium Phos/Sodium Phos (Neutra-Phos) 1 pkt PO BID [facility] Stop: 07/26/17 18:01 Last Admin: 07/26/17 11:34 Dose: 1 pkt - Labs Labs: 07/26/17 05:10 07/26/17 05:10 PT 14.6 SECONDS (9.4-12.5) H 07/26/17 05:10 INR 1.27 (0.93-1.08) H 07/26/17 05:10 APTT 32.2 Seconds (25.1-36.5) 07/23/17 06:20 Attending/Attestation - Attestation I have personally seen and examined this patient.: Yes I have fully participated in the care of the patient.: Yes I have reviewed all pertinent clinical information, including history, physical exam and plan: Yes Notes (Text): 07/26/17 12:24 Attending note: Patient seen and examined with resident. Patient is a 72 year old [place]ian male with PMH of metastatic cholangiocarcinoma with liver mets, status-post drainage of a subcapsular hematoma, status post biliary drain placement, s/p chemotherapy with cisplatin and gemcitabine, bilateral lower extremity DVT is admitted with fever, worsening abdominal distention, constipation, generalized weakness, found to have massive ascites and bilateral pleural effusions. Generalized deconditioning secondary to advanced cancer. CT chest abdomen and pelvis showed massive ascites, probable omental metastasis with bilateral pleural effusion and atelectasis. s/p biliary drain change and paracentesis. right pneumohydroax. Patient is clinically stable. No hypoxia. Surgery evaluation appreciated. no intervention needed at this time. Case discussed with Dr. Duarte Guerra. We will reevaluate in a.m. for the possible need for possible catheter placement. Bilateral lower extremity DVT; on Coumadin. INR is 1.27. Hold Coumadin. Started on Lovenox. Restart Coumadin after possible chest tube/ catheter placement tomorrow. Fever; resolved. Blood culture is negative. Case discussed with ID in detail. on IV cefepime. Prognosis is poor. case discussed with patient's son in detail Regarding patient's general medical condition/recurrent ascites and pneumohydrothorax. patient is full code for now. Patient's family will discuss with oncology for further treatment options/ prognosis. Upon discharge patient [place] be [place] [facility]
[2017-07-26] MEDS: Pantoprazole 40 mg EC Tab PO SCH (11:34)
[2017-07-26] MEDS: Levothyroxine 100 MCG TAB PO SCH (11:34)
[2017-07-26] MEDS: Potassium & Sodium Phosphate PO SCH ×2 (11:34→18:32)
[2017-07-26] MEDS: POLYETHYLENE GLYCOL 3350 17 GM/Dose PACKET PO SCH ×2 (11:34→18:32)
[2017-07-26] MEDS: Cefepime 1gm in NS 100ml 1 GM/100 ML BAG IVPB SCH ×2 (14:41→21:34)
--- NOTE | 2017-07-26 17:10 | CP.PCM.PN ---
Subjective - Date & Time of Evaluation Date of Evaluation: 07/25/17 Time of Evaluation: 20:00 - Subjective Subjective: No acute events over night; chest tube continues to have output ROS 12 ROS negative otherwise Objective - Vital Signs/Intake and Output Vital Signs (last 24 hours): Temp Pulse Resp BP Pulse Ox 97.7 F 100 H 22 113/75 99 07/26/17 08:01 07/26/17 08:01 07/26/17 08:01 07/26/17 08:01 07/26/17 08:01 Intake and Output: 07/26/17 07/26/17 06:59 18:59 Intake Total 600 Output Total 150 0 Balance -150 600 - Medications Medications: Current Medications Al Hydrox/Mg Hydrox/Simethicone (Maalox Plus 30 Ml) 30 ml PO Q4 PRN PRN Reason: INDIGESTION Bisacodyl (Dulcolax) 10 mg RC DAILY [facility] Last Admin: 07/26/17 11:36 Dose: 10 mg Docusate Sodium (Colace) 100 mg PO TID [facility] Last Admin: 07/26/17 14:42 Dose: 100 mg Cefepime HCl (Maxipime 1gm) 1 gm in 100 mls @ 100 mls/hr IVPB Q8 [facility] PRN Reason: Protocol Last Admin: 07/26/17 14:41 Dose: 100 mls/hr Insulin Human Lispro (Humalog Low) 0 units SC ACHS [facility] PRN Reason: Protocol Last Admin: 07/26/17 12:20 Dose: Not Given Levothyroxine Sodium (Synthroid) 100 mcg PO DAILY [facility] Last Admin: 07/26/17 11:34 Dose: 100 mcg Morphine Sulfate (Morphine) 3 mg IVP Q4H PRN PRN Reason: Pain, severe (8-10) Last Admin: 07/26/17 06:17 Dose: 3 mg Ondansetron HCl (Zofran Inj) 4 mg IVP Q4H PRN PRN Reason: Nausea/Vomiting Last Admin: 07/23/17 20:02 Dose: 4 mg Pantoprazole Sodium (Protonix Ec Tab) 40 mg PO DAILY [facility] Last Admin: 07/26/17 11:34 Dose: 40 mg Polyethylene Glycol (Miralax) 17 gm PO BID [facility] Last Admin: 07/26/17 11:34 Dose: 17 gm Potassium Phos/Sodium Phos (Neutra-Phos) 1 pkt PO BID [facility] Stop: 07/26/17 18:01 Last Admin: 07/26/17 11:34 Dose: 1 pkt - Labs Labs: 07/26/17 05:10 07/26/17 05:10 PT 14.6 SECONDS (9.4-12.5) H 07/26/17 05:10 INR 1.27 (0.93-1.08) H 07/26/17 05:10 APTT 32.2 Seconds (25.1-36.5) 07/23/17 06:20 - Constitutional Appears: Non-toxic - Head Exam Head Exam: ATRAUMATIC, NORMAL INSPECTION, NORMOCEPHALIC - Respiratory Exam Respiratory Exam: Clear to Ausculation Bilateral, NORMAL BREATHING PATTERN - Cardiovascular Exam Cardiovascular Exam: REGULAR RHYTHM, +S1, +S2. absent: Murmur - GI/Abdominal Exam GI & Abdominal Exam: Soft, Normal Bowel Sounds. absent: Tenderness Additional comments: Chest drain in place - Extremities Exam Extremities Exam: Full ROM, Normal Capillary Refill, Normal Inspection. absent : Joint Swelling, Pedal Edema Assessment and Plan - Assessment and Plan (Free Text) Assessment: Mr. 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 Chest tube continues to have notable output. Patient's pain is controlled. Plan on having CT a/p reviewed with OS liver surgeon Dr. Guerra. If patient found to be a surgical candidate will discuss merits of surgery with patient and family. If surgery confirms that patient is not a candidate for surgery will disucss roll for addtionall palliative chemotherapy vs a symptomatic based approach and consideration for hopsice. Patient is very emphatic that he wants to see his family in [place] prior to dying. If surgery is not an option will disucss further with patient best plans subsequently with him and family. Discussed with Dr. Kayode Ward MD Oncology Service
--- NOTE | 2017-07-26 18:30 | CP.PCM.PN ---
Subjective - Date & Time of Evaluation Date of Evaluation: 07/26/17 Time of Evaluation: 17:00 - Subjective Subjective: Infectious Disease Follow Up: July 26, 2017 72 togolese speaking [place] male with a PMHx of cholangiocarcinoma with liver mets, hypertension, diabetes, CAD s/p stents, obstructive jaundice, and intrahepatic ducal dilatation s/p biliary drain placement, presents to the emergency department for several days of constipation, worsening abdominal distension and tenderness specifically on the left quadrants, near syncopal episode, and occasional SOB. Patient was recently admitted to [facility] [place] and discharged 8 days ago. Poor PO intake is becoming the patient's normal as per the son. CT abdomen done on current hospitalization is now showing massive ascites, possible omental metastasis, and multifocal hepatic neoplasm. Patient was seen and examined at bedside. History of lower extremity swelling and tenderness. Patient denies chills, chest pains, nausea, vomiting, diarrhea, dysuria. Cultures negative to date. On Cefepime IV. Temperature as low as 97.7 F today. Afebrile so far today. Had prolonged discussion with the patient's son in room yesterday. Chest tube in right chest for pneumothorax. Finding of possible Omental metastasis. Objective - Vital Signs/Intake and Output Vital Signs (last 24 hours): Temp Pulse Resp BP Pulse Ox 97.7 F 100 H 22 113/75 99 07/26/17 08:01 07/26/17 08:01 07/26/17 08:01 07/26/17 08:01 07/26/17 08:01 Intake and Output: 07/26/17 07/26/17 06:59 18:59 Intake Total 600 Output Total 150 0 Balance -150 600 - Medications Medications: Current Medications Al Hydrox/Mg Hydrox/Simethicone (Maalox Plus 30 Ml) 30 ml PO Q4 PRN PRN Reason: INDIGESTION Bisacodyl (Dulcolax) 10 mg RC DAILY [facility] Last Admin: 07/26/17 11:36 Dose: 10 mg Docusate Sodium (Colace) 100 mg PO TID [facility] Last Admin: 07/26/17 14:42 Dose: 100 mg Cefepime HCl (Maxipime 1gm) 1 gm in 100 mls @ 100 mls/hr IVPB Q8 [facility] PRN Reason: Protocol Last Admin: 07/26/17 14:41 Dose: 100 mls/hr Insulin Human Lispro (Humalog Low) 0 units SC ACHS [facility] PRN Reason: Protocol Last Admin: 07/26/17 17:47 Dose: Not Given Levothyroxine Sodium (Synthroid) 100 mcg PO DAILY [facility] Last Admin: 07/26/17 11:34 Dose: 100 mcg Morphine Sulfate (Morphine) 3 mg IVP Q4H PRN PRN Reason: Pain, severe (8-10) Last Admin: 07/26/17 06:17 Dose: 3 mg Ondansetron HCl (Zofran Inj) 4 mg IVP Q4H PRN PRN Reason: Nausea/Vomiting Last Admin: 07/23/17 20:02 Dose: 4 mg Pantoprazole Sodium (Protonix Ec Tab) 40 mg PO DAILY [facility] Last Admin: 07/26/17 11:34 Dose: 40 mg Polyethylene Glycol (Miralax) 17 gm PO BID [facility] Last Admin: 07/26/17 11:34 Dose: 17 gm - Labs Labs: 07/26/17 05:10 07/26/17 05:10 PT 14.6 SECONDS (9.4-12.5) H 07/26/17 05:10 INR 1.27 (0.93-1.08) H 07/26/17 05:10 APTT 32.2 Seconds (25.1-36.5) 07/23/17 06:20 - Constitutional Appears: Non-toxic, No Acute Distress, Chronically Ill - Head Exam Head Exam: ATRAUMATIC, NORMOCEPHALIC - Eye Exam Eye Exam: EOMI, PERRL Pupil Exam: NORMAL ACCOMODATION, PERRL - ENT Exam ENT Exam: Mucous Membranes Moist, Normal External Ear Exam, TM's Normal Bilaterally - Neck Exam Neck Exam: Full ROM, Normal Inspection - Respiratory Exam Respiratory Exam: Decreased Breath Sounds. absent: Rales, Rhonchi, Wheezes Additional comments: bibasilar crackles. - Cardiovascular Exam Cardiovascular Exam: REGULAR RHYTHM, RRR, +S1, +S2 - GI/Abdominal Exam GI & Abdominal Exam: Distended, Soft. absent: Tenderness Additional comments: significant ascites. - Extremities Exam Extremities Exam: Full ROM Additional comments: general weakness and moderate lower body edema. - Neurological Exam Neurological Exam: Alert, Awake, CN II-XII Intact, Oriented x3 - Psychiatric Exam Psychiatric exam: Normal Affect, Normal Mood - Skin Additional comments: Jaundiced. Assessment and Plan - Assessment and Plan (Free Text) Assessment: 72 yo [place] male with significant abdominal distension, SOB, difficulty ambulating, and near syncopal episodes. CT of abdomen showing possible omental metastasis. Rapid accumulation of ascitic fluid given paracentesis and thoracentesis. Given CT scan of the abdomen, it appears the patient's cholangiocarcinoma is worsening with increased metastasis. Fevers could be secondary to malignancy. There are small bilateral pleural effusions bilaterally. Zosyn given for a potential pneumonia. The patient does not have leukocytosis. Could check procalcitonin and if significantly elevated, case for pneumonia can be made. Continue on Cefepime IV. Very poor overall prognosis... especially with possible omental metastasis. Noted Heme/Onc notes. Case discussed with Dr. Morales. Case discussed in detail with patient's son. Thank you for allowing me to participate in the care of the patient, we will follow with you.
--- NOTE | 2017-07-26 18:45 | CP.PCM.PN ---
Subjective - Date & Time of Evaluation Date of Evaluation: 07/26/17 Time of Evaluation: 20:00 - Subjective Subjective: No acute events overnight repeat CXR this AM shows no interval cahnge ROS 12 ROS otherwise negative; Objective - Vital Signs/Intake and Output Vital Signs (last 24 hours): Temp Pulse Resp BP Pulse Ox 97.7 F 100 H 22 113/75 99 07/26/17 08:01 07/26/17 08:01 07/26/17 08:01 07/26/17 08:01 07/26/17 08:01 Intake and Output: 07/26/17 07/26/17 06:59 18:59 Intake Total 600 Output Total 150 0 Balance -150 600 - Medications Medications: Current Medications Al Hydrox/Mg Hydrox/Simethicone (Maalox Plus 30 Ml) 30 ml PO Q4 PRN PRN Reason: INDIGESTION Bisacodyl (Dulcolax) 10 mg RC DAILY [facility] Last Admin: 07/26/17 11:36 Dose: 10 mg Docusate Sodium (Colace) 100 mg PO TID [facility] Last Admin: 07/26/17 18:31 Dose: 100 mg Cefepime HCl (Maxipime 1gm) 1 gm in 100 mls @ 100 mls/hr IVPB Q8 [facility] PRN Reason: Protocol Last Admin: 07/26/17 14:41 Dose: 100 mls/hr Insulin Human Lispro (Humalog Low) 0 units SC ACHS [facility] PRN Reason: Protocol Last Admin: 07/26/17 17:47 Dose: Not Given Levothyroxine Sodium (Synthroid) 100 mcg PO DAILY [facility] Last Admin: 07/26/17 11:34 Dose: 100 mcg Morphine Sulfate (Morphine) 3 mg IVP Q4H PRN PRN Reason: Pain, severe (8-10) Last Admin: 07/26/17 06:17 Dose: 3 mg Ondansetron HCl (Zofran Inj) 4 mg IVP Q4H PRN PRN Reason: Nausea/Vomiting Last Admin: 07/23/17 20:02 Dose: 4 mg Pantoprazole Sodium (Protonix Ec Tab) 40 mg PO DAILY [facility] Last Admin: 07/26/17 11:34 Dose: 40 mg Polyethylene Glycol (Miralax) 17 gm PO BID [facility] Last Admin: 07/26/17 18:32 Dose: 17 gm - Labs Labs: 06/17/18 05:10 07/26/17 05:10 PT 14.6 SECONDS (9.4-12.5) H 07/26/17 05:10 INR 1.27 (0.93-1.08) H 07/26/17 05:10 APTT 32.2 Seconds (25.1-36.5) 07/23/17 06:20 - Constitutional Appears: Non-toxic - Head Exam Head Exam: ATRAUMATIC, NORMAL INSPECTION, NORMOCEPHALIC - Cardiovascular Exam Cardiovascular Exam: REGULAR RHYTHM, +S1, +S2. absent: Murmur - GI/Abdominal Exam GI & Abdominal Exam: Soft, Normal Bowel Sounds. absent: Tenderness - Extremities Exam Extremities Exam: Full ROM, Normal Capillary Refill, Normal Inspection. absent : Joint Swelling, Pedal Edema Assessment and Plan - Assessment and Plan (Free Text) Assessment: Mr. 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 Chest tube continues to have notable output. Patient's pain is controlled. Plan on having CT a/p reviewed with OSH liver surgeon Dr. Guerra. If patient found to be a surgical candidate will discuss merits of surgery with patient and family. If surgery confirms that patient is not a candidate for surgery will disucss roll for addtionall palliative chemotherapy vs a symptomatic based approach and consideration for hopsice. Patient is very emphatic that he wants to see his family in [place] prior to dying. If surgery is not an option will disucss further with patient best plans subsequently with him. Discussed with Dr. Tianna Headley MD Oncology Service
[2017-07-27] MEDS: Cefepime 1gm in NS 100ml 1 GM/100 ML BAG IVPB SCH ×3 (05:52→22:09)
[2017-07-27] MEDS: Morphine 4 mg/ml ISec IVP PRN ×2 (05:53→22:09)
[2017-07-27] MEDS: Insulin Lispro (humaLOG) LOW Coverage SC SCH ×4 (07:54→22:25)
--- NOTE | 2017-07-27 08:04 | CP.PCM.PN ---
Subjective - Date & Time of Evaluation Date of Evaluation: 07/27/17 Time of Evaluation: 08:30 - Subjective Subjective: PGY2 Heme Onc progress note for Dr. Headley Patient seen and examined at bedside. Nursing reports patint was requesting pain medications and asked for 2 doses of morphine 3mg overnight. Patient is breathing well on 3L NC and using his incentive spirometer. Biliary drain output of 5cc overnight but is leaking. Patient is in good spirits and denied any acute complaints of pain, fever, headache, chest pain, SOB, cough, abd pain , nausea, vomiting, bowel/bladder complaints, pain/swelling in his legs b/l. Patient ate breakfast this AM and has a good appetite. Objective - Vital Signs/Intake and Output Vital Signs (last 24 hours): Temp Pulse Resp BP Pulse Ox 97.8 F 90 21 109/72 99 07/27/17 06:00 07/27/17 06:00 07/27/17 06:00 07/27/17 06:00 07/27/17 06:00 Intake and Output: 07/27/17 07/27/17 06:59 18:59 Intake Total 0 Output Total 400 5 Balance -400 -5 - Medications Medications: Current Medications Al Hydrox/Mg Hydrox/Simethicone (Maalox Plus 30 Ml) 30 ml PO Q4 PRN PRN Reason: INDIGESTION Bisacodyl (Dulcolax) 10 mg RC DAILY [facility] Last Admin: 07/26/17 11:36 Dose: 10 mg Docusate Sodium (Colace) 100 mg PO TID [facility] Last Admin: 07/26/17 18:31 Dose: 100 mg Cefepime HCl (Maxipime 1gm) 1 gm in 100 mls @ 100 mls/hr IVPB Q8 [facility] PRN Reason: Protocol Last Admin: 07/27/17 05:52 Dose: 100 mls/hr Insulin Human Lispro (Humalog Low) 0 units SC ACHS [facility] PRN Reason: Protocol Last Admin: 07/27/17 07:54 Dose: Not Given Levothyroxine Sodium (Synthroid) 100 mcg PO DAILY [facility] Last Admin: 07/26/17 11:34 Dose: 100 mcg Morphine Sulfate (Morphine) 3 mg IVP Q4H PRN PRN Reason: Pain, severe (8-10) Last Admin: 07/27/17 05:53 Dose: 3 mg Ondansetron HCl (Zofran Inj) 4 mg IVP Q4H PRN PRN Reason: Nausea/Vomiting Last Admin: 07/23/17 20:02 Dose: 4 mg Pantoprazole Sodium (Protonix Ec Tab) 40 mg PO DAILY [facility] Last Admin: 07/26/17 11:34 Dose: 40 mg Polyethylene Glycol (Miralax) 17 gm PO BID [facility] Last Admin: 07/26/17 18:32 Dose: 17 gm - Labs Labs: 07/26/17 05:10 07/26/17 05:10 PT 14.6 SECONDS (9.4-12.5) H 07/26/17 05:10 INR 1.27 (0.93-1.08) H 07/26/17 05:10 APTT 32.2 Seconds (25.1-36.5) 07/23/17 06:20 - Constitutional Appears: Cachectic, Chronically Ill - Head Exam Head Exam: ATRAUMATIC, NORMAL INSPECTION, NORMOCEPHALIC - Eye Exam Eye Exam: Normal appearance, PERRL. absent: Conjunctival injection, Scleral icterus - ENT Exam ENT Exam: Mucous Membranes Moist - Neck Exam Neck Exam: Full ROM - Respiratory Exam Respiratory Exam: NORMAL BREATHING PATTERN. absent: Respiratory Distress Additional comments: decreased breath sounds on Right - Cardiovascular Exam Cardiovascular Exam: +S1, +S2 - Neurological Exam Neurological Exam: Alert, Awake, Oriented x3 - Psychiatric Exam Psychiatric exam: Normal Affect, Normal Mood - Skin Skin Exam: Dry, Normal Color, Warm Assessment and Plan - Assessment and Plan (Free Text) Assessment: 72yo male 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 Patient was found to have ascites and pleural effusion and had large volume paracentesis with biliary stent exchange after which he was found to have right sided hydropneumothorax. Patient currently stable satting well on NC 3L and using IS. Patient's pain is well controlled and he has no acute complaints. Patient NPO for possible procedure with IR Dr. Guerra today. f/u fluid cytology. Consideration for palliative chemo vs hospice vs surgery. Surgical team on board - appreciate reccs. Palliative care nurse on board- appreciate reccs. IR and GI on board- appreciate reccs. Continue management as per primary Discussed with Dr. Kayode Rebolledo PGY2
--- NOTE | 2017-07-27 08:15 | CP.PCM.PN ---
Subjective - Date & Time of Evaluation Date of Evaluation: 07/27/17 Time of Evaluation: 07:11 - Subjective Subjective: Clifton Santoro PGY1 Surgery Progress Note for Dr. Bright Patient was seen and examined at bedside. He does not complain of n/v, chest pain or shortness of breath. There is mild abdominal tenderness at the incision site. Patient was educated on the use of incentive spirometer. Objective - Vital Signs/Intake and Output Vital Signs (last 24 hours): Temp Pulse Resp BP Pulse Ox 97.8 F 90 21 109/72 99 07/27/17 06:00 07/27/17 06:00 07/27/17 06:00 07/27/17 06:00 07/27/17 06:00 Intake and Output: 07/27/17 07/27/17 06:59 18:59 Intake Total 0 Output Total 400 5 Balance -400 -5 - Medications Medications: Current Medications Al Hydrox/Mg Hydrox/Simethicone (Maalox Plus 30 Ml) 30 ml PO Q4 PRN PRN Reason: INDIGESTION Bisacodyl (Dulcolax) 10 mg RC DAILY [facility] Last Admin: 07/26/17 11:36 Dose: 10 mg Docusate Sodium (Colace) 100 mg PO TID [facility] Last Admin: 07/26/17 18:31 Dose: 100 mg Cefepime HCl (Maxipime 1gm) 1 gm in 100 mls @ 100 mls/hr IVPB Q8 [facility] PRN Reason: Protocol Last Admin: 07/27/17 05:52 Dose: 100 mls/hr Insulin Human Lispro (Humalog Low) 0 units SC ACHS [facility] PRN Reason: Protocol Last Admin: 07/27/17 07:54 Dose: Not Given Levothyroxine Sodium (Synthroid) 100 mcg PO DAILY [facility] Last Admin: 07/26/17 11:34 Dose: 100 mcg Morphine Sulfate (Morphine) 3 mg IVP Q4H PRN PRN Reason: Pain, severe (8-10) Last Admin: 07/27/17 05:53 Dose: 3 mg Ondansetron HCl (Zofran Inj) 4 mg IVP Q4H PRN PRN Reason: Nausea/Vomiting Last Admin: 07/23/17 20:02 Dose: 4 mg Pantoprazole Sodium (Protonix Ec Tab) 40 mg PO DAILY [facility] Last Admin: 07/26/17 11:34 Dose: 40 mg Polyethylene Glycol (Miralax) 17 gm PO BID [facility] Last Admin: 07/26/17 18:32 Dose: 17 gm - Labs Labs: 07/26/17 05:10 07/26/17 05:10 PT 14.6 SECONDS (9.4-12.5) H 07/26/17 05:10 INR 1.27 (0.93-1.08) H 07/26/17 05:10 APTT 32.2 Seconds (25.1-36.5) 07/23/17 06:20 - Additional Findings Additional findings: - Constitutional Appears: Non-toxic, No Acute Distress - Head Exam Head Exam: ATRAUMATIC, NORMOCEPHALIC - Eye Exam Eye Exam: EOMI - ENT Exam ENT Exam: Mucous Membranes Moist - Respiratory Exam Respiratory Exam: NORMAL BREATHING PATTERN. absent: Respiratory Distress - Cardiovascular Exam Cardiovascular Exam: absent: Bradycardia - GI/Abdominal Exam GI & Abdominal Exam: Soft. absent: Distended, Tenderness Additional comments: Drain in place (50cc drained overnight) - Neurological Exam Neurological Exam: Alert, Awake - Skin Skin Exam: Dry, Warm Assessment and Plan - Assessment and Plan (Free Text) Assessment: 72M with a PMH of 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 s/p PTC with IR complicated by perihepatic fluid collection s/p drainage later with placement of an internal/external biliary drainage catheter & recurrent ascites consulted for right hydropneumothorax s/p paracentesis and exchange of biliary catheter with IR. Patient is currently stable, his breathing improved and is no respiratory distress, not a candidate for chest tube at this time. Plan: Continue to monitor breathing status Consent for chest tube obtained, in chart Change biliary dressing as needed IR plans for intervention No surgical intervention recommended at this time Will sign off at this time. Please reconsult if needed. Thank you. Case was reviewed and discussed with Dr. Bright
[2017-07-27 08:39] LABS: BASO # 0.02 K/mm3 (0.0-2.0); BASO % 0.2 % (0.0-3.0); EOS # 0.2 (0.0-0.7); EOS % 2.3 % (1.5-5.0); GRAN # 6.5 (1.4-6.5); HEMOGLOBIN 9.5 g/dL (14.0-18.0); LYMPH # 0.9 (1.2-3.4); MEAN CELL VOLUME 90.4 fl (80.0-105.0); MEAN CORPUSCULAR HEMOGLOBIN 30.5 pg (25.0-35.0); MEAN CORPUSCULAR HGB CONC 33.8 g/dl (31.0-37.0); MEAN PLATELET VOLUME 9.3 fl (7.0-11.0); MONO # 0.8 (0.1-0.6); MONO % 9.5 % (1.0-6.0); RBC 3.11 10^6/uL (3.5-6.1); WHITE BLOOD COUNT 8.4 10^3/ul (4.5-11.0)
[2017-07-27 08:48] LABS: ALB/GLOB RATIO 0.9 (1.1-1.8)
[2017-07-27 08:49] LABS: ALBUMIN 2.7 g/dL (3.0-4.8); ALT/SGPT 48 U/L (7-56); AST/SGOT 31 U/L (17-59); BLOOD UREA NITROGEN 23 mg/dL (7-21); GFR AFRICAN-AMERICAN > 60; GFR NON-AFRICAN AMERICAN > 60
[2017-07-27 08:51] LABS: INR 1.21 (0.93-1.08); PARTIAL THROMBOPLASTIN TIME 28.8 Seconds (25.1-36.5)
[2017-07-27] MEDS: POLYETHYLENE GLYCOL 3350 17 GM/Dose PACKET PO SCH ×2 (09:24→17:49)
[2017-07-27] MEDS: Levothyroxine 100 MCG TAB PO SCH (09:25)
[2017-07-27] MEDS: Pantoprazole 40 mg EC Tab PO SCH (09:25)
--- NOTE | 2017-07-27 10:47 | RAD ---
HISTORY: re-evaluate R pneumothorax/hydrothorax COMPARISON: 07/26/2017 FINDINGS: LUNGS: No active pulmonary disease. PLEURA: Large right-sided pleural effusion CARDIOVASCULAR: Mild cardiomegaly OSSEOUS STRUCTURES: No significant abnormalities. VISUALIZED UPPER ABDOMEN: Normal. OTHER FINDINGS: None. IMPRESSION: Increasing right-sided pleural effusion.
--- NOTE | 2017-07-27 12:50 | RAD ---
PROCEDURE: PA and lateral chest x-ray HISTORY: Cholangiocarcinoma. Right hydro pneumothorax. Needs thoracentesis. PHYSICIAN(S): Duarte Guerra MD. TECHNIQUE: FINDINGS: The inspiratory volumes are low. No pneumothorax is appreciated. There is a small to moderate residual right pleural effusion. There appears to be a small left pleural effusion. A right IJ port is present in good position. IMPRESSION: No pneumothorax. Small to moderate residual right pleural effusion.
--- NOTE | 2017-07-27 12:51 | US ---
PROCEDURE: Ultrasound guided right thoracentesis. CLINICAL HISTORY: Metastatic cholangiocarcinoma. Large right pleural effusion with shortness of breath. Needs thoracentesis. PHYSICIAN(S): Duarte Guerra MD. TECHNIQUE: The relative risks and indications of the procedure were explained to the patient through an historic interpreter and consent obtained. The patient was placed in a sitting position on the stretcher and sonography of the right chest performed. This revealed a moderate to large rightpleural effusion. A right posterolateral intercostal approach was selected and the area prepped and draped usual sterile fashion. 1% Xylocaine was used to anesthetize the skin and soft tissues. A 7 Polish thoracentesis catheter was trocared into the right pleural cavity and 2100 cc of richard fluid aspirated. A cytology specimen was sent. IMPRESSION: 1. Ultrasound guided right thoracentesis. 2100 cc of richard fluid were aspirated
--- NOTE | 2017-07-27 13:01 | CP.PCM.CON ---
History of Present Illness - History of Present Illness History of Present Illness: Palliative consult requested by Dr Skyla Crump Reason: Goals of care 72 year old male with history of cholangiocarcinoma who presented on 07/23/17 with shortness of breath, lower abdominal pain, weakness and lethargy. He also complained of chronic lower extremity swelling. He denied fever ,chills, nausea , vomiting, diarrhea or constipation. CT of abdomen showed massive ascites, omental metastasis, questionable subcapsular collection inferior right hepatic lobe. Chest CT showed moderate sized right pneumothorax with large right sided pleural effusion, atelectasis of RLL. Head CT negative. Vital Signs: T 98.1, P 90, BP 108/60, R 20, o2 sat 99%p Labs: Wbc8.4, Hgb 9.5, Plt 407, NA 135/K 4.7, BUN 12, Creat 0.7, AST 31, ALT 48 , Alk Phos 330 PMHx:metastatic cholangiocarcinoma, omental spread, ascites pleural effusions, s /p PTC , s/p external biliary drain, DM, CAD, s/p stents, bilateral lower extremity DVT's,constipation, cachexia. Social History: Former smoker, no alcohol or drug use. Lives with son. Family History: Non contributory Advance Care Planning: The patient does not have an Advanced Directive. Review of Systems: As per HPI, 10 point review negative. Past Patient History - Infectious Disease Hx of Infectious Diseases: None - Past Medical History & Family History Past Medical History?: Yes - Past Social History Smoking Status: Former Smoker - CARDIAC Hx Cardiac Disorders: Yes Hx Hypertension: Yes - PULMONARY Hx Respiratory Disorders: No - NEUROLOGICAL Hx Neurological Disorder: No - HEENT Hx HEENT Problems: Yes - RENAL Hx Chronic Kidney Disease: No - ENDOCRINE/METABOLIC Hx Diabetes Mellitus Type 2: Yes ((Pt. reports)) - HEMATOLOGICAL/ONCOLOGICAL Hx Cancer: Yes (mets to liver) - INTEGUMENTARY Hx Dermatological Problems: No - MUSCULOSKELETAL/RHEUMATOLOGICAL Hx Musculoskeletal Disorders: Yes Hx Back Pain: Yes Hx Falls: No - GASTROINTESTINAL Other/Comment: Biliary Drain placed one month ago 05/2017Liver cancer- Chemotherapy - GENITOURINARY/GYNECOLOGICAL Hx Prostate Problems: Yes - PSYCHIATRIC Hx Psychophysiologic Disorder: No Hx Substance Use: No - SURGICAL HISTORY Hx Cardiac Catheterization: Yes Hx Coronary Stent: Yes - ANESTHESIA Hx Anesthesia: Yes Hx Anesthesia Reactions: Yes Hx Malignant Hyperthermia: No Meds Allergies/Adverse Reactions: Allergies Allergy/AdvReac Type Severity Reaction Status Date / Time No Known Allergies Allergy Verified 06/21/17 00:56 - Medications Medications: Current Medications Al Hydrox/Mg Hydrox/Simethicone (Maalox Plus 30 Ml) 30 ml PO Q4 PRN PRN Reason: INDIGESTION Bisacodyl (Dulcolax) 10 mg RC DAILY [facility] Last Admin: 07/27/17 09:24 Dose: 10 mg Docusate Sodium (Colace) 100 mg PO TID [facility] Last Admin: 07/27/17 09:23 Dose: 100 mg Cefepime HCl (Maxipime 1gm) 1 gm in 100 mls @ 100 mls/hr IVPB Q8 [facility] PRN Reason: Protocol Last Admin: 07/27/17 05:52 Dose: 100 mls/hr Insulin Human Lispro (Humalog Low) 0 units SC ACHS [facility] PRN Reason: Protocol Last Admin: 07/27/17 11:58 Dose: Not Given Levothyroxine Sodium (Synthroid) 100 mcg PO DAILY [facility] Last Admin: 07/27/17 09:25 Dose: 100 mcg Morphine Sulfate (Morphine) 3 mg IVP Q4H PRN PRN Reason: Pain, severe (8-10) Last Admin: 07/27/17 05:53 Dose: 3 mg Ondansetron HCl (Zofran Inj) 4 mg IVP Q4H PRN PRN Reason: Nausea/Vomiting Last Admin: 07/23/17 20:02 Dose: 4 mg Pantoprazole Sodium (Protonix Ec Tab) 40 mg PO DAILY [facility] Last Admin: 07/27/17 09:25 Dose: 40 mg Polyethylene Glycol (Miralax) 17 gm PO BID [facility] Last Admin: 07/27/17 09:24 Dose: 17 gm Physical Exam - Constitutional Appears: Cachectic, Chronically Ill - Head Exam Head Exam: NORMOCEPHALIC - Eye Exam Eye Exam: Normal appearance, Scleral icterus - ENT Exam ENT Exam: Mucous Membranes Moist, Normal Oropharynx - Respiratory Exam Respiratory Exam: Decreased Breath Sounds, NORMAL BREATHING PATTERN - Cardiovascular Exam Cardiovascular Exam: REGULAR RHYTHM, +S1, +S2 - GI/Abdominal Exam GI & Abdominal Exam: Distended, Soft, Tenderness - Extremities Exam Additional comments: 2 + edema of both lower extremities - Neurological Exam Neurological exam: Alert - Skin Skin Exam: Dry, Pallor Additional comments: jaundice - Additional Findings Additional findings: Palliative performance scale rating 30 % Results - Vital Signs Recent Vital Signs: Last Vital Signs Temp 97.8 F 07/27/17 06:00 Pulse 90 07/27/17 06:00 Resp 21 07/27/17 06:00 BP 109/72 07/27/17 06:00 Pulse Ox 99 07/27/17 06:00 - Labs Result Diagrams: 07/27/17 08:30 07/27/17 08:30 Labs: Laboratory Results - last 24 hr 07/26/17 07/26/17 07/26/17 06:00 17:43 21:26 WBC RBC Hgb Hct MCV MCH MCHC RDW Plt Count MPV Gran % Lymph % (Auto) [place] % (Auto) Eos % (Auto) Baso % (Auto) Gran # Lymph # (Auto) [place] # (Auto) Eos # (Auto) Baso # (Auto) PT INR APTT Sodium Potassium Chloride Carbon Dioxide Anion Gap BUN Creatinine Est GFR ( Amer) Est GFR (Non-Af Amer) POC Glucose (mg/dL) 132 H 162 H Random Glucose Calcium Total Bilirubin AST ALT Alkaline Phosphatase Total Protein Albumin Globulin Albumin/Globulin Ratio Procalcitonin 0.96 H 07/27/17 07/27/17 07/27/17 07:16 08:30 08:30 WBC 8.4 RBC 3.11 L Hgb 9.5 L Hct 28.1 L MCV 90.4 MCH 30.5 MCHC 33.8 RDW 18.0 H Plt Count 407 MPV 9.3 Gran % 77.0 H Lymph % (Auto) 11.0 L [place] % (Auto) 9.5 H Eos % (Auto) 2.3 Baso % (Auto) 0.2 Gran # 6.50 Lymph # (Auto) 0.9 L [place] # (Auto) 0.8 H Eos # (Auto) 0.2 Baso # (Auto) 0.02 PT INR APTT Sodium 135 Potassium 4.7 Chloride 100 Carbon Dioxide 28 Anion Gap 12 BUN 23 H Creatinine 0.7 L Est GFR ( Amer) > 60 Est GFR (Non-Af Amer) > 60 POC Glucose (mg/dL) 131 H Random Glucose 126 H Calcium 8.0 L Total Bilirubin 1.3 AST 31 ALT 48 Alkaline Phosphatase 330 H Total Protein 5.7 L Albumin 2.7 L Globulin 3.1 Albumin/Globulin Ratio 0.9 L Procalcitonin 07/27/17 07/27/17 08:30 11:15 WBC RBC Hgb Hct MCV MCH MCHC RDW Plt Count MPV Gran % Lymph % (Auto) [place] % (Auto) Eos % (Auto) Baso % (Auto) Gran # Lymph # (Auto) [place] # (Auto) Eos # (Auto) Baso # (Auto) PT 14.0 H INR 1.21 H APTT 28.8 Sodium Potassium Chloride Carbon Dioxide Anion Gap BUN Creatinine Est GFR ( Amer) Est GFR (Non-Af Amer) POC Glucose (mg/dL) 162 H Random Glucose Calcium Total Bilirubin AST ALT Alkaline Phosphatase Total Protein Albumin Globulin Albumin/Globulin Ratio Procalcitonin Assessment & Plan - Assessment and Plan (Free Text) Assessment: 72 year old male with history of metastatic cholangiocarcinoma, ascites, s/p external bilairy catheter who is admitted with hydropneumothorax, respiratory distress, cachexia, weakness and deconditioning Patient/ family known to me from previous admission. Son at bedside. Goals of care discussed. Explained that patient is weaker and more debilitated. I asked son if he intends to take father back to [place] as he had indicated during our last meeting. Son states that he is still considering this. I explained that as his father gets weaker, it will be difficult for him to travel and that he may not be able to get him back. Son acknowledges this. Son states he intends to follow up at [facility] to see if his father is still a candidate for surgery. Encouraged son to consider advance care planning specific to DNR/DNI. Although I have had this discussion with patient and son in the past, both have been reluctant to initiate DNR/DNI. Both have been told of the ramifications of aggressive resuscitation, specifically outcome in patients with terminal illness. Time spent with patient and son in goals of care discussion, 30 minutes Plan: Right hydropneumothorax: s/p thoracentisis O 2, monitor 02 sat Ascites: s/p paracentisis, [place] as needed Cholangiocarcinoma: Follow up with oncology regarding treatment plan Biliary dilatation; s/p biliary drain, monitor for obstruction Goals of care and advance care planning
--- NOTE | 2017-07-27 13:18 | CP.PCM.PN ---
<Salud Rowe - Last Filed: 07/27/17 13:10> Subjective - Date & Time of Evaluation Date of Evaluation: 07/27/17 Time of Evaluation: 13:10 - Subjective Subjective: Salud Rowe, PGY1, Medicine Progress Note for Dr Ha: Patient seen and examined at bedside. No acute events overnight. Denies cp, sob , fever, chills, nausea, vomiting, abdominal pain. Pt s/p thoracentesis 2.1 L richard fluid. Objective - Vital Signs/Intake and Output Vital Signs (last 24 hours): Temp Pulse Resp BP Pulse Ox 97.8 F 90 21 109/72 99 07/27/17 06:00 07/27/17 06:00 07/27/17 06:00 07/27/17 06:00 07/27/17 06:00 Intake and Output: 07/27/17 07/27/17 06:59 18:59 Intake Total 0 Output Total 400 5 Balance -400 -5 - Medications Medications: Current Medications Al Hydrox/Mg Hydrox/Simethicone (Maalox Plus 30 Ml) 30 ml PO Q4 PRN PRN Reason: INDIGESTION Bisacodyl (Dulcolax) 10 mg RC DAILY [facility] Last Admin: 07/27/17 09:24 Dose: 10 mg Docusate Sodium (Colace) 100 mg PO TID [facility] Last Admin: 07/27/17 09:23 Dose: 100 mg Cefepime HCl (Maxipime 1gm) 1 gm in 100 mls @ 100 mls/hr IVPB Q8 [facility] PRN Reason: Protocol Last Admin: 07/27/17 05:52 Dose: 100 mls/hr Insulin Human Lispro (Humalog Low) 0 units SC ACHS [facility] PRN Reason: Protocol Last Admin: 07/27/17 11:58 Dose: Not Given Levothyroxine Sodium (Synthroid) 100 mcg PO DAILY [facility] Last Admin: 07/27/17 09:25 Dose: 100 mcg Morphine Sulfate (Morphine) 3 mg IVP Q4H PRN PRN Reason: Pain, severe (8-10) Last Admin: 07/27/17 05:53 Dose: 3 mg Ondansetron HCl (Zofran Inj) 4 mg IVP Q4H PRN PRN Reason: Nausea/Vomiting Last Admin: 07/23/17 20:02 Dose: 4 mg Pantoprazole Sodium (Protonix Ec Tab) 40 mg PO DAILY [facility] Last Admin: 07/27/17 09:25 Dose: 40 mg Polyethylene Glycol (Miralax) 17 gm PO BID [facility] Last Admin: 07/27/17 09:24 Dose: 17 gm - Labs Labs: 07/27/17 08:30 07/27/17 08:30 PT 14.0 SECONDS (9.4-12.5) H 07/27/17 08:30 INR 1.21 (0.93-1.08) H 07/27/17 08:30 APTT 28.8 Seconds (25.1-36.5) 07/27/17 08:30 - Additional Findings Additional findings: - Constitutional Appears: No Acute Distress, Chronically Ill - Head Exam Head Exam: ATRAUMATIC, NORMOCEPHALIC - Eye Exam Eye Exam: EOMI, PERRL. absent: Conjunctival injection, Scleral icterus Pupil Exam: NORMAL ACCOMODATION, PERRL. absent: Fixed, Irregular, Miosis, Unequal - ENT Exam ENT Exam: Mucous Membranes Moist - Neck Exam Neck exam: Positive for: Full Rom - Respiratory Exam Respiratory Exam: Decreased Breath Sounds (at bilateral bases, R>L). Dullness to percussion on right lower lung base. absent: Chest Wall Tenderness, Wheezes, Respiratory Distress, Stridor Additional comments: - Cardiovascular Exam Cardiovascular Exam: +S1, +S2. absent: Systolic Murmur - GI/Abdominal Exam GI & Abdominal Exam: soft, Normal Bowel Sounds. + biliary tube draining bilious fluid. absent: Firm, Guarding, Rebound, Rigid. - Extremities Exam Extremities exam: Positive for: pedal edema (2-3+ bilaterally), pedal pulses present. Negative for: calf tenderness - Back Exam Back exam: NORMAL INSPECTION. absent: CVA tenderness (L), CVA tenderness (R) - Neurological Exam Neurological exam: Alert, Oriented x3 - Psychiatric Exam Psychiatric exam: Normal Affect, Normal Mood - Skin Skin Exam: Dry, Normal Color, Warm Assessment and Plan - Assessment and Plan (Free Text) Assessment: 72 year old [place]ian male with PMH metastatic cholangiocarcinoma with liver mets , status-post drainage of a subcapsular hematoma, status post conversion to a 14 -gauge internal-external drain into the duodenum on kletsel dehe wintun therapy with gemcitabine, hypertension, CAD, presents for fever, worsening abdominal distention, constipation, generalized weakness, found to have massive ascites and bilateral pleural effusions, s/p paracentesis 3L and biliary stent exchange. Pt also found to have right sided hydropneumothorax, s/p thoracentesis 2.1 L richard fluid today: Right sided hydropneumothorax s/p thoracentesis: - thoracentesis today, drained 2.1L richard fluid, sent for cytology - saturating well - incentive spirometer - monitor Massive ascite s/p paracentesis: - paracentesis 3L drained. No fluid sent for analysis due recent drainage. - received albumin - CT abdomen/pelvis shows massive ascites. probable omental metastasis. Hepatic neoplasm, multifocal. ? subscapular collection inferior right hepatic lobe. PTC catheter. Extensive intrahepatic biliary ductal dilatation. B/l pleural effusion , R>L, compressive atelectasis R>L. - IR consulted. Appreciate recs. S/p paracentesis and biliary stent change tomorrow. - Heme-Onc and GI consulted. F/u recs. - Colace tid, miralax bid. s/p Mag citrate - Cefepime Bilateral pleural effusion: - saturating well - monitor Hypokalemia: - resolved - monitor Hyponatremia: - resolved - will monitor History of bilateral DVTs: - Lovenox 70 mg sq q12 - bridging with Coumadin. Discussed with Dr Headley. - daily INR History of anemia: 2/2 anemia of chronic disease - Hgb stable - Monitor - daily cbc History of CAD: - ASA 81 mg daily Hx of DM: - ISS low Hx of hypothyroidism: - Levothyroxine 100 mcg daily PPX: protonix, Lovenox sq Case seen and examined with Dr Ha. Salud Rowe, PGY1 <Nieves Ha - Last Filed: 07/27/17 13:46> Objective - Vital Signs/Intake and Output Vital Signs (last 24 hours): Temp Pulse Resp BP Pulse Ox 97.8 F 90 21 109/72 99 07/27/17 06:00 07/27/17 06:00 07/27/17 06:00 07/27/17 06:00 07/27/17 06:00 Intake and Output: 06/18/18 06/18/18 06:59 18:59 Intake Total 0 Output Total 400 5 Balance -400 -5 - Medications Medications: Current Medications Al Hydrox/Mg Hydrox/Simethicone (Maalox Plus 30 Ml) 30 ml PO Q4 PRN PRN Reason: INDIGESTION Bisacodyl (Dulcolax) 10 mg RC DAILY [facility] Last Admin: 07/27/17 09:24 Dose: 10 mg Docusate Sodium (Colace) 100 mg PO TID [facility] Last Admin: 07/27/17 09:23 Dose: 100 mg Enoxaparin Sodium (Lovenox) 70 mg SC Q12H [facility] PRN Reason: Protocol Cefepime HCl (Maxipime 1gm) 1 gm in 100 mls @ 100 mls/hr IVPB Q8 [facility] PRN Reason: Protocol Last Admin: 07/27/17 05:52 Dose: 100 mls/hr Insulin Human Lispro (Humalog Low) 0 units SC ACHS [facility] PRN Reason: Protocol Last Admin: 07/27/17 11:58 Dose: Not Given Levothyroxine Sodium (Synthroid) 100 mcg PO DAILY [facility] Last Admin: 07/27/17 09:25 Dose: 100 mcg Morphine Sulfate (Morphine) 3 mg IVP Q4H PRN PRN Reason: Pain, severe (8-10) Last Admin: 07/27/17 05:53 Dose: 3 mg Ondansetron HCl (Zofran Inj) 4 mg IVP Q4H PRN PRN Reason: Nausea/Vomiting Last Admin: 07/23/17 20:02 Dose: 4 mg Pantoprazole Sodium (Protonix Ec Tab) 40 mg PO DAILY [facility] Last Admin: 07/27/17 09:25 Dose: 40 mg Polyethylene Glycol (Miralax) 17 gm PO BID [facility] Last Admin: 07/27/17 09:24 Dose: 17 gm Warfarin Sodium (Coumadin) 4 mg PO 1800 [facility] PRN Reason: Protocol - Labs Labs: 07/27/17 08:30 07/27/17 08:30 PT 14.0 SECONDS (9.4-12.5) H 07/27/17 08:30 INR 1.21 (0.93-1.08) H 07/27/17 08:30 APTT 28.8 Seconds (25.1-36.5) 07/27/17 08:30 Attending/Attestation - Attestation I have personally seen and examined this patient.: Yes I have fully participated in the care of the patient.: Yes I have reviewed all pertinent clinical information, including history, physical exam and plan: Yes Notes (Text): 07/27/17 13:41 72 year old male with past medical history of metastatic cholangiocarcinoma with liver mets, s/p drainage of subcapsular hematomoa, s/p internal/external drain converstion, on chemotherapy, hypertension, and CAD who presented with abdominal pain and distention. He was found to have ascites and bilateral pleural effusions. He is s/p paracentesis and biliary stent exchange last week. He was then found to have right sided hydropneumothorax s/p thoracocentesis today. He is being followed by GI, surgery and hematology. He is on lovenox for history of bilateral DVT. Neives Ha MD Hospitalist.
[2017-07-27] MEDS: Enoxaparin 80 mg Syringe SC SCH (13:45)
--- NOTE | 2017-07-27 17:24 | CP.PCM.PN ---
Subjective - Date & Time of Evaluation Date of Evaluation: 07/27/17 Time of Evaluation: 16:30 - Subjective Subjective: Infectious Disease Follow Up: July 27, 2017 72 citizen of [place] speaking [place]ian male with a PMHx of cholangiocarcinoma with liver mets, hypertension, diabetes, CAD s/p stents, obstructive jaundice, and intrahepatic ducal dilatation s/p biliary drain placement, presents to the emergency department for several days of constipation, worsening abdominal distension and tenderness specifically on the left quadrants, near syncopal episode, and occasional SOB. Patient was recently admitted to [facility] and discharged 8 days ago. Poor PO intake is becoming the patient's normal as per the son. CT abdomen done on current hospitalization is now showing massive ascites, possible omental metastasis, and multifocal hepatic neoplasm. Patient was seen and examined at bedside. History of lower extremity swelling and tenderness. Patient denies chills, chest pains, nausea, vomiting, diarrhea, dysuria. Cultures negative to date. On Cefepime IV. Temperature as low as 97.7 F today. Afebrile so far today. Had prolonged discussion with the patient's son in room yesterday. Finding of possible Omental metastasis on multiple imaging studies. The patient has biliary drain in place. Patient does not have a chest tube. Surgery was not going to place one at this time. Objective - Vital Signs/Intake and Output Vital Signs (last 24 hours): Temp Pulse Resp BP Pulse Ox 97.8 F 90 21 109/72 99 07/27/17 06:00 07/27/17 06:00 07/27/17 06:00 07/27/17 06:00 07/27/17 06:00 Intake and Output: 07/27/17 07/27/17 06:59 18:59 Intake Total 360 Output Total 400 5 Balance -400 355 - Medications Medications: Current Medications Al Hydrox/Mg Hydrox/Simethicone (Maalox Plus 30 Ml) 30 ml PO Q4 PRN PRN Reason: INDIGESTION Bisacodyl (Dulcolax) 10 mg RC DAILY [facility] Last Admin: 07/27/17 09:24 Dose: 10 mg Docusate Sodium (Colace) 100 mg PO TID [facility] Last Admin: 07/27/17 13:44 Dose: 100 mg Enoxaparin Sodium (Lovenox) 70 mg SC Q12H [facility] PRN Reason: Protocol Last Admin: 07/27/17 13:45 Dose: 70 mg Cefepime HCl (Maxipime 1gm) 1 gm in 100 mls @ 100 mls/hr IVPB Q8 [facility] PRN Reason: Protocol Last Admin: 07/27/17 13:45 Dose: 100 mls/hr Insulin Human Lispro (Humalog Low) 0 units SC ACHS [facility] PRN Reason: Protocol Last Admin: 07/27/17 11:58 Dose: Not Given Levothyroxine Sodium (Synthroid) 100 mcg PO DAILY [facility] Last Admin: 07/27/17 09:25 Dose: 100 mcg Morphine Sulfate (Morphine) 3 mg IVP Q4H PRN PRN Reason: Pain, severe (8-10) Last Admin: 07/27/17 05:53 Dose: 3 mg Ondansetron HCl (Zofran Inj) 4 mg IVP Q4H PRN PRN Reason: Nausea/Vomiting Last Admin: 07/23/17 20:02 Dose: 4 mg Pantoprazole Sodium (Protonix Ec Tab) 40 mg PO DAILY [facility] Last Admin: 07/27/17 09:25 Dose: 40 mg Polyethylene Glycol (Miralax) 17 gm PO BID [facility] Last Admin: 07/27/17 09:24 Dose: 17 gm Warfarin Sodium (Coumadin) 4 mg PO 1800 [facility] PRN Reason: Protocol - Labs Labs: 07/27/17 08:30 07/27/17 08:30 PT 14.0 SECONDS (9.4-12.5) H 07/27/17 08:30 INR 1.21 (0.93-1.08) H 07/27/17 08:30 APTT 28.8 Seconds (25.1-36.5) 07/27/17 08:30 - Constitutional Appears: Non-toxic, No Acute Distress, Chronically Ill - Head Exam Head Exam: ATRAUMATIC, NORMOCEPHALIC - Eye Exam Eye Exam: EOMI, PERRL Pupil Exam: NORMAL ACCOMODATION, PERRL - ENT Exam ENT Exam: Mucous Membranes Moist, Normal External Ear Exam, TM's Normal Bilaterally - Neck Exam Neck Exam: Full ROM, Normal Inspection - Respiratory Exam Respiratory Exam: Decreased Breath Sounds. absent: Rales, Rhonchi, Wheezes Additional comments: bibasilar crackles. - Cardiovascular Exam Cardiovascular Exam: REGULAR RHYTHM, RRR, +S1, +S2 - GI/Abdominal Exam GI & Abdominal Exam: Distended, Soft. absent: Tenderness Additional comments: significant ascites. - Extremities Exam Additional comments: general weakness and moderate lower body edema. - Neurological Exam Neurological Exam: Alert, Awake, CN II-XII Intact, Oriented x3 - Psychiatric Exam Psychiatric exam: Normal Affect, Normal Mood - Skin Additional comments: mild jaundice Assessment and Plan - Assessment and Plan (Free Text) Assessment: 72 yo Croatian male with significant abdominal distension, SOB, difficulty ambulating, and near syncopal episodes. CT of abdomen showing possible omental metastasis. Rapid accumulation of ascitic fluid given paracentesis and thoracentesis. Given CT scan of the abdomen, it appears the patient's cholangiocarcinoma is worsening with increased metastasis. Fevers could be secondary to malignancy. There are small bilateral pleural effusions bilaterally. Zosyn given for a potential pneumonia. The patient does not have leukocytosis. Could check procalcitonin and if significantly elevated, case for pneumonia can be made. Continue on Cefepime IV. Very poor overall prognosis... especially with possible omental metastasis. I expressed this to the patient and his son regarding the poor prognosis. Patient at this time remains a full Code status. Noted Heme/Onc notes. Case discussed with Dr. Morales. Case discussed in detail with patient's son. Thank you for allowing me to participate in the care of the patient, we will follow with you.
--- NOTE | 2017-07-27 20:32 | PN ---
DATE: 07/27/2017 Mark Lynch has a chest tube placed by Dr. Guerra, draining almost 2 liters of serous fluid in the right chest. He is much more comfortable now. I will follow peripherally and expectantly. Please re-call as necessary. Bakari Bright MD
[2017-07-28] MEDS: Enoxaparin 80 mg Syringe SC SCH ×2 (02:06→13:05)
[2017-07-28] MEDS: Cefepime 1gm in NS 100ml 1 GM/100 ML BAG IVPB SCH ×3 (06:20→21:42)
--- NOTE | 2017-07-28 07:59 | CP.PCM.PN ---
Subjective - Date & Time of Evaluation Date of Evaluation: 07/28/17 Time of Evaluation: 08:30 - Subjective Subjective: PGY2 Heme Onc Progress note for Dr. Headley Patient seen and examined at bedside. Patient is good spirits this AM. Patient s /p R thoracentesis with IR which drained 2L serous fluid. Patient had no acute events overnight as per nursing. Biliary drain has minimal output 5cc and is still leaking. Patient reported pain in his back had greatly improved and he is having no trouble breathing. Denied acute complaints of fever, chills, headache , dizziness, chest pain, palpitations, SOB, cough, abd pain, nausea, vomiting, bowel/bladder complaints, pain in his legs b/l. Patient's feet continue to be swollen b/l. He is eating well and using IS. Objective - Vital Signs/Intake and Output Vital Signs (last 24 hours): Temp Pulse Resp BP Pulse Ox 97.4 F L 93 H 20 105/68 98 07/27/17 18:41 07/27/17 18:41 07/27/17 18:41 07/27/17 18:41 07/27/17 18:41 Intake and Output: 07/28/17 07/28/17 06:59 18:59 Intake Total 360 Output Total 500 Balance -140 - Medications Medications: Current Medications Al Hydrox/Mg Hydrox/Simethicone (Maalox Plus 30 Ml) 30 ml PO Q4 PRN PRN Reason: INDIGESTION Bisacodyl (Dulcolax) 10 mg RC DAILY [facility] Last Admin: 07/27/17 09:24 Dose: 10 mg Docusate Sodium (Colace) 100 mg PO TID [facility] Last Admin: 07/27/17 17:49 Dose: 100 mg Enoxaparin Sodium (Lovenox) 70 mg SC Q12H [facility] PRN Reason: Protocol Last Admin: 07/28/17 02:06 Dose: 70 mg Cefepime HCl (Maxipime 1gm) 1 gm in 100 mls @ 100 mls/hr IVPB Q8 [facility] PRN Reason: Protocol Last Admin: 07/28/17 06:20 Dose: 100 mls/hr Insulin Human Lispro (Humalog Low) 0 units SC ACHS [facility] PRN Reason: Protocol Last Admin: 07/27/17 22:25 Dose: Not Given Levothyroxine Sodium (Synthroid) 100 mcg PO DAILY [facility] Last Admin: 07/27/17 09:25 Dose: 100 mcg Morphine Sulfate (Morphine) 3 mg IVP Q4H PRN PRN Reason: Pain, severe (8-10) Last Admin: 07/27/17 22:09 Dose: 3 mg Ondansetron HCl (Zofran Inj) 4 mg IVP Q4H PRN PRN Reason: Nausea/Vomiting Last Admin: 07/23/17 20:02 Dose: 4 mg Pantoprazole Sodium (Protonix Ec Tab) 40 mg PO DAILY [facility] Last Admin: 07/27/17 09:25 Dose: 40 mg Polyethylene Glycol (Miralax) 17 gm PO BID [facility] Last Admin: 07/27/17 17:49 Dose: 17 gm Warfarin Sodium (Coumadin) 4 mg PO 1800 [facility] PRN Reason: Protocol Last Admin: 07/27/17 17:48 Dose: 4 mg - Labs Labs: 07/27/17 08:30 07/27/17 08:30 PT 14.0 SECONDS (9.4-12.5) H 07/27/17 08:30 INR 1.21 (0.93-1.08) H 07/27/17 08:30 APTT 28.8 Seconds (25.1-36.5) 07/27/17 08:30 - Constitutional Appears: Chronically Ill - Head Exam Head Exam: ATRAUMATIC, NORMAL INSPECTION, NORMOCEPHALIC - Eye Exam Eye Exam: EOMI, Normal appearance, PERRL. absent: Conjunctival injection, Scleral icterus Pupil Exam: NORMAL ACCOMODATION - ENT Exam ENT Exam: Mucous Membranes Moist, Normal Oropharynx - Neck Exam Neck Exam: Full ROM - Respiratory Exam Respiratory Exam: Decreased Breath Sounds (right side), NORMAL BREATHING PATTERN. absent: Accessory Muscle Use, Rales, Rhonchi, Wheezes, Respiratory Distress - Cardiovascular Exam Cardiovascular Exam: +S1, +S2 - GI/Abdominal Exam GI & Abdominal Exam: Soft. 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 Patient was found to have ascites and pleural effusion and had large volume paracentesis with biliary stent exchange after which he was found to have right sided hydropneumothorax. Patient had thoracentesis 07/27 that drained 2.1L serous output- will f/u fluid cytology. Patient currently stable satting well on NC 3L and using IS. Patient's pain is well controlled and he has no acute complaints. Pt currently undergoing bridging therapy to Coumadin for bilateral DVTs. Consideration for palliative chemo vs hospice vs surgery. Surgical team on board - appreciate reccs. Palliative care nurse on board- appreciate reccs. IR and GI on board- appreciate reccs. Continue management as per primary Discussed with Dr. Kayode Rebolledo PGY2
[2017-07-28] MEDS: Morphine 4 mg/ml ISec IVP PRN ×2 (08:17→18:17)
[2017-07-28 08:23] LABS: BASO # 0.03 K/mm3 (0.0-2.0); BASO % 0.3 % (0.0-3.0); EOS # 0.2 (0.0-0.7); EOS % 2.4 % (1.5-5.0); GRAN # 7.26 (1.4-6.5); GRAN % 72.6 % (50.0-68.0); HEMOGLOBIN 9.4 g/dL (14.0-18.0); LYMPH # 1.4 (1.2-3.4); LYMPH % 13.5 % (22.0-35.0); MEAN CELL VOLUME 90.7 fl (80.0-105.0); MEAN CORPUSCULAR HEMOGLOBIN 30.2 pg (25.0-35.0); MEAN CORPUSCULAR HGB CONC 33.3 g/dl (31.0-37.0); MEAN PLATELET VOLUME 9.5 fl (7.0-11.0); MONO # 1.1 (0.1-0.6); MONO % 11.2 % (1.0-6.0); RBC 3.11 10^6/uL (3.5-6.1)
[2017-07-28 08:34] LABS: ALB/GLOB RATIO 0.9 (1.1-1.8); ALBUMIN 2.6 g/dL (3.0-4.8); ALT/SGPT 40 U/L (7-56); AST/SGOT 36 U/L (17-59); BLOOD UREA NITROGEN 21 mg/dL (7-21); CALCIUM 7.7 mg/dL (8.4-10.5); GFR AFRICAN-AMERICAN > 60; GFR NON-AFRICAN AMERICAN > 60
[2017-07-28] MEDS: Insulin Lispro (humaLOG) LOW Coverage SC SCH ×3 (08:40→16:51)
[2017-07-28] MEDS: Pantoprazole 40 mg EC Tab PO SCH (09:07)
[2017-07-28] MEDS: POLYETHYLENE GLYCOL 3350 17 GM/Dose PACKET PO SCH (09:07)
[2017-07-28] MEDS: Levothyroxine 100 MCG TAB PO SCH (09:07)
[2017-07-28 09:09] LABS: INR 1.48 (0.93-1.08); PROTHROMBIN TIME 17.1 SECONDS (9.4-12.5)
--- NOTE | 2017-07-28 10:17 | CP.PCM.PN ---
<Salud Rowe - Last Filed: 07/28/17 10:13> Subjective - Date & Time of Evaluation Date of Evaluation: 07/28/17 Time of Evaluation: 10:13 - Subjective Subjective: Salud Rowe, PGY1, Medicine Progress Note for Dr Ha: Patient seen and examined at bedside. No acute events overnight. Pt reports one formed BM yesterday. States that he would like his daily dulcolax, but does not want miralax. Denies cp, sob, fever, chills, nausea, vomiting, abdominal pain, bleeding. Objective - Vital Signs/Intake and Output Vital Signs (last 24 hours): Temp Pulse Resp BP Pulse Ox 97.7 F 98 H 20 101/70 96 07/28/17 06:00 07/28/17 06:00 07/28/17 06:00 07/28/17 06:00 07/28/17 06:00 Intake and Output: 07/28/17 07/28/17 06:59 18:59 Intake Total 360 Output Total 500 Balance -140 - Medications Medications: Current Medications Al Hydrox/Mg Hydrox/Simethicone (Maalox Plus 30 Ml) 30 ml PO Q4 PRN PRN Reason: INDIGESTION Bisacodyl (Dulcolax) 10 mg RC DAILY [facility] Last Admin: 07/28/17 09:07 Dose: 10 mg Docusate Sodium (Colace) 100 mg PO TID [facility] Last Admin: 07/28/17 09:07 Dose: 100 mg Enoxaparin Sodium (Lovenox) 70 mg SC Q12H [facility] PRN Reason: Protocol Last Admin: 07/28/17 02:06 Dose: 70 mg Cefepime HCl (Maxipime 1gm) 1 gm in 100 mls @ 100 mls/hr IVPB Q8 [facility] PRN Reason: Protocol Last Admin: 07/28/17 06:20 Dose: 100 mls/hr Insulin Human Lispro (Humalog Low) 0 units SC ACHS [facility] PRN Reason: Protocol Last Admin: 07/28/17 08:40 Dose: Not Given Levothyroxine Sodium (Synthroid) 100 mcg PO DAILY [facility] Last Admin: 07/28/17 09:07 Dose: 100 mcg Morphine Sulfate (Morphine) 3 mg IVP Q4H PRN PRN Reason: Pain, severe (8-10) Last Admin: 07/28/17 08:17 Dose: 3 mg Ondansetron HCl (Zofran Inj) 4 mg IVP Q4H PRN PRN Reason: Nausea/Vomiting Last Admin: 07/23/17 20:02 Dose: 4 mg Pantoprazole Sodium (Protonix Ec Tab) 40 mg PO DAILY [facility] Last Admin: 07/28/17 09:07 Dose: 40 mg Warfarin Sodium (Coumadin) 5 mg PO 1800 [facility] PRN Reason: Protocol - Labs Labs: 07/28/17 08:00 07/28/17 08:00 PT 17.1 SECONDS (9.4-12.5) H 07/28/17 08:40 INR 1.48 (0.93-1.08) H 07/28/17 08:40 APTT 28.8 Seconds (25.1-36.5) 07/27/17 08:30 - Additional Findings Additional findings: - Constitutional Appears: No Acute Distress, Chronically Ill - Head Exam Head Exam: ATRAUMATIC, NORMOCEPHALIC - Eye Exam Eye Exam: EOMI, PERRL. absent: Conjunctival injection, Scleral icterus Pupil Exam: NORMAL ACCOMODATION, PERRL. absent: Fixed, Irregular, Miosis, Unequal - ENT Exam ENT Exam: Mucous Membranes Moist - Neck Exam Neck exam: Positive for: Full Rom - Respiratory Exam Respiratory Exam: Decreased Breath Sounds. right sided thoracentesis dressing in place, c/d/i. absent: Chest Wall Tenderness, Wheezes, Respiratory Distress, Stridor - Cardiovascular Exam Cardiovascular Exam: +S1, +S2. absent: Systolic Murmur - GI/Abdominal Exam GI & Abdominal Exam: soft, Normal Bowel Sounds. + biliary tube draining bilious fluid. absent: Firm, Guarding, Rebound, Rigid. - Extremities Exam Extremities exam: Positive for: pedal edema (2-3+ bilaterally), pedal pulses present. Negative for: calf tenderness - Back Exam Back exam: NORMAL INSPECTION. absent: CVA tenderness (L), CVA tenderness (R) - Neurological Exam Neurological exam: Alert, Oriented x3 - Psychiatric Exam Psychiatric exam: Normal Affect, Normal Mood - Skin Skin Exam: Dry, Normal Color, Warm Assessment and Plan - Assessment and Plan (Free Text) Assessment: 72 year old Georgian male with PMH metastatic cholangiocarcinoma with liver mets , status-post drainage of a subcapsular hematoma, status post conversion to a 14 -gauge internal-external drain into the duodenum on [place] therapy with gemcitabine, hypertension, CAD, presents for fever, worsening abdominal distention, constipation, generalized weakness, found to have massive ascites and bilateral pleural effusions, s/p paracentesis 3L and biliary stent exchange , complicated by right sided hydropneumothorax, s/p thoracentesis 2.1 L richard fluid. Pt currently undergoing bridging therapy to Coumadin for bilateral DVTs: Right sided hydropneumothorax s/p thoracentesis: - thoracentesis 07/27 drained 2.1 L richard fluid, sent for cytology and cell count - saturating well - incentive spirometer - monitor - CXR today Massive ascite s/p paracentesis: - paracentesis 3L drained. No fluid sent for analysis due recent drainage. - received albumin - CT abdomen/pelvis shows massive ascites. probable omental metastasis. Hepatic neoplasm, multifocal. ? subscapular collection inferior right hepatic lobe. PTC catheter. Extensive intrahepatic biliary ductal dilatation. B/l pleural effusion , R>L, compressive atelectasis R>L. - IR consulted. Appreciate recs. S/p paracentesis and biliary stent change tomorrow. - Heme-Onc and GI consulted. F/u recs. - Colace tid, dulcolax daily. Stopped miralax. s/p Mag citrate - Cefepime Hypokalemia: - resolved - monitor Hyponatremia: - resolved - will monitor History of bilateral DVTs: - Lovenox 70 mg sq q12 - bridging with Coumadin, increased to 5 mg daily. - Discussed with Dr Headley regarding starting AC s/p procedure. - NR 1.48 subtherapeuic History of anemia: 2/2 anemia of chronic disease - Hgb stable - Monitor - daily cbc History of CAD: - ASA 81 mg daily Hx of DM: - ISS low Hx of hypothyroidism: - Levothyroxine 100 mcg daily PPX: protonix, Lovenox sq Case seen and examined with Dr Ha. Salud Rowe, PGY1 <Nieves Ha - Last Filed: 07/28/17 13:37> Objective - Vital Signs/Intake and Output Vital Signs (last 24 hours): Temp Pulse Resp BP Pulse Ox 97.7 F 98 H 20 101/70 96 07/28/17 06:00 07/28/17 06:00 07/28/17 06:00 07/28/17 06:00 07/28/17 06:00 Intake and Output: 07/28/17 07/28/17 06:59 18:59 Intake Total 360 Output Total 500 Balance -140 - Medications Medications: Current Medications Al Hydrox/Mg Hydrox/Simethicone (Maalox Plus 30 Ml) 30 ml PO Q4 PRN PRN Reason: INDIGESTION Bisacodyl (Dulcolax) 10 mg RC DAILY [facility] Last Admin: 07/28/17 09:07 Dose: 10 mg Docusate Sodium (Colace) 100 mg PO TID [facility] Last Admin: 07/28/17 13:06 Dose: 100 mg Enoxaparin Sodium (Lovenox) 70 mg SC Q12H [facility] PRN Reason: Protocol Last Admin: 07/28/17 13:05 Dose: 70 mg Cefepime HCl (Maxipime 1gm) 1 gm in 100 mls @ 100 mls/hr IVPB Q8 [facility] PRN Reason: Protocol Last Admin: 07/28/17 06:20 Dose: 100 mls/hr Insulin Human Lispro (Humalog Low) 0 units SC ACHS [facility] PRN Reason: Protocol Last Admin: 07/28/17 11:40 Dose: Not Given Levothyroxine Sodium (Synthroid) 100 mcg PO DAILY [facility] Last Admin: 07/28/17 09:07 Dose: 100 mcg Morphine Sulfate (Morphine) 3 mg IVP Q4H PRN PRN Reason: Pain, severe (8-10) Last Admin: 07/28/17 08:17 Dose: 3 mg Ondansetron HCl (Zofran Inj) 4 mg IVP Q4H PRN PRN Reason: Nausea/Vomiting Last Admin: 07/23/17 20:02 Dose: 4 mg Pantoprazole Sodium (Protonix Ec Tab) 40 mg PO DAILY [facility] Last Admin: 07/28/17 09:07 Dose: 40 mg Warfarin Sodium (Coumadin) 5 mg PO 1800 [facility] PRN Reason: Protocol - Labs Labs: 07/28/17 08:00 07/28/17 08:00 PT 17.1 SECONDS (9.4-12.5) H 07/28/17 08:40 INR 1.48 (0.93-1.08) H 07/28/17 08:40 APTT 28.8 Seconds (25.1-36.5) 07/27/17 08:30 Attending/Attestation - Attestation I have personally seen and examined this patient.: Yes I have fully participated in the care of the patient.: Yes I have reviewed all pertinent clinical information, including history, physical exam and plan: Yes Notes (Text): 07/28/17 13:35 72 year old male with past medical history of metastatic cholangiocarcinoma with liver mets, s/p drainage of subcapsular hematomoa, s/p internal/external drain converstion, on chemotherapy, hypertension, and CAD who presented with abdominal pain and distention. He was found to have ascites and bilateral pleural effusions. He is s/p paracentesis and biliary stent exchange last week. He was then found to have right sided hydropneumothorax s/p thoracocentesis yesterday. Repeat CXR was ordered for today. He is on lovenox and coumadin bridge for history of bilateral DVT. INR is 1.48 today so coumadin dose is increased. He is being followed by GI, surgery and hematology. Nieves Ha MD Hospitalist.
--- NOTE | 2017-07-28 10:44 | RAD ---
HISTORY: follow up COMPARISON: 07/27/2017 FINDINGS: LUNGS: No active pulmonary disease. PLEURA: Large right effusion which has increased. CARDIOVASCULAR: Normal. OSSEOUS STRUCTURES: No significant abnormalities. VISUALIZED UPPER ABDOMEN: Normal. OTHER FINDINGS: None. IMPRESSION: Large right effusion which has increased.
--- NOTE | 2017-07-28 15:12 | CP.PCM.PN ---
Subjective - Date & Time of Evaluation Date of Evaluation: 07/28/17 Time of Evaluation: 14:00 - Subjective Subjective: Infectious Disease Follow Up: July 28, 2017 72 guamanian speaking [place]ian male with a PMHx of cholangiocarcinoma with liver mets, hypertension, diabetes, CAD s/p stents, obstructive jaundice, and intrahepatic ducal dilatation s/p biliary drain placement, presents to the emergency department for several days of constipation, worsening abdominal distension and tenderness specifically on the left quadrants, near syncopal episode, and occasional SOB. Patient was recently admitted to [facility] and discharged 8 days ago. Poor PO intake is becoming the patient's normal as per the son. CT abdomen done on current hospitalization is now showing massive ascites, possible omental metastasis, and multifocal hepatic neoplasm. Patient was seen and examined at bedside. History of lower extremity swelling and tenderness. Patient denies chills, chest pains, nausea, vomiting, diarrhea, dysuria. Cultures negative to date. On Cefepime IV. Temperature as low as 97.7 F today. Afebrile so far today. Had prolonged discussion with the patient's son in room during this hospitalization. Finding of possible Omental metastasis on multiple imaging studies. The patient has biliary drain in place. Patient does not have a chest tube. Surgery was not going to place one at this time. The patient had thoracentesis performed. Objective - Vital Signs/Intake and Output Vital Signs (last 24 hours): Temp Pulse Resp BP Pulse Ox 97.7 F 98 H 20 101/70 96 07/28/17 06:00 07/28/17 06:00 07/28/17 06:00 07/28/17 06:00 07/28/17 06:00 Intake and Output: 07/28/17 07/28/17 06:59 18:59 Intake Total 360 Output Total 500 Balance -140 - Medications Medications: Current Medications Al Hydrox/Mg Hydrox/Simethicone (Maalox Plus 30 Ml) 30 ml PO Q4 PRN PRN Reason: INDIGESTION Bisacodyl (Dulcolax) 10 mg RC DAILY [facility] Last Admin: 07/28/17 09:07 Dose: 10 mg Docusate Sodium (Colace) 100 mg PO TID [facility] Last Admin: 07/28/17 13:06 Dose: 100 mg Enoxaparin Sodium (Lovenox) 70 mg SC Q12H [facility] PRN Reason: Protocol Last Admin: 07/28/17 13:05 Dose: 70 mg Cefepime HCl (Maxipime 1gm) 1 gm in 100 mls @ 100 mls/hr IVPB Q8 [facility] PRN Reason: Protocol Last Admin: 07/28/17 06:20 Dose: 100 mls/hr Insulin Human Lispro (Humalog Low) 0 units SC ACHS [facility] PRN Reason: Protocol Last Admin: 07/28/17 11:40 Dose: Not Given Levothyroxine Sodium (Synthroid) 100 mcg PO DAILY [facility] Last Admin: 07/28/17 09:07 Dose: 100 mcg Morphine Sulfate (Morphine) 3 mg IVP Q4H PRN PRN Reason: Pain, severe (8-10) Last Admin: 07/28/17 08:17 Dose: 3 mg Ondansetron HCl (Zofran Inj) 4 mg IVP Q4H PRN PRN Reason: Nausea/Vomiting Last Admin: 07/23/17 20:02 Dose: 4 mg Pantoprazole Sodium (Protonix Ec Tab) 40 mg PO DAILY [facility] Last Admin: 07/28/17 09:07 Dose: 40 mg Warfarin Sodium (Coumadin) 5 mg PO 1800 [facility] PRN Reason: Protocol - Labs Labs: 07/28/17 08:00 07/28/17 08:00 PT 17.1 SECONDS (9.4-12.5) H 07/28/17 08:40 INR 1.48 (0.93-1.08) H 07/28/17 08:40 APTT 28.8 Seconds (25.1-36.5) 07/27/17 08:30 - Constitutional Appears: Non-toxic, No Acute Distress, Chronically Ill - Head Exam Head Exam: ATRAUMATIC, NORMOCEPHALIC - Eye Exam Eye Exam: EOMI, PERRL Pupil Exam: NORMAL ACCOMODATION, PERRL - ENT Exam ENT Exam: Mucous Membranes Moist, Normal External Ear Exam, TM's Normal Bilaterally - Neck Exam Neck Exam: Full ROM, Normal Inspection - Respiratory Exam Respiratory Exam: Decreased Breath Sounds, NORMAL BREATHING PATTERN. absent: Rales, Rhonchi, Wheezes Additional comments: bibasilar crackles. - Cardiovascular Exam Cardiovascular Exam: REGULAR RHYTHM, RRR, +S1, +S2 - GI/Abdominal Exam GI & Abdominal Exam: Distended, Soft, Normal Bowel Sounds. absent: Tenderness Additional comments: ascites - Extremities Exam Additional comments: general weakness and moderate lower body edema. - Neurological Exam Neurological Exam: Alert, Awake, CN II-XII Intact, Oriented x3 - Psychiatric Exam Psychiatric exam: Normal Affect, Normal Mood - Skin Skin Exam: Intact, Normal Color Additional comments: mild jaundice. Assessment and Plan - Assessment and Plan (Free Text) Assessment: 72 yo [place]ian male with significant abdominal distension, SOB, difficulty ambulating, and near syncopal episodes. CT of abdomen showing possible omental metastasis. Rapid accumulation of ascitic fluid given paracentesis and thoracentesis. Given CT scan of the abdomen, it appears the patient's cholangiocarcinoma is worsening with increased metastasis. Fevers could be secondary to malignancy. There are small bilateral pleural effusions bilaterally. Zosyn given for a potential pneumonia. The patient does not have leukocytosis. Could check procalcitonin and if significantly elevated, case for pneumonia can be made. Procalcitonin value was 0.96. Continue on Cefepime IV. Very poor overall prognosis... especially with possible omental metastasis. I expressed this to the patient and his son regarding the poor prognosis. Patient at this time remains a full Code status. Noted Heme/Onc notes. Case discussed with Dr. Morales. Case discussed in detail with patient's son. Thank you for allowing me to participate in the care of the patient, we will follow with you.
[2017-07-29] MEDS: Morphine 4 mg/ml ISec IVP PRN ×3 (01:14→17:14)
[2017-07-29] MEDS: Enoxaparin 80 mg Syringe SC SCH ×2 (02:27→13:44)
[2017-07-29] MEDS: Cefepime 1gm in NS 100ml 1 GM/100 ML BAG IVPB SCH ×3 (05:52→21:47)
[2017-07-29 06:50] LABS: BASO # 0.02 K/mm3 (0.0-2.0); BASO % 0.3 % (0.0-3.0); EOS # 0.2 (0.0-0.7); EOS % 3.8 % (1.5-5.0); GRAN # 4.15 (1.4-6.5); GRAN % 65.5 % (50.0-68.0); HEMOGLOBIN 8.6 g/dL (14.0-18.0); LYMPH # 1.1 (1.2-3.4); LYMPH % 17.4 % (22.0-35.0); MEAN CELL VOLUME 90.9 fl (80.0-105.0); MEAN PLATELET VOLUME 9.9 fl (7.0-11.0); MONO # 0.8 (0.1-0.6); RBC 2.87 10^6/uL (3.5-6.1); RED CELL DISTRIBUTION WIDTH 18.3 % (11.5-14.5); WHITE BLOOD COUNT 6.3 10^3/ul (4.5-11.0)
[2017-07-29 06:54] LABS: INR 1.2 (0.93-1.08); PROTHROMBIN TIME 13.9 SECONDS (9.4-12.5)
[2017-07-29 07:14] LABS: ALB/GLOB RATIO 0.8 (1.1-1.8); ALBUMIN 2.4 g/dL (3.0-4.8); ALT/SGPT 38 U/L (7-56); AST/SGOT 27 U/L (17-59); BLOOD UREA NITROGEN 18 mg/dL (7-21); GFR AFRICAN-AMERICAN > 60; GFR NON-AFRICAN AMERICAN > 60
[2017-07-29] MEDS: Insulin Lispro (humaLOG) LOW Coverage SC SCH ×4 (08:09→21:47)
[2017-07-29] MEDS: Levothyroxine 100 MCG TAB PO SCH (09:39)
[2017-07-29] MEDS: Pantoprazole 40 mg EC Tab PO SCH (09:40)
--- NOTE | 2017-07-29 14:36 | CP.PCM.PN ---
Addendum entered and electronically signed by Salud Rowe DO 07/29/17 14:50: Upon discharge, patient will follow up with [facility] ( for PMD), Dr Headley, and Dr Guerra. Original Note: <Salud Rowe - Last Filed: 07/29/17 14:33> Subjective - Date & Time of Evaluation Date of Evaluation: 07/29/17 Time of Evaluation: 11:00 - Subjective Subjective: Salud Rowe, PGY1, Medicine Progress Note for Dr Ha: Patient seen and examined at bedside. Pt reports 1 soft BM overnight. No acute events overnight. Pt walked with physical therapy yesterday, ambulating well, on steps as well. Denies sob, respiratory distress, tachypnea, confusion, fever , chills, nausea, vomiting, abdominal pain, bleeding. Objective - Vital Signs/Intake and Output Vital Signs (last 24 hours): Temp Pulse Resp BP Pulse Ox 98 F 86 20 111/70 98 07/29/17 08:24 07/29/17 08:24 07/29/17 08:24 07/29/17 08:24 07/29/17 08:24 Intake and Output: 07/29/17 07/29/17 06:59 18:59 Intake Total 240 840 Output Total 305 Balance 240 535 - Medications Medications: Current Medications Al Hydrox/Mg Hydrox/Simethicone (Maalox Plus 30 Ml) 30 ml PO Q4 PRN PRN Reason: INDIGESTION Bisacodyl (Dulcolax) 10 mg RC DAILY [facility] Last Admin: 07/29/17 09:40 Dose: 10 mg Docusate Sodium (Colace) 100 mg PO TID [facility] Last Admin: 07/29/17 13:27 Dose: 100 mg Enoxaparin Sodium (Lovenox) 70 mg SC Q12H [facility] PRN Reason: Protocol Last Admin: 07/29/17 13:44 Dose: 70 mg Cefepime HCl (Maxipime 1gm) 1 gm in 100 mls @ 100 mls/hr IVPB Q8 [facility] PRN Reason: Protocol Last Admin: 07/29/17 13:27 Dose: 100 mls/hr Insulin Human Lispro (Humalog Low) 0 units SC ACHS [facility] PRN Reason: Protocol Last Admin: 07/29/17 11:39 Dose: Not Given Levothyroxine Sodium (Synthroid) 100 mcg PO DAILY [facility] Last Admin: 07/29/17 09:39 Dose: 100 mcg Morphine Sulfate (Morphine) 3 mg IVP Q4H PRN PRN Reason: Pain, severe (8-10) Last Admin: 07/29/17 12:22 Dose: 3 mg Ondansetron HCl (Zofran Inj) 4 mg IVP Q4H PRN PRN Reason: Nausea/Vomiting Last Admin: 07/23/17 20:02 Dose: 4 mg Pantoprazole Sodium (Protonix Ec Tab) 40 mg PO DAILY [facility] Last Admin: 07/29/17 09:40 Dose: 40 mg Warfarin Sodium (Coumadin) 7 mg PO 1800 [facility] PRN Reason: Protocol - Labs Labs: 07/29/17 05:30 07/29/17 05:00 PT 13.9 SECONDS (9.4-12.5) H 07/29/17 05:30 INR 1.20 (0.93-1.08) H 07/29/17 05:30 APTT 28.8 Seconds (25.1-36.5) 07/27/17 08:30 - Additional Findings Additional findings: - Constitutional Appears: No Acute Distress, Chronically Ill - Head Exam Head Exam: ATRAUMATIC, NORMOCEPHALIC - Eye Exam Eye Exam: EOMI, PERRL. absent: Conjunctival injection, Scleral icterus Pupil Exam: NORMAL ACCOMODATION, PERRL. absent: Fixed, Irregular, Miosis, Unequal - ENT Exam ENT Exam: Mucous Membranes Moist - Neck Exam Neck exam: Positive for: Full Rom - Respiratory Exam Respiratory Exam: Decreased Breath Sounds. Dullness to percussion on RLL and RML. right sided thoracentesis dressing in place, c/d/i. absent: Chest Wall Tenderness, Wheezes, Respiratory Distress, Stridor - Cardiovascular Exam Cardiovascular Exam: +S1, +S2. absent: Systolic Murmur - GI/Abdominal Exam GI & Abdominal Exam: soft, Normal Bowel Sounds. + biliary tube draining bilious fluid. absent: Firm, Guarding, Rebound, Rigid. - Extremities Exam Extremities exam: Positive for: pedal edema (2-3+ bilaterally), pedal pulses present. Negative for: calf tenderness - Back Exam Back exam: NORMAL INSPECTION. absent: CVA tenderness (L), CVA tenderness (R) - Neurological Exam Neurological exam: Alert, Oriented x3 - Psychiatric Exam Psychiatric exam: Normal Affect, Normal Mood - Skin Skin Exam: Dry, Normal Color, Warm Assessment and Plan - Assessment and Plan (Free Text) Assessment: 72 year old [place] male with PMH metastatic cholangiocarcinoma with liver mets , status-post drainage of a subcapsular hematoma, status post conversion to a 14 -gauge internal-external drain into the duodenum on [place] therapy with gemcitabine, hypertension, CAD, presents for fever, worsening abdominal distention, constipation, generalized weakness, found to have massive ascites and bilateral pleural effusions, s/p paracentesis 3L and biliary stent exchange , complicated by right sided hydropneumothorax, s/p thoracentesis 2.1 L richard fluid. Pt currently undergoing bridging therapy to Coumadin for bilateral DVTs: Right sided hydropneumothorax s/p thoracentesis: - thoracentesis 07/27 drained 2.1 L richard fluid, sent for cytology and cell count - saturating well - incentive spirometer - CXR 07/28 s/p paracentesis shows return of right sided pleural effusion. - Discussed with IR regarding the return of pleural effusion s/p thoracentesis, recommends getting Cardiothoracic surgery consult. - Dr Cruz (CT surgery) consulted for possible pleural cath placement, f/u recs. - monitor Massive ascite s/p paracentesis: - paracentesis 3L drained. No fluid sent for analysis due recent drainage. - received albumin - CT abdomen/pelvis shows massive ascites. probable omental metastasis. Hepatic neoplasm, multifocal. ? subscapular collection inferior right hepatic lobe. PTC catheter. Extensive intrahepatic biliary ductal dilatation. B/l pleural effusion , R>L, compressive atelectasis R>L. - IR consulted. Appreciate recs. S/p paracentesis and biliary stent change tomorrow. - Heme-Onc and GI consulted. F/u recs. - Colace tid, dulcolax daily. Stopped miralax. s/p Mag citrate on admission - Cefepime Hypokalemia: - resolved - monitor Hyponatremia: - resolved - will monitor History of bilateral DVTs: - Lovenox 70 mg sq q12 - bridging with Coumadin, increased to 7 mg daily. - Discussed with Dr Headley regarding starting AC s/p procedure. - INR 1.20 subtherapeuic History of anemia: 2/2 anemia of chronic disease - Hgb stable - Monitor - daily cbc History of CAD: - ASA 81 mg daily Hx of DM: - ISS low Hx of hypothyroidism: - Levothyroxine 100 mcg daily PPX: protonix, Lovenox sq Case seen and examined with Dr Ha. Salud Rowe, PGY1 <Nieves Ha - Last Filed: 07/29/17 16:13> Objective - Vital Signs/Intake and Output Vital Signs (last 24 hours): Temp Pulse Resp BP Pulse Ox 98 F 86 20 111/70 98 07/29/17 08:24 07/29/17 08:24 07/29/17 08:24 07/29/17 08:24 07/29/17 08:24 Intake and Output: 07/29/17 07/29/17 06:59 18:59 Intake Total 240 840 Output Total 305 Balance 240 535 - Medications Medications: Current Medications Al Hydrox/Mg Hydrox/Simethicone (Maalox Plus 30 Ml) 30 ml PO Q4 PRN PRN Reason: INDIGESTION Bisacodyl (Dulcolax) 10 mg RC DAILY [facility] Last Admin: 07/29/17 09:40 Dose: 10 mg Docusate Sodium (Colace) 100 mg PO TID [facility] Last Admin: 07/29/17 13:27 Dose: 100 mg Enoxaparin Sodium (Lovenox) 70 mg SC Q12H [facility] PRN Reason: Protocol Last Admin: 07/29/17 13:44 Dose: 70 mg Cefepime HCl (Maxipime 1gm) 1 gm in 100 mls @ 100 mls/hr IVPB Q8 [facility] PRN Reason: Protocol Last Admin: 07/29/17 13:27 Dose: 100 mls/hr Insulin Human Lispro (Humalog Low) 0 units SC ACHS [facility] PRN Reason: Protocol Last Admin: 07/29/17 11:39 Dose: Not Given Levothyroxine Sodium (Synthroid) 100 mcg PO DAILY [facility] Last Admin: 07/29/17 09:39 Dose: 100 mcg Morphine Sulfate (Morphine) 3 mg IVP Q4H PRN PRN Reason: Pain, severe (8-10) Last Admin: 07/29/17 12:22 Dose: 3 mg Ondansetron HCl (Zofran Inj) 4 mg IVP Q4H PRN PRN Reason: Nausea/Vomiting Last Admin: 07/23/17 20:02 Dose: 4 mg Pantoprazole Sodium (Protonix Ec Tab) 40 mg PO DAILY [facility] Last Admin: 07/29/17 09:40 Dose: 40 mg Warfarin Sodium (Coumadin) 7 mg PO 1800 [facility] PRN Reason: Protocol - Labs Labs: 07/29/17 05:30 07/29/17 05:00 PT 13.9 SECONDS (9.4-12.5) H 07/29/17 05:30 INR 1.20 (0.93-1.08) H 07/29/17 05:30 APTT 28.8 Seconds (25.1-36.5) 07/27/17 08:30 Attending/Attestation - Attestation I have personally seen and examined this patient.: Yes I have fully participated in the care of the patient.: Yes I have reviewed all pertinent clinical information, including history, physical exam and plan: Yes Notes (Text): 07/29/17 16:11 72 year old male with past medical history of metastatic cholangiocarcinoma with liver mets, s/p drainage of subcapsular hematomoa, s/p internal/external drain converstion, on chemotherapy, hypertension, and CAD who presented with abdominal pain and distention. He was found to have ascites and bilateral pleural effusions. He is s/p paracentesis and biliary stent exchange last week. He was then found to have right sided hydropneumothorax s/p thoracocentesis earlier this week. Repeat CXR still showed large right pleural effusion. Case was discussed with Dr. Guerra who recommended conservative management as he is asymptomatic at this time. CT surgery input was appreciated as well. He is on lovenox and coumadin bridge for history of bilateral DVT. INR is 1.20 today so coumadin dose is increased. He is being followed by GI, surgery and hematology. Nieves Ha MD Hospitalist.
--- NOTE | 2017-07-29 14:57 | CP.PCM.CON ---
History of Present Illness - History of Present Illness History of Present Illness: Cardiothoracic surgery consult for Dr. Cruz Consulted for: right pleural effusion Patient is a 72M with PMH of cholangiocarcinoma with liver mets and chronic ascites, chronic pleural effusions s/p thoracentesis one month ago and a Percutaneous Transhepatic biliary drain placed one month ago by IR. Patient returned to the ER on 07/23 for generalized weakness and worsened abdominal distention, and was found to have worsened ascites on the CT of the chest, abdomen and pelvis. Patient also had BL pleural effusions noted on CT. Patient underwent an exchange of the percutaneous transheptic biliary drainage catheter and paracentesis draining 3L of yellow fluid on 07/24 and underwent a liver CT afterwards on which a hydropneumothorax of the right chest was noted and confirmed by chest CT. Patient was asymptomatic at that time, with no respiratory distress, chest pain, or hypoxia. Patient was managed conservatively and the pneumothorax resolved spontaneously. Patient underwent an thoracentesis by IR on 07/27 and 2 L of clear yellow fluid were drained. Patient had recurrent pleural effusion noted on CXR today and cardiothoracic surgery consult was called. Patient denies any chest pain or SOB, though he states he has a productive, non- bloody cough and that it is difficult to take deep breath. Patient denies any fevers, chills, or any other symptoms PMH: hilar cholangioca w/liver mets, HTN, DM, CAD s/p stents, obstructive jaundice, DM?, B/L DVTs on Warfarin PSHx: TURP, thyroidectomy, perc biliary stent, PCI, PTC w/placement of internal/ external biliary drainage cath, multiple thoracenteses and paracentesis All: NKDA Social: long history of tobacco smoking, denies any alcohol or drugs Review of Systems - Review of Systems All systems: reviewed and no additional remarkable complaints except Past Patient History - Infectious Disease Hx of Infectious Diseases: None - Past Medical History & Family History Past Medical History?: Yes Past Family History: Reviewed and not pertinent - Past Social History Smoking Status: Former Smoker Alcohol: None Drugs: Denies Home Situation {Lives}: With Family - CARDIAC Hx Cardiac Disorders: Yes Hx Hypertension: Yes - PULMONARY Hx Respiratory Disorders: No - NEUROLOGICAL Hx Neurological Disorder: No - HEENT Hx HEENT Problems: Yes - RENAL Hx Chronic Kidney Disease: No - ENDOCRINE/METABOLIC Hx Diabetes Mellitus Type 2: Yes ((Pt. reports)) - HEMATOLOGICAL/ONCOLOGICAL Hx Cancer: Yes (mets to liver) - INTEGUMENTARY Hx Dermatological Problems: No - MUSCULOSKELETAL/RHEUMATOLOGICAL Hx Musculoskeletal Disorders: Yes Hx Back Pain: Yes Hx Falls: No - GASTROINTESTINAL Other/Comment: Biliary Drain placed one month ago 05/2017Liver cancer- Chemotherapy - GENITOURINARY/GYNECOLOGICAL Hx Prostate Problems: Yes - PSYCHIATRIC Hx Psychophysiologic Disorder: No Hx Substance Use: No - SURGICAL HISTORY Hx Cardiac Catheterization: Yes Hx Coronary Stent: Yes - ANESTHESIA Hx Anesthesia: Yes Hx Anesthesia Reactions: Yes Hx Malignant Hyperthermia: No Meds Allergies/Adverse Reactions: Allergies Allergy/AdvReac Type Severity Reaction Status Date / Time No Known Allergies Allergy Verified 06/21/17 00:56 - Medications Medications: Current Medications Al Hydrox/Mg Hydrox/Simethicone (Maalox Plus 30 Ml) 30 ml PO Q4 PRN PRN Reason: INDIGESTION Bisacodyl (Dulcolax) 10 mg RC DAILY [facility] Last Admin: 07/29/17 09:40 Dose: 10 mg Docusate Sodium (Colace) 100 mg PO TID [facility] Last Admin: 07/29/17 13:27 Dose: 100 mg Enoxaparin Sodium (Lovenox) 70 mg SC Q12H [facility] PRN Reason: Protocol Last Admin: 07/29/17 13:44 Dose: 70 mg Cefepime HCl (Maxipime 1gm) 1 gm in 100 mls @ 100 mls/hr IVPB Q8 [facility] PRN Reason: Protocol Last Admin: 07/29/17 13:27 Dose: 100 mls/hr Insulin Human Lispro (Humalog Low) 0 units SC ACHS [facility] PRN Reason: Protocol Last Admin: 07/29/17 11:39 Dose: Not Given Levothyroxine Sodium (Synthroid) 100 mcg PO DAILY [facility] Last Admin: 07/29/17 09:39 Dose: 100 mcg Morphine Sulfate (Morphine) 3 mg IVP Q4H PRN PRN Reason: Pain, severe (8-10) Last Admin: 07/29/17 12:22 Dose: 3 mg Ondansetron HCl (Zofran Inj) 4 mg IVP Q4H PRN PRN Reason: Nausea/Vomiting Last Admin: 07/23/17 20:02 Dose: 4 mg Pantoprazole Sodium (Protonix Ec Tab) 40 mg PO DAILY [facility] Last Admin: 07/29/17 09:40 Dose: 40 mg Warfarin Sodium (Coumadin) 7 mg PO 1800 [facility] PRN Reason: Protocol Physical Exam - Constitutional Appears: Well, Non-toxic, No Acute Distress - Head Exam Head Exam: ATRAUMATIC, NORMOCEPHALIC - Eye Exam Eye Exam: Scleral icterus. absent: Conjunctival injection, Periorbital swelling - ENT Exam ENT Exam: Mucous Membranes Moist, Normal Oropharynx - Respiratory Exam Respiratory Exam: Decreased Breath Sounds (all right lung dueñas compared to left), NORMAL BREATHING PATTERN. absent: Accessory Muscle Use, Respiratory Distress - Cardiovascular Exam Cardiovascular Exam: RRR - GI/Abdominal Exam GI & Abdominal Exam: Distended, Soft. absent: Tenderness - Extremities Exam Extremities exam: Negative for: calf tenderness, tenderness - Back Exam Additional comments: prior thoracentesis puncture area with dressing c/d/i, no active drainage or surrounding swelling/erythema percutaneous biliary drain with small amount of dark green fluid output. surrounding dressing saturated with yellow clear fluid - Neurological Exam Neurological exam: Alert, Oriented x3 - Psychiatric Exam Psychiatric exam: Normal Affect, Normal Mood - Skin Skin Exam: Dry, Normal Color, Warm Results - Vital Signs Recent Vital Signs: Last Vital Signs Temp 98 F 07/29/17 08:24 Pulse 86 07/29/17 08:24 Resp 20 07/29/17 08:24 BP 111/70 07/29/17 08:24 Pulse Ox 98 07/29/17 08:24 - Labs Result Diagrams: 07/29/17 05:30 07/29/17 05:00 Labs: Laboratory Results - last 24 hr 07/28/17 07/28/17 07/29/17 16:40 21:57 05:00 WBC RBC Hgb Hct MCV MCH MCHC RDW Plt Count MPV Gran % Lymph % (Auto) [place] % (Auto) Eos % (Auto) Baso % (Auto) Gran # Lymph # (Auto) [place] # (Auto) Eos # (Auto) Baso # (Auto) PT INR Sodium 133 Potassium 4.4 Chloride 100 Carbon Dioxide 27 Anion Gap 10 BUN 18 Creatinine 0.8 Est GFR ( Amer) > 60 Est GFR (Non-Af Amer) > 60 POC Glucose (mg/dL) 123 H 118 H Random Glucose 105 Calcium 8.0 L Total Bilirubin 0.9 AST 27 ALT 38 Alkaline Phosphatase 255 H Total Protein 5.3 L Albumin 2.4 L Globulin 2.9 Albumin/Globulin Ratio 0.8 L 07/29/17 07/29/17 07/29/17 05:30 05:30 07:29 WBC 6.3 D RBC 2.87 L Hgb 8.6 L Hct 26.1 L MCV 90.9 MCH 30.0 MCHC 33.0 RDW 18.3 H Plt Count 462 H MPV 9.9 Gran % 65.5 Lymph % (Auto) 17.4 L [place] % (Auto) 13.0 H Eos % (Auto) 3.8 Baso % (Auto) 0.3 Gran # 4.15 Lymph # (Auto) 1.1 L [place] # (Auto) 0.8 H Eos # (Auto) 0.2 Baso # (Auto) 0.02 PT 13.9 H INR 1.20 H Sodium Potassium Chloride Carbon Dioxide Anion Gap BUN Creatinine Est GFR ( Amer) Est GFR (Non-Af Amer) POC Glucose (mg/dL) 125 H Random Glucose Calcium Total Bilirubin AST ALT Alkaline Phosphatase Total Protein Albumin Globulin Albumin/Globulin Ratio 07/29/17 11:24 WBC RBC Hgb Hct MCV MCH MCHC RDW Plt Count MPV Gran % Lymph % (Auto) [place] % (Auto) Eos % (Auto) Baso % (Auto) Gran # Lymph # (Auto) [place] # (Auto) Eos # (Auto) Baso # (Auto) PT INR Sodium Potassium Chloride Carbon Dioxide Anion Gap BUN Creatinine Est GFR ( Amer) Est GFR (Non-Af Amer) POC Glucose (mg/dL) 131 H Random Glucose Calcium Total Bilirubin AST ALT Alkaline Phosphatase Total Protein Albumin Globulin Albumin/Globulin Ratio - Imaging and Cardiology Chest x-ray Status: Image reviewed by me, Report reviewed by me Assessment & Plan - Assessment and Plan (Free Text) Assessment: 72M with recurrent/worsened right pleural effusion, chronic ascites, cholangiocarcinoma with liver mets Patient in no respiratory distress, SPO2 adequate on room air Plan: No cardiothoracic intervention at this time--This is a chronic process due to his ascites. Patient is currently asymptomatic and hemodynamically stable. Any interventions at this time are likely to have more risk of complications compared to potential benefit. Recommend attempting to control ascites through paracenteses and conservative management, such as lasix administration. Continue to monitor the patient clinically for any worsening respiratory symptoms. Please reach out to the surgical team for any further concerns or questions Discussed with Dr. Cruz at length. He agrees with above [place], PGY2
--- NOTE | 2017-07-29 16:18 | CP.PCM.PN ---
Subjective - Date & Time of Evaluation Date of Evaluation: 07/29/17 Time of Evaluation: 16:00 - Subjective Subjective: Infectious Disease Follow Up: July 29, 2017 72 norwegian speaking Palestinian male with a PMHx of cholangiocarcinoma with liver mets, hypertension, diabetes, CAD s/p stents, obstructive jaundice, and intrahepatic ducal dilatation s/p biliary drain placement, presents to the emergency department for several days of constipation, worsening abdominal distension and tenderness specifically on the left quadrants, near syncopal episode, and occasional SOB. Patient was recently admitted to [facility] and discharged 8 days ago. Poor PO intake is becoming the patient's normal as per the son. CT abdomen done on current hospitalization is now showing massive ascites, possible omental metastasis, and multifocal hepatic neoplasm. Patient was seen and examined at bedside. History of lower extremity swelling and tenderness. Patient denies chills, chest pains, nausea, vomiting, diarrhea, dysuria. Cultures negative to date. On Cefepime IV. Temperature as low as 97.4 F today. Afebrile so far today. Had prolonged discussion with the patient's son in room during this hospitalization. Finding of possible Omental metastasis on multiple imaging studies. The patient has biliary drain in place. Patient does not have a chest tube. Surgery was not going to place one at this time. The patient had thoracentesis performed. Objective - Vital Signs/Intake and Output Vital Signs (last 24 hours): Temp Pulse Resp BP Pulse Ox 98 F 86 20 111/70 98 07/29/17 08:24 07/29/17 08:24 07/29/17 08:24 07/29/17 08:24 07/29/17 08:24 Intake and Output: 07/29/17 07/29/17 06:59 18:59 Intake Total 240 840 Output Total 305 Balance 240 535 - Medications Medications: Current Medications Al Hydrox/Mg Hydrox/Simethicone (Maalox Plus 30 Ml) 30 ml PO Q4 PRN PRN Reason: INDIGESTION Bisacodyl (Dulcolax) 10 mg RC DAILY [facility] Last Admin: 07/29/17 09:40 Dose: 10 mg Docusate Sodium (Colace) 100 mg PO TID [facility] Last Admin: 07/29/17 13:27 Dose: 100 mg Enoxaparin Sodium (Lovenox) 70 mg SC Q12H [facility] PRN Reason: Protocol Last Admin: 07/29/17 13:44 Dose: 70 mg Cefepime HCl (Maxipime 1gm) 1 gm in 100 mls @ 100 mls/hr IVPB Q8 [facility] PRN Reason: Protocol Last Admin: 07/29/17 13:27 Dose: 100 mls/hr Insulin Human Lispro (Humalog Low) 0 units SC ACHS [facility] PRN Reason: Protocol Last Admin: 07/29/17 11:39 Dose: Not Given Levothyroxine Sodium (Synthroid) 100 mcg PO DAILY [facility] Last Admin: 07/29/17 09:39 Dose: 100 mcg Morphine Sulfate (Morphine) 3 mg IVP Q4H PRN PRN Reason: Pain, severe (8-10) Last Admin: 07/29/17 12:22 Dose: 3 mg Ondansetron HCl (Zofran Inj) 4 mg IVP Q4H PRN PRN Reason: Nausea/Vomiting Last Admin: 07/23/17 20:02 Dose: 4 mg Pantoprazole Sodium (Protonix Ec Tab) 40 mg PO DAILY [facility] Last Admin: 07/29/17 09:40 Dose: 40 mg Warfarin Sodium (Coumadin) 7 mg PO 1800 [facility] PRN Reason: Protocol - Labs Labs: 07/29/17 05:30 07/29/17 05:00 PT 13.9 SECONDS (9.4-12.5) H 07/29/17 05:30 INR 1.20 (0.93-1.08) H 07/29/17 05:30 APTT 28.8 Seconds (25.1-36.5) 07/27/17 08:30 - Constitutional Appears: Non-toxic, No Acute Distress, Chronically Ill - Head Exam Head Exam: ATRAUMATIC, NORMOCEPHALIC - Eye Exam Eye Exam: EOMI, PERRL Pupil Exam: NORMAL ACCOMODATION, PERRL - ENT Exam ENT Exam: Mucous Membranes Moist, Normal External Ear Exam, TM's Normal Bilaterally - Neck Exam Neck Exam: Full ROM, Normal Inspection - Respiratory Exam Respiratory Exam: Decreased Breath Sounds, NORMAL BREATHING PATTERN. absent: Rales, Rhonchi, Wheezes Additional comments: Bibasilar crackles. - Cardiovascular Exam Cardiovascular Exam: REGULAR RHYTHM, RRR, +S1, +S2 - GI/Abdominal Exam GI & Abdominal Exam: Soft, Normal Bowel Sounds. absent: Tenderness Additional comments: Ascites. - Extremities Exam Additional comments: general weakness and moderate lower body edema. - Neurological Exam Neurological Exam: Alert, Awake, CN II-XII Intact, Oriented x3 - Psychiatric Exam Psychiatric exam: Normal Affect, Normal Mood - Skin Skin Exam: Intact, Normal Color Additional comments: mild jaundice. Assessment and Plan - Assessment and Plan (Free Text) Assessment: 72 yo Palestinian male with significant abdominal distension, SOB, difficulty ambulating, and near syncopal episodes. CT of abdomen showing possible omental metastasis. Rapid accumulation of ascitic fluid given paracentesis and thoracentesis. Given CT scan of the abdomen, it appears the patient's cholangiocarcinoma is worsening with increased metastasis. Fevers could be secondary to malignancy. There are small bilateral pleural effusions bilaterally. Zosyn given for a potential pneumonia. The patient does not have leukocytosis. Could check procalcitonin and if significantly elevated, case for pneumonia can be made. Procalcitonin value was 0.96. Continue on Cefepime IV. Consider 7 days of treatment. Very poor overall prognosis... especially with possible omental metastasis. I expressed this to the patient and his son regarding the poor prognosis. Patient at this time remains a full Code status. Noted Heme/Onc notes. Case discussed with Dr. Morales. Case discussed in detail with patient's son. Thank you for allowing me to participate in the care of the patient, we will follow with you.
[2017-07-30] MEDS: Morphine 4 mg/ml ISec IVP PRN ×2 (00:16→04:31)
[2017-07-30] MEDS: Enoxaparin 80 mg Syringe SC SCH ×2 (05:52→18:11)
[2017-07-30] MEDS: Cefepime 1gm in NS 100ml 1 GM/100 ML BAG IVPB SCH ×2 (05:54→14:10)
[2017-07-30 06:45] LABS: BASO # 0.02 K/mm3 (0.0-2.0); BASO % 0.3 % (0.0-3.0); EOS # 0.2 (0.0-0.7); EOS % 2.1 % (1.5-5.0); GRAN # 5.01 (1.4-6.5); GRAN % 62.7 % (50.0-68.0); HEMOGLOBIN 9.6 g/dL (14.0-18.0); LYMPH # 1.5 (1.2-3.4); LYMPH % 18.4 % (22.0-35.0); MEAN CELL VOLUME 91.8 fl (80.0-105.0); MEAN CORPUSCULAR HEMOGLOBIN 30.3 pg (25.0-35.0); MEAN PLATELET VOLUME 9.9 fl (7.0-11.0); MONO # 1.3 (0.1-0.6); MONO % 16.5 % (1.0-6.0); RBC 3.17 10^6/uL (3.5-6.1); RED CELL DISTRIBUTION WIDTH 18.7 % (11.5-14.5)
[2017-07-30] MEDS: Insulin Lispro (humaLOG) LOW Coverage SC SCH ×4 (07:20→21:05)
[2017-07-30 07:33] LABS: INR 1.29 (0.93-1.08); PROTHROMBIN TIME 14.9 SECONDS (9.4-12.5)
[2017-07-30 07:39] LABS: ALB/GLOB RATIO 0.8 (1.1-1.8); ALBUMIN 2.8 g/dL (3.0-4.8); ALT/SGPT 33 U/L (7-56); AST/SGOT 36 U/L (17-59); BLOOD UREA NITROGEN 18 mg/dL (7-21); GFR AFRICAN-AMERICAN > 60; GFR NON-AFRICAN AMERICAN > 60
--- NOTE | 2017-07-30 09:01 | CP.PCM.PN ---
Subjective - Date & Time of Evaluation Date of Evaluation: 07/30/17 Time of Evaluation: 09:45 - Subjective Subjective: [facility] progress note for Dr. Headley Patient seen and examined sitting up in chair comfortable. Nursing reports no acute events overnight. Patient denied any pain and reported he felt good. Denied acute complaints fever, headache, chest pain, SOB, abd pain, nausea, vomiting, bowel/bladder complaints. Patient's legs continue to be swollen and he has been counseled on the importance of raising them. Objective - Vital Signs/Intake and Output Vital Signs (last 24 hours): Temp Pulse Resp BP Pulse Ox 98.2 F 90 20 112/76 97 07/30/17 07:58 07/30/17 07:58 07/30/17 07:58 07/30/17 07:58 07/30/17 07:58 Intake and Output: 07/30/17 07/30/17 06:59 18:59 Intake Total 900 Output Total 550 Balance 350 - Medications Medications: Current Medications Al Hydrox/Mg Hydrox/Simethicone (Maalox Plus 30 Ml) 30 ml PO Q4 PRN PRN Reason: INDIGESTION Bisacodyl (Dulcolax) 10 mg RC DAILY [facility] Last Admin: 07/29/17 09:40 Dose: 10 mg Docusate Sodium (Colace) 100 mg PO TID [facility] Last Admin: 07/29/17 17:13 Dose: 100 mg Enoxaparin Sodium (Lovenox) 70 mg SC 0600,1800 [facility] PRN Reason: Protocol Last Admin: 07/30/17 05:52 Dose: 70 mg Cefepime HCl (Maxipime 1gm) 1 gm in 100 mls @ 100 mls/hr IVPB Q8 [facility] PRN Reason: Protocol Last Admin: 07/30/17 05:54 Dose: 100 mls/hr Insulin Human Lispro (Humalog Low) 0 units SC ACHS [facility] PRN Reason: Protocol Last Admin: 07/30/17 07:20 Dose: Not Given Levothyroxine Sodium (Synthroid) 100 mcg PO DAILY [facility] Last Admin: 07/29/17 09:39 Dose: 100 mcg Morphine Sulfate (Morphine) 3 mg IVP Q4H PRN PRN Reason: Pain, severe (8-10) Last Admin: 07/30/17 04:31 Dose: 3 mg Ondansetron HCl (Zofran Inj) 4 mg IVP Q4H PRN PRN Reason: Nausea/Vomiting Last Admin: 07/23/17 20:02 Dose: 4 mg Pantoprazole Sodium (Protonix Ec Tab) 40 mg PO DAILY [facility] Last Admin: 07/29/17 09:40 Dose: 40 mg Warfarin Sodium (Coumadin) 7 mg PO 1800 [facility] PRN Reason: Protocol Last Admin: 07/29/17 17:11 Dose: 7 mg - Labs Labs: 07/30/17 06:30 07/30/17 06:30 PT 14.9 SECONDS (9.4-12.5) H 07/30/17 06:30 INR 1.29 (0.93-1.08) H 07/30/17 06:30 APTT 28.8 Seconds (25.1-36.5) 07/27/17 08:30 - Constitutional Appears: No Acute Distress, Chronically Ill - Head Exam Head Exam: ATRAUMATIC, NORMAL INSPECTION, NORMOCEPHALIC - Eye Exam Eye Exam: EOMI, Normal appearance, PERRL. absent: Conjunctival injection, Scleral icterus - ENT Exam ENT Exam: Mucous Membranes Moist - Neck Exam Neck Exam: Full ROM - Respiratory Exam Respiratory Exam: Decreased Breath Sounds (R side), Clear to Ausculation Bilateral, NORMAL BREATHING PATTERN. absent: Accessory Muscle Use, Rales, Rhonchi, Wheezes, Respiratory Distress Additional comments: dressings c/d/i - Cardiovascular Exam Cardiovascular Exam: +S1, +S2 - GI/Abdominal Exam GI & Abdominal Exam: Soft, Normal Bowel Sounds Additional comments: output from biliary drain 50cc - Rectal Exam Rectal Exam: Deferred - Extremities Exam Extremities Exam: Pedal Edema (+3 b/l) - Neurological Exam Neurological Exam: Alert, Awake, Oriented x3 - Psychiatric Exam Psychiatric exam: Normal Affect, Normal Mood - Skin Skin Exam: Dry, Intact Assessment and Plan - Assessment and Plan (Free Text) Assessment: 72yo male 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 Patient was found to have ascites and pleural effusion and had large volume paracentesis with biliary stent exchange after which he was found to have right sided hydropneumothorax. Patient had thoracentesis 07/27 that drained 2.1L serous output- fluid cytology prelim negative- awaiting final report. Patient currently stable satting well on NC 3L and using IS. Patient's pain is well controlled and he has no acute complaints. Pt currently undergoing bridging therapy to Coumadin for bilateral DVTs. Palliative care nurse on board- appreciate reccs. IR and GI on board- appreciate reccs. Continue management as per primary Discussed with Dr. Kayode Rebolledo PGY2
[2017-07-30] MEDS: Pantoprazole 40 mg EC Tab PO SCH (09:41)
[2017-07-30] MEDS: Levothyroxine 100 MCG TAB PO SCH (09:41)
--- NOTE | 2017-07-30 14:56 | CP.PCM.PN ---
<Salud Rowe - Last Filed: 07/30/17 14:52> Subjective - Date & Time of Evaluation Date of Evaluation: 07/30/17 Time of Evaluation: 12:00 - Subjective Subjective: Salud Rowe, PGY1, Medicine Progress Note for Dr Ha: Patient seen and examined at bedside. No acute events overnight. Patient ambulating well to the chair, bathroom. Denies sob, respiratory distress, tachypnea, confusion, fever, chills, nausea, vomiting, abdominal pain, bleeding. Objective - Vital Signs/Intake and Output Vital Signs (last 24 hours): Temp Pulse Resp BP Pulse Ox 98.2 F 90 20 112/76 97 07/30/17 07:58 07/30/17 07:58 07/30/17 07:58 07/30/17 07:58 07/30/17 07:58 Intake and Output: 07/30/17 07/30/17 06:59 18:59 Intake Total 900 Output Total 550 Balance 350 - Medications Medications: Current Medications Al Hydrox/Mg Hydrox/Simethicone (Maalox Plus 30 Ml) 30 ml PO Q4 PRN PRN Reason: INDIGESTION Bisacodyl (Dulcolax) 10 mg RC DAILY [facility] Last Admin: 07/30/17 09:41 Dose: Not Given Docusate Sodium (Colace) 100 mg PO TID [facility] Last Admin: 07/30/17 14:11 Dose: Not Given Enoxaparin Sodium (Lovenox) 70 mg SC 0600,1800 [facility] PRN Reason: Protocol Last Admin: 07/30/17 05:52 Dose: 70 mg Cefepime HCl (Maxipime 1gm) 1 gm in 100 mls @ 100 mls/hr IVPB Q8 [facility] PRN Reason: Protocol Last Admin: 07/30/17 14:10 Dose: 100 mls/hr Insulin Human Lispro (Humalog Low) 0 units SC ACHS [facility] PRN Reason: Protocol Last Admin: 07/30/17 12:38 Dose: 1 unit Levothyroxine Sodium (Synthroid) 100 mcg PO DAILY [facility] Last Admin: 07/30/17 09:41 Dose: 100 mcg Ondansetron HCl (Zofran Inj) 4 mg IVP Q4H PRN PRN Reason: Nausea/Vomiting Last Admin: 07/23/17 20:02 Dose: 4 mg Oxycodone HCl (Oxycodone Immediate Release Tab) 5 mg PO Q6H PRN PRN Reason: Pain, moderate (4-7) Pantoprazole Sodium (Protonix Ec Tab) 40 mg PO DAILY [facility] Last Admin: 07/30/17 09:41 Dose: 40 mg Warfarin Sodium (Coumadin) 10 mg PO 1800 [facility] PRN Reason: Protocol - Labs Labs: 07/30/17 06:30 07/30/17 06:30 PT 14.9 SECONDS (9.4-12.5) H 07/30/17 06:30 INR 1.29 (0.93-1.08) H 07/30/17 06:30 APTT 28.8 Seconds (25.1-36.5) 07/27/17 08:30 - Additional Findings Additional findings: - Constitutional Appears: No Acute Distress, Chronically Ill - Head Exam Head Exam: ATRAUMATIC, NORMOCEPHALIC - Eye Exam Eye Exam: EOMI, PERRL. absent: Conjunctival injection, Scleral icterus Pupil Exam: NORMAL ACCOMODATION, PERRL. absent: Fixed, Irregular, Miosis, Unequal - ENT Exam ENT Exam: Mucous Membranes Moist - Neck Exam Neck exam: Positive for: Full Rom - Respiratory Exam Respiratory Exam: Decreased Breath Sounds. Dullness to percussion on RLL and RML. right sided thoracentesis dressing in place, c/d/i. absent: Chest Wall Tenderness, Wheezes, Respiratory Distress, Stridor - Cardiovascular Exam Cardiovascular Exam: +S1, +S2. absent: Systolic Murmur - GI/Abdominal Exam GI & Abdominal Exam: soft, Normal Bowel Sounds. + biliary tube draining bilious fluid. absent: Firm, Guarding, Rebound, Rigid. - Extremities Exam Extremities exam: Positive for: pedal edema (2-3+ bilaterally), pedal pulses present. Negative for: calf tenderness - Back Exam Back exam: NORMAL INSPECTION. absent: CVA tenderness (L), CVA tenderness (R) - Neurological Exam Neurological exam: Alert, Oriented x3 - Psychiatric Exam Psychiatric exam: Normal Affect, Normal Mood - Skin Skin Exam: Dry, Normal Color, Warm Assessment and Plan - Assessment and Plan (Free Text) Assessment: 72 year old Iranian male with PMH metastatic cholangiocarcinoma with liver mets , status-post drainage of a subcapsular hematoma, status post conversion to a 14 -gauge internal-external drain into the duodenum on [place] therapy with gemcitabine, hypertension, CAD, presents for fever, worsening abdominal distention, constipation, generalized weakness, found to have massive ascites and bilateral pleural effusions, s/p paracentesis 3L and biliary stent exchange , complicated by right sided hydropneumothorax, s/p thoracentesis 2.1 L richard fluid. Pt currently undergoing bridging therapy to Coumadin for bilateral DVTs: Right sided hydropneumothorax s/p thoracentesis: - thoracentesis 07/27 drained 2.1 L richard fluid - saturating well - incentive spirometer - CXR 07/28 s/p paracentesis shows return of right sided pleural effusion. - Discussed with IR and Cardiothoracic surgery regarding possibility of pleural catheter. No intervention currently as patient is stable, in no respiratory distress. Massive ascites s/p paracentesis: - paracentesis 3L drained. No fluid sent for analysis due to recent drainage. - received albumin s/p procedure - Admission CT abdomen/pelvis shows massive ascites. probable omental metastasis. Hepatic neoplasm, multifocal. ? subscapular collection inferior right hepatic lobe. PTC catheter. Extensive intrahepatic biliary ductal dilatation. B/l pleural effusion, R>L, compressive atelectasis R>L. - IR consulted. Appreciate recs. S/p paracentesis and biliary stent change. - Heme-Onc and GI consulted. appreciate recs. - Colace tid, dulcolax daily. s/p Mag citrate on admission - Cefepime - will discuss with ID regarding discontinuing cefepime Hypokalemia: - resolved - monitor Hyponatremia: - resolved - will monitor History of bilateral DVTs: - Lovenox 70 mg sq q12 - bridging with Coumadin, increased to 10 mg today. - Discussed with Dr Headley regarding starting AC s/p procedure. - INR 1.29 subtherapeuic History of anemia: 2/2 anemia of chronic disease - Hgb stable - Monitor - daily cbc History of CAD: - ASA 81 mg daily Hx of DM: - ISS low Hx of hypothyroidism: - Levothyroxine 100 mcg daily PPX: protonix, Lovenox sq Upon discharge, patient will follow up with [facility] ( for PMD), Dr Headley, and Dr Guerra. Case seen and examined with Dr Ha. Salud Rowe, PGY1 <Nieves Ha - Last Filed: 07/30/17 16:22> Objective - Vital Signs/Intake and Output Vital Signs (last 24 hours): Temp Pulse Resp BP Pulse Ox 98.2 F 90 20 112/76 97 07/30/17 07:58 07/30/17 07:58 07/30/17 07:58 07/30/17 07:58 07/30/17 07:58 Intake and Output: 07/30/17 07/30/17 06:59 18:59 Intake Total 900 600 Output Total 550 Balance 350 600 - Medications Medications: Current Medications Al Hydrox/Mg Hydrox/Simethicone (Maalox Plus 30 Ml) 30 ml PO Q4 PRN PRN Reason: INDIGESTION Bisacodyl (Dulcolax) 10 mg RC DAILY [facility] Last Admin: 07/30/17 09:41 Dose: Not Given Docusate Sodium (Colace) 100 mg PO TID [facility] Last Admin: 07/30/17 14:11 Dose: Not Given Enoxaparin Sodium (Lovenox) 70 mg SC 0600,1800 [facility] PRN Reason: Protocol Last Admin: 07/30/17 05:52 Dose: 70 mg Insulin Human Lispro (Humalog Low) 0 units SC ACHS [facility] PRN Reason: Protocol Last Admin: 07/30/17 12:38 Dose: 1 unit Levothyroxine Sodium (Synthroid) 100 mcg PO DAILY [facility] Last Admin: 07/30/17 09:41 Dose: 100 mcg Ondansetron HCl (Zofran Inj) 4 mg IVP Q4H PRN PRN Reason: Nausea/Vomiting Last Admin: 07/23/17 20:02 Dose: 4 mg Oxycodone HCl (Oxycodone Immediate Release Tab) 5 mg PO Q6H PRN PRN Reason: Pain, moderate (4-7) Last Admin: 07/30/17 15:03 Dose: 5 mg Pantoprazole Sodium (Protonix Ec Tab) 40 mg PO DAILY [facility] Last Admin: 07/30/17 09:41 Dose: 40 mg Warfarin Sodium (Coumadin) 10 mg PO 1800 [facility] PRN Reason: Protocol - Labs Labs: 07/30/17 06:30 07/30/17 06:30 PT 14.9 SECONDS (9.4-12.5) H 07/30/17 06:30 INR 1.29 (0.93-1.08) H 07/30/17 06:30 APTT 28.8 Seconds (25.1-36.5) 07/27/17 08:30 Attending/Attestation - Attestation I have personally seen and examined this patient.: Yes I have fully participated in the care of the patient.: Yes I have reviewed all pertinent clinical information, including history, physical exam and plan: Yes Notes (Text): 07/30/17 16:19 72 year old male with past medical history of metastatic cholangiocarcinoma with liver mets, s/p drainage of subcapsular hematomoa, s/p internal/external drain converstion, on chemotherapy, hypertension, and CAD who presented with abdominal pain and distention. He was found to have ascites and bilateral pleural effusions. He is s/p paracentesis and biliary stent exchange last week. He was then found to have right sided hydropneumothorax s/p thoracocentesis earlier this. Repeat CXR shows large pleural effusion. IR and cardiothoracic surgery input was appreciated; no acute surgical intervention planned as patient is comfortable without respiratory distress. He is on lovenox and coumadin bridge for history of bilateral DVT. INR is still subtherapeutic today so coumadin dose is increased for tonight. D/c planning once INR is therapeutic. Nieves Ha MD Hospitalist.
[2017-07-30] MEDS: oxyCODONE 5 mg Immediate Release Tab PO PRN ×2 (15:03→21:03)
--- NOTE | 2017-07-30 16:40 | CP.PCM.PN ---
Subjective - Date & Time of Evaluation Date of Evaluation: 07/30/17 Time of Evaluation: 15:30 - Subjective Subjective: Infectious Disease Follow Up: July 30, 2017 72 nicaraguan speaking Samoan male with a PMHx of cholangiocarcinoma with liver mets, hypertension, diabetes, CAD s/p stents, obstructive jaundice, and intrahepatic ducal dilatation s/p biliary drain placement, presents to the emergency department for several days of constipation, worsening abdominal distension and tenderness specifically on the left quadrants, near syncopal episode, and occasional SOB. Patient was recently admitted to [facility] and discharged 8 days ago. Poor PO intake is becoming the patient's normal as per the son. CT abdomen done on current hospitalization is now showing massive ascites, possible omental metastasis, and multifocal hepatic neoplasm. Patient was seen and examined at bedside. History of lower extremity swelling and tenderness. Patient denies chills, chest pains, nausea, vomiting, diarrhea, dysuria. Cultures negative to date. On Cefepime IV. Temperature around 98.4 F today. Afebrile so far today. Had prolonged discussion with the patient's son in room during this hospitalization. Finding of possible Omental metastasis on multiple imaging studies. The patient has biliary drain in place. Patient does not have a chest tube. Surgery was not going to place one at this time. The patient had thoracentesis performed. Completing Cefepime treatment. Objective - Vital Signs/Intake and Output Vital Signs (last 24 hours): Temp Pulse Resp BP Pulse Ox 98.2 F 90 20 112/76 97 07/30/17 07:58 07/30/17 07:58 07/30/17 07:58 07/30/17 07:58 07/30/17 07:58 Intake and Output: 07/30/17 07/30/17 06:59 18:59 Intake Total 900 600 Output Total 550 Balance 350 600 - Medications Medications: Current Medications Al Hydrox/Mg Hydrox/Simethicone (Maalox Plus 30 Ml) 30 ml PO Q4 PRN PRN Reason: INDIGESTION Bisacodyl (Dulcolax) 10 mg RC DAILY [facility] Last Admin: 07/30/17 09:41 Dose: Not Given Docusate Sodium (Colace) 100 mg PO TID [facility] Last Admin: 07/30/17 14:11 Dose: Not Given Enoxaparin Sodium (Lovenox) 70 mg SC 0600,1800 [facility] PRN Reason: Protocol Last Admin: 07/30/17 05:52 Dose: 70 mg Insulin Human Lispro (Humalog Low) 0 units SC ACHS [facility] PRN Reason: Protocol Last Admin: 07/30/17 12:38 Dose: 1 unit Levothyroxine Sodium (Synthroid) 100 mcg PO DAILY [facility] Last Admin: 07/30/17 09:41 Dose: 100 mcg Ondansetron HCl (Zofran Inj) 4 mg IVP Q4H PRN PRN Reason: Nausea/Vomiting Last Admin: 07/23/17 20:02 Dose: 4 mg Oxycodone HCl (Oxycodone Immediate Release Tab) 5 mg PO Q6H PRN PRN Reason: Pain, moderate (4-7) Last Admin: 07/30/17 15:03 Dose: 5 mg Pantoprazole Sodium (Protonix Ec Tab) 40 mg PO DAILY [facility] Last Admin: 07/30/17 09:41 Dose: 40 mg Warfarin Sodium (Coumadin) 10 mg PO 1800 [facility] PRN Reason: Protocol - Labs Labs: 07/30/17 06:30 07/30/17 06:30 PT 14.9 SECONDS (9.4-12.5) H 07/30/17 06:30 INR 1.29 (0.93-1.08) H 07/30/17 06:30 APTT 28.8 Seconds (25.1-36.5) 07/27/17 08:30 - Constitutional Appears: Non-toxic, No Acute Distress, Chronically Ill - Head Exam Head Exam: ATRAUMATIC, NORMOCEPHALIC - Eye Exam Eye Exam: EOMI, PERRL Pupil Exam: NORMAL ACCOMODATION, PERRL - ENT Exam ENT Exam: Mucous Membranes Moist, Normal External Ear Exam, TM's Normal Bilaterally - Neck Exam Neck Exam: Full ROM, Normal Inspection - Respiratory Exam Respiratory Exam: Decreased Breath Sounds, NORMAL BREATHING PATTERN. absent: Rales, Rhonchi, Wheezes - Cardiovascular Exam Cardiovascular Exam: REGULAR RHYTHM, RRR, +S1, +S2 - GI/Abdominal Exam GI & Abdominal Exam: Distended, Soft, Normal Bowel Sounds. absent: Tenderness Additional comments: Ascites - Extremities Exam Additional comments: general weakness and moderate lower body edema. - Neurological Exam Neurological Exam: Alert, Awake, CN II-XII Intact, Oriented x3 - Psychiatric Exam Psychiatric exam: Normal Affect, Normal Mood - Skin Skin Exam: Intact, Normal Color Additional comments: mild jaundice Assessment and Plan - Assessment and Plan (Free Text) Assessment: 72 yo Samoan male with significant abdominal distension, SOB, difficulty ambulating, and near syncopal episodes. CT of abdomen showing possible omental metastasis. Rapid accumulation of ascitic fluid given paracentesis and thoracentesis. Given CT scan of the abdomen, it appears the patient's cholangiocarcinoma is worsening with increased metastasis. Fevers could be secondary to malignancy. There are small bilateral pleural effusions bilaterally. Zosyn given for a potential pneumonia. The patient does not have leukocytosis. Could check procalcitonin and if significantly elevated, case for pneumonia can be made. Procalcitonin value was 0.96. Continue on Cefepime IV. Consider 7 days of treatment. Very poor overall prognosis... especially with possible omental metastasis. I expressed this to the patient and his son regarding the poor prognosis. Patient at this time remains a full Code status. Noted Heme/Onc notes. Case discussed with Dr. Ha Case discussed in detail with patient's son. Cefepime doses completed. Thank you for allowing me to participate in the care of the patient, we will follow with you.
[2017-07-31] MEDS: Enoxaparin 80 mg Syringe SC SCH (05:36)
[2017-07-31] MEDS: oxyCODONE 5 mg Immediate Release Tab PO PRN ×2 (05:44→12:22)
[2017-07-31 06:22] LABS: BASO # 0.02 K/mm3 (0.0-2.0); BASO % 0.3 % (0.0-3.0); EOS # 0.1 (0.0-0.7); EOS % 2.1 % (1.5-5.0); GRAN # 4.19 (1.4-6.5); HEMOGLOBIN 9.5 g/dL (14.0-18.0); LYMPH # 1.2 (1.2-3.4); LYMPH % 17.5 % (22.0-35.0); MEAN CELL VOLUME 92.1 fl (80.0-105.0); MEAN CORPUSCULAR HGB CONC 32.5 g/dl (31.0-37.0); MONO # 1.2 (0.1-0.6); MONO % 18.1 % (1.0-6.0); RBC 3.17 10^6/uL (3.5-6.1); RED CELL DISTRIBUTION WIDTH 18.9 % (11.5-14.5); WHITE BLOOD COUNT 6.8 10^3/ul (4.5-11.0)
[2017-07-31 06:42] LABS: ALB/GLOB RATIO 0.7 (1.1-1.8); ALBUMIN 2.7 g/dL (3.0-4.8); ALT/SGPT 33 U/L (7-56); AST/SGOT 32 U/L (17-59); BLOOD UREA NITROGEN 18 mg/dL (7-21); CALCIUM 8.2 mg/dL (8.4-10.5); GFR AFRICAN-AMERICAN > 60; GFR NON-AFRICAN AMERICAN > 60
[2017-07-31 07:06] LABS: INR 1.74 (0.93-1.08); PROTHROMBIN TIME 20.2 SECONDS (9.4-12.5)
[2017-07-31] MEDS: Insulin Lispro (humaLOG) LOW Coverage SC SCH ×2 (07:37→11:36)
--- NOTE | 2017-07-31 08:15 | CP.PCM.PN ---
Subjective - Date & Time of Evaluation Date of Evaluation: 07/31/17 Time of Evaluation: 08:30 - Subjective Subjective: [facility] Progress note for Dr. Headley Patient seen and examined at bedside. Nursing reported no acute events overnight. Patient to be discharged today. Denied acute complaints of headache, dizziness, chest pain, palpitations, SOB, cough, abd pain, nausea, vomiting, bowel/bladder complaints, pain/swelling in his legs b/l. Objective - Vital Signs/Intake and Output Vital Signs (last 24 hours): Temp Pulse Resp BP Pulse Ox 98.1 F 97 H 20 104/64 96 07/30/17 18:00 07/30/17 18:00 07/30/17 18:00 07/30/17 18:00 07/30/17 18:00 Intake and Output: 07/31/17 07/31/17 06:59 18:59 Intake Total 120 Output Total 125 Balance -5 - Medications Medications: Current Medications Al Hydrox/Mg Hydrox/Simethicone (Maalox Plus 30 Ml) 30 ml PO Q4 PRN PRN Reason: INDIGESTION Bisacodyl (Dulcolax) 10 mg RC DAILY [facility] Last Admin: 07/30/17 09:41 Dose: Not Given Docusate Sodium (Colace) 100 mg PO TID [facility] Last Admin: 07/30/17 18:00 Dose: Not Given Enoxaparin Sodium (Lovenox) 70 mg SC 0600,1800 [facility] PRN Reason: Protocol Last Admin: 07/31/17 05:36 Dose: 70 mg Insulin Human Lispro (Humalog Low) 0 units SC ACHS [facility] PRN Reason: Protocol Last Admin: 07/31/17 07:37 Dose: Not Given Levothyroxine Sodium (Synthroid) 100 mcg PO DAILY [facility] Last Admin: 07/30/17 09:41 Dose: 100 mcg Ondansetron HCl (Zofran Inj) 4 mg IVP Q4H PRN PRN Reason: Nausea/Vomiting Last Admin: 07/23/17 20:02 Dose: 4 mg Oxycodone HCl (Oxycodone Immediate Release Tab) 5 mg PO Q6H PRN PRN Reason: Pain, moderate (4-7) Last Admin: 07/31/17 05:44 Dose: 5 mg Pantoprazole Sodium (Protonix Ec Tab) 40 mg PO DAILY [facility] Last Admin: 07/30/17 09:41 Dose: 40 mg Warfarin Sodium (Coumadin) 10 mg PO 1800 [facility] PRN Reason: Protocol Last Admin: 07/30/17 18:11 Dose: 10 mg - Labs Labs: 07/31/17 06:00 07/31/17 06:00 PT 20.2 SECONDS (9.4-12.5) H 07/31/17 06:00 INR 1.74 (0.93-1.08) H 07/31/17 06:00 APTT 28.8 Seconds (25.1-36.5) 07/27/17 08:30 - Additional Findings Additional findings: - Constitutional Appears: No Acute Distress, Chronically Ill - Head Exam Head Exam: ATRAUMATIC, NORMAL INSPECTION, NORMOCEPHALIC - Eye Exam Eye Exam: EOMI, Normal appearance, PERRL. absent: Conjunctival injection, Scleral icterus - ENT Exam ENT Exam: Mucous Membranes Moist - Neck Exam Neck Exam: Full ROM - Respiratory Exam Respiratory Exam: Decreased Breath Sounds (R side), Clear to Ausculation Bilateral, NORMAL BREATHING PATTERN. absent: Accessory Muscle Use, Rales, Rhonchi, Wheezes, Respiratory Distress Additional comments: dressings c/d/i - Cardiovascular Exam Cardiovascular Exam: +S1, +S2 - GI/Abdominal Exam GI & Abdominal Exam: Soft, Normal Bowel Sounds Additional comments: output from biliary drain 50cc - Rectal Exam Rectal Exam: Deferred - Extremities Exam Extremities Exam: Pedal Edema (+3 b/l) - Neurological Exam Neurological Exam: Alert, Awake, Oriented x3 - Psychiatric Exam Psychiatric exam: Normal Affect, Normal Mood - Skin Skin Exam: Dry, Intact Assessment and Plan - Assessment and Plan (Free Text) Assessment: 72yo male 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 Patient was found to have ascites and pleural effusion and had large volume paracentesis with biliary stent exchange after which he was found to have right sided hydropneumothorax. Patient had thoracentesis 07/27 that drained 2.1L serous output- fluid cytology prelim negative- awaiting final report. Patient currently stable satting well on NC 3L and using IS. Patient's pain is well controlled and he has no acute complaints. Patient's INR 1.74 today. Patient to be discharged at to take 7.5mg coumadin tonight and 4mg coumadin on 08/01 and . Patient to return to [facility] for INR check on Thursday 08/03. Patient to also take Zarolxyn 2.5mg po MWF for b/l LE swelling. Patient to follow up with Dr. Headley upon discharge. Discussed with Dr. Kayode Rebolledo PGY2
[2017-07-31] MEDS: Pantoprazole 40 mg EC Tab PO SCH (09:18)
[2017-07-31] MEDS: Levothyroxine 100 MCG TAB PO SCH (09:18)
[2017-07-31 09:42] VITALS: BP 110/72; PULSE 96; RESP 22; TEMP 98.2; O2SAT 95
--- NOTE | 2017-07-31 12:44 | CP.PCM.DIS ---
<Salud Rowe - Last Filed: 07/31/17 15:54> Provider - Provider Date of Admission: 07/23/17 11:31 Attending physician: Nieves Ha MD Primary care physician: Michael Stoll MD Consults: JATINDER HORVATH [facility] Time Spent in preparation of Discharge (in minutes): 60 Diagnosis - Discharge Diagnosis (1) Ascites Status: Acute (2) Pleural effusion Status: Acute (3) Biliary drain displacement Status: Acute (4) DVT (deep venous thrombosis) Status: Acute (5) Liver mass Status: Acute Hospital Course - Lab Results Lab Results: Micro Results 07/23/17 14:20 Blood-Thru Central Line Blood Culture - Final NO GROWTH AFTER 5 DAYS 07/23/17 14:20 Blood-Thru Central Line Gram Stain - Final TEST NOT PERFORMED 07/23/17 14:30 Blood-Thru Central Line Blood Culture - Final NO GROWTH AFTER 5 DAYS Most Recent Lab Values WBC 6.8 10^3/ul (4.5-11.0) 07/31/17 06:00 RBC 3.17 10^6/uL (3.5-6.1) L 07/31/17 06:00 Hgb 9.5 g/dL (14.0-18.0) L 07/31/17 06:00 Hct 29.2 % (42.0-52.0) L 07/31/17 06:00 MCV 92.1 fl (80.0-105.0) 07/31/17 06:00 MCH 30.0 pg (25.0-35.0) 07/31/17 06:00 MCHC 32.5 g/dl (31.0-37.0) 07/31/17 06:00 RDW 18.9 % (11.5-14.5) H 07/31/17 06:00 Plt Count 533 10^3/uL (120.0-450.0) H 07/31/17 06:00 MPV 10.0 fl (7.0-11.0) 07/31/17 06:00 Gran % 62.0 % (50.0-68.0) 07/31/17 06:00 Lymph % (Auto) 17.5 % (22.0-35.0) L 07/31/17 06:00 [place] % (Auto) 18.1 % (1.0-6.0) H 07/31/17 06:00 Eos % (Auto) 2.1 % (1.5-5.0) 07/31/17 06:00 Baso % (Auto) 0.3 % (0.0-3.0) 07/31/17 06:00 Gran # 4.19 (1.4-6.5) 07/31/17 06:00 Lymph # (Auto) 1.2 (1.2-3.4) 07/31/17 06:00 [place] # (Auto) 1.2 (0.1-0.6) H 07/31/17 06:00 Eos # (Auto) 0.1 (0.0-0.7) 07/31/17 06:00 Baso # (Auto) 0.02 K/mm3 (0.0-2.0) 07/31/17 06:00 Neutrophils % (Manual) 92 % (50.0-70.0) H 07/23/17 06:20 Band Neutrophils % 3 % (0-2) H 07/23/17 06:20 Lymphocytes % (Manual) 4 % (22.0-35.0) L 07/23/17 06:20 Monocytes % (Manual) 1 % (1.0-6.0) 07/23/17 06:20 Platelet Evaluation Normal (NORMAL) 07/23/17 06:20 PT 20.2 SECONDS (9.4-12.5) H 07/31/17 06:00 INR 1.74 (0.93-1.08) H 07/31/17 06:00 APTT 28.8 Seconds (25.1-36.5) 07/27/17 08:30 pO2 85 mm/Hg (30-55) H 07/23/17 06:20 VBG pH 7.50 (7.32-7.43) H 07/23/17 06:20 VBG pCO2 32.0 (40-60) L 07/23/17 06:20 VBG HCO3 25.0 mmol/l (21-28) 07/23/17 06:20 VBG Total CO2 26.0 mmol.L (22-28) 07/23/17 06:20 VBG O2 Sat (Calc) 99.2 % (40-65) H 07/23/17 06:20 VBG Base Excess 2.4 mmol/L (0.0-2.0) H 07/23/17 06:20 VBG Potassium 2.6 mmol/L (3.6-5.2) L 07/23/17 06:20 Sodium 133.0 mmol/L (132-148) 07/23/17 06:20 Chloride 103.0 mmol/L (98-107) 07/23/17 06:20 Glucose 97 mg/dl (75-110) 07/23/17 06:20 Lactate 1.3 mmol/L (0.7-2.1) 07/23/17 06:20 FiO2 21.0 % 07/23/17 06:20 Sodium 134 mmol/L (132-148) 07/31/17 06:00 Potassium 4.4 mmol/L (3.6-5.0) 07/31/17 06:00 Chloride 100 mmol/L (98-107) 07/31/17 06:00 Carbon Dioxide 25 mmol/L (21-33) 07/31/17 06:00 Anion Gap 13 (10-20) 07/31/17 06:00 BUN 18 mg/dL (7-21) 07/31/17 06:00 Creatinine 0.8 mg/dl (0.8-1.5) 07/31/17 06:00 Est GFR ( Amer) > 60 07/31/17 06:00 Est GFR (Non-Af Amer) > 60 07/31/17 06:00 POC Glucose (mg/dL) 144 mg/dL (65-110) H 07/31/17 11:29 Random Glucose 130 mg/dL (70-110) H 07/31/17 06:00 Serum Osmolality 269 mosm/kg (272-300) L 07/23/17 12:50 Calcium 8.2 mg/dL (8.4-10.5) L 07/31/17 06:00 Phosphorus 2.4 mg/dL (2.5-4.5) L 07/26/17 05:10 Magnesium 2.3 mg/dL (1.7-2.2) H 07/26/17 05:10 Iron 16 ug/dL (45-180) L 07/23/17 18:07 TIBC 247 ug/dL (261-462) L 07/23/17 18:07 % Saturation 7 % (20-55) L 07/23/17 18:07 Ferritin 992.0 ng/mL 07/24/17 06:06 Total Bilirubin 0.8 mg/dL (0.2-1.3) 07/31/17 06:00 AST 32 U/L (17-59) 07/31/17 06:00 ALT 33 U/L (7-56) 07/31/17 06:00 Alkaline Phosphatase 265 U/L (38-126) H 07/31/17 06:00 Lactate Dehydrogenase 770 U/L (333-699) H 07/23/17 06:20 Total Creatine Kinase 94 U/L (35-230) 07/23/17 06:20 Troponin I 0.04 ng/mL D 07/23/17 06:20 Total Protein 6.2 g/dL (5.8-8.3) 07/31/17 06:00 Albumin 2.7 g/dL (3.0-4.8) L 07/31/17 06:00 Globulin 3.6 gm/dL 07/31/17 06:00 Albumin/Globulin Ratio 0.7 (1.1-1.8) L 07/31/17 06:00 Vitamin B12 > 1000 pg/mL (239-931) H 07/24/17 06:06 Folate 12.0 ng/mL 07/24/17 06:06 Procalcitonin 0.96 NG/ML (0.19-0.49) H 07/26/17 06:00 Free T4 0.72 ng/dL (0.78-2.19) L 07/25/17 13:00 TSH 3rd Generation 34.90 mIU/mL (0.46-4.68) H 07/25/17 06:28 Venous Blood Potassium 2.6 mmol/L (3.6-5.2) L 07/23/17 06:20 Blood Type B POSITIVE 07/23/17 14:30 Antibody Screen Negative 07/23/17 14:30 BBK History Checked Patient has bt 07/23/17 14:30 - Hospital Course Hospital Course: 72 year old [place] male with PMH metastatic cholangiocarcinoma with liver mets , status-post drainage of a subcapsular hematoma, status post conversion to a 14 -gauge internal-external drain into the duodenum on [place] therapy with gemcitabine, hypertension, CAD, presents for fever, worsening abdominal distention, constipation, generalized weakness, found to have massive ascites and bilateral pleural effusions, s/p paracentesis 3L and biliary stent exchange , complicated by right sided hydropneumothorax, s/p thoracentesis 2.1 L richard fluid. Treated with IV cefepime for 7 days. Pt underwent bridging to Coumadin. Dr Guerra and Dr Cruz consulted for pleural cath, deemed unnecessary for as patient is asymptomatic, saturating well. Patient's son spoke with Dr Guerra, who offered low hopes of surgery. Son states that he would like to send his father home to [facility], where he can peacefully. Pt's INR today is 1.74, discussed with Kayode, pt to go home on Coumadin 7.5 mg tonight, then 4 mg daily on weekend, then INR check on Thursday at [facility] clinic. Pt to resume meds as taken previously, dr stoll on board. Discharge Exam - Additional Findings Additional findings: - Constitutional Appears: No Acute Distress, Chronically Ill - Head Exam Head Exam: ATRAUMATIC, NORMOCEPHALIC - Eye Exam Eye Exam: EOMI, PERRL. absent: Conjunctival injection, Scleral icterus Pupil Exam: NORMAL ACCOMODATION, PERRL. absent: Fixed, Irregular, Miosis, Unequal - ENT Exam ENT Exam: Mucous Membranes Moist - Neck Exam Neck exam: Positive for: Full Rom - Respiratory Exam Respiratory Exam: Decreased Breath Sounds. Dullness to percussion on RLL and RML. right sided thoracentesis dressing in place, c/d/i. absent: Chest Wall Tenderness, Wheezes, Respiratory Distress, Stridor - Cardiovascular Exam Cardiovascular Exam: +S1, +S2. absent: Systolic Murmur - GI/Abdominal Exam GI & Abdominal Exam: soft, Normal Bowel Sounds. + biliary tube draining bilious fluid. absent: Firm, Guarding, Rebound, Rigid. - Extremities Exam Extremities exam: Positive for: pedal edema (2-3+ bilaterally), pedal pulses present. Negative for: calf tenderness - Back Exam Back exam: NORMAL INSPECTION. absent: CVA tenderness (L), CVA tenderness (R) - Neurological Exam Neurological exam: Alert, Oriented x3 - Psychiatric Exam Psychiatric exam: Normal Affect, Normal Mood - Skin Skin Exam: Dry, Normal Color, Warm Discharge Plan - Discharge Medications Prescriptions: metOLazone [Zaroxolyn] 2.5 mg PO MWF 30 Days tab Naproxen Sodium [Anaprox Ds] 550 mg PO BID 7 Days tablet Warfarin [Coumadin] 4 mg PO 1800 #4 tab Warfarin [Coumadin] 7.5 mg PO 1800 #1 tab - Follow Up Plan Condition: GUARDED Disposition: HOME/ ROUTINE Instructions: Pleural Effusion (DC), Fluid in the Belly (Ascites) (DC), Thoracentesis (DC), Deep Venous Thrombosis (DC) Additional Instructions: - Continue home medications, except Coumadin. You will take Coumadin 7.5 mg tonight (Thursday), then take Coumadin 4 mg on Thursday and Thursday. Please get INR check at [facility] on 08/03/17. - Follow up with Dr Guerra within 1 week. - Follow up with Dr Stoll in 1 week. - Follow up [facility] [place] [facility] [place] Return to ER if symptoms worsen. Referrals: Michael Stoll MD [Primary Care Provider] - <Nieves Ha - Last Filed: 07/31/17 17:04> Provider - Provider Date of Admission: 07/23/17 11:31 Attending physician: Nieves Ha MD Primary care physician: Michael Stoll MD Hospital Course - Lab Results Lab Results: Micro Results 07/23/17 14:20 Blood-Thru Central Line Blood Culture - Final NO GROWTH AFTER 5 DAYS 07/23/17 14:20 Blood-Thru Central Line Gram Stain - Final TEST NOT PERFORMED 07/23/17 14:30 Blood-Thru Central Line Blood Culture - Final NO GROWTH AFTER 5 DAYS Most Recent Lab Values WBC 6.8 10^3/ul (4.5-11.0) 07/31/17 06:00 RBC 3.17 10^6/uL (3.5-6.1) L 07/31/17 06:00 Hgb 9.5 g/dL (14.0-18.0) L 07/31/17 06:00 Hct 29.2 % (42.0-52.0) L 07/31/17 06:00 MCV 92.1 fl (80.0-105.0) 07/31/17 06:00 MCH 30.0 pg (25.0-35.0) 07/31/17 06:00 MCHC 32.5 g/dl (31.0-37.0) 07/31/17 06:00 RDW 18.9 % (11.5-14.5) H 07/31/17 06:00 Plt Count 533 10^3/uL (120.0-450.0) H 07/31/17 06:00 MPV 10.0 fl (7.0-11.0) 07/31/17 06:00 Gran % 62.0 % (50.0-68.0) 07/31/17 06:00 Lymph % (Auto) 17.5 % (22.0-35.0) L 07/31/17 06:00 [place] % (Auto) 18.1 % (1.0-6.0) H 07/31/17 06:00 Eos % (Auto) 2.1 % (1.5-5.0) 07/31/17 06:00 Baso % (Auto) 0.3 % (0.0-3.0) 07/31/17 06:00 Gran # 4.19 (1.4-6.5) 07/31/17 06:00 Lymph # (Auto) 1.2 (1.2-3.4) 07/31/17 06:00 [place] # (Auto) 1.2 (0.1-0.6) H 07/31/17 06:00 Eos # (Auto) 0.1 (0.0-0.7) 07/31/17 06:00 Baso # (Auto) 0.02 K/mm3 (0.0-2.0) 07/31/17 06:00 Neutrophils % (Manual) 92 % (50.0-70.0) H 07/23/17 06:20 Band Neutrophils % 3 % (0-2) H 07/23/17 06:20 Lymphocytes % (Manual) 4 % (22.0-35.0) L 07/23/17 06:20 Monocytes % (Manual) 1 % (1.0-6.0) 07/23/17 06:20 Platelet Evaluation Normal (NORMAL) 07/23/17 06:20 PT 20.2 SECONDS (9.4-12.5) H 07/31/17 06:00 INR 1.74 (0.93-1.08) H 07/31/17 06:00 APTT 28.8 Seconds (25.1-36.5) 07/27/17 08:30 pO2 85 mm/Hg (30-55) H 07/23/17 06:20 VBG pH 7.50 (7.32-7.43) H 07/23/17 06:20 VBG pCO2 32.0 (40-60) L 07/23/17 06:20 VBG HCO3 25.0 mmol/l (21-28) 07/23/17 06:20 VBG Total CO2 26.0 mmol.L (22-28) 07/23/17 06:20 VBG O2 Sat (Calc) 99.2 % (40-65) H 07/23/17 06:20 VBG Base Excess 2.4 mmol/L (0.0-2.0) H 07/23/17 06:20 VBG Potassium 2.6 mmol/L (3.6-5.2) L 07/23/17 06:20 Sodium 133.0 mmol/L (132-148) 07/23/17 06:20 Chloride 103.0 mmol/L (98-107) 07/23/17 06:20 Glucose 97 mg/dl (75-110) 07/23/17 06:20 Lactate 1.3 mmol/L (0.7-2.1) 07/23/17 06:20 FiO2 21.0 % 07/23/17 06:20 Sodium 134 mmol/L (132-148) 07/31/17 06:00 Potassium 4.4 mmol/L (3.6-5.0) 07/31/17 06:00 Chloride 100 mmol/L (98-107) 07/31/17 06:00 Carbon Dioxide 25 mmol/L (21-33) 07/31/17 06:00 Anion Gap 13 (10-20) 07/31/17 06:00 BUN 18 mg/dL (7-21) 07/31/17 06:00 Creatinine 0.8 mg/dl (0.8-1.5) 07/31/17 06:00 Est GFR ( Amer) > 60 07/31/17 06:00 Est GFR (Non-Af Amer) > 60 07/31/17 06:00 POC Glucose (mg/dL) 144 mg/dL (65-110) H 07/31/17 11:29 Random Glucose 130 mg/dL (70-110) H 07/31/17 06:00 Serum Osmolality 269 mosm/kg (272-300) L 07/23/17 12:50 Calcium 8.2 mg/dL (8.4-10.5) L 07/31/17 06:00 Phosphorus 2.4 mg/dL (2.5-4.5) L 07/26/17 05:10 Magnesium 2.3 mg/dL (1.7-2.2) H 07/26/17 05:10 Iron 16 ug/dL (45-180) L 07/23/17 18:07 TIBC 247 ug/dL (261-462) L 07/23/17 18:07 % Saturation 7 % (20-55) L 07/23/17 18:07 Ferritin 992.0 ng/mL 07/24/17 06:06 Total Bilirubin 0.8 mg/dL (0.2-1.3) 07/31/17 06:00 AST 32 U/L (17-59) 07/31/17 06:00 ALT 33 U/L (7-56) 07/31/17 06:00 Alkaline Phosphatase 265 U/L (38-126) H 07/31/17 06:00 Lactate Dehydrogenase 770 U/L (333-699) H 07/23/17 06:20 Total Creatine Kinase 94 U/L (35-230) 07/23/17 06:20 Troponin I 0.04 ng/mL D 07/23/17 06:20 Total Protein 6.2 g/dL (5.8-8.3) 07/31/17 06:00 Albumin 2.7 g/dL (3.0-4.8) L 07/31/17 06:00 Globulin 3.6 gm/dL 07/31/17 06:00 Albumin/Globulin Ratio 0.7 (1.1-1.8) L 07/31/17 06:00 Vitamin B12 > 1000 pg/mL (239-931) H 07/24/17 06:06 Folate 12.0 ng/mL 07/24/17 06:06 Procalcitonin 0.96 NG/ML (0.19-0.49) H 07/26/17 06:00 Free T4 0.72 ng/dL (0.78-2.19) L 07/25/17 13:00 TSH 3rd Generation 34.90 mIU/mL (0.46-4.68) H 07/25/17 06:28 Venous Blood Potassium 2.6 mmol/L (3.6-5.2) L 07/23/17 06:20 Blood Type B POSITIVE 07/23/17 14:30 Antibody Screen Negative 07/23/17 14:30 BBK History Checked Patient has bt 07/23/17 14:30 Attending/Attestation - Attestation I have personally seen and examined this patient.: Yes I have fully participated in the care of the patient.: Yes I have reviewed all pertinent clinical information, including history, physical exam and plan: Yes Notes (Text): 07/31/17 17:02 72 year old male with past medical history of metastatic cholangiocarcinoma with liver mets, s/p drainage of subcapsular hematoma, s/p internal/external drain converstion, on chemotherapy, hypertension, and CAD who presented with abdominal pain and distention. He was found to have ascites and bilateral pleural effusions. He is s/p paracentesis and biliary stent exchange last week. He was then found to have right sided hydropneumothorax s/p thoracocentesis earlier this. Repeat CXR shows large pleural effusion. IR and cardiothoracic surgery input was appreciated; no acute surgical intervention planned as patient is comfortable without respiratory distress and comfortable. He was on lovenox and coumadin bridge for history of bilateral DVT. INR level has been improving. Patient will be discharged home to follow up at [facility] on Thursday to repeat INR. Follow up with Dr. Pierson and Dr. Guerra. Nieves Ha MD Hospitalist.
--- NOTE | 2017-07-31 13:12 | CP.PCM.PN ---
Subjective - Date & Time of Evaluation Date of Evaluation: 07/31/17 Time of Evaluation: 13:00 - Subjective Subjective: Weak. Denies pain. Objective - Vital Signs/Intake and Output Vital Signs (last 24 hours): Temp Pulse Resp BP Pulse Ox 98.2 F 96 H 22 110/72 95 07/31/17 06:00 07/31/17 06:00 07/31/17 06:00 07/31/17 06:00 07/31/17 06:00 Intake and Output: 07/31/17 07/31/17 06:59 18:59 Intake Total 120 Output Total 125 Balance -5 - Medications Medications: Current Medications Al Hydrox/Mg Hydrox/Simethicone (Maalox Plus 30 Ml) 30 ml PO Q4 PRN PRN Reason: INDIGESTION Bisacodyl (Dulcolax) 10 mg RC DAILY [facility] Last Admin: 07/31/17 09:18 Dose: 10 mg Docusate Sodium (Colace) 100 mg PO TID [facility] Last Admin: 07/31/17 09:18 Dose: 100 mg Enoxaparin Sodium (Lovenox) 70 mg SC 0600,1800 [facility] PRN Reason: Protocol Last Admin: 07/31/17 05:36 Dose: 70 mg Insulin Human Lispro (Humalog Low) 0 units SC ACHS [facility] PRN Reason: Protocol Last Admin: 07/31/17 11:36 Dose: Not Given Levothyroxine Sodium (Synthroid) 100 mcg PO DAILY [facility] Last Admin: 07/31/17 09:18 Dose: 100 mcg Ondansetron HCl (Zofran Inj) 4 mg IVP Q4H PRN PRN Reason: Nausea/Vomiting Last Admin: 07/23/17 20:02 Dose: 4 mg Oxycodone HCl (Oxycodone Immediate Release Tab) 5 mg PO Q6H PRN PRN Reason: Pain, moderate (4-7) Last Admin: 07/31/17 12:22 Dose: 5 mg Pantoprazole Sodium (Protonix Ec Tab) 40 mg PO DAILY [facility] Last Admin: 07/31/17 09:18 Dose: 40 mg Warfarin Sodium (Coumadin) 10 mg PO 1800 [facility] PRN Reason: Protocol Last Admin: 07/30/17 18:11 Dose: 10 mg - Labs Labs: 07/31/17 06:00 07/31/17 06:00 PT 20.2 SECONDS (9.4-12.5) H 07/31/17 06:00 INR 1.74 (0.93-1.08) H 07/31/17 06:00 APTT 28.8 Seconds (25.1-36.5) 07/27/17 08:30 - Constitutional Appears: Cachectic, Chronically Ill - Eye Exam Eye Exam: PERRL, Scleral icterus - ENT Exam ENT Exam: Mucous Membranes Moist, Normal Oropharynx - Respiratory Exam Respiratory Exam: Decreased Breath Sounds, NORMAL BREATHING PATTERN - Cardiovascular Exam Cardiovascular Exam: REGULAR RHYTHM, +S1, +S2 - GI/Abdominal Exam GI & Abdominal Exam: Distended, Soft, Hypoactive Bowel Sounds - Extremities Exam Additional comments: lower extremities edematous L>R - Back Exam Back Exam: NORMAL INSPECTION - Neurological Exam Neurological Exam: Alert - Skin Skin Exam: Dry, Pallor Assessment and Plan - Assessment and Plan (Free Text) Assessment: 72 year old male with history of metastatic cholangiocarcinoma, DVT and ascites who was admitted with abdominal distention, weakness, cachexia and pleural effusions The patient is scheduled to be discharged home today. I spoke with son again about initiating POST: DNR/DNI. Son states he does not think it is necessary to do POLST. Son states that he is with his father all the time and doesn't plan on bringing him back to the hospital. Son plans on taking father to [place] next week. Time spent in advance care planning discussion with son, 15 minutes Plan: Goals of care and advance care planning Follow up with oncology Follow up with IR for paracentisis
== END 2017-07-31 18:44 | disposition home or self-care (01) | DRG 187 ==
LOC: ED 05:38 → ERH 11:31 → 3RNO 12:46
PROVIDERS: ADMIT Internal Medicine; ATTEND Internal Medicine
PROC: 0W9G3ZZ Drainage of Peritoneal Cavity, Percutaneous Approach (ICD-10-PCS; 2017-07-24)
PROC: 0F2BX0Z Change Drainage Device in Hepatobiliary Duct, External Approach (ICD-10-PCS; 2017-07-24)
PROC: 30233K1 Transfusion of Nonautologous Frozen Plasma into Peripheral Vein, Percutaneous Approach (ICD-10-PCS; 2017-07-24)
PROC: 0W993ZX Drainage of Right Pleural Cavity, Percutaneous Approach, Diagnostic (ICD-10-PCS; principal; 2017-07-27 11:30)
DX: J90 Pleural effusion, not elsewhere classified (principal); C78.6 Secondary malignant neoplasm of retroperitoneum and peritoneum; C22.1 Intrahepatic bile duct carcinoma; R18.0 Malignant ascites; R64 Cachexia; J98.11 Atelectasis; J94.8 Other specified pleural conditions; E87.1 Hypo-osmolality and hyponatremia; T85.520A Displacement of bile duct prosthesis, initial encounter; D63.8 Anemia in other chronic diseases classified elsewhere; E11.9 Type 2 diabetes mellitus without complications; I10 Essential (primary) hypertension; I25.10 Atherosclerotic heart disease of native coronary artery without angina pectoris; K59.00 Constipation, unspecified; E87.6 Hypokalemia; E89.0 Postprocedural hypothyroidism; Z68.24 Body mass index [BMI] 24.0-24.9, adult; Z79.01 Long term (current) use of anticoagulants; Z95.5 Presence of coronary angioplasty implant and graft; Z86.718 Personal history of other venous thrombosis and embolism; Z92.21 Personal history of antineoplastic chemotherapy; Z79.82 Long term (current) use of aspirin; Z79.4 Long term (current) use of insulin; Z87.891 Personal history of nicotine dependence; Y83.8 Other surgical procedures as the cause of abnormal reaction of the patient, or of later complication, without mention of misadventure at the time of the procedure